=== PATIENT | female | born 1965 | race African-American/Black ===

== ENCOUNTER 2017-07-05 12:44 | Emergency (ER) | payer OTHER ==
[2017-07-05 13:09] VITALS: BP 130/49; PULSE 87; TEMP 97.4; BMI 47.2
== END 2017-07-05 18:25 | disposition left against medical advice (07) ==
LOC: JER 12:44
DX: Z53.21 Procedure and treatment not carried out due to patient leaving prior to being seen by health care provider (principal)
CPT/HCPCS: 99281-25

== ENCOUNTER 2017-08-03 17:27 | Inpatient (IN) | payer OTHER ==
--- NOTE | 2017-08-03 17:44 | PDOC ---
History of Present Illness - General History Source: Patient Exam Limitations: No Limitations - History of Present Illness Initial Comments: 08/03/17 18:25 The patient is a 52 year old female, with a significant past medical history of chronic back pain, ESRD, obesity, hypertension, DM, who presents to the emergency department with, constant chest pain beginning yesterday morning and periumbilical abdominal pain s/p surgery. The patient reports the chest pain is non radiating and described as a dull ache with a burning sensation. The patient reports the chest pain has been progressively worse since yesterday. She reports mild shortness of breath with exertion. The patient reports the periumbilical abdominal pain is at the incision site of a recent surgery performed at [facility] by Dr. José. The patient is unable to recall which specific surgery was performed. The patient also reports she recently missed her dialysis treatment on Monday secondary to the abdominal pain. She denies recent fevers, chills, headache or dizziness. She denies recent nausea, vomit, diarrhea or constipation. She denies recent dysuria, frequency, urgency or hematuria. Allergies: NKA Primary Care Physician: Dr. Lau <Clyde Light - Last Filed: 08/03/17 21:05> <Evelina Araiza - Last Filed: 08/03/17 21:10> - General Stated Complaint: ABD PAIN Time Seen by Provider: 08/03/17 17:44 Past History <Clyde Light - Last Filed: 08/03/17 21:05> - Past Medical History Anemia: No Asthma: Yes Cancer: No Cardiac Disorders: No CVA: No COPD: No CHF: No Dementia: No Diabetes: Yes (DM) Dialysis: Yes (M-W-F) GI Disorders: Yes (UMBALICAL HERNIA) Disorders: No HTN: Yes Hypercholesterolemia: No Liver Disease: No Psychiatric Problems: Yes (PSTD w/ panic disorder) Seizures: No Thyroid Disease: No - Surgical History Abdominal Surgery: Yes (UMB.HERNIA X 5 / mesh placement x2 /) Appendectomy: No Cardiac Surgery: No Cholecystectomy: No Lung Surgery: No Neurologic Surgery: No - Immunization History Immunization Up to Date: Yes - Suicide/Smoking/Psychosocial Hx Smoking Status: Yes Smoking History: Current every day smoker Have you smoked in the past 12 months: Yes Number of Cigarettes Smoked Daily: 20 'Breaking Loose' booklet given: 05/12/17 Hx Alcohol Use: No Drug/Substance Use Hx: No Substance Use Type: None <Evelina Araiza - Last Filed: 08/03/17 21:10> - Past Medical History Allergies/Adverse Reactions: Allergies Allergy/AdvReac Type Severity Reaction Status Date / Time No Known Allergies Allergy Verified 07/05/17 13:04 Home Medications: Ambulatory Orders Albuterol Sulfate Inhaler - [Ventolin Hfa Inhaler -] 1 - 2 inh PO Q4H 05/11/17 Clopidogrel Bisulfate [Plavix -] 75 mg PO DAILY 05/11/17 Furosemide [Lasix] 80 mg PO DAILY 05/11/17 Nystatin Oral Suspension - [Nystatin Oral Susp 801227 Units/5 ML -] 100,000 units PO DAILY 05/11/17 Omeprazole 40 mg PO DAILY 05/11/17 Pregabalin [Lyrica] 100 mg PO DAILY 05/11/17 Salmeterol/Fluticasone [Advair 250Mcg/50Mcg] 1 inh PO BID 05/11/17 Simvastatin 40 mg PO DAILY 05/11/17 Review of Systems - Review of Systems Comments:: 08/03/17 18:27 GENERAL/CONSTITUTIONAL: No fever or chills. No weakness. HEAD, EYES, EARS, NOSE AND THROAT: No change in vision. No ear pain or discharge. No sore throat. CARDIOVASCULAR: +Chest pain. +Mild shortness of breath with walking. RESPIRATORY: No cough, wheezing, or hemoptysis. GASTROINTESTINAL: +Abdominal pain at the periumbilical surgical site. No nausea , vomiting, diarrhea or constipation. GENITOURINARY: No dysuria, frequency, or change in urination. MUSCULOSKELETAL: No joint or muscle swelling or pain. +Back pain (pt. states is chronic). SKIN: No rash NEUROLOGIC: No headache, vertigo, loss of consciousness, or change in strength/ sensation. ENDOCRINE: No increased thirst. No abnormal weight change. HEMATOLOGIC/LYMPHATIC: No anemia, easy bleeding, or history of blood clots. ALLERGIC/IMMUNOLOGIC: No hives or skin allergy. <Clyde Light - Last Filed: 08/03/17 21:05> *Physical Exam - Vital Signs Last Vital Signs Temp Pulse Resp BP Pulse Ox 97.8 F 81 18 144/98 100 01/25/18 17:30 08/03/17 17:30 08/03/17 17:30 08/03/17 17:30 08/03/17 17:30 - Physical Exam Comments: 08/03/17 18:29 GENERAL: +Morbidly obese. Awake, alert, and fully oriented. HEAD: No signs of trauma EYES: PERRLA, EOMI, sclera anicteric, conjunctiva clear ENT: Auricles normal inspection, hearing grossly normal, nares patent, oropharynx clear without exudates. Moist mucosa NECK: Normal ROM, supple, no lymphadenopathy, JVD, or masses LUNGS: +Lung sounds diminished bilaterally. HEART: Regular rate and rhythm, normal S1 and S2, no murmurs, rubs or gallops ABDOMEN: +Periumbilical surgical incision with drainage. Soft, normoactive bowel sounds. EXTREMITIES: +Right upper extremity fistula. 2+ pedal edema in the legs bilaterally. No clubbing or cyanosis. NEUROLOGICAL: Cranial nerves II through XII grossly intact. Normal speech. SKIN: Warm, Dry, normal turgor, no rashes or lesions noted. <Clyde Light - Last Filed: 08/03/17 21:05> Heart Score/ECG Review - ECG Intrepretation Comment:: 08/03/17 19:43 sinus at 80, nl axis, nl interval, low voltage ekg, no acute st/t wave findings , t wave flattening diffusely <Evelina Araiza - Last Filed: 08/03/17 21:10> ED Treatment Course - RADIOLOGY Radiograph Interpretation: 08/03/17 20:42 EXAM#: TYPE/EXAM: RESULT: [id number] CT/ABDOMEN PELVIS CT W/O CONTR HISTORY PROVIDED: Abdominal pain TECHNIQUE: Sequential axial images were obtained from the domes of the diaphragm through the symphysis pubis. The study is limited without the use of any contrast material. The lung bases are clear. The kidneys are enlarged with innumerable small cysts bilaterally. This appearance is consistent with adult polycystic kidney disease. Clinical correlation is advised. There is no evidence of hydronephrosis or acute renal pathology. The liver is normal in size. It is hypodense in texture consistent with diffuse fatty infiltration. No mass lesions are identified within the liver. The spleen, pancreas and adrenal glands demonstrate no significant abnormalities. The gallbladder is clear. There is no evidence of intra-abdominal or retroperitoneal lymphadenopathy or fluid collections. There is no evidence of pneumoperitoneum, bowel obstruction or intra-abdominal abscess. There is no CT evidence of acute appendicitis or diverticulitis. Examination of the pelvis demonstrates no evidence of pelvic masses, fluid collections or lymphadenopathy. The patient is S/P mesh hernia repair of the lower anterior abdominal wall. There is no evidence of acute bony pathology. IMPRESSION: 1. Adult polycystic kidney disease. 2. Diffuse fatty infiltration of the liver. 3. No acute pathology within the abdomen or pelvis. Please see above discussion. Reported By: Markus Brian MD <Clyde Light - Last Filed: 08/03/17 21:05> Medical Decision Making - Medical Decision Making 08/03/17 19:[address] Harley at 7:15 pm. Page returned by Dr. Harley at 7:26 pm. Page sent to Dr. Hennessy at 8:12 pm. Page returned immediately by Dr. Miranda (adult basic education instructor). Page sent to Dr. Lau at 8:25 pm. Pending call back. Second page to Dr. Lau at 8:45 pm. Pending call back. Page sent to Dr. Lau (Cell) at 8:50 pm. Page returned immediately. <Clyde Light - Last Filed: 08/03/17 21:05> - Medical Decision Making 08/03/17 19:38 a/p: 52yo female with cp, abd pain, fluid overload, esrd and missed 1 week of hd -labs, cultures, abx -ekg -cxr -abd/pelvis ct -infected wound to anterior abd wall -will discuss with nephro -will need admission 08/03/17 19:39 after multiple attempts to obtain iv access unable to obtain discussed with DR. Harley who will draw labs on hd and set up for abx on hd will give vanc and gent on HD microblog sent to [facility] for admission 08/03/17 20:[address] doll who will be in to see the patient will call the ICU for HD setup call placed to Dr. Yoo 08/03/17 20:[address] Jacobo who accepts pt to the ICU 08/03/17 21:[address] Holcomb who accepts pt to service under Dr. Morton <Evelina Araiza - Last Filed: 08/03/17 21:10> *DC/Admit/Observation/Transfer - Attestations Scribe Attestion: 08/03/17 18:33 Documentation prepared by Clyde Light, acting as director of medical education for Evelina Araiza DO. <Clyde Light - Last Filed: 08/03/17 21:05> - Discharge Dispostion Admit: Yes - Attestations Physician Attestion: 08/03/17 19:43 I, Dr. Evelina Araiza DO, attest that this document has been prepared under my direction and personally reviewed by me in its entirety. I further attest, that it accurately reflects all work, treatment, procedures and medical decision -making performed by me. <Evelina Araiza - Last Filed: 08/03/17 21:10> Diagnosis at time of Disposition: Obesity, ESRD (end stage renal disease), Abdominal pain, HTN (hypertension), Volume overload, Chest pain - Discharge Dispostion Condition at time of disposition: Fair - Referrals Referrals: Travis Orta MD [Primary Care Provider] - - Patient Instructions - Post Discharge Activity
[2017-08-03 18:09] VITALS: BMI 476.3
[2017-08-03] MEDS ORDERED: GENTAMICIN INJECTION 100 MG in DEXTROSE 5%-WATER - 250 ML IVPB SCH (19:45)
[2017-08-03] MEDS ORDERED: GENTAMICIN INJECTION 100 MG in SODIUM CHLORIDE 97.5 ML IVPB ONE (21:05)
--- NOTE | 2017-08-03 21:23 | CONSULT ---
Consult Consult Specialty:: Nephrology Reason for Consultation:: ESRD on HD - History of Present Illness Chief Complaint: abdominal discomfort History of Present Illness: Pt is a 52 year old female with pmhx of ESRD, obesity, HTN, DM and chronic abdominal wall wound who presents to the ER complaining of periumbilical pain and increased discharge from her abdominal wound. She denies palpitations or shortness of breath. Her last HD session was on Monday. She complains of chills but denies fevers. She has appetite but says she has not been eating as much as she usually does. She also complains of chest discomfort that has been intermittent for the last 5 days. ER is usable to get IV access or draw labs. I was called for HD and asked to send bloodwork. - History Source History Provided By: Patient, Medical Record - Past Medical History Cardio/Vascular: Yes: HTN, Other (obesity) Pulmonary: Yes: Asthma, Sleep Apnea (on CPAP at home) Gastrointestinal: Yes: Constipation (chronic on opioids), Diverticulosis, GERD Renal/: Yes: Renal Failure (ESRD on HD for 4 years due to polycystic disease) , Hemodialysis Psych: Yes: Anxiety, Other (post traumatic stress disorder) Musculoskeletal: Yes: Chronic low back pain Endocrine: Yes: Diabetes Mellitus, Hyperparathyroidism - Past Surgical History Past Surgical History: Yes: AV Fistula/Graft (R arm), Hernia Repair (x3) - Alcohol/Substance Use Hx Alcohol Use: No - Smoking History Smoking history: Current every day smoker Have you smoked in the past 12 months: Yes Aproximately how many cigarettes per day: 20 - Social History Usual Living Arrangement: With Child ADL: Support Services (has an aid now has 2 kids) History of Recent Travel: No Home Medications - Allergies Allergies/Adverse Reactions: Allergies Allergy/AdvReac Type Severity Reaction Status Date / Time No Known Allergies Allergy Verified 07/05/17 13:04 - Home Medications Home Medications: Ambulatory Orders Albuterol Sulfate Inhaler - [Ventolin Hfa Inhaler -] 1 - 2 inh PO Q4H 05/11/17 Clopidogrel Bisulfate [Plavix -] 75 mg PO DAILY 05/11/17 Furosemide [Lasix] 80 mg PO DAILY 05/11/17 Nystatin Oral Suspension - [Nystatin Oral Susp 452323 Units/5 ML -] 100,000 units PO DAILY 05/11/17 Omeprazole 40 mg PO DAILY 05/11/17 Pregabalin [Lyrica] 100 mg PO DAILY 05/11/17 Salmeterol/Fluticasone [Advair 250Mcg/50Mcg] 1 inh PO BID 05/11/17 Simvastatin 40 mg PO DAILY 05/11/17 Family Disease History - Family Disease History Family Disease History: Other: Mother (polycystic disease, CVA, brain aneurysm) , Son, Daughter Review of Systems - Review of Systems Constitutional: reports: Chills, Malaise. denies: Fever Eyes: reports: No Symptoms HENT: reports: No Symptoms, Ocular Prosthesis Cardiovascular: reports: Chest Pain, Edema. denies: Palpitations Respiratory: reports: SOB on Exertion Gastrointestinal: reports: Abdominal Pain Genitourinary: reports: No Symptoms Musculoskeletal: reports: No Symptoms Integumentary: reports: No Symptoms Neurological: reports: No Symptoms Endocrine: reports: No Symptoms Hematology/Lymphatic: reports: No Symptoms Psychiatric: reports: No Symptoms Physical Exam Vital Signs: Vital Signs Temperature 97.8 F 08/03/17 17:30 Pulse Rate 81 08/03/17 17:30 Respiratory Rate 18 08/03/17 17:30 Blood Pressure 144/98 08/03/17 17:30 O2 Sat by Pulse Oximetry (%) 100 08/03/17 17:30 Constitutional: Yes: Calm Eyes: Yes: Conjunctiva Clear HENT: Yes: Atraumatic Neck: Yes: Supple Cardiovascular: Yes: S1, S2 Respiratory: Yes: CTA Bilaterally Gastrointestinal: Yes: Soft, Abdomen, Obese, Other (abdominal wall wound that is draining) Renal/: Yes: WNL Musculoskeletal: Yes: WNL Edema: Yes Edema: LLE: 1+, RLE: 1+ Neurological: Yes: Oriented Psychiatric: Yes: Oriented Imaging - Results Chest X-ray: Report Reviewed Cat Scan: Report Reviewed Problem List - Problems (1) Abdominal pain Code(s): R10.9 - UNSPECIFIED ABDOMINAL PAIN Qualifiers: (2) Chest pain Code(s): R07.9 - CHEST PAIN, UNSPECIFIED (3) ESRD (end stage renal disease) Code(s): N18.6 - END STAGE RENAL DISEASE (4) HTN (hypertension) Code(s): I10 - ESSENTIAL (PRIMARY) HYPERTENSION Qualifiers: (5) Obesity Code(s): E66.9 - OBESITY, UNSPECIFIED (6) ESRD (end stage renal disease) on dialysis Code(s): N18.6 - END STAGE RENAL DISEASE; Z99.2 - DEPENDENCE ON RENAL DIALYSIS Assessment/Plan Current Medications Generic Name Dose Route Start Last Admin Trade Name Freq PRN Reason Stop Dose Admin Clopidogrel Bisulfate 75 mg 08/04/17 10:00 Plavix - PO DAILY DAVID Gentamicin Sulfate 100 mg/ 252.5 mls @ 250 mls/hr 08/03/17 19:45 Dextrose IVPB ONCE DAVID Vancomycin HCl 1,000 mg/ 250 mls @ 250 mls/hr 08/03/17 19:41 Dextrose IVPB 08/03/17 20:40 ONCE ONE Protocol Gentamicin Sulfate 100 mg/ 100 mls @ 100 mls/hr 08/03/17 21:05 Sodium Chloride IVPB 08/03/17 22:04 ONCE ONE Vancomycin HCl 1,000 mg/ 250 mls @ 200 mls/hr 08/03/17 21:05 Dextrose IVPB 08/03/17 22:19 ONCE ONE Non-Formulary Medication 80 mg 08/04/17 10:00 Furosemide [Lasix] PO DAILY DAVID Non-Formulary Medication 40 mg 08/04/17 10:00 Omeprazole [Omeprazole] PO DAILY DAVID Non-Formulary Medication 1 inh 08/03/17 22:00 Salmeterol/Fluticasone [Advair 250mcg/50mcg -] PO BID DAVID Pregabalin 100 mg 08/04/17 10:00 Lyrica - PO DAILY DAVID Sevelamer Carbonate 800 mg 08/04/17 08:00 Renvela - PO TIDCM [facility] Impression 1. ESRD 2. abdominal pain 3. hx ischemic bowel 4. htn 5. dm 6. asthma 7. obesity 8. anxiety 9. sleep apnea 10. polycystic kidney disease Plan - will arrange for urgent HD today as pt was last dialyzed on Monday - will send bloodwork on HD - spoke to ER can give abx on HD as well - pt being admitted to the ICU, pending a bed - case discussed with ICU team - ecg 80 bpm - cardio eval - surgery eval - send cultures - will follow Dr Romano
[2017-08-03] MEDS: BUDESONIDE/FORMETEROL FUMARATE 80/4.5 mcg INHALER IH SCH (22:19)
--- NOTE | 2017-08-03 23:59 | CONSULT ---
Consult Consult Specialty:: PULM /CCM Referred by:: Dr. Tequila Velazco Reason for Consultation:: Metabolic Disarray - History of Present Illness Chief Complaint: Abd Pain History of Present Illness: Ms Marlena Rubio is a 52 y/o woman w/ ESRD on HD (Mon//Mon), obesity, HTN, DM and a chronic abd wall wound from a remote abd obstruction sx done @ [facility]. The pt presents to the ED in metabolic disarray in the setting of having missed her last 2 HD sessions. The pt explains that she missed her HD 2/2 abd discomfort. The pt endorses periumbilical pain and increased discharge from her abd wound X 6 Days. She denies any palpitations or SOB. She has an appetite (but states she has not been eating as much as she usually does). The pt does endorse intermittent chest discomfort X past 5 days w/ an increasing pace matching her growing anasarca. She c/o chills but denies any fevers. In the ED pt remark for metabolic disarray. CTAP neg for any acute process. Pt admitted to the ICU now for emergent HD. - History Source History Provided By: Patient, Medical Record - Past Medical History Cardio/Vascular: Yes: HTN, Other (obesity) Pulmonary: Yes: Asthma, Sleep Apnea (on CPAP at home) Gastrointestinal: Yes: Constipation (chronic on opioids), Diverticulosis, GERD Renal/: Yes: Renal Failure (ESRD on HD for 4 years due to polycystic disease) , Hemodialysis Psych: Yes: Anxiety, Other (post traumatic stress disorder) Musculoskeletal: Yes: Chronic low back pain Endocrine: Yes: Diabetes Mellitus, Hyperparathyroidism - Past Surgical History Past Surgical History: Yes: AV Fistula/Graft (R arm), Hernia Repair (x3) - Alcohol/Substance Use Hx Alcohol Use: No - Smoking History Smoking history: Current every day smoker Have you smoked in the past 12 months: Yes Aproximately how many cigarettes per day: 20 - Social History Usual Living Arrangement: With Child ADL: Support Services (has an aid now has 2 kids) History of Recent Travel: No Home Medications - Allergies Allergies/Adverse Reactions: Allergies Allergy/AdvReac Type Severity Reaction Status Date / Time No Known Allergies Allergy Verified 07/05/17 13:04 - Home Medications Home Medications: Ambulatory Orders Albuterol Sulfate Inhaler - [Ventolin Hfa Inhaler -] 1 - 2 inh PO Q4H 05/11/17 Clopidogrel Bisulfate [Plavix -] 75 mg PO DAILY 05/11/17 Furosemide [Lasix] 80 mg PO DAILY 05/11/17 Nystatin Oral Suspension - [Nystatin Oral Susp 155642 Units/5 ML -] 100,000 units PO DAILY 05/11/17 Omeprazole 40 mg PO DAILY 05/11/17 Pregabalin [Lyrica] 100 mg PO DAILY 05/11/17 Salmeterol/Fluticasone [Advair 250Mcg/50Mcg] 1 inh PO BID 05/11/17 Simvastatin 40 mg PO DAILY 05/11/17 Family Disease History - Family Disease History Family Disease History: Other: Mother (polycystic disease, CVA, brain aneurysm) , Son, Daughter Review of Systems Unable to obtain ROS, reason: UTO pt too lethargic @ th Physical Exam Vital Signs: Vital Signs Temperature 97.8 F 08/03/17 17:30 Pulse Rate 81 08/03/17 23:25 Respiratory Rate 14 08/03/17 23:25 Blood Pressure 112/71 08/03/17 23:25 O2 Sat by Pulse Oximetry (%) 97 08/03/17 23:25 Constitutional: Yes: Well Nourished, No Distress, Calm, Obese Eyes: Yes: WNL, Conjunctiva Clear, EOM Intact HENT: Yes: WNL, Atraumatic, Pharyngeal Erythema Neck: Yes: WNL, Supple, Trachea Midline Cardiovascular: Yes: WNL, Regular Rate and Rhythm Respiratory: Yes: WNL, Regular, CTA Bilaterally Gastrointestinal: Yes: WNL, Normal Bowel Sounds, Soft, Abdomen, Obese, Tenderness, Epigastrium ...Rectal Exam: Yes: Deferred Renal/: Yes: CVA Tenderness - Right Breast(s): Yes: WNL Musculoskeletal: Yes: WNL Extremities: Yes: WNL Edema: Yes Edema: LUE: 4+, RUE: 4+, LLE: 4+, RLE: 4+ Peripheral Pulses WNL: Yes Integumentary: Yes: WNL Neurological: Yes: WNL, Alert ...Motor Strength: WNL Psychiatric: Yes: WNL, Alert, Oriented Imaging - Results Chest X-ray: Report Reviewed (CXR 08/03: No acute disease.) Cat Scan: Report Reviewed (CTAP 08/03: 1. Adult polycystic kidney disease. 2. Diffuse fatty infiltration of the liver. 3. No acute pathology within the abdomen or pelvis.) EKG: Image Reviewed (EKG 08/03: RSR in the 80's w/o ect, nml axis, nml intervals , diffuse T-wave flattening.) Problem List - Problems (1) ESRD (end stage renal disease) Code(s): N18.6 - END STAGE RENAL DISEASE (2) Abdominal pain Code(s): R10.9 - UNSPECIFIED ABDOMINAL PAIN Qualifiers: (3) Volume overload Code(s): E87.70 - FLUID OVERLOAD, UNSPECIFIED (4) Obesity Code(s): E66.9 - OBESITY, UNSPECIFIED (5) HTN (hypertension) Code(s): I10 - ESSENTIAL (PRIMARY) HYPERTENSION Qualifiers: (6) Chronic pain disorder Code(s): G89.4 - CHRONIC PAIN SYNDROME (7) Diabetes Code(s): E11.9 - TYPE 2 DIABETES MELLITUS WITHOUT COMPLICATIONS Qualifiers: Diabetes mellitus type: type 2 Diabetes mellitus complication detail: with polyneuropathy 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 ESRD on HD Tue/Thur/Sat 2. infected wound to anterior abd wall 3. hx ischemic bowel 4. htn 5. dm 6. asthma 7. obesity 8. anxiety 9. sleep apnea 10. polycystic kidney disease PLAN: - Admit to ICU - Supp FiO2 prn - IS - Nebs - Chpora Clxr - Emergent HD - RENAL - Abx - surgery eval for abd wound - FSs - SCDs DGL, [facility]NP-[facility] ICU PULM/[facility] [id number]
[2017-08-04] MEDS ORDERED: GENTAMICIN 100 MG/100 ML BAG IVPB ONE (00:30)
[2017-08-04] MEDS ORDERED: VANCOMYCIN 1,000 MG in DEXTROSE 5%-WATER - 250 ML IVPB ONE (00:45)
[2017-08-04] MEDS: VANCOMYCIN 1,000 MG in DEXTROSE 5%-WATER - 250 ML IVPB ONE ×2 (01:52→07:26)
[2017-08-04 02:03] LABS: BASO % 0.3 % (0-2.0); EOS % 1.5 % (0-4.5); HEMATOCRIT 31.7 % (32.4-45.2); HEMOGLOBIN 10.1 GM/dL (10.7-15.3); LYMPH % 23.2 % (8-40); MCH 30.5 pg (25.7-33.7); MCHC 31.8 g/dl (32.0-36.0); MEAN CELL VOLUME 95.7 fl (80-96); MEAN PLT VOLUME 9.5 fl (7.5-11.1); MONO % 5.1 % (3.8-10.2); NEUT % 69.9 % (42.8-82.8); PLATELET COUNT 125 K/MM3 (134-434); RBC 3.31 M/mm3 (3.60-5.2); RDW 18.1 % (11.6-15.6); WHITE BLOOD COUNT 5.2 K/mm3 (4.0-10.0)
[2017-08-04 02:23] LABS: INR 1.02 (0.82-1.09); PROTHROMBIN TIME (PATIENT) 11.5 SEC (9.98-11.88)
[2017-08-04 02:26] LABS: ACTIVATED PTT 33.6 SECONDS (26.9-34.4)
[2017-08-04 02:58] LABS: ALBUMIN 1.2 g/dl (3.4-5.0); ANION GAP 18 (8-16); BILIRUBIN,TOTAL 0.3 mg/dL (0.2-1.0); BLOOD UREA NITROGEN 75 mg/dL (7-18); CALCIUM 7.3 mg/dL (8.5-10.1); CHLORIDE 98 mmol/L (98-107); CO2 19 mmol/L (21-32); GLUCOSE,RANDOM 54 mg/dL (74-106); LIPASE 66 U/L (73-393); MAGNESIUM 1.6 mg/dL (1.8-2.4); POTASSIUM 5.4 mmol/L (3.5-5.1); SGOT/AST 11 U/L (15-37); SGPT/ALT 10 U/L (12-78); SODIUM 135 mmol/L (136-145); TOT PROT 6.3 g/dl (6.4-8.2)
[2017-08-04 03:04] LABS: ALK PHOS 95 U/L (45-117)
[2017-08-04 03:09] LABS: CREATININE 12.4 mg/dL (0.55-1.02)
[2017-08-04 05:38] VITALS: BP 96/69; PULSE 81; TEMP 97.2
--- NOTE | 2017-08-04 08:38 | HP ---
Admitting History and Physical - Primary Care Physician PCP: Elvis Lau - Admission Chief Complaint: called ems because she missed her HD History of Present Illness: had more leg and back pain over the past couple days, so she missed her regular HD, called ems to come to hospital for emergent HD History Source: Patient Limitations to Obtaining History: Other (poor historian) - Past Medical History Cardiovascular: Yes: HTN, Other (obesity) Pulmonary: Yes: Asthma, Sleep Apnea (on CPAP at home) Gastrointestinal: Yes: Constipation (chronic on opioids), Diverticulosis, GERD Renal/: Yes: Renal Failure (ESRD on HD for 4 years due to polycystic disease) , Hemodialysis Psych: Yes: Anxiety, Other (post traumatic stress disorder) Musculoskeletal: Yes: Chronic low back pain Endocrine: Yes: Diabetes Mellitus, Hyperparathyroidism - Past Surgical History Past Surgical History: Yes: AV Fistula/Graft (R arm), Hernia Repair (x3) Additional Past Surgical History: small bowel resection? for small bowel obstruction -abdominal wound with secondary closure - Smoking History Smoking history: Current every day smoker Have you smoked in the past 12 months: Yes Aproximately how many cigarettes per day: 20 - Alcohol/Substance Use Hx Alcohol Use: No - Social History ADL: Support Services (has an aid now has 2 kids) History of Recent Travel: No Home Medications - Allergies Allergies/Adverse Reactions: Allergies Allergy/AdvReac Type Severity Reaction Status Date / Time No Known Allergies Allergy Verified 07/05/17 13:04 - Home Medications Home Medications: Ambulatory Orders Albuterol Sulfate Inhaler - [Ventolin Hfa Inhaler -] 1 - 2 inh PO Q4H 05/11/17 Clopidogrel Bisulfate [Plavix -] 75 mg PO DAILY 05/11/17 Furosemide [Lasix] 80 mg PO DAILY 05/11/17 Nystatin Oral Suspension - [Nystatin Oral Susp 639264 Units/5 ML -] 100,000 units PO DAILY 05/11/17 Omeprazole 40 mg PO DAILY 05/11/17 Pregabalin [Lyrica] 100 mg PO DAILY 05/11/17 Salmeterol/Fluticasone [Advair 250Mcg/50Mcg] 1 inh PO BID 05/11/17 Simvastatin 40 mg PO DAILY 05/11/17 Family Disease History - Family Disease History Family Disease History: Other: Mother (polycystic disease, CVA, brain aneurysm) , Son, Daughter Review of Systems - Review of Systems Constitutional: denies: Chills, Diaphoresis, Fever, Lethargy, Loss of Appetite Cardiovascular: reports: No Symptoms Respiratory: reports: No Symptoms Gastrointestinal: reports: Abdominal Pain (chronic) Musculoskeletal: reports: Back Pain (chronic), Joint Pain Integumentary: reports: Wound (abdominla wound) Psychiatric: reports: No Symptoms Physical Examination Vital Signs: Vital Signs Temperature 97.2 F L 08/04/17 05:27 Pulse Rate 81 08/04/17 05:27 Respiratory Rate 18 08/04/17 05:27 Blood Pressure 96/69 08/04/17 05:27 O2 Sat by Pulse Oximetry (%) 97 08/04/17 03:47 Constitutional: Yes: Well Nourished, Calm, Obese Eyes: Yes: Conjunctiva Clear HENT: Yes: Atraumatic, Normocephalic Neck: Yes: Trachea Midline Cardiovascular: Yes: Regular Rate and Rhythm Respiratory: Yes: CTA Bilaterally Gastrointestinal: Yes: Normal Bowel Sounds, Soft, Abdomen, Obese. No: Tenderness, Epigastrium, Tenderness, Rebound Musculoskeletal: Yes: Back Pain Edema: Yes Edema: LLE: 3+, RLE: 3+ Peripheral Pulses WNL: Yes Wound/Incision: Yes: Other (abdominal wound with secondary closure, clear discharge, no erythema, no pus noted) Neurological: Yes: WNL Labs: CBC, BMP 08/04/17 00:30 08/04/17 01:15 Imaging - Results Chest X-ray: Report Reviewed Cat Scan: Report Reviewed Problem List - Problems (1) ESRD (end stage renal disease) Code(s): N18.6 - END STAGE RENAL DISEASE (2) HTN (hypertension) Code(s): I10 - ESSENTIAL (PRIMARY) HYPERTENSION Qualifiers: Hypertension type: essential hypertension Qualified Code(s): I10 - Essential (primary) hypertension (3) Obesity Code(s): E66.9 - OBESITY, UNSPECIFIED Qualifiers: Obesity type: due to excess calories Obesity classification: adult class 3 (BMI >= 40) Serious obesity comorbidity presence: with serious comorbidity (4) Back pain Code(s): M54.9 - DORSALGIA, UNSPECIFIED Qualifiers: Back pain location: low back pain Chronicity: chronic Back pain laterality: bilateral Sciatica presence: without sciatica Qualified Code(s) : M54.5 - Low back pain; G89.29 - Other chronic pain; G89.29 - Other chronic pain (5) Chronic pain disorder Code(s): G89.4 - CHRONIC PAIN SYNDROME (6) Diabetes Code(s): E11.9 - TYPE 2 DIABETES MELLITUS WITHOUT COMPLICATIONS Qualifiers: Diabetes mellitus type: type 2 Diabetes mellitus complication detail: with polyneuropathy Diabetes mellitus nursing home insulin use: without terminal block assembler use (7) ESRD (end stage renal disease) on dialysis Code(s): N18.6 - END STAGE RENAL DISEASE; Z99.2 - DEPENDENCE ON RENAL DIALYSIS (8) GA on CPAP Code(s): G47.33 - OBSTRUCTIVE SLEEP APNEA (ADULT) (PEDIATRIC) Assessment/Plan HD as per renal no sign of cellulitis at this pount on abdominal wall CT unremarkable, no collection, no abscess pain at baseline-chronic dc planning
--- NOTE | 2017-08-04 09:46 | EKG ---
Test Reason : Blood Pressure : / mmHG Vent. Rate : 080 BPM Atrial Rate : 080 BPM P-R Int : 194 ms QRS Dur : 108 ms QT Int : 404 ms P-R-T Axes : 051 005 044 degrees QTc Int : 465 ms POOR DATA QUALITY, INTERPRETATION MAY BE ADVERSELY AFFECTED NORMAL SINUS RHYTHM POSSIBLE LEFT ATRIAL ENLARGEMENT LOW VOLTAGE QRS Confirmed by SONYA SNEED MD ([id number]) on 08/04/2017 9:46:11 AM Referred By: Confirmed By:SONYA SNEED MD
[2017-08-04] MEDS: SEVELAMER CARBONATE 800 MG TAB (FP) PO SCH ×2 (09:48→12:08)
[2017-08-04] MEDS ORDERED: PT OWN MED DRAWER 7, Y5N ONE ×2 (09:53→11:55)
[2017-08-04] MEDS ORDERED: CLOPIDOGREL BISULFATE 75 MG TABLET (FP) PO SCH (10:00)
[2017-08-04] MEDS ORDERED: ENOXAPARIN NA (PORCINE) 40 MG/0.4 ML DISP.SYRIN SQ SCH ×3 (10:00→13:24)
[2017-08-04] MEDS ORDERED: PREGABALIN 100 MG CAPSULE PO SCH (10:00)
[2017-08-04] MEDS ORDERED: PANTOPRAZOLE 40 MG TABLET (FP) PO SCH (10:00)
[2017-08-04] MEDS ORDERED: FLU VACCINE QUAD 60 MCG/0.5 ML (MDV 17-18) IM ONE (10:00)
[2017-08-04] MEDS ORDERED: FUROSEMIDE 40 MG TABLET (FP) PO SCH (10:00)
--- NOTE | 2017-08-04 11:08 | PN ---
Physical Exam: SUBJECTIVE: Patient seen and examined The patient is a 52 year old female with a PMH of ESRD on HD, obesity, HTN, DM, who is admitted to the ICU for urgent dialysis for metabolic derangement after missing her last dialysis. OBJECTIVE: Vital Signs Period Temp Pulse Resp BP Sys/Chan Pulse Ox Last 24 Hr 97.2 F-97.8 F 77-84 14-18 91-144/67-98 97-100 GENERAL: The patient is awake, alert, and fully oriented, in no acute distress. HEAD: Normal with no signs of trauma. EYES: sclera anicteric, conjunctiva clear. No ptosis. ENT: oropharynx clear without exudates, moist mucous membranes. NECK: Trachea midline, full range of motion, supple. LUNGS: Breath sounds equal, clear to auscultation bilaterally, no wheezes, no crackles, no accessory muscle use. HEART: Regular rate and rhythm, S1, S2 without murmur, rub or gallop. ABDOMEN: Soft, nontender, nondistended, normoactive bowel sounds, no guarding, no rebound, no hepatosplenomegaly, no masses. EXTREMITIES: 2+ pulses, warm, well-perfused,2 + pitting edema. NEUROLOGICAL: Normal speech, gait not observed. PSYCH: Normal mood, normal affect. SKIN: Warm, dry, normal turgor, no rashes or lesions noted Laboratory Results - last 24 hr 08/04/17 08/04/17 08/04/17 00:30 01:14 01:15 WBC 5.2 RBC 3.31 L Hgb 10.1 L Hct 31.7 L MCV 95.7 D MCH 30.5 MCHC 31.8 L RDW 18.1 H D Plt Count 125 L D MPV 9.5 D Neutrophils % 69.9 Lymphocytes % 23.2 D Monocytes % 5.1 Eosinophils % 1.5 Basophils % 0.3 PT with INR 11.50 INR 1.02 PTT (Actin FS) 33.6 Sodium 135 L Potassium 5.4 H Chloride 98 Carbon Dioxide 19 L Anion Gap 18 H BUN 75 H Creatinine 12.4 H* Creat Clearance w eGFR 3.20 Random Glucose 54 L Lactic Acid Calcium 7.3 L Magnesium 1.6 L Total Bilirubin 0.3 D AST 11 L ALT 10 L Alkaline Phosphatase 95 Creatine Kinase 26 Troponin I < 0.02 Total Protein 6.3 L Albumin 1.2 L Lipase 66 L Serum , Qual Blood Type Antibody Screen 08/04/17 08/04/17 08/04/17 01:15 01:17 01:19 WBC RBC Hgb Hct MCV MCH MCHC RDW Plt Count MPV Neutrophils % Lymphocytes % Monocytes % Eosinophils % Basophils % PT with INR INR PTT (Actin FS) Sodium Potassium Chloride Carbon Dioxide Anion Gap BUN Creatinine Creat Clearance w eGFR Random Glucose Lactic Acid 0.9 Calcium Magnesium Total Bilirubin AST ALT Alkaline Phosphatase Creatine Kinase Troponin I Total Protein Albumin Lipase Serum , Qual Negative Blood Type AB POSITIVE Antibody Screen Negative Active Medications Generic Name Dose Route Start Last Admin Trade Name Freq PRN Reason Stop Dose Admin Budesonide/Formoterol Fumarate 2 puff 08/03/17 22:00 08/03/17 22:19 Symbicort 80/4.5mcg - IH Not Given BID DAVID Clopidogrel Bisulfate 75 mg 08/04/17 10:00 08/04/17 09:48 Plavix - PO 75 mg DAILY DAVID Administration Enoxaparin Sodium 40 mg 08/04/17 10:00 Lovenox - SQ DAILY DAVID Furosemide 80 mg 08/04/17 10:00 08/04/17 09:48 Lasix - PO 80 mg DAILY DAVID Administration Pantoprazole Sodium 40 mg 08/04/17 10:00 08/04/17 09:48 Protonix - PO 40 mg DAILY DAVID Administration Pregabalin 100 mg 08/04/17 10:00 Lyrica - PO DAILY DAVID Sevelamer Carbonate 800 mg 08/04/17 08:00 08/04/17 09:48 Renvela - PO 800 mg TIDCM DAVID Administration ASSESSMENT/PLAN: The patient is a 52 year old female with a PMH of ESRD on HD, obesity, HTN, DM, who is admitted to the ICU for urgent dialysis for metabolic derangement after missing her last dialysis. NEURO Alert and oriented x3. No issues currently. -Will continue to monitor. CV #HTN Not currently active. -Continue home lasix. -Will continue to monitor. RESP No issues currently. -Will continue to monitor. GI No Issues currently. -Will continue to monitor. Renal #ESRD on HD Patient received dialysis overnight. Some electrolyte derangement noted on her chemistry, however nothing acutely concerning at this time. -Patient is scheduled to have dialysis tomorrow. -Patient is otherwise stable. -Will continue to monitor. MSK No issues currently FEN/GI -Replete electrolytes PRN, will monitor PPX -Plavix -Protonix DISPO: Stable for d/c home. Visit type - Emergency Visit Emergency Visit: No - New Patient This patient is new to me today: Yes Date on this admission: 08/04/17 - Critical Care Critical Care patient: No
[2017-08-04] MEDS ORDERED: PREGABALIN 50 MG CAPSULE PO SCH (12:04)
[2017-08-04] MEDS: BUDESONIDE/FORMETEROL FUMARATE 80/4.5 mcg INHALER IH SCH (12:08)
--- NOTE | 2017-08-04 12:33 | PN ---
Teaching Attending Note Name of Resident: Jean-Claude Sesay ATTENDING PHYSICIAN STATEMENT I saw and evaluated the patient. I reviewed the resident's note and discussed the case with the resident. I agree with the resident's findings and plan as documented. SUBJECTIVE: Patient seen in the ICU. Feels overall better. No CP or SOB. No acute events overnight. Intake & Output 08/01/17 08/02/17 08/03/17 08/04/17 23:59 23:59 23:59 23:59 Intake Total 0 0 Output Total 0 Balance 0 0 Weight 2689 lb 248 lb 0.321 oz Last Vital Signs Temp Pulse Resp BP Pulse Ox 97.2 F L 81 18 96/69 97 08/04/17 05:27 08/04/17 05:27 08/04/17 05:27 08/04/17 05:27 08/04/17 03:47 Active Medications Budesonide/Formoterol Fumarate (Symbicort 80/4.5mcg -) 2 puff IH BID [facility] Last Admin: 08/04/17 12:08 Dose: 2 puff Clopidogrel Bisulfate (Plavix -) 75 mg PO DAILY [facility] Last Admin: 08/04/17 09:48 Dose: 75 mg Enoxaparin Sodium (Lovenox -) 40 mg SQ DAILY [facility] Furosemide (Lasix -) 80 mg PO DAILY [facility] Last Admin: 08/04/17 09:48 Dose: 80 mg Pantoprazole Sodium (Protonix -) 40 mg PO DAILY [facility] Last Admin: 08/04/17 09:48 Dose: 40 mg Pregabalin (Lyrica -) 100 mg PO DAILY [facility] Last Admin: 08/04/17 12:25 Dose: 100 mg Sevelamer Carbonate (Renvela -) 800 mg PO TIDCM [facility] Last Admin: 08/04/17 12:08 Dose: 800 mg Constitutional: Yes: Well Nourished, No Distress, Calm, Obese Eyes: Yes: WNL, Conjunctiva Clear, EOM Intact HENT: Yes: WNL, Atraumatic, Pharyngeal Erythema Neck: Yes: WNL, Supple, Trachea Midline Cardiovascular: Yes: WNL, Regular Rate and Rhythm Respiratory: Yes: WNL, Regular, CTA Bilaterally Gastrointestinal: Yes: WNL, Normal Bowel Sounds, Soft, Abdomen, Obese, Tenderness, Epigastrium ...Rectal Exam: Yes: Deferred Renal/: Yes: CVA Tenderness - Right Breast(s): Yes: WNL Musculoskeletal: Yes: WNL Extremities: Yes: WNL Edema: Yes Edema: LUE: 4+, RUE: 4+, LLE: 4+, RLE: 4+ Peripheral Pulses WNL: Yes Integumentary: Yes: WNL Neurological: Yes: WNL, Alert ...Motor Strength: WNL Psychiatric: Yes: WNL, Alert, Oriented Laboratory Results - last 24 hr 08/04/17 08/04/17 08/04/17 00:30 01:14 01:15 WBC 5.2 RBC 3.31 L Hgb 10.1 L Hct 31.7 L MCV 95.7 D MCH 30.5 MCHC 31.8 L RDW 18.1 H D Plt Count 125 L D MPV 9.5 D Neutrophils % 69.9 Lymphocytes % 23.2 D Monocytes % 5.1 Eosinophils % 1.5 Basophils % 0.3 PT with INR 11.50 INR 1.02 PTT (Actin FS) 33.6 Sodium 135 L Potassium 5.4 H Chloride 98 Carbon Dioxide 19 L Anion Gap 18 H BUN 75 H Creatinine 12.4 H* Creat Clearance w eGFR 3.20 Random Glucose 54 L Lactic Acid Calcium 7.3 L Magnesium 1.6 L Total Bilirubin 0.3 D AST 11 L ALT 10 L Alkaline Phosphatase 95 Creatine Kinase 26 Troponin I < 0.02 Total Protein 6.3 L Albumin 1.2 L Lipase 66 L Serum , Qual Blood Type Antibody Screen 08/04/17 08/04/17 08/04/17 01:15 01:17 01:19 WBC RBC Hgb Hct MCV MCH MCHC RDW Plt Count MPV Neutrophils % Lymphocytes % Monocytes % Eosinophils % Basophils % PT with INR INR PTT (Actin FS) Sodium Potassium Chloride Carbon Dioxide Anion Gap BUN Creatinine Creat Clearance w eGFR Random Glucose Lactic Acid 0.9 Calcium Magnesium Total Bilirubin AST ALT Alkaline Phosphatase Creatine Kinase Troponin I Total Protein Albumin Lipase Serum , Qual Negative Blood Type AB POSITIVE Antibody Screen Negative Problem List - Problems (1) ESRD (end stage renal disease) Code(s): N18.6 - END STAGE RENAL DISEASE (2) Abdominal pain Code(s): R10.9 - UNSPECIFIED ABDOMINAL PAIN Qualifiers: (3) Volume overload Code(s): E87.70 - FLUID OVERLOAD, UNSPECIFIED (4) Obesity Code(s): E66.9 - OBESITY, UNSPECIFIED (5) HTN (hypertension) Code(s): I10 - ESSENTIAL (PRIMARY) HYPERTENSION Qualifiers: (6) Chronic pain disorder Code(s): G89.4 - CHRONIC PAIN SYNDROME (7) Diabetes Code(s): E11.9 - TYPE 2 DIABETES MELLITUS WITHOUT COMPLICATIONS Qualifiers: Diabetes mellitus type: type 2 Diabetes mellitus complication detail: with polyneuropathy Diabetes mellitus mcfp insulin use: without ocean transportation intermediary use Assessment/Plan ESRD on HD Tue/Thur/Sat Infected wound to anterior abd wall HTN DM Asthma Sleep apnea Polycystic kidney disease PLAN: HD per Renal Need to verify that her access is working properly O2 as needed OOB to chair PO as tolerated D/C planning Dr Yoo
[2017-08-04] MEDS ORDERED: ENOXAPARIN NA (PORCINE) 30 MG/0.3 ML DISP.SYRIN SQ ONE (15:30)
--- NOTE | 2017-08-04 15:58 | PN ---
Progress Note, Physician History of Present Illness: Pt seen and examined at bedside this morning. SHe denies chest pain or shortness of breath. She says that she is going home today. Lab was unable to draw her blood. She tolerated HD last night. She says that she is scheduled for HD tomorrow as outpt. - Current Medication List Current Medications: Active Medications Budesonide/Formoterol Fumarate (Symbicort 80/4.5mcg -) 2 puff IH BID [facility] Last Admin: 08/04/17 12:08 Dose: 2 puff Clopidogrel Bisulfate (Plavix -) 75 mg PO DAILY [facility] Last Admin: 08/04/17 09:48 Dose: 75 mg Furosemide (Lasix -) 80 mg PO DAILY [facility] Last Admin: 08/04/17 09:48 Dose: 80 mg Pantoprazole Sodium (Protonix -) 40 mg PO DAILY [facility] Last Admin: 08/04/17 09:48 Dose: 40 mg Pregabalin (Lyrica -) 100 mg PO DAILY [facility] Last Admin: 08/04/17 12:25 Dose: 100 mg Sevelamer Carbonate (Renvela -) 800 mg PO TIDCM [facility] Last Admin: 08/04/17 12:08 Dose: 800 mg - Objective Vital Signs: Vital Signs Temperature 97.2 F L 08/04/17 05:27 Pulse Rate 81 08/04/17 05:27 Respiratory Rate 18 08/04/17 09:00 Blood Pressure 96/69 08/04/17 05:27 O2 Sat by Pulse Oximetry (%) 97 08/04/17 09:00 Constitutional: Yes: Calm Eyes: Yes: Conjunctiva Clear HENT: Yes: Atraumatic Neck: Yes: Supple Cardiovascular: Yes: S1, S2 Respiratory: Yes: CTA Bilaterally Gastrointestinal: Yes: Soft, Abdomen, Obese Genitourinary: Yes: WNL Musculoskeletal: Yes: WNL Edema: LLE: Trace, RLE: Trace Neurological: Yes: Oriented Psychiatric: Yes: Oriented Labs: CBC, BMP 08/04/17 00:30 08/04/17 01:15 INR, PTT INR 1.02 (0.82-1.09) 08/04/17 01:14 Problem List - Problems (1) Abdominal pain Code(s): R10.9 - UNSPECIFIED ABDOMINAL PAIN Qualifiers: (2) Chest pain Code(s): R07.9 - CHEST PAIN, UNSPECIFIED (3) ESRD (end stage renal disease) Code(s): N18.6 - END STAGE RENAL DISEASE (4) HTN (hypertension) Code(s): I10 - ESSENTIAL (PRIMARY) HYPERTENSION Qualifiers: Hypertension type: essential hypertension Qualified Code(s): I10 - Essential (primary) hypertension (5) Obesity Code(s): E66.9 - OBESITY, UNSPECIFIED Qualifiers: Obesity type: due to excess calories Obesity classification: adult class 3 (BMI >= 40) Serious obesity comorbidity presence: with serious comorbidity (6) ESRD (end stage renal disease) on dialysis Code(s): N18.6 - END STAGE RENAL DISEASE; Z99.2 - DEPENDENCE ON RENAL DIALYSIS Assessment/Plan Current Medications Generic Name Dose Route Start Last Admin Trade Name Freq PRN Reason Stop Dose Admin Budesonide/Formoterol Fumarate 2 puff 08/03/17 22:00 08/04/17 12:08 Symbicort 80/4.5mcg - IH 2 puff BID DAVID Administration Clopidogrel Bisulfate 75 mg 08/04/17 10:00 08/04/17 09:48 Plavix - PO 75 mg DAILY DAVID Administration Furosemide 80 mg 08/04/17 10:00 08/04/17 09:48 Lasix - PO 80 mg DAILY DAIVD Administration Pantoprazole Sodium 40 mg 08/04/17 10:00 08/04/17 09:48 Protonix - PO 40 mg DAILY DAVID Administration Pregabalin 100 mg 08/04/17 12:04 08/04/17 12:25 Lyrica - PO 100 mg DAILY DAVID Administration Sevelamer Carbonate 800 mg 08/04/17 08:00 08/04/17 12:08 Renvela - PO 800 mg TIDCM DAVID Administration Impression 1. ESRD 2. abdominal pain 3. hx ischemic bowel 4. htn 5. dm 6. asthma 7. obesity 8. anxiety 9. sleep apnea 10. polycystic kidney disease Plan - follow cultures - check labs - will dialyze tomorrow if she is still admitted - monitor BP - surgery eval for abd wound - will follow Dr Romano
[2017-08-06 06:47] LABS: HBSAG SCREEN Negative (Negative); HEP A AB, IGM Negative (Negative); HEP B CORE AB, TOT Negative (Negative)
== END 2017-08-04 18:27 | disposition home or self-care (01) | DRG 682 ==
LOC: JER 17:27 → JERBED 21:04 → JICU 23:59
PROVIDERS: ADMIT Internal Medicine; ATTEND Internal Medicine
DX: I12.0 Hypertensive chronic kidney disease with stage 5 chronic kidney disease or end stage renal disease (principal); N18.6 End stage renal disease; Z68.41 Body mass index [BMI] 40.0-44.9, adult; Q61.2 Polycystic kidney, adult type; E66.01 Morbid (severe) obesity due to excess calories; E87.70 Fluid overload, unspecified; E11.22 Type 2 diabetes mellitus with diabetic chronic kidney disease; Z99.2 Dependence on renal dialysis; G89.29 Other chronic pain; M54.9 Dorsalgia, unspecified; J45.909 Unspecified asthma, uncomplicated; F17.210 Nicotine dependence, cigarettes, uncomplicated; E28.2 Polycystic ovarian syndrome; K76.0 Fatty (change of) liver, not elsewhere classified; G47.30 Sleep apnea, unspecified; Z99.89 Dependence on other enabling machines and devices; F43.10 Post-traumatic stress disorder, unspecified; E05.90 Thyrotoxicosis, unspecified without thyrotoxic crisis or storm; F41.9 Anxiety disorder, unspecified
CPT/HCPCS: 36415; 71045-TC; 74176-TC; 80053; 82550; 83605; 83690; 83735; 84484; 84703; 85025; 85610; 85730; 86704; 86706; 86708; 86803; 86850; 86900; 86901; 87040; 87340; 93005; 93010; 97116-GP; 97161-GP; 99285-25

== ENCOUNTER 2017-10-16 14:58 | Inpatient (IN) | payer OTHER ==
--- NOTE | 2017-10-16 16:00 | PDOC ---
History of Present Illness - General Stated Complaint: Altered Mental Status Time Seen by Provider: 10/16/17 15:59 - History of Present Illness Initial Comments: 10/16/17 16:20 Ms. Marlena Rubio is a 52 yo female w/ pmh of chronic back pain, ESRD, obesity, hypertension, DM who presents w/ assisted living home director and daughter as patient was noted to be altered from baseline today when aide stopped by to visit. They report she was mildly febrile on monday however had a full dialysis session on Monday. Ms. Marlena Rubio is minimally responsive at this time. Family reports she is usually quite responsive and able to answer appropriately and hold conversation. Of note Ms. Mendiola has recently been receiving TPA through her dialysis catheter for decreased appetite and decreasing protein. Allergies: NKDA Past History - Past Medical History Allergies/Adverse Reactions: Allergies Allergy/AdvReac Type Severity Reaction Status Date / Time No Known Allergies Allergy Verified 07/05/17 13:04 Home Medications: Ambulatory Orders Albuterol Sulfate Inhaler - [Ventolin HFA Inhaler -] 1 - 2 inh PO Q4H 05/11/17 Furosemide [Lasix] 80 mg PO DAILY 05/11/17 Pregabalin [Lyrica] 100 mg PO DAILY 05/11/17 Salmeterol/Fluticasone [Advair 250Mcg/50Mcg -] 1 inh PO BID 05/11/17 Simvastatin 40 mg PO DAILY 05/11/17 Sevelamer Carbonate [Renvela -] 800 mg PO TIDCM tab 08/04/17 Docusate Sodium [Colace] 100 mg PO 10/16/17 Enoxaparin [Lovenox -] 40 mg SQ DAILY 10/16/17 Fluticasone Propionate [Flovent Diskus] 250 mcg IH 10/16/17 Quetiapine Fumarate [Seroquel -] 200 mg PO HS 10/16/17 Anemia: No Asthma: Yes Cancer: No Cardiac Disorders: No CVA: No COPD: No CHF: No Dementia: No Diabetes: Yes (DM) Dialysis: Yes (T,TH,Sat) GI Disorders: Yes (UMBALICAL HERNIA) Disorders: No HTN: Yes Hypercholesterolemia: No Liver Disease: No Psychiatric Problems: Yes (PTSD) Seizures: No Thyroid Disease: No - Surgical History Abdominal Surgery: Yes (UMB.HERNIA X 5 / mesh placement x2 /) Appendectomy: No Cardiac Surgery: No Cholecystectomy: No GI Surgery: Yes Lung Surgery: No Neurologic Surgery: No - Immunization History Immunization Up to Date: Yes - Suicide/Smoking/Psychosocial Hx Smoking Status: Yes Smoking History: Current every day smoker Have you smoked in the past 12 months: Yes Number of Cigarettes Smoked Daily: 30 Information on smoking cessation initiated: No 'Breaking Loose' booklet given: 05/12/17 Hx Alcohol Use: No Drug/Substance Use Hx: No Substance Use Type: None Hx Substance Use Treatment: No Review of Systems - Review of Systems Comments:: 10/16/17 17:28 Unable to obtain further. *Physical Exam - Vital Signs Last Vital Signs Temp Pulse Resp BP Pulse Ox 100.6 F H 78 11 L 133/78 98 10/16/17 15:26 10/16/17 15:26 10/16/17 15:26 10/16/17 15:26 10/16/17 15:26 - Physical Exam Comments: 10/16/17 17:28 GENERAL: +Awake, minimally responsive, crying. Patient appears globally edematous. HEAD: No signs of trauma, normocephalic, atraumatic EYES: PERRLA, EOMI, sclera anicteric, conjunctiva clear ENT: Auricles normal inspection, hearing grossly normal, nares patent, oropharynx clear without exudates. Moist mucosa NECK: Normal ROM, supple, no lymphadenopathy, JVD, or masses LUNGS: No distress, speaks full sentences, clear to auscultation bilaterally HEART: Regular rate and rhythm, normal S1 and S2, no murmurs, rubs or gallops, peripheral pulses normal and equal bilaterally. ABDOMEN: Soft, nontender, normoactive bowel sounds. No guarding, no rebound. No masses EXTREMITIES: + significant edema on upper and lower extremities bilaterally. Normal inspection, Normal range of motion. No clubbing or cyanosis. NEUROLOGICAL: +Unable to assess. SKIN: Warm, Dry, normal turgor, no rashes or lesions noted. ED Treatment Course - LABORATORY CBC & Chemistry Diagram: 10/16/17 18:18 10/16/17 18:18 Medical Decision Making - Medical Decision Making 10/16/17 19:24 Ms. Marlena Rubio is a 52 yo female w/ pmh as described who presents w/ AMS. Patient noted to be febrile with decreased respirations at presentation and sepsis protocol started. Head CT ordered however negative for acute process. Given patient's presentation and significant comorbidities, admitting patient for further workup inpatient. Laboratory Results - last 24 hr 18 18 18 18:18 18:18 18:18 WBC 4.9 RBC 2.80 L Hgb 9.5 L Hct 28.4 L MCV 101.3 H MCH 33.9 H D MCHC 33.4 RDW 16.5 H Plt Count 151 D MPV 9.2 Neutrophils % 75.4 Lymphocytes % 15.2 D Monocytes % 8.5 Eosinophils % 0.5 Basophils % 0.4 PT with INR 14.90 H INR 1.32 H PTT (Actin FS) 30.3 VBG pH 7.28 L POC VBG pCO2 54.6 H POC VBG pO2 55.3 H Mixed VBG HCO3 25.3 H Sodium Potassium Chloride Carbon Dioxide Anion Gap BUN Creatinine Creat Clearance w eGFR Random Glucose Calcium Total Bilirubin AST ALT Alkaline Phosphatase Total Protein Albumin 10/16/17 18:18 WBC RBC Hgb Hct MCV MCH MCHC RDW Plt Count MPV Neutrophils % Lymphocytes % Monocytes % Eosinophils % Basophils % PT with INR INR PTT (Actin FS) VBG pH POC VBG pCO2 POC VBG pO2 Mixed VBG HCO3 Sodium 138 Potassium 3.5 Chloride 103 Carbon Dioxide 30 Anion Gap 5 L BUN 43 H Creatinine 7.3 H Creat Clearance w eGFR 5.90 Random Glucose 63 L Calcium 8.1 L Total Bilirubin 0.4 D AST 16 ALT 12 Alkaline Phosphatase 79 Total Protein 6.3 L Albumin 1.0 L *DC/Admit/Observation/Transfer Diagnosis at time of Disposition: Altered mental status Qualifiers: Altered mental status type: unspecified Qualified Code(s): R41.82 - Altered mental status, unspecified - Discharge Dispostion Admit: Yes - Referrals Referrals: Elvis Lau MD [Primary Care Provider] - - Patient Instructions - Post Discharge Activity
--- NOTE | 2017-10-16 16:43 | CONSULT ---
Consult Consult Specialty:: Nephrology Reason for Consultation:: ESRD - History of Present Illness Chief Complaint: altered mental status History of Present Illness: Pt is a 52 year old female with pmhx of ESRD, obesity, HTN and DM who presents to the ER with altered mental status. She is accompanied by her daughter. She is awake but not able to give much history. She denies chest pain or shortness of breath. I was called by the primary team to evaluate her as she is on HD. Her last HD session was on Monday. She may have had fevers a few days ago. She denies headache or change in vision. - History Source History Provided By: Patient, Family Member, Medical Record - Past Medical History Cardio/Vascular: Yes: HTN, Other (obesity) Pulmonary: Yes: Asthma, Sleep Apnea (on CPAP at home) Gastrointestinal: Yes: Constipation (chronic on opioids), Diverticulosis, GERD Renal/: Yes: Renal Failure (ESRD on HD for 4 years due to polycystic disease) , Hemodialysis Psych: Yes: Anxiety, Other (post traumatic stress disorder) Musculoskeletal: Yes: Chronic low back pain Endocrine: Yes: Diabetes Mellitus, Hyperparathyroidism - Past Surgical History Past Surgical History: Yes: AV Fistula/Graft (R arm), Hernia Repair (x3) - Alcohol/Substance Use Hx Alcohol Use: No - Smoking History Smoking history: Current every day smoker Have you smoked in the past 12 months: Yes Aproximately how many cigarettes per day: 30 - Social History Usual Living Arrangement: With Child ADL: Support Services (has an aid now has 2 kids) History of Recent Travel: No Home Medications - Allergies Allergies/Adverse Reactions: Allergies Allergy/AdvReac Type Severity Reaction Status Date / Time No Known Allergies Allergy Verified 07/05/17 13:04 - Home Medications Home Medications: Ambulatory Orders Albuterol Sulfate Inhaler - [Ventolin HFA Inhaler -] 1 - 2 inh PO Q4H 05/11/17 Furosemide [Lasix] 80 mg PO DAILY 05/11/17 Pregabalin [Lyrica] 100 mg PO DAILY 05/11/17 Salmeterol/Fluticasone [Advair 250Mcg/50Mcg -] 1 inh PO BID 05/11/17 Simvastatin 40 mg PO DAILY 05/11/17 Sevelamer Carbonate [Renvela -] 800 mg PO TIDCM tab 08/04/17 Docusate Sodium [Colace] 100 mg PO 10/16/17 Enoxaparin [Lovenox -] 40 mg SQ DAILY 10/16/17 Fluticasone Propionate [Flovent Diskus] 250 mcg IH 10/16/17 Quetiapine Fumarate [Seroquel -] 200 mg PO HS 10/16/17 Family Disease History - Family Disease History Family Disease History: Other: Mother (polycystic disease, CVA, brain aneurysm) , Son, Daughter Review of Systems - Review of Systems Constitutional: reports: Fever, Malaise Eyes: reports: No Symptoms HENT: reports: No Symptoms Neck: reports: No Symptoms Cardiovascular: reports: No Symptoms Respiratory: reports: No Symptoms. denies: Cough Gastrointestinal: reports: No Symptoms Genitourinary: reports: Incontinence Musculoskeletal: reports: Muscle Weakness Integumentary: reports: No Symptoms Neurological: reports: Change in LOC Endocrine: reports: No Symptoms Hematology/Lymphatic: reports: No Symptoms Psychiatric: reports: No Symptoms Physical Exam Vital Signs: Vital Signs Temperature 100.6 F H 10/16/17 15:26 Pulse Rate 78 10/16/17 15:26 Respiratory Rate 11 L 10/16/17 15:26 Blood Pressure 133/78 10/16/17 15:26 O2 Sat by Pulse Oximetry (%) 98 10/16/17 15:26 Constitutional: Yes: Calm Eyes: Yes: Conjunctiva Clear Cardiovascular: Yes: S1, S2 Respiratory: Yes: CTA Bilaterally Gastrointestinal: Yes: Soft, Abdomen, Obese Renal/: Yes: Incontinence Musculoskeletal: Yes: Muscle Weakness Edema: Yes Edema: LLE: 1+, RLE: 1+ Neurological: Yes: Confusion Problem List - Problems (1) Diabetes Code(s): E11.9 - TYPE 2 DIABETES MELLITUS WITHOUT COMPLICATIONS (2) ESRD (end stage renal disease) on dialysis Code(s): N18.6 - END STAGE RENAL DISEASE; Z99.2 - DEPENDENCE ON RENAL DIALYSIS (3) HTN (hypertension) Code(s): I10 - ESSENTIAL (PRIMARY) HYPERTENSION Qualifiers: Assessment/Plan Impression 1. ESRD 2. fever 3. change in mental status/confusion 4. htn 5. dm 6. asthma 7. obesity 8. anxiety 9. sleep apnea 10. hx of acute psychosis/delusions Plan - send bloodwork including cbc and bmp - send blood and urine cultures - check cxr - avoid sedatives - discussed with ER team - pt due for HD tomorrow Dr Romano
--- NOTE | 2017-10-16 16:48 | PDOC ---
Attending Attestation - ED Attending Attestation I have performed the following: I have examined & evaluated the patient, The case was reviewed & discussed with the resident, I agree w/resident's findings & plan, Exceptions are as noted - Medical Decision Making 10/16/17 16:46 52 yo female w/ pmh of chronic back pain, ESRD, obesity, hypertension, DM dialysis t/r/sat here for AMS since last 3 days. has had low grade temp 3 days ago. no n/v. dry cough. decreased po intake. more sleepy than normal. due for dialysis tomorrow. dialysis via left tunneled rac. differential: sepsis, electrolyte abnormality, infected catheter, ich, pt on lovenox. plan cbc lytes ekg ct head. cxr ua. will josh require admission for ams, and dialysis tomorrow. <Viktoriya Huber - Last Filed: 10/16/17 16:49> - HPI HPI: 10/16/17 18:27 Pt is a 52 yo F with a PMHx of chronic back pain, ESRD (on HD t/r/sat) , obesity , hypertension, DM, who presents to the ED with AMS. As per stitch rubber and daughter at bedside, patient has been increasingly lethargic and weak for the past 3 days. Benefits Processor reports patient is febrile and has dry cough. Patients last HD was on Monday ( 2 days ago). Upon evaluation, patient is tearful. PCP: Dr. Lau - Physicial Exam PE: 10/16/17 18:27 GENERAL: Awake, alert, and fully oriented, in no acute distress. +Tearful. HEAD: No signs of trauma EYES: PERRLA, EOMI, sclera anicteric, conjunctiva clear ENT: Auricles normal inspection, nares patent. +Dry mucous membranes and crusted lips. NECK: Normal ROM, supple, no lymphadenopathy, JVD, or masses LUNGS: Breath sounds equal, clear to auscultation bilaterally. No wheezes, and no crackles HEART: Regular rate and rhythm, normal S1 and S2, no murmurs, rubs or gallops ABDOMEN: Obese but soft. Nontender, normoactive bowel sounds. No guarding, no rebound. No masses EXTREMITIES: Normal range of motion. No clubbing or cyanosis. No cords, erythema , or tenderness. +Bilateral edema. NEUROLOGICAL: Normal speech. Awake and alert moving all extremities. SKIN: +L tunnelled catheter. CDI. No erythema. Warm, Dry, normal turgor, no rashes or lesions noted. - Medical Decision Making 10/16/17 18:31 Documentation prepared by Keila Bermoe, acting as medical administrative assistant for Viktoriya Huber MD, MD/DO. <Keila Bermeo - Last Filed: 10/16/17 18:32> Heart Score/ECG Review #1 General ECG Interpretation: Sinus Rhythm, Normal Rate (91), Normal Intervals, No acute ischemic changes Compared to previous ECG there are: Other (TWI v1 - v3.) <Viktoriya Huber - Last Filed: 10/16/17 16:49>
[2017-10-16] MEDS ORDERED: VANCOMYCIN 1,000 MG in DEXTROSE 5%-WATER - 250 ML IVPB ONE (18:18)
[2017-10-16] MEDS ORDERED: PIPERACIL/TAZOB 3.375 GM 3.375 GM/50 ML PREMIX IVPB ONE (18:19)
[2017-10-16] MEDS ORDERED: ACETAMINOPHEN 1000 MG/100 ML VIAL (NON FORMULARY) IVPB ONE (18:19)
[2017-10-16] MEDS ORDERED: PIPERACILLIN/TAZOB 3.375 GM 3.375 GM in DEXTROSE 5%-WATER - 50 ML IVPB ONE (18:30)
[2017-10-16 18:37] LABS: BASO % 0.4 % (0-2.0); EOS % 0.5 % (0-4.5); HEMATOCRIT 28.4 % (32.4-45.2); HEMOGLOBIN 9.5 GM/dL (10.7-15.3); LYMPH % 15.2 % (8-40); MCH 33.9 pg (25.7-33.7); MCHC 33.4 g/dl (32.0-36.0); MEAN CELL VOLUME 101.3 fl (80-96); MEAN PLT VOLUME 9.2 fl (7.5-11.1); MONO % 8.5 % (3.8-10.2); NEUT % 75.4 % (42.8-82.8); PLATELET COUNT 151 K/MM3 (134-434); RDW 16.5 % (11.6-15.6); WHITE BLOOD COUNT 4.9 K/mm3 (4.0-10.0)
[2017-10-16 18:39] LABS: VENOUS PC02 54.6 mmHg (38-52); VENOUS PH 7.28 (7.32-7.42); VENOUS PO2 55.3 mmHg (28-48)
[2017-10-16 18:55] LABS: INR 1.32 (0.82-1.09); PROTHROMBIN TIME (PATIENT) 14.9 SEC (9.98-11.88)
[2017-10-16 18:57] LABS: ACTIVATED PTT 30.3 SECONDS (26.9-34.4)
[2017-10-16] MEDS ORDERED: ACETAMINOPHEN INJECTION 100 ML IVPB ONE (19:15)
[2017-10-16] MEDS ORDERED: VANCOMYCIN 1 GRAM (PRE-DOCKED) 1,000 MG/250 ML BAG IVPB ONE (19:15)
[2017-10-16] MEDS ORDERED: PIPERACILLIN/TAZOB 3.375 GM 3.375 GM/50 ML BAG IVPB ONE (19:15)
[2017-10-16 19:17] LABS: ALK PHOS 79 U/L (45-117); ANION GAP 5 (8-16); BILIRUBIN,TOTAL 0.4 mg/dL (0.2-1.0); BLOOD UREA NITROGEN 43 mg/dL (7-18); CALCIUM 8.1 mg/dL (8.5-10.1); CHLORIDE 103 mmol/L (98-107); CO2 30 mmol/L (21-32); CREATININE 7.3 mg/dL (0.55-1.02); GLUCOSE,RANDOM 63 mg/dL (74-106); POTASSIUM 3.5 mmol/L (3.5-5.1); SGOT/AST 16 U/L (15-37); SGPT/ALT 12 U/L (12-78); SODIUM 138 mmol/L (136-145); TOT PROT 6.3 g/dl (6.4-8.2)
[2017-10-16] MEDS ORDERED: SODIUM CHLORIDE 1,000 ML IV STA (19:17)
--- NOTE | 2017-10-16 20:49 | HP ---
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 she is poorly verbal, does not follow commands History Source: Caregiver Limitations to Obtaining History: Clinical Condition - Past Medical History Cardiovascular: Yes: HTN, Other (obesity) Pulmonary: Yes: Asthma, Sleep Apnea (on CPAP at home) Gastrointestinal: Yes: Constipation (chronic on opioids), Diverticulosis, GERD Renal/: Yes: Renal Failure (ESRD on HD for 4 years due to polycystic disease) , Hemodialysis Psych: Yes: Anxiety, Other (post traumatic stress disorder) Musculoskeletal: Yes: Chronic low back pain (on lyrica and percocet at home) Endocrine: Yes: Diabetes Mellitus, Hyperparathyroidism - Past Surgical History Past Surgical History: Yes: AV Fistula/Graft (R arm), Hernia Repair (x3) Additional Past Surgical History: small bowel obstruction, s/p bowel resection and lysis of adhesions - Smoking History Smoking history: Current every day smoker Have you smoked in the past 12 months: Yes Aproximately how many cigarettes per day: 30 - Alcohol/Substance Use Hx Alcohol Use: No - Social History ADL: Support Services (has an aid now, has 2 kids 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) History of Recent Travel: No Home Medications - Allergies Allergies/Adverse Reactions: Allergies Allergy/AdvReac Type Severity Reaction Status Date / Time No Known Allergies Allergy Verified 07/05/17 13:04 - Home Medications Home Medications: Ambulatory Orders Albuterol Sulfate Inhaler - [Ventolin HFA Inhaler -] 1 - 2 inh PO Q4H 05/11/17 Furosemide [Lasix] 80 mg PO DAILY 05/11/17 Pregabalin [Lyrica] 100 mg PO DAILY 05/11/17 Salmeterol/Fluticasone [Advair 250Mcg/50Mcg -] 1 inh PO BID 05/11/17 Simvastatin 40 mg PO DAILY 05/11/17 Sevelamer Carbonate [Renvela -] 800 mg PO TIDCM tab 08/04/17 Docusate Sodium [Colace] 100 mg PO 10/16/17 Enoxaparin [Lovenox -] 40 mg SQ DAILY 10/16/17 Fluticasone Propionate [Flovent Diskus] 250 mcg IH 10/16/17 Quetiapine Fumarate [Seroquel -] 200 mg PO HS 10/16/17 Family Disease History - Family Disease History Family Disease History: Other: Mother (polycystic disease, CVA, brain aneurysm) , Son, Daughter Review of Systems Unable to obtain ROS, reason: does not respond Physical Examination Vital Signs: Vital Signs Temperature 100.6 F H 10/16/17 15:26 Pulse Rate 78 10/16/17 15:26 Respiratory Rate 11 L 10/16/17 15:26 Blood Pressure 133/78 10/16/17 15:26 O2 Sat by Pulse Oximetry (%) 98 10/16/17 15:26 Constitutional: Yes: Anxious, Moderate Distress, Obese Eyes: Yes: Conjunctiva Clear HENT: Yes: Normocephalic Neck: Yes: Trachea Midline Cardiovascular: Yes: Regular Rate and Rhythm Respiratory: Yes: CTA Bilaterally Gastrointestinal: Yes: Normal Bowel Sounds, Soft Edema: LLE: Trace, RLE: Trace Peripheral Pulses WNL: Yes Wound/Incision: Yes: Clean/Dry (well healing abd wall incision, with small almost healed wound) Neurological: Yes: Other (weeping, responds to daughter minimally, recognizes her and me, knows she is in hospital but does not follow commands and does not respond to questions if she was in pain etc., moves ext.equally, "wants to go home" moves all four ext.) Labs: CBC, BMP 10/16/17 18:18 10/16/17 18:18 Imaging - Results Chest X-ray: Report Reviewed Cat Scan: Report Reviewed Problem List - Problems (1) Altered mental status Code(s): R41.82 - ALTERED MENTAL STATUS, UNSPECIFIED Qualifiers: Altered mental status type: unspecified Qualified Code(s): R41.82 - Altered mental status, unspecified (2) Back pain Code(s): M54.9 - DORSALGIA, UNSPECIFIED Qualifiers: Back pain location: low back pain Chronicity: chronic Back pain laterality: bilateral Sciatica presence: without sciatica Qualified Code(s) : M54.5 - Low back pain; G89.29 - Other chronic pain; G89.29 - Other chronic pain (3) Chronic pain disorder Code(s): G89.4 - CHRONIC PAIN SYNDROME (4) ESRD (end stage renal disease) Code(s): N18.6 - END STAGE RENAL DISEASE (5) HTN (hypertension) Code(s): I10 - ESSENTIAL (PRIMARY) HYPERTENSION Qualifiers: (6) GA on CPAP Code(s): G47.33 - OBSTRUCTIVE SLEEP APNEA (ADULT) (PEDIATRIC) Assessment/Plan admit to obs will get neuro eval and possibly psychiatric evaluation if becomes more interactive no sign of sepsis BC were draw, received abx in er, will monitor for now hd tomorrow
[2017-10-16] MEDS ORDERED: ALBUTEROL SO4 18 GM HFA INHALER IH PRN (20:51)
[2017-10-16] MEDS: QUEtiapine FUMARATE 200 MG TABLET PO SCH (23:22)
[2017-10-16] MEDS: ATORVASTATIN CA 20 MG TABLET (FP) PO SCH (23:22)
[2017-10-17 06:46] VITALS: BMI 42.2
[2017-10-17] MEDS: SEVELAMER CARBONATE 800 MG TAB (FP) PO SCH ×4 (08:24→23:02)
[2017-10-17] MEDS: oxyCODONE HCL 5 MG TABLET PO PRN ×2 (09:22→19:53)
[2017-10-17] MEDS ORDERED: PATIENT'S OWN MEDICATION (NON-FORMULARY) (Furosemide [Lasix] 80 MG) PO SCH (10:00)
[2017-10-17] MEDS ORDERED: PATIENT'S OWN MEDICATION (NON-FORMULARY) (Simvastatin [Simvastatin] 40 MG) PO SCH (10:00)
--- NOTE | 2017-10-17 10:36 | EKG ---
Test Reason : Blood Pressure : / mmHG Vent. Rate : 091 BPM Atrial Rate : 091 BPM P-R Int : 154 ms QRS Dur : 102 ms QT Int : 410 ms P-R-T Axes : 049 018 065 degrees QTc Int : 504 ms NORMAL SINUS RHYTHM LOW VOLTAGE QRS CANNOT RULE OUT ANTERIOR INFARCT , AGE UNDETERMINED PROLONGED QT ABNORMAL ECG WHEN COMPARED WITH ECG OF 03-AUG-2017 18:25, NO SIGNIFICANT CHANGE WAS FOUND Confirmed by MD Gomez, Jean-Claude ([id number]) on 10/17/2017 10:36:32 AM Referred By: Confirmed By:Jean-Claude Dyer MD
[2017-10-17] MEDS ORDERED: PT OWN MED DRAWER 7, Y5N ONE ×2 (10:40→21:13)
[2017-10-17] MEDS: FUROSEMIDE 40 MG TABLET (FP) PO SCH (10:46)
[2017-10-17] MEDS: PREGABALIN 100 MG CAPSULE PO SCH (10:47)
[2017-10-17] MEDS: ENOXAPARIN NA (PORCINE) 40 MG/0.4 ML DISP.SYRIN SQ SCH (10:47)
[2017-10-17] MEDS ORDERED: VANCOMYCIN 1,500 MG in DEXTROSE 5%-WATER - 500 ML IVPB ONE (12:01)
[2017-10-17] MEDS ORDERED: GENTAMICIN SO4 *PEDIATRIC* 20 MG/2 ML VIAL IVPB ONE (12:03)
--- NOTE | 2017-10-17 12:24 | PN ---
Progress Note (short form) - Note Progress Note: 4 bottles of GPC in chains more alert conversing able to give history, but still vague CBC, BMP 10/16/17 18:18 10/16/17 18:18 Vital Signs Period Temp Pulse Resp BP Sys/Chan Pulse Ox Last 24 Hr 98.1 F-100.6 F 78-94 11-22 114-133/53-87 95-100 S1S2 RRR lungs cta abd chronic tenderness, ventral incision intact +BS tr edema awake, alert to place and person IMP sepsis-Gram pos bacteremia ESRD due to polycystic kidney ds. morbid obesity chronic pain syndrome PTSD ?recent new HD access-left message to vascular to call back Plan HD today vanco/gent CT abd pelvis possibly echo Problem List - Problems (1) Altered mental status Code(s): R41.82 - ALTERED MENTAL STATUS, UNSPECIFIED Qualifiers: Altered mental status type: unspecified Qualified Code(s): R41.82 - Altered mental status, unspecified (2) Back pain Code(s): M54.9 - DORSALGIA, UNSPECIFIED Qualifiers: Back pain location: low back pain Chronicity: chronic Back pain laterality: bilateral Sciatica presence: without sciatica Qualified Code(s) : M54.5 - Low back pain; G89.29 - Other chronic pain; G89.29 - Other chronic pain (3) Chronic pain disorder Code(s): G89.4 - CHRONIC PAIN SYNDROME (4) ESRD (end stage renal disease) Code(s): N18.6 - END STAGE RENAL DISEASE (5) HTN (hypertension) Code(s): I10 - ESSENTIAL (PRIMARY) HYPERTENSION Qualifiers: (6) GA on CPAP Code(s): G47.33 - OBSTRUCTIVE SLEEP APNEA (ADULT) (PEDIATRIC)
[2017-10-17] MEDS ORDERED: GENTAMICIN INJECTION 120 MG in SODIUM CHLORIDE 250 ML IVPB SCH (13:00)
--- NOTE | 2017-10-17 13:02 | CON.NEURO ---
Consult - Past Medical History Cardio/Vascular: Yes: HTN, Other (obesity) Pulmonary: Yes: Asthma, Sleep Apnea (on CPAP at home) Gastrointestinal: Yes: Constipation (chronic on opioids), Diverticulosis, GERD Renal/: Yes: Renal Failure (ESRD on HD for 4 years due to polycystic disease) , Hemodialysis Psych: Yes: Anxiety, Other (post traumatic stress disorder) Musculoskeletal: Yes: Chronic low back pain (on lyrica and percocet at home) Endocrine: Yes: Diabetes Mellitus, Hyperparathyroidism - Past Surgical History Past Surgical History: Yes: AV Fistula/Graft (R arm), Hernia Repair (x3) - Alcohol/Substance Use Hx Alcohol Use: No - Smoking History Smoking history: Current every day smoker Have you smoked in the past 12 months: Yes Aproximately how many cigarettes per day: 30 - Social History Usual Living Arrangement: With Child ADL: Support Services (has an aid now, has 2 kids 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) History of Recent Travel: No Home Medications - Allergies Allergies/Adverse Reactions: Allergies Allergy/AdvReac Type Severity Reaction Status Date / Time No Known Allergies Allergy Verified 07/05/17 13:04 - Home Medications Home Medications: Ambulatory Orders Albuterol Sulfate Inhaler - [Ventolin HFA Inhaler -] 1 - 2 inh PO Q4H 05/11/17 Furosemide [Lasix] 80 mg PO DAILY 05/11/17 Pregabalin [Lyrica] 100 mg PO DAILY 05/11/17 Salmeterol/Fluticasone [Advair 250Mcg/50Mcg -] 1 inh PO BID 05/11/17 Simvastatin 40 mg PO DAILY 05/11/17 Sevelamer Carbonate [Renvela -] 800 mg PO TIDCM tab 08/04/17 Docusate Sodium [Colace] 100 mg PO 10/16/17 Enoxaparin [Lovenox -] 40 mg SQ DAILY 10/16/17 Fluticasone Propionate [Flovent Diskus] 250 mcg IH 10/16/17 Quetiapine Fumarate [Seroquel -] 200 mg PO HS 10/16/17 Family Disease History - Family Disease History Family Disease History: Other: Mother (polycystic disease, CVA, brain aneurysm) , Son, Daughter Physical Exam-Neuro Vital Signs: Vital Signs Temperature 99.3 F 10/17/17 09:00 Pulse Rate 89 10/17/17 09:00 Respiratory Rate 22 10/17/17 09:00 Blood Pressure 119/56 10/17/17 09:00 O2 Sat by Pulse Oximetry (%) 95 10/17/17 01:45 Labs: CBC, BMP 10/16/17 18:18 10/16/17 18:18 INR, PTT INR 1.32 (0.82-1.09) H 10/16/17 18:18 Assessment/Plan cc episode of confusion HPI 52 year old female , history of multiple medical problem including Chronic back pain, on opioid , ESRD,HTN,DM . She came to hospital for worsening of mental status, poor oral intake and letharginess. There is no headache, no seizure like activity or any aphasia, weakness or numbness . Patient has been improving since she came to hospital. CT head is normal, there is no high gradefever. Patient has been found to be septicemic and is schedule to get abx after HD. PMH as above, umbilical hernia, She is getting dialysis , , and Sat NKDA Home Medication Albuterol Sulfate Inhaler - [Ventolin HFA Inhaler -] 1 - 2 inh PO Q4H 05/11/17 Furosemide [Lasix] 80 mg PO DAILY 05/11/17 Pregabalin [Lyrica] 100 mg PO DAILY 05/11/17 Salmeterol/Fluticasone [Advair 250Mcg/50Mcg -] 1 inh PO BID 05/11/17 Simvastatin 40 mg PO DAILY 05/11/17 Sevelamer Carbonate [Renvela -] 800 mg PO TIDCM tab 08/04/17 Docusate Sodium [Colace] 100 mg PO 10/16/17 Enoxaparin [Lovenox -] 40 mg SQ DAILY 10/16/17 Fluticasone Propionate [Flovent Diskus] 250 mcg IH 10/16/17 Quetiapine Fumarate [Seroquel -] 200 mg PO HS 10/16/17 Percocet ROS,FH,SH reviewed in chart Neurological Examination Alert and able to walk around with support, speech is normal, no evidence of dyarthria or aphasia She is able to follow command, no neck stiffness, afebrile eomi, pupils reactive, face symmetrical Moving all extremity, gets tired easy but no weakness identiifed sensation is normal grossly reflex are generalized diminished ct head unremarkable Assessment- Lethargy and confusion seems to be due to metabolic encephalopathy, no evidence of status epilepticus, meningits and unlikley to be stroke.Encephalopathy could be due to septicemia and Uremia. Plan- continue current level of care, and Abx treatment for septicemia - There is no need for mri of brain or eeg or spinal tap at this time Thanking you so much Jim Gusman MD
--- NOTE | 2017-10-17 14:01 | CON.ID ---
Consult Consult Specialty:: infectious disease Referred by:: dr rivas Reason for Consultation:: positive blood cultures - History of Present Illness Chief Complaint: fever, lethargy History of Present Illness: history fram patient and her weekday aide she was well until Monday- had been eating well, no complaints on monday she had fever of 101.1- the aide got her some tylenol from the drugstore apparently she went to HD on Monday brought to ED yesterday with fever, lethargy and confusion today is awake and alert denies chest pain, abdominal pain nausea or vomiting no diarrhea no cough blood cultures / are positive for gpc chains she recenty had PC changed one month ago she has been getting protein feeding twice a week for the last 2 to 3 weeks via her permacath received vanco/zosyn in ED - History Source History Provided By: Patient, Caregiver Limitations to Obtaining History: No Limitations - Past Medical History Cardio/Vascular: Yes: HTN, Other (obesity) Pulmonary: Yes: Asthma, Sleep Apnea (on CPAP at home) Gastrointestinal: Yes: Constipation (chronic on opioids), Diverticulosis, GERD Renal/: Yes: Renal Failure (ESRD on HD for 4 years due to polycystic disease) , Hemodialysis Psych: Yes: Anxiety, Other (post traumatic stress disorder) Musculoskeletal: Yes: Chronic low back pain (on lyrica and percocet at home) Endocrine: Yes: Diabetes Mellitus, Hyperparathyroidism - Past Surgical History Past Surgical History: Yes: AV Fistula/Graft (R arm), Hernia Repair (x3) - Alcohol/Substance Use Hx Alcohol Use: No - Smoking History Smoking history: Current every day smoker Have you smoked in the past 12 months: Yes Aproximately how many cigarettes per day: 30 - Social History Usual Living Arrangement: With Child ADL: Support Services (has an aid now, has 2 kids [employer]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) History of Recent Travel: No Home Medications - Allergies Allergies/Adverse Reactions: Allergies Allergy/AdvReac Type Severity Reaction Status Date / Time No Known Allergies Allergy Verified 07/05/17 13:04 - Home Medications Home Medications: Ambulatory Orders Albuterol Sulfate Inhaler - [Ventolin HFA Inhaler -] 1 - 2 inh PO Q4H 05/11/17 Furosemide [Lasix] 80 mg PO DAILY 05/11/17 Pregabalin [Lyrica] 100 mg PO DAILY 05/11/17 Salmeterol/Fluticasone [Advair 250Mcg/50Mcg -] 1 inh PO BID 05/11/17 Simvastatin 40 mg PO DAILY 05/11/17 Sevelamer Carbonate [Renvela -] 800 mg PO TIDCM tab 08/04/17 Docusate Sodium [Colace] 100 mg PO 10/16/17 Enoxaparin [Lovenox -] 40 mg SQ DAILY 10/16/17 Fluticasone Propionate [Flovent Diskus] 250 mcg IH 10/16/17 Quetiapine Fumarate [Seroquel -] 200 mg PO HS 10/16/17 Family Disease History - Family Disease History Family Disease History: Other: Mother (polycystic disease, CVA, brain aneurysm) , Son, Daughter Review of Systems - Review of Systems Constitutional: reports: Fever, Lethargy, Loss of Appetite Eyes: reports: No Symptoms HENT: reports: No Symptoms Neck: reports: No Symptoms Cardiovascular: reports: No Symptoms Respiratory: reports: No Symptoms Gastrointestinal: reports: No Symptoms Genitourinary: reports: No Symptoms Physical Exam Vital Signs: Vital Signs Temperature 99.3 F 10/17/17 09:00 Pulse Rate 89 10/17/17 09:00 Respiratory Rate 22 10/17/17 09:00 Blood Pressure 119/56 10/17/17 09:00 O2 Sat by Pulse Oximetry (%) 96 10/17/17 09:00 Constitutional: Yes: Well Nourished, No Distress, Calm Eyes: Yes: Conjunctiva Clear, EOM Intact HENT: Yes: Atraumatic, Normocephalic. No: Thrush Neck: Yes: Supple, Trachea Midline Cardiovascular: Yes: Regular Rate and Rhythm Respiratory: Yes: Regular, CTA Bilaterally Gastrointestinal: Yes: Normal Bowel Sounds, Soft, Other (well healed midline scar) Edema: Yes Edema: LLE: 1+, RLE: 1+ Integumentary: Yes: Other (multiple scars on arms from prior access sites, most recent no thrill or bruit permacath site no tenderness) Labs: CBC, BMP 10/16/17 18:18 10/16/17 18:18 Imaging - Results Chest X-ray: Report Reviewed, Image Reviewed Cat Scan: Report Reviewed Problem List - Problems (1) Bacteremia Code(s): R78.81 - BACTEREMIA (2) ESRD (end stage renal disease) on dialysis Code(s): N18.6 - END STAGE RENAL DISEASE; Z99.2 - DEPENDENCE ON RENAL DIALYSIS (3) Obesity Code(s): E66.9 - OBESITY, UNSPECIFIED Qualifiers: Obesity type: due to excess calories Obesity classification: adult class 3 (BMI >= 40) Serious obesity comorbidity presence: with serious comorbidity Assessment/Plan gram positive bacteremia- ?permacath related no peripheral iv access plan vanco/gent with HD today esr, crp echo ordered repeat blood cultures with HD today d/w renal -vascular to evaluate the PC- can it be removed?- not sure how much access she has left d/w PMD
--- NOTE | 2017-10-17 14:40 | PN ---
Progress Note, Physician History of Present Illness: Pt seen and examined at bedside. She is awake and alert today. She denies shortness of breath. - Current Medication List Current Medications: Active Medications Acetaminophen (Tylenol -) 650 mg PO Q4H PRN PRN Reason: PAIN LEVEL 4-6 WITH OXYCODONE Stop: 10/20/17 09:10 Albuterol Sulfate (Ventolin Hfa Inhaler -) 2 puff IH Q4H PRN PRN Reason: ASTHMA Atorvastatin Calcium (Lipitor -) 20 mg PO [facility] Last Admin: 10/16/17 23:22 Dose: 20 mg Enoxaparin Sodium (Lovenox -) 40 mg SQ DAILY [facility] Last Admin: 10/17/17 10:47 Dose: 40 mg Furosemide (Lasix -) 80 mg PO DAILY [facility] Last Admin: 10/17/17 10:46 Dose: 80 mg Gentamicin Sulfate 120 mg/ (Sodium Chloride) 253 mls @ 250 mls/hr IVPB ONCE [facility] Stop: 10/18/17 12:59 Sodium Chloride (Normal Saline -) 250 mls @ 3,000 mls/hr IV PRN PRN PRN Reason: Hypotension during Dialysis Stop: 10/18/17 14:36 Oxycodone HCl (Roxicodone -) 10 mg PO Q4H PRN PRN Reason: PAIN LEVEL 4-6 Last Admin: 10/17/17 09:22 Dose: 10 mg Pregabalin (Lyrica -) 100 mg PO DAILY [facility] Last Admin: 10/17/17 10:47 Dose: 100 mg Quetiapine Fumarate (Seroquel -) 200 mg PO [facility] Last Admin: 10/16/17 23:22 Dose: Not Given Sevelamer Carbonate (Renvela -) 800 mg PO TIDCM [facility] Last Admin: 10/17/17 12:29 Dose: 800 mg - Objective Vital Signs: Vital Signs Temperature 99.3 F 10/17/17 09:00 Pulse Rate 89 10/17/17 09:00 Respiratory Rate 22 10/17/17 09:00 Blood Pressure 119/56 10/17/17 09:00 O2 Sat by Pulse Oximetry (%) 96 10/17/17 09:00 Constitutional: Yes: Calm Eyes: Yes: Conjunctiva Clear HENT: Yes: Atraumatic Cardiovascular: Yes: S1, S2 Respiratory: Yes: CTA Bilaterally Gastrointestinal: Yes: Normal Bowel Sounds, Soft, Abdomen, Obese Genitourinary: Yes: WNL Musculoskeletal: Yes: WNL Edema: Yes Edema: LLE: Trace, RLE: Trace Neurological: Yes: Oriented Psychiatric: Yes: Oriented Labs: CBC, BMP 10/16/17 18:18 10/16/17 18:18 INR, PTT INR 1.32 (0.82-1.09) H 10/16/17 18:18 Problem List - Problems (1) Diabetes Code(s): E11.9 - TYPE 2 DIABETES MELLITUS WITHOUT COMPLICATIONS (2) ESRD (end stage renal disease) on dialysis Code(s): N18.6 - END STAGE RENAL DISEASE; Z99.2 - DEPENDENCE ON RENAL DIALYSIS (3) HTN (hypertension) Code(s): I10 - ESSENTIAL (PRIMARY) HYPERTENSION Qualifiers: Assessment/Plan Current Medications Generic Name Dose Route Start Last Admin Trade Name Freq PRN Reason Stop Dose Admin Acetaminophen 650 mg 10/17/17 09:11 Tylenol - PO 10/20/17 09:10 Q4H PRN PAIN LEVEL 4-6 WITH OXYCODONE Albuterol Sulfate 2 puff 10/16/17 20:51 Ventolin Hfa Inhaler - IH Q4H PRN ASTHMA Atorvastatin Calcium 20 mg 10/16/17 22:00 10/16/17 23:22 Lipitor - PO 20 mg HS DAVID Administration Enoxaparin Sodium 40 mg 10/17/17 10:00 10/17/17 10:47 Lovenox - SQ 40 mg DAILY [facility] Administration Furosemide 80 mg 10/17/17 10:00 10/17/17 10:46 Lasix - PO 80 mg DAILY [facility] Administration Gentamicin Sulfate 120 mg/ 253 mls @ 250 mls/hr 10/17/17 13:00 Sodium Chloride IVPB 10/18/17 12:59 ONCE DAVID Sodium Chloride 250 mls @ 3,000 mls/hr 10/17/17 14:36 Normal Saline - IV 10/18/17 14:36 PRN PRN Hypotension during Dialysis Oxycodone HCl 10 mg 10/17/17 09:11 10/17/17 09:22 Roxicodone - PO 10 mg Q4H PRN Administration PAIN LEVEL 4-6 Pregabalin 100 mg 10/17/17 10:00 10/17/17 10:47 Lyrica - PO 100 mg DAILY DAVID Administration Quetiapine Fumarate 200 mg 10/16/17 22:00 10/16/17 23:22 Seroquel - PO Not Given HS DAVID Sevelamer Carbonate 800 mg 10/17/17 08:00 10/17/17 12:29 Renvela - PO 800 mg TIDCM DAVID Administration Impression 1. ESRD 2. fever 3. change in mental status/confusion 4. htn 5. dm 6. asthma 7. obesity 8. anxiety 9. sleep apnea 10. hx of acute psychosis/delusions 11. bacteremia Plan - will arrange for HD today - repeat blood cultures on HD from catheter - vascular surgery eval - cont abx - discussed with ID - mental status is markedly improved Dr Romano
[2017-10-17] MEDS ORDERED: HEPARIN NA (PORCINE) 5,000 UNITS/ML 1ML VIAL IVPUSH ONE ×2 (14:47→16:45)
[2017-10-17] MEDS ORDERED: EPOETIN ALFA 3,000 UNIT/1 ML ML IVPUSH ONE (14:48)
[2017-10-17] MEDS ORDERED: SODIUM CHLORIDE 250 ML IV PRN (16:42)
[2017-10-17] MEDS: HEPARIN NA (PORCINE) 5,000 UNITS/ML 1ML VIAL IVPUSH SCH ×2 (16:45→17:45)
[2017-10-17 16:47] LABS: BASO % 0.2 % (0-2.0); EOS % 1.8 % (0-4.5); HEMATOCRIT 26.9 % (32.4-45.2); HEMOGLOBIN 8.9 GM/dL (10.7-15.3); MCH 33.2 pg (25.7-33.7); MEAN CELL VOLUME 100.5 fl (80-96); MEAN PLT VOLUME 9.1 fl (7.5-11.1); PLATELET COUNT 130 K/MM3 (134-434); RBC 2.68 M/mm3 (3.60-5.2); RDW 17.3 % (11.6-15.6); WHITE BLOOD COUNT 3.1 K/mm3 (4.0-10.0)
[2017-10-17] MEDS ORDERED: EPOETIN ALFA 3,000 UNIT, EPOETIN ALFA 2,000 UNIT IVPUSH ONE (17:00)
[2017-10-17 17:21] LABS: ALK PHOS 84 U/L (45-117); ANION GAP 7 (8-16); BILIRUBIN,TOTAL 0.2 mg/dL (0.2-1.0); BLOOD UREA NITROGEN 41 mg/dL (7-18); CALCIUM 7.9 mg/dL (8.5-10.1); CHLORIDE 103 mmol/L (98-107); CO2 30 mmol/L (21-32); CREATININE 6.9 mg/dL (0.55-1.02); GLUCOSE,RANDOM 87 mg/dL (74-106); POTASSIUM 3.1 mmol/L (3.5-5.1); SGOT/AST 16 U/L (15-37); SGPT/ALT 10 U/L (12-78); SODIUM 140 mmol/L (136-145); TOT PROT 5.9 g/dl (6.4-8.2)
[2017-10-17 17:35] LABS: ALBUMIN 0.9 g/dl (3.4-5.0)
--- NOTE | 2017-10-17 18:44 | CON.PSY ---
Psychiatry Consult Chief Complaint: I feel ok now but I need to a Psychiatrist on the outside. I have a therapist who comes to see me. Patient has been on Seroquel, Elavil and ativan for along time. - Previous Psychiatric Treatment Outpatient: Less than 6 mos ago Inpatient: None - Previous Substance Abuse Treatment Outpatient: None Inpatient: None - Reason for Previous Treatment Reason for Previous Treatment: Past Traumatic Stress - Current Medications Current Medications: Active Medications Acetaminophen (Tylenol -) 650 mg PO Q4H PRN PRN Reason: PAIN LEVEL 4-6 WITH OXYCODONE Stop: 10/20/17 09:10 Albuterol Sulfate (Ventolin Hfa Inhaler -) 2 puff IH Q4H PRN PRN Reason: ASTHMA Atorvastatin Calcium (Lipitor -) 20 mg PO HS [facility] Last Admin: 10/16/17 23:22 Dose: 20 mg Enoxaparin Sodium (Lovenox -) 40 mg SQ DAILY [facility] Last Admin: 10/17/17 10:47 Dose: 40 mg Furosemide (Lasix -) 80 mg PO DAILY [facility] Last Admin: 10/17/17 10:46 Dose: 80 mg Gentamicin Sulfate 120 mg/ (Sodium Chloride) 253 mls @ 250 mls/hr IVPB ONCE [facility] Stop: 10/18/17 12:59 Sodium Chloride (Normal Saline -) 250 mls @ 3,000 mls/hr IV PRN PRN PRN Reason: Hypotension during Dialysis Stop: 10/18/17 16:41 Oxycodone HCl (Roxicodone -) 10 mg PO Q4H PRN PRN Reason: PAIN LEVEL 4-6 Last Admin: 10/17/17 09:22 Dose: 10 mg Pregabalin (Lyrica -) 100 mg PO DAILY [facility] Last Admin: 10/17/17 10:47 Dose: 100 mg Quetiapine Fumarate (Seroquel -) 200 mg PO HS [facility] Last Admin: 10/16/17 23:22 Dose: Not Given Sevelamer Carbonate (Renvela -) 800 mg PO TIDCM [facility] Last Admin: 10/17/17 12:29 Dose: 800 mg - Allergies Allergies: Allergies Allergy/AdvReac Type Severity Reaction Status Date / Time No Known Allergies Allergy Verified 07/05/17 13:04 - Current Living Status Usual Living Arrangement: With Child - Current Mental Status Evaluation Appearance: Disheveled Attitude: Cooperative - Affect Affect: Constrictive Appropriateness: Appropriate to Content - Mood Mood: Euthymic - Speech/Language Expressive: Coherent - Psychomotor Activity Psychomotor Activity: Slowed - Thought Process Thought Process: Intact - Thought Content Hallucinations: Absent Delusions: Absent - Self Perception Self Perception: No Impairment - Cognition Attention: Alert Orientation: Time Memory, Immediate Recall: Intact Memory, Short Term: 2/3 Memory, Remote with Promptin/3 - Concentration Serial Sevens Intact: No Simple Calculations Intact: No - Abstraction Proverb Interpretation: Intact Judgement: Intact - Insight Insight: Intact - Impulse Control Impulse Control: Good Control - Suicidal Ideation Suicidal Ideation: No - Homicidal Ideation Homicidal Ideation: No Problem List - Problems (1) PTSD (post-traumatic stress disorder) Code(s): F43.10 - POST-TRAUMATIC STRESS DISORDER, UNSPECIFIED Assessment/Plan Continue with [facility] psych meds. Refer her to a mental health clinic upon discharge.
[2017-10-17] MEDS: ACETAMINOPHEN 325 MG TABLET (FP) PO PRN (19:52)
[2017-10-17] MEDS: ATORVASTATIN CA 20 MG TABLET (FP) PO SCH (22:57)
[2017-10-17] MEDS: QUEtiapine FUMARATE 200 MG TABLET PO SCH (22:58)
[2017-10-18] MEDS: oxyCODONE HCL 5 MG TABLET PO PRN ×3 (03:30→21:27)
[2017-10-18] MEDS: ACETAMINOPHEN 325 MG TABLET (FP) PO PRN ×3 (03:31→21:29)
--- NOTE | 2017-10-18 09:00 | PN ---
Progress Note (short form) - Note Progress Note: CBC, BMP 10/17/17 15:10 10/17/17 15:10 Vital Signs Period Temp Pulse Resp BP Sys/Chan Pulse Ox Last 24 Hr 97.8 F-99.3 F 52-98 18-22 100-148/49-74 96-96 S1S2 RRR lungs cta abd chronic tenderness, ventral incision intact +BS tr edema awake, alert, orientedx3 IMP sepsis-Gram pos bacteremia in chains ESRD due to polycystic kidney ds. morbid obesity chronic pain syndrome PTSD ?recent new HD access-left message to vascular to call back Plan HD Tue, [place], Sat vanco/gent given yesterday CT abd pelvis and echo done reading pending f/up culture sens no iv access failed av grafts on both arms ? need to change permacath in view of bacteremia Problem List - Problems (1) Altered mental status Code(s): R41.82 - ALTERED MENTAL STATUS, UNSPECIFIED Qualifiers: Altered mental status type: unspecified Qualified Code(s): R41.82 - Altered mental status, unspecified (2) Back pain Code(s): M54.9 - DORSALGIA, UNSPECIFIED Qualifiers: Back pain location: low back pain Chronicity: chronic Back pain laterality: bilateral Sciatica presence: without sciatica Qualified Code(s) : M54.5 - Low back pain; G89.29 - Other chronic pain; G89.29 - Other chronic pain (3) Chronic pain disorder Code(s): G89.4 - CHRONIC PAIN SYNDROME (4) ESRD (end stage renal disease) Code(s): N18.6 - END STAGE RENAL DISEASE (5) HTN (hypertension) Code(s): I10 - ESSENTIAL (PRIMARY) HYPERTENSION Qualifiers: (6) GA on CPAP Code(s): G47.33 - OBSTRUCTIVE SLEEP APNEA (ADULT) (PEDIATRIC)
--- NOTE | 2017-10-18 09:12 | PN ---
Progress Note (short form) - Note Progress Note: cc episode of confusion 52 year old female , history of multiple medical problem including Chronic back pain, on opioid , ESRD,HTN,DM . She came to hospital for worsening of mental status, poor oral intake and letharginess. This morning she is much better, and alert and oriented x 3 Neurological Exam Alert and oriented x 3 afebrile eomi, pupils reactive, face symmetrical Moving all extremity, gets tired easy but no weakness identiifed sensation is normal grossly reflex are generalized diminished ct head unremarkable Assessment- Most likley metabolic encephalopathy, she seems to be much improved this morning. No further recommendation from Neuro point of view Thanking you so much Jim Gusman MD
[2017-10-18] MEDS: ENOXAPARIN NA (PORCINE) 40 MG/0.4 ML DISP.SYRIN SQ SCH (09:33)
[2017-10-18] MEDS: FUROSEMIDE 40 MG TABLET (FP) PO SCH (09:33)
[2017-10-18] MEDS: PREGABALIN 100 MG CAPSULE PO SCH (09:33)
[2017-10-18] MEDS: SEVELAMER CARBONATE 800 MG TAB (FP) PO SCH ×3 (09:34→18:27)
--- NOTE | 2017-10-18 09:39 | PN ---
Progress Note (short form) - Note Progress Note: Vascular Surgery - Wilmer Crabtree, Patient well know to Vascular Surgery service. Recently had PC changed one month ago at [facility] by Dr. Cooley ( Vascular) Admitted to [facility] with AMS. Blood cultures x4 are + for GPC chains Her HD schedule is //Mon. --> last HD 10/17/17 She has very poor peripheral iv access Failed AV grafts in both arms Last Vital Signs Temp Pulse Resp BP Pulse Ox 97.9 F 89 18 124/60 96 10/18/17 09:27 10/18/17 09:27 10/18/17 09:27 10/18/17 09:27 10/17/17 21:00 TRENDS 10/16/17 10/16/17 10/17/17 10/17/17 18:18 18:18 15:10 15:10 WBC 4.9 3.1 L D BUN 43 H 41 Creatinine 7.3 H 6.9 Problem List - Problems (1) ESRD (end stage renal disease) on dialysis Assessment/Plan: After a lengthy conversation with Drs. Crabtree, Andrew and Rodger we will continue to observe patient at this time. Her AMS has resolved. No fever or leukocytosis. Last HD session was 10/17/17. She is scheduled for HD tomorrow. Plan until then is as follows: f/u sensitivity iv abx per ID Keep PC in at this time (as this is her ONLY iv access) and use for HD tomorrow. Cath will be removed after HD. She will need shiley cath insertion (under US guidance) as needed until she has negative blood cultures. Code(s): N18.6 - END STAGE RENAL DISEASE; Z99.2 - DEPENDENCE ON RENAL DIALYSIS (2) Bacteremia Code(s): R78.81 - BACTEREMIA
--- NOTE | 2017-10-18 13:16 | PN ---
Progress Note, Physician History of Present Illness: Pt seen and examined at bedside. She is awake and alert. She denies shortness of breath. She denies fevers or chills. - Current Medication List Current Medications: Active Medications Acetaminophen (Tylenol -) 650 mg PO Q4H PRN PRN Reason: PAIN LEVEL 4-6 WITH OXYCODONE Stop: 10/20/17 09:10 Last Admin: 10/18/17 09:46 Dose: 650 mg Albuterol Sulfate (Ventolin Hfa Inhaler -) 2 puff IH Q4H PRN PRN Reason: ASTHMA Atorvastatin Calcium (Lipitor -) 20 mg PO [facility] Last Admin: 10/17/17 22:57 Dose: 20 mg Enoxaparin Sodium (Lovenox -) 40 mg SQ DAILY [facility] Last Admin: 10/18/17 09:33 Dose: 40 mg Furosemide (Lasix -) 80 mg PO DAILY [facility] Last Admin: 10/18/17 09:33 Dose: 80 mg Sodium Chloride (Normal Saline -) 250 mls @ 3,000 mls/hr IV PRN PRN PRN Reason: Hypotension during Dialysis Stop: 10/18/17 16:41 Oxycodone HCl (Roxicodone -) 10 mg PO Q4H PRN PRN Reason: PAIN LEVEL 4-6 Last Admin: 10/18/17 09:47 Dose: 10 mg Pregabalin (Lyrica -) 100 mg PO DAILY [facility] Last Admin: 10/18/17 09:33 Dose: 100 mg Quetiapine Fumarate (Seroquel -) 200 mg PO [facility] Last Admin: 10/17/17 22:58 Dose: 200 mg Sevelamer Carbonate (Renvela -) 800 mg PO TIDCM [facility] Last Admin: 10/18/17 12:39 Dose: 800 mg - Objective Vital Signs: Vital Signs Temperature 97.9 F 10/18/17 09:27 Pulse Rate 89 10/18/17 09:27 Respiratory Rate 18 10/18/17 09:27 Blood Pressure 124/60 10/18/17 09:27 O2 Sat by Pulse Oximetry (%) 96 10/17/17 21:00 Constitutional: Yes: Calm Eyes: Yes: Conjunctiva Clear Cardiovascular: Yes: S1, S2 Respiratory: Yes: CTA Bilaterally Gastrointestinal: Yes: Soft, Abdomen, Obese Genitourinary: Yes: WNL Musculoskeletal: Yes: WNL Edema: Yes Edema: LLE: Trace, RLE: Trace Integumentary: Yes: Tattoos Neurological: Yes: Oriented Psychiatric: Yes: Oriented Labs: CBC, BMP 10/17/17 15:10 10/17/17 15:10 INR, PTT INR 1.32 (0.82-1.09) H 10/16/17 18:18 Problem List - Problems (1) Diabetes Code(s): E11.9 - TYPE 2 DIABETES MELLITUS WITHOUT COMPLICATIONS (2) ESRD (end stage renal disease) on dialysis Code(s): N18.6 - END STAGE RENAL DISEASE; Z99.2 - DEPENDENCE ON RENAL DIALYSIS (3) HTN (hypertension) Code(s): I10 - ESSENTIAL (PRIMARY) HYPERTENSION Qualifiers: Assessment/Plan Current Medications Generic Name Dose Route Start Last Admin Trade Name Freq PRN Reason Stop Dose Admin Acetaminophen 650 mg 10/17/17 09:11 10/18/17 09:46 Tylenol - PO 10/20/17 09:10 650 mg Q4H PRN Administration PAIN LEVEL 4-6 WITH OXYCODONE Albuterol Sulfate 2 puff 10/16/17 20:51 Ventolin Hfa Inhaler - IH Q4H PRN ASTHMA Atorvastatin Calcium 20 mg 10/16/17 22:00 10/17/17 22:57 Lipitor - PO 20 mg HS DAVID Administration Enoxaparin Sodium 40 mg 10/17/17 10:00 10/18/17 09:33 Lovenox - SQ 40 mg DAILY [facility] Administration Furosemide 80 mg 10/17/17 10:00 10/18/17 09:33 Lasix - PO 80 mg DAILY [facility] Administration Sodium Chloride 250 mls @ 3,000 mls/hr 10/17/17 16:42 Normal Saline - IV 10/18/17 16:41 PRN PRN Hypotension during Dialysis Oxycodone HCl 10 mg 10/17/17 09:11 10/18/17 09:47 Roxicodone - PO 10 mg Q4H PRN Administration PAIN LEVEL 4-6 Pregabalin 100 mg 10/17/17 10:00 10/18/17 09:33 Lyrica - PO 100 mg DAILY DAVID Administration Quetiapine Fumarate 200 mg 10/16/17 22:00 10/17/17 22:58 Seroquel - PO 200 mg HS DAVID Administration Sevelamer Carbonate 800 mg 10/17/17 08:00 10/18/17 12:39 Renvela - PO 800 mg TIDCM DAVID Administration Impression 1. ESRD 2. fever 3. change in mental status/confusion 4. htn 5. dm 6. asthma 7. obesity 8. anxiety 9. sleep apnea 10. hx of acute psychosis/delusions 11. bacteremia Plan - prelim for cultures drawn yesterday is positive but not in computer yet - permacath to be removed - check echo - cont abx - check labs in am - cont lasix Dr Romano
[2017-10-18] MEDS ORDERED: PT OWN MED DRAWER 7, Y5N ONE (18:39)
--- NOTE | 2017-10-18 18:45 | PN ---
Progress Note (short form) - Note Progress Note: permacath just removed awake and alert Vital Signs Period Temp Pulse Resp BP Sys/Chan Pulse Ox Last 24 Hr 97.8 F-97.9 F 89-101 18-18 100-136/49-87 94-96 cor-rrr lungs clear abd soft, nt ext no edema CBC, BMP 10/17/17 15:10 10/17/17 15:10 Microbiology 10/17/17 15:40 Blood - Pre-Dialysis Blood Culture - Preliminary Pending Organism 10/16/17 18:18 Blood - Peripheral Venous Blood Culture - Preliminary Group D Strep Or Entero Coccus Presumptive Mrsa (Pbp2a Pos) 10/17/17 15:10 Blood - Pre-Dialysis Blood Culture - Preliminary Pending Organism a/p bacteremia= group d strep and mrsa- permacath removed repeat blood cultures in am repeat vanc and gent levels in am received vanco/gent yesterday f/u echo esrd/hd recent bacteremia at [facility]- awaiting details Problem List - Problems (1) Bacteremia Code(s): R78.81 - BACTEREMIA (2) ESRD (end stage renal disease) on dialysis Code(s): N18.6 - END STAGE RENAL DISEASE; Z99.2 - DEPENDENCE ON RENAL DIALYSIS (3) Obesity Code(s): E66.9 - OBESITY, UNSPECIFIED Qualifiers: Obesity type: due to excess calories Obesity classification: adult class 3 (BMI >= 40) Serious obesity comorbidity presence: with serious comorbidity
--- NOTE | 2017-10-18 18:48 | PN ---
Progress Note (short form) - Note Progress Note: VAscular surgery Pt seen and examined. Permacath removed. Will place shiley when needed for HD Wilmer Crabtree DO
[2017-10-18] MEDS: QUEtiapine FUMARATE 200 MG TABLET PO SCH (21:13)
[2017-10-18] MEDS: ATORVASTATIN CA 20 MG TABLET (FP) PO SCH (21:13)
[2017-10-18 21:49] LABS: URINE APPEARANCE CLOUDY; URINE BILIRUBIN NEGATIVE (<2.0 mg/dL); URINE COLOR YELLOW; URINE GLUCOSE (UA) NEGATIVE (NEGATIVE); URINE KETONE NEGATIVE (NEGATIVE); URINE LEUK ESTERASE NEGATIVE (NEGATIVE); URINE NITRITE NEGATIVE (NEGATIVE); URINE UROBILINOGEN NEGATIVE mg/dL (0.2-1.0)
[2017-10-18 22:12] LABS: URINE PROTEIN 1+ (NEGATIVE)
[2017-10-18 22:15] LABS: EPI CELLS MANY /HPF (FEW); URINE BACTERIA RARE /hpf (NONE SEEN); YEAST MANY
--- NOTE | 2017-10-19 07:33 | PN ---
Progress Note (short form) - Note Progress Note: Vital Signs Period Temp Pulse Resp BP Sys/Chan Pulse Ox Last 24 Hr 97.6 F-98.2 F 76-101 18-20 113-135/60-87 94-94 Permacath was pulled yesterday Microbiology 10/17/17 15:40 Blood Culture - Preliminary Blood - Pre-Dialysis Pending Organism 10/16/17 18:18 Blood Culture - Preliminary Blood - Peripheral Venous Group D Strep Or Entero Coccus Presumptive Mrsa (Pbp2a Pos) 10/17/17 15:10 Blood Culture - Preliminary Blood - Pre-Dialysis Pending Organism S1S2 RRR lungs cta abd chronic tenderness, ventral incision intact +BS tr edema awake, alert, orientedx3 IMP sepsis-MRSA ESRD due to polycystic kidney ds. morbid obesity chronic pain syndrome PTSD Plan vanco/gent level today, redose as needed CT abd pelvis and echo reviewed, no source for bacteremia femoral access for HD until blood cultures clear for HD consults greatly appreciated Problem List - Problems (1) Altered mental status Code(s): R41.82 - ALTERED MENTAL STATUS, UNSPECIFIED Qualifiers: Altered mental status type: unspecified Qualified Code(s): R41.82 - Altered mental status, unspecified (2) Back pain Code(s): M54.9 - DORSALGIA, UNSPECIFIED Qualifiers: Back pain location: low back pain Chronicity: chronic Back pain laterality: bilateral Sciatica presence: without sciatica Qualified Code(s) : M54.5 - Low back pain; G89.29 - Other chronic pain; G89.29 - Other chronic pain (3) Chronic pain disorder Code(s): G89.4 - CHRONIC PAIN SYNDROME (4) ESRD (end stage renal disease) Code(s): N18.6 - END STAGE RENAL DISEASE (5) HTN (hypertension) Code(s): I10 - ESSENTIAL (PRIMARY) HYPERTENSION Qualifiers: (6) GA on CPAP Code(s): G47.33 - OBSTRUCTIVE SLEEP APNEA (ADULT) (PEDIATRIC)
[2017-10-19] MEDS: SEVELAMER CARBONATE 800 MG TAB (FP) PO SCH ×3 (08:42→17:27)
[2017-10-19] MEDS: PREGABALIN 100 MG CAPSULE PO SCH (10:28)
[2017-10-19] MEDS: FUROSEMIDE 40 MG TABLET (FP) PO SCH (11:34)
[2017-10-19] MEDS: ENOXAPARIN NA (PORCINE) 40 MG/0.4 ML DISP.SYRIN SQ SCH (11:35)
[2017-10-19] MEDS: ACETAMINOPHEN 325 MG TABLET (FP) PO PRN ×2 (13:42→21:31)
[2017-10-19] MEDS: oxyCODONE HCL 5 MG TABLET PO PRN ×2 (13:43→21:30)
--- NOTE | 2017-10-19 15:31 | PN ---
Progress Note, Physician History of Present Illness: Pt seen and examined at bedside. She is awake and alert. Her permacath was removed. - Current Medication List Current Medications: Active Medications Acetaminophen (Tylenol -) 650 mg PO Q4H PRN PRN Reason: PAIN LEVEL 4-6 WITH OXYCODONE Stop: 10/20/17 09:10 Last Admin: 10/19/17 13:42 Dose: 650 mg Albuterol Sulfate (Ventolin Hfa Inhaler -) 2 puff IH Q4H PRN PRN Reason: ASTHMA Atorvastatin Calcium (Lipitor -) 20 mg PO HS [facility] Last Admin: 10/18/17 21:13 Dose: 20 mg Enoxaparin Sodium (Lovenox -) 40 mg SQ DAILY [facility] Last Admin: 10/19/17 11:35 Dose: 40 mg Furosemide (Lasix -) 80 mg PO DAILY [facility] Last Admin: 10/19/17 11:34 Dose: 80 mg Oxycodone HCl (Roxicodone -) 10 mg PO Q4H PRN PRN Reason: PAIN LEVEL 4-6 Last Admin: 10/19/17 13:43 Dose: 10 mg Pregabalin (Lyrica -) 100 mg PO DAILY [facility] Last Admin: 10/19/17 10:28 Dose: 100 mg Quetiapine Fumarate (Seroquel -) 200 mg PO HS [facility] Last Admin: 10/18/17 21:13 Dose: 200 mg Sevelamer Carbonate (Renvela -) 800 mg PO TIDCM [facility] Last Admin: 10/19/17 12:37 Dose: 800 mg - Objective Vital Signs: Vital Signs Temperature 82 F L 10/19/17 10:19 Pulse Rate 88 10/19/17 11:35 Respiratory Rate 20 10/19/17 11:35 Blood Pressure 137/71 10/19/17 11:35 O2 Sat by Pulse Oximetry (%) 94 L 10/18/17 21:00 Constitutional: Yes: Calm Eyes: Yes: Conjunctiva Clear HENT: Yes: Atraumatic Cardiovascular: Yes: S1, S2 Respiratory: Yes: CTA Bilaterally Gastrointestinal: Yes: Soft, Abdomen, Obese Musculoskeletal: Yes: WNL Edema: No Integumentary: Yes: Tattoos Neurological: Yes: Oriented Psychiatric: Yes: Oriented Labs: CBC, BMP 10/17/17 15:10 04/10/18 15:10 INR, PTT INR 1.32 (0.82-1.09) H 10/16/17 18:18 Problem List - Problems (1) Diabetes Code(s): E11.9 - TYPE 2 DIABETES MELLITUS WITHOUT COMPLICATIONS (2) ESRD (end stage renal disease) on dialysis Code(s): N18.6 - END STAGE RENAL DISEASE; Z99.2 - DEPENDENCE ON RENAL DIALYSIS (3) HTN (hypertension) Code(s): I10 - ESSENTIAL (PRIMARY) HYPERTENSION Qualifiers: Assessment/Plan Current Medications Generic Name Dose Route Start Last Admin Trade Name Freq PRN Reason Stop Dose Admin Acetaminophen 650 mg 10/17/17 09:11 10/19/17 13:42 Tylenol - PO 10/20/17 09:10 650 mg Q4H PRN Administration PAIN LEVEL 4-6 WITH OXYCODONE Albuterol Sulfate 2 puff 10/16/17 20:51 Ventolin Hfa Inhaler - IH Q4H PRN ASTHMA Atorvastatin Calcium 20 mg 10/16/17 22:00 10/18/17 21:13 Lipitor - PO 20 mg HS DAVID Administration Enoxaparin Sodium 40 mg 10/17/17 10:00 10/19/17 11:35 Lovenox - SQ 40 mg DAILY [facility]ID Administration Furosemide 80 mg 10/17/17 10:00 10/19/17 11:34 Lasix - PO 80 mg DAILY DAVID Administration Linezolid 600 mg 10/19/17 22:00 Zyvox (Restricted To Id) - PO BID DAVID Oxycodone HCl 10 mg 10/17/17 09:11 10/19/17 13:43 Roxicodone - PO 10 mg Q4H PRN Administration PAIN LEVEL 4-6 Pregabalin 100 mg 10/17/17 10:00 10/19/17 10:28 Lyrica - PO 100 mg DAILY [facility]ID Administration Quetiapine Fumarate 200 mg 10/16/17 22:00 10/18/17 21:13 Seroquel - PO 200 mg HS DAVID Administration Sevelamer Carbonate 800 mg 10/17/17 08:00 10/19/17 12:37 Renvela - PO 800 mg TIDCM DAVID Administration Impression 1. ESRD 2. fever 3. change in mental status/confusion 4. htn 5. dm 6. asthma 7. obesity 8. anxiety 9. sleep apnea 10. hx of acute psychosis/delusions 11. bacteremia Plan - follow blood cultures - check bmp - cont abx - may need temporary access, will follow labs tomorrow - cont elbert Romano
--- NOTE | 2017-10-19 15:32 | PN ---
Progress Note, Physician Chief Complaint: ID Polymicrobial bacteremia MRSA and VREF Catheter removed - Current Medication List Current Medications: Active Medications Acetaminophen (Tylenol -) 650 mg PO Q4H PRN PRN Reason: PAIN LEVEL 4-6 WITH OXYCODONE Stop: 10/20/17 09:10 Last Admin: 10/19/17 13:42 Dose: 650 mg Albuterol Sulfate (Ventolin Hfa Inhaler -) 2 puff IH Q4H PRN PRN Reason: ASTHMA Atorvastatin Calcium (Lipitor -) 20 mg PO [facility] Last Admin: 10/18/17 21:13 Dose: 20 mg Enoxaparin Sodium (Lovenox -) 40 mg SQ DAILY [facility] Last Admin: 10/19/17 11:35 Dose: 40 mg Furosemide (Lasix -) 80 mg PO DAILY [facility] Last Admin: 10/19/17 11:34 Dose: 80 mg Oxycodone HCl (Roxicodone -) 10 mg PO Q4H PRN PRN Reason: PAIN LEVEL 4-6 Last Admin: 10/19/17 13:43 Dose: 10 mg Pregabalin (Lyrica -) 100 mg PO DAILY [facility] Last Admin: 10/19/17 10:28 Dose: 100 mg Quetiapine Fumarate (Seroquel -) 200 mg PO HS [facility] Last Admin: 10/18/17 21:13 Dose: 200 mg Sevelamer Carbonate (Renvela -) 800 mg PO TIDCM [facility] Last Admin: 10/19/17 12:37 Dose: 800 mg - Objective Vital Signs: Vital Signs Temperature 82 F L 10/19/17 10:19 Pulse Rate 88 10/19/17 11:35 Respiratory Rate 20 10/19/17 11:35 Blood Pressure 137/71 10/19/17 11:35 O2 Sat by Pulse Oximetry (%) 94 L 10/18/17 21:00 Constitutional: Yes: Obese Neck: Yes: WNL, Supple Cardiovascular: Yes: Regular Rate and Rhythm, S1, S2 Respiratory: Yes: WNL, Regular, CTA Bilaterally Gastrointestinal: Yes: WNL, Normal Bowel Sounds, Soft, Tenderness. No: Tenderness, Epigastrium Labs: CBC, BMP 10/17/17 15:10 10/17/17 15:10 INR, PTT INR 1.32 (0.82-1.09) H 10/16/17 18:18 Assessment/Plan Microbiology 04/09/18 18:18 Blood - Peripheral Venous Blood Culture - Final Vr Ec Faecalis Mr S Aureus 10/16/17 18:18 Blood - Peripheral Venous Blood Culture - Final Vr Ec Faecalis Mr S Aureus 10/17/17 15:40 Blood - Pre-Dialysis Blood Culture - Preliminary Staphylococcus Latex Coag Pos 10/17/17 15:10 Blood - Pre-Dialysis Blood Culture - Preliminary Staphylococcus Latex Coag Pos Laboratory Tests 10/17/17 10/17/17 15:10 15:10 WBC 3.1 L D Hgb 8.9 L Plt Count 130 L BUN 41 H Creatinine 6.9 H Assessment Catheter related polymicrobial bacteremia VREF and MRSA Catheter out yesterday Sensitivity reviewed ( AMP sensitive but that not going to work well here) Better Daptomycin 8mg/kg Right now has no venous access. Plan Repeat the blood cultures LInezolid 600mg bid for now penmding access Daptomycin 850mg dialysis Isolate Ivelisse VALE
[2017-10-19] MEDS: QUEtiapine FUMARATE 200 MG TABLET PO SCH (21:29)
[2017-10-19] MEDS: ATORVASTATIN CA 20 MG TABLET (FP) PO SCH (21:30)
[2017-10-19] MEDS: LINEZOLID 600 MG TABLET (RESTRICTED TO ID) PO SCH (21:30)
[2017-10-20 00:18] LABS: HBSAG SCREEN Negative (Negative); HEP A AB, IGM Negative (Negative); HEP B CORE AB, TOT Negative (Negative)
[2017-10-20 07:40] LABS: BASO % 0.2 % (0-2.0); EOS % 1.5 % (0-4.5); HEMATOCRIT 25.8 % (32.4-45.2); HEMOGLOBIN 8.3 GM/dL (10.7-15.3); LYMPH % 18.9 % (8-40); MCH 32.2 pg (25.7-33.7); MCHC 32.2 g/dl (32.0-36.0); MEAN PLT VOLUME 9.4 fl (7.5-11.1); MONO % 7.1 % (3.8-10.2); NEUT % 72.3 % (42.8-82.8); PLATELET COUNT 148 K/MM3 (134-434); RBC 2.58 M/mm3 (3.60-5.2); RDW 17.3 % (11.6-15.6); WHITE BLOOD COUNT 4.3 K/mm3 (4.0-10.0)
[2017-10-20 07:52] LABS: ANION GAP 8 (8-16); BLOOD UREA NITROGEN 36 mg/dL (7-18); CALCIUM 7.7 mg/dL (8.5-10.1); CHLORIDE 103 mmol/L (98-107); CO2 28 mmol/L (21-32); GLUCOSE,RANDOM 76 mg/dL (74-106); POTASSIUM 3.4 mmol/L (3.5-5.1); SODIUM 139 mmol/L (136-145)
[2017-10-20 08:04] LABS: ALK PHOS 70 U/L (45-117); BILIRUBIN,TOTAL 0.2 mg/dL (0.2-1.0); SGOT/AST 14 U/L (15-37); SGPT/ALT 7 U/L (12-78); TOT PROT 5.8 g/dl (6.4-8.2)
[2017-10-20 08:26] LABS: CREATININE 7.9 mg/dL (0.55-1.02)
--- NOTE | 2017-10-20 08:54 | PN ---
Progress Note (short form) - Note Progress Note: CBC, BMP 10/20/17 06:49 10/20/17 06:49 Microbiology 10/16/17 18:18 Blood Culture - Final Blood - Peripheral Venous Vr Ec Faecalis S Aureus 10/16/17 18:18 Blood Culture - Final Blood - Peripheral Venous Vr Ec Faecalis Mr S Aureus 10/17/17 15:40 Blood Culture - Preliminary Blood - Pre-Dialysis Staphylococcus Latex Coag Pos 10/17/17 15:10 Blood Culture - Preliminary Blood - Pre-Dialysis Staphylococcus Latex Coag Pos Vital Signs Period Temp Pulse Resp BP Sys/Chan Pulse Ox Last 24 Hr 82 F-98.1 F 78-88 18-20 106-137/60-71 98-98 S1S2 RRR lungs cta abd chronic tenderness, ventral incision intact, dry scab +BS tr edema awake, alert, orientedx3 IMP sepsis-MRSA/VRE ESRD due to polycystic kidney ds. morbid obesity chronic pain syndrome PTSD Plan ABx as per ID femoral access for HD until blood cultures clear for HD consults greatly appreciated Problem List - Problems (1) Altered mental status Code(s): R41.82 - ALTERED MENTAL STATUS, UNSPECIFIED Qualifiers: Altered mental status type: unspecified Qualified Code(s): R41.82 - Altered mental status, unspecified (2) Back pain Code(s): M54.9 - DORSALGIA, UNSPECIFIED Qualifiers: Back pain location: low back pain Chronicity: chronic Back pain laterality: bilateral Sciatica presence: without sciatica Qualified Code(s) : M54.5 - Low back pain; G89.29 - Other chronic pain; G89.29 - Other chronic pain (3) Chronic pain disorder Code(s): G89.4 - CHRONIC PAIN SYNDROME (4) ESRD (end stage renal disease) Code(s): N18.6 - END STAGE RENAL DISEASE (5) HTN (hypertension) Code(s): I10 - ESSENTIAL (PRIMARY) HYPERTENSION Qualifiers: (6) GA on CPAP Code(s): G47.33 - OBSTRUCTIVE SLEEP APNEA (ADULT) (PEDIATRIC)
[2017-10-20] MEDS ORDERED: PT OWN MED DRAWER 7, Y5N ONE ×2 (09:16→09:27)
[2017-10-20] MEDS: LINEZOLID 600 MG TABLET (RESTRICTED TO ID) PO SCH (09:22)
[2017-10-20] MEDS: SEVELAMER CARBONATE 800 MG TAB (FP) PO SCH ×4 (09:22→21:42)
[2017-10-20] MEDS: PREGABALIN 100 MG CAPSULE PO SCH (09:22)
[2017-10-20] MEDS: FUROSEMIDE 40 MG TABLET (FP) PO SCH (14:11)
[2017-10-20] MEDS: ENOXAPARIN NA (PORCINE) 40 MG/0.4 ML DISP.SYRIN SQ SCH (14:11)
--- NOTE | 2017-10-20 14:41 | PN ---
Progress Note (short form) - Note Progress Note: ID Order for Linezolid Was to have gotten Daptomycin today but no dialysis done Poor venous access but nurse got peripheral IV started at least for now Selected Entries 10/20/17 09:00 Temperature 97.9 F Pulse Rate 87 Respiratory 18 Rate Blood Pressure 120/69 Microbiology 10/19/17 10:15 Blood - Peripheral Venous Blood Culture - Preliminary NO GROWTH OBTAINED AFTER 24 HOURS, INCUBATION TO CONTINUE FOR 4 DAYS. 10/19/17 08:45 Blood - Peripheral Venous Blood Culture - Preliminary NO GROWTH OBTAINED AFTER 24 HOURS, INCUBATION TO CONTINUE FOR 4 DAYS. Laboratory Tests 10/17/17 10/20/17 15:10 06:49 WBC 4.3 D Hgb 8.3 L Hct 25.8 L Plt Count 148 C-Reactive Protein 24.7 H Assessment Polymicrobial bacteremia VREF MRSA Repea bloods negative Elevated CRP ? Plan Give Daptomycin now through peripheral IV and with dialysis Ivelisse VALE
--- NOTE | 2017-10-20 15:22 | PN ---
Progress Note, Physician History of Present Illness: Pt seen and examined at bedside. She is awake and alert. She denies shortness of breath. - Current Medication List Current Medications: Active Medications Albuterol Sulfate (Ventolin Hfa Inhaler -) 2 puff IH Q4H PRN PRN Reason: ASTHMA Atorvastatin Calcium (Lipitor -) 20 mg PO HS [facility] Last Admin: 10/19/17 21:30 Dose: 20 mg Enoxaparin Sodium (Lovenox -) 40 mg SQ DAILY [facility] Last Admin: 10/20/17 14:11 Dose: 40 mg Furosemide (Lasix -) 80 mg PO DAILY [facility] Last Admin: 10/20/17 14:11 Dose: 80 mg Daptomycin 850 mg/ Sodium (Chloride) 100 mls @ 200 mls/hr IVPB DAILY@1400 DAVID PRN Reason: Protocol Oxycodone HCl (Roxicodone -) 10 mg PO Q4H PRN PRN Reason: PAIN LEVEL 4-6 Last Admin: 10/19/17 21:30 Dose: 10 mg Pregabalin (Lyrica -) 100 mg PO DAILY [facility] Last Admin: 10/20/17 09:22 Dose: 100 mg Quetiapine Fumarate (Seroquel -) 200 mg PO HS [facility] Last Admin: 10/19/17 21:29 Dose: 200 mg Sevelamer Carbonate (Renvela -) 800 mg PO TIDCM [facility] Last Admin: 10/20/17 12:44 Dose: 800 mg - Objective Vital Signs: Vital Signs Temperature 97.9 F 10/20/17 09:00 Pulse Rate 87 10/20/17 09:00 Respiratory Rate 18 10/20/17 09:00 Blood Pressure 120/69 10/20/17 09:00 O2 Sat by Pulse Oximetry (%) 97 10/20/17 09:00 Constitutional: Yes: Calm Eyes: Yes: Conjunctiva Clear HENT: Yes: Atraumatic Neck: Yes: Supple Cardiovascular: Yes: S1, S2 Respiratory: Yes: CTA Bilaterally Gastrointestinal: Yes: Soft Genitourinary: Yes: WNL Musculoskeletal: Yes: WNL Edema: No Integumentary: Yes: Tattoos Neurological: Yes: Oriented Labs: CBC, BMP 10/20/17 06:49 10/20/17 06:49 INR, PTT INR 1.32 (0.82-1.09) H 10/16/17 18:18 Problem List - Problems (1) Diabetes Code(s): E11.9 - TYPE 2 DIABETES MELLITUS WITHOUT COMPLICATIONS (2) ESRD (end stage renal disease) on dialysis Code(s): N18.6 - END STAGE RENAL DISEASE; Z99.2 - DEPENDENCE ON RENAL DIALYSIS (3) HTN (hypertension) Code(s): I10 - ESSENTIAL (PRIMARY) HYPERTENSION Qualifiers: Assessment/Plan Current Medications Generic Name Dose Route Start Last Admin Trade Name Freq PRN Reason Stop Dose Admin Albuterol Sulfate 2 puff 10/16/17 20:51 Ventolin Hfa Inhaler - IH Q4H PRN ASTHMA Atorvastatin Calcium 20 mg 10/16/17 22:00 10/19/17 21:30 Lipitor - PO 20 mg HS [facility]ID Administration Enoxaparin Sodium 40 mg 10/17/17 10:00 10/20/17 14:11 Lovenox - SQ 40 mg DAILY [facility] Administration Furosemide 80 mg 10/17/17 10:00 10/20/17 14:11 Lasix - PO 80 mg DAILY [facility] Administration Daptomycin 850 mg/ Sodium 100 mls @ 200 mls/hr 10/20/17 14:00 Chloride IVPB DAILY@1400 DAVID Protocol Oxycodone HCl 10 mg 10/17/17 09:11 10/19/17 21:30 Roxicodone - PO 10 mg Q4H PRN Administration PAIN LEVEL 4-6 Pregabalin 100 mg 10/17/17 10:00 10/20/17 09:22 Lyrica - PO 100 mg DAILY [facility] Administration Quetiapine Fumarate 200 mg 10/16/17 22:00 10/19/17 21:29 Seroquel - PO 200 mg HS [facility] Administration Sevelamer Carbonate 800 mg 10/17/17 08:00 10/20/17 12:44 Renvela - PO 800 mg TIDCM [facility] Administration Impression 1. ESRD 2. fever 3. change in mental status/confusion 4. htn 5. dm 6. asthma 7. obesity 8. anxiety 9. sleep apnea 10. hx of acute psychosis/delusions 11. bacteremia Plan - check labs in am - may need HD pending bloodwork - permacath has been removed - follow cultures - discussed with vascular and will be on standby for temp access - discussed with medical team - renal diet - cont lasix Dr Romano
[2017-10-20] MEDS: SODIUM CHLORIDE IVPB SCH (16:08)
[2017-10-20] MEDS: DAPTOMYCIN IVPB SCH (16:08)
[2017-10-20] MEDS: oxyCODONE HCL 5 MG TABLET PO PRN ×2 (17:01→21:43)
[2017-10-20] MEDS: ATORVASTATIN CA 20 MG TABLET (FP) PO SCH (21:43)
[2017-10-20] MEDS: QUEtiapine FUMARATE 200 MG TABLET PO SCH (21:43)
[2017-10-21 08:36] LABS: ANION GAP 10 (8-16); BILIRUBIN,TOTAL 0.3 mg/dL (0.2-1.0); BLOOD UREA NITROGEN 42 mg/dL (7-18); CALCIUM 7.9 mg/dL (8.5-10.1); CHLORIDE 102 mmol/L (98-107); CO2 26 mmol/L (21-32); GLUCOSE,RANDOM 78 mg/dL (74-106); POTASSIUM 3.4 mmol/L (3.5-5.1); SGOT/AST 11 U/L (15-37); SGPT/ALT 7 U/L (12-78); SODIUM 138 mmol/L (136-145)
[2017-10-21] MEDS: SEVELAMER CARBONATE 800 MG TAB (FP) PO SCH ×3 (08:37→18:10)
[2017-10-21 08:41] LABS: ALK PHOS 62 U/L (45-117); TOT PROT 5.6 g/dl (6.4-8.2)
[2017-10-21 08:47] LABS: CREATININE 9.5 mg/dL (0.55-1.02)
--- NOTE | 2017-10-21 09:19 | PN ---
Progress Note (short form) - Note Progress Note: CBC, BMP 10/20/17 06:49 10/21/17 07:00 Vital Signs Period Temp Pulse Resp BP Sys/Chan Pulse Ox Last 24 Hr 96.9 F-98.0 F 83-86 16-20 106-135/52-75 S1S2 RRR lungs cta abd chronic tenderness, ventral incision intact, dry scab +BS tr edema awake, alert, orientedx3 denies dyspnea IMP sepsis-MRSA/VRE ESRD due to polycystic kidney ds. morbid obesity chronic pain syndrome PTSD Plan received iv daptomycin yesterday again no iv access next dose would be after HD HD as per renal-for now asymtomatic, k low femoral access for HD until blood cultures clear for HD consults greatly appreciated Problem List - Problems (1) Altered mental status Code(s): R41.82 - ALTERED MENTAL STATUS, UNSPECIFIED Qualifiers: Altered mental status type: unspecified Qualified Code(s): R41.82 - Altered mental status, unspecified (2) Back pain Code(s): M54.9 - DORSALGIA, UNSPECIFIED Qualifiers: Back pain location: low back pain Chronicity: chronic Back pain laterality: bilateral Sciatica presence: without sciatica Qualified Code(s) : M54.5 - Low back pain; G89.29 - Other chronic pain; G89.29 - Other chronic pain (3) Chronic pain disorder Code(s): G89.4 - CHRONIC PAIN SYNDROME (4) ESRD (end stage renal disease) Code(s): N18.6 - END STAGE RENAL DISEASE (5) HTN (hypertension) Code(s): I10 - ESSENTIAL (PRIMARY) HYPERTENSION Qualifiers: (6) GA on CPAP Code(s): G47.33 - OBSTRUCTIVE SLEEP APNEA (ADULT) (PEDIATRIC)
[2017-10-21] MEDS ORDERED: PANTOPRAZOLE 40 MG TABLET (FP) PO SCH (10:00)
[2017-10-21] MEDS ORDERED: PT OWN MED DRAWER 7, Y5N ONE (10:43)
[2017-10-21] MEDS: FUROSEMIDE 40 MG TABLET (FP) PO SCH (10:48)
[2017-10-21] MEDS: PREGABALIN 100 MG CAPSULE PO SCH (10:48)
[2017-10-21] MEDS: ENOXAPARIN NA (PORCINE) 40 MG/0.4 ML DISP.SYRIN SQ SCH (10:48)
[2017-10-21] MEDS: oxyCODONE HCL 5 MG TABLET PO PRN ×2 (15:25→21:49)
[2017-10-21] MEDS: DAPTOMYCIN IVPB SCH (17:11)
[2017-10-21] MEDS: SODIUM CHLORIDE IVPB SCH (17:11)
[2017-10-21] MEDS: ATORVASTATIN CA 20 MG TABLET (FP) PO SCH (21:43)
[2017-10-21] MEDS: QUEtiapine FUMARATE 200 MG TABLET PO SCH (21:43)
--- NOTE | 2017-10-21 23:26 | PN ---
Progress Note (short form) - Note Progress Note: 1. ESRD 2. fever 3. change in mental status/confusion 4. htn 5. dm 6. asthma 7. obesity 8. anxiety 9. sleep apnea 10. hx of acute psychosis/delusions 11. bacteremia Current Medications Albuterol Sulfate (Ventolin Hfa Inhaler -) 2 puff IH Q4H PRN PRN Reason: ASTHMA Atorvastatin Calcium (Lipitor -) 20 mg PO HS [facility] Last Admin: 10/21/17 21:43 Dose: 20 mg Enoxaparin Sodium (Lovenox -) 40 mg SQ DAILY [facility] Last Admin: 10/21/17 10:48 Dose: 40 mg Furosemide (Lasix -) 80 mg PO DAILY [facility] Last Admin: 10/21/17 10:48 Dose: 80 mg Daptomycin 850 mg/ Sodium (Chloride) 100 mls @ 200 mls/hr IVPB DAILY@1400 DAVID PRN Reason: Protocol Last Admin: 10/21/17 17:11 Dose: Not Given Oxycodone HCl (Roxicodone -) 10 mg PO Q4H PRN PRN Reason: PAIN LEVEL 4-6 Last Admin: 10/21/17 21:49 Dose: 10 mg Pantoprazole Sodium (Protonix -) 40 mg PO DAILY [facility] Last Admin: 10/21/17 10:48 Dose: 40 mg Pregabalin (Lyrica -) 100 mg PO DAILY [facility] Last Admin: 10/21/17 10:48 Dose: 100 mg Quetiapine Fumarate (Seroquel -) 200 mg PO HS [facility] Last Admin: 10/21/17 21:43 Dose: 200 mg Sevelamer Carbonate (Renvela -) 800 mg PO TIDCM [facility] Last Admin: 10/21/17 18:10 Dose: 800 mg Last Vital Signs Temp Pulse Resp BP Pulse Ox 98.0 F 86 20 156/64 99 10/21/17 18:47 10/21/17 18:47 10/21/17 18:47 10/21/17 18:47 10/21/17 09:00 CBC, BMP 10/20/17 06:49 10/21/17 07:00 Plan - check labs in am - may need HD pending bloodwork - permacath has been removed - follow cultures - discussed with vascular and will be on standby for temp access - discussed with medical team - renal diet - cont lasix
[2017-10-22] MEDS: SEVELAMER CARBONATE 800 MG TAB (FP) PO SCH ×3 (08:30→17:47)
[2017-10-22 09:07] LABS: ALBUMIN 1.1 g/dl (3.4-5.0); ANION GAP 9 (8-16); BILIRUBIN,TOTAL 0.2 mg/dL (0.2-1.0); BLOOD UREA NITROGEN 50 mg/dL (7-18); CALCIUM 7.8 mg/dL (8.5-10.1); CHLORIDE 103 mmol/L (98-107); CO2 26 mmol/L (21-32); GLUCOSE,RANDOM 78 mg/dL (74-106); POTASSIUM 3.5 mmol/L (3.5-5.1); SGOT/AST 12 U/L (15-37); SGPT/ALT 8 U/L (12-78); SODIUM 138 mmol/L (136-145); TOT PROT 5.8 g/dl (6.4-8.2)
[2017-10-22 09:14] LABS: ALK PHOS 70 U/L (45-117)
[2017-10-22 09:21] LABS: CREATININE 10.7 mg/dL (0.55-1.02)
--- NOTE | 2017-10-22 09:29 | PN ---
Progress Note (short form) - Note Progress Note: CBC, BMP 10/20/17 06:49 10/22/17 07:59 Vital Signs Period Temp Pulse Resp BP Sys/Chan Pulse Ox Last 24 Hr 97.4 F-98.0 F 84-88 19-20 118-156/64-85 99 S1S2 RRR lungs cta abd chronic tenderness, c/o heartburn +BS ++ pedal edema awake, alert, orientedx3 denies dyspnea IMP sepsis-MRSA/VRE ESRD due to polycystic kidney ds. morbid obesity chronic pain syndrome PTSD GERD Plan due for iv daptomycin today HD as per renal-for now asymtomatic, k low, but getting more edematous femoral access for HD until blood cultures clear for HD consults greatly appreciated Problem List - Problems (1) Altered mental status Code(s): R41.82 - ALTERED MENTAL STATUS, UNSPECIFIED Qualifiers: Altered mental status type: unspecified Qualified Code(s): R41.82 - Altered mental status, unspecified (2) Back pain Code(s): M54.9 - DORSALGIA, UNSPECIFIED Qualifiers: Back pain location: low back pain Chronicity: chronic Back pain laterality: bilateral Sciatica presence: without sciatica Qualified Code(s) : M54.5 - Low back pain; G89.29 - Other chronic pain; G89.29 - Other chronic pain (3) Chronic pain disorder Code(s): G89.4 - CHRONIC PAIN SYNDROME (4) ESRD (end stage renal disease) Code(s): N18.6 - END STAGE RENAL DISEASE (5) HTN (hypertension) Code(s): I10 - ESSENTIAL (PRIMARY) HYPERTENSION Qualifiers: (6) GA on CPAP Code(s): G47.33 - OBSTRUCTIVE SLEEP APNEA (ADULT) (PEDIATRIC)
[2017-10-22] MEDS ORDERED: ZOLPIDEM TARTRATE 5 MG TABLET PO PRN (09:30)
[2017-10-22] MEDS: FUROSEMIDE 40 MG TABLET (FP) PO SCH (10:00)
[2017-10-22] MEDS: PREGABALIN 100 MG CAPSULE PO SCH (10:00)
[2017-10-22] MEDS: PANTOPRAZOLE 40 MG TABLET (FP) PO SCH ×2 (10:04→21:29)
--- NOTE | 2017-10-22 11:51 | PN ---
Progress Note (short form) - Note Progress Note: Vascular Surgery Blood cx are negative 72 hours. If cleared by ID , can place PC for HD tamie. This way we do not have to place a shiley. Will make pt NPO past midnight Wilmer mendoza DO
[2017-10-22] MEDS: ENOXAPARIN NA (PORCINE) 40 MG/0.4 ML DISP.SYRIN SQ SCH (12:28)
[2017-10-22] MEDS: oxyCODONE HCL 5 MG TABLET PO PRN ×2 (12:30→17:48)
--- NOTE | 2017-10-22 12:34 | PN ---
Progress Note (short form) - Note Progress Note: awake and alert no fevers afebrile Vital Signs Period Temp Pulse Resp BP Sys/Chan Pulse Ox Last 24 Hr 97.4 F-98.0 F 85-88 20-20 118-156/64-85 99 cor-rrr lungs clear abd soft,nt ext +edema CBC, BMP 10/20/17 06:49 10/22/17 07:59 Microbiology 10/19/17 10:15 Blood - Peripheral Venous Blood Culture - Preliminary NO GROWTH OBTAINED AFTER 72 HOURS, INCUBATION TO CONTINUE FOR 2 DAYS. 10/19/17 08:45 Blood - Peripheral Venous Blood Culture - Preliminary NO GROWTH OBTAINED AFTER 72 HOURS, INCUBATION TO CONTINUE FOR 2 DAYS. 10/17/17 15:40 Blood - Pre-Dialysis Blood Culture - Final S Aureus 10/17/17 15:10 Blood - Pre-Dialysis Blood Culture - Final S Aureus 10/16/17 18:18 Blood - Peripheral Venous Blood Culture - Final Vr Ec Faecalis S Aureus 10/16/17 18:18 Blood - Peripheral Venous Blood Culture - Final Vr Ec Faecalis S Aureus a/p bacteremia-polymicrobial bacteremia- MRSA/VRE daptomycin today okay for permacath today then daptomycin after each HD esrd/hd Problem List - Problems (1) Bacteremia Code(s): R78.81 - BACTEREMIA (2) ESRD (end stage renal disease) on dialysis Code(s): N18.6 - END STAGE RENAL DISEASE; Z99.2 - DEPENDENCE ON RENAL DIALYSIS (3) Obesity Code(s): E66.9 - OBESITY, UNSPECIFIED Qualifiers: Obesity type: due to excess calories Obesity classification: adult class 3 (BMI >= 40) Serious obesity comorbidity presence: with serious comorbidity
[2017-10-22] MEDS: SODIUM CHLORIDE IVPB SCH (15:03)
[2017-10-22] MEDS: DAPTOMYCIN IVPB SCH (15:03)
--- NOTE | 2017-10-22 17:17 | PN ---
Progress Note (short form) - Note Progress Note: 1. ESRD 2. fever 3. change in mental status/confusion 4. htn 5. dm 6. asthma 7. obesity 8. anxiety 9. sleep apnea 10. hx of acute psychosis/delusions 11. bacteremia Current Medications Albuterol Sulfate (Ventolin Hfa Inhaler -) 2 puff IH Q4H PRN PRN Reason: ASTHMA Atorvastatin Calcium (Lipitor -) 20 mg PO HS [facility] Last Admin: 10/21/17 21:43 Dose: 20 mg Enoxaparin Sodium (Lovenox -) 40 mg SQ DAILY [facility] Last Admin: 10/22/17 12:28 Dose: 40 mg Furosemide (Lasix -) 80 mg PO DAILY [facility] Last Admin: 10/22/17 10:00 Dose: 80 mg Daptomycin 850 mg/ Sodium (Chloride) 100 mls @ 200 mls/hr IVPB DAILY@1400 DAVID PRN Reason: Protocol Last Admin: 10/22/17 15:03 Dose: 200 mls/hr Oxycodone HCl (Roxicodone -) 10 mg PO Q4H PRN PRN Reason: PAIN LEVEL 4-6 Last Admin: 10/22/17 12:30 Dose: 10 mg Pantoprazole Sodium (Protonix -) 20 mg PO BID [facility] Last Admin: 10/22/17 10:04 Dose: 20 mg Pregabalin (Lyrica -) 100 mg PO DAILY [facility] Last Admin: 10/22/17 10:00 Dose: 100 mg Quetiapine Fumarate (Seroquel -) 200 mg PO HS [facility] Last Admin: 10/21/17 21:43 Dose: 200 mg Sevelamer Carbonate (Renvela -) 800 mg PO TIDCM [facility] Last Admin: 10/22/17 12:29 Dose: 800 mg Zolpidem Tartrate (Ambien -) 5 mg PO HS PRN PRN Reason: INSOMNIA Last Vital Signs Temp Pulse Resp BP Pulse Ox 97.9 F 86 18 121/71 97 10/22/17 14:42 10/22/17 14:42 10/22/17 14:42 10/22/17 14:42 10/22/17 09:00 lungs clear heart reg abd soft nontender CBC, BMP 10/20/17 06:49 10/21/17 07:00 IMP- s/p bacteremia blood c/s neg esrd/pkd morbid obesity for permacath placement ID recomends daptomycin q HD
[2017-10-22] MEDS: QUEtiapine FUMARATE 200 MG TABLET PO SCH (21:29)
[2017-10-22] MEDS: ATORVASTATIN CA 20 MG TABLET (FP) PO SCH (21:29)
[2017-10-23 07:56] LABS: BASO % 0.4 % (0-2.0); EOS % 1.3 % (0-4.5); HEMATOCRIT 26.8 % (32.4-45.2); HEMOGLOBIN 8.9 GM/dL (10.7-15.3); LYMPH % 26.4 % (8-40); MCH 32.8 pg (25.7-33.7); MCHC 33.1 g/dl (32.0-36.0); MEAN CELL VOLUME 98.8 fl (80-96); MEAN PLT VOLUME 8.9 fl (7.5-11.1); MONO % 5.7 % (3.8-10.2); NEUT % 66.2 % (42.8-82.8); PLATELET COUNT 168 K/MM3 (134-434); RBC 2.71 M/mm3 (3.60-5.2); RDW 16.4 % (11.6-15.6)
[2017-10-23 08:30] LABS: ALBUMIN 1.2 g/dl (3.4-5.0); ALK PHOS 77 U/L (45-117); ANION GAP 9 (8-16); BILIRUBIN,TOTAL 0.2 mg/dL (0.2-1.0); BLOOD UREA NITROGEN 54 mg/dL (7-18); CHLORIDE 103 mmol/L (98-107); CO2 24 mmol/L (21-32); GLUCOSE,RANDOM 82 mg/dL (74-106); POTASSIUM 3.9 mmol/L (3.5-5.1); SGOT/AST 17 U/L (15-37); SGPT/ALT 11 U/L (12-78); SODIUM 136 mmol/L (136-145); TOT PROT 6.4 g/dl (6.4-8.2)
--- NOTE | 2017-10-23 08:43 | PN ---
Progress Note (short form) - Note Progress Note: CBC, BMP 10/23/17 07:24 Vital Signs Period Temp Pulse Resp BP Sys/Chan Pulse Ox Last 24 Hr 97.9 F-98.2 F 78-86 18-20 118-145/61-84 97-97 S1S2 RRR lungs cta abd chronic tenderness, c/o heartburn +BS ++ pedal edema awake, alert, orientedx3 denies dyspnea IMP sepsis-MRSA/VRE ESRD due to polycystic kidney ds. morbid obesity chronic pain syndrome PTSD GERD Plan last two bcx are negative cleared for perma cath placement today continue iv daptomycin HD after permacath placement consults appreciated Problem List - Problems (1) Altered mental status Code(s): R41.82 - ALTERED MENTAL STATUS, UNSPECIFIED Qualifiers: Altered mental status type: unspecified Qualified Code(s): R41.82 - Altered mental status, unspecified (2) Back pain Code(s): M54.9 - DORSALGIA, UNSPECIFIED Qualifiers: Back pain location: low back pain Chronicity: chronic Back pain laterality: bilateral Sciatica presence: without sciatica Qualified Code(s) : M54.5 - Low back pain; G89.29 - Other chronic pain; G89.29 - Other chronic pain (3) Chronic pain disorder Code(s): G89.4 - CHRONIC PAIN SYNDROME (4) ESRD (end stage renal disease) Code(s): N18.6 - END STAGE RENAL DISEASE (5) HTN (hypertension) Code(s): I10 - ESSENTIAL (PRIMARY) HYPERTENSION Qualifiers: (6) GA on CPAP Code(s): G47.33 - OBSTRUCTIVE SLEEP APNEA (ADULT) (PEDIATRIC)
--- NOTE | 2017-10-23 09:00 | PN ---
Progress Note, Physician Chief Complaint: ID Getting Daptomycin through peripheral IV Afebrile - Current Medication List Current Medications: Active Medications Albuterol Sulfate (Ventolin Hfa Inhaler -) 2 puff IH Q4H PRN PRN Reason: ASTHMA Atorvastatin Calcium (Lipitor -) 20 mg PO HS [facility] Last Admin: 10/22/17 21:29 Dose: 20 mg Enoxaparin Sodium (Lovenox -) 40 mg SQ DAILY [facility] Last Admin: 10/22/17 12:28 Dose: 40 mg Furosemide (Lasix -) 80 mg PO DAILY [facility] Last Admin: 10/22/17 10:00 Dose: 80 mg Daptomycin 850 mg/ Sodium (Chloride) 100 mls @ 200 mls/hr IVPB DAILY@1400 DAVID PRN Reason: Protocol Last Admin: 10/22/17 15:03 Dose: 200 mls/hr Oxycodone HCl (Roxicodone -) 10 mg PO Q4H PRN PRN Reason: PAIN LEVEL 4-6 Last Admin: 10/22/17 17:48 Dose: 10 mg Pantoprazole Sodium (Protonix -) 20 mg PO BID [facility] Last Admin: 10/22/17 21:29 Dose: 20 mg Pregabalin (Lyrica -) 100 mg PO DAILY [facility] Last Admin: 10/22/17 10:00 Dose: 100 mg Quetiapine Fumarate (Seroquel -) 200 mg PO HS [facility] Last Admin: 10/22/17 21:29 Dose: 200 mg Sevelamer Carbonate (Renvela -) 800 mg PO TIDCM [facility] Last Admin: 10/22/17 17:47 Dose: 800 mg Zolpidem Tartrate (Ambien -) 5 mg PO HS PRN PRN Reason: INSOMNIA - Objective Vital Signs: Vital Signs Temperature 98.1 F 10/23/17 06:00 Pulse Rate 78 10/23/17 06:00 Respiratory Rate 20 10/23/17 06:00 Blood Pressure 118/61 10/23/17 06:00 O2 Sat by Pulse Oximetry (%) 97 10/22/17 21:00 Neck: Yes: WNL, Supple Cardiovascular: Yes: S1, S2 Respiratory: Yes: WNL, Regular, CTA Bilaterally Gastrointestinal: Yes: WNL, Normal Bowel Sounds, Soft. No: Tenderness Labs: CBC, BMP 10/23/17 07:24 INR, PTT INR 1.32 (0.82-1.09) H 10/16/17 18:18 Assessment/Plan Microbiology 10/17/17 15:40 Blood - Pre-Dialysis Blood Culture - Final Mr S Aureus 10/17/17 15:10 Blood - Pre-Dialysis Blood Culture - Final Mr S Aureus 10/16/17 18:18 Blood - Peripheral Venous Blood Culture - Final Vr Ec Faecalis Mr S Aureus 10/16/17 18:18 Blood - Peripheral Venous Blood Culture - Final Vr Ec Faecalis Mr S Aureus Laboratory Tests 10/17/17 10/23/17 15:10 07:24 WBC 4.0 Hgb 8.9 L Hct 26.8 L RDW 16.4 H C-Reactive Protein 24.7 H Assessment Polymicrobial bacteremia transient catheter related Plan Treat 3 weeks from last negative blood culture and repeat the CRP Ivelisse VALE
[2017-10-23 09:22] LABS: CREATININE 11.5 mg/dL (0.55-1.02)
[2017-10-23] MEDS ORDERED: LIDOCAINE HCL 1%, 10 MG/ML (20ML VIAL) ONE (10:07)
[2017-10-23] MEDS ORDERED: HEPARIN NA (PORCINE) 5,000 UNITS/ML 1ML VIAL ONE (10:07)
[2017-10-23] MEDS: FUROSEMIDE 40 MG TABLET (FP) PO SCH (13:11)
[2017-10-23] MEDS: SEVELAMER CARBONATE 800 MG TAB (FP) PO SCH ×2 (13:11→18:12)
[2017-10-23] MEDS: ENOXAPARIN NA (PORCINE) 40 MG/0.4 ML DISP.SYRIN SQ SCH (13:12)
[2017-10-23] MEDS: PANTOPRAZOLE 40 MG TABLET (FP) PO SCH (13:12)
[2017-10-23] MEDS: PREGABALIN 100 MG CAPSULE PO SCH (13:12)
[2017-10-23] MEDS ORDERED: ACETAMINOPHEN 325 MG TABLET (FP) ONE (14:19)
[2017-10-23] MEDS: oxyCODONE HCL 5 MG TABLET PO PRN (14:22)
[2017-10-23] MEDS ORDERED: SODIUM CHLORIDE 250 ML IV PRN ×2 (16:21→21:08)
[2017-10-23] MEDS ORDERED: EPOETIN ALFA 2,000 UNIT/1 ML VIAL IVPUSH ONE ×2 (16:21→21:15)
--- NOTE | 2017-10-23 16:21 | PN ---
Progress Note, Physician History of Present Illness: Pt seen and examined at bedside. She is going for a permacath today. She denies shortness of breath. - Current Medication List Current Medications: Active Medications Albuterol Sulfate (Ventolin Hfa Inhaler -) 2 puff IH Q4H PRN PRN Reason: ASTHMA Atorvastatin Calcium (Lipitor -) 20 mg PO HS [facility] Last Admin: 10/22/17 21:29 Dose: 20 mg Enoxaparin Sodium (Lovenox -) 40 mg SQ DAILY [facility] Last Admin: 10/23/17 13:12 Dose: Not Given Furosemide (Lasix -) 80 mg PO DAILY [facility] Last Admin: 10/23/17 13:11 Dose: Not Given Daptomycin 850 mg/ Sodium (Chloride) 100 mls @ 200 mls/hr IVPB DAILY@1400 [facility]ID PRN Reason: Protocol Last Admin: 10/22/17 15:03 Dose: 200 mls/hr Oxycodone HCl (Roxicodone -) 10 mg PO Q4H PRN PRN Reason: PAIN LEVEL 4-6 Last Admin: 10/23/17 14:22 Dose: 10 mg Pantoprazole Sodium (Protonix -) 20 mg PO BID [facility] Last Admin: 10/23/17 13:12 Dose: Not Given Pregabalin (Lyrica -) 100 mg PO DAILY [facility] Last Admin: 10/23/17 13:12 Dose: Not Given Quetiapine Fumarate (Seroquel -) 200 mg PO HS [facility] Last Admin: 10/22/17 21:29 Dose: 200 mg Sevelamer Carbonate (Renvela -) 800 mg PO TIDCM [facility] Last Admin: 10/23/17 13:11 Dose: Not Given Zolpidem Tartrate (Ambien -) 5 mg PO HS PRN PRN Reason: INSOMNIA - Objective Vital Signs: Vital Signs Temperature 97.9 F 10/23/17 15:14 Pulse Rate 82 10/23/17 15:14 Respiratory Rate 20 10/23/17 15:14 Blood Pressure 123/71 10/23/17 15:14 O2 Sat by Pulse Oximetry (%) 97 10/22/17 21:00 Constitutional: Yes: Calm Eyes: Yes: Conjunctiva Clear HENT: Yes: Atraumatic Neck: Yes: Supple Cardiovascular: Yes: S1, S2 Respiratory: Yes: CTA Bilaterally Gastrointestinal: Yes: Soft, Abdomen, Obese Genitourinary: Yes: WNL Musculoskeletal: Yes: WNL Edema: LLE: Trace, RLE: Trace Integumentary: Yes: Tattoos Neurological: Yes: Oriented Psychiatric: Yes: Oriented Labs: CBC, BMP 10/23/17 07:24 10/23/17 07:24 INR, PTT INR 1.32 (0.82-1.09) H 10/16/17 18:18 Problem List - Problems (1) Diabetes Code(s): E11.9 - TYPE 2 DIABETES MELLITUS WITHOUT COMPLICATIONS (2) ESRD (end stage renal disease) on dialysis Code(s): N18.6 - END STAGE RENAL DISEASE; Z99.2 - DEPENDENCE ON RENAL DIALYSIS (3) HTN (hypertension) Code(s): I10 - ESSENTIAL (PRIMARY) HYPERTENSION Qualifiers: Assessment/Plan Current Medications Generic Name Dose Route Start Last Admin Trade Name Freq PRN Reason Stop Dose Admin Albuterol Sulfate 2 puff 10/16/17 20:51 Ventolin Hfa Inhaler - IH Q4H PRN ASTHMA Atorvastatin Calcium 20 mg 10/16/17 22:00 10/22/17 21:29 Lipitor - PO 20 mg HS [facility] Administration Enoxaparin Sodium 40 mg 10/17/17 10:00 10/23/17 13:12 Lovenox - SQ Not Given DAILY [facility] Furosemide 80 mg 10/17/17 10:00 10/23/17 13:11 Lasix - PO Not Given DAILY [facility] Daptomycin 850 mg/ Sodium 100 mls @ 200 mls/hr 10/20/17 14:00 10/22/17 15:03 Chloride IVPB 200 mls/hr DAILY@1400 DAVID Administration Protocol Oxycodone HCl 10 mg 10/17/17 09:11 10/23/17 14:22 Roxicodone - PO 10 mg Q4H PRN Administration PAIN LEVEL 4-6 Pantoprazole Sodium 20 mg 10/22/17 10:00 10/23/17 13:12 Protonix - PO Not Given BID [facility]ID Pregabalin 100 mg 10/17/17 10:00 10/23/17 13:12 Lyrica - PO Not Given DAILY [facility] Quetiapine Fumarate 200 mg 10/16/17 22:00 10/22/17 21:29 Seroquel - PO 200 mg HS [facility] Administration Sevelamer Carbonate 800 mg 10/17/17 08:00 10/23/17 13:11 Renvela - PO Not Given TIDCM [facility] Zolpidem Tartrate 5 mg 10/22/17 09:30 Ambien - PO HS PRN INSOMNIA Impression 1. ESRD 2. fever 3. change in mental status/confusion 4. htn 5. dm 6. asthma 7. obesity 8. anxiety 9. sleep apnea 10. hx of acute psychosis/delusions 11. bacteremia Plan - pt going for permacath today - will arrange for HD today - reviewed laba - discussed with vascular - renal diet - cont lasix Dr Romano
[2017-10-23] MEDS ORDERED: MIDAZOLAM HCL 2 MG/2 ML SINGLE DOSE VIAL ONE ×2 (18:33)
[2017-10-23] MEDS ORDERED: PROPOFOL 20 ML ONE (18:33)
[2017-10-23] MEDS ORDERED: LIDOCAINE HCL 1%, 10 MG/ML (20ML VIAL) INF ONE (18:44)
--- NOTE | 2017-10-23 19:04 | OP ---
Operative Note - Note: Operative Date: 10/23/17 Pre-Operative Diagnosis: ESRD Operation: Insertion of permacath Post-Operative Diagnosis: Same as Pre-op Surgeon: Wilmer Crabtree Anesthesia: Fractional Estimated Blood Loss (mls): 20 Operative Report Dictated: Yes
[2017-10-23] MEDS ORDERED: ONDANSETRON 4 MG/2 ML VIAL IVPUSH PRN (19:13)
[2017-10-23] MEDS ORDERED: ALBUTEROL SO4 18 GM HFA INHALER IH PRN (19:23)
[2017-10-23] MEDS ORDERED: PIPERACIL/TAZOB 3.375 GM 3.375 GM/50 ML PREMIX IVPB ONE (19:23)
[2017-10-24] MEDS: ATORVASTATIN CA 20 MG TABLET (FP) PO SCH ×2 (00:33→21:16)
[2017-10-24] MEDS: PANTOPRAZOLE 40 MG TABLET (FP) PO SCH ×3 (00:34→21:16)
[2017-10-24] MEDS: QUEtiapine FUMARATE 200 MG TABLET PO SCH ×2 (00:34→21:16)
[2017-10-24] MEDS: oxyCODONE HCL 5 MG TABLET PO PRN ×3 (00:35→21:15)
[2017-10-24] MEDS: SEVELAMER CARBONATE 800 MG TAB (FP) PO SCH ×3 (08:53→17:37)
[2017-10-24] MEDS: SODIUM CHLORIDE IVPB SCH ×2 (09:24→14:06)
[2017-10-24] MEDS: DAPTOMYCIN IVPB SCH ×2 (09:24→14:06)
[2017-10-24] MEDS: PREGABALIN 100 MG CAPSULE PO SCH (10:19)
[2017-10-24] MEDS: ENOXAPARIN NA (PORCINE) 40 MG/0.4 ML DISP.SYRIN SQ SCH (10:20)
[2017-10-24] MEDS: FUROSEMIDE 40 MG TABLET (FP) PO SCH (10:20)
--- NOTE | 2017-10-24 15:43 | PN ---
Progress Note, Physician History of Present Illness: Pt seen and examined at bedside. She is awake and alert. She is asking for potatoes. - Current Medication List Current Medications: Active Medications Albuterol Sulfate (Ventolin Hfa Inhaler -) 2 puff IH Q4H PRN PRN Reason: ASTHMA Atorvastatin Calcium (Lipitor -) 20 mg PO HS [facility] Last Admin: 10/24/17 00:33 Dose: 20 mg Enoxaparin Sodium (Lovenox -) 40 mg SQ DAILY [facility] Last Admin: 10/24/17 10:20 Dose: 40 mg Furosemide (Lasix -) 80 mg PO DAILY [facility] Last Admin: 10/24/17 10:20 Dose: 80 mg Sodium Chloride (Normal Saline -) 250 mls @ 3,000 mls/hr IV PRN PRN PRN Reason: Hypotension during Dialysis Stop: 10/24/17 21:07 Daptomycin 850 mg/ Sodium (Chloride) 100 mls @ 200 mls/hr IVPB DAILY@1400 DAVID PRN Reason: Protocol Last Admin: 10/24/17 14:06 Dose: 200 mls/hr Ondansetron HCl (Zofran Injection) 4 mg IVPUSH Q6H PRN PRN Reason: NAUSEA AND/OR VOMITING Oxycodone HCl (Roxicodone -) 10 mg PO Q4H PRN PRN Reason: PAIN LEVEL 4-6 Last Admin: 10/24/17 14:09 Dose: 10 mg Pantoprazole Sodium (Protonix -) 20 mg PO BID [facility] Last Admin: 10/24/17 10:20 Dose: 20 mg Pregabalin (Lyrica -) 100 mg PO DAILY [facility] Last Admin: 10/24/17 10:19 Dose: 100 mg Quetiapine Fumarate (Seroquel -) 200 mg PO HS [facility] Last Admin: 10/24/17 00:34 Dose: 200 mg Sevelamer Carbonate (Renvela -) 800 mg PO TIDCM [facility] Last Admin: 10/24/17 12:22 Dose: 800 mg Zolpidem Tartrate (Ambien -) 5 mg PO HS PRN PRN Reason: INSOMNIA - Objective Vital Signs: Vital Signs Temperature 98.2 F 10/24/17 15:35 Pulse Rate 89 10/24/17 15:35 Respiratory Rate 24 10/24/17 15:35 Blood Pressure 112/60 10/24/17 15:35 O2 Sat by Pulse Oximetry (%) 100 10/24/17 09:00 Constitutional: Yes: Calm Eyes: Yes: Conjunctiva Clear HENT: Yes: Atraumatic Cardiovascular: Yes: S1, S2 Respiratory: Yes: CTA Bilaterally Gastrointestinal: Yes: Soft, Abdomen, Obese Genitourinary: Yes: WNL Musculoskeletal: Yes: WNL Edema: No Integumentary: Yes: Tattoos Neurological: Yes: Oriented Labs: CBC, BMP 10/23/17 07:24 10/23/17 07:24 INR, PTT INR 1.32 (0.82-1.09) H 10/16/17 18:18 Problem List - Problems (1) Diabetes Code(s): E11.9 - TYPE 2 DIABETES MELLITUS WITHOUT COMPLICATIONS (2) ESRD (end stage renal disease) on dialysis Code(s): N18.6 - END STAGE RENAL DISEASE; Z99.2 - DEPENDENCE ON RENAL DIALYSIS (3) HTN (hypertension) Code(s): I10 - ESSENTIAL (PRIMARY) HYPERTENSION Qualifiers: Assessment/Plan Current Medications Generic Name Dose Route Start Last Admin Trade Name Freq PRN Reason Stop Dose Admin Albuterol Sulfate 2 puff 10/23/17 19:23 Ventolin Hfa Inhaler - IH Q4H PRN ASTHMA Atorvastatin Calcium 20 mg 10/23/17 22:00 10/24/17 00:33 Lipitor - PO 20 mg HS [facility] Administration Enoxaparin Sodium 40 mg 10/24/17 10:00 10/24/17 10:20 Lovenox - SQ 40 mg DAILY [facility] Administration Furosemide 80 mg 10/24/17 10:00 10/24/17 10:20 Lasix - PO 80 mg DAILY [facility] Administration Sodium Chloride 250 mls @ 3,000 mls/hr 10/23/17 21:08 Normal Saline - IV 10/24/17 21:07 PRN PRN Hypotension during Dialysis Daptomycin 850 mg/ Sodium 100 mls @ 200 mls/hr 10/24/17 14:00 10/24/17 14:06 Chloride IVPB 200 mls/hr DAILY@1400 DAVID Administration Protocol Ondansetron HCl 4 mg 10/23/17 19:13 Zofran Injection IVPUSH Q6H PRN NAUSEA AND/OR VOMITING Oxycodone HCl 10 mg 10/23/17 19:23 10/24/17 14:09 Roxicodone - PO 10 mg Q4H PRN Administration PAIN LEVEL 4-6 Pantoprazole Sodium 20 mg 10/23/17 22:00 10/24/17 10:20 Protonix - PO 20 mg BID [facility] Administration Pregabalin 100 mg 10/24/17 10:00 10/24/17 10:19 Lyrica - PO 100 mg DAILY [facility] Administration Quetiapine Fumarate 200 mg 10/23/17 22:00 10/24/17 00:34 Seroquel - PO 200 mg HS [facility] Administration Sevelamer Carbonate 800 mg 10/24/17 08:00 10/24/17 12:22 Renvela - PO 800 mg TIDCM [facility] Administration Zolpidem Tartrate 5 mg 10/23/17 22:00 Ambien - PO HS PRN INSOMNIA Impression 1. ESRD 2. fever 3. change in mental status/confusion 4. htn 5. dm 6. asthma 7. obesity 8. anxiety 9. sleep apnea 10. hx of acute psychosis/delusions 11. bacteremia Plan - pt tolerated HD yesterday - will write for HD tomorrow - pt can go back to her outpt HD schedule on Monday - renal diet - cont lasix - will follow - discussed plan with pt - cultures from 10/19 are negative, final report Dr Romano
--- NOTE | 2017-10-24 18:36 | PN ---
Progress Note (short form) - Note Progress Note: CBC, BMP 10/23/17 07:24 18 07:24 Vital Signs Period Temp Pulse Resp BP Sys/Chan Pulse Ox Last 24 Hr 98.0 F-98.8 F 75-96 14-24 84-149/53-93 98-100 S1S2 RRR lungs cta abd chronic tenderness, c/o heartburn +BS + pedal edema awake, alert, orientedx3 denies dyspnea IMP sepsis-MRSA/VRE ESRD due to polycystic kidney ds. morbid obesity chronic pain syndrome PTSD GERD Plan last two bcx are negative s/p permacath yesterday HD tomorrow dc planning with iv daptomycin after each HD tomorrow Problem List - Problems (1) Altered mental status Code(s): R41.82 - ALTERED MENTAL STATUS, UNSPECIFIED Qualifiers: Altered mental status type: unspecified Qualified Code(s): R41.82 - Altered mental status, unspecified (2) Back pain Code(s): M54.9 - DORSALGIA, UNSPECIFIED Qualifiers: Back pain location: low back pain Chronicity: chronic Back pain laterality: bilateral Sciatica presence: without sciatica Qualified Code(s) : M54.5 - Low back pain; G89.29 - Other chronic pain; G89.29 - Other chronic pain (3) Chronic pain disorder Code(s): G89.4 - CHRONIC PAIN SYNDROME (4) ESRD (end stage renal disease) Code(s): N18.6 - END STAGE RENAL DISEASE (5) HTN (hypertension) Code(s): I10 - ESSENTIAL (PRIMARY) HYPERTENSION Qualifiers: (6) GA on CPAP Code(s): G47.33 - OBSTRUCTIVE SLEEP APNEA (ADULT) (PEDIATRIC)
[2017-10-24] MEDS: ZOLPIDEM TARTRATE 5 MG TABLET PO PRN (21:16)
[2017-10-25] MEDS: SEVELAMER CARBONATE 800 MG TAB (FP) PO SCH ×3 (08:28→17:57)
--- NOTE | 2017-10-25 09:16 | PN ---
Progress Note (short form) - Note Progress Note: Vital Signs Period Temp Pulse Resp BP Sys/Chan Pulse Ox Last 24 Hr 98.0 F-98.2 F 78-90 20-24 112-155/59-100 98 S1S2 RRR lungs cta abd chronic tenderness, c/o heartburn +BS + pedal edema awake, alert, orientedx3 denies dyspnea IMP sepsis-MRSA/VRE ESRD due to polycystic kidney ds. morbid obesity chronic pain syndrome PTSD GERD Plan last two bcx are negative s/p permacath HD today spoke to HD center at [address] they are unable to take pt back on iv dapto will arrange STR for two weeks to finish abx course Problem List - Problems (1) Altered mental status Code(s): R41.82 - ALTERED MENTAL STATUS, UNSPECIFIED Qualifiers: Altered mental status type: unspecified Qualified Code(s): R41.82 - Altered mental status, unspecified (2) Back pain Code(s): M54.9 - DORSALGIA, UNSPECIFIED Qualifiers: Back pain location: low back pain Chronicity: chronic Back pain laterality: bilateral Sciatica presence: without sciatica Qualified Code(s) : M54.5 - Low back pain; G89.29 - Other chronic pain; G89.29 - Other chronic pain (3) Chronic pain disorder Code(s): G89.4 - CHRONIC PAIN SYNDROME (4) ESRD (end stage renal disease) Code(s): N18.6 - END STAGE RENAL DISEASE (5) HTN (hypertension) Code(s): I10 - ESSENTIAL (PRIMARY) HYPERTENSION Qualifiers: (6) GA on CPAP Code(s): G47.33 - OBSTRUCTIVE SLEEP APNEA (ADULT) (PEDIATRIC)
[2017-10-25] MEDS: FUROSEMIDE 40 MG TABLET (FP) PO SCH (11:44)
[2017-10-25] MEDS: PREGABALIN 100 MG CAPSULE PO SCH (11:44)
[2017-10-25] MEDS: PANTOPRAZOLE 40 MG TABLET (FP) PO SCH ×2 (11:45→22:10)
[2017-10-25] MEDS: ENOXAPARIN NA (PORCINE) 40 MG/0.4 ML DISP.SYRIN SQ SCH (12:24)
--- NOTE | 2017-10-25 13:37 | PN ---
Progress Note, Physician History of Present Illness: Pt seen and examined at bedside. She is scheduled for HD today. - Current Medication List Current Medications: Active Medications Albuterol Sulfate (Ventolin Hfa Inhaler -) 2 puff IH Q4H PRN PRN Reason: ASTHMA Atorvastatin Calcium (Lipitor -) 20 mg PO HS [facility] Last Admin: 10/24/17 21:16 Dose: 20 mg Enoxaparin Sodium (Lovenox -) 40 mg SQ DAILY [facility] Last Admin: 10/25/17 12:24 Dose: 40 mg Epoetin Jcarlos (Epogen -) 4,000 unit IVPUSH ONCE ONE Stop: 10/25/17 15:44 Furosemide (Lasix -) 80 mg PO DAILY [facility] Last Admin: 10/25/17 11:44 Dose: Not Given Heparin Sodium (Porcine) (Heparin -) 500 unit IVPUSH ONCE ONE Stop: 10/25/17 15:44 Daptomycin 850 mg/ Sodium (Chloride) 100 mls @ 200 mls/hr IVPB DAILY@1400 DAVID PRN Reason: Protocol Last Admin: 10/24/17 14:06 Dose: 200 mls/hr Sodium Chloride (Normal Saline -) 250 mls @ 3,000 mls/hr IV PRN PRN PRN Reason: Hypotension during Dialysis Stop: 10/25/17 15:43 Ondansetron HCl (Zofran Injection) 4 mg IVPUSH Q6H PRN PRN Reason: NAUSEA AND/OR VOMITING Oxycodone HCl (Roxicodone -) 10 mg PO Q4H PRN PRN Reason: PAIN LEVEL 4-6 Last Admin: 10/24/17 21:15 Dose: 10 mg Pantoprazole Sodium (Protonix -) 20 mg PO BID [facility] Last Admin: 10/25/17 11:45 Dose: Not Given Pregabalin (Lyrica -) 100 mg PO DAILY [facility] Last Admin: 10/25/17 11:44 Dose: Not Given Quetiapine Fumarate (Seroquel -) 200 mg PO HS [facility] Last Admin: 10/24/17 21:16 Dose: 200 mg Sevelamer Carbonate (Renvela -) 800 mg PO TIDCM [facility] Last Admin: 10/25/17 12:24 Dose: 800 mg Zolpidem Tartrate (Ambien -) 5 mg PO HS PRN PRN Reason: INSOMNIA Last Admin: 10/24/17 21:16 Dose: 5 mg - Objective Vital Signs: Vital Signs Temperature 97.9 F 10/25/17 11:45 Pulse Rate 98 H 10/25/17 11:45 Respiratory Rate 20 10/25/17 11:45 Blood Pressure 138/87 10/25/17 11:45 O2 Sat by Pulse Oximetry (%) 98 10/24/17 21:00 Constitutional: Yes: Calm Eyes: Yes: Conjunctiva Clear HENT: Yes: Atraumatic Neck: Yes: Supple Cardiovascular: Yes: S1, S2 Respiratory: Yes: CTA Bilaterally Gastrointestinal: Yes: Soft Genitourinary: Yes: WNL Musculoskeletal: Yes: WNL Edema: Yes Edema: LLE: Trace, RLE: Trace Integumentary: Yes: Tattoos Neurological: Yes: Oriented Psychiatric: Yes: Oriented Labs: CBC, BMP 10/23/17 07:24 10/23/17 07:24 INR, PTT INR 1.32 (0.82-1.09) H 10/16/17 18:18 Problem List - Problems (1) Diabetes Code(s): E11.9 - TYPE 2 DIABETES MELLITUS WITHOUT COMPLICATIONS (2) ESRD (end stage renal disease) on dialysis Code(s): N18.6 - END STAGE RENAL DISEASE; Z99.2 - DEPENDENCE ON RENAL DIALYSIS (3) HTN (hypertension) Code(s): I10 - ESSENTIAL (PRIMARY) HYPERTENSION Qualifiers: Assessment/Plan Current Medications Generic Name Dose Route Start Last Admin Trade Name Freq PRN Reason Stop Dose Admin Albuterol Sulfate 2 puff 10/23/17 19:23 Ventolin Hfa Inhaler - IH Q4H PRN ASTHMA Atorvastatin Calcium 20 mg 10/23/17 22:00 10/24/17 21:16 Lipitor - PO 20 mg HS DAVID Administration Enoxaparin Sodium 40 mg 10/24/17 10:00 10/25/17 12:24 Lovenox - SQ 40 mg DAILY [facility]ID Administration Epoetin Jcarlos 4,000 unit 10/25/17 15:43 Epogen - IVPUSH 10/25/17 15:44 ONCE ONE Furosemide 80 mg 10/24/17 10:00 10/25/17 11:44 Lasix - PO Not Given DAILY DAVID Heparin Sodium (Porcine) 500 unit 10/25/17 15:43 Heparin - IVPUSH 10/25/17 15:44 ONCE ONE Daptomycin 850 mg/ Sodium 100 mls @ 200 mls/hr 10/24/17 14:00 10/24/17 14:06 Chloride IVPB 200 mls/hr DAILY@1400 DAVID Administration Protocol Sodium Chloride 250 mls @ 3,000 mls/hr 10/24/17 15:43 Normal Saline - IV 10/25/17 15:43 PRN PRN Hypotension during Dialysis Ondansetron HCl 4 mg 10/23/17 19:13 Zofran Injection IVPUSH Q6H PRN NAUSEA AND/OR VOMITING Oxycodone HCl 10 mg 10/23/17 19:23 10/24/17 21:15 Roxicodone - PO 10 mg Q4H PRN Administration PAIN LEVEL 4-6 Pantoprazole Sodium 20 mg 10/23/17 22:00 10/25/17 11:45 Protonix - PO Not Given BID DAVID Pregabalin 100 mg 10/24/17 10:00 10/25/17 11:44 Lyrica - PO Not Given DAILY [facility] Quetiapine Fumarate 200 mg 10/23/17 22:00 10/24/17 21:16 Seroquel - PO 200 mg HS [facility]ID Administration Sevelamer Carbonate 800 mg 10/24/17 08:00 10/25/17 12:24 Renvela - PO 800 mg TIDCM [facility]ID Administration Zolpidem Tartrate 5 mg 10/23/17 22:00 10/24/17 21:16 Ambien - PO 5 mg HS PRN Administration INSOMNIA Impression 1. ESRD 2. fever 3. change in mental status/confusion 4. htn 5. dm 6. asthma 7. obesity 8. anxiety 9. sleep apnea 10. hx of acute psychosis/delusions 11. bacteremia Plan - HD today - abx per ID - pt can go back to her outpt HD schedule on Monday - renal diet - cont lasix - will follow - discussed plan with pt Dr Romano
[2017-10-25] MEDS: SODIUM CHLORIDE IVPB SCH ×2 (14:00→22:09)
[2017-10-25] MEDS: DAPTOMYCIN IVPB SCH ×2 (14:00→22:09)
[2017-10-25] MEDS ORDERED: SODIUM CHLORIDE 250 ML IV PRN (17:48)
[2017-10-25] MEDS ORDERED: HEPARIN NA (PORCINE) 5,000 UNITS/ML 1ML VIAL IVPUSH ONE (18:00)
[2017-10-25] MEDS ORDERED: EPOETIN ALFA 2,000 UNIT/1 ML VIAL IVPUSH ONE (18:00)
[2017-10-25] MEDS: oxyCODONE HCL 5 MG TABLET PO PRN (18:01)
[2017-10-25 19:45] LABS: HEMATOCRIT 24.5 % (32.4-45.2); HEMOGLOBIN 8.2 GM/dL (10.7-15.3); MCH 32.8 pg (25.7-33.7); MCHC 33.4 g/dl (32.0-36.0); MEAN CELL VOLUME 98.1 fl (80-96); MEAN PLT VOLUME 8.9 fl (7.5-11.1); PLATELET COUNT 138 K/MM3 (134-434); RDW 16.3 % (11.6-15.6); WHITE BLOOD COUNT 3.5 K/mm3 (4.0-10.0)
[2017-10-25 20:20] LABS: ANION GAP 4 (8-16); BLOOD UREA NITROGEN 35 mg/dL (7-18); CALCIUM 7.8 mg/dL (8.5-10.1); CHLORIDE 105 mmol/L (98-107); CO2 31 mmol/L (21-32); GLUCOSE,RANDOM 82 mg/dL (74-106); POTASSIUM 4.3 mmol/L (3.5-5.1); SODIUM 140 mmol/L (136-145)
[2017-10-25 20:25] LABS: CREATININE 7.2 mg/dL (0.55-1.02)
[2017-10-25] MEDS: QUEtiapine FUMARATE 200 MG TABLET PO SCH (22:11)
[2017-10-25] MEDS: ATORVASTATIN CA 20 MG TABLET (FP) PO SCH (22:11)
[2017-10-25] MEDS: ZOLPIDEM TARTRATE 5 MG TABLET PO PRN (22:11)
--- NOTE | 2017-10-26 10:13 | OP ---
DATE OF OPERATION: 10/23/2017 PREOPERATIVE DIAGNOSIS: End-stage renal disease. POSTOPERATIVE DIAGNOSIS: End-stage renal disease. PROCEDURE: Insertion of PermCath. SURGEON: Wilmer Jackson DO ANESTHESIA: Fractional. BLOOD LOSS: 10 mL INDICATION FOR PROCEDURE: The patient is a 48-year-old female who comes in with an infected PermCath that was removed a couple of days ago and she was then left catheter free and her blood cultures are now negative and needs a new PermCath insertion. Patient was consented for the procedure, understanding all risks, benefits, and alternatives, was then taken to the operating room. DESCRIPTION OF PROCEDURE: Once in the operating room, she was laid on the operating table in supine manner, and the area of the left neck and chest were prepped and draped in a sterile surgical manner. Then, under ultrasound guidance, we were able to visualize the left internal jugular vein, and 10 mL of lidocaine 1% was injected there. We then went ahead and took our Micropuncture needle and under ultrasound guidance, punctured the left internal jugular vein. Micropuncture wire was inserted, and micropuncture sheath was inserted. A 0.035 floppy guidewire was inserted under fluoroscopy. We then went ahead and injected 10 mL of lidocaine 1% above and below the clavicle. We then made a 1-cm incision at the puncture site. We made a 1-cm incision below the clavicle. We then tunneled the PermCath up to the puncture site. We then went ahead and placed our break-away sheath over the guidewire into the vein under fluoroscopy, and the cannula and guidewire were removed. Catheter was then placed inside the sheath. Sheath was broken away as the catheter was placed inside the vein. The neck of the catheter was nice and smooth. Tip of the catheter was located outside the right atrium. We then deya back on each port of the catheter, and there was good flow. Heparinized saline was injected, and 2000 units of IV heparin were injected into each port. Next, 4-0 Biosyn was used, and two simple stitches were placed at the puncture site, 3-0 nylon used, and the catheter was attached to the skin. Biopatch, 4 x 4, and Tegaderm were placed. Patient tolerated the procedure with no complications. Patient transferred to PACU in stable condition, where chest x-ray will be ordered. WILMER JACKSON DO MANAGER SECONDARY/[id number]
[2017-10-26] MEDS ORDERED: SODIUM CHLORIDE 250 ML IV PRN (13:01)
--- NOTE | 2017-10-26 13:01 | PN ---
Progress Note, Physician History of Present Illness: Pt seen and examined at bedside. She is awake and appears comfortable. - Current Medication List Current Medications: Active Medications Albuterol Sulfate (Ventolin Hfa Inhaler -) 2 puff IH Q4H PRN PRN Reason: ASTHMA Atorvastatin Calcium (Lipitor -) 20 mg PO HS [facility] Last Admin: 10/25/17 22:11 Dose: 20 mg Enoxaparin Sodium (Lovenox -) 40 mg SQ DAILY [facility] Last Admin: 10/25/17 12:24 Dose: 40 mg Furosemide (Lasix -) 80 mg PO DAILY [facility] Last Admin: 10/25/17 11:44 Dose: Not Given Daptomycin 850 mg/ Sodium (Chloride) 100 mls @ 200 mls/hr IVPB DAILY@1400 DAVID PRN Reason: Protocol Last Admin: 10/25/17 22:09 Dose: 200 mls/hr Ondansetron HCl (Zofran Injection) 4 mg IVPUSH Q6H PRN PRN Reason: NAUSEA AND/OR VOMITING Oxycodone HCl (Roxicodone -) 10 mg PO Q4H PRN PRN Reason: PAIN LEVEL 4-6 Last Admin: 10/25/17 18:01 Dose: 10 mg Pantoprazole Sodium (Protonix -) 20 mg PO BID [facility] Last Admin: 10/25/17 22:10 Dose: 20 mg Pregabalin (Lyrica -) 100 mg PO DAILY [facility] Last Admin: 10/25/17 11:44 Dose: Not Given Quetiapine Fumarate (Seroquel -) 200 mg PO HS [facility] Last Admin: 10/25/17 22:11 Dose: 200 mg Sevelamer Carbonate (Renvela -) 800 mg PO TIDCM [facility] Last Admin: 10/25/17 17:57 Dose: Not Given Zolpidem Tartrate (Ambien -) 5 mg PO HS PRN PRN Reason: INSOMNIA Last Admin: 10/25/17 22:11 Dose: 5 mg - Objective Vital Signs: Vital Signs Temperature 98.6 F 10/26/17 10:00 Pulse Rate 88 10/26/17 10:00 Respiratory Rate 18 10/26/17 10:00 Blood Pressure 118/72 10/26/17 10:00 O2 Sat by Pulse Oximetry (%) 96 10/25/17 21:00 Constitutional: Yes: Calm Eyes: Yes: Conjunctiva Clear HENT: Yes: Atraumatic Cardiovascular: Yes: S1, S2 Respiratory: Yes: CTA Bilaterally Gastrointestinal: Yes: Soft, Abdomen, Obese Genitourinary: Yes: WNL Musculoskeletal: Yes: WNL Edema: No Integumentary: Yes: Tattoos Neurological: Yes: Oriented Psychiatric: Yes: Oriented Labs: CBC, BMP 10/25/17 17:30 10/25/17 17:30 INR, PTT INR 1.32 (0.82-1.09) H 10/16/17 18:18 Problem List - Problems (1) Diabetes Code(s): E11.9 - TYPE 2 DIABETES MELLITUS WITHOUT COMPLICATIONS (2) ESRD (end stage renal disease) on dialysis Code(s): N18.6 - END STAGE RENAL DISEASE; Z99.2 - DEPENDENCE ON RENAL DIALYSIS (3) HTN (hypertension) Code(s): I10 - ESSENTIAL (PRIMARY) HYPERTENSION Qualifiers: Assessment/Plan Current Medications Generic Name Dose Route Start Last Admin Trade Name Freq PRN Reason Stop Dose Admin Albuterol Sulfate 2 puff 10/23/17 19:23 Ventolin Hfa Inhaler - IH Q4H PRN ASTHMA Atorvastatin Calcium 20 mg 10/23/17 22:00 10/25/17 22:11 Lipitor - PO 20 mg HS [facility] Administration Enoxaparin Sodium 40 mg 10/24/17 10:00 10/25/17 12:24 Lovenox - SQ 40 mg DAILY [facility] Administration Furosemide 80 mg 10/24/17 10:00 10/25/17 11:44 Lasix - PO Not Given DAILY [facility] Daptomycin 850 mg/ Sodium 100 mls @ 200 mls/hr 10/24/17 14:00 10/25/17 22:09 Chloride IVPB 200 mls/hr DAILY@1400 DAVID Administration Protocol Ondansetron HCl 4 mg 10/23/17 19:13 Zofran Injection IVPUSH Q6H PRN NAUSEA AND/OR VOMITING Oxycodone HCl 10 mg 10/23/17 19:23 10/25/17 18:01 Roxicodone - PO 10 mg Q4H PRN Administration PAIN LEVEL 4-6 Pantoprazole Sodium 20 mg 10/23/17 22:00 10/25/17 22:10 Protonix - PO 20 mg BID [facility]ID Administration Pregabalin 100 mg 10/24/17 10:00 10/25/17 11:44 Lyrica - PO Not Given DAILY [facility] Quetiapine Fumarate 200 mg 10/23/17 22:00 10/25/17 22:11 Seroquel - PO 200 mg HS [facility] Administration Sevelamer Carbonate 800 mg 10/24/17 08:00 10/25/17 17:57 Renvela - PO Not Given TIDCM [facility] Zolpidem Tartrate 5 mg 10/23/17 22:00 10/25/17 22:11 Ambien - PO 5 mg HS PRN Administration INSOMNIA Impression 1. ESRD 2. fever 3. change in mental status/confusion 4. htn 5. dm 6. asthma 7. obesity 8. anxiety 9. sleep apnea 10. hx of acute psychosis/delusions 11. bacteremia Plan - will arrange for HD in am - pt is pending placement, was not accepted in her center secondary to abx - renal diet - cont lasix - will follow - discussed plan with pt - discussed with medical team Dr Romano
--- NOTE | 2017-10-26 13:28 | PN ---
Progress Note (short form) - Note Progress Note: Vital Signs Period Temp Pulse Resp BP Sys/Chan Pulse Ox Last 24 Hr 97.8 F-99.1 F 78-95 18-22 100-165/60-88 96 S1S2 RRR lungs cta abd chronic tenderness, c/o heartburn +BS + pedal edema sleepy today IMP sepsis-MRSA/VRE ESRD due to polycystic kidney ds. morbid obesity chronic pain syndrome PTSD GERD Plan HD tomorrow daptomycin after each HD for 2 more weeks dc to snf tomorrow after HD Problem List - Problems (1) Altered mental status Code(s): R41.82 - ALTERED MENTAL STATUS, UNSPECIFIED Qualifiers: Altered mental status type: unspecified Qualified Code(s): R41.82 - Altered mental status, unspecified (2) Back pain Code(s): M54.9 - DORSALGIA, UNSPECIFIED Qualifiers: Back pain location: low back pain Chronicity: chronic Back pain laterality: bilateral Sciatica presence: without sciatica Qualified Code(s) : M54.5 - Low back pain; G89.29 - Other chronic pain; G89.29 - Other chronic pain (3) Chronic pain disorder Code(s): G89.4 - CHRONIC PAIN SYNDROME (4) ESRD (end stage renal disease) Code(s): N18.6 - END STAGE RENAL DISEASE (5) HTN (hypertension) Code(s): I10 - ESSENTIAL (PRIMARY) HYPERTENSION Qualifiers: (6) GA on CPAP Code(s): G47.33 - OBSTRUCTIVE SLEEP APNEA (ADULT) (PEDIATRIC)
[2017-10-26] MEDS: SODIUM CHLORIDE IVPB SCH (15:03)
[2017-10-26] MEDS: DAPTOMYCIN IVPB SCH (15:03)
[2017-10-26] MEDS: SEVELAMER CARBONATE 800 MG TAB (FP) PO SCH ×2 (15:03→16:56)
[2017-10-26] MEDS: PREGABALIN 100 MG CAPSULE PO SCH (16:55)
[2017-10-26] MEDS: PANTOPRAZOLE 40 MG TABLET (FP) PO SCH ×3 (16:55→21:55)
[2017-10-26] MEDS: FUROSEMIDE 40 MG TABLET (FP) PO SCH (16:56)
[2017-10-26] MEDS: ENOXAPARIN NA (PORCINE) 40 MG/0.4 ML DISP.SYRIN SQ SCH (16:56)
[2017-10-26] MEDS ORDERED: PT OWN MED DRAWER 7, Y5N ONE (21:54)
[2017-10-26] MEDS: ATORVASTATIN CA 20 MG TABLET (FP) PO SCH (21:55)
[2017-10-26] MEDS: QUEtiapine FUMARATE 200 MG TABLET PO SCH (21:56)
[2017-10-26] MEDS: ZOLPIDEM TARTRATE 5 MG TABLET PO PRN (21:56)
[2017-10-27] MEDS: SEVELAMER CARBONATE 800 MG TAB (FP) PO SCH ×3 (08:50→19:00)
--- NOTE | 2017-10-27 09:13 | DS ---
Physical Examination Vital Signs: Vital Signs Temperature 98.1 F 10/27/17 08:50 Pulse Rate 82 10/27/17 08:50 Respiratory Rate 20 10/27/17 08:50 Blood Pressure 150/85 10/27/17 08:50 O2 Sat by Pulse Oximetry (%) 97 10/26/17 21:00 Constitutional: Yes: Calm, Obese Eyes: Yes: EOM Intact HENT: Yes: Normocephalic Neck: Yes: Trachea Midline Cardiovascular: Yes: Regular Rate and Rhythm Respiratory: Yes: CTA Bilaterally Gastrointestinal: Yes: Normal Bowel Sounds, Soft Edema: LLE: Trace, RLE: Trace Peripheral Pulses WNL: Yes Wound/Incision: Yes: Clean/Dry Neurological: Yes: WNL Labs: CBC, BMP 10/25/17 17:30 10/25/17 17:30 Discharge Summary Reason For Visit: Altered Mental Status Current Active Problems Altered mental status (Acute) Bacteremia (Acute) PTSD (post-traumatic stress disorder) (Acute) Hospital Course: admitted for altered mentation-diagnosed with catheter related MRSA and VRE bacteremia permacath was pulled out and eventually was replaced repeat bcx negative since 10.19.17 plan to complete iv daptomycin after each HD until 11.09.17 echo showed no endocarditis, source is likely infected catheter pt is going to str to complete course Condition: Guarded - Instructions Diet, Activity, Other Instructions: iv daptomycin until 11.09.17 after each hemodialysis Referrals: Elvis Lau MD [Primary Care Provider] - Disposition: [facility] - Home Medications Comprehensive Discharge Medication List: Ambulatory Orders Albuterol Sulfate Inhaler - [Ventolin HFA Inhaler -] 1 - 2 inh PO Q4H 05/11/17 Furosemide [Lasix] 80 mg PO DAILY 05/11/17 Pregabalin [Lyrica] 100 mg PO DAILY 05/11/17 Salmeterol/Fluticasone [Advair 250Mcg/50Mcg -] 1 inh PO BID 05/11/17 Simvastatin 40 mg PO DAILY 05/11/17 Sevelamer Carbonate [Renvela -] 800 mg PO TIDCM tab 08/04/17 Docusate Sodium [Colace] 100 mg PO DAILY 10/16/17 Enoxaparin [Lovenox -] 40 mg SQ DAILY 10/16/17 Quetiapine Fumarate [Seroquel -] 200 mg PO HS 10/16/17 Daptomycin [Cubicin (Restricted To Id) -] 850 mg IVPB DAILY@1400 vial Pantoprazole Sodium [Protonix -] 20 mg PO BID tablet.ec 10/27/17 Zolpidem Tartrate [Ambien] 5 mg PO HS PRN tablet MDD 1 10/27/17 oxyCODONE HCL [Roxicodone -] 10 mg PO Q4H PRN tablet MDD 6 10/27/17
[2017-10-27] MEDS ORDERED: HEPARIN NA (PORCINE) 5,000 UNITS/ML 1ML VIAL IVPUSH ONE (09:30)
[2017-10-27] MEDS ORDERED: EPOETIN ALFA 2,000 UNIT, EPOETIN ALFA 3,000 UNIT IVPUSH ONE (10:00)
[2017-10-27] MEDS: HEPARIN NA (PORCINE) 5,000 UNITS/ML 1ML VIAL IVPUSH SCH ×3 (10:00→12:00)
[2017-10-27] MEDS: PANTOPRAZOLE 40 MG TABLET (FP) PO SCH ×2 (10:45→22:10)
[2017-10-27] MEDS: FUROSEMIDE 40 MG TABLET (FP) PO SCH (10:45)
[2017-10-27] MEDS: ENOXAPARIN NA (PORCINE) 40 MG/0.4 ML DISP.SYRIN SQ SCH ×2 (10:45→22:10)
[2017-10-27] MEDS: PREGABALIN 100 MG CAPSULE PO SCH (10:45)
[2017-10-27 10:49] LABS: HEMOGLOBIN 9.5 GM/dL (10.7-15.3); MCH 32.3 pg (25.7-33.7); MCHC 32.9 g/dl (32.0-36.0); MEAN CELL VOLUME 98.2 fl (80-96); PLATELET COUNT 159 K/MM3 (134-434); RBC 2.96 M/mm3 (3.60-5.2); RDW 16.3 % (11.6-15.6); WHITE BLOOD COUNT 4.8 K/mm3 (4.0-10.0)
[2017-10-27 10:56] LABS: ANION GAP 9 (8-16); BLOOD UREA NITROGEN 27 mg/dL (7-18); CALCIUM 8.5 mg/dL (8.5-10.1); CHLORIDE 105 mmol/L (98-107); CO2 29 mmol/L (21-32); GLUCOSE,RANDOM 77 mg/dL (74-106); POTASSIUM 4.7 mmol/L (3.5-5.1); SODIUM 143 mmol/L (136-145)
[2017-10-27 10:59] LABS: CREATININE 6.2 mg/dL (0.55-1.02)
[2017-10-27] MEDS ORDERED: EPOETIN ALFA 2,000 UNIT/1 ML VIAL IVPUSH ONE (13:01)
[2017-10-27] MEDS: DAPTOMYCIN IVPB SCH (16:01)
[2017-10-27] MEDS: SODIUM CHLORIDE IVPB SCH (16:01)
--- NOTE | 2017-10-27 16:24 | PN ---
Progress Note, Physician History of Present Illness: Pt seen and examined at bedside. She tolerated HD today. - Current Medication List Current Medications: Active Medications Albuterol Sulfate (Ventolin Hfa Inhaler -) 2 puff IH Q4H PRN PRN Reason: ASTHMA Atorvastatin Calcium (Lipitor -) 20 mg PO HS [facility] Last Admin: 10/26/17 21:55 Dose: 20 mg Enoxaparin Sodium (Lovenox -) 40 mg SQ DAILY [facility] Last Admin: 10/27/17 10:45 Dose: Not Given Furosemide (Lasix -) 80 mg PO DAILY [facility] Last Admin: 10/27/17 10:45 Dose: Not Given Daptomycin 850 mg/ Sodium (Chloride) 100 mls @ 200 mls/hr IVPB DAILY@1400 DAVID PRN Reason: Protocol Last Admin: 10/27/17 16:01 Dose: 200 mls/hr Ondansetron HCl (Zofran Injection) 4 mg IVPUSH Q6H PRN PRN Reason: NAUSEA AND/OR VOMITING Pantoprazole Sodium (Protonix -) 20 mg PO BID [facility] Last Admin: 10/27/17 10:45 Dose: Not Given Pregabalin (Lyrica -) 100 mg PO DAILY [facility] Last Admin: 10/27/17 10:45 Dose: Not Given Quetiapine Fumarate (Seroquel -) 200 mg PO HS [facility] Last Admin: 10/26/17 21:56 Dose: 200 mg Sevelamer Carbonate (Renvela -) 800 mg PO TIDCM [facility] Last Admin: 10/27/17 13:54 Dose: Not Given - Objective Vital Signs: Vital Signs Temperature 97.3 F L 10/27/17 14:59 Pulse Rate 84 10/27/17 14:59 Respiratory Rate 22 10/27/17 14:59 Blood Pressure 134/78 10/27/17 14:59 O2 Sat by Pulse Oximetry (%) 97 10/26/17 21:00 Constitutional: Yes: Calm Eyes: Yes: Conjunctiva Clear HENT: Yes: Atraumatic Cardiovascular: Yes: S1, S2 Respiratory: Yes: CTA Bilaterally Gastrointestinal: Yes: Soft Genitourinary: Yes: WNL Musculoskeletal: Yes: WNL Edema: No Integumentary: Yes: Tattoos Labs: CBC, BMP 10/27/17 09:30 10/27/17 09:30 INR, PTT INR 1.32 (0.82-1.09) H 10/16/17 18:18 Problem List - Problems (1) Diabetes Code(s): E11.9 - TYPE 2 DIABETES MELLITUS WITHOUT COMPLICATIONS (2) ESRD (end stage renal disease) on dialysis Code(s): N18.6 - END STAGE RENAL DISEASE; Z99.2 - DEPENDENCE ON RENAL DIALYSIS (3) HTN (hypertension) Code(s): I10 - ESSENTIAL (PRIMARY) HYPERTENSION Qualifiers: Assessment/Plan Current Medications Generic Name Dose Route Start Last Admin Trade Name Freq PRN Reason Stop Dose Admin Albuterol Sulfate 2 puff 10/23/17 19:23 Ventolin Hfa Inhaler - IH Q4H PRN ASTHMA Atorvastatin Calcium 20 mg 10/23/17 22:00 10/26/17 21:55 Lipitor - PO 20 mg HS DAVID Administration Enoxaparin Sodium 40 mg 10/24/17 10:00 10/27/17 10:45 Lovenox - SQ Not Given DAILY DAVID Furosemide 80 mg 10/24/17 10:00 10/27/17 10:45 Lasix - PO Not Given DAILY DAVID Daptomycin 850 mg/ Sodium 100 mls @ 200 mls/hr 10/24/17 14:00 10/27/17 16:01 Chloride IVPB 200 mls/hr DAILY@1400 DAVID Administration Protocol Ondansetron HCl 4 mg 10/23/17 19:13 Zofran Injection IVPUSH Q6H PRN NAUSEA AND/OR VOMITING Pantoprazole Sodium 20 mg 10/23/17 22:00 10/27/17 10:45 Protonix - PO Not Given BID DAVID Pregabalin 100 mg 10/24/17 10:00 10/27/17 10:45 Lyrica - PO Not Given DAILY DAVID Quetiapine Fumarate 200 mg 10/23/17 22:00 10/26/17 21:56 Seroquel - PO 200 mg HS DAVID Administration Sevelamer Carbonate 800 mg 10/24/17 08:00 10/27/17 13:54 Renvela - PO Not Given TIDCM DAVID Impression 1. ESRD 2. fever 3. change in mental status/confusion 4. htn 5. dm 6. asthma 7. obesity 8. anxiety 9. sleep apnea 10. hx of acute psychosis/delusions 11. bacteremia Plan - pt tolerated HD today - pending placement for HD - cont abx per ID - renal diet - cont lasix - will follow Dr Romano
[2017-10-27] MEDS ORDERED: PT OWN MED DRAWER 7, Y5N ONE (20:40)
[2017-10-27] MEDS: ATORVASTATIN CA 20 MG TABLET (FP) PO SCH (22:10)
[2017-10-27] MEDS: QUEtiapine FUMARATE 200 MG TABLET PO SCH (22:10)
[2017-10-28 09:46] VITALS: BP 145/88; PULSE 84; TEMP 97.7
[2017-10-28] MEDS: FUROSEMIDE 40 MG TABLET (FP) PO SCH (09:47)
[2017-10-28] MEDS: PANTOPRAZOLE 40 MG TABLET (FP) PO SCH (09:47)
[2017-10-28] MEDS: SEVELAMER CARBONATE 800 MG TAB (FP) PO SCH ×2 (09:47→12:31)
[2017-10-28] MEDS: ENOXAPARIN NA (PORCINE) 40 MG/0.4 ML DISP.SYRIN SQ SCH (09:47)
[2017-10-28] MEDS: PREGABALIN 100 MG CAPSULE PO SCH (09:57)
--- NOTE | 2017-10-28 10:27 | PN ---
Progress Note (short form) - Note Progress Note: she had one time vomitid last night now she is better no vomiting and she is eating food vs stable heent nad abd soft and non tender ap she is ready to dc [facility] all the paper work is done
--- NOTE | 2017-10-28 12:54 | PN ---
Progress Note, Physician History of Present Illness: Pt seen and examined at bedside. She is awake and alert. She denies shortness of breath, fever, or chills. - Current Medication List Current Medications: Active Medications Albuterol Sulfate (Ventolin Hfa Inhaler -) 2 puff IH Q4H PRN PRN Reason: ASTHMA Atorvastatin Calcium (Lipitor -) 20 mg PO [facility] Last Admin: 10/27/17 22:10 Dose: 20 mg Enoxaparin Sodium (Lovenox -) 40 mg SQ DAILY [facility] Last Admin: 10/28/17 09:47 Dose: 40 mg Furosemide (Lasix -) 80 mg PO DAILY [facility] Last Admin: 10/28/17 09:47 Dose: 80 mg Daptomycin 850 mg/ Sodium (Chloride) 100 mls @ 200 mls/hr IVPB DAILY@1400 DAVID PRN Reason: Protocol Last Admin: 10/27/17 16:01 Dose: 200 mls/hr Ondansetron HCl (Zofran Injection) 4 mg IVPUSH Q6H PRN PRN Reason: NAUSEA AND/OR VOMITING Pantoprazole Sodium (Protonix -) 20 mg PO BID [facility] Last Admin: 10/28/17 09:47 Dose: 20 mg Pregabalin (Lyrica -) 100 mg PO DAILY [facility] Last Admin: 10/28/17 09:57 Dose: 100 mg Quetiapine Fumarate (Seroquel -) 200 mg PO [facility] Last Admin: 10/27/17 22:10 Dose: 200 mg Sevelamer Carbonate (Renvela -) 800 mg PO TIDCM [facility] Last Admin: 10/28/17 12:31 Dose: Not Given - Objective Vital Signs: Vital Signs Temperature 97.7 F 10/28/17 09:41 Pulse Rate 84 10/28/17 09:41 Respiratory Rate 20 10/28/17 09:41 Blood Pressure 145/88 10/28/17 09:41 O2 Sat by Pulse Oximetry (%) 97 10/27/17 21:00 Constitutional: Yes: Calm Eyes: Yes: Conjunctiva Clear HENT: Yes: Atraumatic Cardiovascular: Yes: S1, S2 Respiratory: Yes: CTA Bilaterally Gastrointestinal: Yes: Normal Bowel Sounds, Soft Genitourinary: Yes: WNL Extremities: Yes: WNL Edema: No Neurological: Yes: Oriented Psychiatric: Yes: Oriented Labs: CBC, BMP 10/27/17 09:30 10/27/17 09:30 INR, PTT INR 1.32 (0.82-1.09) H 10/16/17 18:18 Problem List - Problems (1) Diabetes Code(s): E11.9 - TYPE 2 DIABETES MELLITUS WITHOUT COMPLICATIONS (2) ESRD (end stage renal disease) on dialysis Code(s): N18.6 - END STAGE RENAL DISEASE; Z99.2 - DEPENDENCE ON RENAL DIALYSIS (3) HTN (hypertension) Code(s): I10 - ESSENTIAL (PRIMARY) HYPERTENSION Qualifiers: Assessment/Plan Current Medications Generic Name Dose Route Start Last Admin Trade Name Freq PRN Reason Stop Dose Admin Albuterol Sulfate 2 puff 10/23/17 19:23 Ventolin Hfa Inhaler - IH Q4H PRN ASTHMA Atorvastatin Calcium 20 mg 10/23/17 22:00 10/27/17 22:10 Lipitor - PO 20 mg HS DAVID Administration Enoxaparin Sodium 40 mg 10/24/17 10:00 10/28/17 09:47 Lovenox - SQ 40 mg DAILY DAVID Administration Furosemide 80 mg 10/24/17 10:00 10/28/17 09:47 Lasix - PO 80 mg DAILY DAVID Administration Daptomycin 850 mg/ Sodium 100 mls @ 200 mls/hr 10/24/17 14:00 10/27/17 16:01 Chloride IVPB 200 mls/hr DAILY@1400 DAVID Administration Protocol Ondansetron HCl 4 mg 10/23/17 19:13 Zofran Injection IVPUSH Q6H PRN NAUSEA AND/OR VOMITING Pantoprazole Sodium 20 mg 10/23/17 22:00 10/28/17 09:47 Protonix - PO 20 mg BID DAVID Administration Pregabalin 100 mg 10/24/17 10:00 10/28/17 09:57 Lyrica - PO 100 mg DAILY DAVID Administration Quetiapine Fumarate 200 mg 10/23/17 22:00 10/27/17 22:10 Seroquel - PO 200 mg HS DAVID Administration Sevelamer Carbonate 800 mg 10/24/17 08:00 10/28/17 12:31 Renvela - PO Not Given TIDCM DAVID Impression 1. ESRD 2. fever 3. change in mental status/confusion 4. htn 5. dm 6. asthma 7. obesity 8. anxiety 9. sleep apnea 10. hx of acute psychosis/delusions 11. bacteremia Plan - pt has HD set up as outpt - she was dialyzed yesterday - renal diet - will need vascular follow up after discharge - abx per ID Dr Romano
== END 2017-10-28 13:15 | DRG 919 ==
LOC: JER 14:58 → JERBED 19:35 → J5S 10-17 01:57
PROVIDERS: ADMIT Internal Medicine; ATTEND Internal Medicine
PROC: B514ZZA Fluoroscopy of Left Jugular Veins, Guidance (ICD-10-PCS; 2017-10-23)
PROC: 05HN33Z Insertion of Infusion Device into Left Internal Jugular Vein, Percutaneous Approach (ICD-10-PCS; principal; 2017-10-23 11:00)
PROC: 5A1D90Z Performance of Urinary Filtration, Continuous, Greater than 18 hours Per Day (ICD-10-PCS; 2017-10-27)
DX: T85.79XA Infection and inflammatory reaction due to other internal prosthetic devices, implants and grafts, initial encounter (principal); N18.6 End stage renal disease; G93.41 Metabolic encephalopathy; A41.9 Sepsis, unspecified organism; Z68.41 Body mass index [BMI] 40.0-44.9, adult; Q61.3 Polycystic kidney, unspecified; I12.0 Hypertensive chronic kidney disease with stage 5 chronic kidney disease or end stage renal disease; F43.10 Post-traumatic stress disorder, unspecified; R41.82 Altered mental status, unspecified; Z99.2 Dependence on renal dialysis; E66.01 Morbid (severe) obesity due to excess calories; G47.33 Obstructive sleep apnea (adult) (pediatric); K21.9 Gastro-esophageal reflux disease without esophagitis; M54.5 Low back pain; G89.29 Other chronic pain; F41.9 Anxiety disorder, unspecified; J45.909 Unspecified asthma, uncomplicated; F17.210 Nicotine dependence, cigarettes, uncomplicated; Y83.9 Surgical procedure, unspecified as the cause of abnormal reaction of the patient, or of later complication, without mention of misadventure at the time of the procedure
CPT/HCPCS: 36415; 70450-TC; 71045-TC-FY; 74176-TC; 76000-TC-FY; 80048; 80053; 81003; 81015; 82803; 82962; 83605; 85025; 85027; 85610; 85730; 86140; 86704; 86706; 86708; 86850; 86900; 86901; 87040; 87186; 87340; 93005; 93010; 93306-TC; 94760; 97116-GP; 99283-25; G0480; J0131; J0878; J0885; J1644

== ENCOUNTER 2017-10-31 16:49 | Emergency (ER) | payer OTHER ==
--- NOTE | 2017-10-31 17:06 | PDOC ---
History of Present Illness - History of Present Illness Initial Comments: 10/31/17 17:50 The patient is a 52 yo female with PMHx of chronic back pain, ESRD, obesity, hypertension, DM dialysis t/r/sat, who was BIBA from [facility] for chronic wound. Patient was discharged from [facility] 2 weeks ago s/p PermCath replacement. She is here today for a chronic abdominal wound. She states that she began physical therapy recently, which may have cause her wound to reopen. She states however, that she has been having problems with her would healing. She was dialyzed yesterday. <Nelly Bazan - Last Filed: 10/31/17 19:01> <Abbie Lyles - Last Filed: 10/31/17 19:14> - General Chief Complaint: Wound Stated Complaint: ABSCESS Past History <Nelly Bazan - Last Filed: 10/31/17 19:01> - Past Medical History Anemia: No Asthma: Yes Cancer: No Cardiac Disorders: No CVA: No COPD: No CHF: No Dementia: No Diabetes: Yes (DM) Dialysis: Yes (T,TH,Sat) GI Disorders: Yes (UMBALICAL HERNIA) Disorders: No HTN: Yes Hypercholesterolemia: No Liver Disease: No Psychiatric Problems: Yes (PTSD) Seizures: No Thyroid Disease: No - Surgical History Abdominal Surgery: Yes (UMB.HERNIA X 5 / mesh placement x2 /) Appendectomy: No Cardiac Surgery: No Cholecystectomy: No GI Surgery: Yes Lung Surgery: No Neurologic Surgery: No - Immunization History Immunization Up to Date: Yes - Suicide/Smoking/Psychosocial Hx Smoking Status: Yes Smoking History: Current every day smoker Have you smoked in the past 12 months: Yes Number of Cigarettes Smoked Daily: 30 'Breaking Loose' booklet given: 10/17/17 Hx Alcohol Use: No Drug/Substance Use Hx: No Substance Use Type: None Hx Substance Use Treatment: No <Abbie Lyles - Last Filed: 10/31/17 19:14> - Past Medical History Allergies/Adverse Reactions: Allergies Allergy/AdvReac Type Severity Reaction Status Date / Time No Known Allergies Allergy Verified 07/05/17 13:04 Home Medications: Ambulatory Orders Albuterol Sulfate Inhaler - [Ventolin HFA Inhaler -] 1 - 2 inh PO Q4H 05/11/17 Furosemide [Lasix] 80 mg PO DAILY 11/02/17 Pregabalin [Lyrica] 100 mg PO DAILY 05/11/17 Salmeterol/Fluticasone [Advair 250Mcg/50Mcg -] 1 inh PO BID 05/11/17 Simvastatin 40 mg PO DAILY 05/11/17 Sevelamer Carbonate [Renvela -] 800 mg PO TIDCM tab 08/04/17 Docusate Sodium [Colace] 100 mg PO DAILY 10/16/17 Enoxaparin [Lovenox -] 40 mg SQ DAILY 10/16/17 Quetiapine Fumarate [Seroquel -] 200 mg PO HS 10/16/17 Daptomycin [Cubicin (Restricted To Id) -] 850 mg IVPB DAILY@1400 vial Pantoprazole Sodium [Protonix -] 20 mg PO BID tablet.ec 10/27/17 Zolpidem Tartrate [Ambien] 5 mg PO HS PRN tablet MDD 1 10/27/17 oxyCODONE HCL [Roxicodone -] 10 mg PO Q4H PRN tablet MDD 6 10/27/17 Review of Systems - Review of Systems Comments:: 10/31/17 17:50 CONSTITUTIONAL: Absent: fever, no chills, no fatigue EYES: Absent: visual changes ENT: Absent: ear pain, no sore throat CARDIOVASCULAR: Absent: chest pain, no palpitations RESPIRATORY: Absent: cough, no SOB GI: Absent: abdominal pain, no nausea, no vomiting, no constipation, no diarrhea GENITOURINARY: Absent: dysuria, no frequency, no hematuria MUSCULOSKELETAL: Absent: back pain, no arthralgia, no myalgia SKIN: Present: serosanguineous abdominal wound. Absent: rash NEURO: Absent: headache <Nelly Bazan - Last Filed: 10/31/17 19:01> *Physical Exam - Vital Signs Last Vital Signs Temp Pulse Resp BP Pulse Ox 97.5 F L 79 18 134/81 100 10/31/17 17:05 10/31/17 17:05 10/31/17 17:05 10/31/17 17:05 10/31/17 17:05 - Physical Exam Comments: 10/31/17 17:51 GENERAL: Well-appearing, well-nourished. No apparent distress. HEENT: Normocephalic, atraumatic. PERRL, EOM intact. CARDIOVASCULAR: Normal S1, S2. Regular rate and rhythm. PULMONARY: Clear to auscultation bilaterally. ABDOMEN: Obese, Soft, non-distended, non-tender, has old wound with 4mm area of dehiscence, no active bleeding. EXTREMITIES: Normal ROM in all four extremities. No gross deformities. SKIN: Serosanguineous 4 mm opening of abdominal wound. No clots. NEUROLOGICAL: <Nelly Bazan - Last Filed: 10/31/17 19:01> ED Treatment Course - LABORATORY CBC & Chemistry Diagram: 10/31/17 18:09 - Consult/PCP Case discussed with personal care physician: Elvis Lau (Spoke with Dr. Lau , patient will be d/c. Apply bacitracin 2x/day ) <Nelly Bazan - Last Filed: 10/31/17 19:01> - LABORATORY CBC & Chemistry Diagram: 10/31/17 18:09 <Abbie Lyles - Last Filed: 10/31/17 19:14> Medical Decision Making - Medical Decision Making 10/31/17 18:46 52-year-old female brought in by ambulance at [facility] where she is admitted for rehabilitation. She has a history of an abdominal wound and has a 4 mm dehiscence and she had bleeding from this wound while doing physical therapy today -pt has stable vital signs -we checked her hbg/hct and they are unchanged from her previous levels --she does have history of anemia with her Hgb <Abbie Lyles - Last Filed: 10/31/17 19:14> *DC/Admit/Observation/Transfer - Attestations Scribe Attestion: 10/31/17 17:53 Documentation prepared by Nelly Bazan, acting as medical diagnostic radiographer for Abbie Lyles MD. <Nelly Bazan - Last Filed: 10/31/17 19:01> <Abbie Lyles - Last Filed: 10/31/17 19:14> Diagnosis at time of Disposition: Wound dehiscence - Discharge Dispostion Disposition: HOME Condition at time of disposition: Stable - Referrals Referrals: Elvis Lau MD [Primary Care Provider] - - Patient Instructions Printed Discharge Instructions: DI for Wound Dehiscence Additional Instructions: PLEASE APPLY BACITRACIN TWICE DAILY TO THE WOUND
[2017-10-31 17:09] VITALS: BP 134/81; PULSE 79; TEMP 97.5; BMI 50.5
[2017-10-31 18:20] LABS: BASO % 0.6 % (0-2.0); EOS % 1.6 % (0-4.5); HEMATOCRIT 28.8 % (32.4-45.2); HEMOGLOBIN 9.7 GM/dL (10.7-15.3); LYMPH % 28.6 % (8-40); MCH 32.5 pg (25.7-33.7); MCHC 33.6 g/dl (32.0-36.0); MEAN CELL VOLUME 96.7 fl (80-96); MEAN PLT VOLUME 8.8 fl (7.5-11.1); MONO % 6.4 % (3.8-10.2); NEUT % 62.8 % (42.8-82.8); PLATELET COUNT 134 K/MM3 (134-434); RBC 2.98 M/mm3 (3.60-5.2); RDW 15.7 % (11.6-15.6); WHITE BLOOD COUNT 3.7 K/mm3 (4.0-10.0)
--- NOTE | 2017-11-03 10:00 | EKG ---
Test Reason : Blood Pressure : / mmHG Vent. Rate : 073 BPM Atrial Rate : 073 BPM P-R Int : 168 ms QRS Dur : 086 ms QT Int : 410 ms P-R-T Axes : 053 001 042 degrees QTc Int : 451 ms POOR DATA QUALITY, INTERPRETATION MAY BE ADVERSELY AFFECTED NORMAL SINUS RHYTHM NONSPECIFIC T WAVE ABNORMALITY WHEN COMPARED WITH ECG OF 16-OCT-2017 16:19, QT HAS SHORTENED Confirmed by NEDRA VALE, SONYA ([id number]) on 11/03/2017 9:59:58 AM Referred By: Confirmed By:SONYA SNEED MD
== END 2017-10-31 19:56 | disposition home or self-care (01) ==
LOC: JER 16:49
DX: T81.30XA Disruption of wound, unspecified, initial encounter (principal); J45.909 Unspecified asthma, uncomplicated; F43.10 Post-traumatic stress disorder, unspecified; I12.0 Hypertensive chronic kidney disease with stage 5 chronic kidney disease or end stage renal disease; E11.22 Type 2 diabetes mellitus with diabetic chronic kidney disease; N18.6 End stage renal disease; N17.8 Other acute kidney failure; F17.210 Nicotine dependence, cigarettes, uncomplicated; Z99.2 Dependence on renal dialysis
CPT/HCPCS: 36415; 85025; 93005; 93010; 99282-25

== ENCOUNTER 2017-11-07 16:56 | Inpatient (IN) | payer OTHER ==
--- NOTE | 2017-11-07 17:23 | PDOC ---
History of Present Illness - General Chief Complaint: Dialysis Shunt Problem Stated Complaint: CATH. FAILURE History Source: Patient Exam Limitations: No Limitations - History of Present Illness Initial Comments: 11/07/17 17:20 52yo F with history of ESRD (/ dialysis) who presents from [facility] for "problems with permacath." Pt reports that her dialysis could not be initiated today due to a suspected obstructed permacath. Her permacath was replaced on 10/26/[address] Crabtree without any complications. Pt states she has been undergoing dialysis without problem until today. She has had prior permacaths with replacements in the past. Pt also notes she normally goes to [facility], however was at [facility] after her most recent hospitalization. Denies any complaints at this time. PCP: Dr. Velazco Marine Geologist: Dr. Romano Past History - Past Medical History Allergies/Adverse Reactions: Allergies Allergy/AdvReac Type Severity Reaction Status Date / Time No Known Allergies Allergy Verified 11/16/17 17:50 Home Medications: Ambulatory Orders Albuterol Sulfate Inhaler - [Ventolin HFA Inhaler -] 1 - 2 inh PO Q4H 05/11/17 Furosemide [Lasix] 80 mg PO DAILY 05/11/17 Pregabalin [Lyrica] 100 mg PO DAILY 05/11/17 Salmeterol/Fluticasone [Advair 250Mcg/50Mcg -] 1 inh PO BID 05/11/17 Simvastatin 40 mg PO DAILY 05/11/17 Sevelamer Carbonate [Renvela -] 800 mg PO TIDCM tab 08/04/17 Docusate Sodium [Colace] 100 mg PO DAILY 10/16/17 Quetiapine Fumarate [Seroquel -] 200 mg PO HS 10/16/17 Daptomycin [Cubicin (Restricted To Id) -] 850 mg IVPB DAILY@1400 vial Pantoprazole Sodium [Protonix -] 20 mg PO BID tablet.ec 10/27/17 oxyCODONE HCL [Roxicodone -] 10 mg PO Q4H PRN tablet MDD 6 10/27/17 Aspirin Coated [Ecotrin -] 81 mg PO DAILY #30 tablet.ec 11/10/17 Daptomycin [Cubicin (Restricted To Id) -] 850 mg IVPB Q2D@1600 vial 11/10/17 Mupirocin Cream [Bactroban 2% Cream -] 1 applic TP BID 15 Days #1 tube 11/10/17 Anemia: No Asthma: Yes Cancer: No Cardiac Disorders: No CVA: No COPD: No CHF: No Dementia: No Diabetes: Yes (DM) Dialysis: Yes (T,TH,Sat) GI Disorders: Yes (UMBALICAL HERNIA) Disorders: No HTN: Yes Hypercholesterolemia: No Liver Disease: No Psychiatric Problems: Yes (PTSD) Seizures: No Thyroid Disease: No - Surgical History Abdominal Surgery: Yes (UMB.HERNIA X 5 / mesh placement x2 /) Appendectomy: No Cardiac Surgery: No Cholecystectomy: No GI Surgery: Yes Lung Surgery: No Neurologic Surgery: No - Immunization History Immunization Up to Date: Yes - Suicide/Smoking/Psychosocial Hx Smoking Status: Yes Smoking History: Current every day smoker Have you smoked in the past 12 months: Yes Number of Cigarettes Smoked Daily: 30 Information on smoking cessation initiated: No 'Breaking Loose' booklet given: 10/17/17 Hx Alcohol Use: No Drug/Substance Use Hx: No Substance Use Type: None Hx Substance Use Treatment: No *Physical Exam - Vital Signs Last Vital Signs Temp Pulse Resp BP Pulse Ox 98.0 F 93 H 16 122/65 95 11/07/17 17:00 11/07/17 17:00 11/07/17 17:00 11/07/17 17:00 11/07/17 17:00 - Physical Exam Comments: 11/07/17 17:40 GEN: NAD, awake, alert and oriented x3 HEENT: EOMI, KERWIN, sclera anicteric, moist mucosa Neck: No JVD CHEST: L permacath taped cleanly, tenderness while tracking permacath with soft palpation noted LUNGS: CTA bilaterally CARDIAC: RRR no murmurs appreciated ABD: Soft, NT/ND, normoactive BS, no guarding EXT: 1+ DP pulses, multiple scars noted on arms from prior catheter placements ED Treatment Course - LABORATORY CBC & Chemistry Diagram: 11/08/17 07:40 11/08/17 07:40 Medical Decision Making - Medical Decision Making 11/07/17 17:36 EKG CMP - r/o any potassium abnormalities Unable to get in contact with personnel at [facility] to discuss events of problem Contacted Dr. Crabtree and will try to contact dialysis to use Cathflow through catheter --Unable to contact Dialysis; pt reports [facility] using Cathflow without any efficacy earlier today 11/07/17 19:22 Pt refusing labs for now; understands risks of not drawing labs at this time --Will attempt with patient's permission at later time 11/07/17 20:29 CBC and CMP obtained and pending! 11/07/17 21:00 CBC reveals anemia however with trending values seems to be anemia of chronic disease 11/07/17 21:38 CMP with potassium WNL, BUN 35, Cr 8.8 --M/S obs for permacath eval and possible dialysis tomorrow (no indication for emergent dialysis) *DC/Admit/Observation/Transfer Diagnosis at time of Disposition: ESRD (end stage renal disease) on dialysis, Dialysis catheter clot or failure - Discharge Dispostion Disposition: HOME Condition at time of disposition: Guarded Decision to Admit order: Yes - Prescriptions - Referrals - Patient Instructions - Post Discharge Activity
[2017-11-07 20:28] LABS: BASO % 0.8 % (0-2.0); EOS % 3.6 % (0-4.5); HEMATOCRIT 26.5 % (32.4-45.2); HEMOGLOBIN 8.9 GM/dL (10.7-15.3); LYMPH % 28.6 % (8-40); MCH 31.8 pg (25.7-33.7); MCHC 33.5 g/dl (32.0-36.0); MEAN CELL VOLUME 94.7 fl (80-96); MEAN PLT VOLUME 9.1 fl (7.5-11.1); MONO % 9.2 % (3.8-10.2); NEUT % 57.8 % (42.8-82.8); PLATELET COUNT 131 K/MM3 (134-434); RDW 15.1 % (11.6-15.6); WHITE BLOOD COUNT 2.8 K/mm3 (4.0-10.0)
[2017-11-07 21:26] LABS: ALBUMIN 1.6 g/dl (3.4-5.0); ANION GAP 8 (8-16); BLOOD UREA NITROGEN 35 mg/dL (7-18); CALCIUM 8.1 mg/dL (8.5-10.1); CHLORIDE 103 mmol/L (98-107); CO2 23 mmol/L (21-32); GLUCOSE,RANDOM 77 mg/dL (74-106); SGPT/ALT 18 U/L (12-78); SODIUM 134 mmol/L (136-145)
[2017-11-07 21:33] LABS: ALK PHOS 71 U/L (45-117); BILIRUBIN,TOTAL 0.3 mg/dL (0.2-1.0); TOT PROT 6.5 g/dl (6.4-8.2)
[2017-11-07 21:35] LABS: POTASSIUM 4.5 mmol/L (3.5-5.1); SGOT/AST 47 U/L (15-37)
[2017-11-07 21:36] LABS: CREATININE 8.8 mg/dL (0.55-1.02)
--- NOTE | 2017-11-07 21:40 | PDOC ---
Attending Attestation - HPI HPI: 11/07/17 21:52 The patient is a year old female with a significant past medical history of Dialysis (Monday, ,Monday),diabetes, asthma, umbilical hernia, HTN, PTSD who was brought in from [facility] who presents to the emergency department for evaluation of permacath clog. The patient reports she was unable to receive dialysis treatment today due to supposed obstruction in permcath. Patient has history of permacaths with replacements in the past. Of note, Dr. Crabtree replaced her permacath on 10/26/2017. Allergies: NKDA Past surgical history: Umbilical hernia X 5/mesh placement x2 , GI Surgery. Social history: Current everyday smoker. No reported alcohol or drug use. PCP: Dr. Velazco Lumber Straightened: Dr. Romano - Medical Decision Making Consulted Dr. Lau at 21:45. <Marcus Lyman - Last Filed: 11/07/17 21:52> - Resident Resident Name: Juan Antonio Morris - ED Attending Attestation I have performed the following: I have examined & evaluated the patient, The case was reviewed & discussed with the resident, I agree w/resident's findings & plan, Exceptions are as noted - Physicial Exam PE: 11/08/17 00:51 obese 52 yo female in lang acute distress head ncat neck old scars lungs no ales cvs [id number] abd obese,old midline abd wound ext niminla edema neuro axox3 left ant chest permacath - Medical Decision Making 11/07/17 21:[address] Lau about this patient. Her dialysis permacath could not be accessed today-it was clotted. Dr Lau [facility] The plan is for the dialysis team to try to open the permacath in the morning so she could be sent back to the [place] and get her dialysis. <Abbie Lyles - Last Filed: 11/08/17 00:52> Heart Score/ECG Review - ECG Impressions Comment:: 11/07/17 21:[address] Lyles at 18:20. Normal sinus rhythm Nonspecific T wave abnormality Prolonged QT Abnormal ECG Vent. rate 81 bpm OK interval 190 ms QRS duration 94 ms QT/QTc 404/469 ms P-R-T axes 59 10 52 <Marcus Lyman - Last Filed: 11/07/17 21:52> Attestations - Attestations Documentation prepared by Marcus Lyman, acting as medical officer psychiatry for Abbie Lyles MD. <Marcus Lyman - Last Filed: 11/07/17 21:52>
--- NOTE | 2017-11-07 22:46 | PDOC ---
*Physical Exam - Vital Signs Last Vital Signs Temp Pulse Resp BP Pulse Ox 98.0 F 87 16 132/67 99 11/07/17 17:00 11/07/17 21:13 11/07/17 21:13 11/07/17 21:13 11/07/17 21:13 ED Treatment Course - LABORATORY CBC & Chemistry Diagram: 11/07/17 20:18 11/07/17 20:18 - ADDITIONAL ORDERS Additional order review: Laboratory Results 11/07/17 20:18 Sodium 134 L Potassium 4.5 Chloride 103 Carbon Dioxide 23 Anion Gap 8 BUN 35 H Creatinine 8.8 H* Creat Clearance w eGFR 4.75 Random Glucose 77 Calcium 8.1 L Total Bilirubin 0.3 D AST 47 H ALT 18 Alkaline Phosphatase 71 Total Protein 6.5 Albumin 1.6 L 11/07/17 20:18 RBC 2.80 L MCV 94.7 MCHC 33.5 RDW 15.1 MPV 9.1 Neutrophils % 57.8 Lymphocytes % 28.6 Monocytes % 9.2 Eosinophils % 3.6 D Basophils % 0.8 *DC/Admit/Observation/Transfer Diagnosis at time of Disposition: ESRD (end stage renal disease) on dialysis, Dialysis catheter clot or failure - Discharge Dispostion Admit: Yes - Referrals Referrals: Elvis Lau MD [Primary Care Provider] - - Patient Instructions - Post Discharge Activity
--- NOTE | 2017-11-07 23:01 | HP ---
CHIEF COMPLAINT: PermaCath not working PCP: Dr. Nancie Leslie HISTORY OF PRESENT ILLNESS: 52 y/o woman PMH ESRD, Abdominal Wound (MRSA/VREF). Who presents to the ED for non-working permacath. Patient was at the dialysis center today, and could not be dialyzed. Patient reports feeling tired. Patient denies fever, chills, cough , SOB, CP, N/V/D ER course was notable for: (1) CKD- BUN 35, Cr 8.8 (2) Hgb 8.5, HCT 26.5 (3) Recent Travel: None PAST MEDICAL HISTORY: See HPI PAST SURGICAL HISTORY: See HPI Social History: Smoking: Cigarettes daily Alcohol: Denies Drugs: Denies Lives alone Family History: Allergies No Known Allergies Allergy (Verified 07/05/17 13:04) HOME MEDICATIONS: Home Medications Medication Instructions Recorded Albuterol Sulfate Inhaler - 1 - 2 inh PO Q4H 05/11/17 [Ventolin HFA Inhaler -] Furosemide [Lasix] 80 mg PO DAILY 05/11/17 Pregabalin [Lyrica] 100 mg PO DAILY 05/11/17 Salmeterol/Fluticasone [Advair 1 inh PO BID 05/11/17 250Mcg/50Mcg -] Simvastatin 40 mg PO DAILY 05/11/17 Sevelamer Carbonate [Renvela -] 800 mg PO TIDCM tab 08/04/17 Docusate Sodium [Colace] 100 mg PO DAILY 10/16/17 Enoxaparin [Lovenox -] 40 mg SQ DAILY 10/16/17 Quetiapine Fumarate [Seroquel -] 200 mg PO HS 10/16/17 Daptomycin [Cubicin (Restricted 850 mg IVPB DAILY@1400 vial 10/27/17 To Id) -] Pantoprazole Sodium [Protonix -] 20 mg PO BID tablet.ec 10/27/17 Zolpidem Tartrate [Ambien] 5 mg PO HS PRN tablet MDD 1 10/27/17 oxyCODONE HCL [Roxicodone -] 10 mg PO Q4H PRN tablet MDD 6 10/27/17 REVIEW OF SYSTEMS CONSTITUTIONAL: Absent: fever, chills, diaphoresis, generalized weakness, malaise, loss of appetite, weight change HEENT: Absent: rhinorrhea, nasal congestion, throat pain, throat swelling, difficulty swallowing, mouth swelling, ear pain, eye pain, visual changes CARDIOVASCULAR: Absent: chest pain, syncope, palpitations, irregular heart rate, lightheadedness , peripheral edema RESPIRATORY: Absent: cough, shortness of breath, dyspnea with exertion, orthopnea, wheezing, stridor, hemoptysis GASTROINTESTINAL: abdominal pain, constipation Absent: abdominal distension, nausea, vomiting, diarrhea, melena, hematochezia GENITOURINARY: Absent: dysuria, frequency, urgency, hesitancy, hematuria, flank pain, genital pain MUSCULOSKELETAL: Absent: myalgia, arthralgia, joint swelling, back pain, neck pain SKIN: Absent: rash, itching, pallor HEMATOLOGIC/IMMUNOLOGIC: Absent: easy bleeding, easy bruising, lymphadenopathy, frequent infections ENDOCRINE: Absent: unexplained weight gain, unexplained weight loss, heat intolerance, cold intolerance NEUROLOGIC: Absent: headache, focal weakness or paresthesias, dizziness, unsteady gait, seizure, mental status changes, bladder or bowel incontinence PSYCHIATRIC: Absent: anxiety, depression, suicidal or homicidal ideation, hallucinations. PHYSICAL EXAMINATION Vital Signs - 24 hr 11/07/17 11/07/17 17:00 21:13 Temperature 98.0 F Pulse Rate 93 H Pulse Rate [ 87 Right] Respiratory 16 16 Rate Blood Pressure 122/65 Blood Pressure 132/67 [Left] O2 Sat by Pulse 95 99 Oximetry (%) GENERAL: Severe Obesity, awake, alert, and fully oriented, in no acute distress. HEAD: Normal with no signs of trauma. EYES: Pupils equal, round and reactive to light, extraocular movements intact, sclera anicteric, conjunctiva clear. No lid lag. EARS, NOSE, THROAT: Ears normal, nares patent, oropharynx clear without exudates. Moist mucous membranes. NECK: Normal range of motion, supple without lymphadenopathy, JVD, or masses. LUNGS: Breath sounds equal, clear to auscultation bilaterally. No wheezes, and no crackles. No accessory muscle use. HEART: Regular rate and rhythm, normal S1 and S2 without murmur, rub or gallop. Permacath LCW ABDOMEN: Soft, not distended, normoactive bowel sounds, no guarding, no rebound , no masses. No hepatomegaly or splenomegaly.Generalized tenderness DSD to mid abdomen/umbilical MUSCULOSKELETAL: Normal range of motion at all joints. No bony deformities or tenderness. No CVA tenderness. UPPER EXTREMITIES: 2+ pulses, warm, well-perfused. No cyanosis. No clubbing. No peripheral edema. LOWER EXTREMITIES: 2+ pulses, warm, well-perfused. No calf tenderness. No peripheral edema. NEUROLOGICAL: Cranial nerves II-XII intact. Normal speech. Gait not observed. PSYCHIATRIC: Cooperative. Good eye contact. Appropriate mood and affect. SKIN: Warm, dry, normal turgor, no rashes noted, normal capillary refill. DSD to abdominal wound not draining Laboratory Results - last 24 hr 11/07/17 11/07/17 20:18 20:18 WBC 2.8 L RBC 2.80 L Hgb 8.9 L Hct 26.5 L MCV 94.7 MCH 31.8 MCHC 33.5 RDW 15.1 Plt Count 131 L MPV 9.1 Neutrophils % 57.8 Lymphocytes % 28.6 Monocytes % 9.2 Eosinophils % 3.6 D Basophils % 0.8 Sodium 134 L Potassium 4.5 Chloride 103 Carbon Dioxide 23 Anion Gap 8 BUN 35 H Creatinine 8.8 H* Creat Clearance w eGFR 4.75 Random Glucose 77 Calcium 8.1 L Total Bilirubin 0.3 D AST 47 H ALT 18 Alkaline Phosphatase 71 Total Protein 6.5 Albumin 1.6 L ASSESSMENT/PLAN: 52 y/o woman Placed in Observation for Non-working Permacath. Problem List - Problem (1) Dialysis catheter clot or failure Assessment/Plan: - Appreciate Vascular Consult Code(s): LFK0430 - (2) ESRD (end stage renal disease) on dialysis Assessment/Plan: -- ESRD( , , Mon) - Appreciate Nephrology Consult Code(s): N18.6 - END STAGE RENAL DISEASE; Z99.2 - DEPENDENCE ON RENAL DIALYSIS (3) Wound dehiscence Assessment/Plan: - Continue wound care BID Code(s): T81.30XA - DISRUPTION OF WOUND, UNSPECIFIED, INITIAL ENCOUNTER (4) DVT prophylaxis Assessment/Plan: - Code(s): CBZ5065 - Visit type - Emergency Visit Emergency Visit: Yes ED Registration Date: 11/07/17 Care time: The patient presented to the Emergency Department on the above date and was hospitalized for further evaluation of their emergent condition. - New Patient This patient is new to me today: Yes Date on this admission: 05/02/18 - Critical Care Critical Care patient: No Hospitalist Screening - Colonoscopy Questionnaire Colonoscopy Questionnaire: Colonoscopy Questionnaire - Patient: 50 - 75 years old and never had a screening colonoscopy: Unknown History of colon or rectal polyps, or CA: Unknown History of IBD, Crohn's disease or UC: Unknown History of abdominal radiation therapy as a child: Unknown - Relative: 1 with colon or rectal CA, or polyps at age 60 or younger: Unknown Colon or rectal CA diagnosed at age 45 or younger: Unknown Multiple relatives with colon or rectal CA: Unknown - Outcome: Screening Result: Negative Screen
[2017-11-08] MEDS ORDERED: oxyCODONE HCL 5 MG TABLET PO ONE (00:48)
[2017-11-08 05:35] VITALS: BMI 38.7
[2017-11-08 08:04] LABS: BASO % 0.5 % (0-2.0); EOS % 3.7 % (0-4.5); HEMOGLOBIN 8.6 GM/dL (10.7-15.3); LYMPH % 30.4 % (8-40); MCH 31.4 pg (25.7-33.7); MCHC 33.2 g/dl (32.0-36.0); MEAN CELL VOLUME 94.6 fl (80-96); MEAN PLT VOLUME 9.1 fl (7.5-11.1); MONO % 9.1 % (3.8-10.2); NEUT % 56.3 % (42.8-82.8); PLATELET COUNT 130 K/MM3 (134-434); RBC 2.74 M/mm3 (3.60-5.2); RDW 14.8 % (11.6-15.6); WHITE BLOOD COUNT 2.8 K/mm3 (4.0-10.0)
[2017-11-08 08:47] LABS: ANION GAP 9 (8-16); BLOOD UREA NITROGEN 38 mg/dL (7-18); CALCIUM 8.2 mg/dL (8.5-10.1); CHLORIDE 103 mmol/L (98-107); CO2 25 mmol/L (21-32); GLUCOSE,RANDOM 66 mg/dL (74-106); MAGNESIUM 1.7 mg/dL (1.8-2.4); PHOSPHOROUS 5.3 mg/dL (2.5-4.9); POTASSIUM 4.3 mmol/L (3.5-5.1); SODIUM 137 mmol/L (136-145)
--- NOTE | 2017-11-08 09:32 | PN ---
Progress Note (short form) - Note Progress Note: Readmitted for non-working permacath-recenlty placed on~ 4..18. as per pt at HD they filled it up with medicine but it failed to work afterwards , so she wqas sent to er for eval. would be finishing her daptomycin for VRE and MRSA bacteremia this week. otherwise offers no complaints. CBC, BMP 11/08/17 07:40 11/08/17 07:40 Vital Signs Period Temp Pulse Resp BP Sys/Chan Pulse Ox Last 24 Hr 97.6 F-98.0 F 78-93 16-20 122-143/65-85 95-99 S1S2 RRR lungs cta abd surgical incision has new, shallow skin opening legs tr edema awake alert IMP non-functionnig HD catheter ESRD due to polycystic kidneys morbid obesity post traumatic stress disorder sukhdev history of failed AV grafts, catheter occlusion and catheter bacteremia Plan vascular follow up for eval HD once access is obtained will also request heme eval for hypercoagulable work up should do labs during HD-pt is very poor access also had long discussion with patient regarding poor prognosis
[2017-11-08 10:13] LABS: CREATININE 9.4 mg/dL (0.55-1.02)
--- NOTE | 2017-11-08 10:26 | EKG ---
Test Reason : Blood Pressure : / mmHG Vent. Rate : 081 BPM Atrial Rate : 081 BPM P-R Int : 190 ms QRS Dur : 094 ms QT Int : 404 ms P-R-T Axes : 059 010 052 degrees QTc Int : 469 ms NORMAL SINUS RHYTHM NONSPECIFIC T WAVE ABNORMALITY PROLONGED QT ABNORMAL ECG WHEN COMPARED WITH ECG OF 31-OCT-2017 17:58, NO SIGNIFICANT CHANGE WAS FOUND Confirmed by ЕКАТЕРИНА VALE, YAW ([id number]) on 11/08/2017 10:26:17 AM Referred By: Confirmed By:YAW WILLAMS MD
[2017-11-08] MEDS: ALBUTEROL SO4 18 GM HFA INHALER IH SCH ×4 (10:30→22:17)
--- NOTE | 2017-11-08 10:37 | SPA.PREOP ---
- PRE-OP NOTE Dx: ESRD on HD Planned Procedure: permacath exchange Surgeon: Wilmer Crabtree Consent: to be obtained by the surgeon after all risks, benefits and alternatives have been discussed with patient and/or HCP. Opportunity for questions. Last Vital Signs Temp Pulse Resp BP Pulse Ox 97.6 F 78 18 143/84 97 11/08/17 05:25 11/08/17 05:25 11/08/17 08:00 11/08/17 05:25 11/08/17 08:00 Lab Results WBC 2.8 K/mm3 (4.0-10.0) L 11/08/17 07:40 RBC 2.74 M/mm3 (3.60-5.2) L 11/08/17 07:40 Hgb 8.6 GM/dL (10.7-15.3) L 11/08/17 07:40 Hct 26.0 % (32.4-45.2) L 11/08/17 07:40 MCV 94.6 fl (80-96) 11/08/17 07:40 MCHC 33.2 g/dl (32.0-36.0) 11/08/17 07:40 RDW 14.8 % (11.6-15.6) 11/08/17 07:40 Plt Count 130 K/MM3 (134-434) L 11/08/17 07:40 Sodium 137 mmol/L (136-145) 11/08/17 07:40 Potassium 4.3 mmol/L (3.5-5.1) 11/08/17 07:40 Chloride 103 mmol/L (98-107) 11/08/17 07:40 Carbon Dioxide 25 mmol/L (21-32) 11/08/17 07:40 Anion Gap 9 (8-16) 11/08/17 07:40 BUN 38 mg/dL (7-18) H 11/08/17 07:40 Creatinine 9.4 mg/dL (0.55-1.02) H* 11/08/17 07:40 Random Glucose 66 mg/dL (74-106) L 11/08/17 07:40 Calcium 8.2 mg/dL (8.5-10.1) L 11/08/17 07:40 Problem List - Problems (1) ESRD (end stage renal disease) on dialysis Assessment/Plan: 1. Make NPO after midnight except po meds 2. GI/DVT PPX 3. Medical optimization / clearance Code(s): N18.6 - END STAGE RENAL DISEASE; Z99.2 - DEPENDENCE ON RENAL DIALYSIS Visit type - Case Type Case Type: ED Admission - Emergency Emergency Visit: Yes ED Registration Date: 11/07/17 Care time: The patient presented to the Emergency Department on the above date and was hospitalized for further evaluation of their emergent condition. - New patient This patient is new to me today: Yes Date on this admission: 11/08/17
[2017-11-08] MEDS: FUROSEMIDE 40 MG TABLET (FP) PO SCH (11:56)
[2017-11-08] MEDS: ENOXAPARIN NA (PORCINE) 40 MG/0.4 ML DISP.SYRIN SQ SCH (11:57)
[2017-11-08] MEDS: DOCUSATE SODIUM 100 MG CAPSULE (FP) PO SCH (11:57)
[2017-11-08] MEDS: PANTOPRAZOLE 20 MG TABLET (FP) PO SCH ×2 (11:57→22:17)
[2017-11-08] MEDS: oxyCODONE HCL 5 MG TABLET PO PRN (12:32)
--- NOTE | 2017-11-08 12:53 | CONSULT ---
Consult Consult Specialty:: Nephrology Reason for Consultation:: ESRD - History of Present Illness Chief Complaint: sent in for non functioning catheter History of Present Illness: Pt is a 52 year old female with pmhx of ESRD who was sent in for obstructed permacath. She is awake and alert. She denies shortness of breath. She last had a full treatment on Monday. She has been getting HD in [facility] dialysis as she is on antibiotics in the rehab facility. - History Source History Provided By: Patient, Medical Record - Past Medical History Cardio/Vascular: Yes: HTN, Other (obesity) Pulmonary: Yes: Asthma, Sleep Apnea (on CPAP at home) Gastrointestinal: Yes: Constipation (chronic on opioids), Diverticulosis, GERD Renal/: Yes: Renal Failure (ESRD on HD for 4 years due to polycystic disease) , Hemodialysis Psych: Yes: Anxiety, Other (post traumatic stress disorder) Musculoskeletal: Yes: Chronic low back pain (on lyrica and percocet at home) Endocrine: Yes: Diabetes Mellitus, Hyperparathyroidism - Past Surgical History Past Surgical History: Yes: AV Fistula/Graft (R arm), Hernia Repair (x3) - Alcohol/Substance Use Hx Alcohol Use: No - Smoking History Smoking history: Current every day smoker Have you smoked in the past 12 months: Yes Aproximately how many cigarettes per day: 4 - Social History Usual Living Arrangement: With Child ADL: Support Services (has an aid now, has 2 kids 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) History of Recent Travel: No Home Medications - Allergies Allergies/Adverse Reactions: Allergies Allergy/AdvReac Type Severity Reaction Status Date / Time No Known Allergies Allergy Verified 07/05/17 13:04 - Home Medications Home Medications: Ambulatory Orders Albuterol Sulfate Inhaler - [Ventolin HFA Inhaler -] 1 - 2 inh PO Q4H 05/11/17 Furosemide [Lasix] 80 mg PO DAILY 05/11/17 Pregabalin [Lyrica] 100 mg PO DAILY 05/11/17 Salmeterol/Fluticasone [Advair 250Mcg/50Mcg -] 1 inh PO BID 05/11/17 Simvastatin 40 mg PO DAILY 05/11/17 Sevelamer Carbonate [Renvela -] 800 mg PO TIDCM tab 08/04/17 Docusate Sodium [Colace] 100 mg PO DAILY 10/16/17 Enoxaparin [Lovenox -] 40 mg SQ DAILY 10/16/17 Quetiapine Fumarate [Seroquel -] 200 mg PO HS 10/16/17 Daptomycin [Cubicin (Restricted To Id) -] 850 mg IVPB DAILY@1400 vial Pantoprazole Sodium [Protonix -] 20 mg PO BID tablet.ec 10/27/17 Zolpidem Tartrate [Ambien] 5 mg PO HS PRN tablet MDD 1 10/27/17 oxyCODONE HCL [Roxicodone -] 10 mg PO Q4H PRN tablet MDD 6 10/27/17 Family Disease History - Family Disease History Family Disease History: Other: Mother (polycystic disease, CVA, brain aneurysm) , Son, Daughter Review of Systems - Review of Systems Constitutional: reports: No Symptoms Eyes: reports: No Symptoms HENT: reports: No Symptoms Neck: reports: No Symptoms Cardiovascular: reports: No Symptoms Respiratory: reports: No Symptoms Gastrointestinal: reports: No Symptoms Genitourinary: reports: No Symptoms Musculoskeletal: reports: No Symptoms Integumentary: reports: No Symptoms Neurological: reports: No Symptoms Endocrine: reports: No Symptoms Hematology/Lymphatic: reports: No Symptoms Psychiatric: reports: No Symptoms Physical Exam Vital Signs: Vital Signs Temperature 98 F 11/08/17 10:00 Pulse Rate 84 11/08/17 10:00 Respiratory Rate 20 11/08/17 10:00 Blood Pressure 133/85 11/08/17 10:00 O2 Sat by Pulse Oximetry (%) 97 11/08/17 08:00 Constitutional: Yes: Calm Eyes: Yes: Conjunctiva Clear HENT: Yes: Atraumatic Cardiovascular: Yes: S1, S2 Respiratory: Yes: CTA Bilaterally Gastrointestinal: Yes: Soft, Abdomen, Obese Renal/: Yes: WNL Musculoskeletal: Yes: WNL Edema: No Integumentary: Yes: Tattoos Neurological: Yes: Oriented Psychiatric: Yes: Oriented Labs: CBC, BMP 11/08/17 07:40 11/08/17 07:40 Laboratory Tests 11/07/17 11/07/17 11/08/17 20:18 20:18 07:40 WBC 2.8 L Hgb 8.9 L 8.6 L Sodium 134 L Potassium Chloride Carbon Dioxide Anion Gap BUN 35 H Creatinine 8.8 H* 11/08/17 07:40 WBC Hgb Sodium 137 Potassium 4.3 Chloride 103 Carbon Dioxide 25 Anion Gap 9 BUN 38 H Creatinine 9.4 H* Problem List - Problems (1) Dialysis catheter clot or failure Code(s): [id number] - (2) ESRD (end stage renal disease) on dialysis Code(s): N18.6 - END STAGE RENAL DISEASE; Z99.2 - DEPENDENCE ON RENAL DIALYSIS Assessment/Plan Current Medications Generic Name Dose Route Start Last Admin Trade Name Freq PRN Reason Stop Dose Admin Albuterol Sulfate 2 puff 11/08/17 10:30 Ventolin Hfa Inhaler - IH Q4HWA [facility] Daptomycin 850 mg 11/08/17 14:00 Cubicin (Restricted To Id) - IVPB DAILY@1400 [facility] Protocol Docusate Sodium 100 mg 11/08/17 10:00 11/08/17 11:57 Colace - PO 100 mg DAILY DAVID Administration Enoxaparin Sodium 40 mg 11/08/17 10:00 11/08/17 11:57 Lovenox - SQ 40 mg DAILY [facility] Administration Furosemide 80 mg 11/08/17 10:30 11/08/17 11:56 Lasix - PO 80 mg DAILY DAVID Administration Oxycodone HCl 10 mg 11/08/17 09:30 11/08/17 12:32 Roxicodone - PO 10 mg Q4H PRN Administration PAIN LEVEL 4-6 Pantoprazole Sodium 20 mg 11/08/17 10:00 11/08/17 11:57 Protonix - PO 20 mg BID DAVID Administration Quetiapine Fumarate 200 mg 11/08/17 22:00 Seroquel - PO HS [facility] Impression 1. ESRD 2. permacath malfunction 3. sleep apnea 4. htn 5. dm 6. asthma 7. obesity 8. anxiety 9. hx of acute psychosis/delusions Plan - vascular input appreciated - pt will have permacath changed - HD tomorrow after permacath - renal diet - will follow - abx per ID
[2017-11-08] MEDS ORDERED: DAPTOmycin 500 MG VIAL (RESTRICTED TO ID) IVPB SCH (14:00)
[2017-11-08] MEDS ORDERED: QUEtiapine FUMARATE 100 MG TABLET (FP) PO SCH (22:00)
[2017-11-08] MEDS: NYSTATIN 100,000 UNIT/GM TOPICAL CREAM 15 GM TUBE TP SCH (22:17)
--- NOTE | 2017-11-08 23:21 | CONSULT ---
Consult Consult Specialty:: Hematology - History of Present Illness History of Present Illness: 52 y/o woman PMH ESRD, Abdominal Wound (MRSA/VREF). Who presents to the ED for non-working permacath. Patient was at the dialysis center today, and could not be dialyzed. Patient reports feeling tired. Patient denies fever, chills, cough , SOB, CP, N/V/D. h/o recurrent AVG occulusion and now a new permacath occlusion. Hematology called for hypercoagulable w/u pt seen and examined. denies any family hx of blood clots no hx of miscarriages - History Source History Provided By: Patient, Medical Record - Past Medical History Cardio/Vascular: Yes: HTN, Other (obesity) Pulmonary: Yes: Asthma, Sleep Apnea (on CPAP at home) Gastrointestinal: Yes: Constipation (chronic on opioids), Diverticulosis, GERD Renal/: Yes: Renal Failure (ESRD on HD for 4 years due to polycystic disease) , Hemodialysis Psych: Yes: Anxiety, Other (post traumatic stress disorder) Musculoskeletal: Yes: Chronic low back pain (on lyrica and percocet at home) Endocrine: Yes: Diabetes Mellitus, Hyperparathyroidism - Past Surgical History Past Surgical History: Yes: AV Fistula/Graft (R arm), Hernia Repair (x3) - Alcohol/Substance Use Hx Alcohol Use: No - Smoking History Smoking history: Current every day smoker Have you smoked in the past 12 months: Yes Aproximately how many cigarettes per day: 4 - Social History Usual Living Arrangement: With Child ADL: Support Services (has an aid now, has 2 kids 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) History of Recent Travel: No Home Medications - Allergies Allergies/Adverse Reactions: Allergies Allergy/AdvReac Type Severity Reaction Status Date / Time No Known Allergies Allergy Verified 07/05/17 13:04 - Home Medications Home Medications: Ambulatory Orders Albuterol Sulfate Inhaler - [Ventolin HFA Inhaler -] 1 - 2 inh PO Q4H 05/11/17 Furosemide [Lasix] 80 mg PO DAILY 05/11/17 Pregabalin [Lyrica] 100 mg PO DAILY 05/11/17 Salmeterol/Fluticasone [Advair 250Mcg/50Mcg -] 1 inh PO BID 05/11/17 Simvastatin 40 mg PO DAILY 11/02/17 Sevelamer Carbonate [Renvela -] 800 mg PO TIDCM tab 08/04/17 Docusate Sodium [Colace] 100 mg PO DAILY 10/16/17 Enoxaparin [Lovenox -] 40 mg SQ DAILY 10/16/17 Quetiapine Fumarate [Seroquel -] 200 mg PO HS 10/16/17 Daptomycin [Cubicin (Restricted To Id) -] 850 mg IVPB DAILY@1400 vial Pantoprazole Sodium [Protonix -] 20 mg PO BID tablet.ec 10/27/17 Zolpidem Tartrate [Ambien] 5 mg PO HS PRN tablet MDD 1 10/27/17 oxyCODONE HCL [Roxicodone -] 10 mg PO Q4H PRN tablet MDD 6 10/27/17 Family Disease History - Family Disease History Family Disease History: Other: Mother (polycystic disease, CVA, brain aneurysm) , Son, Daughter Physical Exam Vital Signs: Vital Signs Temperature 98 F 11/08/17 10:00 Pulse Rate 84 11/08/17 10:00 Respiratory Rate 20 11/08/17 15:00 Blood Pressure 133/85 11/08/17 10:00 O2 Sat by Pulse Oximetry (%) 97 11/08/17 15:00 Constitutional: Yes: Well Nourished, No Distress, Calm Eyes: Yes: Conjunctiva Clear HENT: Yes: Atraumatic, Normocephalic Neck: Yes: Supple, Trachea Midline Cardiovascular: Yes: Regular Rate and Rhythm Respiratory: Yes: Regular, CTA Bilaterally Gastrointestinal: Yes: Normal Bowel Sounds, Soft, Abdomen, Obese Edema: Yes Edema: LLE: 1+, RLE: 1+ Labs: CBC, BMP 11/08/17 07:40 11/08/17 07:40 Assessment/Plan recurrent AVG occlusion/recent permacath occlusion in a young AA female with vascular risk factors and obesity, recurrent abdominal wound will send hypercoag w/u ( FVL. PTII gene, ATIII, MTHFR, THELMA, PNH, APLS), prudent to r/o mainly APLS in this pt. c/w lovenox prophylactic doses consider adding aspirin 81mg--if no contra-indications. d/w pt in detail
[2017-11-09] MEDS: oxyCODONE HCL 5 MG TABLET PO PRN ×3 (00:53→19:57)
[2017-11-09] MEDS: ALBUTEROL SO4 18 GM HFA INHALER IH SCH ×5 (06:34→21:07)
[2017-11-09] MEDS ORDERED: LIDOCAINE HCL 1%, 10 MG/ML (20ML VIAL) ONE (08:15)
--- NOTE | 2017-11-09 08:45 | PN ---
Progress Note (short form) - Note Progress Note: Readmitted for non-working permacath-recenlty placed on~ 18. Vital Signs Period Temp Pulse Resp BP Sys/Chan Pulse Ox Last 24 Hr 98 F-98.4 F 84-86 18-20 120-133/62-85 93-97 S1S2 RRR lungs cta abd surgical incision has new, shallow skin opening legs tr edema awake alert IMP non-functionnig HD catheter ESRD due to polycystic kidneys morbid obesity post traumatic stress disorder long history of failed AV grafts, catheter occlusion and catheter bacteremia Plan fro OR for catheter replacement today HD once access is obtained daptomycin with HD heme eval for hypercoagulable work up appreciated dc planning
[2017-11-09] MEDS ORDERED: PROPOFOL 20 ML ONE (09:22)
[2017-11-09] MEDS ORDERED: MIDAZOLAM HCL 2 MG/2 ML SINGLE DOSE VIAL ONE (09:22)
[2017-11-09] MEDS ORDERED: LIDOCAINE HCL/PF 2% SDV 5ML VIAL ONE (09:22)
[2017-11-09] MEDS ORDERED: LIDOCAINE HCL 1%, 10 MG/ML (20ML VIAL) INF ONE (09:28)
[2017-11-09] MEDS ORDERED: ONDANSETRON 4 MG/2 ML VIAL IVPUSH PRN (09:49)
[2017-11-09] MEDS ORDERED: SODIUM CHLORIDE 250 ML IV PRN (09:55)
[2017-11-09] MEDS ORDERED: MUPIROCIN CA 2% TOPICAL CREAM 15 GM TUBE TP SCH (10:00)
[2017-11-09] MEDS ORDERED: SODIUM CHLORIDE 1,000 ML IV SCH (10:00)
--- NOTE | 2017-11-09 10:27 | OP ---
DATE OF OPERATION: 11/09/2017 PREOPERATIVE DIAGNOSIS: Malfunctioning left subclavian Perma-Cath. POSTOPERATIVE DIAGNOSIS: Malfunctioning left subclavian Perma-Cath. PROCEDURE: PermCath exchange. SURGEON: Wilmer Jackson DO ANESTHESIA: Fractional. BLOOD LOSS: 5 mL. INDICATIONS: The patient is a 52-year-old female who has a malfunctioning Perma-Cath. The patient cannot be dialyzed through her Perma-Cath and needs Perma-Cath exchange. The patient was consented for the procedure understanding all risks, benefits, and alternatives and then taken to the operating room. DESCRIPTION OF PROCEDURE: Once in the operating room, she was laid on the operating room table in supine manner. The area of the right neck was prepped and draped in sterile surgical manner. We then went in and injected 10 mL of lidocaine 1% around the PermCath exit site. We then went ahead and put mosquito clamp in and dissected out our catheter, and it was freed up from the skin. We then went ahead and placed a 0.035 floppy guidewire under fluoroscopy into the catheter, and the catheter was removed. We then exchanged gloves for sterility and placed new gloves on. We then placed a new 23 Perma-Cath over the guidewire into the vein under fluoroscopy. The guidewire was removed. There was good draw back in the catheter from both ports. Heparinized saline was injected. Then 2000 units of IV heparin was injected into each port. Then 4-0 Biosyn was then used, and 2 simple sutures were placed at the exit site. A 3-0 nylon was used, and the catheter was attached to the skin. Biopatch was placed. Then 4 x 4's and Tegaderms were placed. The patient tolerated the procedure with no complications. The patient was transferred to the PACU in stable condition where a chest x-ray will be ordered. WILMER JACKSON DO OFFICE PROFESSIONAL/[id number]
[2017-11-09] MEDS: PANTOPRAZOLE 20 MG TABLET (FP) PO SCH ×2 (12:03→21:03)
[2017-11-09] MEDS: NYSTATIN 100,000 UNIT/GM TOPICAL CREAM 15 GM TUBE TP SCH ×2 (12:03→21:05)
[2017-11-09] MEDS: ENOXAPARIN NA (PORCINE) 40 MG/0.4 ML DISP.SYRIN SQ SCH (12:03)
[2017-11-09] MEDS: FUROSEMIDE 40 MG TABLET (FP) PO SCH (12:04)
[2017-11-09] MEDS: DOCUSATE SODIUM 100 MG CAPSULE (FP) PO SCH (12:04)
[2017-11-09] MEDS ORDERED: DAPTOmycin 500 MG VIAL (RESTRICTED TO ID) IVPB SCH (14:00)
[2017-11-09] MEDS ORDERED: EPOETIN ALFA 3,000 UNIT/1 ML ML IVPUSH ONE (15:15)
--- NOTE | 2017-11-09 15:25 | PN ---
Progress Note, Physician History of Present Illness: Pt seen and examined at bedside. She had her permacath changed today. - Current Medication List Current Medications: Active Medications Albuterol Sulfate (Ventolin Hfa Inhaler -) 2 puff [facility]H Q4HWA [facility] Docusate Sodium (Colace -) 100 mg PO DAILY [facility] Enoxaparin Sodium (Lovenox -) 40 mg SQ DAILY [facility] Fentanyl (Sublimaze Injection -) 25 mcg IVPUSH [id number] PRN PRN Reason: PAIN-PACU ORDER X 4 DOSES ONLY Furosemide (Lasix -) 80 mg PO DAILY DAVID Sodium Chloride (Normal Saline -) 1,000 mls @ 42 mls/hr IV ASDIR DAVID Last Admin: 11/09/17 12:36 Dose: Not Given Sodium Chloride (Normal Saline -) 250 mls @ 3,000 mls/hr IV PRN PRN PRN Reason: Hypotension during Dialysis Stop: 11/10/17 09:55 Daptomycin 850 mg/ Sodium (Chloride) 100 mls @ 100 mls/hr IVPB Q2D@1600 DAVID PRN Reason: Protocol Mupirocin (Bactroban 2% Cream -) 1 applic TP BID DAVID Nystatin (Mycostatin Cream -) 1 applic TP BID DAVID Ondansetron HCl (Zofran Injection) 4 mg IVPUSH Q6H PRN PRN Reason: NAUSEA AND/OR VOMITING Oxycodone HCl (Roxicodone -) 10 mg PO Q4H PRN PRN Reason: PAIN LEVEL 4-6 Last Admin: 11/09/17 12:39 Dose: 10 mg Pantoprazole Sodium (Protonix -) 20 mg PO BID [facility] Quetiapine Fumarate (Seroquel -) 200 mg PO HS DAVID Sevelamer Carbonate (Renvela -) 800 mg PO TIDCM [facility] - Objective Vital Signs: Vital Signs Temperature 97.9 F 11/09/17 13:45 Pulse Rate 87 11/09/17 13:45 Respiratory Rate 15 11/09/17 14:38 Blood Pressure 137/87 11/09/17 13:45 O2 Sat by Pulse Oximetry (%) 95 11/09/17 14:38 Constitutional: Yes: Calm Eyes: Yes: Conjunctiva Clear HENT: Yes: Atraumatic Neck: Yes: Supple Cardiovascular: Yes: S1, S2 Respiratory: Yes: CTA Bilaterally Gastrointestinal: Yes: Soft Genitourinary: Yes: WNL Musculoskeletal: Yes: WNL Edema: No Integumentary: Yes: Tattoos Neurological: Yes: Oriented Labs: CBC, BMP 11/08/17 07:40 11/08/17 07:40 Problem List - Problems (1) Dialysis catheter clot or failure Code(s): SBH1032 - (2) ESRD (end stage renal disease) on dialysis Code(s): N18.6 - END STAGE RENAL DISEASE; Z99.2 - DEPENDENCE ON RENAL DIALYSIS Assessment/Plan Current Medications Generic Name Dose Route Start Last Admin Trade Name Freq PRN Reason Stop Dose Admin Albuterol Sulfate 2 puff 11/09/17 14:00 Ventolin Hfa Inhaler - IH Q4HWA [facility] Docusate Sodium 100 mg 11/10/17 10:00 Colace - PO DAILY [facility] Enoxaparin Sodium 40 mg 11/10/17 10:00 Lovenox - SQ DAILY [facility] Fentanyl 25 mcg 11/09/17 09:49 Sublimaze Injection - IVPUSH [id number] PRN PAIN-PACU ORDER X 4 DOSES ONLY Furosemide 80 mg 11/10/17 10:00 Lasix - PO DAILY [facility] Sodium Chloride 1,000 mls @ 42 mls/hr 11/09/17 10:00 11/09/17 12:36 Normal Saline - IV Not Given ASDIR [facility] Sodium Chloride 250 mls @ 3,000 mls/hr 11/09/17 09:55 Normal Saline - IV 11/10/17 09:55 PRN PRN Hypotension during Dialysis Daptomycin 850 mg/ Sodium 100 mls @ 100 mls/hr 11/09/17 16:00 Chloride IVPB Q2D@1600 [facility] Protocol Mupirocin 1 applic 11/09/17 22:00 Bactroban 2% Cream - TP BID [facility] Nystatin 1 applic 11/09/17 22:00 Mycostatin Cream - TP BID [facility] Ondansetron HCl 4 mg 11/09/17 09:49 Zofran Injection IVPUSH Q6H PRN NAUSEA AND/OR VOMITING Oxycodone HCl 10 mg 11/09/17 10:02 11/09/17 12:39 Roxicodone - PO 10 mg Q4H PRN Administration PAIN LEVEL 4-6 Pantoprazole Sodium 20 mg 11/09/17 22:00 Protonix - PO BID DAVID Quetiapine Fumarate 200 mg 11/09/17 22:00 Seroquel - PO HS DAVID Sevelamer Carbonate 800 mg 11/09/17 17:30 Renvela - PO TIDCM DAVID Impression 1. ESRD 2. permacath malfunction 3. sleep apnea 4. htn 5. dm 6. asthma 7. obesity 8. anxiety 9. hx of acute psychosis/delusions Plan - will arrange for HD today - heme onc input appreciated, follow workup - renal diet - will follow - abx per ID
--- NOTE | 2017-11-09 15:48 | PN ---
Progress Note (short form) - Note Progress Note: ID Consult dictated MRSA Bacteremia ESRD Completing 4w course daptomycin
[2017-11-09] MEDS ORDERED: SODIUM CHLORIDE IVPB SCH (16:00)
[2017-11-09] MEDS ORDERED: DAPTOMYCIN IVPB SCH (16:00)
--- NOTE | 2017-11-09 16:58 | PATH ---
Surgical Pathology Report Patient Name: RENEE ADAN [facility]. Rec. #: [id number] /Age/Gender: 1965 (Age: 52) / F Account: [id number] Location: 4 PEDS/ADOL Taken: 11/09/2017 Received: 11/09/2017 Reported: 11/09/2017 Physicians: Walter Peralta M.D. Specimen(s) Received REMOVED PERMACATH Clinical History ESRD-permacath is clotted Final Diagnosis PERMACATH, REMOVAL: PERMACATH. MACROSCOPIC DIAGNOSIS. Electronically Signed Alma La M.D. Gross Description Received fresh labeled "removed permacath," is a 40 cm in length double lumen catheter. No soft tissue is present. No sections are submitted, gross only. DL/11/09/2017 saudi/11/09/2017
[2017-11-09] MEDS: SEVELAMER CARBONATE 800 MG TAB (FP) PO SCH (17:38)
[2017-11-09] MEDS: MUPIROCIN CA 2% TOPICAL CREAM 15 GM TUBE TP SCH (21:06)
[2017-11-09] MEDS ORDERED: QUEtiapine FUMARATE 100 MG TABLET (FP) PO SCH (22:00)
[2017-11-10] MEDS: ALBUTEROL SO4 18 GM HFA INHALER IH SCH ×2 (06:57→09:13)
[2017-11-10] MEDS ORDERED: PT OWN MED DRAWER 7, Y5N ONE (08:29)
[2017-11-10 08:56] VITALS: BP 135/69; PULSE 93; TEMP 98.4
--- NOTE | 2017-11-10 09:00 | DS ---
Physical Examination Vital Signs: Vital Signs Temperature 98.4 F 11/10/17 08:52 Pulse Rate 93 H 11/10/17 08:52 Respiratory Rate 16 11/10/17 08:52 Blood Pressure 135/69 11/10/17 08:52 O2 Sat by Pulse Oximetry (%) 95 11/10/17 06:00 Constitutional: Yes: Calm, Obese HENT: Yes: Normocephalic Neck: Yes: Trachea Midline Cardiovascular: Yes: Regular Rate and Rhythm Respiratory: Yes: CTA Bilaterally Gastrointestinal: Yes: Normal Bowel Sounds, Soft Musculoskeletal: Yes: WNL Extremities: Yes: WNL Edema: LLE: Trace, RLE: Trace Peripheral Pulses WNL: Yes Labs: CBC, BMP 11/08/17 07:40 11/08/17 07:40 Discharge Summary Reason For Visit: END - STAGE RENAL DISEASE DIALYSIS CATHERTER CLOT Current Active Problems DVT prophylaxis (Acute) Dialysis catheter clot or failure (Acute) ESRD (end stage renal disease) on dialysis (Acute) Hospital Course: 52 yo lady with h/o ESRD due to polycystic kidney ds., morbid obesity, borderline DM, admitted for non functioning permacath. Catheter has been replaced in OR without issues, has been dialysed afterwards. She is medically stable to dc home. Of note she is completing her iv damtopmycin after each HD until 5..18 for MRSA and VRE bacteremia. Can finish as outpt. - Instructions Referrals: Elvis Lau MD [Primary Care Provider] - - Home Medications Comprehensive Discharge Medication List: Ambulatory Orders Albuterol Sulfate Inhaler - [Ventolin HFA Inhaler -] 1 - 2 inh PO Q4H 05/11/17 Furosemide [Lasix] 80 mg PO DAILY 05/11/17 Pregabalin [Lyrica] 100 mg PO DAILY 05/11/17 Salmeterol/Fluticasone [Advair 250Mcg/50Mcg -] 1 inh PO BID 05/11/17 Simvastatin 40 mg PO DAILY 05/11/17 Sevelamer Carbonate [Renvela -] 800 mg PO TIDCM tab 08/04/17 Docusate Sodium [Colace] 100 mg PO DAILY 10/16/17 Enoxaparin [Lovenox -] 40 mg SQ DAILY 10/16/17 Quetiapine Fumarate [Seroquel -] 200 mg PO HS 10/16/17 Daptomycin [Cubicin (Restricted To Id) -] 850 mg IVPB DAILY@1400 vial Pantoprazole Sodium [Protonix -] 20 mg PO BID tablet.ec 10/27/17 Zolpidem Tartrate [Ambien] 5 mg PO HS PRN tablet MDD 1 10/27/17 oxyCODONE HCL [Roxicodone -] 10 mg PO Q4H PRN tablet MDD 6 10/27/17
[2017-11-10] MEDS: oxyCODONE HCL 5 MG TABLET PO PRN (09:11)
[2017-11-10] MEDS: SEVELAMER CARBONATE 800 MG TAB (FP) PO SCH (09:11)
[2017-11-10] MEDS: PANTOPRAZOLE 20 MG TABLET (FP) PO SCH (09:12)
[2017-11-10] MEDS: MUPIROCIN CA 2% TOPICAL CREAM 15 GM TUBE TP SCH (09:51)
[2017-11-10] MEDS: NYSTATIN 100,000 UNIT/GM TOPICAL CREAM 15 GM TUBE TP SCH (09:52)
[2017-11-10] MEDS ORDERED: FUROSEMIDE 40 MG TABLET (FP) PO SCH (10:00)
[2017-11-10] MEDS ORDERED: ENOXAPARIN NA (PORCINE) 40 MG/0.4 ML DISP.SYRIN SQ SCH (10:00)
[2017-11-10] MEDS ORDERED: DOCUSATE SODIUM 100 MG CAPSULE (FP) PO SCH (10:00)
--- NOTE | 2017-11-10 15:16 | CONS ---
DATE OF CONSULTATION: DATE OF DICTATION: 11/10/2017 HISTORY OF PRESENT ILLNESS: The patient is a 52-year-old female with history of end-stage renal disease on hemodialysis, recently admitted to [facility] with MRSA bacteremia, now seen in followup. She was sent in to the hospital because of an occluded PermCath. The patient had a recent history of MRSA bacteremia secondary to catheter source. Catheter was removed. She was discharged to complete a 4-week course of IV antibiotic therapy with daptomycin dosed after hemodialysis. Her last set of positive blood cultures were October 17, 2017. The occluded catheter was removed, and a new catheter was placed for hemodialysis. She has no complaints of pain. She denies any fever or chills. She has been tolerating the daptomycin without adverse reaction. PAST MEDICAL HISTORY: Positive for end-stage renal disease on hemodialysis, hypertension, obstructive sleep apnea, asthma, anxiety, chronic low back pain, diabetes mellitus, hyperparathyroidism. PAST SURGICAL HISTORY: Status post AV fistula right arm and hernia repairs. ALLERGIES: No known allergies. LABORATORY DATA: White count 2.8, hematocrit 26.0, platelet count 130. BUN 38, creatinine 9.4. PHYSICAL EXAMINATION: General: She is awake and alert. Not acutely toxic appearing. Obese. Vital signs: Afebrile. Temperature 97.9, blood pressure 137/87, pulse 87 regular, respirations 20 per minute. HEENT: Sclerae anicteric. Cardiovascular: Heart sounds S1, S2. Respiratory: Lungs clear. Abdomen: Obese, soft, nontender. Extremities: Positive for edema. Dialysis catheter present left chest. IMPRESSION: 1. Methicillin resistant Staphylococcus aureus bacteremia on therapy. 2. End-stage renal disease. 3. Status post removal of occluded dialysis catheter. Complete 4 week course of daptomycin. Her last positive blood culture was from October 17. She is currently day 23. She needs approximately another 1 week of daptomycin to complete her course of therapy. SONYA JOHNS M.D. [id number]
[2017-11-14 03:38] LABS: ANTITHROMBIN ANTIGEN 87 % (72-124)
--- NOTE | 2017-11-14 18:42 | PATH ---
Surgical Pathology Report Patient Name: RENEE ADAN Med. Rec. #: [id number] /Age/Gender: 1965 (Age: 52) / F Account: [id number] Location: [facility] PEDS/ADOL Taken: 11/09/2017 Received: 11/10/2017 Reported: 11/14/2017 Physicians: Dania Krishna M.D. Specimen(s) Received PERIPHERAL BLOOD Clinical History Recurrent arterial clot Final Diagnosis PAROXYSMAL NOCTURNAL HEMOGLOBINURIA ASSAY BY FLOW performed and interpreted at [facility] laboratory, [facility] ([id number]) shows the following: INTERPRETATION: No phenotypic evidence of Paroxysmal Nocturnal Hemoglobulinuria (PNH). See [facility] report for additional details ([id number]) Electronically Signed Alma La M.D.
[2017-11-21 00:07] LABS: APTT 27.5 sec (.); B2-GLYCOPROTEIN IGA <10 SAU (.); B2-GLYCOPROTEIN IGG <10 SGU (.); B2-GLYCOPROTEIN IGM <10 SMU (.); CARDIOLIPIN AB IGA <10 APL (.); DRVVT RATIO 1.1 ratio (.); DRVVT SCREEN SECONDS 50.2 sec (.); HEXAGONAL PHOSPHOLIPID NEUTRAL 8 sec (.)
== END 2017-11-10 11:09 | disposition home or self-care (01) | DRG 314 ==
LOC: JER 16:56 → JERBED 22:46 → J4S 11-08 06:11 → OBSVTOIN 11-09 14:38
PROVIDERS: ADMIT Internal Medicine; ATTEND Internal Medicine
PROC: 05H633Z Insertion of Infusion Device into Left Subclavian Vein, Percutaneous Approach (ICD-10-PCS; 2017-11-09)
PROC: B517YZA Fluoroscopy of Left Subclavian Vein using Other Contrast, Guidance (ICD-10-PCS; 2017-11-09)
PROC: 5A1D70Z Performance of Urinary Filtration, Intermittent, Less than 6 Hours Per Day (ICD-10-PCS; 2017-11-09)
PROC: 05PY33Z Removal of Infusion Device from Upper Vein, Percutaneous Approach (ICD-10-PCS; principal; 2017-11-09 15:30)
DX: T82.41XA Breakdown (mechanical) of vascular dialysis catheter, initial encounter (principal); N18.6 End stage renal disease; I12.0 Hypertensive chronic kidney disease with stage 5 chronic kidney disease or end stage renal disease; Y84.8 Other medical procedures as the cause of abnormal reaction of the patient, or of later complication, without mention of misadventure at the time of the procedure; E11.22 Type 2 diabetes mellitus with diabetic chronic kidney disease; N28.1 Cyst of kidney, acquired; G47.30 Sleep apnea, unspecified; E66.8 Other obesity; Z68.38 Body mass index [BMI] 38.0-38.9, adult; F41.8 Other specified anxiety disorders; F43.10 Post-traumatic stress disorder, unspecified; J45.909 Unspecified asthma, uncomplicated; K21.9 Gastro-esophageal reflux disease without esophagitis; K57.90 Diverticulosis of intestine, part unspecified, without perforation or abscess without bleeding; M54.5 Low back pain; E21.3 Hyperparathyroidism, unspecified; K59.09 Other constipation; F17.210 Nicotine dependence, cigarettes, uncomplicated; D63.1 Anemia in chronic kidney disease; Z99.2 Dependence on renal dialysis
CPT/HCPCS: 36415; 71045-TC-FY; 76000-TC-FY; 80048; 80053; 81240; 81241; 81291; 82962; 83735; 84100; 85025; 85300; 85301; 85597; 85730; 86146; 86147; 88300-TC; 93005; 93010; 94760; 99282-25; G0378; J0878; J0885; J1644

== ENCOUNTER 2017-11-16 17:47 | Inpatient (IN) | payer OTHER ==
--- NOTE | 2017-11-16 17:54 | PDOC ---
Rapid Medical Evaluation Time Seen by Provider: 11/16/17 17:51 Medical Evaluation: Allergies Allergy/AdvReac Type Severity Reaction Status Date / Time No Known Allergies Allergy Verified 11/16/17 17:50 11/16/17 17:51 Pt c/o: clotted lt hemocath, no hd since monday, no complaints Pt on exam: vss Pt ordered for: cbc, comp, ekg Pt to proceed to the ED Discharge Disposition - Diagnosis Clotted vascular catheter, ESRD (end stage renal disease) - Referrals - Patient Instructions - Post Discharge Activity
[2017-11-16 17:59] VITALS: BMI 39.1
--- NOTE | 2017-11-16 18:05 | PDOC ---
History of Present Illness - General Chief Complaint: Weakness Stated Complaint: PCP SENT/DIALYSIS Time Seen by Provider: 11/16/17 17:51 - History of Present Illness Initial Comments: 11/16/17 18:00 Ms. Marlena Rubio is a 52 yo female w/ pmh of obesity, HTN, chronic back pain, chronic abdominal wound, ESRD 2/2 polycystic kidney disease with T/R/S dialysis who presents from dialysis as they were not successful in using her catheter today. She reports she had a new catheter placed recently after she was admitted 11/07 for non-functioning permacath with discharge 11/10. She was last dialyzed Monday but skipped her Monday session as she had a fall that morning and didn't feel up to going in. She also reports current abdominal pain after a surgery for bowel problems. The patient denies chest pain, shortness of breath, headache and dizziness. Denies fever, chills, nausea, vomit, diarrhea and constipation. Denies dysuria, frequency, urgency and hematuria. Allergies: NKDA Past History - Past Medical History Allergies/Adverse Reactions: Allergies Allergy/AdvReac Type Severity Reaction Status Date / Time No Known Allergies Allergy Verified 11/16/17 17:50 Home Medications: Ambulatory Orders Albuterol Sulfate Inhaler - [Ventolin HFA Inhaler -] 1 - 2 inh PO Q4H 05/11/17 Furosemide [Lasix] 80 mg PO DAILY 05/11/17 Pregabalin [Lyrica] 100 mg PO DAILY 05/11/17 Salmeterol/Fluticasone [Advair 250Mcg/50Mcg -] 1 inh PO BID 05/11/17 Simvastatin 40 mg PO DAILY 05/11/17 Sevelamer Carbonate [Renvela -] 800 mg PO TIDCM tab 08/04/17 Docusate Sodium [Colace] 100 mg PO DAILY 10/16/17 Quetiapine Fumarate [Seroquel -] 200 mg PO HS 10/16/17 Daptomycin [Cubicin (Restricted To Id) -] 850 mg IVPB DAILY@1400 vial Pantoprazole Sodium [Protonix -] 20 mg PO BID tablet.ec 10/27/17 oxyCODONE HCL [Roxicodone -] 10 mg PO Q4H PRN tablet MDD 6 10/27/17 Aspirin Coated [Ecotrin -] 81 mg PO DAILY #30 tablet.ec 11/10/17 Daptomycin [Cubicin (Restricted To Id) -] 850 mg IVPB Q2D@1600 vial 11/10/17 Mupirocin Cream [Bactroban 2% Cream -] 1 applic TP BID 15 Days #1 tube 11/10/17 Anemia: No Asthma: Yes Cancer: No Cardiac Disorders: No CVA: No COPD: No CHF: No Dementia: No Diabetes: Yes (DM) Dialysis: Yes (SAT,TUES, THURS) GI Disorders: Yes (UMBALICAL HERNIA) Disorders: No HTN: Yes Hypercholesterolemia: No Liver Disease: No Psychiatric Problems: Yes (PTSD) Seizures: No Thyroid Disease: No - Surgical History Abdominal Surgery: Yes (UMB.HERNIA X 5 / mesh placement x2 /) Appendectomy: No Cardiac Surgery: No Cholecystectomy: No GI Surgery: Yes Lung Surgery: No Neurologic Surgery: No - Immunization History Immunization Up to Date: Yes - Suicide/Smoking/Psychosocial Hx Smoking Status: Yes Smoking History: Current every day smoker Have you smoked in the past 12 months: Yes Number of Cigarettes Smoked Daily: 10 Information on smoking cessation initiated: No 'Breaking Loose' booklet given: 10/17/17 Hx Alcohol Use: No Drug/Substance Use Hx: No Substance Use Type: None Hx Substance Use Treatment: No Review of Systems - Review of Systems Comments:: 11/16/17 18:01 GENERAL/CONSTITUTIONAL: No fever or chills. No weakness. HEAD, EYES, EARS, NOSE AND THROAT: No change in vision. No ear pain or discharge. No sore throat. CARDIOVASCULAR: No chest pain or shortness of breath RESPIRATORY: No cough, wheezing, or hemoptysis. GASTROINTESTINAL: +Pain at site of wound (chronic). No nausea, vomiting, diarrhea or constipation. GENITOURINARY: No dysuria, frequency, or change in urination. MUSCULOSKELETAL: No joint or muscle swelling or pain. No neck or back pain. SKIN: No rash NEUROLOGIC: No headache, vertigo, loss of consciousness, or change in strength/ sensation. ENDOCRINE: No increased thirst. No abnormal weight change HEMATOLOGIC/LYMPHATIC: No anemia, easy bleeding, or history of blood clots. ALLERGIC/IMMUNOLOGIC: No hives or skin allergy. *Physical Exam - Vital Signs Last Vital Signs Temp Pulse Resp BP Pulse Ox 97.8 F 98 H 22 135/89 99 11/16/17 17:50 11/16/17 17:50 11/16/17 17:50 11/16/17 17:50 11/16/17 17:50 - Physical Exam Comments: 11/16/17 18:01 GENERAL: Awake, alert, and fully oriented, in no acute distress HEAD: No signs of trauma, normocephalic, atraumatic EYES: PERRLA, EOMI, sclera anicteric, conjunctiva clear ENT: Auricles normal inspection, hearing grossly normal, nares patent, oropharynx clear without exudates. Moist mucosa NECK: Normal ROM, supple, no lymphadenopathy, JVD, or masses LUNGS: No distress, speaks full sentences, clear to auscultation bilaterally HEART: Regular rate and rhythm, normal S1 and S2, no murmurs, rubs or gallops, peripheral pulses normal and equal bilaterally. ABDOMEN: +Patient tender at site of abdominal wound however appears well healing. Otherwise soft, normoactive bowel sounds. No guarding, no rebound. No masses EXTREMITIES: Normal inspection, Normal range of motion, no edema. No clubbing or cyanosis. NEUROLOGICAL: Cranial nerves II through XII grossly intact. Normal speech, normal gait, no focal sensorimotor deficits SKIN: Warm, Dry, normal turgor, no rashes or lesions noted. Medical Decision Making - Medical Decision Making 11/16/17 18:52 Ms. Marlena Rubio is a 52 yo female w/ pmh as described who presents for evaluation after dialysis was unsuccessful today. Patient signed out to Dr. Gallegos for further evaluation. *DC/Admit/Observation/Transfer Diagnosis at time of Disposition: ESRD (end stage renal disease) Clotted vascular catheter Qualifiers: Encounter type: initial encounter Qualified Code(s): T82.898A - Other specified complication of vascular prosthetic devices, implants and grafts, initial encounter - Referrals - Patient Instructions - Post Discharge Activity
--- NOTE | 2017-11-16 19:00 | PDOC ---
*Physical Exam - Vital Signs Last Vital Signs Temp Pulse Resp BP Pulse Ox 97.8 F 98 H 22 135/89 99 11/16/17 17:50 11/16/17 17:50 11/16/17 17:50 11/16/17 17:50 11/16/17 17:50 ED Treatment Course - LABORATORY CBC & Chemistry Diagram: 11/18/17 09:00 11/18/17 09:00 Medical Decision Making - Medical Decision Making Pt endorsed to me by Dr Marc. Will likely admit for dialysis. 11/16/17 18:59 Multiple attempts to contact PMD. Call placed to [facility], will admit to hospitalist group overnight and transfer care in AM. 11/17/17 00:02 *DC/Admit/Observation/Transfer Diagnosis at time of Disposition: ESRD (end stage renal disease) Clotted vascular catheter Qualifiers: Encounter type: initial encounter Qualified Code(s): T82.898A - Other specified complication of vascular prosthetic devices, implants and grafts, initial encounter - Discharge Dispostion Condition at time of disposition: Fair Decision to Admit order: Yes - Referrals - Patient Instructions - Post Discharge Activity
[2017-11-16 21:16] LABS: BASO % 0.5 % (0-2.0); EOS % 2.4 % (0-4.5); HEMATOCRIT 26.4 % (32.4-45.2); HEMOGLOBIN 8.9 GM/dL (10.7-15.3); MCH 31.7 pg (25.7-33.7); MCHC 33.6 g/dl (32.0-36.0); MEAN CELL VOLUME 94.5 fl (80-96); MEAN PLT VOLUME 8.5 fl (7.5-11.1); MONO % 8.1 % (3.8-10.2); PLATELET COUNT 139 K/MM3 (134-434); RBC 2.79 M/mm3 (3.60-5.2); RDW 16.2 % (11.6-15.6)
[2017-11-16 21:43] LABS: ALBUMIN 1.6 g/dl (3.4-5.0); ANION GAP 10 (8-16); BILIRUBIN,TOTAL 0.2 mg/dL (0.2-1.0); BLOOD UREA NITROGEN 53 mg/dL (7-18); CHLORIDE 102 mmol/L (98-107); CO2 24 mmol/L (21-32); GLUCOSE,RANDOM 80 mg/dL (74-106); POTASSIUM 4.3 mmol/L (3.5-5.1); SGOT/AST 55 U/L (15-37); SGPT/ALT 35 U/L (12-78); SODIUM 136 mmol/L (136-145); TOT PROT 6.3 g/dl (6.4-8.2)
[2017-11-16 21:48] LABS: ALK PHOS 78 U/L (45-117)
[2017-11-16 21:57] LABS: CREATININE 10.5 mg/dL (0.55-1.02)
[2017-11-16 22:00] LABS: INR 1.08 (0.82-1.09); PROTHROMBIN TIME (PATIENT) 12.2 SEC (9.7-13.0)
--- NOTE | 2017-11-16 22:12 | PDOC ---
Attending Attestation - [facility] HPI: 11/16/17 22:17 The patient is a 52 year old female with a significant past medical history of Dialysis (Monday, ,Monday), HTN, diabetes, asthma, umbilical hernia, and PTSD coming from [facility] who presents to the emergency department for evaluation of left upper chest catheter site today. She reports was sent to the ED for evaluation of catheter site since she was unable to be dialyzed today. She reports her last dialysis session was on Monday and skipped her Monday session. She reports falling and landing on the right side of her stomach on Monday morning which is the reason why she did not attend dialysis that day. She reports associated abdominal pain s/p fall. She denies head trauma or loss of consciousness. She was admitted 11/07 for nonfunctional permacatch on left arm and was discharged on 11/10. The patient denies chest pain, shortness of breath, headache, and dizziness. Denies fevers, chills, nausea, vomiting, diarrhea, and constipation. Denies dysuria, frequency, urgency, and hematuria. Allergies: NKDA Past surgical history: Umbilical hernia X 5/mesh placement x2 , GI Surgery. Social history: Current everyday smoker. No reported alcohol or drug use. PCP: Dr. Velazco Helmet Coverer: Dr. Romano - Physicial Exam PE: Constitutional: Awake, alert, oriented. No acute distress. Head: Normocephalic. Atraumatic Eyes: PERRL. EOMI. Conjunctivae are not pale. ENT: Mucous membranes are moist and intact. Posterior pharynx without exudates or erythema. Uvula midline. Neck: Supple. Full ROM. No lymphadenopathy. Cardiovascular: Regular rate. Regular rhythm. S1, S2 regular. Distal pulses are 2+ and symmetric. Pulmonary/Chest: (+)Permcath on left upper chest. (+)Lung sounds diminished at bases. No wheezing, rales or rhonchi. Abdominal: (+)Tender over incision site, no drainage, no redness. Soft and non- distended. No rebound, guarding or rigidity. No organomegaly. No palpable masses. Good bowel sounds. Back: No CVA tenderness. Musculoskeletal: No edema. No cyanosis. No clubbing. Full range of motion in all extremities. Nocalf tenderness. Radial/pedal pulses are intact and 2+ bilaterally Extremities: (+)Old dialysis access sites (fistula and graft) on right and left arm. Skin: Skin is warm and dry. No petechiae. No purpura. Neurological: Alert and oriented to person, place, and time. Cranial nerves II -XII are grossly intact. Normal speech. Strength is grossly symmetric. No sensory deficits. Psychiatric: Good eye contact. Normal interaction, affect and behavior. - Medical Decision Making Case discussed with Dr. Romano at 21:46. <Marcus Lyman - Last Filed: 11/16/17 22:17> - Resident Resident Name: Michael Marc - ED Attending Attestation I have performed the following: I have examined & evaluated the patient, The case was reviewed & discussed with the resident, I agree w/resident's findings & plan, Exceptions are as noted - Medical Decision Making 11/16/17 22:12 I, Dr. Evelina Araiza, DO, attest that this document has been prepared under my direction and personally reviewed by me in its entirety. I further attest, that it accurately reflects all work, treatment, procedures and medical decision -making performed by me. 11/16/17 22:[address] romano, consult placed to dr. romano and dr. mendoza 11/16/17 22:20 52yo esrd on hd with Dr. Romano with clogged HD catheter to L chest -failed b/l UE grafts and fistulas current access to L chest wall - unable to undergo HD today -will check labs, discuss with nephro, discuss with PMD pt will need admission for HD catheter eval and then HD 11/16/17 23:38 multiple calls placed to PMD will place on symphony overnight and hand off in the am case discussed iwth Dr. Melendrez who accepts pt to service <Evelina Araiza - Last Filed: 11/16/17 23:38> Heart Score/ECG Review - ECG Intrepretation Comment:: 11/16/17 22:59 sinus at 81, nl axis, nl interval, no acute st/t wave findings <Evelina Araiza - Last Filed: 11/16/17 23:38> Attestations - Attestations Documentation prepared by Marcus Lyman, acting as medical receptionist assistant for Evelina Araiza DO. <Marcus Lyman - Last Filed: 11/16/17 22:17>
[2017-11-17] MEDS ORDERED: oxyCODONE HCL 5 MG TABLET PO PRN ×4 (08:43→17:59)
[2017-11-17] MEDS ORDERED: ALBUTEROL SO4 18 GM HFA INHALER IH PRN ×2 (08:43→17:59)
--- NOTE | 2017-11-17 08:49 | HP ---
Admitting History and Physical - Primary Care Physician PCP: Elvis Lau - Admission Chief Complaint: non-working HD catheter History of Present Illness: hospitalization in early October for MRSA VRE bacteremia, presumably due to infected permacath. catheter was removed, new one placed several days later on 10.23.17. pt returned on 11.08.17 for non-working cath again, 11.09.17 perma-cath was changed over guide wire. as per pt unit had difficulty dialysing her on 11.11.17 but were able to complete. she did not attend her next scheduled hd due to a fall. yesterday they were unable to access cath. of note hypercoagulable w/up pending, so far MTHFR, leiden and AT III munations are negative. History Source: Patient Limitations to Obtaining History: No Limitations - Past Medical History Cardiovascular: Yes: HTN, Other (obesity) Pulmonary: Yes: Asthma, Sleep Apnea (on CPAP at home) Gastrointestinal: Yes: Constipation (chronic on opioids), Diverticulosis, GERD Renal/: Yes: Renal Failure (ESRD on HD for 4 years due to polycystic disease) , Hemodialysis Psych: Yes: Anxiety, Other (post traumatic stress disorder) Musculoskeletal: Yes: Chronic low back pain (on lyrica and percocet at home) Endocrine: Yes: Diabetes Mellitus, Hyperparathyroidism - Past Surgical History Past Surgical History: Yes: AV Fistula/Graft (R arm), Hernia Repair (x3) - Smoking History Smoking history: Current every day smoker Have you smoked in the past 12 months: Yes Aproximately how many cigarettes per day: 10 - Alcohol/Substance Use Hx Alcohol Use: No - Social History ADL: Support Services (has an aid now, 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) History of Recent Travel: No Home Medications - Allergies Allergies/Adverse Reactions: Allergies Allergy/AdvReac Type Severity Reaction Status Date / Time No Known Allergies Allergy Verified 11/16/17 17:50 - Home Medications Home Medications: Ambulatory Orders Albuterol Sulfate Inhaler - [Ventolin HFA Inhaler -] 1 - 2 inh PO Q4H 05/11/17 Furosemide [Lasix] 80 mg PO DAILY 05/11/17 Pregabalin [Lyrica] 100 mg PO DAILY 05/11/17 Salmeterol/Fluticasone [Advair 250Mcg/50Mcg -] 1 inh PO BID 05/11/17 Simvastatin 40 mg PO DAILY 05/11/17 Sevelamer Carbonate [Renvela -] 800 mg PO TIDCM tab 08/04/17 Docusate Sodium [Colace] 100 mg PO DAILY 10/16/17 Quetiapine Fumarate [Seroquel -] 200 mg PO HS 10/16/17 Daptomycin [Cubicin (Restricted To Id) -] 850 mg IVPB DAILY@1400 vial Pantoprazole Sodium [Protonix -] 20 mg PO BID tablet.ec 10/27/17 oxyCODONE HCL [Roxicodone -] 10 mg PO Q4H PRN tablet MDD 6 10/27/17 Aspirin Coated [Ecotrin -] 81 mg PO DAILY #30 tablet.ec 11/10/17 Daptomycin [Cubicin (Restricted To Id) -] 850 mg IVPB Q2D@1600 vial 11/10/17 Mupirocin Cream [Bactroban 2% Cream -] 1 applic TP BID 15 Days #1 tube 11/10/17 Family Disease History - Family Disease History Family Disease History: Other: Mother (polycystic disease, CVA, brain aneurysm) , Son, Daughter Review of Systems - Review of Systems Constitutional: reports: No Symptoms Eyes: reports: No Symptoms HENT: reports: No Symptoms Neck: reports: No Symptoms Cardiovascular: reports: No Symptoms Respiratory: reports: No Symptoms Gastrointestinal: reports: No Symptoms Genitourinary: reports: No Symptoms Musculoskeletal: reports: Back Pain Integumentary: reports: No Symptoms Neurological: reports: No Symptoms Physical Examination Vital Signs: Vital Signs Temperature 98 F 11/17/17 00:57 Pulse Rate 76 11/17/17 00:57 Respiratory Rate 19 11/17/17 00:57 Blood Pressure 146/78 11/17/17 00:57 O2 Sat by Pulse Oximetry (%) 99 11/16/17 17:50 Constitutional: Yes: Calm, Obese Eyes: Yes: Conjunctiva Clear, EOM Intact HENT: Yes: Atraumatic, Normocephalic Neck: Yes: Supple, Trachea Midline Cardiovascular: Yes: Regular Rate and Rhythm Respiratory: Yes: CTA Bilaterally Gastrointestinal: Yes: Normal Bowel Sounds, Soft Musculoskeletal: Yes: WNL Extremities: Yes: WNL Edema: Yes Edema: LLE: Trace, RLE: Trace Wound/Incision: Yes: Draining (serous discharge from hernia scar persists) Neurological: Yes: WNL Psychiatric: Yes: WNL Labs: CBC, BMP 11/16/17 21:05 11/16/17 21:05 Imaging - Results Chest X-ray: Report Reviewed (no acute ds.) EKG: Pending Problem List - Problems (1) Clotted vascular catheter Code(s): T82.898A - OTH COMPLICATION OF VASCULAR PROSTH DEV/GRFT, INIT Qualifiers: Encounter type: initial encounter Qualified Code(s): T82.898A - Other specified complication of vascular prosthetic devices, implants and grafts, initial encounter (2) ESRD (end stage renal disease) Code(s): N18.6 - END STAGE RENAL DISEASE (3) GA on CPAP Code(s): G47.33 - OBSTRUCTIVE SLEEP APNEA (ADULT) (PEDIATRIC) (4) Obesity Code(s): E66.9 - OBESITY, UNSPECIFIED Qualifiers: Obesity type: due to excess calories Obesity classification: adult class 3 (BMI >= 40) Serious obesity comorbidity presence: with serious comorbidity (5) PTSD (post-traumatic stress disorder) Code(s): F43.10 - POST-TRAUMATIC STRESS DISORDER, UNSPECIFIED Assessment/Plan NPO for OR for catheter HD and daptomycin afterwards resume home medications
--- NOTE | 2017-11-17 09:35 | EKG ---
Test Reason : Blood Pressure : / mmHG Vent. Rate : 081 BPM Atrial Rate : 081 BPM P-R Int : 188 ms QRS Dur : 100 ms QT Int : 386 ms P-R-T Axes : 048 002 063 degrees QTc Int : 448 ms NORMAL SINUS RHYTHM WHEN COMPARED WITH ECG OF 07-NOV-2017 18:00, T WAVE INVERSION NO LONGER EVIDENT IN ANTERIOR LEADS Confirmed by SONYA SNEED MD ([id number]) on 11/17/2017 9:34:46 AM Referred By: Confirmed By:SONYA SNEED MD
[2017-11-17] MEDS ORDERED: FUROSEMIDE 40 MG TABLET (FP) PO SCH (10:00)
[2017-11-17] MEDS ORDERED: PANTOPRAZOLE 20 MG TABLET (FP) PO SCH ×2 (10:00→22:00)
[2017-11-17] MEDS ORDERED: BUDESONIDE/FORMETEROL FUMARATE 80/4.5 mcg INHALER IH SCH ×2 (10:00→22:00)
[2017-11-17] MEDS ORDERED: PREGABALIN 100 MG CAPSULE PO SCH (10:00)
[2017-11-17] MEDS ORDERED: MUPIROCIN CA 2% TOPICAL CREAM 15 GM TUBE TP SCH ×2 (10:00→22:00)
[2017-11-17] MEDS ORDERED: SEVELAMER CARBONATE 800 MG TAB (FP) PO SCH (12:00)
[2017-11-17] MEDS ORDERED: DOCUSATE SODIUM 100 MG CAPSULE (FP) PO SCH (14:00)
[2017-11-17] MEDS ORDERED: ONDANSETRON 4 MG/2 ML VIAL IVPUSH PRN ×2 (15:57→19:41)
[2017-11-17] MEDS ORDERED: SODIUM CHLORIDE 1,000 ML IV SCH ×2 (16:00→20:00)
[2017-11-17] MEDS ORDERED: DAPTOmycin 500 MG VIAL (RESTRICTED TO ID) IVPB SCH (16:00)
[2017-11-17] MEDS ORDERED: LIDOCAINE HCL 1%, 10 MG/ML (20ML VIAL) ONE (16:03)
[2017-11-17] MEDS ORDERED: MIDAZOLAM HCL 2 MG/2 ML SINGLE DOSE VIAL ONE (16:12)
[2017-11-17] MEDS ORDERED: PROPOFOL 20 ML ONE ×4 (16:13→16:14)
[2017-11-17] MEDS ORDERED: ceFAZolin SODIUM 1 GM VIAL IVPB ONE (16:35)
[2017-11-17] MEDS ORDERED: SODIUM CHLORIDE 0.9% P/F 10 ML VIAL IJ ONE (16:44)
[2017-11-17] MEDS ORDERED: ceFAZolin SODIUM 1 GM VIAL ONE (16:44)
[2017-11-17] MEDS ORDERED: LIDOCAINE HCL 1%, 10 MG/ML (50 mL VIAL) IJ ONE (16:45)
--- NOTE | 2017-11-17 17:08 | CONSULT ---
Consult Consult Specialty:: Nephrology Reason for Consultation:: ESRD - History of Present Illness Chief Complaint: HD catheter is not working History of Present Illness: Pt is a 52 year old female with PMHx of ESRD on HD TTS schedule who presented to the ER last night as HD catheter was not working. She was last dialyzed on Monday. She says she missed HD on Monday and when she went on the catheter was not working. She denies shortness of breath. She lives at home and has been going to HD in [facility]. She denies fevers or chills. - History Source History Provided By: Patient - Past Medical History Cardio/Vascular: Yes: HTN, Other (obesity) Pulmonary: Yes: Asthma, Sleep Apnea (on CPAP at home) Gastrointestinal: Yes: Constipation (chronic on opioids), Diverticulosis, GERD Renal/: Yes: Renal Failure (ESRD on HD for 4 years due to polycystic disease) , Hemodialysis Psych: Yes: Anxiety, Other (post traumatic stress disorder) Musculoskeletal: Yes: Chronic low back pain (on lyrica and percocet at home) Endocrine: Yes: Diabetes Mellitus, Hyperparathyroidism - Past Surgical History Past Surgical History: Yes: AV Fistula/Graft (R arm), Hernia Repair (x3) - Alcohol/Substance Use Hx Alcohol Use: No - Smoking History Smoking history: Current every day smoker Have you smoked in the past 12 months: Yes Aproximately how many cigarettes per day: 10 - Social History Usual Living Arrangement: With Child ADL: Support Services (has an aid now, has 2 kids [employer]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) History of Recent Travel: No Home Medications - Allergies Allergies/Adverse Reactions: Allergies Allergy/AdvReac Type Severity Reaction Status Date / Time No Known Allergies Allergy Verified 11/16/17 17:50 - Home Medications Home Medications: Ambulatory Orders Albuterol Sulfate Inhaler - [Ventolin HFA Inhaler -] 1 - 2 inh PO Q4H 05/11/17 Furosemide [Lasix] 80 mg PO DAILY 05/11/17 Pregabalin [Lyrica] 100 mg PO DAILY 05/11/17 Salmeterol/Fluticasone [Advair 250Mcg/50Mcg -] 1 inh PO BID 05/11/17 Simvastatin 40 mg PO DAILY 05/11/17 Sevelamer Carbonate [Renvela -] 800 mg PO TIDCM tab 08/04/17 Docusate Sodium [Colace] 100 mg PO DAILY 10/16/17 Quetiapine Fumarate [Seroquel -] 200 mg PO HS 10/16/17 Daptomycin [Cubicin (Restricted To Id) -] 850 mg IVPB DAILY@1400 vial Pantoprazole Sodium [Protonix -] 20 mg PO BID tablet.ec 10/27/17 oxyCODONE HCL [Roxicodone -] 10 mg PO Q4H PRN tablet MDD 6 10/27/17 Aspirin Coated [Ecotrin -] 81 mg PO DAILY #30 tablet.ec 11/10/17 Daptomycin [Cubicin (Restricted To Id) -] 850 mg IVPB Q2D@1600 vial 11/10/17 Mupirocin Cream [Bactroban 2% Cream -] 1 applic TP BID 15 Days #1 tube 11/10/17 Family Disease History - Family Disease History Family Disease History: Other: Mother (polycystic disease, CVA, brain aneurysm) , Son, Daughter Review of Systems - Review of Systems Constitutional: reports: No Symptoms Eyes: reports: No Symptoms HENT: reports: No Symptoms Neck: reports: No Symptoms Cardiovascular: reports: No Symptoms Respiratory: reports: No Symptoms Gastrointestinal: reports: No Symptoms Genitourinary: reports: No Symptoms Musculoskeletal: reports: No Symptoms Integumentary: reports: No Symptoms Neurological: reports: No Symptoms Endocrine: reports: No Symptoms Hematology/Lymphatic: reports: No Symptoms Psychiatric: reports: No Symptoms Physical Exam Vital Signs: Vital Signs Temperature 98.1 F 11/17/17 15:05 Pulse Rate 80 11/17/17 15:05 Respiratory Rate 20 11/17/17 15:05 Blood Pressure 140/76 11/17/17 15:05 O2 Sat by Pulse Oximetry (%) 100 11/17/17 15:05 Constitutional: Yes: Calm Eyes: Yes: Conjunctiva Clear HENT: Yes: Atraumatic Neck: Yes: Supple Cardiovascular: Yes: S1, S2 Respiratory: Yes: CTA Bilaterally Gastrointestinal: Yes: Soft, Abdomen, Obese Renal/: Yes: WNL Musculoskeletal: Yes: WNL Edema: Yes Edema: LLE: Trace, RLE: Trace Integumentary: Yes: Tattoos Neurological: Yes: Oriented Psychiatric: Yes: Oriented Labs: CBC, BMP 11/16/17 21:05 11/16/17 21:05 Imaging - Results Chest X-ray: Report Reviewed Problem List - Problems (1) Clotted vascular catheter Code(s): T82.898A - OTH COMPLICATION OF VASCULAR PROSTH DEV/GRFT, INIT Qualifiers: Encounter type: initial encounter Qualified Code(s): T82.898A - Other specified complication of vascular prosthetic devices, implants and grafts, initial encounter (2) ESRD (end stage renal disease) Code(s): N18.6 - END STAGE RENAL DISEASE Assessment/Plan Current Medications Generic Name Dose Route Start Last Admin Trade Name Freq PRN Reason Stop Dose Admin Albuterol Sulfate 2 puff 11/17/17 08:43 Ventolin Hfa Inhaler - IH Q4H PRN ASTHMA Atorvastatin Calcium 20 mg 11/17/17 22:00 Lipitor - PO [facility] Budesonide/Formoterol Fumarate 2 puff 11/17/17 10:00 11/17/17 11:19 Symbicort 80/4.5mcg - IH Not Given BID [facility] Daptomycin 850 mg 11/17/17 16:00 Cubicin (Restricted To Id) - IVPB Q2D@1600 [facility] Protocol Docusate Sodium 100 mg 11/17/17 14:00 11/17/17 15:24 Colace - PO Not Given TID [facility] Enoxaparin Sodium 30 mg 11/18/17 10:00 Lovenox - SQ DAILY [facility] Fentanyl 25 mcg 11/17/17 15:57 Sublimaze Injection - IVPUSH [id number] PRN PAIN-PACU ORDER X 4 DOSES ONLY Furosemide 80 mg 11/17/17 10:00 11/17/17 11:18 Lasix - PO Not Given DAILY [facility] Sodium Chloride 1,000 mls @ 75 mls/hr 11/17/17 16:00 Normal Saline - IV ASDIR [facility] Mupirocin 1 applic 11/17/17 10:00 11/17/17 11:18 Bactroban 2% Cream - TP Not Given BID [facility] Ondansetron HCl 4 mg 11/17/17 15:57 Zofran Injection IVPUSH Q6H PRN NAUSEA AND/OR VOMITING Oxycodone HCl 10 mg 11/17/17 08:43 Roxicodone - PO Q4H PRN PAIN LEVEL 6-10 Oxycodone HCl 5 mg 11/17/17 15:57 Roxicodone - PO 11/18/17 15:56 Q4H PRN PAIN LEVEL 1-5 Pantoprazole Sodium 20 mg 11/17/17 10:00 11/17/17 11:18 Protonix - PO Not Given BID DAVID Pregabalin 100 mg 11/17/17 10:00 11/17/17 11:18 Lyrica - PO Not Given DAILY DAVID Quetiapine Fumarate 200 mg 11/17/17 22:00 Seroquel - PO HS DAVID Sevelamer Carbonate 800 mg 11/17/17 12:00 11/17/17 12:24 Renvela - PO Not Given TIDCM DAVID Impression 1. ESRD 2. permacath malfunction 3. sleep apnea 4. htn 5. dm 6. asthma 7. obesity 8. anxiety 9. hx of acute psychosis/delusions Plan - permacath change today - HD today after permacath - HD again tomorrow to get pt back on schedule - repeat labs in am - will follow Dr Romano
[2017-11-17] MEDS ORDERED: SODIUM CHLORIDE 250 ML IV PRN ×2 (17:09→17:59)
[2017-11-17] MEDS ORDERED: EPOETIN ALFA 2,000 UNIT/1 ML VIAL IVPUSH ONE (17:09)
--- NOTE | 2017-11-17 17:27 | OP ---
Operative Note - Note: Operative Date: 11/17/17 Pre-Operative Diagnosis: malfunctioning permacath Operation: permacath exchange Post-Operative Diagnosis: Same as Pre-op Surgeon: Wilmer Crabtree Anesthesia: Fractional Estimated Blood Loss (mls): 10 Operative Report Dictated: Yes
[2017-11-17] MEDS ORDERED: EPOETIN ALFA 3,000 UNIT, EPOETIN ALFA 2,000 UNIT IVPUSH ONE (17:45)
[2017-11-17] MEDS ORDERED: QUEtiapine FUMARATE 200 MG TABLET PO SCH (22:00)
[2017-11-17] MEDS ORDERED: ATORVASTATIN CA 20 MG TABLET (FP) PO SCH ×2 (22:00)
[2017-11-17] MEDS: DOCUSATE SODIUM 100 MG CAPSULE (FP) PO SCH (22:43)
[2017-11-17] MEDS: QUEtiapine FUMARATE 200 MG TABLET PO SCH ×2 (22:51→23:15)
[2017-11-18] MEDS: DOCUSATE SODIUM 100 MG CAPSULE (FP) PO SCH (06:39)
[2017-11-18] MEDS ORDERED: EPOETIN ALFA 2,000 UNIT/1 ML VIAL IVPUSH ONE (07:31)
[2017-11-18] MEDS ORDERED: SODIUM CHLORIDE 250 ML IV PRN (07:31)
[2017-11-18] MEDS ORDERED: SEVELAMER CARBONATE 800 MG TAB (FP) PO SCH (08:00)
[2017-11-18] MEDS ORDERED: EPOETIN ALFA 2,000 UNIT, EPOETIN ALFA 3,000 UNIT IVPUSH ONE (09:00)
[2017-11-18 09:33] LABS: HEMATOCRIT 27.5 % (32.4-45.2); HEMOGLOBIN 9.1 GM/dL (10.7-15.3); MCH 31.4 pg (25.7-33.7); MEAN CELL VOLUME 95.1 fl (80-96); MEAN PLT VOLUME 8.8 fl (7.5-11.1); PLATELET COUNT 93 K/MM3 (134-434); RBC 2.89 M/mm3 (3.60-5.2); WHITE BLOOD COUNT 2.9 K/mm3 (4.0-10.0)
[2017-11-18 09:38] VITALS: TEMP 98.4
[2017-11-18] MEDS ORDERED: FUROSEMIDE 40 MG TABLET (FP) PO SCH (10:00)
[2017-11-18] MEDS ORDERED: ENOXAPARIN NA (PORCINE) 30 MG/0.3 ML DISP.SYRIN SQ SCH ×2 (10:00)
[2017-11-18] MEDS ORDERED: PREGABALIN 100 MG CAPSULE PO SCH (10:00)
[2017-11-18 10:01] LABS: ALBUMIN 1.5 g/dl (3.4-5.0); ANION GAP 8 (8-16); BLOOD UREA NITROGEN 38 mg/dL (7-18); CALCIUM 7.8 mg/dL (8.5-10.1); CHLORIDE 104 mmol/L (98-107); CO2 28 mmol/L (21-32); GLUCOSE,RANDOM 103 mg/dL (74-106); SGOT/AST 28 U/L (15-37); SGPT/ALT 29 U/L (12-78); SODIUM 140 mmol/L (136-145)
[2017-11-18 10:08] LABS: ALK PHOS 83 U/L (45-117); BILIRUBIN,TOTAL 0.3 mg/dL (0.2-1.0)
[2017-11-18 10:13] LABS: CREATININE 8.4 mg/dL (0.55-1.02)
--- NOTE | 2017-11-18 12:23 | PN ---
Progress Note, Physician History of Present Illness: Pt seen and examined at bedside. She is awake and alert. She is currently getting HD. - Current Medication List Current Medications: Active Medications Albuterol Sulfate (Ventolin Hfa Inhaler -) 2 puff IH Q4H PRN PRN Reason: ASTHMA Atorvastatin Calcium (Lipitor -) 20 mg PO HS [facility] Budesonide/Formoterol Fumarate (Symbicort 80/4.5mcg -) 2 puff IH BID [facility] Last Admin: 11/17/17 22:51 Dose: 2 puff Daptomycin (Cubicin (Restricted To Id) -) 850 mg IVPB Q2D@1600 DAVID PRN Reason: Protocol Docusate Sodium (Colace -) 100 mg PO TID [facility] Last Admin: 11/18/17 06:39 Dose: Not Given Enoxaparin Sodium (Lovenox -) 30 mg SQ DAILY [facility] Fentanyl (Sublimaze Injection -) 25 mcg IVPUSH [id number] PRN PRN Reason: PAIN-PACU ORDER X 4 DOSES ONLY Furosemide (Lasix -) 80 mg PO DAILY [facility] Sodium Chloride (Normal Saline -) 1,000 mls @ 75 mls/hr IV ASDIR [facility] Last Admin: 11/17/17 22:15 Dose: Not Given Sodium Chloride (Normal Saline -) 250 mls @ 3,000 mls/hr IV PRN PRN PRN Reason: Hypotension during Dialysis Stop: 11/19/17 07:31 Mupirocin (Bactroban 2% Cream -) 1 applic TP BID [facility] Last Admin: 11/17/17 22:24 Dose: Not Given Ondansetron HCl (Zofran Injection) 4 mg IVPUSH Q6H PRN PRN Reason: NAUSEA AND/OR VOMITING Oxycodone HCl (Roxicodone -) 10 mg PO Q4H PRN PRN Reason: PAIN LEVEL 6-10 Oxycodone HCl (Roxicodone -) 5 mg PO Q4H PRN PRN Reason: PAIN LEVEL 1-5 Stop: 11/18/17 15:56 Last Admin: 11/18/17 07:34 Dose: 5 mg Pantoprazole Sodium (Protonix -) 20 mg PO BID [facility] Last Admin: 11/17/17 22:43 Dose: 20 mg Pregabalin (Lyrica -) 100 mg PO DAILY [facility] Quetiapine Fumarate (Seroquel -) 200 mg PO HS [facility] Last Admin: 11/17/17 23:15 Dose: Not Given Sevelamer Carbonate (Renvela -) 800 mg PO TIDCM [facility] - Objective Vital Signs: Vital Signs Temperature 98.4 F 11/18/17 08:50 Pulse Rate 88 11/18/17 11:55 Respiratory Rate 18 11/18/17 11:55 Blood Pressure 140/73 11/18/17 11:55 O2 Sat by Pulse Oximetry (%) 98 11/17/17 21:48 Constitutional: Yes: Calm Eyes: Yes: Conjunctiva Clear HENT: Yes: Atraumatic Cardiovascular: Yes: S1, S2 Respiratory: Yes: CTA Bilaterally Gastrointestinal: Yes: Soft, Abdomen, Obese Genitourinary: Yes: WNL Musculoskeletal: Yes: WNL Edema: No Integumentary: Yes: Tattoos Neurological: Yes: Oriented Psychiatric: Yes: Oriented Labs: CBC, BMP 11/18/17 09:00 11/18/17 09:00 INR, PTT INR 1.08 (0.82-1.09) 11/16/17 21:50 Problem List - Problems (1) Clotted vascular catheter Code(s): T82.898A - OTH COMPLICATION OF VASCULAR PROSTH DEV/GRFT, INIT Qualifiers: Encounter type: initial encounter Qualified Code(s): T82.898A - Other specified complication of vascular prosthetic devices, implants and grafts, initial encounter (2) ESRD (end stage renal disease) Code(s): N18.6 - END STAGE RENAL DISEASE Assessment/Plan Current Medications Generic Name Dose Route Start Last Admin Trade Name Freq PRN Reason Stop Dose Admin Albuterol Sulfate 2 puff 11/17/17 17:59 Ventolin Hfa Inhaler - IH Q4H PRN ASTHMA Atorvastatin Calcium 20 mg 11/17/17 22:00 Lipitor - PO [facility] Budesonide/Formoterol Fumarate 2 puff 11/17/17 22:00 11/17/17 22:51 Symbicort 80/4.5mcg - IH 2 puff BID [facility] Administration Daptomycin 850 mg 11/19/17 16:00 Cubicin (Restricted To Id) - IVPB Q2D@1600 [facility] Protocol Docusate Sodium 100 mg 11/17/17 22:00 05/12/18 06:39 Colace - PO Not Given TID DAVID Enoxaparin Sodium 30 mg 11/18/17 10:00 Lovenox - SQ DAILY [facility] Fentanyl 25 mcg 11/17/17 19:40 Sublimaze Injection - IVPUSH [id number] PRN PAIN-PACU ORDER X 4 DOSES ONLY Furosemide 80 mg 11/18/17 10:00 Lasix - PO DAILY [facility] Sodium Chloride 1,000 mls @ 75 mls/hr 11/17/17 20:00 11/17/17 22:15 Normal Saline - IV Not Given ASDIR DAVID Sodium Chloride 250 mls @ 3,000 mls/hr 11/18/17 07:31 Normal Saline - IV 11/19/17 07:31 PRN PRN Hypotension during Dialysis Mupirocin 1 applic 11/17/17 22:00 11/17/17 22:24 Bactroban 2% Cream - TP Not Given BID DAVID Ondansetron HCl 4 mg 11/17/17 19:41 Zofran Injection IVPUSH Q6H PRN NAUSEA AND/OR VOMITING Oxycodone HCl 10 mg 11/17/17 17:59 Roxicodone - PO Q4H PRN PAIN LEVEL 6-10 Oxycodone HCl 5 mg 11/17/17 17:59 11/18/17 07:34 Roxicodone - PO 11/18/17 15:56 5 mg Q4H PRN Administration PAIN LEVEL 1-5 Pantoprazole Sodium 20 mg 11/17/17 22:00 11/17/17 22:43 Protonix - PO 20 mg BID DAVID Administration Pregabalin 100 mg 11/18/17 10:00 Lyrica - PO DAILY [facility] Quetiapine Fumarate 200 mg 11/17/17 22:00 11/17/17 23:15 Seroquel - PO Not Given HS [facility] Sevelamer Carbonate 800 mg 11/18/17 08:00 Renvela - PO TIDCM DAVID Impression 1. ESRD 2. permacath malfunction 3. sleep apnea 4. htn 5. dm 6. asthma 7. obesity 8. anxiety 9. hx of acute psychosis/delusions Plan - pt getting HD today to get her back on schedule - hematology follow up - pt has HD set up as outpt - permacath changed yesterday - will follow Dr Romano
[2017-11-18 12:55] VITALS: BP 137/81; PULSE 85
[2017-11-19] MEDS ORDERED: DAPTOmycin 500 MG VIAL (RESTRICTED TO ID) IVPB SCH (16:00)
[2017-11-21 00:07] LABS: HBSAG SCREEN Negative (Negative); HEP A AB, IGM Negative (Negative); HEP B CORE AB, TOT Negative (Negative)
--- NOTE | 2017-11-21 18:01 | OP ---
DATE OF OPERATION: 11/17/2017 PREOPERATIVE DIAGNOSIS: Malfunctioning PermCath. POSTOPERATIVE DIAGNOSIS: Malfunctioning PermCath. OPERATION: PermCath exchange. SURGEON: Wilmer Jackson D.O. ANESTHESIA: Fractional. BLOOD LOSS: 10 mL. INDICATION: The patient is a 52-year-old female that came in with a malfunctioning left IJ PermCath, decided that she would need a PermCath exchange. The patient was consented for the procedure understanding all risks, benefits, and alternatives and then taken to the operating room. DESCRIPTION OF PROCEDURE: Once in the operating room, patient was laid on the operating table in a supine manner, and the area of the left neck and chest prepped and draped in a sterile surgical manner. We then went ahead and injected 10 mL of lidocaine 1% at the exit site of the PermCath, and we then dissected off the PermCath cuff from skin. The PermCath was freed. We then placed our 0.035 floppy guidewire through the PermCath under fluoroscopy. We then took out our PermCath. We then exchanged our gloves for sterile gloves. We then used a new 22 PermCath and placed it over the guidewire into the vein under fluoroscopy. The tip of the catheter was outside the right atrium. Neck of the catheter . We then deya back on each port of the catheter. There was good flow. Heparinized saline was injected and 2000 units of IV heparin were injected into each port. 4-0 Biosyn was used and 2 simple stitches were placed at the exit site. 3-0 nylon was used and the catheter was attached to the skin. Biopatch, 4x4s, Tegaderm was then placed. The patient tolerated the procedure without complications. Patient was transferred to PACU in stable condition where chest x-ray will be obtained. WILMER JACKSON DO [id number]
--- NOTE | 2017-11-22 06:00 | DS ---
Physical Examination Vital Signs: Vital Signs Temperature 98.4 F 11/18/17 08:50 Pulse Rate 85 11/18/17 12:15 Respiratory Rate 18 11/18/17 12:15 Blood Pressure 137/81 11/18/17 12:15 O2 Sat by Pulse Oximetry (%) 98 11/17/17 21:48 Labs: CBC, BMP 11/18/17 09:00 11/18/17 09:00 Discharge Summary Reason For Visit: CLOTTED VASCULAR CATHETER Hospital Course: admitted for malfunctioning perma cath, caheter was changed on 11.17.17. Tolerated procedure well, stable to dc home with outpt f/up after HD. Condition: Fair - Instructions Diet, Activity, Other Instructions: HD Tue,Barbie,Sat Referrals: Elvis Lau MD [Staff Physician] - Tequila Velazco MD [Primary Care Provider] - Disposition: HOME - Home Medications Comprehensive Discharge Medication List: Ambulatory Orders Albuterol Sulfate Inhaler - [Ventolin HFA Inhaler -] 1 - 2 inh PO Q4H 05/11/17 Furosemide [Lasix] 80 mg PO DAILY 05/11/17 Pregabalin [Lyrica] 100 mg PO DAILY 05/11/17 Salmeterol/Fluticasone [Advair 250Mcg/50Mcg -] 1 inh PO BID 05/11/17 Simvastatin 40 mg PO DAILY 05/11/17 Sevelamer Carbonate [Renvela -] 800 mg PO TIDCM tab 08/04/17 Docusate Sodium [Colace] 100 mg PO DAILY 10/16/17 Quetiapine Fumarate [Seroquel -] 200 mg PO HS 10/16/17 Daptomycin [Cubicin (Restricted To Id) -] 850 mg IVPB DAILY@1400 vial Pantoprazole Sodium [Protonix -] 20 mg PO BID tablet.ec 10/27/17 oxyCODONE HCL [Roxicodone -] 10 mg PO Q4H PRN tablet MDD 6 10/27/17 Aspirin Coated [Ecotrin -] 81 mg PO DAILY #30 tablet.ec 11/10/17 Daptomycin [Cubicin (Restricted To Id) -] 850 mg IVPB Q2D@1600 vial 11/10/17 Mupirocin Cream [Bactroban 2% Cream -] 1 applic TP BID 15 Days #1 tube 11/10/17
--- NOTE | 2017-11-22 09:08 | PATH ---
Surgical Pathology Report Patient Name: RENEE ADAN Med. Rec. #: [id number] /Age/Gender: 1965 (Age: 52) / F Account: [id number] Location: 4 W TELEMETRY U Taken: 11/17/2017 Received: 11/20/2017 Reported: 11/22/2017 Physicians: Wilmer Crabtree Specimen(s) Received OLD PERMA CATHETER Clinical History Clotted vascular catheter Final Diagnosis OLD PERMACATH, REMOVAL: CATHETER. MACROSCOPIC DIAGNOSIS. Electronically Signed Alma La M.D. Gross Description Received fresh labeled "old permacath," is a 40 cm in length double lumen catheter. No soft tissue is present. No sections are submitted, gross only. /11/21/201711/21/2017
== END 2017-11-18 14:04 | disposition home or self-care (01) | DRG 314 ==
LOC: JER 17:47 → JERBED 23:38 → UNDOADMIN 23:56 → J4W 11-17 21:19
PROVIDERS: ADMIT Internal Medicine; ATTEND Internal Medicine
PROC: 05H633Z Insertion of Infusion Device into Left Subclavian Vein, Percutaneous Approach (ICD-10-PCS; 2017-11-17)
PROC: B517YZA Fluoroscopy of Left Subclavian Vein using Other Contrast, Guidance (ICD-10-PCS; 2017-11-17)
PROC: 05PY33Z Removal of Infusion Device from Upper Vein, Percutaneous Approach (ICD-10-PCS; 2017-11-17)
PROC: 5A1D70Z Performance of Urinary Filtration, Intermittent, Less than 6 Hours Per Day (ICD-10-PCS; principal; 2017-11-17 15:30)
PROC: 5A1D70Z Performance of Urinary Filtration, Intermittent, Less than 6 Hours Per Day (ICD-10-PCS; 2017-11-18)
DX: T82.898A Other specified complication of vascular prosthetic devices, implants and grafts, initial encounter (principal); N18.6 End stage renal disease; I12.0 Hypertensive chronic kidney disease with stage 5 chronic kidney disease or end stage renal disease; Y83.9 Surgical procedure, unspecified as the cause of abnormal reaction of the patient, or of later complication, without mention of misadventure at the time of the procedure; E11.22 Type 2 diabetes mellitus with diabetic chronic kidney disease; J45.909 Unspecified asthma, uncomplicated; F41.9 Anxiety disorder, unspecified; F22 Delusional disorders; E21.3 Hyperparathyroidism, unspecified; G47.33 Obstructive sleep apnea (adult) (pediatric); M54.5 Low back pain; E66.9 Obesity, unspecified; Z68.39 Body mass index [BMI] 39.0-39.9, adult; N28.1 Cyst of kidney, acquired; F43.10 Post-traumatic stress disorder, unspecified; K42.9 Umbilical hernia without obstruction or gangrene; F17.210 Nicotine dependence, cigarettes, uncomplicated; K57.90 Diverticulosis of intestine, part unspecified, without perforation or abscess without bleeding; K21.9 Gastro-esophageal reflux disease without esophagitis; K59.03 Drug induced constipation; T40.2X5A Adverse effect of other opioids, initial encounter; Y92.098 Other place in other non-institutional residence as the place of occurrence of the external cause; Z99.2 Dependence on renal dialysis
CPT/HCPCS: 36415; 71045-TC-FY; 76000-TC-FY; 80053; 82550; 82553; 84484; 85025; 85027; 85610; 86704; 86706; 86708; 86850; 86900; 86901; 87340; 88300-TC; 93005; 93010; 94760; 99285-25; J0885; J1644

== ENCOUNTER 2018-02-11 18:12 | Emergency (ER) | payer OTHER ==
[2018-02-11 18:45] VITALS: BMI 40.1
--- NOTE | 2018-02-11 19:26 | PDOC ---
Attending Attestation - HPI HPI: 02/11/18 20:42 The patient is a 53-year-old female with past medical history of obesity, HTN, chronic back pain, chronic abdominal wound, ESRD (2/2 polycystic kidney disease with T/R/S dialysis), h/o DVT on Lovenox and DM presents to the emergency department with a clogged dialysis catheter located to the L. chest wall. The patient reports an additional concern of R. leg pain that is accompanied with R. thigh swelling and pain. Surgical history: AV Fistula/Graft (R arm), Hernia Repair (x3), permacath exchange (11/17/2017), Insertion of permacath (10/23/2017) Social history: Records indicate, patient is a current everyday smoker. No reported use of alcohol or recreational drugs. Vascular Surgery: Dr. Crabtree PCP: Dr. Velazco Office Machine Punch Operator: Dr. Romano - Physicial Exam PE: 02/11/18 22:27 GENERAL: AFebril. Awake, alert, and fully oriented, in no acute distress HEAD: No signs of trauma EYES: PERRLA, EOMI, sclera anicteric, conjunctiva clear ENT: Auricles normal inspection, hearing grossly normal, nares patent, oropharynx clear without exudates. Moist mucosa NECK: Normal ROM, supple, no lymphadenopathy, JVD, or masses LUNGS: Breath sounds equal, clear to auscultation bilaterally. No wheezes, and no crackles HEART: Regular rate and rhythm, normal S1 and S2, no murmurs, rubs or gallops ABDOMEN: (+) Large mid abdominal scar from an open Laparotomy that failed to heal, now healed. Soft, nontender, normoactive bowel sounds. No guarding, no rebound. No masses EXTREMITIES: L. chest wall cath. (+) No rashes noted on the legs B/l. Multiple old AV sites to the upper extremity. Full ROM of all extremity. Normal range of motion, no edema. No clubbing or cyanosis. No cords, erythema, or tenderness NEUROLOGICAL: Cranial nerves II through XII grossly intact. Normal speech, normal gait SKIN: Warm, Dry, normal turgor, no rashes or lesions noted. - Medical Decision Making 02/11/18 20:43 Documentation prepared by Margaret Love, acting as medical technologist chief for Veronica Tran MD. 02/11/18 23:01 EXAM: Duplex venous right lower extremity REASON FOR EXAM: Right leg swelling FINDINGS: No evidence of deep venous thrombosis in the visualized segments of the right lower extremity deep venous system. THIS DOCUMENT HAS BEEN ELECTRONICALLY SIGNED Roni Klein MD 02/11/2018 22:35 EST <Margaret Love - Last Filed: 02/12/18 04:56> - Resident Resident Name: Anahi Oropeza - ED Attending Attestation I have performed the following: I have examined & evaluated the patient, The case was reviewed & discussed with the resident, I agree w/resident's findings & plan - Medical Decision Making 02/11/18 23:53 Pt has no DVT; she was given 2mg Cathflo by myself; within 30 min, 6ml blood was removed and the line was flushing without difficulty. Pt will be discharged home. <Veronica Tran - Last Filed: 02/12/18 06:49>
--- NOTE | 2018-02-11 19:44 | PDOC ---
History of Present Illness <Veronica Tran - Last Filed: 02/11/18 23:02> - History of Present Illness Initial Comments: Denita Rubio is a 53yo woman with a PMH of ESRD on HD, DM, HTN, h/o DVT on lovenox, GA, chronic pain who presents today complaining of RLE swelling and pain as well as pleuritic chest pain in her left mid back. She also notes that her dialysis catheter is clogged and she was unable to get dialysis yesterday. Ms Rubio states that she normally has BLE swelling, but she started having a dull, aching pain in her right thigh and groin over the past few days. This pain is constant and relatively mild but has never occurred before. She also noticed increased RLE swelling compared to normal. She additionally has a 7/10 sharp pain in her mid left back that occurs when she attempts to take a deep breath. The pain never resolves completely and is a 4/10 at best. She denies any any shortness of breath, dyspnea, orthopnea, chest pain, fever, or chills. She denies any pulmonary or cardiac history. Ms Rubio also says that she is very interested in getting her dialysis catheter unclogged. She states that she had problems with the catheter previously, and Dr Crabtree was able to inject something to unclog it. She would like the same thing done today as she was told that she would have to have the catheter replaced the next time there were problems. <Anahi Oropeza - Last Filed: 02/12/18 00:13> - General Chief Complaint: Edema Stated Complaint: BACK PAIN Time Seen by Provider: 02/11/18 18:54 Past History <Veronica Tran - Last Filed: 02/11/18 23:02> - Past Medical History Anemia: No Asthma: Yes Cancer: No Cardiac Disorders: No CVA: No COPD: No CHF: No Dementia: No Diabetes: Yes (DM) Dialysis: Yes (SAT,TUES, THURS) GI Disorders: Yes (UMBALICAL HERNIA) Disorders: No HTN: Yes Hypercholesterolemia: No Liver Disease: No Psychiatric Problems: Yes (PTSD) Seizures: No Thyroid Disease: No - Surgical History Abdominal Surgery: Yes (UMB.HERNIA X 5 / mesh placement x2 /) Appendectomy: No Cardiac Surgery: No Cholecystectomy: No GI Surgery: Yes Lung Surgery: No Neurologic Surgery: No - Immunization History Immunization Up to Date: Yes - Suicide/Smoking/Psychosocial Hx Smoking Status: Yes Smoking History: Current every day smoker Have you smoked in the past 12 months: Yes Number of Cigarettes Smoked Daily: 12 Information on smoking cessation initiated: No 'Breaking Loose' booklet given: 11/17/17 Hx Alcohol Use: No Drug/Substance Use Hx: No Substance Use Type: None Hx Substance Use Treatment: No <Anahi Oropeza - Last Filed: 02/12/18 00:13> - Past Medical History Allergies/Adverse Reactions: Allergies Allergy/AdvReac Type Severity Reaction Status Date / Time No Known Allergies Allergy Verified 11/16/17 17:50 Home Medications: Ambulatory Orders Furosemide [Lasix] 80 mg PO DAILY 05/11/17 Pregabalin [Lyrica] 100 mg PO DAILY 05/11/17 Simvastatin 40 mg PO DAILY 05/11/17 Docusate Sodium [Colace] 100 mg PO DAILY 10/16/17 Quetiapine Fumarate [Seroquel -] 200 mg PO HS 10/16/17 oxyCODONE HCL [Roxicodone -] 10 mg PO Q4H PRN tablet MDD 6 10/27/17 Aspirin Coated [Ecotrin -] 81 mg PO DAILY #30 tablet.ec 11/10/17 Amitriptyline HCl [Elavil -] 100 mg PO DAILY 02/11/18 Calcium Acetate 2 cap PO TID 02/11/18 Cetirizine HCl 10 mg PO DAILY 02/11/18 Diphenhydramine HCl 25 mg PO DAILY 02/11/18 Enoxaparin Sodium 40 mg SQ DAILY 02/11/18 Escitalopram Oxalate [Lexapro -] 20 mg PO DAILY 02/11/18 Esomeprazole Magnesium 40 mg PO BID 02/11/18 HYDROmorphone [Dilaudid -] 2 mg PO Q6H 02/11/18 LORazepam [Ativan] 1 mg PO DAILY 02/11/18 Review of Systems - Review of Systems Comments:: General: No fevers, no chills, no weight or appetite change, no malaise HEENT: No changes in vision, no changes in hearing, no congestion, no sore throat CV: No chest pain, no palpitations, no LE edema Pulm: No SOB, no cough, no wheezing. +pleuritic back pain GI: No nausea or vomiting, no change in bowel habits, no melena : No frequency, no urgency, no dysuria, +ESRD on HD Musc: No recent injury. +chronic LE edema. See HPI Skin: No rash, no lesions, no erythema Endo: No excessive thirst, no heat/cold intolerance Heme: No unusual bruising or bleeding, no swollen glands. Anticoagulated w/ lovenox Neuro: No syncope, no numbness/tingling, no focal weakness Vasc: No claudication. h/o multiple failed AVF Psych: No recent change in mood, no SI or HI <Anahi Oropeza - Last Filed: 02/12/18 00:13> *Physical Exam - Vital Signs Last Vital Signs Temp Pulse Resp BP Pulse Ox 98.4 F 90 16 169/99 96 02/11/18 18:38 02/11/18 18:38 02/11/18 18:38 02/11/18 18:38 02/11/18 18:38 <Veronica Tran - Last Filed: 02/11/18 23:02> - Vital Signs Last Vital Signs Temp Pulse Resp BP Pulse Ox 98.4 F 90 16 169/99 96 02/11/18 18:38 02/11/18 18:38 02/11/18 18:38 02/11/18 18:38 02/11/18 18:38 - Physical Exam Comments: General: Comfortable, no acute distress HEENT: PERRL, EOMI, MMM, voice normal, normal neck ROM, no LAD Cards: RRR, no murmur appreciated Pulm: Slight dyspnea. Lungs clear to auscultation bilaterally Abd: Soft, nontender, nondistended Back: TTP on left back : No CVA tenderness Rectal: Normal tone, no blood noted, no perianal lesions Ext: Atraumatic. No LE edema. ROM intact. Strength 5/5 and equal bilaterally Vasc: Extremities WWP. Palpable radial and pedal pulses bilaterally Neuro: A&Ox3, CN grossly intact, normal speech, motor/sensory grossly intact and symmetric Psych: Mood appropriate to situation <Anahi Oropeza - Last Filed: 02/12/18 00:13> ED Treatment Course - RADIOLOGY Radiology Studies Ordered: Category Date Time Status DUPLEX VASCUL US-1 LEG [US] Stat Ultrasound 02/11/18 20:34 Taken - Medications Given in the ED: ED Medications Discontinued Medications Generic Name Dose Route Start Last Admin Trade Name Amanda PRN Reason Stop Dose Admin Alteplase, Recombinant 2 mg 02/11/18 20:32 02/11/18 20:51 Cathflo Activase - IVPUSH 02/11/18 20:33 2 mg ONCE ONE Administration Oxycodone/Acetaminophen 2 combo 02/11/18 20:47 02/11/18 20:56 Percocet 5/325 - PO 02/11/18 20:48 2 combo ONCE ONE Administration <Veronica Tran - Last Filed: 02/11/18 23:02> Medical Decision Making - Medical Decision Making 02/11/18 20:49 Denita Rubio is a 53yo woman with a PMH of ESRD on HD, HTN, DM, h/o DVT on lovenox who presents with worsening RLE edema and thigh pain, pleuritic left back pain, and a clogged dialysis catheter. - Anticoagulated but h/o DVT, RLE swelling, and pleuritic chest pain. Duplex US ordered to evaluate for DVT. CXR ordered - Alteplase ordered for clogged dialysis catheter. Injected, currently dwelling. - Vascular surgery contacted regarding catheter. - Oxycodone/acetaminohpen for pleuritic pain Update: - Dialysis catheter was cleared and could flush/draw after allowing tPA to dwell for 30 minutes - Some improvement in pain with oxycodone/acetaminophen - Duplex US negative for DVT - Will discharge home. Should follow up with Dr Crabtree due to repeated episodes of dialysis catheter clotting Seen with Dr Tran. <Anahi Oropeza - Last Filed: 02/12/18 00:13> *DC/Admit/Observation/Transfer <Veronica Tran - Last Filed: 02/11/18 23:02> <Anahi Oropeza - Last Filed: 02/12/18 00:13> Diagnosis at time of Disposition: Dialysis catheter clot or failure - Discharge Dispostion Disposition: HOME Condition at time of disposition: Improved - Patient Instructions Printed Discharge Instructions: Weight Loss Aids (Alternative Therapy), Weight Loss: What Are Your Options?, Combination of Diet and Exercise May be Most Effective Weight Loss Tool for, Water Before Meals May Promote Weight Loss
[2018-02-11] MEDS ORDERED: ALTEPLASE 2 MG VIAL IVPUSH ONE (20:32)
[2018-02-11] MEDS ORDERED: ALTEPLASE 2 MG VIAL ONE (20:35)
[2018-02-12 02:54] VITALS: BP 128/75; PULSE 76; TEMP 97.9
== END 2018-02-12 01:32 | disposition home or self-care (01) ==
LOC: JER 18:12
PROC: 3E033GC Introduction of Other Therapeutic Substance into Peripheral Vein, Percutaneous Approach (ICD-10-PCS; principal; 2018-02-11)
DX: T82.9XXA Unspecified complication of cardiac and vascular prosthetic device, implant and graft, initial encounter (principal); R05 Cough; E11.22 Type 2 diabetes mellitus with diabetic chronic kidney disease; I12.0 Hypertensive chronic kidney disease with stage 5 chronic kidney disease or end stage renal disease; N18.6 End stage renal disease; Z99.2 Dependence on renal dialysis; J45.909 Unspecified asthma, uncomplicated
CPT/HCPCS: 93971-TC; 99284-25; J2997

== ENCOUNTER 2018-03-20 15:25 | Observation (INO) | payer OTHER ==
--- NOTE | 2018-03-20 15:51 | PDOC ---
Rapid Medical Evaluation Time Seen by Provider: 03/20/18 15:46 Medical Evaluation: Allergies Allergy/AdvReac Type Severity Reaction Status Date / Time No Known Allergies Allergy Verified 03/20/18 15:47 03/20/18 15:47 Pt presents to the ED for a blocked L permacath. Pt states they were unable to access the catheter for dialysis today. Last dialyzed on Monday. Exam: NAD. In wheel chair. L supraclavicular permacath Orders: Labs, EKG, IV Pt to proceed to ED for further eval Dialysis Monday, , Monday Vascular: Dr. Crabtree. Discharge Disposition - Diagnosis ESRD (end stage renal disease) on dialysis, Clotted vascular catheter - Referrals - Patient Instructions - Post Discharge Activity
[2018-03-20 15:52] VITALS: BMI 39.4
--- NOTE | 2018-03-20 16:09 | PDOC ---
History of Present Illness - General Chief Complaint: Dialysis Shunt Problem Stated Complaint: CATHETER MALFUNCTION (DIALYSIS PT) Time Seen by Provider: 03/20/18 15:46 - History of Present Illness Initial Comments: 03/20/18 17:22 The patient is a 53 year old female with a history of HTN, DM, ESRD on dialysis (T, Th, S) who presents for evaluation of a clogged permicatheter. The patient notes that her last dialysis was 3 days ago and when presenting for dialysis today, they were unable to us her permicath as it had clotted off. The patient notes that she has a long history of clotted permicath with multiple replacements the most recent of which was 1 month ago when the permicath was declogged with tPA. The patient states that her vascular surgeon is Dr. Crabtree and she is currently being evaluated for other dialysis options given her recurrent permicather clogs despite on enoxaparin. The patient otherwise denies fevers, chills, SOB, chest pain, nausea, vomiting, abdominal pain, or changes with urination or bowel movements. Past History - Past Medical History Allergies/Adverse Reactions: Allergies Allergy/AdvReac Type Severity Reaction Status Date / Time No Known Allergies Allergy Verified 03/20/18 15:47 Home Medications: Ambulatory Orders Furosemide [Lasix] 80 mg PO DAILY 05/11/17 Pregabalin [Lyrica] 100 mg PO DAILY 05/11/17 Simvastatin 40 mg PO DAILY 05/11/17 Docusate Sodium [Colace] 100 mg PO DAILY 10/16/17 Quetiapine Fumarate [Seroquel -] 200 mg PO HS 10/16/17 oxyCODONE HCL [Roxicodone -] 10 mg PO Q4H PRN tablet MDD 6 10/27/17 Aspirin Coated [Ecotrin -] 81 mg PO DAILY #30 tablet.ec 11/10/17 Amitriptyline HCl [Elavil -] 100 mg PO DAILY 02/11/18 Calcium Acetate 2 cap PO TID 02/11/18 Cetirizine HCl 10 mg PO DAILY 02/11/18 Diphenhydramine HCl 25 mg PO DAILY 02/11/18 Enoxaparin Sodium 40 mg SQ DAILY 02/11/18 Escitalopram Oxalate [Lexapro -] 20 mg PO DAILY 02/11/18 Esomeprazole Magnesium 40 mg PO BID 02/11/18 HYDROmorphone [Dilaudid -] 2 mg PO Q6H 02/11/18 LORazepam [Ativan] 1 mg PO DAILY 02/11/18 Anemia: No Asthma: Yes Cancer: No Cardiac Disorders: No CVA: No COPD: No CHF: No Dementia: No Diabetes: Yes (DM) Dialysis: Yes (-) GI Disorders: Yes (UMBALICAL HERNIA) Disorders: No HTN: Yes Hypercholesterolemia: No Liver Disease: No Psychiatric Problems: Yes (PTSD) Seizures: No Thyroid Disease: No - Surgical History Abdominal Surgery: Yes (UMB.HERNIA X 5 / mesh placement x2 /) Appendectomy: No Cardiac Surgery: No Cholecystectomy: No GI Surgery: Yes Lung Surgery: No Neurologic Surgery: No - Immunization History Immunization Up to Date: Yes - Suicide/Smoking/Psychosocial Hx Smoking Status: Yes Smoking History: Current some day smoker Have you smoked in the past 12 months: Yes Number of Cigarettes Smoked Daily: 6 Information on smoking cessation initiated: No 'Breaking Loose' booklet given: 11/17/17 Hx Alcohol Use: No Drug/Substance Use Hx: No Substance Use Type: None Hx Substance Use Treatment: No Review of Systems - Review of Systems Comments:: 03/20/18 17:26 Constitutional: No fevers, chills, fatigue, malaise HEENT: No Rhinorrhea, nasal congestion, visual changes Cardiovascular: No chest pain, syncope, palpitations, lightheadedness Respiratory: No Cough, SOB, Hemoptysis, Gastrointestinal: No Abdominal pain, Nausea, Vomiting, Constipation, Diarrhea, Melena Genitourinary: No Dysuria, Frequency, Urgency, Hesitancy, Hematuria, Flank pain Musculoskeletal: No Myalgia, arthralgia Skin: No rashes, itching, bruising, pallor Neurologic: No Headache, Dizziness, Numbness, Weakness, or Tingling Psychiatric: No Hallucinations. No SI or HI *Physical Exam - Vital Signs Last Vital Signs Temp Pulse Resp BP Pulse Ox 97.5 F L 94 H 19 141/103 95 03/20/18 15:47 03/20/18 15:47 03/20/18 15:47 03/20/18 15:47 03/20/18 15:47 - Physical Exam Comments: 03/20/18 17:26 General Appearance: Nourished. No Apparent Distress HEENT: No Pharyngeal Erythema, Tonsillar Exudate, Tonsillar Erythema Neck: No Cervical Lymphadenopathy Respiratory/Chest: Lungs Clear, Normal Breath Sounds. Left Permicath in place. No Crackles, Rales, Rhonchi, Wheezing Cardiovascular: Regular Rhythm, Regular Rate. No Murmur, Gallops, Rubs Gastrointestinal/Abdominal: Normal Bowel Sounds, Soft. No Guarding, Rebound, Tenderness Musculoskeletal: No CVA Tenderness Extremity: Normal Capillary Refill Integumentary: Normal Color, Dry, Warm Neurologic: Fully Oriented, Alert, Normal Mood/Affect, Normal Response, Heart Score/ECG Review #1 ECG reviewed & interpreted by me at: 17:30 General ECG Interpretation: Sinus Rhythm, Normal Rate, Normal Intervals, No acute ischemic changes ED Treatment Course - LABORATORY CBC & Chemistry Diagram: 03/20/18 16:34 03/20/18 16:34 Medical Decision Making - Medical Decision Making 03/20/18 17:29 The patient is a 53 year old female with a history of HTN, DM, ESRD on dialysis (T, Th, S) who presents for evaluation of a clogged permicatheter. Given the patient's history and physical exam, we will obtain a cbc, cmp, coags, ekg, type and screen to evaluate further. We will consult with Dr. Crabtree regarding the plan for the patients clotted permicath. We will continue to monitor and reassess while here in the ED. 03/20/18 18:42 cbc is unremarkable. CMP demonstrates a potassium of 5.2 and creatinine of 11. Given the patient's recent clotted pericath one month ago and missed dialysis , we believe the patient requires observation admission for further monitor and and vascular consultation. We discussed the case with the admitting team who accepted the patient for admission. *DC/Admit/Observation/Transfer Diagnosis at time of Disposition: ESRD (end stage renal disease) on dialysis Clotted vascular catheter Qualifiers: Encounter type: initial encounter Qualified Code(s): T82.898A - Other specified complication of vascular prosthetic devices, implants and grafts, initial encounter - Discharge Dispostion Condition at time of disposition: Stable Decision to Admit order: Yes - Referrals Referrals: Elvis Lau MD [Primary Care Provider] - - Patient Instructions - Post Discharge Activity
--- NOTE | 2018-03-20 16:44 | PDOC ---
Attending Attestation - Resident Resident Name: Alfonso Sesayel - ED Attending Attestation I have performed the following: I have examined & evaluated the patient, The case was reviewed & discussed with the resident, I agree w/resident's findings & plan, Exceptions are as noted - HPI HPI: 03/20/18 16:41 53 F with ESRD on HD //, DM, HTN, h/o DVT on lovenox, GA, chronic pain, presenting to ED with clogged HD catheter. Pt states that she went to HD today but they were unable to initiate it due to malfunction with her HD catheter. Pt has had this issue in the past. Pt denies any complaints currently, denies CP/ SOB. Pt's last HD was last Monday. - Physicial Exam PE: 03/20/18 16:43 "GENERAL: Awake, alert, and fully oriented, in no acute distress. HEAD: No signs of trauma EYES: PERRLA, EOMI, sclera anicteric, conjunctiva clear ENT: Auricles normal inspection, hearing grossly normal, nares patent, oropharynx clear without exudates. Moist mucosa NECK: Nontender, no stepoffs, Normal ROM, supple, no lymphadenopathy, JVD, or masses LUNGS: Breath sounds equal, clear to auscultation bilaterally. No wheezes, and no crackles HEART: Regular rate and rhythm, normal S1 and S2, no murmurs, rubs or gallops ABDOMEN: Soft, nontender, normoactive bowel sounds. No guarding, no rebound. No masses EXTREMITIES: Normal range of motion, no edema. No clubbing or cyanosis. No cords, erythema, or tenderness NEUROLOGICAL: Cranial nerves II through XII intact. 5/5 strength and sensation in all extremities, Normal speech, normal gait, normal cerebellar function SKIN: Warm, Dry, normal turgor, no rashes or lesions noted." - Medical Decision Making 03/20/18 16:43 53 F with HD catheter malfunction. No complaints at this time. - Labs - Consult Dr. Crabtree - Renal c/s for HD 03/20/18 17:48 Labs notable for K 5.2, EKG with no changes No indication for emergent HD. Will admit for vascular evaluation
[2018-03-20 16:46] LABS: BASO % 0.4 % (0-2.0); EOS % 1.8 % (0-4.5); HEMATOCRIT 32.9 % (32.4-45.2); HEMOGLOBIN 10.4 GM/dL (10.7-15.3); LYMPH % 29.6 % (8-40); MCH 29.6 pg (25.7-33.7); MCHC 31.7 g/dl (32.0-36.0); MEAN CELL VOLUME 93.4 fl (80-96); MEAN PLT VOLUME 9.2 fl (7.5-11.1); NEUT % 63.2 % (42.8-82.8); PLATELET COUNT 125 K/MM3 (134-434); RBC 3.52 M/mm3 (3.60-5.2); WHITE BLOOD COUNT 4.5 K/mm3 (4.0-10.0)
[2018-03-20 17:06] LABS: MAGNESIUM 1.7 mg/dL (1.8-2.4); PHOSPHOROUS 6.1 mg/dL (2.5-4.9)
[2018-03-20 17:08] LABS: INR 1.06 (0.83-1.09)
[2018-03-20 17:09] LABS: ALBUMIN 2.5 g/dl (3.4-5.0); ANION GAP 15 MMOL/L (8-16); BILIRUBIN,TOTAL 0.4 mg/dL (0.2-1.0); BLOOD UREA NITROGEN 79 mg/dL (7-18); CALCIUM 8.5 mg/dL (8.5-10.1); CHLORIDE 104 mmol/L (98-107); CO2 21 mmol/L (21-32); GLUCOSE,RANDOM 77 mg/dL (74-106); POTASSIUM 5.2 mmol/L (3.5-5.1); SGOT/AST 10 U/L (15-37); SGPT/ALT 9 U/L (12-78); SODIUM 140 mmol/L (136-145); TOT PROT 7.2 g/dl (6.4-8.2)
[2018-03-20 17:10] LABS: ALK PHOS 90 U/L (45-117)
[2018-03-20 17:12] LABS: CREATININE 11.1 mg/dL (0.55-1.02)
[2018-03-20] MEDS ORDERED: oxyCODONE HCL 5 MG TABLET PO PRN (19:43)
[2018-03-20] MEDS ORDERED: LORazepam 1 MG TABLET PO PRN (19:43)
[2018-03-20] MEDS ORDERED: PANTOPRAZOLE 40 MG TABLET (FP) ONE (21:48)
[2018-03-20] MEDS ORDERED: QUEtiapine FUMARATE 100 MG TABLET (FP) ONE (21:48)
[2018-03-20] MEDS ORDERED: ATORVASTATIN CA 10 MG TABLET (FP) ONE (21:48)
[2018-03-20] MEDS ORDERED: DOCUSATE SODIUM 100 MG CAPSULE (FP) PO ONE (21:49)
[2018-03-20] MEDS: DOCUSATE SODIUM 100 MG CAPSULE (FP) PO SCH (21:56)
[2018-03-20] MEDS: PANTOPRAZOLE 40 MG TABLET (FP) PO SCH (21:56)
[2018-03-20] MEDS ORDERED: QUEtiapine FUMARATE 200 MG TABLET PO SCH (22:00)
[2018-03-20] MEDS ORDERED: ATORVASTATIN CA 20 MG TABLET (FP) PO SCH (22:00)
[2018-03-21] MEDS ORDERED: DOCUSATE SODIUM 100 MG CAPSULE (FP) PO ONE (06:15)
[2018-03-21] MEDS: DOCUSATE SODIUM 100 MG CAPSULE (FP) PO SCH ×2 (06:22→14:26)
[2018-03-21] MEDS: SEVELAMER CARBONATE 800 MG TAB (FP) PO SCH ×2 (08:00→12:09)
--- NOTE | 2018-03-21 08:45 | HP ---
Admitting History and Physical - Primary Care Physician PCP: Elvis Lau - Admission Chief Complaint: dialysis access not working History Source: Patient Limitations to Obtaining History: No Limitations - Past Medical History Cardiovascular: Yes: HTN, Other (obesity) Pulmonary: Yes: Asthma, Sleep Apnea (on CPAP at home) Gastrointestinal: Yes: Constipation (chronic on opioids), Diverticulosis, GERD Renal/: Yes: Renal Failure (ESRD on HD for 4 years due to polycystic disease) , Hemodialysis Psych: Yes: Anxiety, Other (post traumatic stress disorder) Musculoskeletal: Yes: Chronic low back pain (on lyrica and percocet at home) Endocrine: Yes: Diabetes Mellitus, Hyperparathyroidism - Past Surgical History Past Surgical History: Yes: AV Fistula/Graft (R arm), Hernia Repair (x3) Additional Past Surgical History: abdominal surgery for small bowel obstruction with prolonged wound healing - Smoking History Smoking history: Current some day smoker Have you smoked in the past 12 months: Yes Aproximately how many cigarettes per day: 6 - Alcohol/Substance Use Hx Alcohol Use: No - Social History ADL: Support Services (has an aid now, has 2 kids [employer] 5 hrs/ 7 days a week) History of Recent Travel: No Home Medications - Allergies Allergies/Adverse Reactions: Allergies Allergy/AdvReac Type Severity Reaction Status Date / Time No Known Allergies Allergy Verified 03/20/18 15:47 - Home Medications Home Medications: Ambulatory Orders Furosemide [Lasix] 80 mg PO DAILY 05/11/17 Pregabalin [Lyrica] 100 mg PO DAILY 05/11/17 Simvastatin 40 mg PO DAILY 05/11/17 Docusate Sodium [Colace] 100 mg PO DAILY 10/16/17 Quetiapine Fumarate [Seroquel -] 200 mg PO HS 10/16/17 oxyCODONE HCL [Roxicodone -] 10 mg PO Q4H PRN tablet MDD 6 10/27/17 Aspirin Coated [Ecotrin -] 81 mg PO DAILY #30 tablet.ec 11/10/17 Amitriptyline HCl [Elavil -] 100 mg PO DAILY 02/11/18 Calcium Acetate 2 cap PO TID 02/11/18 Cetirizine HCl 10 mg PO DAILY 02/11/18 Diphenhydramine HCl 25 mg PO DAILY 02/11/18 Enoxaparin Sodium 40 mg SQ DAILY 02/11/18 Escitalopram Oxalate [Lexapro -] 20 mg PO DAILY 02/11/18 Esomeprazole Magnesium 40 mg PO BID 02/11/18 HYDROmorphone [Dilaudid -] 2 mg PO Q6H 02/11/18 LORazepam [Ativan] 1 mg PO DAILY 02/11/18 Family Disease History - Family Disease History Family Disease History: Other: Mother (polycystic disease, CVA, brain aneurysm) , Son, Daughter Review of Systems - Review of Systems Constitutional: reports: No Symptoms Eyes: reports: No Symptoms HENT: reports: No Symptoms Neck: reports: No Symptoms Cardiovascular: reports: No Symptoms Respiratory: reports: No Symptoms Gastrointestinal: reports: No Symptoms Genitourinary: reports: No Symptoms Musculoskeletal: reports: Back Pain, Other (chronic leg pains) Physical Examination Vital Signs: Vital Signs Temperature 98 F 03/21/18 07:30 Pulse Rate 75 03/21/18 07:30 Respiratory Rate 18 03/21/18 07:30 Blood Pressure 109/67 03/21/18 07:30 O2 Sat by Pulse Oximetry (%) 97 03/21/18 07:30 Constitutional: Yes: Well Nourished, No Distress, Calm, Obese Eyes: Yes: WNL HENT: Yes: WNL Neck: Yes: WNL Cardiovascular: Yes: WNL, Regular Rate and Rhythm Respiratory: Yes: WNL, CTA Bilaterally Gastrointestinal: Yes: WNL, Normal Bowel Sounds, Soft Musculoskeletal: Yes: Back Pain Edema: Yes Edema: LLE: 2+ (pedal), RLE: 2+ (pedal) Peripheral Pulses WNL: Yes Integumentary: Yes: WNL Neurological: Yes: WNL Labs: CBC, BMP 03/20/18 16:34 03/20/18 16:34 Problem List - Problems (1) Clotted vascular catheter Code(s): T82.898A - OTH COMPLICATION OF VASCULAR PROSTH DEV/GRFT, INIT Qualifiers: Encounter type: initial encounter Qualified Code(s): T82.898A - Other specified complication of vascular prosthetic devices, implants and grafts, initial encounter (2) ESRD (end stage renal disease) on dialysis Code(s): N18.6 - END STAGE RENAL DISEASE; Z99.2 - DEPENDENCE ON RENAL DIALYSIS (3) Chronic pain disorder Code(s): G89.4 - CHRONIC PAIN SYNDROME (4) HTN (hypertension) Code(s): I10 - ESSENTIAL (PRIMARY) HYPERTENSION Qualifiers: Hypertension type: essential hypertension (5) GA on CPAP Code(s): G47.33 - OBSTRUCTIVE SLEEP APNEA (ADULT) (PEDIATRIC) (6) Obesity Code(s): E66.9 - OBESITY, UNSPECIFIED Qualifiers: Obesity type: due to excess calories Obesity classification: adult class 3 (BMI >= 40) Serious obesity comorbidity presence: with serious comorbidity (7) PTSD (post-traumatic stress disorder) Code(s): F43.10 - POST-TRAUMATIC STRESS DISORDER, UNSPECIFIED Assessment/Plan vascular evaluation for catheter access HD afterwards may benefit form [facility] lovenox as dvt prophylaxis peritoneal dialysis has been discussed with pt, though with h/o sbo and multiple hernia repairs is high risk for complications
[2018-03-21] MEDS ORDERED: ENOXAPARIN NA (PORCINE) 40 MG/0.4 ML DISP.SYRIN SQ SCH (10:00)
[2018-03-21] MEDS ORDERED: PREGABALIN 100 MG CAPSULE PO SCH (10:00)
[2018-03-21] MEDS ORDERED: FUROSEMIDE 40 MG TABLET (FP) PO SCH (10:00)
--- NOTE | 2018-03-21 11:50 | EKG ---
Test Reason : Blood Pressure : / mmHG Vent. Rate : 081 BPM Atrial Rate : 081 BPM P-R Int : 198 ms QRS Dur : 104 ms QT Int : 392 ms P-R-T Axes : 048 -04 036 degrees QTc Int : 455 ms NORMAL SINUS RHYTHM POSSIBLE LEFT ATRIAL ENLARGEMENT LOW VOLTAGE QRS BORDERLINE ECG WHEN COMPARED WITH ECG OF 16-NOV-2017 22:37, NO SIGNIFICANT CHANGE WAS FOUND Confirmed by ЕКАТЕРИНА VALE, YAW ([id number]) on 03/21/2018 11:50:19 AM Referred By: Confirmed By:YAW WILLAMS MD
[2018-03-21] MEDS ORDERED: FUROSEMIDE 40 MG TABLET (FP) ONE (12:01)
[2018-03-21] MEDS ORDERED: PANTOPRAZOLE 40 MG TABLET (FP) ONE (12:02)
[2018-03-21] MEDS ORDERED: PREGABALIN 100 MG CAPSULE ONE (12:02)
[2018-03-21] MEDS: PANTOPRAZOLE 40 MG TABLET (FP) PO SCH (12:04)
[2018-03-21 12:38] LABS: ANION GAP 13 MMOL/L (8-16); BLOOD UREA NITROGEN 91 mg/dL (7-18); CALCIUM 8.5 mg/dL (8.5-10.1); CHLORIDE 104 mmol/L (98-107); CO2 21 mmol/L (21-32); GLUCOSE,RANDOM 68 mg/dL (74-106); POTASSIUM 5.7 mmol/L (3.5-5.1); SODIUM 138 mmol/L (136-145)
[2018-03-21 12:41] LABS: CREATININE 11.9 mg/dL (0.55-1.02)
--- NOTE | 2018-03-21 13:16 | CONSULT ---
Consult Consult Specialty:: Nephrology Reason for Consultation:: ESRD - History of Present Illness Chief Complaint: HD catheter clotted History of Present Illness: Pt is a 53 year old female with pmhx of HTN, DM, and ESRD on TTS schedule who presents to the ER with a clotted permacath. She last went to HD on Monday and had a full treatment. She went yesterday and they were unable to dialyze her. She denies shortness of breath or palpitations. She has had multiple access failures in the past. She denies chest pain or palpitations. - History Source History Provided By: Patient - Past Medical History Cardio/Vascular: Yes: HTN, Other (obesity) Pulmonary: Yes: Asthma, Sleep Apnea (on CPAP at home) Gastrointestinal: Yes: Constipation (chronic on opioids), Diverticulosis, GERD Renal/: Yes: Renal Failure (ESRD on HD for 4 years due to polycystic disease) , Hemodialysis Psych: Yes: Anxiety, Other (post traumatic stress disorder) Musculoskeletal: Yes: Chronic low back pain (on lyrica and percocet at home) Endocrine: Yes: Diabetes Mellitus, Hyperparathyroidism - Past Surgical History Past Surgical History: Yes: AV Fistula/Graft (R arm), Hernia Repair (x3) - Alcohol/Substance Use Hx Alcohol Use: No - Smoking History Smoking history: Current some day smoker Have you smoked in the past 12 months: Yes Aproximately how many cigarettes per day: 6 - Social History Usual Living Arrangement: With Child ADL: Support Services (has an aid now, has 2 kids 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) History of Recent Travel: No Home Medications - Allergies Allergies/Adverse Reactions: Allergies Allergy/AdvReac Type Severity Reaction Status Date / Time No Known Allergies Allergy Verified 03/20/18 15:47 - Home Medications Home Medications: Ambulatory Orders RX: Furosemide [Lasix] 80 mg PO DAILY 05/11/17 RX: Pregabalin [Lyrica] 100 mg PO DAILY 05/11/17 RX: Simvastatin 40 mg PO DAILY 05/11/17 RX: Docusate Sodium [Colace] 100 mg PO DAILY 10/16/17 RX: Quetiapine Fumarate [Seroquel -] 200 mg PO HS 10/16/17 RX: oxyCODONE HCL [Roxicodone -] 10 mg PO Q4H PRN tablet MDD 6 10/27/17 RX: Aspirin Coated [Ecotrin -] 81 mg PO DAILY #30 tablet.ec 11/10/17 Amitriptyline HCl [Elavil -] 100 mg PO DAILY 02/11/18 Escitalopram Oxalate [Lexapro -] 20 mg PO DAILY 02/11/18 HYDROmorphone [Dilaudid -] 2 mg PO Q6H 02/11/18 LORazepam [Ativan] 1 mg PO DAILY 02/11/18 RX: Calcium Acetate 2 cap PO TID 02/11/18 RX: Cetirizine HCl 10 mg PO DAILY 02/11/18 RX: Diphenhydramine HCl 25 mg PO DAILY 02/11/18 RX: Enoxaparin Sodium 40 mg SQ DAILY 02/11/18 RX: Esomeprazole Magnesium 40 mg PO BID 02/11/18 Family Disease History - Family Disease History Family Disease History: Other: Mother (polycystic disease, CVA, brain aneurysm) , Son, Daughter Review of Systems - Review of Systems Constitutional: reports: No Symptoms Eyes: reports: No Symptoms HENT: reports: No Symptoms Neck: reports: No Symptoms Cardiovascular: reports: No Symptoms Respiratory: reports: No Symptoms Gastrointestinal: reports: No Symptoms Genitourinary: reports: No Symptoms Musculoskeletal: reports: No Symptoms Neurological: reports: No Symptoms Endocrine: reports: No Symptoms Hematology/Lymphatic: reports: No Symptoms Psychiatric: reports: No Symptoms Physical Exam Vital Signs: Vital Signs Temperature 97.7 F 03/21/18 12:41 Pulse Rate 76 03/21/18 12:41 Respiratory Rate 18 03/21/18 12:41 Blood Pressure 123/74 03/21/18 12:41 O2 Sat by Pulse Oximetry (%) 95 03/21/18 12:41 Constitutional: Yes: Calm Eyes: Yes: WNL Neck: Yes: Supple Cardiovascular: Yes: S1, S2 Respiratory: Yes: WNL Gastrointestinal: Yes: Soft, Abdomen, Obese Renal/: Yes: WNL Musculoskeletal: Yes: WNL Edema: No Neurological: Yes: Oriented Psychiatric: Yes: Oriented Labs: CBC, BMP 03/20/18 16:34 03/21/18 11:45 Laboratory Tests 03/20/18 03/20/18 03/21/18 16:34 16:34 11:45 WBC 4.5 Hgb 10.4 L Plt Count 125 L D Sodium 138 Potassium 5.2 H 5.7 H Chloride 104 Carbon Dioxide 21 BUN 79 H 91 H Creatinine 11.1 H* 11.9 H* Imaging - Results Chest X-ray: Report Reviewed Problem List - Problems (1) Clotted vascular catheter Code(s): T82.898A - OTH COMPLICATION OF VASCULAR PROSTH DEV/GRFT, INIT Qualifiers: Encounter type: initial encounter Qualified Code(s): T82.898A - Other specified complication of vascular prosthetic devices, implants and grafts, initial encounter (2) ESRD (end stage renal disease) on dialysis Code(s): N18.6 - END STAGE RENAL DISEASE; Z99.2 - DEPENDENCE ON RENAL DIALYSIS (3) Hyperkalemia Code(s): E87.5 - HYPERKALEMIA Assessment/Plan Current Medications Generic Name Dose Route Start Last Admin Trade Name Freq PRN Reason Stop Dose Admin Albuterol Sulfate 1 amp 03/21/18 12:48 Ventolin 0.083% Nebulizer Soln - NEB 03/21/18 12:49 ONCE ONE Atorvastatin Calcium 20 mg 03/20/18 22:00 03/20/18 21:56 Lipitor - PO 20 mg HS DAVID Administration Calcium Gluconate 1,000 mg 03/21/18 12:48 Calcium Gluconate 10% - IVPB 03/21/18 12:49 ONCE ONE Dextrose 25 gm 03/21/18 12:48 D50w (Vial) - IVPUSH 03/21/18 12:49 NOW ONE Docusate Sodium 100 mg 03/20/18 22:00 03/21/18 06:22 Colace - PO 100 mg TID DAVID Administration Enoxaparin Sodium 30 mg 03/22/18 10:00 Lovenox - SQ DAILY DAVID Furosemide 80 mg 03/21/18 10:00 03/21/18 12:04 Lasix - PO 80 mg DAILY DAVID Administration Insulin Human Regular 8 units 03/21/18 12:48 Novolin R Vial *For Ivpush Or Iv Drip Only* IVPUSH 03/21/18 12:49 ONCE ONE Lorazepam 1 mg 03/20/18 19:43 Ativan - PO BID PRN ANXIETY Oxycodone HCl 10 mg 03/20/18 19:43 Roxicodone - PO Q6H PRN PAIN LEVEL 4-6 Pantoprazole Sodium 40 mg 03/20/18 22:00 09/12/18 12:04 Protonix - PO 40 mg BID DAVID Administration Pregabalin 100 mg 03/21/18 10:00 03/21/18 12:04 Lyrica - PO 100 mg DAILY DAVID Administration Quetiapine Fumarate 200 mg 03/20/18 22:00 03/20/18 21:56 Seroquel - PO 200 mg HS DAVID Administration Sevelamer Carbonate 800 mg 03/21/18 08:00 03/21/18 12:09 Renvela - PO Not Given TIDCM DAVID Sodium Bicarbonate 50 meq 03/21/18 12:48 Sodium Bicarbonate 8.4% - IVPUSH 03/21/18 12:49 ONCE ONE Sodium Polystyrene Sulfonate 30 gm 03/21/18 12:48 Kayexalate - PO 03/21/18 12:49 ONCE ONE Impression 1. ESRD 2. permacath malfunction 3. sleep apnea 4. htn 5. dm 6. asthma 7. obesity 8. anxiety 9. hx of acute psychosis/delusions 10. hyperkalemia Plan - will treat potassium medically until HD access is obtained - keep pt NPO - called Dr Crabtree and he will place access today - will arrange for HD today as soon as access is in - will follow
[2018-03-21] MEDS ORDERED: SODIUM CHLORIDE 250 ML IV PRN ×2 (13:17→17:55)
[2018-03-21] MEDS ORDERED: CALCIUM GLUCONATE 10% - 1,000 MG/10 ML VIAL ONE (13:26)
[2018-03-21] MEDS ORDERED: DEXTROSE 50%-WATER 25 GM/50 ML DISP.SYRIN ONE (13:26)
[2018-03-21] MEDS ORDERED: SODIUM POLYSTYRENE SULFONATE 15 GM/60 ML BOTTLE ONE (13:27)
[2018-03-21] MEDS ORDERED: INSULIN REGULAR HUMAN 100 UNITS/ML *VIAL ONE (13:27)
[2018-03-21] MEDS ORDERED: ALBUTEROL SO4 0.083% IH SOL 2.5 MG/3 ML VIAL.NEB. NEB ONE ×2 (13:30→15:14)
[2018-03-21] MEDS ORDERED: INSULIN REGULAR HUMAN 100 UNITS/ML *VIAL IVPUSH ONE (13:30)
[2018-03-21] MEDS ORDERED: SODIUM POLYSTYRENE SULFONATE 15 GM/60 ML BOTTLE PO ONE (13:30)
[2018-03-21] MEDS ORDERED: CALCIUM GLUCONATE 10% - 1,000 MG/10 ML VIAL IVPB ONE (13:30)
[2018-03-21] MEDS ORDERED: SODIUM BICARBONATE 8.4% 50 MEQ/50 ML DISP.SYRIN IVPUSH ONE (13:30)
[2018-03-21] MEDS ORDERED: DEXTROSE 50%-WATER - 25 GM/50 ML VIAL IVPUSH ONE (13:30)
[2018-03-21] MEDS ORDERED: SODIUM BICARBONATE 8.4% 50 MEQ/50 ML VIAL ONE (15:14)
[2018-03-21] MEDS ORDERED: oxyCODONE HCL 5 MG TABLET ONE (15:22)
[2018-03-21] MEDS ORDERED: ONDANSETRON 4 MG/2 ML VIAL IVPUSH PRN ×2 (16:16→17:55)
[2018-03-21] MEDS ORDERED: MIDAZOLAM HCL 2 MG/2 ML SINGLE DOSE VIAL ONE (16:25)
[2018-03-21] MEDS ORDERED: PROPOFOL 20 ML ONE (16:25)
[2018-03-21] MEDS ORDERED: ceFAZolin SODIUM 1 GM VIAL IVPB ONE (16:52)
--- NOTE | 2018-03-21 17:16 | OP ---
Operative Note - Note: Operative Date: 03/21/18 Pre-Operative Diagnosis: malfunctioning permacath Operation: permacath exchange Post-Operative Diagnosis: Same as Pre-op Surgeon: Wilmer Crabtree Anesthesia: Fractional Estimated Blood Loss (mls): 10 Operative Report Dictated: Yes
[2018-03-21] MEDS ORDERED: oxyCODONE HCL 5 MG TABLET PO PRN (17:55)
[2018-03-21] MEDS ORDERED: LORazepam 1 MG TABLET PO PRN (17:55)
[2018-03-21] MEDS ORDERED: ATORVASTATIN CA 20 MG TABLET (FP) PO SCH (22:00)
[2018-03-21] MEDS ORDERED: QUEtiapine FUMARATE 200 MG TABLET PO SCH (22:00)
[2018-03-22] MEDS: PANTOPRAZOLE 40 MG TABLET (FP) PO SCH ×2 (00:42→09:23)
[2018-03-22] MEDS: DOCUSATE SODIUM 100 MG CAPSULE (FP) PO SCH ×2 (00:43→06:37)
[2018-03-22] MEDS ORDERED: SEVELAMER CARBONATE 800 MG TAB (FP) PO SCH (08:00)
--- NOTE | 2018-03-22 08:28 | OP ---
DATE OF OPERATION: 03/21/2018 PREOPERATIVE DIAGNOSIS: Malfunctioning Perma-cath. POSTOPERATIVE DIAGNOSIS: Malfunctioning Perma-cath. PROCEDURE: Perma-cath exchange. SURGEON: Wilmer Jackson DO ANESTHESIA: Fractional. BLOOD LOSS: 10 mL. The patient is a 53-year-old female that comes in with a left IJ Perma-cath that is malfunctioning and not working. It was decided that she would need to have it exchanged. The patient was consented for the procedure understanding all risks, benefits and alternatives. Was then taken to the operating room. Once in the operating room positioned on the operating table in the supine manner and the area of the left chest was prepped and draped in a sterile surgical manner. We then went ahead and dissected out the cuff using a mosquito clamp and the catheter was freed up. Patient was given 10 mL of lidocaine 1% in the area. We then placed up a 0.035 floppy guidewire under fluoroscopy. Catheter was removed. We then changed our gloves for sterility purposes. A new 22 Perma-cath was placed over the guidewire and into the vein and into the chest under fluoroscopy. Guidewire was removed. We then deya back on each port of the catheter and there was good flow. Heparinized saline was injected and 2000 units of IV heparin was injected in each port. Biosyn 4-0 was used and 2 simple stitches were placed around the exit site. A Biopatch was placed. We then used 3-0 nylon and the catheter was attached to the skin; 4 x 4 Tegaderms were placed. The patient tolerated the procedure with no complication. The patient was transferred to the PACU in stable condition. WILMER JACKSON DO LIVESTOCK SHOWMAN/[id number]
--- NOTE | 2018-03-22 08:58 | DS ---
Physical Examination Vital Signs: Vital Signs Temperature 97.6 F 03/22/18 05:30 Pulse Rate 54 L 03/22/18 05:30 Respiratory Rate 18 03/21/18 22:51 Blood Pressure 149/73 03/22/18 05:30 O2 Sat by Pulse Oximetry (%) 97 03/21/18 22:51 Constitutional: Yes: Calm Eyes: Yes: EOM Intact HENT: Yes: Normocephalic Neck: Yes: Trachea Midline Cardiovascular: Yes: Regular Rate and Rhythm Respiratory: Yes: CTA Bilaterally Gastrointestinal: Yes: Normal Bowel Sounds, Soft Edema: No Peripheral Pulses WNL: Yes Labs: CBC, BMP 03/20/18 16:34 03/21/18 11:45 Discharge Summary Reason For Visit: CLOTTED VASCULAR CATHETER; END STAGE RENAL DISEASE Current Active Problems Clotted vascular catheter (Acute) ESRD (end stage renal disease) on dialysis (Acute) Hospital Course: admitted for malfunctioning permacath. Catheter was changed over guide wire, received hemodialysis afterwards without issues. currently without complaints, stable to la home, f/up at regular HD days. resume lovenox 30 md sc daily. otherwise continue usual home medications. Condition: Stable - Instructions Diet, Activity, Other Instructions: resume HD as scheduled Referrals: Elvis Lau MD [Primary Care Provider] - Disposition: HOME - Home Medications Comprehensive Discharge Medication List: Ambulatory Orders Furosemide [Lasix] 80 mg PO DAILY 05/11/17 Pregabalin [Lyrica] 100 mg PO DAILY 05/11/17 Simvastatin 40 mg PO DAILY 05/11/17 Docusate Sodium [Colace] 100 mg PO DAILY 10/16/17 Quetiapine Fumarate [Seroquel -] 200 mg PO HS 10/16/17 oxyCODONE HCL [Roxicodone -] 10 mg PO Q4H PRN tablet MDD 6 10/27/17 Aspirin Coated [Ecotrin -] 81 mg PO DAILY #30 tablet.ec 11/10/17 Amitriptyline HCl [Elavil -] 100 mg PO DAILY 02/11/18 Calcium Acetate 2 cap PO TID 02/11/18 Cetirizine HCl 10 mg PO DAILY 02/11/18 Diphenhydramine HCl 25 mg PO DAILY 02/11/18 Enoxaparin Sodium 40 mg SQ DAILY 02/11/18 Escitalopram Oxalate [Lexapro -] 20 mg PO DAILY 02/11/18 Esomeprazole Magnesium 40 mg PO BID 02/11/18 LORazepam [Ativan] 1 mg PO DAILY 02/11/18 Enoxaparin [Lovenox -] 30 mg SQ DAILY #30 disp.syrin 03/22/18 Sevelamer Carbonate [Renvela -] 800 mg PO TIDCM tab 03/22/18
[2018-03-22] MEDS ORDERED: FUROSEMIDE 40 MG TABLET (FP) PO SCH (10:00)
[2018-03-22] MEDS ORDERED: ENOXAPARIN NA (PORCINE) 30 MG/0.3 ML DISP.SYRIN SQ SCH ×2 (10:00)
[2018-03-22] MEDS ORDERED: PREGABALIN 100 MG CAPSULE PO SCH (10:00)
[2018-03-22 10:05] VITALS: BP 144/72; PULSE 66; TEMP 97.9
--- NOTE | 2018-03-23 09:46 | PATH ---
Surgical Pathology Report Patient Name: RENEE ADAN Med. Rec. #: [id number] /Age/Gender: 1965 (Age: 53) / F Account: [id number] Location: [address] [place] [address] Taken: 03/21/2018 Received: 03/22/2018 Reported: 03/23/2018 Physicians: PHYSICIAN EMERGENCY DEPT Specimen(s) Received REMOVED PERMA CATHETER Clinical History Permacath exchange Final Diagnosis PERMACATH, REMOVAL: CATHETER (PERMACATH). MACROSCOPIC DIAGNOSIS. Electronically Signed Alma La M.D. Gross Description Received fresh labeled "removed permacath," is a 36 cm in length of double lumen catheter. No soft tissue is present. No sections are submitted, gross only. /03/22/201803/22/2018
[2018-03-24 00:12] LABS: HBSAG SCREEN Negative (Negative); HEP A AB, IGM Negative (Negative); HEP B CORE AB, TOT Negative (Negative)
== END 2018-03-22 09:48 | disposition home or self-care (01) ==
LOC: JER 15:25 → JERBED 18:20 → J6S 03-21 22:06
PROVIDERS: ADMIT Internal Medicine; ATTEND Internal Medicine
PROC: 0J2TXYZ Change Other Device in Trunk Subcutaneous Tissue and Fascia, External Approach (ICD-10-PCS; principal; 2018-03-20)
PROC: 3E03329 Introduction of Other Anti-infective into Peripheral Vein, Percutaneous Approach (ICD-10-PCS; 2018-03-20)
PROC: 3E033VG Introduction of Insulin into Peripheral Vein, Percutaneous Approach (ICD-10-PCS; 2018-03-20)
PROC: 3E033GC Introduction of Other Therapeutic Substance into Peripheral Vein, Percutaneous Approach (ICD-10-PCS; 2018-03-20)
PROC: 3E0337Z Introduction of Electrolytic and Water Balance Substance into Peripheral Vein, Percutaneous Approach (ICD-10-PCS; 2018-03-20)
PROC: 3E0F7GC Introduction of Other Therapeutic Substance into Respiratory Tract, Via Natural or Artificial Opening (ICD-10-PCS; 2018-03-20)
DX: T82.49XA Other complication of vascular dialysis catheter, initial encounter (principal); Y82.8 Other medical devices associated with adverse incidents; Y92.9 Unspecified place or not applicable; E11.22 Type 2 diabetes mellitus with diabetic chronic kidney disease; I12.0 Hypertensive chronic kidney disease with stage 5 chronic kidney disease or end stage renal disease; N18.6 End stage renal disease; Z99.2 Dependence on renal dialysis; J45.909 Unspecified asthma, uncomplicated; F43.10 Post-traumatic stress disorder, unspecified; F17.210 Nicotine dependence, cigarettes, uncomplicated; F41.9 Anxiety disorder, unspecified; G47.33 Obstructive sleep apnea (adult) (pediatric); Z99.89 Dependence on other enabling machines and devices; K21.9 Gastro-esophageal reflux disease without esophagitis; G89.4 Chronic pain syndrome; E87.5 Hyperkalemia; E66.9 Obesity, unspecified; Z68.29 Body mass index [BMI] 29.0-29.9, adult; Z79.82 Long term (current) use of aspirin
CPT/HCPCS: 36415; 71045-TC-FY; 76000-TC-FY; 77001-TC-FY; 80048; 80053; 83735; 84100; 85025; 85610; 86704; 86706; 86708; 86803; 86850; 86900; 86901; 87340; 88300-TC; 93005; 93010; 94640; 94760; 96372; 96374; 96375; 99284-25; G0378; J1644

== ENCOUNTER 2018-06-25 12:36 | Inpatient (IN) | payer OTHER ==
[2018-06-25] MEDS ORDERED: ALBUTEROL SO4 2.5/IPRATROPIUM 0.5 INH SOL 3 ML VIAL.NEB. NEB ONE (13:40)
[2018-06-25] MEDS ORDERED: morphine CARPU-JECT 4 MG/1 ML DISP.SYRIN IVPUSH ONE (13:48)
--- NOTE | 2018-06-25 15:04 | CONSULT ---
Consult Consult Specialty:: Nephrology Reason for Consultation:: ESRD - History of Present Illness Chief Complaint: abdominal pain History of Present Illness: Pt is a 53 year old female with pmhx of ESRD, DM, HTN, psychosis, and anemia who presents to the ER with abdominal pain. Pain is in the middle of her abdomen above the umbilicus. She was last dialyzed on . She says that she did not go to HD on Monday secondary to the abdominal pain. Pt has poor vasculature. I was called as she is a dialysis patient and she needed blood to be drawn from the permacath. She denies fevers. She complains of vomiting. She denies chest pain or palpitations. - History Source History Provided By: Patient - Past Medical History Cardio/Vascular: Yes: HTN, Other (obesity) Pulmonary: Yes: Asthma, Sleep Apnea (on CPAP at home) Gastrointestinal: Yes: Constipation (chronic on opioids), Diverticulosis, GERD Renal/: Yes: Renal Failure (ESRD on HD for 4 years due to polycystic disease) , Hemodialysis Psych: Yes: Anxiety, Other (post traumatic stress disorder) Musculoskeletal: Yes: Chronic low back pain (on lyrica and percocet at home) Endocrine: Yes: Diabetes Mellitus, Hyperparathyroidism - Past Surgical History Past Surgical History: Yes: AV Fistula/Graft (R arm), Hernia Repair (x3) - Alcohol/Substance Use Hx Alcohol Use: No - Smoking History Smoking history: Current every day smoker Have you smoked in the past 12 months: Yes Aproximately how many cigarettes per day: 20 - Social History Usual Living Arrangement: With Child ADL: Support Services (has an aid now, 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) History of Recent Travel: No Home Medications - Allergies Allergies/Adverse Reactions: Allergies Allergy/AdvReac Type Severity Reaction Status Date / Time No Known Allergies Allergy Verified 06/25/18 12:50 - Home Medications Home Medications: Ambulatory Orders Furosemide [Lasix] 80 mg PO DAILY 05/11/17 Pregabalin [Lyrica] 100 mg PO DAILY 05/11/17 Simvastatin 40 mg PO DAILY 05/11/17 Docusate Sodium [Colace] 100 mg PO DAILY 10/16/17 Quetiapine Fumarate [Seroquel -] 200 mg PO HS 10/16/17 oxyCODONE HCL [Roxicodone -] 10 mg PO Q4H PRN tablet MDD 6 10/27/17 Aspirin Coated [Ecotrin -] 81 mg PO DAILY #30 tablet.ec 11/10/17 Amitriptyline HCl [Elavil -] 100 mg PO DAILY 02/11/18 Calcium Acetate 2 cap PO TID 02/11/18 Cetirizine HCl 10 mg PO DAILY 02/11/18 Diphenhydramine HCl 25 mg PO DAILY 02/11/18 Enoxaparin Sodium 40 mg SQ DAILY 02/11/18 Escitalopram Oxalate [Lexapro -] 20 mg PO DAILY 02/11/18 Esomeprazole Magnesium 40 mg PO BID 02/11/18 LORazepam [Ativan] 1 mg PO DAILY 02/11/18 Enoxaparin [Lovenox -] 30 mg SQ DAILY #30 disp.syrin 03/22/18 Sevelamer Carbonate [Renvela -] 800 mg PO TIDCM tab 03/22/18 Family Disease History - Family Disease History Family Disease History: Other: Mother (polycystic disease, CVA, brain aneurysm) , Son, Daughter Review of Systems - Review of Systems Constitutional: reports: Malaise. denies: Chills, Fever Eyes: reports: No Symptoms HENT: reports: No Symptoms Neck: reports: No Symptoms Cardiovascular: reports: No Symptoms Gastrointestinal: reports: Abdominal Pain, Nausea, Vomiting Musculoskeletal: reports: No Symptoms Integumentary: reports: No Symptoms Neurological: reports: No Symptoms Endocrine: reports: No Symptoms Hematology/Lymphatic: reports: No Symptoms Psychiatric: reports: No Symptoms Physical Exam Vital Signs: Vital Signs Temperature 99.5 F 06/25/18 12:49 Pulse Rate 102 H 06/25/18 12:49 Respiratory Rate 16 06/25/18 12:49 Blood Pressure 131/61 06/25/18 12:49 O2 Sat by Pulse Oximetry (%) 99 06/25/18 12:49 Constitutional: Yes: Calm Eyes: Yes: Conjunctiva Clear HENT: Yes: Atraumatic Cardiovascular: Yes: S1, S2 Respiratory: Yes: CTA Bilaterally Gastrointestinal: Yes: Hernia, Tenderness Renal/: Yes: WNL Musculoskeletal: Yes: WNL Edema: LLE: Trace, RLE: Trace Integumentary: Yes: Tattoos Neurological: Yes: Oriented Psychiatric: Yes: Oriented Problem List - Problems (1) Abdominal pain Code(s): R10.9 - UNSPECIFIED ABDOMINAL PAIN Qualifiers: (2) ESRD (end stage renal disease) Code(s): N18.6 - END STAGE RENAL DISEASE Assessment/Plan Impression 1. ESRD 2. abdominal pain 3. sleep apnea 4. htn 5. dm 6. asthma 7. obesity 8. anxiety 9. hx of acute psychosis/delusions 10. hx hyperkalemia Plan - called HD nurse to access permacath and send bloodwork - pt going for ct abdomen - surgery evaluation - ER will call me with results - pt will likely need hd as she missed her last dialysis - send cultures - monitor lytes - will follow Dr Romano
[2018-06-25 15:21] LABS: BASO % 0.2 % (0-2.0); EOS % 0.1 % (0-4.5); HEMATOCRIT 33.9 % (32.4-45.2); HEMOGLOBIN 10.7 GM/dL (10.7-15.3); LYMPH % 14.6 % (8-40); MCH 28.2 pg (25.7-33.7); MCHC 31.5 g/dl (32.0-36.0); MEAN CELL VOLUME 89.6 fl (80-96); MEAN PLT VOLUME 9.3 fl (7.5-11.1); NEUT % 78.1 % (42.8-82.8); PLATELET COUNT 114 K/MM3 (134-434); RBC 3.78 M/mm3 (3.60-5.2); RDW 16.4 % (11.6-15.6); WHITE BLOOD COUNT 5.1 K/mm3 (4.0-10.0)
[2018-06-25 15:25] LABS: INR 1.15 (0.83-1.09); PROTHROMBIN TIME (PATIENT) 13.6 SEC (9.7-13.0)
[2018-06-25 15:28] LABS: ACTIVATED PTT 27.7 SECONDS (25.2-36.5)
[2018-06-25 15:36] LABS: ALBUMIN 2.5 g/dl (3.4-5.0); ALK PHOS 87 U/L (45-117); ANION GAP 11 MMOL/L (8-16); BILIRUBIN,TOTAL 0.4 mg/dL (0.2-1); BLOOD UREA NITROGEN 83 mg/dL (7-18); CALCIUM 8.2 mg/dL (8.5-10.1); CHLORIDE 100 mmol/L (98-107); CO2 21 mmol/L (21-32); GLUCOSE,RANDOM 84 mg/dL (74-106); LIPASE 48 U/L (73-393); PHOSPHOROUS 5.6 mg/dL (2.5-4.9); SGOT/AST 8 U/L (15-37); SGPT/ALT 9 U/L (13-61); SODIUM 132 mmol/L (136-145); TOT PROT 7.6 g/dl (6.4-8.2)
--- NOTE | 2018-06-25 15:39 | EKG ---
Test Reason : Blood Pressure : / mmHG Vent. Rate : 103 BPM Atrial Rate : 103 BPM P-R Int : 170 ms QRS Dur : 106 ms QT Int : 362 ms P-R-T Axes : 059 -01 056 degrees QTc Int : 474 ms SINUS TACHYCARDIA POSSIBLE ANTERIOR INFARCT , AGE UNDETERMINED ABNORMAL ECG WHEN COMPARED WITH ECG OF 20-MAR-2018 16:50, NO SIGNIFICANT CHANGE WAS FOUND Confirmed by ALEXI MCDUFFIE MD ([id number]) on 06/25/2018 3:38:48 PM Referred By: Confirmed By:ALEXI MCDUFFIE MD
[2018-06-25 15:56] LABS: CREATININE 12.9 mg/dL (0.55-1.3)
[2018-06-25] MEDS ORDERED: CALCIUM GLUCONATE 10% - 1,000 MG/10 ML VIAL IVPUSH ONE (18:41)
--- NOTE | 2018-06-25 18:41 | PDOC ---
History of Present Illness - General Chief Complaint: Pain, Acute Stated Complaint: Pain Time Seen by Provider: 06/25/18 12:55 History Source: Patient, Old Records Exam Limitations: No Limitations - History of Present Illness Initial Comments: HPI: 53 y/o female presenting to [facility] ER complaining of generalized abdominal pain over the past week, acutely worsening on Monday. Pt states the pain starts in the middle part of her abdomen along her post surgical scar and radiates throughout the abdomen. Pain is made worse even by the clothes touching her skin. Last BM on Monday, but has been passing flatus. Has not made urine since Monday; pt is CDK on HD. Last HD on , skipped Monday appointment. 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 She was initially treated at this facility then transferred to [facility] for further evaluation. Pt reports she received a partial colectomy. Pt additional complaining of sore throat and cough since last week. Endorses SOB and states this is different than her usual Asthma symptoms. Endorses fever (Tmax 102.4 orally) and chills. PCP: Dr. Elvis Lau Medical Hx: - Polycystic Kidney Disease - CKD, on HD (T,R,Sat) - Diabetes - Asthma - GA on CPAP - Hypertension - Osteoarthritis - GERD - Chronic Back Pain - Panic Disorder Surgical Hx: - S/p partial colectomy for pneumatosis intestinal at [facility] Past History - Past Medical History Allergies/Adverse Reactions: Allergies Allergy/AdvReac Type Severity Reaction Status Date / Time No Known Allergies Allergy Verified 06/25/18 12:50 Home Medications: Ambulatory Orders Furosemide [Lasix] 80 mg PO DAILY 05/11/17 Pregabalin [Lyrica] 100 mg PO DAILY 05/11/17 Simvastatin 40 mg PO DAILY 05/11/17 Docusate Sodium [Colace] 100 mg PO DAILY 10/16/17 Quetiapine Fumarate [Seroquel -] 200 mg PO HS 10/16/17 oxyCODONE HCL [Roxicodone -] 10 mg PO Q4H PRN tablet MDD 6 10/27/17 Aspirin Coated [Ecotrin -] 81 mg PO DAILY #30 tablet.ec 11/10/17 Amitriptyline HCl [Elavil -] 100 mg PO DAILY 02/11/18 Calcium Acetate 2 cap PO TID 02/11/18 Cetirizine HCl 10 mg PO DAILY 02/11/18 Diphenhydramine HCl 25 mg PO DAILY 02/11/18 Enoxaparin Sodium 40 mg SQ DAILY 02/11/18 Escitalopram Oxalate [Lexapro -] 20 mg PO DAILY 02/11/18 Esomeprazole Magnesium 40 mg PO BID 02/11/18 LORazepam [Ativan] 1 mg PO DAILY 02/11/18 Enoxaparin [Lovenox -] 30 mg SQ DAILY #30 disp.syrin 03/22/18 Sevelamer Carbonate [Renvela -] 800 mg PO TIDCM tab 03/22/18 Anemia: No Asthma: Yes Cancer: No Cardiac Disorders: No CVA: No COPD: No CHF: No Dementia: No Diabetes: Yes (DM) Dialysis: Yes () GI Disorders: Yes (UMBALICAL HERNIA) Disorders: No HTN: Yes Hypercholesterolemia: No Liver Disease: No Psychiatric Problems: Yes (PTSD) Seizures: No Thyroid Disease: No - Surgical History Abdominal Surgery: Yes (UMB.HERNIA X 5 / mesh placement x2 /) Appendectomy: No Cardiac Surgery: No Cholecystectomy: No GI Surgery: Yes Lung Surgery: No Neurologic Surgery: No - Immunization History Immunization Up to Date: Yes - Suicide/Smoking/Psychosocial Hx Smoking Status: Yes Smoking History: Current every day smoker Have you smoked in the past 12 months: Yes Number of Cigarettes Smoked Daily: 20 Information on smoking cessation initiated: No 'Breaking Loose' booklet given: 03/21/18 Hx Alcohol Use: No Drug/Substance Use Hx: No Substance Use Type: None Hx Substance Use Treatment: No Review of Systems - Review of Systems Able to Perform ROS?: Yes Comments:: In addition to that documented in the HPI above, the additional ROS was obtained : Constitutional: Endorses fevers and chills Eyes: Denies vision changes ENMT: Endorse sore throat and cough CV: Denies chest pain Resp: Endorses SOB GI: Denies vomiting or diarrhea : Denies painful urination but has not urinated in several days MSK: Denies recent trauma Skin: Endorses new rashes on abdomen Neuro: Denies new numbness or tingling or weakness Endocrine: Denies polyuria Heme: Denies bleeding disorders *Physical Exam - Vital Signs Last Vital Signs Temp Pulse Resp BP Pulse Ox 99.5 F 102 H 16 131/61 99 06/25/18 12:49 06/25/18 12:49 06/25/18 12:49 06/25/18 12:49 06/25/18 12:49 - Physical Exam Comments: Constitutional: Obese female in no acute distress but obvious discomfort. Found semi-fowlers in hospital hallway bed. Alert and oriented x4. Answered all questions appropriately and completely. Speech was non-labored, non-pressured. HEENT: Normocephalic. No obvious external signs of trauma. Sclera white. Hearing grossly normal. No nasal discharge. Neck is supple, trachea is midline. Cardiovascular: Regular rate and regular rhythm. No murmur, rubs, clicks, or gallops. Peripheral pulses: Radial pulses full. Respiratory: Breathing unlabored. Equal chest rise and fall. Trace end expiratory wheezing without stridor or focal consolidation. Gastrointestinal: abdomen is diffusely tender with rebound and guarding in all four quadrants. Large old appearing midline surgical scar with possible underlying hernia and overlying erythema. No cellulitic lesions. Neuro: Alert and oriented. Moving all four extremities spontaneously. Skin: Warm and dry. Psych: Affect: tearful. Mood: normal. Moderate Sedation - Procedure Monitoring Vital Signs: Procedure Monitoring Vital Signs Temperature 99.5 F 06/25/18 12:49 Pulse Rate 102 H 06/25/18 12:49 Respiratory Rate 16 06/25/18 12:49 Blood Pressure 131/61 06/25/18 12:49 O2 Sat by Pulse Oximetry (%) 99 06/25/18 12:49 ED Treatment Course - LABORATORY CBC & Chemistry Diagram: 06/25/18 15:00 06/25/18 20:19 - ADDITIONAL ORDERS Additional order review: Laboratory Results 06/25/18 06/25/18 06/25/18 15:00 15:00 15:00 PT with INR 13.60 H INR 1.15 H PTT (Actin FS) 27.7 Sodium 132 L Potassium 6.0 H Chloride 100 Carbon Dioxide 21 Anion Gap 11 BUN 83 H Creatinine 12.9 H* Creat Clearance w eGFR 3.04 Random Glucose 84 Lactic Acid 0.7 Calcium 8.2 L Phosphorus 5.6 H Magnesium 2.0 Total Bilirubin 0.4 AST 8 L ALT 9 L Alkaline Phosphatase 87 Total Protein 7.6 Albumin 2.5 L Lipase 48 L Blood Type Antibody Screen 06/25/18 15:00 PT with INR INR PTT (Actin FS) Sodium Potassium Chloride Carbon Dioxide Anion Gap BUN Creatinine Creat Clearance w eGFR Random Glucose Lactic Acid Calcium Phosphorus Magnesium Total Bilirubin AST ALT Alkaline Phosphatase Total Protein Albumin Lipase Blood Type AB POSITIVE Antibody Screen Negative 06/25/18 15:00 RBC 3.78 MCV 89.6 MCHC 31.5 L RDW 16.4 H MPV 9.3 Neutrophils % 78.1 D Lymphocytes % 14.6 D Monocytes % 7.0 Eosinophils % 0.1 D Basophils % 0.2 - RADIOLOGY Radiology Studies Ordered: Category Date Time Status ABDOMEN & PELVIS CT W/O CONTR [CT] Stat CT Scan 06/25/18 13:37 Taken ABDOMEN FLAT & UPRIGHT [RAD] Stat Radiology 06/25/18 13:39 Ordered CHEST PA & LAT [RAD] Stat Radiology 06/25/18 13:39 Ordered - Medications Given in the ED: ED Medications Discontinued Medications Generic Name Dose Route Start Last Admin Trade Name Claudeq PRN Reason Stop Dose Admin Albuterol/Ipratropium 1 amp 06/25/18 13:40 06/25/18 14:34 Duoneb - NEB 06/25/18 13:41 1 amp ONCE ONE Administration Morphine Sulfate 4 mg 06/25/18 13:48 06/25/18 14:34 Morphine Injection - IVPUSH 06/25/18 13:49 Not Given ONCE ONE Medical Decision Making - Medical Decision Making *Reviewed vital signs, nursing notes, and prior visit documentation (if available). 53 y/o female presenting with two complaints that are possibly unrelated. Abdominal pain is diffuse and concerning for possible partial obstruction versus incarcerated post surgical versus ventral hernia given pain and overlying erythema. Will obtain CT with PO contrast to further evaluate. Given delay of CT, will evaluate initially with plain film to evaluate for free air or obstruction pattern. Cough with sore throat and fever. D/D includes viral URI , Strep pharyngitis, pneumonia, bronchitis. Will obtain CXR. EKG: Sinus tachycardia with a ventricular rate of 103 bpm. Normal axis. Normal intervals. No ST segment elevation or depression. No hyperacute or peaked T waves. Pt is historically difficult to obtain blood work. Dialysis nurse came to the ED and obtained labs from pts Shiley catheter. CT of Abdomen and pelvis revealed U/S guided IV access obtained. Repeat BMP and second T/S screen sent. 20:25 Telephone page through office answering service sent for physician covering for Dr. Lau. 20:[address] Lopez. Verbally appraised of the pts HPI, ED course, and current plan of management. Agrees to admit pt to ICU. Requests surgery consultation with Paul Bach. Page sent to ICU admission pager and to [facility]. 20:40 Telephone consultation with resident Dr. Yeh. Verbally appraised of the pts HPI, ED course, and current plan of management. Informed no ICU beds available. Will speak to his attending and call back. ED Attending consulted with Dr. Clark of surgery. Will come and evaluate the pt after she is finished in the OR. 21:[address] Yeh reports a ICU bed should be made available within the next [address] Candelaria made aware. Will call the dialysis nurse when pt is transferred to the ICU. 06/26/18 00:27 Pt's ICU bed is now being held for a possible in-house pt. Per nursing home social worker, bed status will be unknown for approx. 1 hour. 06/26/18 00:39 Pt has once again been accepted to the ICU. Awaiting nursing report. 06/26/18 00:42 Pt's CXR was not performed secondary to staffing constraints. At this time, no certified medical technician is available in the department and the pt requires emergent dialysis. *DC/Admit/Observation/Transfer Diagnosis at time of Disposition: Hyperkalemia, Hernia of abdominal wall Abdominal pain Qualifiers: Abdominal location: generalized Qualified Code(s): R10.84 - Generalized abdominal pain - Discharge Dispostion Condition at time of disposition: Stable Decision to Admit order: Yes - Referrals - Patient Instructions - Post Discharge Activity
[2018-06-25] MEDS ORDERED: DEXTROSE 50%-WATER - 25 GM/50 ML VIAL IVPUSH ONE (18:42)
[2018-06-25] MEDS ORDERED: INSULIN REGULAR HUMAN 100 UNITS/ML *VIAL SQ ONE (18:43)
[2018-06-25] MEDS ORDERED: SODIUM BICARBONATE 8.4% 50 MEQ/50 ML DISP.SYRIN IVPUSH ONE (18:44)
--- NOTE | 2018-06-25 18:47 | PDOC ---
Attending Attestation - Resident Resident Name: Mando Diaz - ED Attending Attestation I have performed the following: I have examined & evaluated the patient, The case was reviewed & discussed with the resident, I agree w/resident's findings & plan, Exceptions are as noted - Medical Decision Making 06/25/18 18:45 A portion of this note was documented by scribe services under my direction. I have reviewed the details of the note, within reason, and agree with the documentation with the following case summary and management plan written by me. Patient treated in the ED. Nursing notes are reviewed and incorporated into the medical decision-making. Vital signs reviewed. Peripheral IV access obtained by the nurse, laboratory studies are drawn and sent, reviewed and interpreted by myself. Vital Signs Temp Pulse Resp BP Pulse Ox 99.5 F 102 H 16 131/61 99 06/25/18 12:49 06/25/18 12:49 06/25/18 12:49 06/25/18 12:49 06/25/18 12:49 53-year-old female with past medical history of asthma, diabetes, end-stage renal disease on dialysis Monday, , Monday, umbilical hernia status post multiple surgeries, PTSD, hypertension presents with 2 complaint. Patient reports approximately 1 month of sore throat has progressively worsened. The patient states that her throat is irritated but denies any chest pain, short of breath, fevers or chills. Last week, the patient was attempting to walk and noted a "pop" feeling in her abdomen. She felt that her umbilical hernia extended out in her abdomen was distended. Since then, the patient has had decreased appetite, multiple episodes of nausea and small episodes of vomiting. Denies bowel movements in the last several days but passing flatus. Because of the pain, the patient last had dialysis 4 days ago. I suspect with the patient's abdominal pain that we need to rule out bowel obstruction. Differential also includes gastritis, colitis, other acute abdominal pathology. However, the patient's umbilical hernia is significant. I had consulted patient's food supervisor, Dr. Romano. Given that she missed dialysis, the patient be set up for dialysis today. Patient noted to have hyperkalemia 6.0 but no EKG changes. We'll medically treat but avoid Kayexalate. We'll however, obtain labs and CAT scan abdomen pelvis. Patient sore throat may be viral syndrome but it does appear long for one month. Differential some includes gastritis and acid reflux. Strep throat swab is negative. The patient should be admitted to the hospital for further evaluation given inability to tolerate by mouth. <Jose M Willson - Last Filed: 06/25/18 18:45> - HPI HPI: 06/25/18 18:47 The patient is a 53 year old female with a past medical history of pneumatosis s /p partial colectomy, failed to resolve, in [facility] for one month (last year) , polycystic kidney disease on dialysis(T,R,Sat), DM, HTN, h/o DVT, multiple umbilical hernia surgeries, and chronic pain who presents to the emergency department for evaluation of a 1 week history of sore throat and abdominal pain. Patient reports associated productive cough for 1 week which still persists. She reports she missed her dialysis on her last dialysis was on where she had a fever with tmax of 102.4. Patient reports severe abdominal pain with burning for 5 days localized to her umbilicus, after hearing a pop when she was moved up her stairs since her elevator was broken. She states it is reminiscent of her previous umbilical hernia pain. Patient states she has been unable to produce urine or stool since Monday, which she notes usually occurs when she has an infection of some sort. The patient denies chest pain, shortness of breath, headache, dizziness, nausea , vomiting, diarrhea, constipation, and any urinary symptoms. Allergies: NKDA - Physicial Exam PE: GENERAL:(+)Obese HEAD: No signs of trauma EYES: PERRLA, EOMI, sclera anicteric, conjunctiva clear ENT: Auricles normal inspection, hearing grossly normal, nares patent, oropharynx clear without exudates. Moist mucosa NECK: Normal ROM, supple, no lymphadenopathy, JVD, or masses LUNGS: Breath sounds equal, clear to auscultation bilaterally. No wheezes, and no crackles HEART: Regular rate and rhythm, normal S1 and S2, no murmurs, rubs or gallops ABDOMEN: (+)Diffuse abdominal tenderness. (+)Abdomen distended. (+)Large umbilical hernia. EXTREMITIES: Normal range of motion, no edema. No clubbing or cyanosis. No cords, erythema, or tenderness NEUROLOGICAL: Cranial nerves II through XII grossly intact. Normal speech, normal gait SKIN: Warm, Dry, normal turgor, no rashes or lesions noted <Marucs Lyman - Last Filed: 06/25/18 18:48> Heart Score/ECG Review #1 06/25/18 18:46 NSR 103, no std/federico, TWI avF, normal axis, normal intervals, QTC 474 msec <Jose M Willson - Last Filed: 06/25/18 18:45> Attestations - Attestations Documentation prepared by Marcus Lyman, acting as outside medical sales representative for Jose M Willson MD. <Marcus Lyman - Last Filed: 06/25/18 18:48>
[2018-06-25] MEDS ORDERED: DEXTROSE 50%-WATER 25 GM/50 ML DISP.SYRIN ONE (19:59)
[2018-06-25] MEDS ORDERED: SODIUM BICARBONATE 8.4% - 50 ML ONE (19:59)
[2018-06-25] MEDS ORDERED: INSULIN REGULAR HUMAN 100 UNITS/ML *VIAL ONE (20:00)
[2018-06-25] MEDS ORDERED: CALCIUM GLUCONATE 10% - 1,000 MG/10 ML VIAL ONE (20:02)
[2018-06-25 21:01] LABS: ANION GAP 13 MMOL/L (8-16); BLOOD UREA NITROGEN 86 mg/dL (7-18); CALCIUM 8.1 mg/dL (8.5-10.1); CHLORIDE 100 mmol/L (98-107); CO2 20 mmol/L (21-32); GLUCOSE,RANDOM 79 mg/dL (74-106); SODIUM 133 mmol/L (136-145)
[2018-06-25 21:06] LABS: CREATININE 13.2 mg/dL (0.55-1.3); POTASSIUM 6.2 mmol/L (3.5-5.1)
[2018-06-25] MEDS ORDERED: ALBUTEROL SO4 0.042% IH SOL 1.25 MG/3 ML VIAL.NEB NEB ONE (21:51)
--- NOTE | 2018-06-25 23:22 | CONSULT ---
Consult Consult Specialty:: General Surgery Referred by:: Dr. Diaz Reason for Consultation:: incarcerated ventral hernias with partial SBO, multiple comorbidities and previous hernia repairs with mesh - History of Present Illness Chief Complaint: abdominal pain, constipation, decreased urination, fever/chills , hernia back out, sore throat History of Present Illness: 53yo morbidly obese F diabetic smoker with ESRD from [facility] on HD via L chest Shiley, h/o multiply recurrent ventral hernias s/p repairs x4 including 2 laparoscopic with mesh, followed by laparotomy with partial bowel resection ( colon?) for pneumatosis/obstruction 05/26 at [facility] (transferred there from here), who has had chronic cough and sore throat for about a month, presented with central/periumbilical/epigastric abdominal pain and recurrent herniation noticed last week around Monday, with the pain getting bad on , associated with fever after dialysis, pink on the overlying skin noticed Monday by her home visitor, constipation and anuria since (usually makes urine ~4xdaily), fever and chills at home, decreased appetite, no N/V but phlegm with coughing and pain with swallowing, pain with breathing/SOB, and abdominal pain so bad Monday that she skipped HD. In the ER, she has wbc 5, lactate normal <1, Hb 10, K 6 -> 6.2, Cr 12 -> 13, and CT showing recurrent umbilical and supraumbilical hernias with SB content, mildly dilated proximal SB but not markedly decompressed distal bowel. Enteral contrast is not in herniated loops, making full evaluation difficult. She required Shiley access for bloodwork, and has historically very difficult venous access, so has not received much IVF nor any antibiotics. Had one peripheral IV, which is now dislodged. Hemodialysis is planned for tonight, when she gets a bed in ICU. Surgery is asked to evaluate for incarcerated ventral hernias with associated SBO. She is seen and examined in ER holding. She complains that "everyone is just coming in and hurting me more, and no one can make me feel better." She describes the chronology above, and indicates the pain mainly in her central abdomen, where it is pink overlying the recurrent hernia and quite tender. She is easily tearful, and has a raspy, productive cough. She is more comfortable lying flat than sitting up because of her abdomen, which is also obese and distended. 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 NEUROLOGIST: Yes: Peripheral Neuropathy Cardio/Vascular: Yes: HTN, Other (poor venous access) Pulmonary: Yes: Asthma, Sleep Apnea (on CPAP at home - does not use because of insomnia "I don't sleep enough hours") Gastrointestinal: Yes: Constipation (chronic on opioids), Diverticulosis, GERD, Other (morbid obesity) Renal/: Yes: Renal Failure (ESRD on HD for 4 years due to polycystic disease) , Hemodialysis ...: No Psych: Yes: Anxiety, Other (post traumatic stress disorder) Musculoskeletal: Yes: Chronic low back pain (on lyrica and percocet at home) ENT: Yes: Other (cataracts) Endocrine: Yes: Diabetes Mellitus, Hyperparathyroidism - Past Surgical History Past Surgical History: Yes: AV Fistula/Graft (R arm - multiple surgeries), Colectomy (partial? at [facility] 05/26 for pneumatosis coli), , Hernia Repair (x4, 2 with mesh laparoscopically; all prior to midline incision 05/26 at [facility]) Additional Surgical History: multiple lines/access for HD; multiple declotting procedures; currently with L chest permacath - Alcohol/Substance Use Hx Alcohol Use: No History of Substance Use: reports: None - Smoking History Smoking history: Current every day smoker Have you smoked in the past 12 months: Yes Aproximately how many cigarettes per day: 20 - Social History Usual Living Arrangement: With Child ADL: Support Services (has an aid now, 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 2 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) History of Recent Travel: No Home Medications - Allergies Allergies/Adverse Reactions: Allergies Allergy/AdvReac Type Severity Reaction Status Date / Time No Known Allergies Allergy Verified 06/25/18 12:50 - Home Medications Home Medications: Ambulatory Orders Furosemide [Lasix] 80 mg PO DAILY 05/11/17 Pregabalin [Lyrica] 100 mg PO DAILY 05/11/17 Simvastatin 40 mg PO DAILY 05/11/17 Docusate Sodium [Colace] 100 mg PO DAILY 10/16/17 Quetiapine Fumarate [Seroquel -] 200 mg PO HS 10/16/17 oxyCODONE HCL [Roxicodone -] 10 mg PO Q4H PRN tablet MDD 6 10/27/17 Aspirin Coated [Ecotrin -] 81 mg PO DAILY #30 tablet.ec 11/10/17 Amitriptyline HCl [Elavil -] 100 mg PO DAILY 02/11/18 Calcium Acetate 2 cap PO TID 02/11/18 Cetirizine HCl 10 mg PO DAILY 02/11/18 Diphenhydramine HCl 25 mg PO DAILY 02/11/18 Enoxaparin Sodium 40 mg SQ DAILY 02/11/18 Escitalopram Oxalate [Lexapro -] 20 mg PO DAILY 02/11/18 Esomeprazole Magnesium 40 mg PO BID 02/11/18 LORazepam [Ativan] 1 mg PO DAILY 02/11/18 Enoxaparin [Lovenox -] 30 mg SQ DAILY #30 disp.syrin 03/22/18 Sevelamer Carbonate [Renvela -] 800 mg PO TIDCM tab 03/22/18 Family Disease History - Family Disease History Family Disease History: Other: Mother (polycystic disease, CVA, brain aneurysm) , Son, Daughter Review of Systems - Review of Systems Constitutional: reports: Chills, Fever Eyes: reports: Blurred Vision, Floaters, Other (uses glasses instead of contacts ). denies: Double Vision HENT: reports: Difficult Swallowing (secondary to pain), Throat Pain Neck: denies: Pain on Movement, Stiffness Cardiovascular: denies: Chest Pain, Palpitations Respiratory: reports: Cough, SOB Gastrointestinal: reports: Abdominal Pain (periumbilical, got bad on ), Constipation (last BM ). denies: Nausea, Vomiting Genitourinary: reports: Other (usually goes ~4x/day, no real urine output since ). denies: Burning, Dysuria Musculoskeletal: reports: Back Pain, Joint Pain, Muscle Pain Integumentary: reports: Change in Color (pink on abdomen since Monday (per aide) ), Lump (hernia back in midline centrally and superiorly) Neurological: reports: Dizziness, Headache, Unsteady Gait Psychiatric: reports: Altered Sleep Pattern (insomnia) Physical Exam Vital Signs: Vital Signs Temperature 99.5 F 06/25/18 12:49 Pulse Rate 102 H 06/25/18 12:49 Respiratory Rate 16 06/25/18 12:49 Blood Pressure 131/61 06/25/18 12:49 O2 Sat by Pulse Oximetry (%) 99 06/25/18 12:49 Constitutional: Yes: No Distress (but uncomfortable), Anxious, Obese Eyes: Yes: Conjunctiva Clear, EOM Intact HENT: Yes: Atraumatic, Normocephalic Neck: Yes: Supple, Trachea Midline Cardiovascular: Yes: Tachycardia. No: Pulse Irregular Respiratory: Yes: Regular, Cough (rasping at times), Wheezes (end-expiratory bilaterally). No: Accessory Muscle Use Gastrointestinal: Yes: Normal Bowel Sounds, Soft, Abdomen, Obese, Distention, Hernia (epigastric on valsalva, mostly reduces spontaneously, cannot palpate all the way to/through defect), Tenderness (periumbilical/centrally at multiple midline scars mainly, less elsewhere, though also some to sides of upper abdomen ), Tenderness, Epigastrium (over palpable herniation on valsalva, but not as much as below). No: Tenderness, Rebound ...Rectal Exam: Yes: Deferred Renal/: Yes: Anuria (currently), Oliguria (more usual per pt). No: Liao Present Musculoskeletal: No: Joint Stiffness, Joint Swelling Extremities: Yes: Other (multiple scars on arms). No: Cool, Cyanosis Peripheral Pulses WNL: Yes Integumentary: Yes: Erythema (over central abdomen/scars overlying CT finding of recurrent herniation with SB content), Tattoos, Other (scars at right neck; L chest with Shiley in place; multiple abdominal scars including midline, laparoscopic, Pfannenstiel). No: Jaundice, Rash Neurological: Yes: Alert, Oriented Psychiatric: Yes: Alert, Other (tearful, concerned, frustrated) Labs: CBC, BMP 06/25/18 15:00 06/25/18 20:19 CMP Sodium 133 mmol/L (136-145) L 06/25/18 20:19 Potassium 6.2 mmol/L (3.5-5.1) H* 06/25/18 20:19 Chloride 100 mmol/L (98-107) 06/25/18 20:19 Carbon Dioxide 20 mmol/L (21-32) L 06/25/18 20:19 Anion Gap 13 MMOL/L (8-16) 06/25/18 20:19 BUN 86 mg/dL (7-18) H 06/25/18 20:19 Creatinine 13.2 mg/dL (0.55-1.3) H* 06/25/18 20:19 Creat Clearance w eGFR 2.96 (>60) 06/25/18 20:19 POC Glucometer 109.00145 UNITS (80-120) 06/25/18 20:18 Random Glucose 79 mg/dL (74-106) 06/25/18 20:19 Lactic Acid 0.7 mmol/L (0.4-2.0) 06/25/18 15:00 Calcium 8.1 mg/dL (8.5-10.1) L 06/25/18 20:19 Phosphorus 5.6 mg/dL (2.5-4.9) H 06/25/18 15:00 Magnesium 2.0 mg/dL (1.8-2.4) 06/25/18 15:00 Total Bilirubin 0.4 mg/dL (0.2-1) 06/25/18 15:00 AST 8 U/L (15-37) L 06/25/18 15:00 ALT 9 U/L (13-61) L 06/25/18 15:00 Alkaline Phosphatase 87 U/L (45-117) 06/25/18 15:00 Total Protein 7.6 g/dl (6.4-8.2) 06/25/18 15:00 Albumin 2.5 g/dl (3.4-5.0) L 06/25/18 15:00 Lipase 48 U/L (73-393) L 06/25/18 15:00 INR, PTT INR 1.15 (0.83-1.09) H 06/25/18 15:00 Imaging - Results Cat Scan: Report Reviewed, Image Reviewed (images personally reviewed - multiple pieces of mesh underlying central abdominal wall with small bowel protruding through and between into hernia defects in umbilical and epigastric areas, some dilation of sb proximal, not significantly decompressed distally, no free air or fluid, po contrast not in central bowel loops) EKG: Report Reviewed, Image Reviewed (no peaked T waves) Problem List - Problems (1) Recurrent incisional hernia with obstruction Assessment/Plan: small bowel in recurrent ventral hernias in context of two existing mesh repairs and more recent midline laparotomy not overtly septic or significantly ill, but with overlying skin changes of erythema, warmth, tenderness implying inflammatory reaction and possibly ischemic tissue very high risk factors for surgical morbidity include morbid obesity, diabetes, ESRD/HD, 1ppd smoking, vasculopathy, multiple previous (failed) repairs it is highly likely mesh could need to be explanted in process of hernia reduction/repair with very possible necessary bowel resection, whether needed primarily or from enterotomy risk during procedure --- options for abdominal wall reconstruction then carry high risk for hernia recurrence, wound infection , and would most likely require expertise and resources available only at tertiary center recommend pt be transferred to tertiary center ([facility]?) to undertake this (5th+ ) recurrent hernia repair +/- bowel resection ER/primary team planning HD prior to transfer pt also dehydrated by history and labs, and is likely third-spacing at least somewhat - recommend IV fluid resuscitation prior to OR when reliable access can be established IV antibiotics with broad-spectrum coverage NPO, hold baby asa discussed with Drs. Diaz and Angeles of ER, Dr. Velazco of primary team Code(s): K43.0 - INCISIONAL HERNIA WITH OBSTRUCTION, WITHOUT GANGRENE (2) Fever presenting with conditions classified elsewhere Code(s): R50.81 - FEVER PRESENTING WITH CONDITIONS CLASSIFIED ELSEWHERE (3) Hyperkalemia Code(s): E87.5 - HYPERKALEMIA (4) ESRD (end stage renal disease) on dialysis Code(s): N18.6 - END STAGE RENAL DISEASE; Z99.2 - DEPENDENCE ON RENAL DIALYSIS (5) Morbid obesity with BMI of 40.0-44.9, adult Code(s): E66.01 - MORBID (SEVERE) OBESITY DUE TO EXCESS CALORIES; Z68.41 - BODY MASS INDEX (BMI) 40.0-44.9, ADULT (6) Diabetes mellitus with diabetic neuropathy, with long-term current use of insulin Code(s): E11.40 - TYPE 2 DIABETES MELLITUS WITH DIABETIC NEUROPATHY, UNSP; 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
[2018-06-26] MEDS ORDERED: SODIUM CHLORIDE 250 ML IV PRN (00:14)
--- NOTE | 2018-06-26 00:14 | PN ---
Progress Note (short form) - Note Progress Note: Renal Follow Up Laboratory Tests 06/25/18 06/25/18 15:00 20:19 Sodium 132 L 133 L Potassium 6.0 H 6.2 H* BUN 86 H Creatinine 13.2 H* Pt remains in the ER and we are waiting for a monitored bed to start HD. She had not received the medical treatment for her hyperkalemia before the second bloodwork was drawn as she did not have access. Spoke to ER and spoke to medical team. We are on standby to dialyze the patient. Surgical evaluation is underway for ct scan findings. Dr Romano Problem List - Problems (1) Abdominal pain Code(s): R10.9 - UNSPECIFIED ABDOMINAL PAIN Qualifiers: Qualified Code(s): R10.84 - Generalized abdominal pain (2) ESRD (end stage renal disease) Code(s): N18.6 - END STAGE RENAL DISEASE
--- NOTE | 2018-06-26 00:25 | CONSULT ---
Consult Consult Specialty:: Pulm/CCM Referred by:: Dr. Diaz Reason for Consultation:: Hyperkalemia - Urgent dialysis - History of Present Illness History of Present Illness: 53 yo AA F h/o umbilical hernias s/p multiple repairs, ESRD on HD (,Barbie,Mon), DM, HTN, psychosis, and anemia c/o abd pain x 4 days. The pain is located in the central abd, radiates around her surgical scar, 8/10, worse with movement, a /w vomiting and constipation. Patient said she missed her dialysis on Sat. because she felt tired and pain in her belly. She has a permcath. Denies fever, chills, chest pain, shortness of breath. 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: Peripheral Neuropathy Cardio/Vascular: Yes: HTN Pulmonary: Yes: Asthma, Sleep Apnea (on CPAP at home - does not use because of insomnia "I don't sleep enough hours") Gastrointestinal: Yes: Constipation (chronic on opioids), Diverticulosis, GERD, Other (morbid obesity) Renal/: Yes: Renal Failure (ESRD on HD for 4 years due to polycystic disease) , Hemodialysis ...: No Psych: Yes: Anxiety, Other (post traumatic stress disorder) Musculoskeletal: Yes: Chronic low back pain (on lyrica and percocet at home) ENT: Yes: Other (cataracts) Endocrine: Yes: Diabetes Mellitus, Hyperparathyroidism - Past Surgical History Past Surgical History: Yes: AV Fistula/Graft (R arm - multiple surgeries), Colectomy (partial? at [facility] 05/26 for pneumatosis coli), , Hernia Repair (x4, 2 with mesh laparoscopically; all prior to midline incision 05/26 at [facility]) Additional Surgical History: multiple lines/access for HD; multiple declotting procedures; currently with [facility] - Alcohol/Substance Use Hx Alcohol Use: No History of Substance Use: reports: None - Smoking History Smoking history: Current every day smoker Have you smoked in the past 12 months: Yes Aproximately how many cigarettes per day: 20 - Social History Usual Living Arrangement: With Child ADL: Support Services (has an aid now, has 2 kids 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) History of Recent Travel: No Home Medications - Allergies Allergies/Adverse Reactions: Allergies Allergy/AdvReac Type Severity Reaction Status Date / Time No Known Allergies Allergy Verified 06/25/18 12:50 - Home Medications Home Medications: Ambulatory Orders Furosemide [Lasix] 80 mg PO DAILY 05/11/17 Pregabalin [Lyrica] 100 mg PO DAILY 05/11/17 Simvastatin 40 mg PO DAILY 05/11/17 Docusate Sodium [Colace] 100 mg PO DAILY 10/16/17 Quetiapine Fumarate [Seroquel -] 200 mg PO HS 10/16/17 oxyCODONE HCL [Roxicodone -] 10 mg PO Q4H PRN tablet MDD 6 10/27/17 Aspirin Coated [Ecotrin -] 81 mg PO DAILY #30 tablet.ec 11/10/17 Amitriptyline HCl [Elavil -] 100 mg PO DAILY 02/11/18 Calcium Acetate 2 cap PO TID 02/11/18 Cetirizine HCl 10 mg PO DAILY 02/11/18 Diphenhydramine HCl 25 mg PO DAILY 02/11/18 Enoxaparin Sodium 40 mg SQ DAILY 02/11/18 Escitalopram Oxalate [Lexapro -] 20 mg PO DAILY 02/11/18 Esomeprazole Magnesium 40 mg PO BID 02/11/18 LORazepam [Ativan] 1 mg PO DAILY 02/11/18 Enoxaparin [Lovenox -] 30 mg SQ DAILY #30 disp.syrin 03/22/18 Sevelamer Carbonate [Renvela -] 800 mg PO TIDCM tab 03/22/18 Family Disease History - Family Disease History Family Disease History: Other: Mother (polycystic disease, CVA, brain aneurysm) , Son, Daughter Review of Systems - Review of Systems Constitutional: reports: Malaise, Weakness Cardiovascular: reports: No Symptoms Respiratory: reports: Cough Gastrointestinal: reports: Abdominal Pain, Bloating, Constipation, Nausea, Vomiting Neurological: reports: No Symptoms Physical Exam Vital Signs: Vital Signs Temperature 99.5 F 06/25/18 12:49 Pulse Rate 102 H 06/25/18 12:49 Respiratory Rate 16 06/25/18 12:49 Blood Pressure 131/61 06/25/18 12:49 O2 Sat by Pulse Oximetry (%) 99 06/25/18 12:49 Constitutional: Yes: Anxious, Mild Distress Cardiovascular: Yes: Regular Rate and Rhythm Respiratory: Yes: CTA Bilaterally Gastrointestinal: Yes: Normal Bowel Sounds, Abdomen, Obese, Distention, Tenderness, Other (erythematous vertical scar with tenderness upon light palpations) Edema: Yes Neurological: Yes: Alert, Oriented Labs: CBC, BMP 06/25/18 15:00 06/25/18 20:19 Imaging - Results Cat Scan: Report Reviewed Assessment/Plan 53 yo AA F h/o umbilical hernias s/p multiple repairs, ESRD on HD (Tu,Barbie,Sat), DM, HTN, psychosis, and anemia evaluated for higher level of care. A: ESRD on HD Hyperkalemia w/o EKG change Incisional hernia with obstruction GA Anemia morbid obesity P: Urgent dialysis currently awaiting transfer from ED to ICU Evaluated by general surgery, [facility] HD Juan Yeh MD PGY3 Visit type - Emergency Visit Emergency Visit: Yes ED Registration Date: 06/25/18 Care time: The patient presented to the Emergency Department on the above date and was hospitalized for further evaluation of their emergent condition. - New Patient This patient is new to me today: Yes Date on this admission: 06/26/18 - Critical Care Critical Care patient: Yes Total Critical Care Time (in minutes): 35 Critical Care Statement: The care of this patient involved high complexity decision making to prevent further life threatening deterioration of the patient 's condition and/or to evaluate & treat vital organ system(s) failure or risk of failure.
[2018-06-26] MEDS ORDERED: morphine CARPU-JECT 2 MG/1 ML DISP.SYRIN IM ONE (00:34)
[2018-06-26] MEDS ORDERED: morphine SULFATE 4 MG/ML VIAL ONE (00:54)
[2018-06-26] MEDS ORDERED: morphine SULFATE 4 MG/ML VIAL IM PRN (01:52)
--- NOTE | 2018-06-26 01:57 | HP ---
Admitting History and Physical - Primary Care Physician PCP: Elvis Lau - Admission Chief Complaint: abd.pain History of Present Illness: progressively worsening abd. pain since Monday(06.22.18). supraumbilical area has been very tender to touch since, has not gone to her usually scheduled HD due to pain. came to er yesterday afternoon with concern of severe pain. last bowel movment was on monday, passes gases has not urinated since Monday (usually still produces urine daily) History Source: Patient Limitations to Obtaining History: No Limitations - Past Medical History BDC MANAGER: Yes: Peripheral Neuropathy Cardiovascular: Yes: HTN Pulmonary: Yes: Asthma, Sleep Apnea (on CPAP at home - does not use because of insomnia "I don't sleep enough hours") Gastrointestinal: Yes: Constipation (chronic on opioids), Diverticulosis, GERD, Other (morbid obesity) Renal/: Yes: Renal Failure (ESRD on HD for 4 years due to polycystic disease) , Hemodialysis ...: No Infectious Disease: 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) History of Recent Travel: No Home Medications - Allergies Allergies/Adverse Reactions: Allergies Allergy/AdvReac Type Severity Reaction Status Date / Time No Known Allergies Allergy Verified 06/25/18 12:50 - Home Medications Home Medications: Ambulatory Orders Furosemide [Lasix] 80 mg PO DAILY 05/11/17 Pregabalin [Lyrica] 100 mg PO DAILY 05/11/17 Simvastatin 40 mg PO DAILY 05/11/17 Docusate Sodium [Colace] 100 mg PO DAILY 10/16/17 Quetiapine Fumarate [Seroquel -] 200 mg PO HS 10/16/17 oxyCODONE HCL [Roxicodone -] 10 mg PO Q4H PRN tablet MDD 6 10/27/17 Aspirin Coated [Ecotrin -] 81 mg PO DAILY #30 tablet.ec 11/10/17 Amitriptyline HCl [Elavil -] 100 mg PO DAILY 02/11/18 Calcium Acetate 2 cap PO TID 02/11/18 Cetirizine HCl 10 mg PO DAILY 02/11/18 Diphenhydramine HCl 25 mg PO DAILY 02/11/18 Enoxaparin Sodium 40 mg SQ DAILY 02/11/18 Escitalopram Oxalate [Lexapro -] 20 mg PO DAILY 02/11/18 Esomeprazole Magnesium 40 mg PO BID 02/11/18 LORazepam [Ativan] 1 mg PO DAILY 02/11/18 Enoxaparin [Lovenox -] 30 mg SQ DAILY #30 disp.syrin 03/22/18 Sevelamer Carbonate [Renvela -] 800 mg PO TIDCM tab 03/22/18 Family Disease History - Family Disease History Family Disease History: Other: Mother (polycystic disease, CVA, brain aneurysm) , Son, Daughter Review of Systems - Review of Systems Constitutional: reports: Fever, Lethargy, Loss of Appetite, Weakness Eyes: reports: No Symptoms HENT: reports: No Symptoms Neck: reports: No Symptoms Cardiovascular: reports: No Symptoms Respiratory: reports: No Symptoms Gastrointestinal: reports: Abdominal Pain, Bloating, Constipation. denies: Indigestion, Nausea Musculoskeletal: reports: Back Pain (chronic), Joint Pain (chronic) Integumentary: reports: No Symptoms Psychiatric: reports: Anxiety, Depression Physical Examination Vital Signs: Vital Signs Temperature 98.9 F 06/26/18 00:50 Pulse Rate 88 06/26/18 00:50 Respiratory Rate 18 06/26/18 00:50 Blood Pressure 136/77 06/26/18 00:50 O2 Sat by Pulse Oximetry (%) 95 06/26/18 00:50 Constitutional: Yes: Well Nourished, Mild Distress, Obese Eyes: Yes: WNL HENT: Yes: WNL Neck: Yes: WNL Cardiovascular: Yes: WNL, Regular Rate and Rhythm Respiratory: Yes: Regular, CTA Bilaterally Gastrointestinal: Yes: Normal Bowel Sounds, Abdomen, Obese, Hernia, Other ( supraumbilical hernia scar tender, firm, erythematous with non reducible hernia) Musculoskeletal: Yes: WNL Extremities: Yes: WNL Edema: No Peripheral Pulses WNL: Yes Integumentary: Yes: Other (perma cath over left chest wall) Neurological: Yes: WNL Psychiatric: Yes: WNL Labs: CBC, BMP 06/25/18 15:00 06/25/18 20:19 Laboratory Results - last 24 hr 06/25/18 06/25/18 06/25/18 13:47 15:00 15:00 WBC 5.1 RBC 3.78 Hgb 10.7 Hct 33.9 MCV 89.6 MCH 28.2 MCHC 31.5 L RDW 16.4 H Plt Count 114 L MPV 9.3 Absolute Neuts (auto) 4.0 Neutrophils % 78.1 D Lymphocytes % 14.6 D Monocytes % 7.0 Eosinophils % 0.1 D Basophils % 0.2 Nucleated RBC % 0 PT with INR INR PTT (Actin FS) Sodium Potassium Chloride Carbon Dioxide Anion Gap BUN Creatinine Creat Clearance w eGFR POC Glucometer Random Glucose Lactic Acid Calcium Phosphorus Magnesium Total Bilirubin AST ALT Alkaline Phosphatase Total Protein Albumin Lipase Group A Strep Rapid Negative Blood Type AB POSITIVE Antibody Screen Negative 06/25/18 06/25/18 06/25/18 15:00 15:00 15:00 WBC RBC Hgb Hct MCV MCH MCHC RDW Plt Count MPV Absolute Neuts (auto) Neutrophils % Lymphocytes % Monocytes % Eosinophils % Basophils % Nucleated RBC % PT with INR 13.60 H INR 1.15 H PTT (Actin FS) 27.7 Sodium 132 L Potassium 6.0 H Chloride 100 Carbon Dioxide 21 Anion Gap 11 BUN 83 H Creatinine 12.9 H* Creat Clearance w eGFR 3.04 POC Glucometer Random Glucose 84 Lactic Acid 0.7 Calcium 8.2 L Phosphorus 5.6 H Magnesium 2.0 Total Bilirubin 0.4 AST 8 L ALT 9 L Alkaline Phosphatase 87 Total Protein 7.6 Albumin 2.5 L Lipase 48 L Group A Strep Rapid Blood Type Antibody Screen 12/17/18 12/17/18 12/17/18 20:18 20:19 20:19 WBC RBC Hgb Hct MCV MCH MCHC RDW Plt Count MPV Absolute Neuts (auto) Neutrophils % Lymphocytes % Monocytes % Eosinophils % Basophils % Nucleated RBC % PT with INR INR PTT (Actin FS) Sodium 133 L Potassium 6.2 H* Chloride 100 Carbon Dioxide 20 L Anion Gap 13 BUN 86 H Creatinine 13.2 H* Creat Clearance w eGFR 2.96 POC Glucometer [phone] Random Glucose 79 Lactic Acid Calcium 8.1 L Phosphorus Magnesium Total Bilirubin AST ALT Alkaline Phosphatase Total Protein Albumin Lipase Group A Strep Rapid Blood Type AB POSITIVE Antibody Screen Negative Imaging - Results Cat Scan: Report Reviewed (ant.ventral hernia repair with mesh, umbilical and supraumbilical hernia with herniating bowel loops into and over the existing mesh polycystic kidney ds.) Problem List - Problems (1) Abdominal pain Code(s): R10.9 - UNSPECIFIED ABDOMINAL PAIN Qualifiers: Abdominal location: periumbilical Qualified Code(s): R10.33 - Periumbilical pain (2) Diabetes mellitus with diabetic neuropathy, with long-term current use of insulin Code(s): E11.40 - TYPE 2 DIABETES MELLITUS WITH DIABETIC NEUROPATHY, UNSP; Z79.4 - PROJECT DEVELOPMENT COORDINATOR (CURRENT) USE OF INSULIN Qualifiers: Diabetes mellitus type: type 2 Qualified Code(s): E11.40 - Type 2 diabetes mellitus with diabetic neuropathy, unspecified; Z79.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 of 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 (3) Hernia of abdominal wall Code(s): K43.9 - VENTRAL HERNIA WITHOUT OBSTRUCTION OR GANGRENE (4) Hyperkalemia Code(s): E87.5 - HYPERKALEMIA (5) Morbid obesity with BMI of 40.0-44.9, adult Code(s): E66.01 - MORBID (SEVERE) OBESITY DUE TO EXCESS CALORIES; Z68.41 - BODY MASS INDEX (BMI) 40.0-44.9, ADULT (6) ESRD (end stage renal disease) on dialysis Code(s): N18.6 - END STAGE RENAL DISEASE; Z99.2 - DEPENDENCE ON RENAL DIALYSIS (7) GA on CPAP Code(s): G47.33 - OBSTRUCTIVE SLEEP APNEA (ADULT) (PEDIATRIC) (8) PTSD (post-traumatic stress disorder) Code(s): F43.10 - POST-TRAUMATIC STRESS DISORDER, UNSPECIFIED Assessment/Plan admitted to ICU for emergent HD to decrease potassium levels iv abx broad spectrum surgical consult greatly appreciated placed call to [facility] for request of transfer to tertiary care facility for further surgical management in high risk patient for surgical complication that can not be adequately managed in our facility pain control DVT prophylaxis
[2018-06-26] MEDS ORDERED: INSULIN SLIDING SCALE (NOVOLOG) 1 VIAL SQ PRN (02:08)
[2018-06-26 02:23] VITALS: BMI 38.5
[2018-06-26] MEDS ORDERED: DEXTROSE 5%-WATER - 50 ML IVPB ONE (03:06)
[2018-06-26] MEDS ORDERED: PIPERACILLIN/TAZOBACTAM 2.25 GM VIAL IVPB ONE (03:06)
[2018-06-26] MEDS: PIPERACILLIN/TAZOB 2.25 GM 2.25 GM in DEXTROSE 5%-WATER - 50 ML IVPB SCH ×2 (03:11→04:52)
[2018-06-26 05:13] LABS: ANION GAP 8 MMOL/L (8-16); BLOOD UREA NITROGEN 44 mg/dL (7-18); CALCIUM 7.7 mg/dL (8.5-10.1); CHLORIDE 100 mmol/L (98-107); CO2 28 mmol/L (21-32); CREATININE 7.2 mg/dL (0.55-1.3); GLUCOSE,RANDOM 100 mg/dL (74-106); POTASSIUM 3.9 mmol/L (3.5-5.1); SODIUM 137 mmol/L (136-145)
[2018-06-26 05:53] VITALS: BP 133/64; PULSE 102; TEMP 98.8
--- NOTE | 2018-06-26 08:35 | DS ---
Physical Examination Vital Signs: Vital Signs Temperature 98.8 F 06/26/18 05:30 Pulse Rate 102 H 06/26/18 05:30 Respiratory Rate 18 06/26/18 05:30 Blood Pressure 133/64 06/26/18 05:30 O2 Sat by Pulse Oximetry (%) 100 06/26/18 01:52 Labs: CBC, BMP 06/25/18 15:00 06/26/18 04:30 Discharge Summary Reason For Visit: ABDOMNINAL/ESRD/HYPERKALEMIA Hospital Course: came to ER with incarcerated hernia over abd.mesh also hyperkalemic due to skipped HD days was transferred to ICU for emergent hemodialysis in setting of hyperkalemia d/w at [facility]-pt high surgical risk for complications made arrangements for patient to be transferred to [facility] under the care of spent over 90 minutes with patient care in ICU setting Condition: Stable - Instructions Referrals: Elvis Lau MD [Primary Care Provider] - Disposition: TRANSFER ACUTE CARE/OTHER HOSP - Home Medications Comprehensive Discharge Medication List: Ambulatory Orders Furosemide [Lasix] 80 mg PO DAILY 05/11/17 Pregabalin [Lyrica] 100 mg PO DAILY 05/11/17 Simvastatin 40 mg PO DAILY 05/11/17 Docusate Sodium [Colace] 100 mg PO DAILY 10/16/17 Quetiapine Fumarate [Seroquel -] 200 mg PO HS 10/16/17 oxyCODONE HCL [Roxicodone -] 10 mg PO Q4H PRN tablet MDD 6 10/27/17 Aspirin Coated [Ecotrin -] 81 mg PO DAILY #30 tablet.ec 11/10/17 Amitriptyline HCl [Elavil -] 100 mg PO DAILY 02/11/18 Calcium Acetate 2 cap PO TID 02/11/18 Cetirizine HCl 10 mg PO DAILY 02/11/18 Diphenhydramine HCl 25 mg PO DAILY 02/11/18 Enoxaparin Sodium 40 mg SQ DAILY 02/11/18 Escitalopram Oxalate [Lexapro -] 20 mg PO DAILY 02/11/18 Esomeprazole Magnesium 40 mg PO BID 02/11/18 LORazepam [Ativan] 1 mg PO DAILY 02/11/18 Enoxaparin [Lovenox -] 30 mg SQ DAILY #30 disp.syrin 03/22/18 Sevelamer Carbonate [Renvela -] 800 mg PO TIDCM tab 03/22/18
--- NOTE | 2018-06-26 12:27 | PN ---
Progress Note (short form) - Note Progress Note: Renal Pt dialyzed early this morning. HD was terminated about 15 minutes early as lines were clotting. Post HD labs were sent and potassium is improved. She was dialyzed at bedside in the ICU. Laboratory Tests 06/25/18 06/26/18 20:19 04:30 Sodium 133 L Potassium 6.2 H* 3.9 BUN 44 H Creatinine 7.2 H cardio s1s2 pulm clear gi abdominal pain ext neg edema neuro awake Impression 1. ESRD 2. abdominal pain 3. sleep apnea 4. htn 5. dm 6. asthma 7. obesity 8. anxiety 9. hx of acute psychosis/delusions 10. hyperkalemia Plan - potassium is improved - pt is being transferred to tertiary care center for surgery - pt tolerated HD today - post hd potassium is 3.9 - discussed with ICU team at length through the night Dr Romano Problem List - Problems (1) Abdominal pain Code(s): R10.9 - UNSPECIFIED ABDOMINAL PAIN Qualifiers: Abdominal location: periumbilical Qualified Code(s): R10.33 - Periumbilical pain (2) ESRD (end stage renal disease) Code(s): N18.6 - END STAGE RENAL DISEASE
[2018-06-26] MEDS ORDERED: PIPERACILLIN/TAZOB 2.25 GM 2.25 GM in DEXTROSE 5%-WATER - 50 ML IVPB SCH (18:00)
[2018-06-27 22:08] LABS: HBSAG SCREEN Negative (Negative); HEP A AB, IGM Negative (Negative); HEP B CORE AB, TOT Negative (Negative)
== END 2018-06-26 06:05 | disposition short-term general hospital (02) | DRG 393 ==
LOC: JER 12:36 → JERBED 22:09 → JICU 06-26 01:42
PROVIDERS: ADMIT Internal Medicine; ATTEND Internal Medicine
PROC: 5A1D70Z Performance of Urinary Filtration, Intermittent, Less than 6 Hours Per Day (ICD-10-PCS; principal; 2018-06-26)
DX: K43.0 Incisional hernia with obstruction, without gangrene (principal); N18.6 End stage renal disease; I12.0 Hypertensive chronic kidney disease with stage 5 chronic kidney disease or end stage renal disease; Z68.41 Body mass index [BMI] 40.0-44.9, adult; R50.9 Fever, unspecified; E87.5 Hyperkalemia; E11.40 Type 2 diabetes mellitus with diabetic neuropathy, unspecified; E11.22 Type 2 diabetes mellitus with diabetic chronic kidney disease; G47.30 Sleep apnea, unspecified; K21.9 Gastro-esophageal reflux disease without esophagitis; K57.90 Diverticulosis of intestine, part unspecified, without perforation or abscess without bleeding; E66.01 Morbid (severe) obesity due to excess calories; F43.10 Post-traumatic stress disorder, unspecified; E21.3 Hyperparathyroidism, unspecified; M54.5 Low back pain; K59.03 Drug induced constipation; T40.2X5A Adverse effect of other opioids, initial encounter; F17.210 Nicotine dependence, cigarettes, uncomplicated; G47.33 Obstructive sleep apnea (adult) (pediatric); Z99.2 Dependence on renal dialysis; Z79.4 Long term (current) use of insulin; Z86.718 Personal history of other venous thrombosis and embolism
CPT/HCPCS: 36415; 74176-TC; 80048; 80053; 82962; 83605; 83690; 83735; 84100; 85025; 85610; 85730; 86704; 86706; 86708; 86803; 86850; 86900; 86901; 87040; 87070; 87186; 87340; 87880; 93005; 93010; 99282-25

== ENCOUNTER 2018-07-21 18:08 | Inpatient (IN) | payer OTHER ==
[2018-07-21] MEDS ORDERED: PIPERACILLIN/TAZOB 2.25 GM 2.25 GM in DEXTROSE 5%-WATER - 50 ML IVPB ONE (19:02)
[2018-07-21] MEDS ORDERED: VANCOMYCIN 1 GM in D5W (PRE-DOCKED) 1,000 MG/250 ML IVPB ONE (19:02)
--- NOTE | 2018-07-21 19:06 | PDOC ---
Attending Attestation - HPI HPI: 07/21/18 20:37 The patient is a 53 year old female with past medical history of diabetes, ESRD (on dialysis MWF), multiple AV fistula failures, s/p ex-lap done at [facility] ( late Jun 2018, discharged this Monday07/17/18) complaining of generalized weakness since her discharge. She reports being lethargic, decreased appetite and her family members report her being altered at home. Patient hasnt had dialysis since Monday due to her lethargy. Patient is febrile in the ED to 100.7. Denies any nausea, vomiting, diarrhea, cough, SOB, chest pain or urinary complaints. Also adds she was seen at [facility] yesterday for similar complaints but left AMA. - Physicial Exam PE: 07/21/18 20:37 GENERAL: Sleepy yet arousable, fully oriented, diffusely weak with intermittent twitches LUNGS: Distant lung sounds. HEART: Regular rate and rhythm ABDOMEN: Soft, protuberant nontender, normoactive bowel sounds. No guarding, no rebound. No masses. Healing midline abdominal scar without signs of infection EXTREMITIES: Normal range of motion, no edema. No clubbing or cyanosis. No cords, erythema, or tenderness NEUROLOGICAL: Cranial nerves II through XII grossly intact. Normal speech SKIN: Warm, Dry, normal turgor, no rashes or lesions noted. - Medical Decision Making 07/21/18 20:40 Documentation prepared by Patricia Guan, acting as medical pathologist for Myrtle He MD. <Patricia Guan - Last Filed: 07/21/18 20:37> - Resident Resident Name: Rafal Rae - ED Attending Attestation I have performed the following: I have examined & evaluated the patient, The case was reviewed & discussed with the resident, I agree w/resident's findings & plan, Exceptions are as noted - Medical Decision Making 07/21/18 20:00 EKG - NSR rate of 88 bpm, axis nml, intervals nml (though non specific intraventricular conduction delay noted), no st elevations or depressions, t waves upright 07/21/18 21:13 Laboratory Tests 06/25/18 06/26/18 07/21/18 15:00 04:30 19:45 WBC 5.1 6.7 Hgb 10.7 7.7 L Hct 33.9 23.2 L D Plt Count 114 L 184 D INR VBG pH POC VBG pCO2 Sodium 137 Potassium 3.9 Chloride 100 Carbon Dioxide 28 BUN 44 H Creatinine 7.2 H Random Glucose 100 Troponin I 07/21/18 07/21/18 07/21/18 19:45 19:45 19:45 WBC Hgb Hct Plt Count INR 1.16 H VBG pH 7.29 L POC VBG pCO2 49.5 Sodium 132 L Potassium Chloride 97 L Carbon Dioxide 23 BUN 50 H Creatinine 12.0 H* Random Glucose 91 Troponin I 07/21/18 19:45 WBC Hgb Hct Plt Count INR VBG pH POC VBG pCO2 Sodium Potassium Chloride Carbon Dioxide BUN Creatinine Random Glucose Troponin I 0.03 NO URINE at this time CXR - No consolidation, no effusion, Hgb lower than prior Consider transfusion with dialysis 07/21/18 21:16 Pt being sent for CT of the abdomen and pelvis as well as CT head Will plan to transfer Pt refusing to go to [facility] 07/21/18 21:17 CT demonstrates no intra abdominal pathology CT head no acute pathology Pt mental status improved Will plan to admit to hospitalist service Clinical impression: fever, initial presentation Weakness, initial presentation <Myrtle He - Last Filed: 07/25/18 08:20>
[2018-07-21] MEDS ORDERED: ACETAMINOPHEN 500 MG TABLET (FP) PO ONE (19:47)
[2018-07-21] MEDS ORDERED: ACETAMINOPHEN 1000 MG/100 ML VIAL (NON FORMULARY) IVPB ONE (19:53)
[2018-07-21] MEDS ORDERED: VANCOMYCIN 1 GRAM (PRE-DOCKED) 1,000 MG/250 ML BAG IVPB ONE (19:54)
[2018-07-21] MEDS ORDERED: PIPERACILLIN/TAZOB 2.25 GM 2.25 GM/50 ML BAG IVPB ONE (19:54)
[2018-07-21] MEDS ORDERED: ACETAMINOPHEN INJECTION 100 ML IVPB ONE (19:54)
[2018-07-21 20:04] LABS: BASO % 0.3 % (0-2.0); EOS % 0.6 % (0-4.5); HEMATOCRIT 23.2 % (32.4-45.2); HEMOGLOBIN 7.7 GM/dL (10.7-15.3); LYMPH % 12.3 % (8-40); MCH 30.1 pg (25.7-33.7); MCHC 33.2 g/dl (32.0-36.0); MEAN CELL VOLUME 90.5 fl (80-96); MEAN PLT VOLUME 9.4 fl (7.5-11.1); MONO % 5.2 % (3.8-10.2); NEUT % 81.6 % (42.8-82.8); PLATELET COUNT 184 K/MM3 (134-434); RBC 2.56 M/mm3 (3.60-5.2); RDW 17.6 % (11.6-15.6); WHITE BLOOD COUNT 6.7 K/mm3 (4.0-10.0)
--- NOTE | 2018-07-21 20:06 | PDOC ---
History of Present Illness - General Chief Complaint: SIRS, Suspected/Possible Stated Complaint: AMS Time Seen by Provider: 07/21/18 18:53 History Source: Patient Exam Limitations: No Limitations - History of Present Illness Initial Comments: 07/21/18 20:01 Patient is a 53F with extensive medical history, including DM, ESRD (on unknown dialysis plan), recent ex-lap at [facility] (), multiple AV fistula failures here today complaining of altered mental status. Paramedics report that she was found down and altered with pinpoint pupils. 2mg of narcan was given with rapid improvement. Patient reports taking her normal amount of percocet, but was seen at [facility] and left against medical advice yesterday for a similar presentation. She was discharged Monday from [facility]. Denies fevers , chills, nausea, vomiting. Endorses pain "everywhere" but worse in abdomen. Patient is poor and inconsistent historian. Makes urine still despite being on dialysis. Reports skin breakdown in right bicep [facility] Surgical scar is set to heal by secondary intention. Past History - Past Medical History Allergies/Adverse Reactions: Allergies Allergy/AdvReac Type Severity Reaction Status Date / Time No Known Allergies Allergy Verified 06/25/18 12:50 Home Medications: Ambulatory Orders Furosemide [Lasix] 80 mg PO DAILY 05/11/17 Pregabalin [Lyrica] 100 mg PO DAILY 05/11/17 Simvastatin 40 mg PO DAILY 05/11/17 Docusate Sodium [Colace] 100 mg PO DAILY 10/16/17 Quetiapine Fumarate [Seroquel -] 200 mg PO HS 10/16/17 oxyCODONE HCL [Roxicodone -] 10 mg PO Q4H PRN tablet MDD 6 10/27/17 Aspirin Coated [Ecotrin -] 81 mg PO DAILY #30 tablet.ec 11/10/17 Amitriptyline HCl [Elavil -] 100 mg PO DAILY 02/11/18 Calcium Acetate 2 cap PO TID 02/11/18 Cetirizine HCl 10 mg PO DAILY 02/11/18 Diphenhydramine HCl 25 mg PO DAILY 02/11/18 Enoxaparin Sodium 40 mg SQ DAILY 02/11/18 Escitalopram Oxalate [Lexapro -] 20 mg PO DAILY 02/11/18 Esomeprazole Magnesium 40 mg PO BID 02/11/18 LORazepam [Ativan] 1 mg PO DAILY 02/11/18 Enoxaparin [Lovenox -] 30 mg SQ DAILY #30 disp.syrin 03/22/18 Sevelamer Carbonate [Renvela -] 800 mg PO TIDCM tab 03/22/18 Anemia: No Asthma: Yes Cancer: No Cardiac Disorders: No CVA: No COPD: No CHF: No Dementia: No Diabetes: Yes (DM) Dialysis: Yes (TUES,THUR,SAT) GI Disorders: Yes (UMBALICAL HERNIA) Disorders: No HTN: Yes Hypercholesterolemia: No Liver Disease: No Psychiatric Problems: Yes (PTSD) Seizures: No Thyroid Disease: No - Surgical History Abdominal Surgery: Yes (UMB.HERNIA X 5 / mesh placement x2 /) Appendectomy: No Cardiac Surgery: No Cholecystectomy: No GI Surgery: Yes Lung Surgery: No Neurologic Surgery: No - Immunization History Immunization Up to Date: Yes - Suicide/Smoking/Psychosocial Hx Smoking Status: Yes Smoking History: Never smoked Have you smoked in the past 12 months: Yes Number of Cigarettes Smoked Daily: 20 'Breaking Loose' booklet given: 06/26/18 Hx Alcohol Use: No Drug/Substance Use Hx: No Substance Use Type: None Hx Substance Use Treatment: No Review of Systems - Review of Systems Comments:: 07/21/18 20:03 GENERAL/CONSTITUTIONAL: No fever or chills. +weakness. HEAD, EYES, EARS, NOSE AND THROAT: No change in vision. No sore throat. CARDIOVASCULAR: No chest pain or shortness of breath RESPIRATORY: No cough, wheezing, or hemoptysis. GASTROINTESTINAL: No nausea, vomiting, diarrhea or constipation. GENITOURINARY: No dysuria, frequency, or change in urination. MUSCULOSKELETAL: +bodyaches. No neck or back pain. SKIN: No rash NEUROLOGIC: No headache, vertigo, loss of consciousness, or change in strength/ sensation. ENDOCRINE: No increased thirst. No abnormal weight change ALLERGIC/IMMUNOLOGIC: No hives or skin allergy. *Physical Exam - Vital Signs Last Vital Signs Temp Pulse Resp BP Pulse Ox 100.7 F H 96 H 16 123/62 96 07/21/18 18:45 07/21/18 18:55 07/21/18 18:45 07/21/18 18:45 07/21/18 18:55 - Physical Exam Comments: 07/21/18 20:04 GENERAL: Awake, alert, and fully oriented, in no acute distress HEAD: No signs of trauma, normocephalic, atraumatic EYES: PERRLA, EOMI, sclera anicteric, conjunctiva clear ENT: Auricles normal inspection, hearing grossly normal, nares patent, oropharynx clear without exudates. Moist mucosa NECK: Normal ROM, supple, no lymphadenopathy, JVD, or masses, shiley in place LUNGS: No distress, speaks full sentences, clear to auscultation bilaterally HEART: Regular rate and rhythm, normal S1 and S2, no murmurs, rubs or gallops, peripheral pulses normal and equal bilaterally. ABDOMEN: Diffusely tender, large surgical scar held with sutures, serosanguinous drainage. EXTREMITIES: 4x3cm defect in medial R arm with exposure of subcutaneous tissue, Normal range of motion, +edema. No clubbing or cyanosis. NEUROLOGICAL: Cranial nerves II through XII grossly intact. Normal speech, no focal sensorimotor deficits SKIN: Warm, Dry, normal turgor, no rashes or lesions noted. Moderate Sedation - Procedure Monitoring Vital Signs: Procedure Monitoring Vital Signs Temperature 100.7 F H 07/21/18 18:45 Pulse Rate 96 H 07/21/18 18:55 Respiratory Rate 16 07/21/18 18:45 Blood Pressure 123/62 07/21/18 18:45 O2 Sat by Pulse Oximetry (%) 96 07/21/18 18:55 ED Treatment Course - LABORATORY CBC & Chemistry Diagram: 07/21/18 19:45 07/21/18 19:45 - RADIOLOGY Radiology Studies Ordered: Category Date Time Status ABDOMEN & PELVIS CT W/O CONTR [CT] Stat CT Scan 07/21/18 19:[address] WITHOUT CONTRAST [CT] Stat CT Scan 07/21/18 19:48 Ordered CHEST X-RAY PORTABLE* [RAD] Stat Radiology 07/21/18 19:02 Ordered Medical Decision Making - Medical Decision Making 07/21/18 20:06 Patient is 53F with extensive medical history here today with fever, ams. No meningeal signs, suspect overdose of home pain medication for ams. Fever has broad ddx, including surgical complication, uti, pneumonia, influenza, open wound, bacteremia 2/2 shiley. Septic workup initiated. Treated empirically with vanc, zosyn (+MRSA history). Tylenol for fever. [facility] 07/21/18 21:34 EKG shows NSR with RBBB pattern. Normal axis. Normal intervals. No st elevations /depressions. No peaked t waves. 07/21/18 23:31 CT head normal. K 5.3, hemolyzed slightly. Labs otherwise reassuring, show evidence of dialysis patient. CT a/p pending. [facility] She states that she does not feel safe or well taken care [facility]. Daughter, proxy, agrees. Can be reacehd at [phone] 07/22/18 00:01 CT a/p shows no acute process. No surgical emergency. Pain in belly has improved. Mental status is normal after narcan. Will admit for fever of unknown origin. DDx includes: viral, line infection, wound infection (belly and arm) 07/22/18 01:[address] Cali, pending admission call. *DC/Admit/Observation/Transfer Diagnosis at time of Disposition: Fever - Discharge Dispostion Condition at time of disposition: Stable Decision to Admit order: Yes - Referrals Referrals: Elvis Lau MD [Primary Care Provider] - - Patient Instructions - Post Discharge Activity
[2018-07-21 20:13] LABS: VENOUS PC02 49.5 mmHg (38-52); VENOUS PH 7.29 (7.32-7.42); VENOUS PO2 74.8 mmHg (28-48)
[2018-07-21 20:15] LABS: INR 1.16 (0.83-1.09); PROTHROMBIN TIME (PATIENT) 13.7 SEC (9.7-13.0)
[2018-07-21 20:18] LABS: ACTIVATED PTT 31.6 SECONDS (25.2-36.5)
[2018-07-21 20:32] LABS: ALBUMIN 2.2 g/dl (3.4-5.0); ALK PHOS 73 U/L (45-117); ANION GAP 12 MMOL/L (8-16); BILIRUBIN,TOTAL 0.3 mg/dL (0.2-1); BLOOD UREA NITROGEN 50 mg/dL (7-18); CALCIUM 8.5 mg/dL (8.5-10.1); CHLORIDE 97 mmol/L (98-107); CO2 23 mmol/L (21-32); GLUCOSE,RANDOM 91 mg/dL (74-106); POTASSIUM 5.3 mmol/L (3.5-5.1); SGOT/AST 55 U/L (15-37); SGPT/ALT 23 U/L (13-61); SODIUM 132 mmol/L (136-145); TOT PROT 8.3 g/dl (6.4-8.2)
--- NOTE | 2018-07-22 02:50 | PDOC ---
*Physical Exam - Vital Signs Last Vital Signs Temp Pulse Resp BP Pulse Ox 100.7 F H 91 H 18 124/70 96 07/21/18 18:45 07/21/18 20:45 07/21/18 20:45 07/21/18 20:45 07/21/18 20:45 ED Treatment Course - LABORATORY CBC & Chemistry Diagram: 07/21/18 19:45 07/21/18 19:45 - ADDITIONAL ORDERS Additional order review: Laboratory Results 07/21/18 07/21/18 07/21/18 19:45 19:45 19:45 PT with INR INR PTT (Actin FS) VBG pH POC VBG pCO2 POC VBG pO2 Mixed VBG HCO3 Sodium 132 L Potassium 5.3 H Chloride 97 L Carbon Dioxide 23 Anion Gap 12 BUN 50 H Creatinine 12.0 H* Creat Clearance w eGFR 3.31 Random Glucose 91 Lactic Acid 0.6 Calcium 8.5 Total Bilirubin 0.3 AST 55 H ALT 23 Alkaline Phosphatase 73 Troponin I 0.03 Total Protein 8.3 H Albumin 2.2 L 07/21/18 07/21/18 19:45 19:45 PT with INR 13.70 H INR 1.16 H PTT (Actin FS) 31.6 VBG pH 7.29 L POC VBG pCO2 49.5 POC VBG pO2 74.8 H D Mixed VBG HCO3 23.3 Sodium Potassium Chloride Carbon Dioxide Anion Gap BUN Creatinine Creat Clearance w eGFR Random Glucose Lactic Acid Calcium Total Bilirubin AST ALT Alkaline Phosphatase Troponin I Total Protein Albumin 07/21/18 19:45 RBC 2.56 L MCV 90.5 MCHC 33.2 RDW 17.6 H MPV 9.4 Neutrophils % 81.6 Lymphocytes % 12.3 Monocytes % 5.2 Eosinophils % 0.6 D Basophils % 0.3 - Medications Given in the ED: ED Medications Discontinued Medications Generic Name Dose Route Start Last Admin Trade Name Freq PRN Reason Stop Dose Admin Acetaminophen 975 mg 07/21/18 19:47 07/21/18 20:01 Tylenol - PO 07/21/18 19:48 Not Given ONCE ONE Acetaminophen 1,000 mg 07/21/18 19:53 07/21/18 20:01 Ofirmev Injection - IVPB 07/21/18 19:54 1,000 mg ONCE ONE Administration Piperacillin Sod/Tazobactam 50 mls @ 100 mls/hr 07/21/18 19:02 07/21/18 20:00 Sod 2.25 gm/ Dextrose IVPB 07/21/18 19:31 100 mls/hr ONCE ONE Administration Protocol Vancomycin HCl 1,000 mg 07/21/18 19:02 07/21/18 20:30 Vancomycin (Pre-Docked) IVPB 07/21/18 19:03 1,000 mg ONCE ONE Administration Protocol Medical Decision Making - Medical Decision Making Patient signed out by Dr. Rae 53yo F with multiple co-morbidities presenting with AMS and Fever of unknown origin Discussed case with Dr. Moreno who accepted patient for admission. 07/22/18 02:49 *DC/Admit/Observation/Transfer Diagnosis at time of Disposition: Fever - Discharge Dispostion Condition at time of disposition: Stable - Referrals - Patient Instructions - Post Discharge Activity
[2018-07-22] MEDS ORDERED: oxyCODONE HCL 5 MG TABLET PO PRN (07:54)
--- NOTE | 2018-07-22 08:00 | PROC ---
Procedure Note Procedure: pateint seen examined and ordered put in and h/p dictated total time spent is one hour
--- NOTE | 2018-07-22 08:40 | EKG ---
Test Reason : Blood Pressure : / mmHG Vent. Rate : 088 BPM Atrial Rate : 088 BPM P-R Int : 184 ms QRS Dur : 120 ms QT Int : 400 ms P-R-T Axes : 058 006 048 degrees QTc Int : 484 ms NORMAL SINUS RHYTHM POSSIBLE LEFT ATRIAL ENLARGEMENT NON-SPECIFIC INTRA-VENTRICULAR CONDUCTION DELAY BORDERLINE ECG WHEN COMPARED WITH ECG OF 25-JUN-2018 14:45, BORDERLINE CRITERIA FOR ANTERIOR INFARCT ARE NO LONGER PRESENT T WAVE INVERSION NOW EVIDENT IN ANTERIOR LEADS Confirmed by ЕКАТЕРИНА VALE, YAW ([id number]) on 07/22/2018 8:40:38 AM Referred By: Confirmed By:YAW WILLAMS MD
[2018-07-22] MEDS ORDERED: PREGABALIN 100 MG CAPSULE PO SCH (10:00)
--- NOTE | 2018-07-22 10:12 | CON.NEP ---
Consult Consult Specialty:: Nephrology Reason for Consultation:: esrd - History of Present Illness Chief Complaint: lethargy History of Present Illness: Patient is a 53F with extensive medical history, including DM, ESRD (dialyzed usually at [facility]), recent ex-lap at [facility] (), multiple AV fistula failures here today complaining of altered mental status. Paramedics report that she was found down and altered with pinpoint pupils. 2mg of narcan was given with rapid improvement. Patient reports taking her normal amount of percocet, but was seen at [facility] and left against medical advice yesterday for a similar presentation. She was discharged Monday from [facility]. She is not a good historian. Remains lethargic though she answers questions. 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) History of Recent Travel: No Home Medications - Allergies Allergies/Adverse Reactions: Allergies Allergy/AdvReac Type Severity Reaction Status Date / Time No Known Allergies Allergy Verified 06/25/18 12:50 - Home Medications Home Medications: Ambulatory Orders Furosemide [Lasix] 80 mg PO DAILY 05/11/17 Pregabalin [Lyrica] 100 mg PO DAILY 05/11/17 Simvastatin 40 mg PO DAILY 05/11/17 Docusate Sodium [Colace] 100 mg PO DAILY 10/16/17 Quetiapine Fumarate [Seroquel -] 200 mg PO HS 10/16/17 oxyCODONE HCL [Roxicodone -] 10 mg PO Q4H PRN tablet MDD 6 10/27/17 Aspirin Coated [Ecotrin -] 81 mg PO DAILY #30 tablet.ec 11/10/17 Amitriptyline HCl [Elavil -] 100 mg PO DAILY 02/11/18 Calcium Acetate 2 cap PO TID 02/11/18 Cetirizine HCl 10 mg PO DAILY 02/11/18 Diphenhydramine HCl 25 mg PO DAILY 02/11/18 Enoxaparin Sodium 40 mg SQ DAILY 02/11/18 Escitalopram Oxalate [Lexapro -] 20 mg PO DAILY 02/11/18 Esomeprazole Magnesium 40 mg PO BID 02/11/18 LORazepam [Ativan] 1 mg PO DAILY 02/11/18 Enoxaparin [Lovenox -] 30 mg SQ DAILY #30 disp.syrin 03/22/18 Sevelamer Carbonate [Renvela -] 800 mg PO TIDCM tab 03/22/18 Family Disease History - Family Disease History Family Disease History: Other: Mother (polycystic disease, CVA, brain aneurysm) , Son, Daughter Review of Systems Unable to obtain ROS, reason: lethargy Nephrology Consult - Height Height: 5 ft 10.5 in - Weight Weight: 240 lb - BMI Body Mass Index (BMI): 33.9 - Lab Results CBC,BMP: CBC, BMP 07/21/18 19:45 07/21/18 19:45 Anion Gap: Anion Gap Anion Gap 12 MMOL/L (8-16) 07/21/18 19:45 - Imaging Chest X-ray: Report Reviewed - Physical Examination Vital Signs: Vital Signs Temperature 97.3 F L 07/22/18 07:47 Pulse Rate 77 07/22/18 07:47 Respiratory Rate 22 H 07/22/18 07:47 Blood Pressure 119/71 07/22/18 07:47 O2 Sat by Pulse Oximetry (%) 96 07/22/18 07:47 Constitutional: Yes: Well Nourished, No Distress Eyes: Yes: Conjunctiva Clear, EOM Intact HENT: Yes: Atraumatic, Normocephalic Neck: Yes: Supple, Trachea Midline Cardiovascular: Yes: Regular Rate and Rhythm, Murmur Respiratory: Yes: CTA Bilaterally Gastrointestinal: Yes: Soft, Other (has a dressing, decreased breath sounds) Renal/: Yes: WNL Access for Hemodialysis: Permacath Musculoskeletal: Yes: WNL Extremities: Yes: WNL Edema: No Neurological: Yes: Dysarthria, Lethargy Assessment/Plan IMPRESSION ESRD pt with lethargy which is likely due to narcotic analgesia especially since she responded to narcan at the field, but has also missed HD a few times PLAN will make arrangements for HD follow up CT scan surgical evaluation will need records from [facility] no heparin will give epogen MV
[2018-07-22] MEDS ORDERED: INSULIN SLIDING SCALE (NOVOLOG) 1 VIAL SQ SCH (11:00)
[2018-07-22] MEDS: DOCUSATE SODIUM 100 MG CAPSULE (FP) PO SCH (11:52)
[2018-07-22] MEDS: ASPIRIN COATED 81 MG TABLET.EC PO SCH (11:53)
[2018-07-22] MEDS: ENOXAPARIN NA (PORCINE) 30 MG/0.3 ML DISP.SYRIN SQ SCH (11:53)
[2018-07-22] MEDS: AMITRIPTYLINE HCL 25 MG TABLET (FP) PO SCH (11:53)
[2018-07-22] MEDS: PANTOPRAZOLE 40 MG TABLET (FP) PO SCH ×2 (11:53→21:34)
[2018-07-22] MEDS: INSULIN SLIDING SCALE (NOVOLOG) 1 VIAL SQ SCH ×3 (11:53→21:18)
[2018-07-22] MEDS: SEVELAMER CARBONATE 800 MG TAB (FP) PO SCH ×3 (11:54→17:06)
[2018-07-22] MEDS: CALCIUM ACETATE 667 MG CAPSULE (FP) PO SCH ×2 (12:19→17:07)
[2018-07-22] MEDS ORDERED: SODIUM CHLORIDE 250 ML IV PRN (13:27)
[2018-07-22] MEDS ORDERED: EPOETIN ALFA 10,000 UNIT/1 ML VIAL SQ ONE (13:30)
--- NOTE | 2018-07-22 13:33 | HP ---
DATE OF ADMISSION: 07/22/2018 CHIEF COMPLAINT: Feeling weak. HISTORY OF PRESENT ILLNESS: This is a 53-year-old female with past medical history of diabetes, hypertension, chronic pain, has been on dialysis for a few years now, had multiple admissions to the hospital with respiratory failure. She was actually was in [facility] yesterday with probably overdose of narcotics and she was given Narcan over there and then she was supposed to be admitted there but she signed out against medical advice. She came to the ER today with weakness and she had not taken her dialysis for the last 3 sessions. It was supposed to be Monday, Monday, Monday; she has not done it. She is complaining of weakness but denies any fever, chills, nausea, vomiting, and is complaining of pain everywhere. PAST MEDICAL HISTORY: Hypertension, diabetes, renal failure. She had a hernia repair and also she had multiple AV fistulas and grafts done. REVIEW OF SYSTEMS: Anemia: Positive. Asthma: Yes. Cancer: No. Cardiac disease: No. CVA: No. COPD: No. CHF: No. Dementia: None. Diabetes: Yes. She is on dialysis. Denies any other complaints. History of hyperglycemia also, and a history of psychiatric disorder. She still smokes, and lives with her family. No alcohol use. EXAMINATION: General: A middle-aged woman lying in bed. She looks comfortable but tired. Vital Signs: Blood pressure is 150/95, heart rate is 98. HEENT: Pallor positive. Neck: Supple. Negative JVD. Thyroid not enlarged. Lungs: Bilaterally clear. Heart: S1, S2 positive. Abdomen: Soft, nontender. No organomegaly. Bowel sounds are normal. ASSESSMENT AND PLAN: Weakness, possibly due to anemia or missing her dialysis. Her hemoglobin is 7.7 at this time. The white count is normal. Platelet count is normal also. I have already called Nephrology for possible dialysis today. Her potassium is high and sodium is low. Once she has dialysis done, we will repeat the labs tomorrow. In the ER she had workup done, CAT scan of the head and also CAT scan of the abdomen; results are still pending. Other labs are showing that she has a normal white count. Hemoglobin 7.7. PT/INR is normal. Blood gas is okay, pH 7.29, which is due to she missed dialysis, mild acidosis. Her creatinine is very high because she missed her dialysis. Influenza test is negative. At this time, we will admit to the hospital and start hemodialysis on her, and we will follow. TAMARA RAMIREZ M.D. [id number]
[2018-07-22] MEDS ORDERED: ATORVASTATIN CA 10 MG TABLET (FP) ONE (21:21)
[2018-07-22] MEDS ORDERED: QUEtiapine FUMARATE 100 MG TABLET (FP) ONE (21:22)
[2018-07-22] MEDS: QUEtiapine FUMARATE 200 MG TABLET PO SCH (21:34)
[2018-07-22] MEDS: ATORVASTATIN CA 20 MG TABLET (FP) PO SCH (21:34)
[2018-07-23] MEDS: INSULIN SLIDING SCALE (NOVOLOG) 1 VIAL SQ SCH ×4 (06:18→22:15)
--- NOTE | 2018-07-23 08:49 | PN ---
Progress Note (short form) - Note Progress Note: CBC, BMP 07/21/18 19:45 07/21/18 19:45 Vital Signs Period Temp Pulse Resp BP Sys/Chan Pulse Ox Last 24 Hr 97.4 F-98.1 F 74-91 18-18 103-173/56-90 96 events reviewed s1s2 rrr lungs cta abd retention sutures with small area of opening, otherwise without sign of infection right arm open wound with packing-opt had iv access for TPN and [facility] abd soft +BS no edema arousable but very difficult to elicit history from pt, still groggy occasional jerks present moves all 4 extremities equally, no focal deficit ESRD recent open surgery removal of infected abdominal mesh recent bacteremia MRSA+ 4 weeks ago morbid obesity no with metabolic encephalopathy due to missed hd, and percocet overuse spoke to RATOPRINTER working with at [facility]-her next appointment is ion [phone] She should be on augmentin 875 qhs po and daptom,ycine 1000 mg iv with HD every other day will oredr for abx and obtain CPK to r/o muscle injury with high dapto dose
[2018-07-23] MEDS: SEVELAMER CARBONATE 800 MG TAB (FP) PO SCH ×4 (09:22→18:52)
[2018-07-23] MEDS: CALCIUM ACETATE 667 MG CAPSULE (FP) PO SCH ×4 (09:22→18:52)
[2018-07-23] MEDS: ENOXAPARIN NA (PORCINE) 30 MG/0.3 ML DISP.SYRIN SQ SCH (09:23)
[2018-07-23] MEDS: DOCUSATE SODIUM 100 MG CAPSULE (FP) PO SCH (09:23)
[2018-07-23] MEDS: PANTOPRAZOLE 40 MG TABLET (FP) PO SCH ×2 (09:23→22:10)
[2018-07-23] MEDS: ASPIRIN COATED 81 MG TABLET.EC PO SCH (09:23)
[2018-07-23] MEDS: AMITRIPTYLINE HCL 25 MG TABLET (FP) PO SCH (09:23)
[2018-07-23] MEDS ORDERED: INSULIN (NOVOLOG) ASPART 100 UNITS/ML 10ML VIAL ONE (12:40)
--- NOTE | 2018-07-23 17:39 | PN ---
Progress Note, Physician History of Present Illness: Pt seen and examined at bedside. SHe is awake and alert. She denies shortness of breath. - Current Medication List Current Medications: Active Medications Acetaminophen (Tylenol -) 650 mg PO Q4H PRN PRN Reason: PAIN Amitriptyline HCl (Elavil -) 100 mg PO DAILY [facility] Last Admin: 07/23/18 09:23 Dose: 100 mg Amoxicillin/Clavulanate Potassium (Augmentin - 875mg Tablet) 1 tab PO [facility] Aspirin (Ecotrin -) 81 mg PO DAILY [facility] Last Admin: 07/23/18 09:23 Dose: 81 mg Atorvastatin Calcium (Lipitor -) 20 mg PO HS [facility] Last Admin: 07/22/18 21:34 Dose: 20 mg Calcium Acetate (Phoslo -) 1,334 mg PO TIDCM [facility] Last Admin: 07/23/18 14:26 Dose: Not Given Docusate Sodium (Colace -) 100 mg PO DAILY [facility] Last Admin: 07/23/18 09:23 Dose: 100 mg Enoxaparin Sodium (Lovenox -) 30 mg SQ DAILY [facility] Last Admin: 07/23/18 09:23 Dose: 30 mg Daptomycin 1,000 mg/ Sodium (Chloride) 50 mls @ 100 mls/hr IVPB Q48H [facility]; Protocol Insulin Aspart (Novolog Vial Sliding Scale -) 1 vial SQ ACHS [facility]; Protocol Last Admin: 07/23/18 16:56 Dose: Not Given Oxycodone HCl (Roxicodone -) 5 mg PO Q4H PRN PRN Reason: PAIN LEVEL 7 - 10 Pantoprazole Sodium (Protonix -) 40 mg PO BID [facility] Last Admin: 07/23/18 09:23 Dose: 40 mg Quetiapine Fumarate (Seroquel -) 200 mg PO HS [facility] Last Admin: 07/22/18 21:34 Dose: 200 mg Sevelamer Carbonate (Renvela -) 800 mg PO TIDCM [facility] Last Admin: 07/23/18 14:26 Dose: Not Given - Objective Vital Signs: Vital Signs Temperature 98.1 F 07/23/18 09:28 Pulse Rate 91 H 07/23/18 09:28 Respiratory Rate 18 07/23/18 09:28 Blood Pressure 128/77 07/23/18 09:28 O2 Sat by Pulse Oximetry (%) 96 07/22/18 20:07 Constitutional: Yes: Calm Eyes: Yes: Conjunctiva Clear HENT: Yes: Atraumatic Neck: Yes: Supple Cardiovascular: Yes: S1, S2 Respiratory: Yes: On Nasal O2 Gastrointestinal: Yes: Abdomen, Obese, Other (sutures in place) Genitourinary: Yes: Incontinence Musculoskeletal: Yes: Muscle Weakness Edema: No Neurological: Yes: Oriented Psychiatric: Yes: Oriented Labs: CBC, BMP 07/21/18 19:45 07/21/18 19:45 INR, PTT INR 1.16 (0.83-1.09) H 07/21/18 19:45 Assessment/Plan Current Medications Generic Name Dose Route Start Last Admin Trade Name Freq PRN Reason Stop Dose Admin Acetaminophen 650 mg 07/22/18 07:47 Tylenol - PO Q4H PRN PAIN Amitriptyline HCl 100 mg 07/22/18 10:00 07/23/18 09:23 Elavil - PO 100 mg DAILY DAVID Administration Amoxicillin/Clavulanate Potassium 1 tab 07/23/18 22:00 Augmentin - 875mg Tablet PO HS DAVID Aspirin 81 mg 07/22/18 10:00 07/23/18 09:23 Ecotrin - PO 81 mg DAILY DAVID Administration Atorvastatin Calcium 20 mg 07/22/18 22:00 07/22/18 21:34 Lipitor - PO 20 mg HS DAVID Administration Calcium Acetate 1,334 mg 07/22/18 12:00 07/23/18 14:26 Phoslo - PO Not Given TIDCM [facility] Docusate Sodium 100 mg 07/22/18 10:00 07/23/18 09:23 Colace - PO 100 mg DAILY DAVID Administration Enoxaparin Sodium 30 mg 07/22/18 10:00 07/23/18 09:23 Lovenox - SQ 30 mg DAILY DAVID Administration Daptomycin 1,000 mg/ Sodium 50 mls @ 100 mls/hr 07/23/18 11:30 Chloride IVPB Q48H [facility] Protocol Insulin Aspart 1 vial 07/22/18 11:00 07/23/18 16:56 Novolog Vial Sliding Scale - SQ Not Given ACHS [facility] Protocol Oxycodone HCl 5 mg 07/23/18 09:05 Roxicodone - PO Q4H PRN PAIN LEVEL 7 - 10 Pantoprazole Sodium 40 mg 07/22/18 10:00 07/23/18 09:23 Protonix - PO 40 mg BID DAVID Administration Quetiapine Fumarate 200 mg 07/22/18 22:00 07/22/18 21:34 Seroquel - PO 200 mg HS DAVID Administration Sevelamer Carbonate 800 mg 07/22/18 08:00 07/23/18 14:26 Renvela - PO Not Given TIDCM DAVID Impression 1. ESRD 2. abdominal pain 3. sleep apnea 4. htn 5. dm 6. asthma 7. obesity 8. anxiety 9. hx of acute psychosis/delusions 10. hx hyperkalemia Plan - HD in am - pt dialyzed yesterday - pt does not have IV access - surgery eval - discussed with pmd - will follow
--- NOTE | 2018-07-23 18:22 | CONSULT ---
Consult Consult Specialty:: General Surgery Referred by:: Dr. Glasgow Reason for Consultation:: s/p abdominal surgery w/retention sutures - ?wound care - History of Present Illness Chief Complaint: my bottom/butt hurts History of Present Illness: 53yo morbidly obese F diabetic smoker with ESRD from PCKD on HD via L chest [facility], h/o multiply recurrent ventral hernias s/p repairs x4 including 2 laparoscopic with mesh, followed by laparotomy with partial bowel resection ( colon?) for pneumatosis/obstruction 05/26 at [facility] (transferred there from here), who was seen 06/25/18 with central/periumbilical/epigastric abdominal pain and recurrent herniation of small bowel through her mesh with overlying skin changes. She was dialyzed here, then sent to [facility], where she apparently had laparotomy with removal of all mesh, unknown if bowel was resected, and abdominal wall was primarily closed with retention sutures, which are still in place. She was discharged from there 07/17/18 to home (reportedly refused rehab placement), and has since missed all HD appointments. She was at [facility] before here, reportedly for similar symptoms, but left AMA. She was brought in by her daughter for altered mental status, lethargy, generalized weakness, decreased appetite, to ER 3 nights ago. She had a T 100.7, normal wbc , high BUN/Cr and K 5.3 slt hemolyzed consistent with needing dialysis, which she has had once since. She is admitted to medicine, who would like surgery to evaluate for any need for wound care, given her recent incision. She is seen and examined in ER holding, as she does not yet have a bed upstairs , and she is sleeping but arousable. She offers little history, but does deny abdominal pain. She c/o pain in her bottom. She felt that when she goes to [facility] , "every time I go there, I'm worse when I get out." She gives no specific reason for having missed dialysis when she was at home, nor for not eating much. She does say she is hungry and thirsty. She is also tearful at times, and at one point stated, "I just want to ." She dozes off intermittently during the first half of the exam. She is able to roll up onto her side for exam of her bottom. She also states, "I'm in so much pain." She wants to see her daughter, who is not present at this time. - History Source History Provided By: Patient, Medical Record, Caregiver (Dr. 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 at [facility] 05/26 for pneumatosis coli), , Hernia Repair (x4, 2 with mesh laparoscopically; all prior to laparotomy at [facility] for pneumatosis with bowel resection; recent mesh removal, bowel resection and primary fascial closure at [facility] 06/26 with retention sutures) Additional Surgical History: mult lines/access for HD; multiple declotting procedures; currently with L chest permacath - Alcohol/Substance Use Hx Alcohol Use: No History of Substance Use: reports: None, Prescription (Percocet ?how much how often) - Smoking History Smoking history: Current every day smoker Have you smoked in the past 12 months: Yes Aproximately how many cigarettes per day: 20 - Social History Usual Living Arrangement: With Child ADL: Support Services (has an aid now, has 2 kids 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) History of Recent Travel: No Home Medications - Allergies Allergies/Adverse Reactions: Allergies Allergy/AdvReac Type Severity Reaction Status Date / Time No Known Allergies Allergy Verified 06/25/18 12:50 - Home Medications Home Medications: Ambulatory Orders Furosemide [Lasix] 80 mg PO DAILY 05/11/17 Pregabalin [Lyrica] 100 mg PO DAILY 05/11/17 Simvastatin 40 mg PO DAILY 05/11/17 Docusate Sodium [Colace] 100 mg PO DAILY 10/16/17 Quetiapine Fumarate [Seroquel -] 200 mg PO HS 10/16/17 oxyCODONE HCL [Roxicodone -] 10 mg PO Q4H PRN tablet MDD 6 10/27/17 Aspirin Coated [Ecotrin -] 81 mg PO DAILY #30 tablet.ec 11/10/17 Amitriptyline HCl [Elavil -] 100 mg PO DAILY 02/11/18 Calcium Acetate 2 cap PO TID 02/11/18 Cetirizine HCl 10 mg PO DAILY 02/11/18 Diphenhydramine HCl 25 mg PO DAILY 02/11/18 Enoxaparin Sodium 40 mg SQ DAILY 02/11/18 Escitalopram Oxalate [Lexapro -] 20 mg PO DAILY 02/11/18 Esomeprazole Magnesium 40 mg PO BID 02/11/18 LORazepam [Ativan] 1 mg PO DAILY 02/11/18 Enoxaparin [Lovenox -] 30 mg SQ DAILY #30 disp.syrin 03/22/18 Sevelamer Carbonate [Renvela -] 800 mg PO TIDCM tab 03/22/18 Family Disease History - Family Disease History Family Disease History: Other: Mother (polycystic disease, CVA, brain aneurysm) , Son, Daughter Review of Systems Unable to obtain ROS, reason: pt poorly responsive - Review of Systems Gastrointestinal: denies: Abdominal Pain Genitourinary: reports: Other (does make some urine despite HD) Musculoskeletal: reports: Back Pain, Other (buttock pain) Psychiatric: reports: Anxiety, Depression, Suicidal ("I just want to ") Physical Exam Vital Signs: Vital Signs Temperature 98.1 F 07/23/18 09:28 Pulse Rate 91 H 07/23/18 09:28 Respiratory Rate 18 07/23/18 09:28 Blood Pressure 128/77 07/23/18 09:28 O2 Sat by Pulse Oximetry (%) 96 07/22/18 20:07 Constitutional: Yes: No Distress, Calm, Obese, Other (sleeping, dozing once woken, tearful at times) Eyes: Yes: Conjunctiva Clear, EOM Intact HENT: Yes: Atraumatic, Normocephalic Neck: Yes: Supple, Trachea Midline Cardiovascular: Yes: Regular Rate and Rhythm, Murmur Respiratory: Yes: Regular, CTA Bilaterally, On Nasal O2 Gastrointestinal: Yes: Normal Bowel Sounds, Soft, Abdomen, Obese, Other ( midline incision, healing with retention sutures in place; in midportion, between sutures, there is small skin gap with clean yellow base (~0.5cm); there is some dried blood/crusting on sutures and one area at right side of an upper suture where rubber bolster eroded skin slightly - crusts removed as able, area recovered with gauze, folded ABD and tape). No: Hernia (no palpable hernia - LLQ palpated where small SB loop appears to be herniated, but cannot clearly palpate lump, nor is pt tender there), Palpable Mass, Tenderness (except incisionally when sutures manipulated) ...Rectal Exam: Yes: Deferred, Other (dried, sloughing skin in perirectal area, few small spots of skin breakdown, clean, red/pink, no bleeding, tender bilaterally) Renal/: No: Liao Present, Incontinence Musculoskeletal: Yes: Back Pain. No: Joint Swelling Extremities: No: Cool, Cyanosis Edema: No Peripheral Pulses WNL: Yes Integumentary: Yes: Incision (midline w/retention sutures). No: Jaundice, Rash Wound/Incision: Yes: Sutures Intact, Dressing Dry and Intact, Dressing Removed ( and replaced), Other (crusting at sutures, removed as able with gauze, very small open area centrally, gauze tucked into and left on top of). No: Sutures Removed, Reddened Neurological: Yes: Alert (wakes up but drowsy while talking, does not/cannot? answer all questions, no focal deficits), Oriented, Lethargy Psychiatric: Yes: Suicidal Ideation ("I just want to " - stated at one point , tearful). No: Agitated Labs: CBC, BMP 07/21/18 19:45 07/21/18 19:45 NO NEW LABS until hemodialysis - extremely poor venous access CMP Sodium 132 mmol/L (136-145) L 07/21/18 19:45 Potassium 5.3 mmol/L (3.5-5.1) H 07/21/18 19:45 Chloride 97 mmol/L (98-107) L 07/21/18 19:45 Carbon Dioxide 23 mmol/L (21-32) 07/21/18 19:45 Anion Gap 12 MMOL/L (8-16) 07/21/18 19:45 BUN 50 mg/dL (7-18) H 07/21/18 19:45 Creatinine 12.0 mg/dL (0.55-1.3) H* 07/21/18 19:45 Creat Clearance w eGFR 3.31 (>60) 07/21/18 19:45 POC Glucometer 117.61901 UNITS (80-120) 07/23/18 06:12 Random Glucose 91 mg/dL (74-106) 07/21/18 19:45 Lactic Acid 0.6 mmol/L (0.4-2.0) 07/21/18 19:45 Calcium 8.5 mg/dL (8.5-10.1) 07/21/18 19:45 Total Bilirubin 0.3 mg/dL (0.2-1) 07/21/18 19:45 AST 55 U/L (15-37) H 07/21/18 19:45 ALT 23 U/L (13-61) 07/21/18 19:45 Alkaline Phosphatase 73 U/L (45-117) 07/21/18 19:45 Troponin I 0.03 ng/ml (0.00-0.05) 07/21/18 19:45 Total Protein 8.3 g/dl (6.4-8.2) H 07/21/18 19:45 Albumin 2.2 g/dl (3.4-5.0) L 07/21/18 19:45 INR, PTT INR 1.16 (0.83-1.09) H 07/21/18 19:45 Imaging - Results Cat Scan: Report Reviewed, Image Reviewed (images reviewed - abdominal wall s/p mesh removal, well-approximated with sutures in place, no obstruction evident, small knuckle of SB herniated in LLQ ?near surgical margin? - bowel anastomotic lines visible) Problem List - Problems (1) Presence of surgical incision Assessment/Plan: s/p laparotomy with mesh removal and ?bowel resection at [facility] few weeks ago incision with retention sutures, overall healing well very small spot with skin gap/superficial dehiscence would keep area covered daily, but no specific wound care likely needed pt does not complain of pain or tenderness in abdomen will try to touch base with surgeon tomorrow per primary team, she has f/u visit scheduled for 08/01 unclear if pt will follow up as intended on her own would discuss with family impressed upon patient need to follow up with her surgeons as requested also encouraged her to accept rehab placement if necessary, as she does not seem appropriate for home discharge at this time pain meds should be given with consideration of her tolerance and dependence levels and chronic use for other pain needs Code(s): Z78.9 - OTHER SPECIFIED HEALTH STATUS (2) Incisional hernia, without obstruction or gangrene Assessment/Plan: SB loop appears herniated in LLQ no apparent tenderness or obvious proximal bowel dilation to suggest obstruction if I can reach [facility] surgeon, will discuss with him Code(s): K43.2 - INCISIONAL HERNIA WITHOUT OBSTRUCTION OR GANGRENE (3) ESRD (end stage renal disease) on dialysis Code(s): N18.6 - END STAGE RENAL DISEASE; Z99.2 - DEPENDENCE ON RENAL DIALYSIS (4) Diabetes mellitus with diabetic neuropathy, with long-term current use of insulin Assessment/Plan: recommend diabetic, sodium restricted diet Code(s): E11.40 - TYPE 2 DIABETES MELLITUS WITH DIABETIC NEUROPATHY, UNSP; Z79.4 - SAFETY SITTER (CURRENT) USE OF INSULIN Qualifiers: Diabetes mellitus type: type 2 Qualified Code(s): E11.40 - Type 2 diabetes mellitus with diabetic neuropathy, unspecified; Z79.4 - penitentiary (current) use of insulin (5) Chronic pain disorder Code(s): G89.4 - CHRONIC PAIN SYNDROME (6) HTN (hypertension) Code(s): I10 - ESSENTIAL (PRIMARY) HYPERTENSION Qualifiers: Hypertension type: essential hypertension Qualified Code(s): I10 - Essential (primary) hypertension (7) Obesity (BMI 30.0-34.9) Code(s): E66.9 - OBESITY, UNSPECIFIED Assessment/Plan also with mild skin breakdown in perirectal area with sloughing skin need good hygiene and local wound care (?duoderm) for open areas along with PRESSURE RELIEF - encourage pt to lie side to side to side and not on back/midline
[2018-07-23] MEDS: ATORVASTATIN CA 20 MG TABLET (FP) PO SCH (22:10)
[2018-07-23] MEDS: AMOX TR/POT CLAV 875MG/125MG TABLETS (FP) PO SCH (22:10)
[2018-07-23] MEDS: QUEtiapine FUMARATE 200 MG TABLET PO SCH (22:10)
[2018-07-24 02:13] LABS: HBsAG SCREEN Negative (Negative)
[2018-07-24] MEDS ORDERED: QUEtiapine FUMARATE 100 MG TABLET (FP) ONE (03:18)
[2018-07-24] MEDS ORDERED: AMOX TR/POT CLAV 875MG/125MG TABLETS (FP) ONE (03:18)
[2018-07-24] MEDS ORDERED: ATORVASTATIN CA 10 MG TABLET (FP) ONE (03:18)
[2018-07-24] MEDS ORDERED: PANTOPRAZOLE 40 MG TABLET (FP) ONE (03:18)
--- NOTE | 2018-07-24 08:34 | PN ---
Progress Note (short form) - Note Progress Note: Vital Signs Period Temp Pulse Resp BP Sys/Chan Pulse Ox Last 24 Hr 98.0 F-98.5 F 79-91 16-21 103-128/48-77 97-98 events reviewed s1s2 rrr lungs cta abd retention sutures with small area of opening, otherwise without sign of infection right arm open wound with packing- had iv access for TPN at [facility] abd soft +BS no edema awake alert, mentation is at baseline occasional jerks present moves all 4 extremities equally, no focal deficit ESRD recent open surgery removal of infected abdominal mesh recent bacteremia MRSA+ 4 weeks ago morbid obesity resolving metabolic encephalopathy due to missed hd, and percocet overuse labs with HD today wound care abx as oremonyed d/w pt she will needs STR now, unable to go home at present PT requested consults greatly appreciated
[2018-07-24] MEDS: INSULIN SLIDING SCALE (NOVOLOG) 1 VIAL SQ SCH ×4 (09:12→21:57)
[2018-07-24] MEDS: SEVELAMER CARBONATE 800 MG TAB (FP) PO SCH ×3 (09:12→18:36)
[2018-07-24] MEDS: CALCIUM ACETATE 667 MG CAPSULE (FP) PO SCH ×3 (09:12→18:34)
[2018-07-24] MEDS ORDERED: SODIUM CHLORIDE 250 ML IV PRN (09:27)
[2018-07-24] MEDS ORDERED: HEPARIN NA (PORCINE) 5,000 UNITS/ML 1ML VIAL IVPUSH ONE (09:30)
[2018-07-24 09:54] LABS: BASO % 0.3 % (0-2.0); EOS % 4.7 % (0-4.5); HEMATOCRIT 21.7 % (32.4-45.2); LYMPH % 21.1 % (8-40); MCH 29.8 pg (25.7-33.7); MCHC 32.2 g/dl (32.0-36.0); MEAN CELL VOLUME 92.6 fl (80-96); MEAN PLT VOLUME 9.1 fl (7.5-11.1); MONO % 8.2 % (3.8-10.2); NEUT % 65.7 % (42.8-82.8); PLATELET COUNT 143 K/MM3 (134-434); RBC 2.35 M/mm3 (3.60-5.2); RDW 17.9 % (11.6-15.6); WHITE BLOOD COUNT 3.5 K/mm3 (4.0-10.0)
[2018-07-24] MEDS ORDERED: EPOETIN ALFA 10,000 UNIT/1 ML VIAL IVPUSH ONE (10:00)
[2018-07-24 10:28] LABS: ALBUMIN 2.1 g/dl (3.4-5.0); ALK PHOS 65 U/L (45-117); ANION GAP 10 MMOL/L (8-16); BILIRUBIN,TOTAL 0.3 mg/dL (0.2-1); BLOOD UREA NITROGEN 37 mg/dL (7-18); CALCIUM 8.4 mg/dL (8.5-10.1); CHLORIDE 100 mmol/L (98-107); CO2 28 mmol/L (21-32); GLUCOSE,RANDOM 64 mg/dL (74-106); PHOSPHOROUS 5.2 mg/dL (2.5-4.9); POTASSIUM 4.3 mmol/L (3.5-5.1); SGOT/AST 22 U/L (15-37); SGPT/ALT 20 U/L (13-61); SODIUM 138 mmol/L (136-145); TOT PROT 7.7 g/dl (6.4-8.2)
[2018-07-24 10:45] LABS: CREATININE 10.2 mg/dL (0.55-1.3)
[2018-07-24] MEDS: DAPTOMYCIN 1,000 MG in SODIUM CHLORIDE 50 ML IVPB SCH (13:02)
[2018-07-24] MEDS: ASPIRIN COATED 81 MG TABLET.EC PO SCH (13:31)
[2018-07-24] MEDS: PANTOPRAZOLE 40 MG TABLET (FP) PO SCH ×2 (13:33→21:52)
[2018-07-24] MEDS: ENOXAPARIN NA (PORCINE) 30 MG/0.3 ML DISP.SYRIN SQ SCH (13:33)
[2018-07-24] MEDS: DOCUSATE SODIUM 100 MG CAPSULE (FP) PO SCH (13:33)
[2018-07-24] MEDS: AMITRIPTYLINE HCL 25 MG TABLET (FP) PO SCH (13:41)
--- NOTE | 2018-07-24 13:47 | PN ---
Progress Note, Physician History of Present Illness: Pt seen and examined at bedside. She is awake and alert. She is tolerating HD. She is more awake and alert. - Current Medication List Current Medications: Active Medications Acetaminophen (Tylenol -) 650 mg PO Q4H PRN PRN Reason: PAIN Amitriptyline HCl (Elavil -) 100 mg PO DAILY [facility] Last Admin: 07/23/18 09:23 Dose: 100 mg Amoxicillin/Clavulanate Potassium (Augmentin - 875mg Tablet) 1 tab PO HS [facility] Last Admin: 07/23/18 22:10 Dose: 1 tab Aspirin (Ecotrin -) 81 mg PO DAILY [facility] Last Admin: 07/23/18 09:23 Dose: 81 mg Atorvastatin Calcium (Lipitor -) 20 mg PO HS [facility] Last Admin: 07/23/18 22:10 Dose: 20 mg Calcium Acetate (Phoslo -) 1,334 mg PO TIDCM [facility] Last Admin: 07/24/18 09:12 Dose: Not Given Docusate Sodium (Colace -) 100 mg PO DAILY [facility] Last Admin: 07/23/18 09:23 Dose: 100 mg Enoxaparin Sodium (Lovenox -) 30 mg SQ DAILY [facility] Last Admin: 07/23/18 09:23 Dose: 30 mg Daptomycin 1,000 mg/ Sodium (Chloride) 50 mls @ 100 mls/hr IVPB Q2D [facility]; Protocol Last Admin: 07/24/18 13:02 Dose: 100 mls/hr Insulin Aspart (Novolog Vial Sliding Scale -) 1 vial SQ ACHS [facility]; Protocol Last Admin: 07/24/18 13:10 Dose: 2 units Oxycodone HCl (Roxicodone -) 5 mg PO Q4H PRN PRN Reason: PAIN LEVEL 7 - 10 Pantoprazole Sodium (Protonix -) 40 mg PO BID [facility] Last Admin: 07/23/18 22:10 Dose: 40 mg Quetiapine Fumarate (Seroquel -) 200 mg PO HS [facility] Last Admin: 07/23/18 22:10 Dose: 200 mg Sevelamer Carbonate (Renvela -) 800 mg PO TIDCM [facility] Last Admin: 07/24/18 09:12 Dose: Not Given - Objective Vital Signs: Vital Signs Temperature 98.5 F 07/24/18 08:55 Pulse Rate 85 07/24/18 12:35 Respiratory Rate 18 07/24/18 12:35 Blood Pressure 123/60 07/24/18 12:35 O2 Sat by Pulse Oximetry (%) 97 07/24/18 09:00 Constitutional: Yes: Calm Eyes: Yes: Conjunctiva Clear HENT: Yes: Atraumatic Neck: Yes: Supple Cardiovascular: Yes: S1, S2 Respiratory: Yes: CTA Bilaterally Gastrointestinal: Yes: Soft Genitourinary: Yes: WNL Musculoskeletal: Yes: WNL Edema: No Neurological: Yes: Oriented Psychiatric: Yes: Oriented Labs: CBC, BMP 07/24/18 09:00 INR, PTT INR 1.16 (0.83-1.09) H 07/21/18 19:45 Problem List - Problems (1) ESRD (end stage renal disease) Code(s): N18.6 - END STAGE RENAL DISEASE Assessment/Plan Current Medications Generic Name Dose Route Start Last Admin Trade Name Freq PRN Reason Stop Dose Admin Acetaminophen 650 mg 07/22/18 07:47 Tylenol - PO Q4H PRN PAIN Amitriptyline HCl 100 mg 07/22/18 10:00 07/24/18 13:41 Elavil - PO 100 mg DAILY [facility] Administration Amoxicillin/Clavulanate Potassium 1 tab 07/23/18 22:00 07/23/18 22:10 Augmentin - 875mg Tablet PO 1 tab HS [facility] Administration Aspirin 81 mg 07/22/18 10:00 07/24/18 13:31 Ecotrin - PO 81 mg DAILY [facility] Administration Atorvastatin Calcium 20 mg 07/22/18 22:00 07/23/18 22:10 Lipitor - PO 20 mg HS [facility] Administration Calcium Acetate 1,334 mg 07/22/18 12:00 07/24/18 13:32 Phoslo - PO 1,334 mg TIDCM [facility] Administration Docusate Sodium 100 mg 07/22/18 10:00 07/24/18 13:33 Colace - PO 100 mg DAILY [facility] Administration Enoxaparin Sodium 30 mg 07/22/18 10:00 07/24/18 13:33 Lovenox - SQ 30 mg DAILY [facility] Administration Daptomycin 1,000 mg/ Sodium 50 mls @ 100 mls/hr 07/24/18 10:00 07/24/18 13:02 Chloride IVPB 100 mls/hr Q2D [facility] Administration Protocol Insulin Aspart 1 vial 07/22/18 11:00 07/24/18 13:10 Novolog Vial Sliding Scale - SQ 2 units ACHS [facility] Administration Protocol Oxycodone HCl 5 mg 07/23/18 09:05 Roxicodone - PO Q4H PRN PAIN LEVEL 7 - 10 Pantoprazole Sodium 40 mg 07/22/18 10:00 07/24/18 13:33 Protonix - PO 40 mg BID [facility] Administration Quetiapine Fumarate 200 mg 07/22/18 22:00 07/23/18 22:10 Seroquel - PO 200 mg HS [facility] Administration Sevelamer Carbonate 800 mg 07/22/18 08:00 07/24/18 13:33 Renvela - PO 800 mg TIDCM [facility] Administration Impression 1. ESRD 2. abdominal pain 3. sleep apnea 4. htn 5. dm 6. asthma 7. obesity 8. anxiety 9. hx of acute psychosis/delusions 10. hx hyperkalemia Plan - HD today - transfuse unit of blood - epogen for anemia - surgery follow up - mental status improved - abx per ID - will follow
[2018-07-24 14:31] LABS: CREATININE 3.6 mg/dL (0.55-1.3)
--- NOTE | 2018-07-24 18:40 | PN ---
Progress Note, Physician History of Present Illness: 53yo morbidly obese F diabetic smoker with ESRD from PCKD on HD via L chest [facility], h/o multiply recurrent ventral hernias s/p repairs x4 including 2 laparoscopic with mesh, followed by laparotomy with partial bowel resection ( colon?) for pneumatosis/obstruction 05/26 at [facility] (transferred there from here), who was seen 06/25/18 with central/periumbilical/epigastric abdominal pain and recurrent herniation of small bowel through her mesh with overlying skin changes. She was dialyzed here, then sent to [facility], where she apparently had laparotomy with removal of all mesh, unknown if bowel was resected, and abdominal wall was primarily closed with retention sutures, which are still in place. She was discharged from there 07/17/18 to home (reportedly refused rehab placement), and has since missed all HD appointments. She was brought in by her daughter for altered mental status, lethargy, generalized weakness, decreased appetite, to ER 3 nights ago. She was at [facility] before here, reportedly for similar symptoms, but left AMA after receiving Narcan and waking up more. In our ER, she had a T 100.7, normal wbc, high BUN/ Cr and K 5.3 slt hemolyzed consistent with needing dialysis, which she has had since. She is admitted to medicine, who asked surgery to evaluate for any need for wound care, given her recent incision. She is seen and examined in bed on the floor, with her aunt present. She states she was living alone, not with her daughter, but that her home aides still came in to help (they are not live-in). She is tearful, and has not eaten dinner, but is encouraged to do so. Her abdominal dressing has been changed at least once since [facility] night. - Current Medication List Current Medications: Active Medications Acetaminophen (Tylenol -) 650 mg PO Q4H PRN PRN Reason: PAIN Amitriptyline HCl (Elavil -) 100 mg PO DAILY [facility] Last Admin: 07/24/18 13:41 Dose: 100 mg Amoxicillin/Clavulanate Potassium (Augmentin - 875mg Tablet) 1 tab PO HS [facility] Last Admin: 07/23/18 22:10 Dose: 1 tab Aspirin (Ecotrin -) 81 mg PO DAILY [facility] Last Admin: 07/24/18 13:31 Dose: 81 mg Atorvastatin Calcium (Lipitor -) 20 mg PO HS [facility] Last Admin: 07/23/18 22:10 Dose: 20 mg Calcium Acetate (Phoslo -) 1,334 mg PO TIDCM [facility] Last Admin: 07/24/18 13:32 Dose: 1,334 mg Docusate Sodium (Colace -) 100 mg PO DAILY [facility] Last Admin: 07/24/18 13:33 Dose: 100 mg Enoxaparin Sodium (Lovenox -) 30 mg SQ DAILY [facility] Last Admin: 07/24/18 13:33 Dose: 30 mg Daptomycin 1,000 mg/ Sodium (Chloride) 50 mls @ 100 mls/hr IVPB Q2D [facility]; Protocol Last Admin: 07/24/18 13:02 Dose: 100 mls/hr Insulin Aspart (Novolog Vial Sliding Scale -) 1 vial SQ ACHS [facility]; Protocol Last Admin: 07/24/18 18:32 Dose: Not Given Oxycodone HCl (Roxicodone -) 5 mg PO Q4H PRN PRN Reason: PAIN LEVEL 7 - 10 Pantoprazole Sodium (Protonix -) 40 mg PO BID [facility] Last Admin: 07/24/18 13:33 Dose: 40 mg Quetiapine Fumarate (Seroquel -) 200 mg PO [facility] Last Admin: 07/23/18 22:10 Dose: 200 mg Sevelamer Carbonate (Renvela -) 800 mg PO TIDCM [facility] Last Admin: 07/24/18 13:33 Dose: 800 mg - Objective Vital Signs: Vital Signs Temperature 98.1 F 07/24/18 15:04 Pulse Rate 86 07/24/18 15:04 Respiratory Rate 18 07/24/18 15:04 Blood Pressure 112/58 L 07/24/18 15:04 O2 Sat by Pulse Oximetry (%) 97 07/24/18 09:00 Constitutional: Yes: No Distress, Anxious, Obese Eyes: Yes: Conjunctiva Clear, EOM Intact HENT: Yes: Atraumatic, Normocephalic Gastrointestinal: Yes: Soft, Abdomen, Obese, Tenderness (incisional and mild to both sides) Extremities: Yes: Other (R upper arm with small open wound, dressed). No: Cool , Cyanosis Integumentary: Yes: Incision (midline with retention sutures), Pressure Ulcer (( present on admission) few spots at right side of rubber bolsters on retention sutures with skin erosion, local exudate). No: Jaundice, Rash Wound/Incision: Yes: Clean/Dry (minor crusting in a few spots of sutures, bolsters all intact), Well Approximated, Sutures Intact, Dressing Dry and Intact , Dressing Removed (and replaced - gauze tucked into central small skin gap, also into areas around right side of bolster erosions, gauze to cover sutures, folded ABD and tape to secure). No: Reddened Neurological: Yes: Alert, Oriented, Tremors (occasional twitching) Labs: CBC, BMP 07/24/18 09:00 07/24/18 12:30 Problem List - Problems (1) Presence of surgical incision Assessment/Plan: s/p laparotomy with mesh removal and ?bowel resection at [facility] few weeks ago incision with retention sutures, overall healing well very small spot with skin gap/superficial dehiscence would keep area covered daily, but no specific wound care likely needed also keep some gauze tucked into areas at right sided bolster erosions to manage exudate and keep wounds clean pt encouraged to eat - she has wounds to heal had HD today and blood transfusion with HD no records from [facility] in chart will try to touch base with surgeon per primary team, she has f/u visit scheduled for 08/01 unclear if pt will follow up as intended on her own would discuss with family impressed upon patient need to follow up with her surgeons as requested also encouraged her to accept rehab placement if necessary, as she does not seem appropriate for home discharge at this time pain meds should be given with consideration of her tolerance and dependence levels, and chronic use for other pain needs, to avoid withdrawal symptoms Code(s): Z78.9 - OTHER SPECIFIED HEALTH STATUS (2) Incisional hernia, without obstruction or gangrene Assessment/Plan: SB loop appears herniated in LLQ on CT no apparent tenderness or obvious proximal bowel dilation to suggest obstruction if I can reach [facility] surgeon, will discuss with him Code(s): K43.2 - INCISIONAL HERNIA WITHOUT OBSTRUCTION OR GANGRENE (3) ESRD (end stage renal disease) on dialysis Code(s): N18.6 - END STAGE RENAL DISEASE; Z99.2 - DEPENDENCE ON RENAL DIALYSIS (4) Diabetes mellitus with diabetic neuropathy, with long-term current use of insulin Assessment/Plan: recommend diabetic, sodium restricted diet Code(s): E11.40 - TYPE 2 DIABETES MELLITUS WITH DIABETIC NEUROPATHY, UNSP; Z79.4 - PENITENTIARY (CURRENT) USE OF INSULIN Qualifiers: Diabetes mellitus type: type 2 Qualified Code(s): E11.40 - Type 2 diabetes mellitus with diabetic neuropathy, unspecified; Z79.4 - computer terminal operator (current) use of insulin (5) Chronic pain disorder Code(s): G89.4 - CHRONIC PAIN SYNDROME (6) HTN (hypertension) Code(s): I10 - ESSENTIAL (PRIMARY) HYPERTENSION Qualifiers: Hypertension type: essential hypertension Qualified Code(s): I10 - Essential (primary) hypertension (7) Obesity (BMI 30.0-34.9) Code(s): E66.9 - OBESITY, UNSPECIFIED
[2018-07-24] MEDS ORDERED: INSULIN (NOVOLOG) ASPART 100 UNITS/ML 10ML VIAL ONE (21:50)
[2018-07-24] MEDS: AMOX TR/POT CLAV 875MG/125MG TABLETS (FP) PO SCH (21:52)
[2018-07-24] MEDS: ACETAMINOPHEN 325 MG TABLET (FP) PO PRN (21:52)
[2018-07-24] MEDS: ATORVASTATIN CA 20 MG TABLET (FP) PO SCH (21:52)
[2018-07-24] MEDS: QUEtiapine FUMARATE 200 MG TABLET PO SCH (22:58)
[2018-07-25] MEDS ORDERED: INSULIN (NOVOLOG) ASPART 100 UNITS/ML 10ML VIAL ONE (06:54)
[2018-07-25] MEDS: INSULIN SLIDING SCALE (NOVOLOG) 1 VIAL SQ SCH ×4 (06:59→23:36)
[2018-07-25] MEDS: CALCIUM ACETATE 667 MG CAPSULE (FP) PO SCH ×3 (10:08→17:01)
[2018-07-25] MEDS: DOCUSATE SODIUM 100 MG CAPSULE (FP) PO SCH (10:09)
[2018-07-25] MEDS: ACETAMINOPHEN 325 MG TABLET (FP) PO PRN ×2 (10:09→17:01)
[2018-07-25] MEDS: AMITRIPTYLINE HCL 25 MG TABLET (FP) PO SCH (10:09)
[2018-07-25] MEDS: PANTOPRAZOLE 40 MG TABLET (FP) PO SCH ×2 (10:09→22:43)
[2018-07-25] MEDS: SEVELAMER CARBONATE 800 MG TAB (FP) PO SCH ×3 (10:09→17:01)
[2018-07-25] MEDS: ENOXAPARIN NA (PORCINE) 30 MG/0.3 ML DISP.SYRIN SQ SCH (10:11)
[2018-07-25] MEDS: ASPIRIN COATED 81 MG TABLET.EC PO SCH (10:11)
[2018-07-25] MEDS ORDERED: SODIUM CHLORIDE 250 ML IV PRN (12:19)
--- NOTE | 2018-07-25 12:19 | PN ---
Progress Note, Physician History of Present Illness: Pt seen and examined at bedside. She is awake and alert. - Current Medication List Current Medications: Active Medications Acetaminophen (Tylenol -) 650 mg PO Q4H PRN PRN Reason: PAIN Last Admin: 07/25/18 10:09 Dose: 650 mg Amitriptyline HCl (Elavil -) 100 mg PO DAILY [facility] Last Admin: 07/25/18 10:09 Dose: 100 mg Amoxicillin/Clavulanate Potassium (Augmentin - 875mg Tablet) 1 tab PO HS [facility] Last Admin: 07/24/18 21:52 Dose: 1 tab Aspirin (Ecotrin -) 81 mg PO DAILY [facility] Last Admin: 07/25/18 10:11 Dose: 81 mg Atorvastatin Calcium (Lipitor -) 20 mg PO HS [facility] Last Admin: 07/24/18 21:52 Dose: 20 mg Calcium Acetate (Phoslo -) 1,334 mg PO TIDCM [facility] Last Admin: 07/25/18 11:52 Dose: 1,334 mg Docusate Sodium (Colace -) 100 mg PO DAILY [facility] Last Admin: 07/25/18 10:09 Dose: 100 mg Enoxaparin Sodium (Lovenox -) 30 mg SQ DAILY [facility] Last Admin: 07/25/18 10:11 Dose: 30 mg Daptomycin 1,000 mg/ Sodium (Chloride) 50 mls @ 100 mls/hr IVPB Q2D [facility]; Protocol Last Admin: 07/24/18 13:02 Dose: 100 mls/hr Insulin Aspart (Novolog Vial Sliding Scale -) 1 vial SQ ACHS [facility]; Protocol Last Admin: 07/25/18 11:52 Dose: Not Given Oxycodone HCl (Roxicodone -) 5 mg PO Q4H PRN PRN Reason: PAIN LEVEL 7 - 10 Pantoprazole Sodium (Protonix -) 40 mg PO BID [facility] Last Admin: 07/25/18 10:09 Dose: 40 mg Quetiapine Fumarate (Seroquel -) 200 mg PO HS [facility] Last Admin: 07/24/18 22:58 Dose: Not Given Sevelamer Carbonate (Renvela -) 800 mg PO TIDCM [facility] Last Admin: 07/25/18 11:52 Dose: 800 mg - Objective Vital Signs: Vital Signs Temperature 98.5 F 07/25/18 10:38 Pulse Rate 100 H 07/25/18 10:38 Respiratory Rate 20 07/25/18 10:38 Blood Pressure 144/88 07/25/18 10:38 O2 Sat by Pulse Oximetry (%) 96 07/24/18 21:00 Constitutional: Yes: Calm Eyes: Yes: Conjunctiva Clear HENT: Yes: Atraumatic Neck: Yes: Supple Cardiovascular: Yes: S1, S2 Respiratory: Yes: CTA Bilaterally Gastrointestinal: Yes: Soft, Other (dressing in place) Musculoskeletal: Yes: Muscle Weakness Edema: No Wound/Incision: Yes: Dressing Dry and Intact Neurological: Yes: Oriented Psychiatric: Yes: Oriented Labs: CBC, BMP 07/24/18 09:00 07/24/18 12:30 INR, PTT INR 1.16 (0.83-1.09) H 07/21/18 19:45 Problem List - Problems (1) ESRD (end stage renal disease) Code(s): N18.6 - END STAGE RENAL DISEASE Assessment/Plan Current Medications Generic Name Dose Route Start Last Admin Trade Name Freq PRN Reason Stop Dose Admin Acetaminophen 650 mg 07/22/18 07:47 07/25/18 10:09 Tylenol - PO 650 mg Q4H PRN Administration PAIN Amitriptyline HCl 100 mg 07/22/18 10:00 07/25/18 10:09 Elavil - PO 100 mg DAILY [facility] Administration Amoxicillin/Clavulanate Potassium 1 tab 07/23/18 22:00 07/24/18 21:52 Augmentin - 875mg Tablet PO 1 tab HS [facility] Administration Aspirin 81 mg 07/22/18 10:00 07/25/18 10:11 Ecotrin - PO 81 mg DAILY [facility] Administration Atorvastatin Calcium 20 mg 07/22/18 22:00 07/24/18 21:52 Lipitor - PO 20 mg HS [facility] Administration Calcium Acetate 1,334 mg 07/22/18 12:00 07/25/18 11:52 Phoslo - PO 1,334 mg TIDCM [facility] Administration Docusate Sodium 100 mg 07/22/18 10:00 07/25/18 10:09 Colace - PO 100 mg DAILY [facility] Administration Enoxaparin Sodium 30 mg 07/22/18 10:00 07/25/18 10:11 Lovenox - SQ 30 mg DAILY [facility] Administration Daptomycin 1,000 mg/ Sodium 50 mls @ 100 mls/hr 07/24/18 10:00 07/24/18 13:02 Chloride IVPB 100 mls/hr Q2D [facility] Administration Protocol Insulin Aspart 1 vial 07/22/18 11:00 07/25/18 11:52 Novolog Vial Sliding Scale - SQ Not Given ACHS [facility] Protocol Oxycodone HCl 5 mg 07/23/18 09:05 Roxicodone - PO Q4H PRN PAIN LEVEL 7 - 10 Pantoprazole Sodium 40 mg 07/22/18 10:00 07/25/18 10:09 Protonix - PO 40 mg BID [facility] Administration Quetiapine Fumarate 200 mg 07/22/18 22:00 07/24/18 22:58 Seroquel - PO Not Given HS [facility] Sevelamer Carbonate 800 mg 07/22/18 08:00 07/25/18 11:52 Renvela - PO 800 mg TIDCM [facility] Administration Impression 1. ESRD 2. abdominal pain 3. sleep apnea 4. htn 5. dm 6. asthma 7. obesity 8. anxiety 9. hx of acute psychosis/delusions 10. hx hyperkalemia Plan - HD in am - check hg - cont wound care - epogen for anemia - surgery input appreciated - mental status improved - abx per ID - will follow
--- NOTE | 2018-07-25 12:39 | PN ---
Progress Note (short form) - Note Progress Note: received 1 unit PRBC with HD yesterday Vital Signs Period Temp Pulse Resp BP Sys/Chan Pulse Ox Last 24 Hr 98.1 F-98.5 F 77-100 18-20 99-144/58-88 96-96 CBC, BMP 07/24/18 09:00 07/24/18 12:30 s1s2 rrr lungs cta abd retention sutures with small area of opening, otherwise without sign of infection right arm open wound with packing- had iv access for TPN at [facility] abd soft +BS no edema awake alert, mentation is at baseline moves all 4 extremities equally, no focal deficit denies complaints skin breakdown over gluteal folds ESRD recent open surgery removal of infected abdominal mesh recent bacteremia MRSA+ 4 weeks ago morbid obesity resolving metabolic encephalopathy due to missed hd, and percocet overuse wound care baciatracin to gluteal area abx as oredered HD tomorrow she will needs STR now, unable to go home at present PT dc planning after HD tomorrow if cbc is stable
[2018-07-25] MEDS: ATORVASTATIN CA 20 MG TABLET (FP) PO SCH (22:43)
[2018-07-25] MEDS: AMOX TR/POT CLAV 875MG/125MG TABLETS (FP) PO SCH (22:43)
[2018-07-25] MEDS: COLLAGENASE CLOSTRIDIUM HIST. 30 GRAMS TUBE TP SCH (22:44)
[2018-07-25] MEDS: BACITRACIN 15 GM TUBE TOPICAL OINTMENT TP SCH (22:45)
[2018-07-25] MEDS: QUEtiapine FUMARATE 200 MG TABLET PO SCH (22:46)
[2018-07-26] MEDS: INSULIN SLIDING SCALE (NOVOLOG) 1 VIAL SQ SCH ×5 (06:12→22:00)
[2018-07-26] MEDS: oxyCODONE HCL 5 MG TABLET PO PRN ×4 (06:33→21:32)
--- NOTE | 2018-07-26 08:39 | PN ---
Progress Note (short form) - Note Progress Note: Vital Signs Period Temp Pulse Resp BP Sys/Chan Pulse Ox Last 24 Hr 97.9 F-98.5 F 85-100 18-20 139-149/88-95 s1s2 rrr lungs cta abd retention sutures with small area of opening, otherwise without sign of infection right arm open wound with packing-some slough present abd soft +BS no edema awake alert, mentation is at baseline moves all 4 extremities equally, no focal deficit denies complaints skin breakdown over gluteal folds ESRD recent open surgery removal of infected abdominal mesh recent bacteremia MRSA+ 4 weeks ago morbid obesity resolving metabolic encephalopathy due to missed hd, and percocet overuse wound care baciatracin to gluteal area abx as oredered HD today PT dc planning after HD if cbc is stable
[2018-07-26] MEDS: CALCIUM ACETATE 667 MG CAPSULE (FP) PO SCH ×3 (10:06→18:28)
[2018-07-26] MEDS: SEVELAMER CARBONATE 800 MG TAB (FP) PO SCH ×3 (10:06→18:28)
[2018-07-26] MEDS ORDERED: EPOETIN ALFA 10,000 UNIT/1 ML VIAL IVPUSH ONE (11:15)
[2018-07-26] MEDS ORDERED: HEPARIN NA (PORCINE) 5,000 UNITS/ML 1ML VIAL IVPUSH ONE (11:15)
[2018-07-26 11:33] LABS: HEMATOCRIT 30.3 % (32.4-45.2); MCH 30.4 pg (25.7-33.7); MEAN PLT VOLUME 9.1 fl (7.5-11.1); PLATELET COUNT 145 K/MM3 (134-434); RDW 17.6 % (11.6-15.6); WHITE BLOOD COUNT 4.9 K/mm3 (4.0-10.0)
[2018-07-26 12:01] LABS: ANION GAP 8 MMOL/L (8-16); BLOOD UREA NITROGEN 33 mg/dL (7-18); CALCIUM 9.1 mg/dL (8.5-10.1); CHLORIDE 101 mmol/L (98-107); CO2 30 mmol/L (21-32); GLUCOSE,RANDOM 97 mg/dL (74-106); POTASSIUM 3.8 mmol/L (3.5-5.1); SODIUM 139 mmol/L (136-145)
[2018-07-26 12:11] LABS: CREATININE 8.2 mg/dL (0.55-1.3)
[2018-07-26] MEDS: DAPTOMYCIN 1,000 MG in SODIUM CHLORIDE 50 ML IVPB SCH (14:36)
[2018-07-26] MEDS ORDERED: PT OWN MED DRAWER 7, Y5N ONE (14:52)
[2018-07-26] MEDS: ACETAMINOPHEN 325 MG TABLET (FP) PO PRN ×2 (15:09→21:32)
[2018-07-26] MEDS: AMITRIPTYLINE HCL 25 MG TABLET (FP) PO SCH (15:09)
[2018-07-26] MEDS: ENOXAPARIN NA (PORCINE) 30 MG/0.3 ML DISP.SYRIN SQ SCH (15:10)
[2018-07-26] MEDS: ASPIRIN COATED 81 MG TABLET.EC PO SCH (15:10)
[2018-07-26] MEDS: LIDOCAINE 5% TOPICAL PATCH TP SCH (15:10)
[2018-07-26] MEDS: PANTOPRAZOLE 40 MG TABLET (FP) PO SCH ×2 (15:12→21:34)
[2018-07-26] MEDS: DOCUSATE SODIUM 100 MG CAPSULE (FP) PO SCH (15:14)
[2018-07-26 16:45] LABS: CREATININE 2.5 mg/dL (0.55-1.3)
--- NOTE | 2018-07-26 16:47 | PN ---
Progress Note, Physician History of Present Illness: Pt seen and examined at bedside. She is tolerating HD. She denies shortness of breath. - Current Medication List Current Medications: Active Medications Acetaminophen (Tylenol -) 650 mg PO Q4H PRN PRN Reason: PAIN Last Admin: 07/26/18 15:09 Dose: 650 mg Amitriptyline HCl (Elavil -) 100 mg PO DAILY [facility] Last Admin: 07/26/18 15:09 Dose: 100 mg Amoxicillin/Clavulanate Potassium (Augmentin - 875mg Tablet) 1 tab PO HS [facility] Last Admin: 07/25/18 22:43 Dose: 1 tab Aspirin (Ecotrin -) 81 mg PO DAILY [facility] Last Admin: 07/26/18 15:10 Dose: 81 mg Atorvastatin Calcium (Lipitor -) 20 mg PO HS [facility] Last Admin: 07/25/18 22:43 Dose: 20 mg Bacitracin (Bacitracin -) 1 applic TP BID [facility] Last Admin: 07/25/18 22:45 Dose: 1 applic Calcium Acetate (Phoslo -) 1,334 mg PO TIDCM [facility] Last Admin: 07/26/18 14:25 Dose: Not Given Collagenase (Santyl -) 1 applic TP DAILY [facility] Last Admin: 07/25/18 22:44 Dose: 1 applic Docusate Sodium (Colace -) 100 mg PO DAILY [facility] Last Admin: 07/26/18 15:14 Dose: 100 mg Enoxaparin Sodium (Lovenox -) 30 mg SQ DAILY [facility] Last Admin: 07/26/18 15:10 Dose: 30 mg Daptomycin 1,000 mg/ Sodium (Chloride) 50 mls @ 100 mls/hr IVPB Q2D [facility]; Protocol Last Admin: 07/26/18 14:36 Dose: 100 mls/hr Insulin Aspart (Novolog Vial Sliding Scale -) 1 vial SQ ACHS [facility]; Protocol Last Admin: 07/26/18 14:25 Dose: Not Given Lidocaine (Lidoderm Patch -) 1 patch TP DAILY [facility] Last Admin: 07/26/18 15:10 Dose: 1 patch Miscellaneous (Lidoderm Patch Removal) 1 each MC DAILY@2200 [facility] Oxycodone HCl (Roxicodone -) 5 mg PO Q4H PRN PRN Reason: PAIN LEVEL 7 - 10 Last Admin: 07/26/18 16:24 Dose: 5 mg Pantoprazole Sodium (Protonix -) 40 mg PO BID [facility] Last Admin: 07/26/18 15:12 Dose: Not Given Quetiapine Fumarate (Seroquel -) 200 mg PO HS [facility] Last Admin: 07/25/18 22:46 Dose: 200 mg Sevelamer Carbonate (Renvela -) 800 mg PO TIDCM [facility] Last Admin: 07/26/18 14:26 Dose: Not Given - Objective Vital Signs: Vital Signs Temperature 98.0 F 07/26/18 15:04 Pulse Rate 98 H 07/26/18 15:04 Respiratory Rate 18 07/26/18 15:04 Blood Pressure 137/84 07/26/18 15:04 O2 Sat by Pulse Oximetry (%) 98 07/26/18 09:00 Constitutional: Yes: Calm Eyes: Yes: Conjunctiva Clear HENT: Yes: Atraumatic Neck: Yes: Supple Cardiovascular: Yes: S1, S2 Respiratory: Yes: CTA Bilaterally Gastrointestinal: Yes: Other (dressing in place) Genitourinary: Yes: WNL Musculoskeletal: Yes: WNL Edema: No Neurological: Yes: Oriented Psychiatric: Yes: Oriented Labs: CBC, BMP 07/26/18 10:55 07/26/18 14:25 INR, PTT INR 1.16 (0.83-1.09) H 07/21/18 19:45 Problem List - Problems (1) ESRD (end stage renal disease) Code(s): N18.6 - END STAGE RENAL DISEASE Assessment/Plan Current Medications Generic Name Dose Route Start Last Admin Trade Name Freq PRN Reason Stop Dose Admin Acetaminophen 650 mg 07/22/18 07:47 07/26/18 15:09 Tylenol - PO 650 mg Q4H PRN Administration PAIN Amitriptyline HCl 100 mg 07/22/18 10:00 07/26/18 15:09 Elavil - PO 100 mg DAILY [facility] Administration Amoxicillin/Clavulanate Potassium 1 tab 07/23/18 22:00 07/25/18 22:43 Augmentin - 875mg Tablet PO 1 tab HS [facility] Administration Aspirin 81 mg 07/22/18 10:00 07/26/18 15:10 Ecotrin - PO 81 mg DAILY [facility] Administration Atorvastatin Calcium 20 mg 07/22/18 22:00 07/25/18 22:43 Lipitor - PO 20 mg HS [facility] Administration Bacitracin 1 applic 07/25/18 22:00 07/25/18 22:45 Bacitracin - TP 1 applic BID [facility] Administration Calcium Acetate 1,334 mg 07/22/18 12:00 07/26/18 14:25 Phoslo - PO Not Given TIDCM [facility] Collagenase 1 applic 07/25/18 19:15 07/25/18 22:44 Santyl - TP 1 applic DAILY [facility] Administration Docusate Sodium 100 mg 07/22/18 10:00 07/26/18 15:14 Colace - PO 100 mg DAILY [facility] Administration Enoxaparin Sodium 30 mg 07/22/18 10:00 07/26/18 15:10 Lovenox - SQ 30 mg DAILY [facility] Administration Daptomycin 1,000 mg/ Sodium 50 mls @ 100 mls/hr 07/24/18 10:00 07/26/18 14:36 Chloride IVPB 100 mls/hr Q2D [facility] Administration Protocol Insulin Aspart 1 vial 07/22/18 11:00 07/26/18 14:25 Novolog Vial Sliding Scale - SQ Not Given ACHS [facility] Protocol Lidocaine 1 patch 07/26/18 10:00 07/26/18 15:10 Lidoderm Patch - TP 1 patch DAILY [facility] Administration Miscellaneous 1 each 07/26/18 22:00 Lidoderm Patch Removal MC DAILY@2200 [facility] Oxycodone HCl 5 mg 07/23/18 09:05 07/26/18 16:24 Roxicodone - PO 5 mg Q4H PRN Administration PAIN LEVEL 7 - 10 Pantoprazole Sodium 40 mg 07/22/18 10:00 07/26/18 15:12 Protonix - PO Not Given BID [facility] Quetiapine Fumarate 200 mg 07/22/18 22:00 07/25/18 22:46 Seroquel - PO 200 mg HS [facility] Administration Sevelamer Carbonate 800 mg 07/22/18 08:00 07/26/18 14:26 Renvela - PO Not Given TIDCM [facility] Impression 1. ESRD 2. abdominal pain 3. sleep apnea 4. htn 5. dm 6. asthma 7. obesity 8. anxiety 9. hx of acute psychosis/delusions 10. hx hyperkalemia Plan - HD today - cont wound care - surgery follow up - has HD set up at [facility] - abx per ID - mental status improved - abx per ID - will follow
[2018-07-26] MEDS: BACITRACIN 15 GM TUBE TOPICAL OINTMENT TP SCH ×2 (18:44→21:32)
[2018-07-26] MEDS: COLLAGENASE CLOSTRIDIUM HIST. 30 GRAMS TUBE TP SCH (18:44)
--- NOTE | 2018-07-26 19:59 | PN ---
Progress Note, Physician History of Present Illness: 53yo morbidly obese F diabetic smoker with ESRD from [facility] on HD via L chest [facility], h/o multiply recurrent ventral hernias s/p repairs x4 including 2 laparoscopic with mesh, followed by laparotomy with partial bowel resection ( colon?) for pneumatosis/obstruction 05/26 at [facility] (transferred there from here), who was seen 06/25/18 with central/periumbilical/epigastric abdominal pain and recurrent herniation of small bowel through her mesh with overlying skin changes. She was dialyzed here, then sent to [facility], where she apparently had laparotomy with removal of all mesh, unknown if bowel was resected, and abdominal wall was primarily closed with retention sutures, which are still in place. She was discharged from there 07/17/18 to home (reportedly refused rehab placement), and had since missed HD appointments. She was brought in by her daughter for altered mental status, lethargy, generalized weakness, decreased appetite, to ER 3 nights ago. She was at [facility] before here, reportedly for similar symptoms, but left AMA after receiving Narcan and waking up more. In our ER, she had a T 100.7, normal wbc, high BUN/Cr and K 5.3 slt hemolyzed consistent with needing dialysis, which she has had since. She is admitted to medicine, who asked surgery to evaluate for any need for wound care , given her recent incision. She is seen and examined in bed. Her abdominal dressing was changed today, so is not opened right now. She c/o pain in the incision and particularly at a spot in the upper portion under the dressing at the right edge of a bolster. She requests something to sleep. She is tolerating diet. - Current Medication List Current Medications: Active Medications Acetaminophen (Tylenol -) 650 mg PO Q4H PRN PRN Reason: PAIN Last Admin: 07/26/18 15:09 Dose: 650 mg Amitriptyline HCl (Elavil -) 100 mg PO DAILY [facility] Last Admin: 07/26/18 15:09 Dose: 100 mg Amoxicillin/Clavulanate Potassium (Augmentin - 875mg Tablet) 1 tab PO HS [facility] Last Admin: 07/25/18 22:43 Dose: 1 tab Aspirin (Ecotrin -) 81 mg PO DAILY [facility] Last Admin: 07/26/18 15:10 Dose: 81 mg Atorvastatin Calcium (Lipitor -) 20 mg PO HS [facility] Last Admin: 07/25/18 22:43 Dose: 20 mg Bacitracin (Bacitracin -) 1 applic TP BID [facility] Last Admin: 07/26/18 18:44 Dose: 1 applic Calcium Acetate (Phoslo -) 1,334 mg PO TIDCM [facility] Last Admin: 07/26/18 18:28 Dose: 1,334 mg Collagenase (Santyl -) 1 applic TP DAILY [facility] Last Admin: 07/26/18 18:44 Dose: 1 applic Docusate Sodium (Colace -) 100 mg PO DAILY [facility] Last Admin: 07/26/18 15:14 Dose: 100 mg Enoxaparin Sodium (Lovenox -) 30 mg SQ DAILY [facility] Last Admin: 07/26/18 15:10 Dose: 30 mg Daptomycin 1,000 mg/ Sodium (Chloride) 50 mls @ 100 mls/hr IVPB Q2D [facility]; Protocol Last Admin: 07/26/18 14:36 Dose: 100 mls/hr Insulin Aspart (Novolog Vial Sliding Scale -) 1 vial SQ ACHS [facility]; Protocol Last Admin: 07/26/18 18:44 Dose: Not Given Lidocaine (Lidoderm Patch -) 1 patch TP DAILY [facility] Last Admin: 07/26/18 15:10 Dose: 1 patch Miscellaneous (Lidoderm Patch Removal) 1 each MC DAILY@2200 [facility] Oxycodone HCl (Roxicodone -) 5 mg PO Q4H PRN PRN Reason: PAIN LEVEL 7 - 10 Last Admin: 07/26/18 16:24 Dose: 5 mg Pantoprazole Sodium (Protonix -) 40 mg PO BID [facility] Last Admin: 07/26/18 15:12 Dose: Not Given Quetiapine Fumarate (Seroquel -) 200 mg PO HS [facility] Last Admin: 07/25/18 22:46 Dose: 200 mg Sevelamer Carbonate (Renvela -) 800 mg PO TIDCM [facility] Last Admin: 07/26/18 18:28 Dose: 800 mg - Objective Vital Signs: Vital Signs Temperature 97.8 F 07/26/18 17:52 Pulse Rate 88 07/26/18 17:52 Respiratory Rate 18 07/26/18 17:52 Blood Pressure 138/80 07/26/18 17:52 O2 Sat by Pulse Oximetry (%) 98 07/26/18 09:00 Constitutional: Yes: No Distress, Calm, Obese Eyes: Yes: Conjunctiva Clear, EOM Intact HENT: Yes: Atraumatic, Normocephalic Gastrointestinal: Yes: Soft, Abdomen, Obese, Tenderness (incisional but not to sides) Extremities: Yes: Other (upper right medial arm with dressing - changed for new gauze, tucked into small open area, which is clean but with pale soft fibrinous base, covered with gauze and tape). No: Cool, Cyanosis Integumentary: Yes: Incision (midline, dressed). No: Jaundice, Rash Wound/Incision: Yes: Well Approximated (midline, last seen), Dressing Dry and Intact (midline over retention sutures), Unapproximated (right medial upper arm , ~1cm wound, see above). No: Dressing Removed Neurological: Yes: Alert, Oriented Labs: CBC, BMP 07/26/18 10:55 07/26/18 14:25 Problem List - Problems (1) Presence of surgical incision Assessment/Plan: s/p laparotomy with mesh removal and ?bowel resection at [facility] few weeks ago incision with retention sutures, overall healing well very small spot with skin gap/superficial dehiscence would keep area covered daily, but no specific wound care likely needed also keep some gauze tucked into central gap and areas at right sided bolster erosions to manage exudate and keep wounds clean spoke to Dr. Viveros from [facility], surgeon she had been on antibiotics because of some drainage, but should have completed by now per him, if she has been afebrile without elevated wbc or significant wound drainage (it is scant/minimal), she likely does not need antibiotics anymore she should f/u in his clinic Wed 08/01 ([phone]) even if she needs to go from rehab the patient is aware and agrees to go to her followup appointment also encouraged her to accept rehab placement, as she is not likely safe for home discharge yet Code(s): Z78.9 - OTHER SPECIFIED HEALTH STATUS (2) Incisional hernia, without obstruction or gangrene Assessment/Plan: SB loop appears herniated in LLQ on CT no apparent tenderness or obvious proximal bowel dilation to suggest obstruction Dr. Viveros is aware would send her out with CD of her CT scan, so she can take it to her f/u appt with him Code(s): K43.2 - INCISIONAL HERNIA WITHOUT OBSTRUCTION OR GANGRENE (3) ESRD (end stage renal disease) on dialysis Code(s): N18.6 - END STAGE RENAL DISEASE; Z99.2 - DEPENDENCE ON RENAL DIALYSIS (4) Diabetes mellitus with diabetic neuropathy, with long-term current use of insulin Code(s): E11.40 - TYPE 2 DIABETES MELLITUS WITH DIABETIC NEUROPATHY, UNSP; Z79.4 - STONE SETTER APPRENTICE (CURRENT) USE OF INSULIN Qualifiers: Diabetes mellitus type: type 2 Qualified Code(s): E11.40 - Type 2 diabetes mellitus with diabetic neuropathy, unspecified; Z79.4 - terminologist (current) use of insulin (5) Chronic pain disorder Code(s): G89.4 - CHRONIC PAIN SYNDROME (6) HTN (hypertension) Code(s): I10 - ESSENTIAL (PRIMARY) HYPERTENSION Qualifiers: Hypertension type: essential hypertension Qualified Code(s): I10 - Essential (primary) hypertension (7) Obesity (BMI 30.0-34.9) Code(s): E66.9 - OBESITY, UNSPECIFIED
[2018-07-26] MEDS: ATORVASTATIN CA 20 MG TABLET (FP) PO SCH (21:31)
[2018-07-26] MEDS: AMOX TR/POT CLAV 875MG/125MG TABLETS (FP) PO SCH (21:31)
[2018-07-26] MEDS: QUEtiapine FUMARATE 200 MG TABLET PO SCH (21:31)
[2018-07-26] MEDS: LIDOCAINE PATCH REMOVAL MC SCH (22:13)
[2018-07-27] MEDS: MELATONIN 5 MG TABLETS PO PRN ×2 (01:46→21:17)
[2018-07-27] MEDS: oxyCODONE HCL 5 MG TABLET PO PRN ×5 (01:46→21:20)
[2018-07-27] MEDS: ACETAMINOPHEN 325 MG TABLET (FP) PO PRN ×4 (01:46→14:53)
[2018-07-27] MEDS: INSULIN SLIDING SCALE (NOVOLOG) 1 VIAL SQ SCH ×4 (07:25→21:18)
[2018-07-27] MEDS ORDERED: PT OWN MED DRAWER 7, Y5N ONE (09:46)
[2018-07-27] MEDS: SEVELAMER CARBONATE 800 MG TAB (FP) PO SCH ×3 (10:16→17:59)
[2018-07-27] MEDS: CALCIUM ACETATE 667 MG CAPSULE (FP) PO SCH ×3 (10:16→17:31)
[2018-07-27] MEDS: PANTOPRAZOLE 40 MG TABLET (FP) PO SCH ×2 (10:19→21:17)
[2018-07-27] MEDS: AMITRIPTYLINE HCL 25 MG TABLET (FP) PO SCH (10:19)
[2018-07-27] MEDS: LIDOCAINE 5% TOPICAL PATCH TP SCH (10:19)
[2018-07-27] MEDS: COLLAGENASE CLOSTRIDIUM HIST. 30 GRAMS TUBE TP SCH (10:19)
[2018-07-27] MEDS: ENOXAPARIN NA (PORCINE) 30 MG/0.3 ML DISP.SYRIN SQ SCH (10:19)
[2018-07-27] MEDS: DOCUSATE SODIUM 100 MG CAPSULE (FP) PO SCH (10:19)
[2018-07-27] MEDS: BACITRACIN 15 GM TUBE TOPICAL OINTMENT TP SCH ×2 (10:20→21:19)
[2018-07-27] MEDS: ASPIRIN COATED 81 MG TABLET.EC PO SCH (11:45)
[2018-07-27] MEDS ORDERED: SODIUM CHLORIDE 250 ML IV PRN (12:12)
--- NOTE | 2018-07-27 13:13 | PN ---
Progress Note, Physician History of Present Illness: 53yo morbidly obese F diabetic smoker with ESRD from [facility] on HD via L [facility], h/o multiply recurrent ventral hernias s/p repairs x4 including 2 laparoscopic with mesh, followed by laparotomy with partial bowel resection ( colon?) for pneumatosis/obstruction 05/[address] [facility] (transferred there from here), who was seen 06/25/18 with central/periumbilical/epigastric abdominal pain and recurrent herniation of small bowel through her mesh with overlying skin changes. She was dialyzed here, then sent to [facility], where she apparently had laparotomy with removal of all mesh, unknown if bowel was resected, and abdominal wall was primarily closed with retention sutures, which are still in place. She was discharged from there 07/17/18 to home (reportedly refused rehab placement), and had since missed HD appointments. She was brought in by her daughter for altered mental status, lethargy, generalized weakness, decreased appetite, to ER 3 nights ago. She was at [facility] before here, reportedly for similar symptoms, but left AMA after receiving Narcan and waking up more. In our ER, she had a T 100.7, normal wbc, high BUN/Cr and K 5.3 slt hemolyzed consistent with needing dialysis, which she has had since. She is admitted to medicine, who asked surgery to evaluate for any need for wound care , given her recent incision. She is seen and examined in bed. She has not yet had lunch and is resting comfortably. She states she hasn't had any sleep but would like to, but can't quite say why. "Maybe it's the pain, maybe it's being homesick, I don't know." She knows she has a f/u appt with Dr. Viveros at [facility] on the , thinks it is at 11 or 1. - Current Medication List Current Medications: Active Medications Acetaminophen (Tylenol -) 650 mg PO Q4H PRN PRN Reason: PAIN Last Admin: 07/27/18 10:26 Dose: 650 mg Amitriptyline HCl (Elavil -) 100 mg PO DAILY [facility] Last Admin: 07/27/18 10:19 Dose: 100 mg Amoxicillin/Clavulanate Potassium (Augmentin - 875mg Tablet) 1 tab PO HS [facility] Last Admin: 07/26/18 21:31 Dose: 1 tab Aspirin (Ecotrin -) 81 mg PO DAILY [facility] Last Admin: 07/27/18 11:45 Dose: 81 mg Atorvastatin Calcium (Lipitor -) 20 mg PO HS [facility] Last Admin: 07/26/18 21:31 Dose: 20 mg Bacitracin (Bacitracin -) 1 applic TP BID [facility] Last Admin: 07/27/18 10:20 Dose: 1 applic Calcium Acetate (Phoslo -) 1,334 mg PO TIDCM [facility] Last Admin: 07/27/18 11:45 Dose: 1,334 mg Collagenase (Santyl -) 1 applic TP DAILY [facility] Last Admin: 07/27/18 10:19 Dose: 1 applic Docusate Sodium (Colace -) 100 mg PO DAILY [facility] Last Admin: 07/27/18 10:19 Dose: 100 mg Enoxaparin Sodium (Lovenox -) 30 mg SQ DAILY [facility] Last Admin: 07/27/18 10:19 Dose: 30 mg Daptomycin 1,000 mg/ Sodium (Chloride) 50 mls @ 100 mls/hr IVPB Q2D [facility]; Protocol Last Admin: 07/26/18 14:36 Dose: 100 mls/hr Insulin Aspart (Novolog Vial Sliding Scale -) 1 vial SQ ACHS [facility]; Protocol Last Admin: 07/27/18 11:45 Dose: Not Given Lidocaine (Lidoderm Patch -) 1 patch TP DAILY [facility] Last Admin: 07/27/18 10:19 Dose: 1 patch Melatonin (Melatonin) 5 mg PO HS PRN PRN Reason: INSOMNIA Last Admin: 07/27/18 01:46 Dose: 5 mg Miscellaneous (Lidoderm Patch Removal) 1 each MC DAILY@2200 [facility] Last Admin: 07/26/18 22:13 Dose: 1 each Oxycodone HCl (Roxicodone -) 5 mg PO Q4H PRN PRN Reason: PAIN LEVEL 7 - 10 Last Admin: 07/27/18 10:25 Dose: 5 mg Pantoprazole Sodium (Protonix -) 40 mg PO BID [facility] Last Admin: 07/27/18 10:19 Dose: 40 mg Quetiapine Fumarate (Seroquel -) 200 mg PO HS [facility] Last Admin: 07/26/18 21:31 Dose: 200 mg Sevelamer Carbonate (Renvela -) 800 mg PO TIDCM [facility] Last Admin: 07/27/18 11:45 Dose: Not Given Zolpidem Tartrate (Ambien -) 5 mg PO HS PRN PRN Reason: INSOMNIA - Objective Vital Signs: Vital Signs Temperature 98.1 F 07/27/18 10:00 Pulse Rate 80 07/27/18 10:00 Respiratory Rate 18 07/27/18 10:00 Blood Pressure 155/90 07/27/18 10:00 O2 Sat by Pulse Oximetry (%) 99 07/27/18 09:00 Constitutional: Yes: No Distress, Calm, Obese Eyes: Yes: Conjunctiva Clear, EOM Intact HENT: Yes: Atraumatic, Normocephalic Gastrointestinal: Yes: Soft, Abdomen, Obese, Tenderness (incisional) Extremities: Yes: Other (right upper medial arm with small, clean wound with fibrinous tissue in base - dressing changed, small bit of necrotic slough removed from base; santyl used with 2x2 gauze tucked into entire wound, covered with gauze and tape). No: Cool, Cyanosis Integumentary: Yes: Incision (midline w/retention sutures). No: Jaundice, Rash Wound/Incision: Yes: Well Approximated (midline except very small spot centrally ), Sutures Intact (retentions with bolsters), Dressing Dry and Intact, Dressing Removed (and changed for gauze tucked into central gap and around edge of right upper bolster erosion, all sutures covered with gauze and then folded ABD and tape), Unapproximated (right upper medial arm wound, ~1cm, see above) Neurological: Yes: Alert, Oriented Labs: no new labs Problem List - Problems (1) Presence of surgical incision Assessment/Plan: s/p laparotomy with mesh removal and ?bowel resection at [facility] few weeks ago incision with retention sutures, overall healing well very small spot with skin gap/superficial dehiscence in center keep some gauze tucked into central gap and areas at right sided bolster erosions to manage exudate and keep wounds clean keep area covered daily, but no specific wound care otherwise needed also changed right arm wound dressing - continue Santyl to wound base with 2x2 gauze unfolded and tucked entirely within wound daily, cover with small dry gauze and tape spoke to Dr. Viveros from [facility], surgeon she had been on antibiotics because of some drainage, but should have completed by now per him, if she has been afebrile without elevated wbc or significant drainage ( scant/minimal), she likely does not need antibiotics anymore she should f/u in his clinic Wed 08/01 ([phone]) even if she needs to go from rehab the patient is aware and agrees to go to her followup appointment also encouraged her to accept rehab placement, as she is not likely safe for home discharge yet discussed with Dr. Velazco Code(s): Z78.9 - OTHER SPECIFIED HEALTH STATUS (2) Incisional hernia, without obstruction or gangrene Assessment/Plan: SB loop appears herniated in LLQ on CT no apparent tenderness or obvious proximal bowel dilation to suggest obstruction Dr. Viveros is aware would send her out with CD of her CT scan, so she can take it to her f/u appt with him Code(s): K43.2 - INCISIONAL HERNIA WITHOUT OBSTRUCTION OR GANGRENE (3) ESRD (end stage renal disease) on dialysis Code(s): N18.6 - END STAGE RENAL DISEASE; Z99.2 - DEPENDENCE ON RENAL DIALYSIS (4) Diabetes mellitus with diabetic neuropathy, with long-term current use of insulin Code(s): E11.40 - TYPE 2 DIABETES MELLITUS WITH DIABETIC NEUROPATHY, UNSP; Z79.4 - BEET FLUMER (CURRENT) USE OF INSULIN Qualifiers: Diabetes mellitus type: type 2 Qualified Code(s): E11.40 - Type 2 diabetes mellitus with diabetic neuropathy, unspecified; Z79.4 - nursing home (current) use of insulin (5) Chronic pain disorder Code(s): G89.4 - CHRONIC PAIN SYNDROME (6) HTN (hypertension) Code(s): I10 - ESSENTIAL (PRIMARY) HYPERTENSION Qualifiers: Hypertension type: essential hypertension Qualified Code(s): I10 - Essential (primary) hypertension (7) Obesity (BMI 30.0-34.9) Code(s): E66.9 - OBESITY, UNSPECIFIED
--- NOTE | 2018-07-27 14:26 | PN ---
Progress Note, Physician History of Present Illness: Pt seen and examined at bedside. She is awake and appears comfortable. She denies shortness of breath. - Current Medication List Current Medications: Active Medications Acetaminophen (Tylenol -) 650 mg PO Q4H PRN PRN Reason: PAIN Last Admin: 07/27/18 10:26 Dose: 650 mg Amitriptyline HCl (Elavil -) 100 mg PO DAILY [facility] Last Admin: 07/27/18 10:19 Dose: 100 mg Amoxicillin/Clavulanate Potassium (Augmentin - 875mg Tablet) 1 tab PO HS [facility] Last Admin: 07/26/18 21:31 Dose: 1 tab Aspirin (Ecotrin -) 81 mg PO DAILY [facility] Last Admin: 07/27/18 11:45 Dose: 81 mg Atorvastatin Calcium (Lipitor -) 20 mg PO HS [facility] Last Admin: 07/26/18 21:31 Dose: 20 mg Bacitracin (Bacitracin -) 1 applic TP BID [facility] Last Admin: 07/27/18 10:20 Dose: 1 applic Calcium Acetate (Phoslo -) 1,334 mg PO TIDCM [facility] Last Admin: 07/27/18 11:45 Dose: 1,334 mg Collagenase (Santyl -) 1 applic TP DAILY [facility] Last Admin: 07/27/18 10:19 Dose: 1 applic Docusate Sodium (Colace -) 100 mg PO DAILY [facility] Last Admin: 07/27/18 10:19 Dose: 100 mg Enoxaparin Sodium (Lovenox -) 30 mg SQ DAILY [facility] Last Admin: 07/27/18 10:19 Dose: 30 mg Daptomycin 1,000 mg/ Sodium (Chloride) 50 mls @ 100 mls/hr IVPB Q2D [facility]; Protocol Last Admin: 07/26/18 14:36 Dose: 100 mls/hr Insulin Aspart (Novolog Vial Sliding Scale -) 1 vial SQ ACHS [facility]; Protocol Last Admin: 07/27/18 11:45 Dose: Not Given Lidocaine (Lidoderm Patch -) 1 patch TP DAILY [facility] Last Admin: 07/27/18 10:19 Dose: 1 patch Melatonin (Melatonin) 5 mg PO HS PRN PRN Reason: INSOMNIA Last Admin: 07/27/18 01:46 Dose: 5 mg Miscellaneous (Lidoderm Patch Removal) 1 each MC DAILY@2200 [facility] Last Admin: 07/26/18 22:13 Dose: 1 each Oxycodone HCl (Roxicodone -) 5 mg PO Q4H PRN PRN Reason: PAIN LEVEL 7 - 10 Last Admin: 07/27/18 10:25 Dose: 5 mg Pantoprazole Sodium (Protonix -) 40 mg PO BID [facility] Last Admin: 07/27/18 10:19 Dose: 40 mg Quetiapine Fumarate (Seroquel -) 200 mg PO HS [facility] Last Admin: 07/26/18 21:31 Dose: 200 mg Sevelamer Carbonate (Renvela -) 800 mg PO TIDCM [facility] Last Admin: 07/27/18 11:45 Dose: Not Given Zolpidem Tartrate (Ambien -) 5 mg PO HS PRN PRN Reason: INSOMNIA - Objective Vital Signs: Vital Signs Temperature 98.1 F 07/27/18 10:00 Pulse Rate 80 07/27/18 10:00 Respiratory Rate 18 07/27/18 10:00 Blood Pressure 155/90 07/27/18 10:00 O2 Sat by Pulse Oximetry (%) 99 07/27/18 09:00 Constitutional: Yes: Calm Eyes: Yes: Conjunctiva Clear HENT: Yes: Atraumatic Cardiovascular: Yes: S1, S2 Respiratory: Yes: CTA Bilaterally Gastrointestinal: Yes: Soft, Other (dressing in place) Genitourinary: Yes: Incontinence Musculoskeletal: Yes: Muscle Weakness Edema: No Neurological: Yes: Oriented Psychiatric: Yes: Oriented Labs: CBC, BMP 07/26/18 10:55 07/26/18 14:25 INR, PTT INR 1.16 (0.83-1.09) H 07/21/18 19:45 Problem List - Problems (1) ESRD (end stage renal disease) Code(s): N18.6 - END STAGE RENAL DISEASE Assessment/Plan Current Medications Generic Name Dose Route Start Last Admin Trade Name Freq PRN Reason Stop Dose Admin Acetaminophen 650 mg 07/22/18 07:47 07/27/18 10:26 Tylenol - PO 650 mg Q4H PRN Administration PAIN Amitriptyline HCl 100 mg 07/22/18 10:00 07/27/18 10:19 Elavil - PO 100 mg DAILY [facility] Administration Amoxicillin/Clavulanate Potassium 1 tab 07/23/18 22:00 07/26/18 21:31 Augmentin - 875mg Tablet PO 1 tab HS [facility] Administration Aspirin 81 mg 07/22/18 10:00 07/27/18 11:45 Ecotrin - PO 81 mg DAILY [facility] Administration Atorvastatin Calcium 20 mg 07/22/18 22:00 07/26/18 21:31 Lipitor - PO 20 mg HS [facility] Administration Bacitracin 1 applic 07/25/18 22:00 07/27/18 10:20 Bacitracin - TP 1 applic BID [facility] Administration Calcium Acetate 1,334 mg 07/22/18 12:00 07/27/18 11:45 Phoslo - PO 1,334 mg TIDCM [facility] Administration Collagenase 1 applic 07/25/18 19:15 07/27/18 10:19 Santyl - TP 1 applic DAILY [facility] Administration Docusate Sodium 100 mg 07/22/18 10:00 07/27/18 10:19 Colace - PO 100 mg DAILY [facility] Administration Enoxaparin Sodium 30 mg 07/22/18 10:00 07/27/18 10:19 Lovenox - SQ 30 mg DAILY [facility] Administration Daptomycin 1,000 mg/ Sodium 50 mls @ 100 mls/hr 07/24/18 10:00 07/26/18 14:36 Chloride IVPB 100 mls/hr Q2D [facility] Administration Protocol Insulin Aspart 1 vial 07/22/18 11:00 07/27/18 11:45 Novolog Vial Sliding Scale - SQ Not Given ACHS [facility] Protocol Lidocaine 1 patch 07/26/18 10:00 07/27/18 10:19 Lidoderm Patch - TP 1 patch DAILY [facility] Administration Melatonin 5 mg 07/27/18 01:41 07/27/18 01:46 Melatonin PO 5 mg HS PRN Administration INSOMNIA Miscellaneous 1 each 07/26/18 22:00 07/26/18 22:13 Lidoderm Patch Removal MC 1 each DAILY@2200 [facility] Administration Oxycodone HCl 5 mg 07/23/18 09:05 07/27/18 10:25 Roxicodone - PO 5 mg Q4H PRN Administration PAIN LEVEL 7 - 10 Pantoprazole Sodium 40 mg 07/22/18 10:00 07/27/18 10:19 Protonix - PO 40 mg BID [facility] Administration Quetiapine Fumarate 200 mg 07/22/18 22:00 07/26/18 21:31 Seroquel - PO 200 mg HS [facility] Administration Sevelamer Carbonate 800 mg 07/22/18 08:00 07/27/18 11:45 Renvela - PO Not Given TIDCM [facility] Zolpidem Tartrate 5 mg 07/27/18 22:00 Ambien - PO HS PRN INSOMNIA Impression 1. ESRD 2. abdominal pain 3. sleep apnea 4. htn 5. dm 6. asthma 7. obesity 8. anxiety 9. hx of acute psychosis/delusions 10. hx hyperkalemia Plan - HD tomorrow - cont wound care - abx per ID - has HD set up at [facility] - mental status is back to baseline - will follow
--- NOTE | 2018-07-27 15:09 | PN ---
Progress Note (short form) - Note Progress Note: CBC, BMP 07/26/18 10:55 07/26/18 14:25 Vital Signs Period Temp Pulse Resp BP Sys/Chan Pulse Ox Last 24 Hr 97.8 F-98.1 F 80-98 18-18 130-155/80-100 99-99 s1s2 rrr lungs cta abd retention sutures with small area of opening, otherwise without sign of infection right arm open wound with packing-some slough present abd soft +BS no edema awake alert, mentation is at baseline moves all 4 extremities equally, no focal deficit denies complaints skin breakdown over gluteal folds ESRD recent open surgery removal of infected abdominal mesh recent bacteremia MRSA+ ~4 weeks ago morbid obesity resolving metabolic encephalopathy due to missed hd, and percocet overuse wound care bacitracin to gluteal area abx as oredered HD tu,brandi,sat PT patient is medically stable to discharge to [facility], however she is on daptomycin due to MRSA bacteremia on 06.26.19, and infected abdominal mesh and indwelling HD access catheter. Obtained records and reviewed records form [facility], recomendation was that she should be treated for 6 weeks, at least until 08.07.18 by my calculations. We have been unable to find STR facilities who are willing to accommodate daptomycin use due to its course. Will obtain ID input to see if we could switch her to iv Vanco instead.
[2018-07-27] MEDS: AMOX TR/POT CLAV 875MG/125MG TABLETS (FP) PO SCH (21:17)
[2018-07-27] MEDS: ATORVASTATIN CA 20 MG TABLET (FP) PO SCH (21:18)
[2018-07-27] MEDS: LIDOCAINE PATCH REMOVAL MC SCH (21:19)
[2018-07-27] MEDS: QUEtiapine FUMARATE 200 MG TABLET PO SCH (21:19)
[2018-07-28] MEDS: INSULIN SLIDING SCALE (NOVOLOG) 1 VIAL SQ SCH ×4 (06:09→22:43)
--- NOTE | 2018-07-28 08:13 | PN ---
Progress Note (short form) - Note Progress Note: CBC, BMP 07/26/18 10:55 07/26/18 14:25 Vital Signs Period Temp Pulse Resp BP Sys/Chan Pulse Ox Last 24 Hr 97.4 F-98.1 F 76-87 18-20 140-155/90-93 97-99 s1s2 rrr lungs cta abd retention sutures with small area of opening, otherwise without sign of infection right arm open wound with packing-minimal slough present abd soft +BS no edema awake alert, mentation is at baseline moves all 4 extremities equally, no focal deficit denies complaints skin breakdown over gluteal folds ESRD recent open surgery removal of infected abdominal mesh recent bacteremia MRSA+ ~4 weeks ago morbid obesity resolving metabolic encephalopathy due to missed hd, and percocet overuse wound care bacitracin to gluteal area abx as oredered HD tu,brandi,sat PT patient is medically stable to discharge to [facility], however she is on daptomycin due to MRSA bacteremia on 06.26.19, and infected abdominal mesh and indwelling HD access catheter. Obtained records and reviewed records form [facility], recomendation was that she should be treated for 6 weeks, at least until 08.07.18 by my calculations. We have been unable to find STR facilities who are willing to accommodate daptomycin use due to its course. Will obtain ID input to see if we could switch her to iv Vanco instead.
[2018-07-28] MEDS: ACETAMINOPHEN 325 MG TABLET (FP) PO PRN ×3 (08:42→22:44)
[2018-07-28] MEDS: oxyCODONE HCL 5 MG TABLET PO PRN ×3 (08:42→22:44)
[2018-07-28] MEDS: CALCIUM ACETATE 667 MG CAPSULE (FP) PO SCH ×3 (08:43→16:31)
[2018-07-28] MEDS: SEVELAMER CARBONATE 800 MG TAB (FP) PO SCH ×3 (08:43→18:52)
[2018-07-28] MEDS: PANTOPRAZOLE 40 MG TABLET (FP) PO SCH ×2 (11:27→22:44)
[2018-07-28] MEDS: ASPIRIN COATED 81 MG TABLET.EC PO SCH (11:27)
[2018-07-28] MEDS: ENOXAPARIN NA (PORCINE) 30 MG/0.3 ML DISP.SYRIN SQ SCH (11:27)
[2018-07-28] MEDS: DOCUSATE SODIUM 100 MG CAPSULE (FP) PO SCH (11:27)
[2018-07-28] MEDS: AMITRIPTYLINE HCL 25 MG TABLET (FP) PO SCH (11:27)
[2018-07-28] MEDS: LIDOCAINE 5% TOPICAL PATCH TP SCH (11:28)
[2018-07-28] MEDS: BACITRACIN 15 GM TUBE TOPICAL OINTMENT TP SCH ×2 (11:51→22:44)
[2018-07-28] MEDS ORDERED: HEPARIN NA (PORCINE) 5,000 UNITS/ML 1ML VIAL IVPUSH ONE (12:15)
[2018-07-28] MEDS ORDERED: EPOETIN ALFA 10,000 UNIT/1 ML VIAL IVPUSH ONE ×2 (12:15→14:26)
[2018-07-28 12:41] LABS: HEMATOCRIT 29.4 % (32.4-45.2); HEMOGLOBIN 9.4 GM/dL (10.7-15.3); MCH 29.9 pg (25.7-33.7); MCHC 32.1 g/dl (32.0-36.0); MEAN CELL VOLUME 93.3 fl (80-96); MEAN PLT VOLUME 9.2 fl (7.5-11.1); PLATELET COUNT 112 K/MM3 (134-434); RBC 3.15 M/mm3 (3.60-5.2); RDW 17.9 % (11.6-15.6); WHITE BLOOD COUNT 4.9 K/mm3 (4.0-10.0)
[2018-07-28 12:51] LABS: ANION GAP 8 MMOL/L (8-16); BLOOD UREA NITROGEN 34 mg/dL (7-18); CALCIUM 8.7 mg/dL (8.5-10.1); CHLORIDE 98 mmol/L (98-107); CO2 29 mmol/L (21-32); CREATININE 7.2 mg/dL (0.55-1.3); GLUCOSE,RANDOM 84 mg/dL (74-106); PHOSPHOROUS 3.2 mg/dL (2.5-4.9); POTASSIUM 4.2 mmol/L (3.5-5.1); SODIUM 135 mmol/L (136-145)
--- NOTE | 2018-07-28 14:13 | PN ---
Progress Note, Physician History of Present Illness: Pt seen and examined at bedside. She is awake and alert. She is tolerating HD. - Current Medication List Current Medications: Active Medications Acetaminophen (Tylenol -) 650 mg PO Q4H PRN PRN Reason: PAIN Last Admin: 07/28/18 08:42 Dose: 650 mg Amitriptyline HCl (Elavil -) 100 mg PO DAILY [facility] Last Admin: 07/28/18 11:27 Dose: 100 mg Amoxicillin/Clavulanate Potassium (Augmentin - 875mg Tablet) 1 tab PO HS [facility] Last Admin: 07/27/18 21:17 Dose: 1 tab Aspirin (Ecotrin -) 81 mg PO DAILY [facility] Last Admin: 07/28/18 11:27 Dose: 81 mg Atorvastatin Calcium (Lipitor -) 20 mg PO HS [facility] Last Admin: 07/27/18 21:18 Dose: 20 mg Bacitracin (Bacitracin -) 1 applic TP BID [facility] Last Admin: 07/27/18 21:19 Dose: 1 applic Calcium Acetate (Phoslo -) 1,334 mg PO TIDCM [facility] Last Admin: 07/28/18 08:43 Dose: 1,334 mg Collagenase (Santyl -) 1 applic TP DAILY [facility] Last Admin: 07/27/18 10:19 Dose: 1 applic Docusate Sodium (Colace -) 100 mg PO DAILY [facility] Last Admin: 07/28/18 11:27 Dose: 100 mg Enoxaparin Sodium (Lovenox -) 30 mg SQ DAILY [facility] Last Admin: 07/28/18 11:27 Dose: 30 mg Daptomycin 1,000 mg/ Sodium (Chloride) 50 mls @ 100 mls/hr IVPB Q2D [facility]; Protocol Last Admin: 07/26/18 14:36 Dose: 100 mls/hr Insulin Aspart (Novolog Vial Sliding Scale -) 1 vial SQ ACHS [facility]; Protocol Last Admin: 07/28/18 06:09 Dose: Not Given Lidocaine (Lidoderm Patch -) 1 patch TP DAILY [facility] Last Admin: 07/28/18 11:28 Dose: 1 patch Melatonin (Melatonin) 5 mg PO HS PRN PRN Reason: INSOMNIA Last Admin: 07/27/18 21:17 Dose: 5 mg Miscellaneous (Lidoderm Patch Removal) 1 each MC DAILY@2200 [facility] Last Admin: 07/27/18 21:19 Dose: 1 each Oxycodone HCl (Roxicodone -) 5 mg PO Q4H PRN PRN Reason: PAIN LEVEL 7 - 10 Last Admin: 07/28/18 08:42 Dose: 5 mg Pantoprazole Sodium (Protonix -) 40 mg PO BID [facility] Last Admin: 07/28/18 11:27 Dose: 40 mg Polyethylene Glycol (Miralax (For Daily Use) -) 17 gm PO DAILY [facility] Quetiapine Fumarate (Seroquel -) 200 mg PO HS [facility] Last Admin: 07/27/18 21:19 Dose: 200 mg Sevelamer Carbonate (Renvela -) 800 mg PO TIDCM [facility] Last Admin: 07/28/18 08:43 Dose: Not Given Zolpidem Tartrate (Ambien -) 5 mg PO HS PRN PRN Reason: INSOMNIA - Objective Vital Signs: Vital Signs Temperature 98.8 F 07/28/18 11:55 Pulse Rate 84 07/28/18 14:00 Respiratory Rate 18 07/28/18 14:00 Blood Pressure 141/87 07/28/18 14:00 O2 Sat by Pulse Oximetry (%) 97 07/28/18 09:00 Constitutional: Yes: Calm Eyes: Yes: Conjunctiva Clear HENT: Yes: Atraumatic Cardiovascular: Yes: S1, S2 Respiratory: Yes: CTA Bilaterally Gastrointestinal: Yes: Soft, Other (dressing in place) Genitourinary: Yes: Incontinence Musculoskeletal: Yes: WNL Integumentary: Yes: Tattoos Neurological: Yes: Oriented Psychiatric: Yes: Oriented Labs: CBC, BMP 07/28/18 12:00 07/28/18 12:11 INR, PTT INR 1.16 (0.83-1.09) H 07/21/18 19:45 Problem List - Problems (1) ESRD (end stage renal disease) Code(s): N18.6 - END STAGE RENAL DISEASE Assessment/Plan Current Medications Generic Name Dose Route Start Last Admin Trade Name Freq PRN Reason Stop Dose Admin Acetaminophen 650 mg 07/22/18 07:47 07/28/18 08:42 Tylenol - PO 650 mg Q4H PRN Administration PAIN Amitriptyline HCl 100 mg 07/22/18 10:00 07/28/18 11:27 Elavil - PO 100 mg DAILY [facility] Administration Amoxicillin/Clavulanate Potassium 1 tab 07/23/18 22:00 07/27/18 21:17 Augmentin - 875mg Tablet PO 1 tab HS [facility] Administration Aspirin 81 mg 07/22/18 10:00 07/28/18 11:27 Ecotrin - PO 81 mg DAILY [facility] Administration Atorvastatin Calcium 20 mg 07/22/18 22:00 07/27/18 21:18 Lipitor - PO 20 mg HS [facility] Administration Bacitracin 1 applic 07/25/18 22:00 07/27/18 21:19 Bacitracin - TP 1 applic BID [facility] Administration Calcium Acetate 1,334 mg 07/22/18 12:00 07/28/18 08:43 Phoslo - PO 1,334 mg TIDCM [facility] Administration Collagenase 1 applic 07/25/18 19:15 07/27/18 10:19 Santyl - TP 1 applic DAILY [facility] Administration Docusate Sodium 100 mg 07/22/18 10:00 07/28/18 11:27 Colace - PO 100 mg DAILY [facility] Administration Enoxaparin Sodium 30 mg 07/22/18 10:00 07/28/18 11:27 Lovenox - SQ 30 mg DAILY [facility] Administration Daptomycin 1,000 mg/ Sodium 50 mls @ 100 mls/hr 07/24/18 10:00 07/26/18 14:36 Chloride IVPB 100 mls/hr Q2D [facility] Administration Protocol Insulin Aspart 1 vial 07/22/18 11:00 07/28/18 06:09 Novolog Vial Sliding Scale - SQ Not Given ACHS [facility] Protocol Lidocaine 1 patch 07/26/18 10:00 07/28/18 11:28 Lidoderm Patch - TP 1 patch DAILY [facility] Administration Melatonin 5 mg 07/27/18 01:41 07/27/18 21:17 Melatonin PO 5 mg HS PRN Administration INSOMNIA Miscellaneous 1 each 07/26/18 22:00 07/27/18 21:19 Lidoderm Patch Removal MC 1 each DAILY@2200 [facility] Administration Oxycodone HCl 5 mg 07/23/18 09:05 07/28/18 08:42 Roxicodone - PO 5 mg Q4H PRN Administration PAIN LEVEL 7 - 10 Pantoprazole Sodium 40 mg 07/22/18 10:00 07/28/18 11:27 Protonix - PO 40 mg BID [facility] Administration Polyethylene Glycol 17 gm 07/28/18 10:00 Miralax (For Daily Use) - PO DAILY [facility] Quetiapine Fumarate 200 mg 07/22/18 22:00 07/27/18 21:19 Seroquel - PO 200 mg HS [facility] Administration Sevelamer Carbonate 800 mg 07/22/18 08:00 07/28/18 08:43 Renvela - PO Not Given TIDCM [facility] Zolpidem Tartrate 5 mg 07/27/18 22:00 Ambien - PO HS PRN INSOMNIA Impression 1. ESRD 2. abdominal pain 3. sleep apnea 4. htn 5. dm 6. asthma 7. obesity 8. anxiety 9. hx of acute psychosis/delusions 10. hx hyperkalemia Plan - HD today - abx per ID - renal diet - epogen for anemia - hg stable, cont to monitor - has HD set up at [facility] - mental status is back to baseline - will follow
[2018-07-28] MEDS: DAPTOMYCIN 1,000 MG in SODIUM CHLORIDE 50 ML IVPB SCH (15:08)
[2018-07-28] MEDS: POLYETHYLENE GLYCOL 3350 119 GM BTL PO SCH (20:12)
[2018-07-28] MEDS: COLLAGENASE CLOSTRIDIUM HIST. 30 GRAMS TUBE TP SCH (20:12)
[2018-07-28] MEDS ORDERED: INSULIN (NOVOLOG) ASPART 100 UNITS/ML 10ML VIAL ONE (21:36)
[2018-07-28] MEDS: ZOLPIDEM TARTRATE 5 MG TABLET PO PRN (22:43)
[2018-07-28] MEDS: AMOX TR/POT CLAV 875MG/125MG TABLETS (FP) PO SCH (22:44)
[2018-07-28] MEDS: ATORVASTATIN CA 20 MG TABLET (FP) PO SCH (22:44)
[2018-07-28] MEDS: QUEtiapine FUMARATE 200 MG TABLET PO SCH (22:44)
[2018-07-28] MEDS: LIDOCAINE PATCH REMOVAL MC SCH (23:27)
[2018-07-29] MEDS: MELATONIN 5 MG TABLETS PO PRN ×2 (00:50→22:04)
[2018-07-29] MEDS: INSULIN SLIDING SCALE (NOVOLOG) 1 VIAL SQ SCH ×4 (06:37→22:00)
[2018-07-29] MEDS: oxyCODONE HCL 5 MG TABLET PO PRN ×5 (07:47→22:04)
[2018-07-29] MEDS: ACETAMINOPHEN 325 MG TABLET (FP) PO PRN ×3 (07:48→22:04)
--- NOTE | 2018-07-29 09:32 | PN ---
Physical Exam: SUBJECTIVE: Patient seen and examined she has no c/o she had hd yesterday OBJECTIVE: Vital Signs Period Temp Pulse Resp BP Sys/Chan Pulse Ox Last 24 Hr 97.7 F-98.8 F 68-90 18-20 119-148/72-95 97 GENERAL: The patient is awake, alert, and fully oriented, in no acute distress. HEAD: Normal with no signs of trauma. EYES: PERRL, extraocular movements intact, sclera anicteric, conjunctiva clear. No ptosis. ENT: Ears normal, nares patent, oropharynx clear without exudates, moist mucous membranes. NECK: Trachea midline, full range of motion, supple. LUNGS: Breath sounds equal, clear to auscultation bilaterally, no wheezes, no crackles, no accessory muscle use. HEART: Regular rate and rhythm, S1, S2 without murmur, rub or gallop. ABDOMEN: Soft, nontender, dressing in place rebound, no hepatosplenomegaly, no masses. EXTREMITIES: 2+ pulses, warm, well-perfused, no edema. NEUROLOGICAL: Cranial nerves II through XII grossly intact. Normal speech, gait not observed. PSYCH: Normal mood, normal affect. SKIN: Warm, dry, normal turgor, no rashes or lesions noted Laboratory Results - last 24 hr 07/28/18 07/28/18 07/28/18 12:00 12:11 16:34 WBC 4.9 RBC 3.15 L Hgb 9.4 L Hct 29.4 L MCV 93.3 MCH 29.9 MCHC 32.1 RDW 17.9 H Plt Count 112 L D MPV 9.2 Sodium 135 L Potassium 4.2 Chloride 98 Carbon Dioxide 29 Anion Gap 8 BUN 34 H Creatinine 7.2 H Creat Clearance w eGFR 5.97 POC Glucometer 74 Random Glucose 84 Calcium 8.7 Phosphorus 3.2 07/28/18 22:39 WBC RBC Hgb Hct MCV MCH MCHC RDW Plt Count MPV Sodium Potassium Chloride Carbon Dioxide Anion Gap BUN Creatinine Creat Clearance w eGFR POC Glucometer 78 Random Glucose Calcium Phosphorus Active Medications Generic Name Dose Route Start Last Admin Trade Name Freq PRN Reason Stop Dose Admin Acetaminophen 650 mg 07/22/18 07:47 07/29/18 07:48 Tylenol - PO 650 mg Q4H PRN Administration PAIN Amitriptyline HCl 100 mg 07/22/18 10:00 07/28/18 11:27 Elavil - PO 100 mg DAILY [facility]ID Administration Amoxicillin/Clavulanate Potassium 1 tab 07/23/18 22:00 07/28/18 22:44 Augmentin - 875mg Tablet PO 1 tab HS DAVID Administration Aspirin 81 mg 07/22/18 10:00 07/28/18 11:27 Ecotrin - PO 81 mg DAILY [facility] Administration Atorvastatin Calcium 20 mg 07/22/18 22:00 07/28/18 22:44 Lipitor - PO 20 mg HS DAVID Administration Bacitracin 1 applic 07/25/18 22:00 07/28/18 22:44 Bacitracin - TP 1 applic BID [facility]ID Administration Calcium Acetate 1,334 mg 07/22/18 12:00 07/28/18 16:31 Phoslo - PO 1,334 mg TIDCM DAVID Administration Collagenase 1 applic 07/25/18 19:15 07/28/18 20:12 Santyl - TP Not Given DAILY DAVID Docusate Sodium 100 mg 07/22/18 10:00 07/28/18 11:27 Colace - PO 100 mg DAILY [facility] Administration Enoxaparin Sodium 30 mg 07/22/18 10:00 07/28/18 11:27 Lovenox - SQ 30 mg DAILY [facility] Administration Daptomycin 1,000 mg/ Sodium 50 mls @ 100 mls/hr 07/24/18 10:00 07/28/18 15:08 Chloride IVPB 100 mls/hr Q2D DAVID Administration Protocol Insulin Aspart 1 vial 07/22/18 11:00 07/29/18 06:37 Novolog Vial Sliding Scale - SQ Not Given ACHS [facility] Protocol Lidocaine 1 patch 07/26/18 10:00 07/28/18 11:28 Lidoderm Patch - TP 1 patch DAILY [facility] Administration Melatonin 5 mg 07/27/18 01:41 07/29/18 00:50 Melatonin PO 5 mg HS PRN Administration INSOMNIA Miscellaneous 1 each 07/26/18 22:00 07/28/18 23:27 Lidoderm Patch Removal MC 1 each DAILY@2200 [facility]ID Administration Oxycodone HCl 5 mg 07/23/18 09:05 07/29/18 07:47 Roxicodone - PO 5 mg Q4H PRN Administration PAIN LEVEL 7 - 10 Pantoprazole Sodium 40 mg 07/22/18 10:00 07/28/18 22:44 Protonix - PO 40 mg BID DAVID Administration Polyethylene Glycol 17 gm 07/28/18 10:00 07/28/18 20:12 Miralax (For Daily Use) - PO Not Given DAILY DAVID Quetiapine Fumarate 200 mg 07/22/18 22:00 07/28/18 22:44 Seroquel - PO 200 mg HS [facility]ID Administration Sevelamer Carbonate 800 mg 07/22/18 08:00 07/28/18 18:52 Renvela - PO Not Given TIDCM DAVID Zolpidem Tartrate 5 mg 07/27/18 22:00 07/28/18 22:43 Ambien - PO 5 mg HS PRN Administration INSOMNIA ASSESSMENT/PLAN: ESRD recent open surgery removal of infected abdominal mesh recent bacteremia MRSA+ ~4 weeks ago morbid obesity resolving metabolic encephalopathy due to missed hd, and percocet overuse wound care bacitracin to gluteal area abx as oredered HD tu,brandi,sat PT patient is medically stable to discharge to [facility], however she is on daptomycin due to MRSA bacteremia on 06.26.19, and infected abdominal mesh and indwelling HD access catheter.
[2018-07-29] MEDS: SEVELAMER CARBONATE 800 MG TAB (FP) PO SCH ×3 (11:04→17:11)
[2018-07-29] MEDS: CALCIUM ACETATE 667 MG CAPSULE (FP) PO SCH ×3 (11:04→17:20)
[2018-07-29] MEDS: LIDOCAINE 5% TOPICAL PATCH TP SCH (11:15)
[2018-07-29] MEDS: AMITRIPTYLINE HCL 25 MG TABLET (FP) PO SCH (11:16)
[2018-07-29] MEDS: COLLAGENASE CLOSTRIDIUM HIST. 30 GRAMS TUBE TP SCH (11:17)
[2018-07-29] MEDS: DOCUSATE SODIUM 100 MG CAPSULE (FP) PO SCH (11:17)
[2018-07-29] MEDS: PANTOPRAZOLE 40 MG TABLET (FP) PO SCH ×2 (11:17→22:04)
[2018-07-29] MEDS: BACITRACIN 15 GM TUBE TOPICAL OINTMENT TP SCH ×2 (11:17→22:05)
[2018-07-29] MEDS: ENOXAPARIN NA (PORCINE) 30 MG/0.3 ML DISP.SYRIN SQ SCH (11:17)
[2018-07-29] MEDS: ASPIRIN COATED 81 MG TABLET.EC PO SCH (11:17)
--- NOTE | 2018-07-29 17:12 | PN ---
Progress Note, Physician History of Present Illness: Pt seen and examined at bedside. She is awake and alert. She has no complaints today. - Current Medication List Current Medications: Active Medications Acetaminophen (Tylenol -) 650 mg PO Q4H PRN PRN Reason: PAIN 1-3 Last Admin: 07/29/18 12:08 Dose: 650 mg Amitriptyline HCl (Elavil -) 100 mg PO DAILY [facility] Last Admin: 07/29/18 11:16 Dose: 100 mg Amoxicillin/Clavulanate Potassium (Augmentin - 875mg Tablet) 1 tab PO HS [facility] Last Admin: 07/28/18 22:44 Dose: 1 tab Aspirin (Ecotrin -) 81 mg PO DAILY [facility] Last Admin: 07/29/18 11:17 Dose: 81 mg Atorvastatin Calcium (Lipitor -) 20 mg PO HS [facility] Last Admin: 07/28/18 22:44 Dose: 20 mg Bacitracin (Bacitracin -) 1 applic TP BID [facility] Last Admin: 07/29/18 11:17 Dose: 1 applic Calcium Acetate (Phoslo -) 1,334 mg PO TIDCM [facility] Last Admin: 07/29/18 12:09 Dose: 1,334 mg Collagenase (Santyl -) 1 applic TP DAILY [facility] Docusate Sodium (Colace -) 100 mg PO DAILY [facility] Last Admin: 07/29/18 11:17 Dose: 100 mg Enoxaparin Sodium (Lovenox -) 30 mg SQ DAILY [facility] Last Admin: 07/29/18 11:17 Dose: 30 mg Daptomycin 1,000 mg/ Sodium (Chloride) 50 mls @ 100 mls/hr IVPB Q2D [facility]; Protocol Last Admin: 07/28/18 15:08 Dose: 100 mls/hr Insulin Aspart (Novolog Vial Sliding Scale -) 1 vial SQ ACHS [facility]; Protocol Last Admin: 07/29/18 11:22 Dose: Not Given Lidocaine (Lidoderm Patch -) 1 patch TP DAILY [facility] Last Admin: 07/29/18 11:15 Dose: 1 patch Melatonin (Melatonin) 5 mg PO HS PRN PRN Reason: INSOMNIA Last Admin: 07/29/18 00:50 Dose: 5 mg Miscellaneous (Lidoderm Patch Removal) 1 each MC DAILY@2200 [facility] Last Admin: 07/28/18 23:27 Dose: 1 each Oxycodone HCl (Roxicodone -) 10 mg PO Q4H PRN PRN Reason: PAIN LEVEL 7 - 10 Last Admin: 07/29/18 13:27 Dose: 10 mg Pantoprazole Sodium (Protonix -) 40 mg PO BID [facility] Last Admin: 07/29/18 11:17 Dose: 40 mg Polyethylene Glycol (Miralax (For Daily Use) -) 17 gm PO DAILY [facility] Last Admin: 07/28/18 20:12 Dose: Not Given Quetiapine Fumarate (Seroquel -) 200 mg PO HS [facility] Last Admin: 07/28/18 22:44 Dose: 200 mg Sevelamer Carbonate (Renvela -) 800 mg PO TIDCM [facility] Last Admin: 07/29/18 12:19 Dose: Not Given Zolpidem Tartrate (Ambien -) 5 mg PO HS PRN PRN Reason: INSOMNIA Last Admin: 07/28/18 22:43 Dose: 5 mg - Objective Vital Signs: Vital Signs Temperature 98.6 F 07/29/18 15:10 Pulse Rate 83 07/29/18 15:10 Respiratory Rate 20 07/29/18 15:10 Blood Pressure 143/81 07/29/18 15:10 O2 Sat by Pulse Oximetry (%) 97 07/28/18 21:00 Constitutional: Yes: Calm Eyes: Yes: Conjunctiva Clear HENT: Yes: Atraumatic Cardiovascular: Yes: S1, S2 Respiratory: Yes: CTA Bilaterally Gastrointestinal: Yes: Soft, Other (dressing in place) Genitourinary: Yes: Incontinence Edema: No Integumentary: Yes: Tattoos Neurological: Yes: Oriented Psychiatric: Yes: Oriented Labs: CBC, BMP 07/28/18 12:00 07/28/18 12:11 INR, PTT INR 1.16 (0.83-1.09) H 07/21/18 19:45 Problem List - Problems (1) ESRD (end stage renal disease) Code(s): N18.6 - END STAGE RENAL DISEASE Assessment/Plan Current Medications Generic Name Dose Route Start Last Admin Trade Name Freq PRN Reason Stop Dose Admin Acetaminophen 650 mg 07/22/18 07:47 07/29/18 12:08 Tylenol - PO 650 mg Q4H PRN Administration PAIN 1-3 Amitriptyline HCl 100 mg 07/22/18 10:00 07/29/18 11:16 Elavil - PO 100 mg DAILY [facility]ID Administration Amoxicillin/Clavulanate Potassium 1 tab 07/23/18 22:00 07/28/18 22:44 Augmentin - 875mg Tablet PO 1 tab HS [facility] Administration Aspirin 81 mg 07/22/18 10:00 07/29/18 11:17 Ecotrin - PO 81 mg DAILY [facility] Administration Atorvastatin Calcium 20 mg 07/22/18 22:00 07/28/18 22:44 Lipitor - PO 20 mg HS [facility] Administration Bacitracin 1 applic 07/25/18 22:00 07/29/18 11:17 Bacitracin - TP 1 applic BID [facility] Administration Calcium Acetate 1,334 mg 07/22/18 12:00 07/29/18 12:09 Phoslo - PO 1,334 mg TIDCM [facility]ID Administration Collagenase 1 applic 07/29/18 16:10 Santyl - TP DAILY [facility] Docusate Sodium 100 mg 07/22/18 10:00 07/29/18 11:17 Colace - PO 100 mg DAILY [facility] Administration Enoxaparin Sodium 30 mg 07/22/18 10:00 07/29/18 11:17 Lovenox - SQ 30 mg DAILY [facility] Administration Daptomycin 1,000 mg/ Sodium 50 mls @ 100 mls/hr 07/24/18 10:00 07/28/18 15:08 Chloride IVPB 100 mls/hr Q2D [facility]ID Administration Protocol Insulin Aspart 1 vial 07/22/18 11:00 07/29/18 11:22 Novolog Vial Sliding Scale - SQ Not Given ACHS [facility] Protocol Lidocaine 1 patch 07/26/18 10:00 07/29/18 11:15 Lidoderm Patch - TP 1 patch DAILY [facility] Administration Melatonin 5 mg 07/27/18 01:41 07/29/18 00:50 Melatonin PO 5 mg HS PRN Administration INSOMNIA Miscellaneous 1 each 07/26/18 22:00 07/28/18 23:27 Lidoderm Patch Removal MC 1 each DAILY@2200 [facility] Administration Oxycodone HCl 10 mg 07/29/18 12:49 07/29/18 13:27 Roxicodone - PO 10 mg Q4H PRN Administration PAIN LEVEL 7 - 10 Pantoprazole Sodium 40 mg 07/22/18 10:00 07/29/18 11:17 Protonix - PO 40 mg BID DAVID Administration Polyethylene Glycol 17 gm 07/28/18 10:00 07/28/18 20:12 Miralax (For Daily Use) - PO Not Given DAILY [facility]ID Quetiapine Fumarate 200 mg 07/22/18 22:00 07/28/18 22:44 Seroquel - PO 200 mg HS [facility]ID Administration Sevelamer Carbonate 800 mg 07/22/18 08:00 07/29/18 12:19 Renvela - PO Not Given TIDCM [facility] Zolpidem Tartrate 5 mg 07/27/18 22:00 07/28/18 22:43 Ambien - PO 5 mg HS PRN Administration INSOMNIA Impression 1. ESRD 2. abdominal pain 3. sleep apnea 4. htn 5. dm 6. asthma 7. obesity 8. anxiety 9. hx of acute psychosis/delusions 10. hx hyperkalemia Plan - next HD on Monday - hd is set up as outpt - abx per ID - renal diet - will follow
[2018-07-29] MEDS: POLYETHYLENE GLYCOL 3350 119 GM BTL PO SCH (17:20)
[2018-07-29] MEDS: QUEtiapine FUMARATE 200 MG TABLET PO SCH (22:04)
[2018-07-29] MEDS: ATORVASTATIN CA 20 MG TABLET (FP) PO SCH (22:04)
[2018-07-29] MEDS: ZOLPIDEM TARTRATE 5 MG TABLET PO PRN (22:04)
[2018-07-29] MEDS: AMOX TR/POT CLAV 875MG/125MG TABLETS (FP) PO SCH (22:04)
[2018-07-29] MEDS: LIDOCAINE PATCH REMOVAL MC SCH (22:05)
[2018-07-30] MEDS: INSULIN SLIDING SCALE (NOVOLOG) 1 VIAL SQ SCH ×4 (06:24→22:52)
[2018-07-30] MEDS: ACETAMINOPHEN 325 MG TABLET (FP) PO PRN ×3 (06:29→18:54)
[2018-07-30] MEDS: oxyCODONE HCL 5 MG TABLET PO PRN ×4 (06:29→22:46)
[2018-07-30] MEDS: SEVELAMER CARBONATE 800 MG TAB (FP) PO SCH ×3 (07:43→16:32)
[2018-07-30] MEDS: CALCIUM ACETATE 667 MG CAPSULE (FP) PO SCH ×3 (07:43→17:19)
--- NOTE | 2018-07-30 08:59 | PN ---
Progress Note (short form) - Note Progress Note: no change, has been stable Vital Signs Period Temp Pulse Resp BP Sys/Chan Pulse Ox Last 24 Hr 98.1 F-98.6 F 79-83 20-20 139-143/80-84 97 s1s2 rrr lungs cta abd retention sutures with small area of opening, otherwise without sign of infection right arm open wound with packing-minimal slough present abd soft +BS no edema awake alert, mentation is at baseline moves all 4 extremities equally, no focal deficit denies complaints skin breakdown over gluteal folds ESRD recent open surgery removal of infected abdominal mesh recent bacteremia MRSA+ 1 month ago morbid obesity resolved metabolic encephalopathy due to missed hd, and percocet overuse wound care bacitracin to gluteal area abx as oredered HD tu,brandi,sat PT patient is medically stable to discharge to [facility], however she is on daptomycin due to MRSA bacteremia on 06.26.19, and infected abdominal mesh and indwelling HD access catheter. Obtained records and reviewed records form [facility], recomendation was that she should be treated for 6 weeks, at least until 08.07.18 by my calculations. We have been unable to find STR facilities who are willing to accommodate daptomycin use due to its course. Will obtain ID input to see if we could switch her to iv Vanco instead.
[2018-07-30] MEDS: AMITRIPTYLINE HCL 25 MG TABLET (FP) PO SCH (09:56)
[2018-07-30] MEDS: ENOXAPARIN NA (PORCINE) 30 MG/0.3 ML DISP.SYRIN SQ SCH (09:56)
[2018-07-30] MEDS: LIDOCAINE 5% TOPICAL PATCH TP SCH (09:56)
[2018-07-30] MEDS: PANTOPRAZOLE 40 MG TABLET (FP) PO SCH ×2 (09:56→22:48)
[2018-07-30] MEDS: POLYETHYLENE GLYCOL 3350 119 GM BTL PO SCH (09:56)
[2018-07-30] MEDS: ASPIRIN COATED 81 MG TABLET.EC PO SCH (09:56)
[2018-07-30] MEDS: DOCUSATE SODIUM 100 MG CAPSULE (FP) PO SCH (09:56)
[2018-07-30] MEDS: BACITRACIN 15 GM TUBE TOPICAL OINTMENT TP SCH ×2 (09:57→22:48)
[2018-07-30] MEDS: COLLAGENASE CLOSTRIDIUM HIST. 30 GRAMS TUBE TP SCH (09:57)
[2018-07-30] MEDS ORDERED: SODIUM CHLORIDE 250 ML IV PRN (11:13)
--- NOTE | 2018-07-30 16:19 | PN ---
Progress Note, Physician History of Present Illness: Pt seen and examined at bedside. She is awake and alert. She is eager to go home. She denies fevers or chills. - Current Medication List Current Medications: Active Medications Acetaminophen (Tylenol -) 650 mg PO Q4H PRN PRN Reason: PAIN 1-3 Last Admin: 07/30/18 10:32 Dose: 650 mg Amitriptyline HCl (Elavil -) 100 mg PO DAILY [facility] Last Admin: 07/30/18 09:56 Dose: 100 mg Amoxicillin/Clavulanate Potassium (Augmentin - 875mg Tablet) 1 tab PO HS [facility] Last Admin: 07/29/18 22:04 Dose: 1 tab Aspirin (Ecotrin -) 81 mg PO DAILY [facility] Last Admin: 07/30/18 09:56 Dose: 81 mg Atorvastatin Calcium (Lipitor -) 20 mg PO HS [facility] Last Admin: 07/29/18 22:04 Dose: 20 mg Bacitracin (Bacitracin -) 1 applic TP BID [facility] Last Admin: 07/30/18 09:57 Dose: 1 applic Calcium Acetate (Phoslo -) 1,334 mg PO TIDCM [facility] Last Admin: 07/30/18 11:18 Dose: 1,334 mg Collagenase (Santyl -) 1 applic TP DAILY [facility] Last Admin: 07/30/18 09:57 Dose: 1 applic Docusate Sodium (Colace -) 100 mg PO DAILY [facility] Last Admin: 07/30/18 09:56 Dose: 100 mg Enoxaparin Sodium (Lovenox -) 30 mg SQ DAILY [facility] Last Admin: 07/30/18 09:56 Dose: 30 mg Daptomycin 1,000 mg/ Sodium (Chloride) 50 mls @ 100 mls/hr IVPB TuTa [facility]; Protocol Insulin Aspart (Novolog Vial Sliding Scale -) 1 vial SQ ACHS [facility]; Protocol Last Admin: 07/30/18 11:18 Dose: Not Given Lidocaine (Lidoderm Patch -) 1 patch TP DAILY [facility] Last Admin: 07/30/18 09:56 Dose: 1 patch Melatonin (Melatonin) 5 mg PO HS PRN PRN Reason: INSOMNIA Last Admin: 07/29/18 22:04 Dose: 5 mg Miscellaneous (Lidoderm Patch Removal) 1 each MC DAILY@2200 [facility] Last Admin: 07/29/18 22:05 Dose: 1 each Oxycodone HCl (Roxicodone -) 10 mg PO Q4H PRN PRN Reason: PAIN LEVEL 7 - 10 Last Admin: 07/30/18 10:33 Dose: 10 mg Pantoprazole Sodium (Protonix -) 40 mg PO BID [facility] Last Admin: 07/30/18 09:56 Dose: 40 mg Polyethylene Glycol (Miralax (For Daily Use) -) 17 gm PO DAILY [facility] Last Admin: 07/30/18 09:56 Dose: 17 gm Quetiapine Fumarate (Seroquel -) 200 mg PO HS [facility] Last Admin: 07/29/18 22:04 Dose: 200 mg Sevelamer Carbonate (Renvela -) 800 mg PO TIDCM [facility] Last Admin: 07/30/18 11:18 Dose: Not Given Zolpidem Tartrate (Ambien -) 5 mg PO HS PRN PRN Reason: INSOMNIA Last Admin: 07/29/18 22:04 Dose: 5 mg - Objective Vital Signs: Vital Signs Temperature 98 F 07/30/18 13:53 Pulse Rate 84 07/30/18 13:53 Respiratory Rate 20 07/30/18 13:53 Blood Pressure 150/86 07/30/18 13:53 O2 Sat by Pulse Oximetry (%) 98 07/30/18 09:00 Constitutional: Yes: Calm Eyes: Yes: Conjunctiva Clear HENT: Yes: Atraumatic Neck: Yes: Supple Cardiovascular: Yes: S1, S2 Respiratory: Yes: CTA Bilaterally Gastrointestinal: Yes: Soft, Other (dressing in place) Genitourinary: Yes: WNL Musculoskeletal: Yes: Muscle Weakness Edema: No Neurological: Yes: Oriented Psychiatric: Yes: Oriented Labs: CBC, BMP 07/28/18 12:00 07/28/18 12:11 INR, PTT INR 1.16 (0.83-1.09) H 07/21/18 19:45 Problem List - Problems (1) ESRD (end stage renal disease) Code(s): N18.6 - END STAGE RENAL DISEASE Assessment/Plan Current Medications Generic Name Dose Route Start Last Admin Trade Name Freq PRN Reason Stop Dose Admin Acetaminophen 650 mg 07/22/18 07:47 07/30/18 10:32 Tylenol - PO 650 mg Q4H PRN Administration PAIN 1-3 Amitriptyline HCl 100 mg 07/22/18 10:00 07/30/18 09:56 Elavil - PO 100 mg DAILY [facility] Administration Amoxicillin/Clavulanate Potassium 1 tab 07/23/18 22:00 07/29/18 22:04 Augmentin - 875mg Tablet PO 1 tab HS [facility] Administration Aspirin 81 mg 07/22/18 10:00 07/30/18 09:56 Ecotrin - PO 81 mg DAILY [facility] Administration Atorvastatin Calcium 20 mg 07/22/18 22:00 07/29/18 22:04 Lipitor - PO 20 mg HS [facility] Administration Bacitracin 1 applic 07/25/18 22:00 07/30/18 09:57 Bacitracin - TP 1 applic BID [facility] Administration Calcium Acetate 1,334 mg 07/22/18 12:00 07/30/18 11:18 Phoslo - PO 1,334 mg TIDCM [facility] Administration Collagenase 1 applic 07/29/18 16:10 07/30/18 09:57 Santyl - TP 1 applic DAILY [facility] Administration Docusate Sodium 100 mg 07/22/18 10:00 07/30/18 09:56 Colace - PO 100 mg DAILY [facility] Administration Enoxaparin Sodium 30 mg 07/22/18 10:00 07/30/18 09:56 Lovenox - SQ 30 mg DAILY [facility] Administration Daptomycin 1,000 mg/ Sodium 50 mls @ 100 mls/hr 07/31/18 10:00 Chloride IVPB TuThSa [facility] Protocol Insulin Aspart 1 vial 07/22/18 11:00 07/30/18 11:18 Novolog Vial Sliding Scale - SQ Not Given ACHS [facility] Protocol Lidocaine 1 patch 07/26/18 10:00 07/30/18 09:56 Lidoderm Patch - TP 1 patch DAILY [facility] Administration Melatonin 5 mg 07/27/18 01:41 07/29/18 22:04 Melatonin PO 5 mg HS PRN Administration INSOMNIA Miscellaneous 1 each 07/26/18 22:00 07/29/18 22:05 Lidoderm Patch Removal MC 1 each DAILY@2200 [facility] Administration Oxycodone HCl 10 mg 07/29/18 12:49 07/30/18 10:33 Roxicodone - PO 10 mg Q4H PRN Administration PAIN LEVEL 7 - 10 Pantoprazole Sodium 40 mg 07/22/18 10:00 07/30/18 09:56 Protonix - PO 40 mg BID DAIVD Administration Polyethylene Glycol 17 gm 07/28/18 10:00 07/30/18 09:56 Miralax (For Daily Use) - PO 17 gm DAILY [facility] Administration Quetiapine Fumarate 200 mg 07/22/18 22:00 07/29/18 22:04 Seroquel - PO 200 mg HS [facility] Administration Sevelamer Carbonate 800 mg 07/22/18 08:00 07/30/18 11:18 Renvela - PO Not Given TIDCM [facility] Zolpidem Tartrate 5 mg 07/27/18 22:00 07/29/18 22:04 Ambien - PO 5 mg HS PRN Administration INSOMNIA Impression 1. ESRD 2. abdominal pain 3. sleep apnea 4. htn 5. dm 6. asthma 7. obesity 8. anxiety 9. hx of acute psychosis/delusions 10. hx hyperkalemia Plan - HD tomorrow - abx per ID - hd is set up as outpt - renal diet - will follow
[2018-07-30] MEDS: MELATONIN 5 MG TABLETS PO PRN (22:45)
[2018-07-30] MEDS: ATORVASTATIN CA 20 MG TABLET (FP) PO SCH (22:45)
[2018-07-30] MEDS: AMOX TR/POT CLAV 875MG/125MG TABLETS (FP) PO SCH (22:45)
[2018-07-30] MEDS: ZOLPIDEM TARTRATE 5 MG TABLET PO PRN (22:46)
[2018-07-30] MEDS: QUEtiapine FUMARATE 200 MG TABLET PO SCH (22:47)
[2018-07-30] MEDS: LIDOCAINE PATCH REMOVAL MC SCH (22:48)
[2018-07-31] MEDS: ACETAMINOPHEN 325 MG TABLET (FP) PO PRN ×3 (06:00→15:22)
[2018-07-31] MEDS: oxyCODONE HCL 5 MG TABLET PO PRN ×4 (06:01→22:55)
[2018-07-31] MEDS: INSULIN SLIDING SCALE (NOVOLOG) 1 VIAL SQ SCH ×4 (06:04→22:53)
--- NOTE | 2018-07-31 09:15 | PN ---
Progress Note (short form) - Note Progress Note: no change, has been stable Vital Signs Period Temp Pulse Resp BP Sys/Chan Pulse Ox Last 24 Hr 97.7 F-98 F 76-85 18-20 144-155/79-90 100 s1s2 rrr lungs cta abd retention sutures with small area of opening, otherwise without sign of infection right arm open wound with packing-minimal slough present abd soft +BS no edema awake alert, mentation is at baseline moves all 4 extremities equally, no focal deficit denies complaints skin breakdown over gluteal folds ESRD recent open surgery removal of infected abdominal mesh recent bacteremia MRSA+ 1 month ago morbid obesity resolved metabolic encephalopathy due to missed hd, and percocet overuse wound care bacitracin to gluteal area abx as oredered HD tu,brandi,sat PT patient is medically stable to discharge to [facility], however she is on daptomycin due to MRSA bacteremia on 06.26.19, and infected abdominal mesh and indwelling HD access catheter. Obtained records and reviewed records form [facility], recomendation was that she should be treated for 6 weeks, at least until 08.07.18 by my calculations. We have been unable to find STR facilities who are willing to accommodate daptomycin use due to its course. Will obtain ID input to see if we could switch her to iv Vanco instead.
[2018-07-31] MEDS: SEVELAMER CARBONATE 800 MG TAB (FP) PO SCH ×3 (09:53→18:18)
[2018-07-31] MEDS: CALCIUM ACETATE 667 MG CAPSULE (FP) PO SCH ×3 (09:53→18:18)
[2018-07-31] MEDS ORDERED: EPOETIN ALFA 2,000 UNIT/1 ML VIAL IVPUSH ONE (11:15)
[2018-07-31 11:21] LABS: ANION GAP 8 MMOL/L (8-16); BLOOD UREA NITROGEN 50 mg/dL (7-18); CALCIUM 8.8 mg/dL (8.5-10.1); CHLORIDE 98 mmol/L (98-107); CO2 28 mmol/L (21-32); GLUCOSE,RANDOM 75 mg/dL (74-106); POTASSIUM 4.8 mmol/L (3.5-5.1); SODIUM 133 mmol/L (136-145)
[2018-07-31 11:23] LABS: CREATININE 8.9 mg/dL (0.55-1.3)
[2018-07-31] MEDS ORDERED: EPOETIN ALFA 10,000 UNIT/1 ML VIAL IVPUSH ONE (11:30)
[2018-07-31 11:37] LABS: HEMATOCRIT 28.9 % (32.4-45.2); HEMOGLOBIN 9.2 GM/dL (10.7-15.3); MCH 29.6 pg (25.7-33.7); MCHC 31.8 g/dl (32.0-36.0); MEAN PLT VOLUME 9.3 fl (7.5-11.1); PLATELET COUNT 119 K/MM3 (134-434); RDW 17.1 % (11.6-15.6); WHITE BLOOD COUNT 4.3 K/mm3 (4.0-10.0)
[2018-07-31] MEDS: DAPTOMYCIN 1,000 MG in SODIUM CHLORIDE 50 ML IVPB SCH (14:38)
[2018-07-31] MEDS: ENOXAPARIN NA (PORCINE) 30 MG/0.3 ML DISP.SYRIN SQ SCH (14:52)
[2018-07-31] MEDS: LIDOCAINE 5% TOPICAL PATCH TP SCH (14:52)
[2018-07-31] MEDS: PANTOPRAZOLE 40 MG TABLET (FP) PO SCH ×2 (14:52→22:54)
[2018-07-31] MEDS: DOCUSATE SODIUM 100 MG CAPSULE (FP) PO SCH (14:53)
[2018-07-31] MEDS: AMITRIPTYLINE HCL 25 MG TABLET (FP) PO SCH (14:53)
[2018-07-31] MEDS: BACITRACIN 15 GM TUBE TOPICAL OINTMENT TP SCH ×2 (14:53→22:52)
[2018-07-31] MEDS: ASPIRIN COATED 81 MG TABLET.EC PO SCH (14:54)
[2018-07-31] MEDS: POLYETHYLENE GLYCOL 3350 119 GM BTL PO SCH (14:54)
[2018-07-31] MEDS: COLLAGENASE CLOSTRIDIUM HIST. 30 GRAMS TUBE TP SCH (14:54)
--- NOTE | 2018-07-31 15:36 | PN ---
Progress Note, Physician History of Present Illness: Pt seen and examined at bedside. She is awake and alert. She denies shortness of breath. She tolerated HD. - Current Medication List Current Medications: Active Medications Acetaminophen (Tylenol -) 650 mg PO Q4H PRN PRN Reason: PAIN 1-3 Last Admin: 07/31/18 15:22 Dose: 650 mg Alprazolam (Xanax -) 0.25 mg PO BID PRN PRN Reason: ANXIETY Amitriptyline HCl (Elavil -) 100 mg PO DAILY [facility] Last Admin: 07/31/18 14:53 Dose: 100 mg Amoxicillin/Clavulanate Potassium (Augmentin - 875mg Tablet) 1 tab PO HS [facility] Last Admin: 07/30/18 22:45 Dose: 1 tab Aspirin (Ecotrin -) 81 mg PO DAILY [facility] Last Admin: 07/31/18 14:54 Dose: 81 mg Atorvastatin Calcium (Lipitor -) 20 mg PO HS [facility] Last Admin: 07/30/18 22:45 Dose: 20 mg Bacitracin (Bacitracin -) 1 applic TP BID [facility] Last Admin: 07/31/18 14:53 Dose: 1 applic Calcium Acetate (Phoslo -) 1,334 mg PO TIDCM [facility] Last Admin: 07/31/18 14:52 Dose: 1,334 mg Collagenase (Santyl -) 1 applic TP DAILY [facility] Last Admin: 07/31/18 14:54 Dose: 1 applic Docusate Sodium (Colace -) 100 mg PO DAILY [facility] Last Admin: 07/31/18 14:53 Dose: 100 mg Enoxaparin Sodium (Lovenox -) 30 mg SQ DAILY [facility] Last Admin: 07/31/18 14:52 Dose: 30 mg Daptomycin 1,000 mg/ Sodium (Chloride) 50 mls @ 100 mls/hr IVPB TuThSa [facility]; Protocol Last Admin: 07/31/18 14:38 Dose: 100 mls/hr Insulin Aspart (Novolog Vial Sliding Scale -) 1 vial SQ ACHS [facility]; Protocol Last Admin: 07/31/18 15:01 Dose: Not Given Lidocaine (Lidoderm Patch -) 1 patch TP DAILY [facility] Last Admin: 07/31/18 14:52 Dose: 1 patch Melatonin (Melatonin) 5 mg PO HS PRN PRN Reason: INSOMNIA Last Admin: 01/21/19 22:45 Dose: 5 mg Miscellaneous (Lidoderm Patch Removal) 1 each MC DAILY@2200 [facility] Last Admin: 07/30/18 22:48 Dose: 1 each Oxycodone HCl (Roxicodone -) 10 mg PO Q4H PRN PRN Reason: PAIN LEVEL 7 - 10 Last Admin: 07/31/18 15:21 Dose: 10 mg Pantoprazole Sodium (Protonix -) 40 mg PO BID [facility] Last Admin: 07/31/18 14:52 Dose: 40 mg Polyethylene Glycol (Miralax (For Daily Use) -) 17 gm PO DAILY [facility] Last Admin: 07/31/18 14:54 Dose: 17 gm Quetiapine Fumarate (Seroquel -) 200 mg PO HS [facility] Last Admin: 07/30/18 22:47 Dose: 200 mg Sevelamer Carbonate (Renvela -) 800 mg PO TIDCM [facility] Last Admin: 07/31/18 14:53 Dose: 800 mg Zolpidem Tartrate (Ambien -) 5 mg PO HS PRN PRN Reason: INSOMNIA Last Admin: 07/30/18 22:46 Dose: 5 mg - Objective Vital Signs: Vital Signs Temperature 97.8 F 07/31/18 10:10 Pulse Rate 85 07/31/18 14:06 Respiratory Rate 18 07/31/18 14:06 Blood Pressure 117/73 07/31/18 14:06 O2 Sat by Pulse Oximetry (%) 100 07/30/18 21:00 Constitutional: Yes: Calm Eyes: Yes: Conjunctiva Clear HENT: Yes: Atraumatic Neck: Yes: Supple Cardiovascular: Yes: S1, S2 Respiratory: Yes: CTA Bilaterally Gastrointestinal: Yes: Soft, Other (dressing in place) Genitourinary: Yes: WNL Musculoskeletal: Yes: WNL Edema: No Neurological: Yes: Oriented Psychiatric: Yes: Oriented Labs: CBC, BMP 07/31/18 10:15 07/31/18 10:15 INR, PTT INR 1.16 (0.83-1.09) H 07/21/18 19:45 Problem List - Problems (1) ESRD (end stage renal disease) Code(s): N18.6 - END STAGE RENAL DISEASE Assessment/Plan Current Medications Generic Name Dose Route Start Last Admin Trade Name Freq PRN Reason Stop Dose Admin Acetaminophen 650 mg 07/22/18 07:47 07/31/18 15:22 Tylenol - PO 650 mg Q4H PRN Administration PAIN 1-3 Alprazolam 0.25 mg 07/31/18 09:14 Xanax - PO BID PRN ANXIETY Amitriptyline HCl 100 mg 07/22/18 10:00 07/31/18 14:53 Elavil - PO 100 mg DAILY [facility] Administration Amoxicillin/Clavulanate Potassium 1 tab 07/23/18 22:00 07/30/18 22:45 Augmentin - 875mg Tablet PO 1 tab HS [facility] Administration Aspirin 81 mg 07/22/18 10:00 07/31/18 14:54 Ecotrin - PO 81 mg DAILY [facility] Administration Atorvastatin Calcium 20 mg 07/22/18 22:00 07/30/18 22:45 Lipitor - PO 20 mg HS [facility] Administration Bacitracin 1 applic 07/25/18 22:00 07/31/18 14:53 Bacitracin - TP 1 applic BID [facility] Administration Calcium Acetate 1,334 mg 07/22/18 12:00 07/31/18 14:52 Phoslo - PO 1,334 mg TIDCM [facility] Administration Collagenase 1 applic 07/29/18 16:10 07/31/18 14:54 Santyl - TP 1 applic DAILY [facility] Administration Docusate Sodium 100 mg 07/22/18 10:00 07/31/18 14:53 Colace - PO 100 mg DAILY [facility] Administration Enoxaparin Sodium 30 mg 07/22/18 10:00 07/31/18 14:52 Lovenox - SQ 30 mg DAILY [facility] Administration Daptomycin 1,000 mg/ Sodium 50 mls @ 100 mls/hr 07/31/18 10:00 07/31/18 14:38 Chloride IVPB 100 mls/hr TuTa [facility] Administration Protocol Insulin Aspart 1 vial 07/22/18 11:00 07/31/18 15:01 Novolog Vial Sliding Scale - SQ Not Given ACHS [facility] Protocol Lidocaine 1 patch 07/26/18 10:00 07/31/18 14:52 Lidoderm Patch - TP 1 patch DAILY [facility] Administration Melatonin 5 mg 07/27/18 01:41 07/30/18 22:45 Melatonin PO 5 mg HS PRN Administration INSOMNIA Miscellaneous 1 each 07/26/18 22:00 07/30/18 22:48 Lidoderm Patch Removal MC 1 each DAILY@2200 [facility] Administration Oxycodone HCl 10 mg 07/29/18 12:49 07/31/18 15:21 Roxicodone - PO 10 mg Q4H PRN Administration PAIN LEVEL 7 - 10 Pantoprazole Sodium 40 mg 07/22/18 10:00 07/31/18 14:52 Protonix - PO 40 mg BID [facility] Administration Polyethylene Glycol 17 gm 07/28/18 10:00 07/31/18 14:54 Miralax (For Daily Use) - PO 17 gm DAILY [facility] Administration Quetiapine Fumarate 200 mg 07/22/18 22:00 07/30/18 22:47 Seroquel - PO 200 mg HS [facility] Administration Sevelamer Carbonate 800 mg 07/22/18 08:00 07/31/18 14:53 Renvela - PO 800 mg TIDCM [facility] Administration Zolpidem Tartrate 5 mg 07/27/18 22:00 07/30/18 22:46 Ambien - PO 5 mg HS PRN Administration INSOMNIA Impression 1. ESRD 2. abdominal pain 3. sleep apnea 4. htn 5. dm 6. asthma 7. obesity 8. anxiety 9. hx of acute psychosis/delusions 10. hx hyperkalemia Plan - HD today - cont abx - d/c planning - ID follow up - hd is set up as outpt - renal diet - will follow
[2018-07-31] MEDS: ALPRAZolam 0.25 MG TABLET PO PRN (18:24)
--- NOTE | 2018-07-31 19:49 | PN ---
Progress Note (short form) - Note Progress Note: ID CONSULT DICTATED CHART AND RECORDS FROM [facility] REVIEWED CONTINUE DAPTOMYCIN COMPLETE 6W COURSE (08/07/18 STOP DATE)
[2018-07-31] MEDS: AMOX TR/POT CLAV 875MG/125MG TABLETS (FP) PO SCH (22:51)
[2018-07-31] MEDS: LIDOCAINE PATCH REMOVAL MC SCH (22:52)
[2018-07-31] MEDS: ATORVASTATIN CA 20 MG TABLET (FP) PO SCH (22:53)
[2018-07-31] MEDS: QUEtiapine FUMARATE 200 MG TABLET PO SCH (22:54)
[2018-07-31] MEDS: MELATONIN 5 MG TABLETS PO PRN (22:55)
[2018-07-31] MEDS: ZOLPIDEM TARTRATE 5 MG TABLET PO PRN (23:35)
[2018-08-01] MEDS: ALPRAZolam 0.25 MG TABLET PO PRN ×2 (01:24→22:43)
[2018-08-01] MEDS: INSULIN SLIDING SCALE (NOVOLOG) 1 VIAL SQ SCH ×4 (06:29→22:41)
--- NOTE | 2018-08-01 08:34 | CONS ---
DATE OF CONSULTATION: 07/31/2018 INFECTIOUS DISEASE CONSULTATION HISTORY OF PRESENT ILLNESS: The patient is a 53-year-old female with history of end-stage renal disease, on hemodialysis; history of recurrent MRSA bacteremia/sepsis, now evaluated for antibiotic therapy. The patient has a history of catheter-related MRSA sepsis in the past. She was seen by our service in October 2017. She presented to the emergency room on June 25, 2018, with complaints of abdominal pain. She was found to have a recurrent incisional hernia with cellulitis. The patient was transferred to [facility]. Blood cultures obtained during that emergency room visit were positive for MRSA. At [facility], she underwent hernia repair, with removal of mesh. Hospital notes from [facility] were reviewed. According to the note, she had infected mesh as well as infected fluid collections adjacent to the mesh. She was discharged from [facility] on to complete a 6-week course of IV daptomycin for MRSA bacteremia, infected abdominal mesh and infectious endocarditis/endovascular infection. At the present time she is awake and alert. She has no complaints. She presented to [facility] on July 22, 2018, with some altered mental status and low-grade fever, as well as anorexia and generalized weakness. She was felt to have a toxic metabolic encephalopathy secondary to missing dialysis sessions and possible opiate-induced sedation. The patient has been afebrile, with a normal white blood cell count. Blood cultures from July 21 are negative. PAST MEDICAL HISTORY: Positive for end-stage renal disease, on hemodialysis; morbid obesity; history of MRSA bacteremia secondary to infected catheter; hypertension; obstructive sleep apnea; asthma; anxiety; chronic low back pain; diabetes mellitus. PAST SURGICAL HISTORY: Status post right upper extremity AV fistula, multiple ventral hernia repairs. ALLERGIES: No known allergies. LABORATORY DATA: White count 4.3, hematocrit 28.9, platelet count 119. Creatinine 8.9. CPK 164. REVIEW OF SYSTEMS: Neurologic: No loss of consciousness, seizure activity or focal weakness. Cardiac: Negative for chest pain or palpitations. Respiratory: Negative for cough or sputum production. Gastrointestinal: Negative for vomiting or diarrhea. Genitourinary: End-stage renal disease, on hemodialysis. PHYSICAL EXAMINATION: General: She is chronically ill appearing. Vital Signs: Temperature 97.8, blood pressure 117/73, pulse 85 and regular, respirations 20 per minute. HEENT: Sclerae anicteric. Cardiac: Heart sounds S1, S2. No murmur. Lungs: Diminished breath sounds bilaterally. Abdomen: There is a midline abdominal wound with retention sutures in place. There is no evidence of wound infection. No erythema or drainage. Extremities: Positive for edema. Right upper extremity: There is an incisional wound present at the place of the right AV fistula, with packing in place. No purulent drainage is noted. IMPRESSION: 1. 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 2. Status post removal of infected intra-abdominal mesh. 3. Repair of recurrent ventral hernia. 4. End-stage renal disease, on hemodialysis. PLAN: [facility] chart and records from [facility] reviewed in detail. Advised completion of 6-week course of daptomycin for complicated MRSA bacteremia and presumed endovascular infection. Obtain sedimentation rate, C-reactive protein and CPK. Surgical followup. Thank you for the kind referral. SONYA JOHNS M.D. [id number]
--- NOTE | 2018-08-01 09:07 | PN ---
Progress Note (short form) - Note Progress Note: no change, has been stable CBC, BMP 07/31/18 10:15 07/31/18 10:15 Vital Signs Period Temp Pulse Resp BP Sys/Chan Pulse Ox Last 24 Hr 97.5 F-98 F 76-90 18-18 100-176/65-86 100-100 s1s2 rrr lungs cta abd retention sutures with small area of opening, otherwise without sign of infection right arm open wound with packing-minimal slough present abd soft +BS no edema awake alert, mentation is at baseline moves all 4 extremities equally, no focal deficit denies complaints skin breakdown over gluteal folds ESRD recent open surgery removal of infected abdominal mesh recent bacteremia MRSA+ 1 month ago morbid obesity resolved metabolic encephalopathy due to missed hd, and percocet overuse wound care bacitracin to gluteal area abx as oredered HD tu,brandi,sat PT Consults greatly appreciated iv Daptomycin to complete on 08.07.18Monday called [facility] surgical clinic [phone] rescheduled appointment for 08.08.18Monday at 1pm
[2018-08-01] MEDS: BACITRACIN 15 GM TUBE TOPICAL OINTMENT TP SCH ×2 (10:59→22:41)
[2018-08-01] MEDS: CALCIUM ACETATE 667 MG CAPSULE (FP) PO SCH ×3 (10:59→18:47)
[2018-08-01] MEDS: SEVELAMER CARBONATE 800 MG TAB (FP) PO SCH ×3 (10:59→18:49)
[2018-08-01] MEDS: ENOXAPARIN NA (PORCINE) 30 MG/0.3 ML DISP.SYRIN SQ SCH (10:59)
[2018-08-01] MEDS: LIDOCAINE 5% TOPICAL PATCH TP SCH (11:00)
[2018-08-01] MEDS: AMITRIPTYLINE HCL 25 MG TABLET (FP) PO SCH (11:00)
[2018-08-01] MEDS: DOCUSATE SODIUM 100 MG CAPSULE (FP) PO SCH (11:00)
[2018-08-01] MEDS: ASPIRIN COATED 81 MG TABLET.EC PO SCH (11:00)
[2018-08-01] MEDS: PANTOPRAZOLE 40 MG TABLET (FP) PO SCH ×2 (11:00→22:41)
[2018-08-01] MEDS: POLYETHYLENE GLYCOL 3350 119 GM BTL PO SCH (11:01)
[2018-08-01] MEDS: COLLAGENASE CLOSTRIDIUM HIST. 30 GRAMS TUBE TP SCH (11:01)
--- NOTE | 2018-08-01 11:30 | PN ---
Progress Note, Physician History of Present Illness: Pt seen and examined at bedside. She is awake and alert. She denies fevers or chills. - Current Medication List Current Medications: Active Medications Acetaminophen (Tylenol -) 650 mg PO Q4H PRN PRN Reason: PAIN 1-3 Last Admin: 07/31/18 15:22 Dose: 650 mg Alprazolam (Xanax -) 0.25 mg PO BID PRN PRN Reason: ANXIETY Last Admin: 08/01/18 01:24 Dose: 0.25 mg Amitriptyline HCl (Elavil -) 100 mg PO DAILY [facility] Last Admin: 08/01/18 11:00 Dose: 100 mg Amoxicillin/Clavulanate Potassium (Augmentin - 875mg Tablet) 1 tab PO HS [facility] Last Admin: 07/31/18 22:51 Dose: 1 tab Aspirin (Ecotrin -) 81 mg PO DAILY [facility] Last Admin: 08/01/18 11:00 Dose: 81 mg Atorvastatin Calcium (Lipitor -) 20 mg PO HS [facility] Last Admin: 07/31/18 22:53 Dose: 20 mg Bacitracin (Bacitracin -) 1 applic TP BID [facility] Last Admin: 08/01/18 10:59 Dose: 1 applic Calcium Acetate (Phoslo -) 1,334 mg PO TIDCM [facility] Last Admin: 08/01/18 10:59 Dose: Not Given Collagenase (Santyl -) 1 applic TP DAILY [facility] Last Admin: 08/01/18 11:01 Dose: 1 applic Docusate Sodium (Colace -) 100 mg PO DAILY [facility] Last Admin: 08/01/18 11:00 Dose: 100 mg Enoxaparin Sodium (Lovenox -) 30 mg SQ DAILY [facility] Last Admin: 08/01/18 10:59 Dose: 30 mg Daptomycin 1,000 mg/ Sodium (Chloride) 50 mls @ 100 mls/hr IVPB TuThSa [facility]; Protocol Last Admin: 07/31/18 14:38 Dose: 100 mls/hr Insulin Aspart (Novolog Vial Sliding Scale -) 1 vial SQ ACHS [facility]; Protocol Last Admin: 08/01/18 11:11 Dose: Not Given Lidocaine (Lidoderm Patch -) 1 patch TP DAILY [facility] Last Admin: 08/01/18 11:00 Dose: 1 patch Melatonin (Melatonin) 5 mg PO HS PRN PRN Reason: INSOMNIA Last Admin: 07/31/18 22:55 Dose: 5 mg Miscellaneous (Lidoderm Patch Removal) 1 each MC DAILY@2200 [facility] Last Admin: 07/31/18 22:52 Dose: 1 each Oxycodone HCl (Roxicodone -) 10 mg PO Q4H PRN PRN Reason: PAIN LEVEL 7 - 10 Last Admin: 07/31/18 22:55 Dose: 10 mg Pantoprazole Sodium (Protonix -) 40 mg PO BID [facility] Last Admin: 08/01/18 11:00 Dose: 40 mg Polyethylene Glycol (Miralax (For Daily Use) -) 17 gm PO DAILY [facility] Last Admin: 08/01/18 11:01 Dose: 17 gm Quetiapine Fumarate (Seroquel -) 200 mg PO HS [facility] Last Admin: 07/31/18 22:54 Dose: 200 mg Sevelamer Carbonate (Renvela -) 800 mg PO TIDCM [facility] Last Admin: 08/01/18 10:59 Dose: Not Given Zolpidem Tartrate (Ambien -) 5 mg PO HS PRN PRN Reason: INSOMNIA Last Admin: 07/31/18 23:35 Dose: 5 mg - Objective Vital Signs: Vital Signs Temperature 97.8 F 08/01/18 06:00 Pulse Rate 76 08/01/18 06:00 Respiratory Rate 18 08/01/18 06:00 Blood Pressure 176/82 H 08/01/18 06:00 O2 Sat by Pulse Oximetry (%) 100 07/31/18 21:00 Constitutional: Yes: Calm Eyes: Yes: Conjunctiva Clear HENT: Yes: Atraumatic Neck: Yes: Supple Cardiovascular: Yes: S1, S2 Respiratory: Yes: CTA Bilaterally Gastrointestinal: Yes: Soft, Other (dressing in place) Musculoskeletal: Yes: WNL Edema: No Neurological: Yes: Oriented Psychiatric: Yes: Oriented Labs: CBC, BMP 07/31/18 10:15 07/31/18 10:15 INR, PTT INR 1.16 (0.83-1.09) H 07/21/18 19:45 Problem List - Problems (1) ESRD (end stage renal disease) Code(s): N18.6 - END STAGE RENAL DISEASE Assessment/Plan Current Medications Generic Name Dose Route Start Last Admin Trade Name Freq PRN Reason Stop Dose Admin Acetaminophen 650 mg 07/22/18 07:47 07/31/18 15:22 Tylenol - PO 650 mg Q4H PRN Administration PAIN 1-3 Alprazolam 0.25 mg 07/31/18 09:14 08/01/18 01:24 Xanax - PO 0.25 mg BID PRN Administration ANXIETY Amitriptyline HCl 100 mg 07/22/18 10:00 08/01/18 11:00 Elavil - PO 100 mg DAILY [facility] Administration Amoxicillin/Clavulanate Potassium 1 tab 07/23/18 22:00 07/31/18 22:51 Augmentin - 875mg Tablet PO 1 tab HS [facility] Administration Aspirin 81 mg 07/22/18 10:00 08/01/18 11:00 Ecotrin - PO 81 mg DAILY [facility] Administration Atorvastatin Calcium 20 mg 07/22/18 22:00 07/31/18 22:53 Lipitor - PO 20 mg HS [facility] Administration Bacitracin 1 applic 07/25/18 22:00 08/01/18 10:59 Bacitracin - TP 1 applic BID [facility] Administration Calcium Acetate 1,334 mg 07/22/18 12:00 08/01/18 10:59 Phoslo - PO Not Given TIDCM [facility] Collagenase 1 applic 07/29/18 16:10 08/01/18 11:01 Santyl - TP 1 applic DAILY [facility] Administration Docusate Sodium 100 mg 07/22/18 10:00 08/01/18 11:00 Colace - PO 100 mg DAILY [facility] Administration Enoxaparin Sodium 30 mg 07/22/18 10:00 08/01/18 10:59 Lovenox - SQ 30 mg DAILY [facility] Administration Daptomycin 1,000 mg/ Sodium 50 mls @ 100 mls/hr 07/31/18 10:00 07/31/18 14:38 Chloride IVPB 100 mls/hr TuThSa [facility] Administration Protocol Insulin Aspart 1 vial 07/22/18 11:00 08/01/18 11:11 Novolog Vial Sliding Scale - SQ Not Given ACHS [facility] Protocol Lidocaine 1 patch 07/26/18 10:00 08/01/18 11:00 Lidoderm Patch - TP 1 patch DAILY [facility] Administration Melatonin 5 mg 07/27/18 01:41 07/31/18 22:55 Melatonin PO 5 mg HS PRN Administration INSOMNIA Miscellaneous 1 each 07/26/18 22:00 07/31/18 22:52 Lidoderm Patch Removal MC 1 each DAILY@2200 [facility] Administration Oxycodone HCl 10 mg 07/29/18 12:49 07/31/18 22:55 Roxicodone - PO 10 mg Q4H PRN Administration PAIN LEVEL 7 - 10 Pantoprazole Sodium 40 mg 07/22/18 10:00 08/01/18 11:00 Protonix - PO 40 mg BID [facility] Administration Polyethylene Glycol 17 gm 07/28/18 10:00 08/01/18 11:01 Miralax (For Daily Use) - PO 17 gm DAILY [facility] Administration Quetiapine Fumarate 200 mg 07/22/18 22:00 07/31/18 22:54 Seroquel - PO 200 mg HS [facility] Administration Sevelamer Carbonate 800 mg 07/22/18 08:00 08/01/18 10:59 Renvela - PO Not Given TIDCM [facility] Zolpidem Tartrate 5 mg 07/27/18 22:00 07/31/18 23:35 Ambien - PO 5 mg HS PRN Administration INSOMNIA Impression 1. ESRD 2. abdominal pain 3. sleep apnea 4. htn 5. dm 6. asthma 7. obesity 8. anxiety 9. hx of acute psychosis/delusions 10. hx hyperkalemia Plan - pt for HD tomorrow - cont abx - d/c planning - ID follow up - hd is set up as outpt - renal diet - discussed with attending - will follow
[2018-08-01] MEDS: oxyCODONE HCL 5 MG TABLET PO PRN ×2 (12:14→22:43)
[2018-08-01] MEDS: ACETAMINOPHEN 325 MG TABLET (FP) PO PRN (12:15)
[2018-08-01] MEDS: QUEtiapine FUMARATE 200 MG TABLET PO SCH (22:40)
[2018-08-01] MEDS: LIDOCAINE PATCH REMOVAL MC SCH (22:41)
[2018-08-01] MEDS: AMOX TR/POT CLAV 875MG/125MG TABLETS (FP) PO SCH (22:41)
[2018-08-01] MEDS: ATORVASTATIN CA 20 MG TABLET (FP) PO SCH (22:41)
[2018-08-01] MEDS: MELATONIN 5 MG TABLETS PO PRN (22:43)
[2018-08-02] MEDS: INSULIN SLIDING SCALE (NOVOLOG) 1 VIAL SQ SCH ×3 (07:33→16:33)
[2018-08-02] MEDS: CALCIUM ACETATE 667 MG CAPSULE (FP) PO SCH ×3 (07:34→16:33)
[2018-08-02] MEDS: SEVELAMER CARBONATE 800 MG TAB (FP) PO SCH ×3 (07:34→16:33)
--- NOTE | 2018-08-02 08:42 | PN ---
Progress Note (short form) - Note Progress Note: no change, has been stable seen en-route to HD CBC, BMP 07/31/18 10:15 07/31/18 10:15 Vital Signs Period Temp Pulse Resp BP Sys/Chan Pulse Ox Last 24 Hr 97.4 F-98.1 F 73-90 18-20 119-148/60-95 97 s1s2 rrr lungs cta abd retention sutures with small area of opening, otherwise without sign of infection right arm open wound with packing-minimal slough present abd soft +BS no edema awake alert, mentation is at baseline moves all 4 extremities equally, no focal deficit denies complaints ESRD recent open surgery removal of infected abdominal mesh recent bacteremia MRSA+ 1 month ago morbid obesity resolved metabolic encephalopathy due to missed hd, and percocet overuse wound care abx as oredered HD tu,brandi,sat PT Consults greatly appreciated iv Daptomycin to complete on 08.07.18Monday called [facility] surgical clinic [phone] rescheduled appointment for 08.08.18Monday at 1pm
[2018-08-02 09:17] LABS: HEMATOCRIT 29.1 % (32.4-45.2); HEMOGLOBIN 9.2 GM/dL (10.7-15.3); MCH 29.5 pg (25.7-33.7); MCHC 31.8 g/dl (32.0-36.0); MEAN CELL VOLUME 92.8 fl (80-96); MEAN PLT VOLUME 8.9 fl (7.5-11.1); PLATELET COUNT 133 K/MM3 (134-434); RBC 3.13 M/mm3 (3.60-5.2); RDW 17.1 % (11.6-15.6); WHITE BLOOD COUNT 4.1 K/mm3 (4.0-10.0)
[2018-08-02] MEDS ORDERED: SODIUM CHLORIDE 250 ML IV PRN (09:28)
[2018-08-02] MEDS ORDERED: HEPARIN NA (PORCINE) 5,000 UNITS/ML 1ML VIAL IVPUSH SCH (09:30)
[2018-08-02 09:42] LABS: ANION GAP 8 MMOL/L (8-16); BLOOD UREA NITROGEN 43 mg/dL (7-18); CALCIUM 8.4 mg/dL (8.5-10.1); CHLORIDE 96 mmol/L (98-107); CO2 28 mmol/L (21-32); GLUCOSE,RANDOM 82 mg/dL (74-106); POTASSIUM 4.6 mmol/L (3.5-5.1); SODIUM 133 mmol/L (136-145)
[2018-08-02 10:21] LABS: CREATININE 7.7 mg/dL (0.55-1.3)
[2018-08-02] MEDS ORDERED: EPOETIN ALFA 10,000 UNIT/1 ML VIAL IVPUSH ONE (10:30)
[2018-08-02] MEDS: DAPTOMYCIN 1,000 MG in SODIUM CHLORIDE 50 ML IVPB SCH (12:17)
[2018-08-02] MEDS: ASPIRIN COATED 81 MG TABLET.EC PO SCH (12:30)
[2018-08-02] MEDS: DOCUSATE SODIUM 100 MG CAPSULE (FP) PO SCH (12:30)
[2018-08-02] MEDS: ENOXAPARIN NA (PORCINE) 30 MG/0.3 ML DISP.SYRIN SQ SCH (12:30)
[2018-08-02] MEDS: AMITRIPTYLINE HCL 25 MG TABLET (FP) PO SCH (12:30)
[2018-08-02] MEDS: POLYETHYLENE GLYCOL 3350 119 GM BTL PO SCH (12:31)
[2018-08-02] MEDS: LIDOCAINE 5% TOPICAL PATCH TP SCH (12:31)
[2018-08-02] MEDS: PANTOPRAZOLE 40 MG TABLET (FP) PO SCH ×2 (12:31→21:56)
[2018-08-02] MEDS: COLLAGENASE CLOSTRIDIUM HIST. 30 GRAMS TUBE TP SCH (12:31)
[2018-08-02] MEDS: BACITRACIN 15 GM TUBE TOPICAL OINTMENT TP SCH (12:31)
[2018-08-02] MEDS: oxyCODONE HCL 5 MG TABLET PO PRN ×2 (13:29→21:55)
[2018-08-02] MEDS: ACETAMINOPHEN 325 MG TABLET (FP) PO PRN (13:29)
--- NOTE | 2018-08-02 14:40 | PN ---
Progress Note, Physician History of Present Illness: Pt seen and examined at bedside. She is awake and alert. She tolerated HD. - Current Medication List Current Medications: Active Medications Acetaminophen (Tylenol -) 650 mg PO Q4H PRN PRN Reason: PAIN 1-3 Last Admin: 08/02/18 13:29 Dose: 650 mg Alprazolam (Xanax -) 0.25 mg PO BID PRN PRN Reason: ANXIETY Last Admin: 08/01/18 22:43 Dose: 0.25 mg Amitriptyline HCl (Elavil -) 100 mg PO DAILY [facility] Last Admin: 08/02/18 12:30 Dose: 100 mg Amoxicillin/Clavulanate Potassium (Augmentin - 875mg Tablet) 1 tab PO HS [facility] Last Admin: 08/01/18 22:41 Dose: 1 tab Aspirin (Ecotrin -) 81 mg PO DAILY [facility] Last Admin: 08/02/18 12:30 Dose: 81 mg Atorvastatin Calcium (Lipitor -) 20 mg PO HS [facility] Last Admin: 08/01/18 22:41 Dose: 20 mg Bacitracin (Bacitracin -) 1 applic TP BID [facility] Last Admin: 08/02/18 12:31 Dose: 1 applic Calcium Acetate (Phoslo -) 1,334 mg PO TIDCM [facility] Last Admin: 08/02/18 12:30 Dose: 1,334 mg Collagenase (Santyl -) 1 applic TP DAILY [facility] Last Admin: 08/02/18 12:31 Dose: 1 applic Docusate Sodium (Colace -) 100 mg PO DAILY [facility] Last Admin: 08/02/18 12:30 Dose: 100 mg Enoxaparin Sodium (Lovenox -) 30 mg SQ DAILY [facility] Last Admin: 08/02/18 12:30 Dose: 30 mg Daptomycin 1,000 mg/ Sodium (Chloride) 50 mls @ 100 mls/hr IVPB TuThSa [facility]; Protocol Last Admin: 08/02/18 12:17 Dose: 100 mls/hr Insulin Aspart (Novolog Vial Sliding Scale -) 1 vial SQ ACHS [facility]; Protocol Last Admin: 08/02/18 12:58 Dose: Not Given Lidocaine (Lidoderm Patch -) 1 patch TP DAILY [facility] Last Admin: 08/02/18 12:31 Dose: 1 patch Melatonin (Melatonin) 5 mg PO HS PRN PRN Reason: INSOMNIA Last Admin: 08/01/18 22:43 Dose: 5 mg Miscellaneous (Lidoderm Patch Removal) 1 each MC DAILY@2200 [facility] Last Admin: 08/01/18 22:41 Dose: 1 each Oxycodone HCl (Roxicodone -) 10 mg PO Q4H PRN PRN Reason: PAIN LEVEL 7 - 10 Last Admin: 08/02/18 13:29 Dose: 10 mg Pantoprazole Sodium (Protonix -) 40 mg PO BID [facility] Last Admin: 08/02/18 12:31 Dose: 40 mg Polyethylene Glycol (Miralax (For Daily Use) -) 17 gm PO DAILY [facility] Last Admin: 08/02/18 12:31 Dose: 17 gm Quetiapine Fumarate (Seroquel -) 200 mg PO HS [facility] Last Admin: 08/01/18 22:40 Dose: 200 mg Sevelamer Carbonate (Renvela -) 800 mg PO TIDCM [facility] Last Admin: 08/02/18 12:58 Dose: Not Given - Objective Vital Signs: Vital Signs Temperature 97.8 F 08/02/18 14:33 Pulse Rate 74 08/02/18 14:33 Respiratory Rate 20 08/02/18 14:33 Blood Pressure 115/72 08/02/18 14:33 O2 Sat by Pulse Oximetry (%) 96 08/02/18 09:00 Constitutional: Yes: Calm Eyes: Yes: Conjunctiva Clear HENT: Yes: Atraumatic Neck: Yes: Supple Cardiovascular: Yes: S1, S2 Respiratory: Yes: CTA Bilaterally Gastrointestinal: Yes: Soft, Abdomen, Obese, Other (dressing in place) Genitourinary: Yes: WNL Musculoskeletal: Yes: WNL Edema: No Neurological: Yes: Oriented Psychiatric: Yes: Oriented Labs: CBC, BMP 08/02/18 08:40 08/02/18 08:40 INR, PTT INR 1.16 (0.83-1.09) H 07/21/18 19:45 Problem List - Problems (1) ESRD (end stage renal disease) Code(s): N18.6 - END STAGE RENAL DISEASE Assessment/Plan Current Medications Generic Name Dose Route Start Last Admin Trade Name Freq PRN Reason Stop Dose Admin Acetaminophen 650 mg 07/22/18 07:47 08/02/18 13:29 Tylenol - PO 650 mg Q4H PRN Administration PAIN 1-3 Alprazolam 0.25 mg 07/31/18 09:14 08/01/18 22:43 Xanax - PO 0.25 mg BID PRN Administration ANXIETY Amitriptyline HCl 100 mg 07/22/18 10:00 08/02/18 12:30 Elavil - PO 100 mg DAILY [facility] Administration Amoxicillin/Clavulanate Potassium 1 tab 07/23/18 22:00 08/01/18 22:41 Augmentin - 875mg Tablet PO 1 tab HS [facility] Administration Aspirin 81 mg 07/22/18 10:00 08/02/18 12:30 Ecotrin - PO 81 mg DAILY [facility] Administration Atorvastatin Calcium 20 mg 07/22/18 22:00 08/01/18 22:41 Lipitor - PO 20 mg HS [facility] Administration Bacitracin 1 applic 07/25/18 22:00 08/02/18 12:31 Bacitracin - TP 1 applic BID [facility] Administration Calcium Acetate 1,334 mg 07/22/18 12:00 08/02/18 12:30 Phoslo - PO 1,334 mg TIDCM [facility] Administration Collagenase 1 applic 07/29/18 16:10 08/02/18 12:31 Santyl - TP 1 applic DAILY [facility] Administration Docusate Sodium 100 mg 07/22/18 10:00 08/02/18 12:30 Colace - PO 100 mg DAILY [facility] Administration Enoxaparin Sodium 30 mg 07/22/18 10:00 08/02/18 12:30 Lovenox - SQ 30 mg DAILY [facility] Administration Daptomycin 1,000 mg/ Sodium 50 mls @ 100 mls/hr 07/31/18 10:00 08/02/18 12:17 Chloride IVPB 100 mls/hr TuThSa [facility] Administration Protocol Insulin Aspart 1 vial 07/22/18 11:00 08/02/18 12:58 Novolog Vial Sliding Scale - SQ Not Given ACHS [facility] Protocol Lidocaine 1 patch 07/26/18 10:00 08/02/18 12:31 Lidoderm Patch - TP 1 patch DAILY [facility] Administration Melatonin 5 mg 07/27/18 01:41 08/01/18 22:43 Melatonin PO 5 mg HS PRN Administration INSOMNIA Miscellaneous 1 each 07/26/18 22:00 08/01/18 22:41 Lidoderm Patch Removal MC 1 each DAILY@2200 [facility] Administration Oxycodone HCl 10 mg 07/29/18 12:49 08/02/18 13:29 Roxicodone - PO 10 mg Q4H PRN Administration PAIN LEVEL 7 - 10 Pantoprazole Sodium 40 mg 07/22/18 10:00 08/02/18 12:31 Protonix - PO 40 mg BID [facility] Administration Polyethylene Glycol 17 gm 07/28/18 10:00 08/02/18 12:31 Miralax (For Daily Use) - PO 17 gm DAILY [facility] Administration Quetiapine Fumarate 200 mg 07/22/18 22:00 08/01/18 22:40 Seroquel - PO 200 mg HS [facility] Administration Sevelamer Carbonate 800 mg 07/22/18 08:00 08/02/18 12:58 Renvela - PO Not Given TIDCM [facility] Impression 1. ESRD 2. abdominal pain 3. sleep apnea 4. htn 5. dm 6. asthma 7. obesity 8. anxiety 9. hx of acute psychosis/delusions 10. hx hyperkalemia Plan - HD today - abx per ID - pt has surgery follow up next week on Monday - hd is set up as outpt - renal diet - discussed with attending - will follow
[2018-08-02] MEDS: ATORVASTATIN CA 20 MG TABLET (FP) PO SCH (21:56)
[2018-08-02] MEDS: AMOX TR/POT CLAV 875MG/125MG TABLETS (FP) PO SCH (21:56)
[2018-08-02] MEDS: ALPRAZolam 0.25 MG TABLET PO PRN (21:56)
[2018-08-02] MEDS: MELATONIN 5 MG TABLETS PO PRN (21:57)
[2018-08-02] MEDS: QUEtiapine FUMARATE 200 MG TABLET PO SCH (22:01)
[2018-08-03] MEDS: BACITRACIN 15 GM TUBE TOPICAL OINTMENT TP SCH ×3 (00:13→22:42)
[2018-08-03] MEDS: LIDOCAINE PATCH REMOVAL MC SCH ×2 (00:13→22:26)
[2018-08-03] MEDS: INSULIN SLIDING SCALE (NOVOLOG) 1 VIAL SQ SCH ×5 (00:14→22:26)
[2018-08-03] MEDS: oxyCODONE HCL 5 MG TABLET PO PRN ×3 (06:22→22:31)
[2018-08-03] MEDS: ACETAMINOPHEN 325 MG TABLET (FP) PO PRN ×3 (06:41→22:31)
[2018-08-03] MEDS: SEVELAMER CARBONATE 800 MG TAB (FP) PO SCH ×3 (07:52→16:41)
[2018-08-03] MEDS: CALCIUM ACETATE 667 MG CAPSULE (FP) PO SCH ×3 (08:20→16:42)
--- NOTE | 2018-08-03 08:56 | PN ---
Progress Note (short form) - Note Progress Note: no change, has been stable CBC, BMP CBC, BMP 08/02/18 08:40 08/02/18 08:40 Vital Signs Period Temp Pulse Resp BP Sys/Chan Pulse Ox Last 24 Hr 97.8 F-98.1 F 67-88 18-20 110-150/65-79 96-100 s1s2 rrr lungs cta abd retention sutures with small area of opening,bloody crust, otherwise without sign of infection right arm open wound with packing-dry, slowly healing abd soft +BS no edema awake alert, mentation is at baseline, no focal deficit c/o vaginal itch ESRD recent open surgery removal of infected abdominal mesh recent bacteremia MRSA+ 1 month ago morbid obesity resolved metabolic encephalopathy due to missed hd, and percocet overuse wound care abx as oredered HD ,mon,sat PT add Consults greatly appreciated iv Daptomycin to complete on 08.07.18Monday called [facility] surgical clinic [phone] rescheduled appointment for 08.08.18Monday at 1pm id home with vns on monday
[2018-08-03] MEDS: LIDOCAINE 5% TOPICAL PATCH TP SCH (10:07)
[2018-08-03] MEDS: PANTOPRAZOLE 40 MG TABLET (FP) PO SCH ×2 (10:07→22:26)
[2018-08-03] MEDS: AMITRIPTYLINE HCL 25 MG TABLET (FP) PO SCH (10:09)
[2018-08-03] MEDS: DOCUSATE SODIUM 100 MG CAPSULE (FP) PO SCH (10:10)
[2018-08-03] MEDS: ASPIRIN COATED 81 MG TABLET.EC PO SCH (10:10)
[2018-08-03] MEDS: COLLAGENASE CLOSTRIDIUM HIST. 30 GRAMS TUBE TP SCH (10:10)
[2018-08-03] MEDS: POLYETHYLENE GLYCOL 3350 119 GM BTL PO SCH (10:10)
[2018-08-03] MEDS: ENOXAPARIN NA (PORCINE) 30 MG/0.3 ML DISP.SYRIN SQ SCH (10:10)
--- NOTE | 2018-08-03 11:59 | PN ---
Progress Note, Physician History of Present Illness: Pt seen and examined at bedside. She is awake and alert. She denies shortness of breath. - Current Medication List Current Medications: Active Medications Acetaminophen (Tylenol -) 650 mg PO Q4H PRN PRN Reason: PAIN 1-3 Last Admin: 08/03/18 06:41 Dose: 650 mg Alprazolam (Xanax -) 0.25 mg PO BID PRN PRN Reason: ANXIETY Last Admin: 08/02/18 21:56 Dose: 0.25 mg Amitriptyline HCl (Elavil -) 100 mg PO DAILY [facility] Last Admin: 08/03/18 10:09 Dose: 100 mg Amoxicillin/Clavulanate Potassium (Augmentin - 875mg Tablet) 1 tab PO HS [facility] Last Admin: 08/02/18 21:56 Dose: 1 tab Aspirin (Ecotrin -) 81 mg PO DAILY [facility] Last Admin: 08/03/18 10:10 Dose: 81 mg Atorvastatin Calcium (Lipitor -) 20 mg PO HS [facility] Last Admin: 08/02/18 21:56 Dose: 20 mg Bacitracin (Bacitracin -) 1 applic TP BID [facility] Last Admin: 08/03/18 10:10 Dose: 1 applic Calcium Acetate (Phoslo -) 1,334 mg PO TIDCM [facility] Last Admin: 08/03/18 11:25 Dose: 1,334 mg Collagenase (Santyl -) 1 applic TP DAILY [facility] Last Admin: 08/03/18 10:10 Dose: 1 applic Docusate Sodium (Colace -) 100 mg PO DAILY [facility] Last Admin: 08/03/18 10:10 Dose: 100 mg Enoxaparin Sodium (Lovenox -) 30 mg SQ DAILY [facility] Last Admin: 08/03/18 10:10 Dose: 30 mg Daptomycin 1,000 mg/ Sodium (Chloride) 50 mls @ 100 mls/hr IVPB TuThSa [facility]; Protocol Last Admin: 08/02/18 12:17 Dose: 100 mls/hr Insulin Aspart (Novolog Vial Sliding Scale -) 1 vial SQ ACHS [facility]; Protocol Last Admin: 08/03/18 11:32 Dose: Not Given Lidocaine (Lidoderm Patch -) 1 patch TP DAILY [facility] Last Admin: 08/03/18 10:07 Dose: 1 patch Melatonin (Melatonin) 5 mg PO HS PRN PRN Reason: INSOMNIA Last Admin: 08/02/18 21:57 Dose: 5 mg Miconazole Nitrate (Miconazole 3) 200 mg PV [facility] Stop: 08/05/18 22:01 Miscellaneous (Lidoderm Patch Removal) 1 each MC DAILY@2200 [facility] Last Admin: 08/03/18 00:13 Dose: 1 each Oxycodone HCl (Roxicodone -) 10 mg PO Q4H PRN PRN Reason: PAIN LEVEL 7 - 10 Last Admin: 08/03/18 06:22 Dose: 10 mg Pantoprazole Sodium (Protonix -) 40 mg PO BID [facility] Last Admin: 08/03/18 10:07 Dose: 40 mg Polyethylene Glycol (Miralax (For Daily Use) -) 17 gm PO DAILY [facility] Last Admin: 08/03/18 10:10 Dose: 17 gm Quetiapine Fumarate (Seroquel -) 200 mg PO [facility] Last Admin: 08/02/18 22:01 Dose: 200 mg Sevelamer Carbonate (Renvela -) 800 mg PO TIDCM [facility] Last Admin: 08/03/18 11:25 Dose: Not Given - Objective Vital Signs: Vital Signs Temperature 98.1 F 08/03/18 01:41 Pulse Rate 80 08/03/18 01:41 Respiratory Rate 20 08/03/18 01:41 Blood Pressure 126/70 08/03/18 01:41 O2 Sat by Pulse Oximetry (%) 100 08/03/18 09:00 Constitutional: Yes: Calm Eyes: Yes: Conjunctiva Clear HENT: Yes: Atraumatic Neck: Yes: Supple Cardiovascular: Yes: S1, S2 Respiratory: Yes: CTA Bilaterally Gastrointestinal: Yes: Soft, Other (dressing in place) Genitourinary: Yes: WNL Musculoskeletal: Yes: WNL Edema: No Neurological: Yes: Oriented Psychiatric: Yes: Oriented Labs: CBC, BMP 08/02/18 08:40 08/02/18 08:40 INR, PTT INR 1.16 (0.83-1.09) H 07/21/18 19:45 Problem List - Problems (1) ESRD (end stage renal disease) Code(s): N18.6 - END STAGE RENAL DISEASE Assessment/Plan Current Medications Generic Name Dose Route Start Last Admin Trade Name Freq PRN Reason Stop Dose Admin Acetaminophen 650 mg 07/22/18 07:47 08/03/18 06:41 Tylenol - PO 650 mg Q4H PRN Administration PAIN 1-3 Alprazolam 0.25 mg 07/31/18 09:14 08/02/18 21:56 Xanax - PO 0.25 mg BID PRN Administration ANXIETY Amitriptyline HCl 100 mg 07/22/18 10:00 08/03/18 10:09 Elavil - PO 100 mg DAILY [facility] Administration Amoxicillin/Clavulanate Potassium 1 tab 07/23/18 22:00 08/02/18 21:56 Augmentin - 875mg Tablet PO 1 tab HS [facility] Administration Aspirin 81 mg 07/22/18 10:00 08/03/18 10:10 Ecotrin - PO 81 mg DAILY [facility] Administration Atorvastatin Calcium 20 mg 07/22/18 22:00 08/02/18 21:56 Lipitor - PO 20 mg HS [facility] Administration Bacitracin 1 applic 07/25/18 22:00 08/03/18 10:10 Bacitracin - TP 1 applic BID [facility] Administration Calcium Acetate 1,334 mg 07/22/18 12:00 08/03/18 11:25 Phoslo - PO 1,334 mg TIDCM [facility] Administration Collagenase 1 applic 07/29/18 16:10 08/03/18 10:10 Santyl - TP 1 applic DAILY [facility] Administration Docusate Sodium 100 mg 07/22/18 10:00 08/03/18 10:10 Colace - PO 100 mg DAILY [facility] Administration Enoxaparin Sodium 30 mg 07/22/18 10:00 08/03/18 10:10 Lovenox - SQ 30 mg DAILY [facility] Administration Daptomycin 1,000 mg/ Sodium 50 mls @ 100 mls/hr 07/31/18 10:00 08/02/18 12:17 Chloride IVPB 100 mls/hr TuThSa [facility] Administration Protocol Insulin Aspart 1 vial 07/22/18 11:00 08/03/18 11:32 Novolog Vial Sliding Scale - SQ Not Given ACHS [facility] Protocol Lidocaine 1 patch 07/26/18 10:00 08/03/18 10:07 Lidoderm Patch - TP 1 patch DAILY [facility] Administration Melatonin 5 mg 07/27/18 01:41 08/02/18 21:57 Melatonin PO 5 mg HS PRN Administration INSOMNIA Miconazole Nitrate 200 mg 08/03/18 22:00 Miconazole 3 PV 08/05/18 22:01 HS [facility] Miscellaneous 1 each 07/26/18 22:00 08/03/18 00:13 Lidoderm Patch Removal MC 1 each DAILY@2200 [facility] Administration Oxycodone HCl 10 mg 07/29/18 12:49 08/03/18 06:22 Roxicodone - PO 10 mg Q4H PRN Administration PAIN LEVEL 7 - 10 Pantoprazole Sodium 40 mg 07/22/18 10:00 08/03/18 10:07 Protonix - PO 40 mg BID [facility] Administration Polyethylene Glycol 17 gm 07/28/18 10:00 08/03/18 10:10 Miralax (For Daily Use) - PO 17 gm DAILY [facility] Administration Quetiapine Fumarate 200 mg 07/22/18 22:00 08/02/18 22:01 Seroquel - PO 200 mg HS [facility] Administration Sevelamer Carbonate 800 mg 07/22/18 08:00 08/03/18 11:25 Renvela - PO Not Given TIDCM [facility] Impression 1. ESRD 2. abdominal pain 3. sleep apnea 4. htn 5. dm 6. asthma 7. obesity 8. anxiety 9. hx of acute psychosis/delusions 10. hx hyperkalemia Plan - HD tomorrow - orders written - pt has surgery follow up next week on Monday - hd is set up as outpt at [facility] - renal diet - will follow
[2018-08-03 15:14] VITALS: BMI 30.7
[2018-08-03] MEDS ORDERED: MICONAZOLE NITRATE 100 MG SUPP SUPP.VAG PV SCH (22:00)
[2018-08-03] MEDS ORDERED: MICONAZOLE NITRATE 200 MG VAGINAL SUPPOSITORY PV SCH (22:00)
[2018-08-03] MEDS: AMOX TR/POT CLAV 875MG/125MG TABLETS (FP) PO SCH (22:26)
[2018-08-03] MEDS: QUEtiapine FUMARATE 200 MG TABLET PO SCH (22:26)
[2018-08-03] MEDS: ATORVASTATIN CA 20 MG TABLET (FP) PO SCH (22:26)
[2018-08-03] MEDS: MICONAZOLE NITRATE 200 MG VAGINAL SUPPOSITORY PV SCH (22:26)
[2018-08-03] MEDS: ALPRAZolam 0.25 MG TABLET PO PRN (22:31)
[2018-08-03] MEDS: MELATONIN 5 MG TABLETS PO PRN (22:31)
[2018-08-04] MEDS: INSULIN SLIDING SCALE (NOVOLOG) 1 VIAL SQ SCH ×4 (06:29→22:23)
--- NOTE | 2018-08-04 08:06 | PN ---
Progress Note (short form) - Note Progress Note: no change, has been stable s1s2 rrr lungs cta abd retention sutures with small area of opening,bloody crust, otherwise without sign of infection right arm open wound with packing-dry, slowly healing abd soft +BS no edema awake alert, mentation is at baseline, no focal deficit c/o vaginal itch removed small suture from old picc line at upper chest wall ESRD recent open surgery removal of infected abdominal mesh recent bacteremia MRSA+ 1 month ago morbid obesity resolved metabolic encephalopathy due to missed hd, and percocet overuse wound care abx as oredered HD ,mon,sat PT add Consults greatly appreciated iv Daptomycin to complete on 08.07.18Monday called [facility] surgical clinic [phone] rescheduled appointment for 08.08.18Monday at 1pm dc home with vns on monday
[2018-08-04] MEDS ORDERED: SODIUM CHLORIDE 250 ML IV PRN (08:32)
[2018-08-04] MEDS ORDERED: HEPARIN NA (PORCINE) 5,000 UNITS/ML 1ML VIAL IVPUSH ONE (09:00)
[2018-08-04 09:40] LABS: HEMOGLOBIN 9.9 GM/dL (10.7-15.3); MCH 30.3 pg (25.7-33.7); MEAN CELL VOLUME 91.8 fl (80-96); PLATELET COUNT 162 K/MM3 (134-434); RBC 3.27 M/mm3 (3.60-5.2); RDW 16.8 % (11.6-15.6); WHITE BLOOD COUNT 4.3 K/mm3 (4.0-10.0)
[2018-08-04] MEDS ORDERED: EPOETIN ALFA 10,000 UNIT/1 ML VIAL IVPUSH ONE (10:00)
[2018-08-04 10:11] LABS: ANION GAP 8 MMOL/L (8-16); BLOOD UREA NITROGEN 42 mg/dL (7-18); CALCIUM 8.7 mg/dL (8.5-10.1); CHLORIDE 97 mmol/L (98-107); CO2 28 mmol/L (21-32); CREATININE 7.1 mg/dL (0.55-1.3); GLUCOSE,RANDOM 72 mg/dL (74-106); POTASSIUM 5.4 mmol/L (3.5-5.1); SODIUM 133 mmol/L (136-145)
[2018-08-04] MEDS: CALCIUM ACETATE 667 MG CAPSULE (FP) PO SCH ×3 (10:20→17:32)
[2018-08-04] MEDS: SEVELAMER CARBONATE 800 MG TAB (FP) PO SCH ×4 (10:20→17:33)
[2018-08-04] MEDS: DAPTOMYCIN 1,000 MG in SODIUM CHLORIDE 50 ML IVPB SCH (12:09)
[2018-08-04] MEDS: LIDOCAINE 5% TOPICAL PATCH TP SCH (13:19)
[2018-08-04] MEDS: oxyCODONE HCL 5 MG TABLET PO PRN ×3 (13:19→22:15)
[2018-08-04] MEDS: POLYETHYLENE GLYCOL 3350 119 GM BTL PO SCH (13:20)
[2018-08-04] MEDS: DOCUSATE SODIUM 100 MG CAPSULE (FP) PO SCH (13:20)
[2018-08-04] MEDS: PANTOPRAZOLE 40 MG TABLET (FP) PO SCH ×2 (13:20→22:14)
[2018-08-04] MEDS: ASPIRIN COATED 81 MG TABLET.EC PO SCH (13:20)
[2018-08-04] MEDS: AMITRIPTYLINE HCL 25 MG TABLET (FP) PO SCH (13:20)
[2018-08-04] MEDS: ENOXAPARIN NA (PORCINE) 30 MG/0.3 ML DISP.SYRIN SQ SCH (13:21)
[2018-08-04] MEDS: BACITRACIN 15 GM TUBE TOPICAL OINTMENT TP SCH ×2 (13:21→22:17)
[2018-08-04] MEDS: COLLAGENASE CLOSTRIDIUM HIST. 30 GRAMS TUBE TP SCH (13:22)
--- NOTE | 2018-08-04 14:01 | PN ---
Progress Note (short form) - Note Progress Note: RENAL Pt is awake and alert comfortable just had hd Last Vital Signs Temp Pulse Resp BP Pulse Ox 98.7 F 81 18 110/60 98 08/04/18 09:00 08/04/18 12:40 08/04/18 12:40 08/04/18 12:40 08/03/18 21:00 lungs clear cvs s1s2 rr abd soft dressing is clean and intact ext no edema neuro a+ox3 CBC, BMP 08/04/18 09:05 08/04/18 09:05 Current Medications Generic Name Dose Route Start Last Admin Trade Name Freq PRN Reason Stop Dose Admin Acetaminophen 650 mg 07/22/18 07:47 08/03/18 22:31 Tylenol - PO 650 mg Q4H PRN Administration PAIN 1-3 Alprazolam 0.25 mg 07/31/18 09:14 08/03/18 22:31 Xanax - PO 0.25 mg BID PRN Administration ANXIETY Amitriptyline HCl 100 mg 07/22/18 10:00 08/04/18 13:20 Elavil - PO 100 mg DAILY [facility] Administration Amoxicillin/Clavulanate Potassium 1 tab 07/23/18 22:00 08/03/18 22:26 Augmentin - 875mg Tablet PO 1 tab HS [facility] Administration Aspirin 81 mg 07/22/18 10:00 08/04/18 13:20 Ecotrin - PO 81 mg DAILY [facility] Administration Atorvastatin Calcium 20 mg 07/22/18 22:00 08/03/18 22:26 Lipitor - PO 20 mg HS [facility] Administration Bacitracin 1 applic 07/25/18 22:00 08/04/18 13:21 Bacitracin - TP 1 applic BID [facility] Administration Calcium Acetate 1,334 mg 07/22/18 12:00 08/04/18 13:20 Phoslo - PO 1,334 mg TIDCM [facility] Administration Collagenase 1 applic 07/29/18 16:10 08/04/18 13:22 Santyl - TP 1 applic DAILY [facility] Administration Docusate Sodium 100 mg 07/22/18 10:00 08/04/18 13:20 Colace - PO 100 mg DAILY [facility] Administration Enoxaparin Sodium 30 mg 07/22/18 10:00 08/04/18 13:21 Lovenox - SQ 30 mg DAILY [facility] Administration Daptomycin 1,000 mg/ Sodium 50 mls @ 100 mls/hr 07/31/18 10:00 08/04/18 12:09 Chloride IVPB 100 mls/hr TuThSa [facility] Administration Protocol Sodium Chloride 250 mls @ 3,000 mls/hr 08/04/18 08:32 Normal Saline - IV 08/05/18 08:31 PRN PRN Hypotension during Dialysis Insulin Aspart 1 vial 07/22/18 11:00 08/04/18 13:33 Novolog Vial Sliding Scale - SQ Not Given ACHS [facility] Protocol Lidocaine 1 patch 07/26/18 10:00 08/04/18 13:19 Lidoderm Patch - TP 1 patch DAILY [facility] Administration Melatonin 5 mg 07/27/18 01:41 08/03/18 22:31 Melatonin PO 5 mg HS PRN Administration INSOMNIA Miconazole Nitrate 200 mg 08/03/18 22:00 08/03/18 22:26 Miconazole 3 PV 08/05/18 22:01 200 mg HS [facility] Administration Miscellaneous 1 each 07/26/18 22:00 08/03/18 22:26 Lidoderm Patch Removal MC 1 each DAILY@2200 [facility] Administration Oxycodone HCl 10 mg 07/29/18 12:49 08/04/18 13:19 Roxicodone - PO 10 mg Q4H PRN Administration PAIN LEVEL 7 - 10 Pantoprazole Sodium 40 mg 07/22/18 10:00 08/04/18 13:20 Protonix - PO 40 mg BID [facility] Administration Polyethylene Glycol 17 gm 07/28/18 10:00 08/04/18 13:20 Miralax (For Daily Use) - PO 17 gm DAILY [facility] Administration Quetiapine Fumarate 200 mg 07/22/18 22:00 08/03/18 22:26 Seroquel - PO 200 mg HS [facility] Administration Sevelamer Carbonate 800 mg 07/22/18 08:00 08/04/18 13:32 Renvela - PO Not Given TIDCM [facility] Impression 1. ESRD 2. abdominal pain- s/p exploration at [facility] 3. sleep apnea 4. htn 5. dm 6. asthma 7. obesity 8. anxiety 9. hx of acute psychosis/delusions 10. hx hyperkalemia Plan was HD today continue antibiotics per ID recommendations can hold renvela and monitor phos MV
[2018-08-04] MEDS: ACETAMINOPHEN 325 MG TABLET (FP) PO PRN ×2 (17:32→22:14)
[2018-08-04] MEDS ORDERED: INSULIN (NOVOLOG) ASPART 100 UNITS/ML 10ML VIAL ONE (19:37)
[2018-08-04] MEDS ORDERED: PT OWN MED DRAWER 7, Y5N ONE (19:37)
[2018-08-04] MEDS: ATORVASTATIN CA 20 MG TABLET (FP) PO SCH (22:14)
[2018-08-04] MEDS: ALPRAZolam 0.25 MG TABLET PO PRN (22:15)
[2018-08-04] MEDS: MICONAZOLE NITRATE 200 MG VAGINAL SUPPOSITORY PV SCH (22:16)
[2018-08-04] MEDS: QUEtiapine FUMARATE 200 MG TABLET PO SCH (22:16)
[2018-08-04] MEDS: AMOX TR/POT CLAV 875MG/125MG TABLETS (FP) PO SCH (22:17)
[2018-08-04] MEDS: LIDOCAINE PATCH REMOVAL MC SCH (22:17)
[2018-08-05] MEDS: INSULIN SLIDING SCALE (NOVOLOG) 1 VIAL SQ SCH ×4 (06:19→22:12)
[2018-08-05] MEDS: ASPIRIN COATED 81 MG TABLET.EC PO SCH (10:16)
[2018-08-05] MEDS: AMITRIPTYLINE HCL 25 MG TABLET (FP) PO SCH (10:16)
[2018-08-05] MEDS: DOCUSATE SODIUM 100 MG CAPSULE (FP) PO SCH (10:16)
[2018-08-05] MEDS: LIDOCAINE 5% TOPICAL PATCH TP SCH (10:16)
[2018-08-05] MEDS: PANTOPRAZOLE 40 MG TABLET (FP) PO SCH ×2 (10:16→21:53)
[2018-08-05] MEDS: COLLAGENASE CLOSTRIDIUM HIST. 30 GRAMS TUBE TP SCH (10:17)
[2018-08-05] MEDS: BACITRACIN 15 GM TUBE TOPICAL OINTMENT TP SCH ×2 (10:17→22:20)
[2018-08-05] MEDS: ENOXAPARIN NA (PORCINE) 30 MG/0.3 ML DISP.SYRIN SQ SCH (10:17)
[2018-08-05] MEDS: SEVELAMER CARBONATE 800 MG TAB (FP) PO SCH ×3 (10:17→17:57)
[2018-08-05] MEDS: POLYETHYLENE GLYCOL 3350 119 GM BTL PO SCH (10:19)
[2018-08-05] MEDS: CALCIUM ACETATE 667 MG CAPSULE (FP) PO SCH ×3 (10:19→17:58)
[2018-08-05] MEDS ORDERED: PT OWN MED DRAWER 7, Y5N ONE (11:05)
[2018-08-05] MEDS: ACETAMINOPHEN 325 MG TABLET (FP) PO PRN ×3 (12:53→21:53)
[2018-08-05] MEDS: oxyCODONE HCL 5 MG TABLET PO PRN ×3 (12:53→21:48)
--- NOTE | 2018-08-05 19:30 | PN ---
Progress Note (short form) - Note Progress Note: Progress Note (short form) no change, has been stable Vital Signs Period Temp Pulse Resp BP Sys/Chan Pulse Ox Last 24 Hr 97.6 F-98.3 F 73-88 18-20 118-145/69-90 97-97 s1s2 rrr lungs cta abd retention sutures with small area of opening,bloody crust, otherwise without sign of infection right arm open wound with packing-dry, slowly healing abd soft +BS no edema awake alert, mentation is at baseline, no focal deficit c/o vaginal itch removed small suture from old picc line at upper chest wall Laboratory Results - last 24 hr 08/04/18 08/05/18 08/05/18 22:22 05:53 11:47 POC Glucometer 89 105 105 08/05/18 16:51 POC Glucometer 77 ESRD recent open surgery removal of infected abdominal mesh recent bacteremia MRSA+ 1 month ago morbid obesity resolved metabolic encephalopathy due to missed hd, and percocet overuse wound care abx as oredered HD ,brandi,sat PT add Consults greatly appreciated iv Daptomycin to complete on 08.07.18Monday called [facility] surgical clinic [phone] rescheduled appointment for 08.08.18Monday at 1pm dc home with vns on monday
[2018-08-05] MEDS: ATORVASTATIN CA 20 MG TABLET (FP) PO SCH (21:53)
[2018-08-05] MEDS: MELATONIN 5 MG TABLETS PO PRN (21:53)
[2018-08-05] MEDS: ALPRAZolam 0.25 MG TABLET PO PRN (21:53)
[2018-08-05] MEDS: QUEtiapine FUMARATE 200 MG TABLET PO SCH (21:54)
[2018-08-05] MEDS: LIDOCAINE PATCH REMOVAL MC SCH (22:20)
[2018-08-05] MEDS: MICONAZOLE NITRATE 200 MG VAGINAL SUPPOSITORY PV SCH (22:20)
[2018-08-06] MEDS: INSULIN SLIDING SCALE (NOVOLOG) 1 VIAL SQ SCH ×4 (06:07→21:17)
[2018-08-06] MEDS: SEVELAMER CARBONATE 800 MG TAB (FP) PO SCH ×3 (07:59→17:43)
--- NOTE | 2018-08-06 08:33 | PN ---
Progress Note (short form) - Note Progress Note: no change, has been stable Vital Signs Period Temp Pulse Resp BP Sys/Chan Pulse Ox Last 24 Hr 97.6 F-98.3 F 73-88 18-20 133-145/70-90 97-100 s1s2 rrr lungs cta abd retention sutures with small area of opening,healing right arm open wound with packing-dry, healing, closing well abd soft +BS no edema awake alert, mentation is at baseline, no focal deficit ESRD open surgery removal of infected abdominal mesh approx 6 weeks ago recent bacteremia MRSA+ 1 month ago morbid obesity resolved metabolic encephalopathy due to missed hd, and percocet overuse wound care abx as oredered HD ,brandi,sat PT Consults greatly appreciated iv Daptomycin to complete on 08.07.18Monday called [facility] surgical clinic [phone] rescheduled appointment for 08.08.18Monday at 1pm mi home with vns on tomorrow
[2018-08-06] MEDS: CALCIUM ACETATE 667 MG CAPSULE (FP) PO SCH ×3 (09:14→17:42)
[2018-08-06] MEDS: oxyCODONE HCL 5 MG TABLET PO PRN ×4 (09:49→22:07)
[2018-08-06] MEDS: ENOXAPARIN NA (PORCINE) 30 MG/0.3 ML DISP.SYRIN SQ SCH (09:49)
[2018-08-06] MEDS: AMITRIPTYLINE HCL 25 MG TABLET (FP) PO SCH (09:50)
[2018-08-06] MEDS: BACITRACIN 15 GM TUBE TOPICAL OINTMENT TP SCH ×2 (09:50→21:17)
[2018-08-06] MEDS: PANTOPRAZOLE 40 MG TABLET (FP) PO SCH ×2 (09:50→21:17)
[2018-08-06] MEDS: ACETAMINOPHEN 325 MG TABLET (FP) PO PRN ×4 (09:50→22:09)
[2018-08-06] MEDS: DOCUSATE SODIUM 100 MG CAPSULE (FP) PO SCH (09:50)
[2018-08-06] MEDS: LIDOCAINE 5% TOPICAL PATCH TP SCH (09:51)
[2018-08-06] MEDS: ASPIRIN COATED 81 MG TABLET.EC PO SCH (09:51)
[2018-08-06] MEDS: COLLAGENASE CLOSTRIDIUM HIST. 30 GRAMS TUBE TP SCH (09:51)
[2018-08-06] MEDS: POLYETHYLENE GLYCOL 3350 119 GM BTL PO SCH (09:52)
[2018-08-06] MEDS ORDERED: PT OWN MED DRAWER 7, Y5N ONE (17:04)
[2018-08-06] MEDS ORDERED: SODIUM CHLORIDE 250 ML IV PRN (17:12)
--- NOTE | 2018-08-06 17:12 | PN ---
Progress Note, Physician History of Present Illness: Pt seen and examined at bedside. She is awake and alert. She is eager to go home tomorrow. - Current Medication List Current Medications: Active Medications Acetaminophen (Tylenol -) 650 mg PO Q4H PRN PRN Reason: PAIN 1-3 Last Admin: 08/06/18 13:36 Dose: 650 mg Alprazolam (Xanax -) 0.25 mg PO BID PRN PRN Reason: ANXIETY Last Admin: 08/05/18 21:53 Dose: 0.25 mg Amitriptyline HCl (Elavil -) 100 mg PO DAILY [facility] Last Admin: 08/06/18 09:50 Dose: 100 mg Amoxicillin/Clavulanate Potassium (Augmentin - 500mg Tablet) 1 tab PO DAILY@ 1730 [facility] Aspirin (Ecotrin -) 81 mg PO DAILY [facility] Last Admin: 08/06/18 09:51 Dose: 81 mg Atorvastatin Calcium (Lipitor -) 20 mg PO HS [facility] Last Admin: 08/05/18 21:53 Dose: 20 mg Bacitracin (Bacitracin -) 1 applic TP BID [facility] Last Admin: 08/06/18 09:50 Dose: 1 applic Calcium Acetate (Phoslo -) 1,334 mg PO TIDCM [facility] Last Admin: 08/06/18 13:32 Dose: 1,334 mg Collagenase (Santyl -) 1 applic TP DAILY [facility] Last Admin: 08/06/18 09:51 Dose: 1 applic Docusate Sodium (Colace -) 100 mg PO DAILY [facility] Last Admin: 08/06/18 09:50 Dose: 100 mg Enoxaparin Sodium (Lovenox -) 30 mg SQ DAILY [facility] Last Admin: 08/06/18 09:49 Dose: 30 mg Daptomycin 1,000 mg/ Sodium (Chloride) 50 mls @ 100 mls/hr IVPB TuThSa [facility]; Protocol Last Admin: 08/04/18 12:09 Dose: 100 mls/hr Insulin Aspart (Novolog Vial Sliding Scale -) 1 vial SQ ACHS [facility]; Protocol Last Admin: 08/06/18 13:29 Dose: Not Given Lidocaine (Lidoderm Patch -) 1 patch TP DAILY [facility] Last Admin: 08/06/18 09:51 Dose: Not Given Melatonin (Melatonin) 5 mg PO HS PRN PRN Reason: INSOMNIA Last Admin: 08/05/18 21:53 Dose: 5 mg Miscellaneous (Lidoderm Patch Removal) 1 each MC DAILY@2200 [facility] Last Admin: 08/05/18 22:20 Dose: 1 each Oxycodone HCl (Roxicodone -) 10 mg PO Q4H PRN PRN Reason: PAIN LEVEL 7 - 10 Last Admin: 08/06/18 13:36 Dose: 10 mg Pantoprazole Sodium (Protonix -) 40 mg PO BID [facility] Last Admin: 08/06/18 09:50 Dose: 40 mg Polyethylene Glycol (Miralax (For Daily Use) -) 17 gm PO DAILY [facility] Last Admin: 08/06/18 09:52 Dose: 17 gm Quetiapine Fumarate (Seroquel -) 200 mg PO HS [facility] Last Admin: 08/05/18 21:54 Dose: 200 mg Sevelamer Carbonate (Renvela -) 800 mg PO TIDCM [facility] Last Admin: 08/06/18 13:29 Dose: Not Given - Objective Vital Signs: Vital Signs Temperature 97.5 F L 08/06/18 15:17 Pulse Rate 88 08/06/18 15:17 Respiratory Rate 20 08/06/18 15:17 Blood Pressure 135/95 08/06/18 15:17 O2 Sat by Pulse Oximetry (%) 100 08/06/18 09:00 Constitutional: Yes: Calm Eyes: Yes: Conjunctiva Clear HENT: Yes: Atraumatic Cardiovascular: Yes: S1, S2 Respiratory: Yes: CTA Bilaterally Gastrointestinal: Yes: Normal Bowel Sounds, Soft, Other (dressing in place) Genitourinary: Yes: WNL Musculoskeletal: Yes: WNL Edema: No Integumentary: Yes: Tattoos Neurological: Yes: Oriented Psychiatric: Yes: Oriented Labs: CBC, BMP 08/04/18 09:05 08/04/18 09:05 INR, PTT INR 1.16 (0.83-1.09) H 07/21/18 19:45 Problem List - Problems (1) ESRD (end stage renal disease) Code(s): N18.6 - END STAGE RENAL DISEASE Assessment/Plan Current Medications Generic Name Dose Route Start Last Admin Trade Name Freq PRN Reason Stop Dose Admin Acetaminophen 650 mg 07/22/18 07:47 08/06/18 13:36 Tylenol - PO 650 mg Q4H PRN Administration PAIN 1-3 Alprazolam 0.25 mg 07/31/18 09:14 08/05/18 21:53 Xanax - PO 0.25 mg BID PRN Administration ANXIETY Amitriptyline HCl 100 mg 07/22/18 10:00 08/06/18 09:50 Elavil - PO 100 mg DAILY [facility] Administration Amoxicillin/Clavulanate Potassium 1 tab 08/06/18 17:30 Augmentin - 500mg Tablet PO DAILY@1730 [facility] Aspirin 81 mg 07/22/18 10:00 08/06/18 09:51 Ecotrin - PO 81 mg DAILY [facility] Administration Atorvastatin Calcium 20 mg 07/22/18 22:00 08/05/18 21:53 Lipitor - PO 20 mg HS [facility] Administration Bacitracin 1 applic 07/25/18 22:00 08/06/18 09:50 Bacitracin - TP 1 applic BID [facility] Administration Calcium Acetate 1,334 mg 07/22/18 12:00 08/06/18 13:32 Phoslo - PO 1,334 mg TIDCM [facility] Administration Collagenase 1 applic 07/29/18 16:10 08/06/18 09:51 Santyl - TP 1 applic DAILY [facility] Administration Docusate Sodium 100 mg 07/22/18 10:00 08/06/18 09:50 Colace - PO 100 mg DAILY [facility] Administration Enoxaparin Sodium 30 mg 07/22/18 10:00 08/06/18 09:49 Lovenox - SQ 30 mg DAILY [facility] Administration Daptomycin 1,000 mg/ Sodium 50 mls @ 100 mls/hr 07/31/18 10:00 08/04/18 12:09 Chloride IVPB 100 mls/hr TuTa [facility] Administration Protocol Insulin Aspart 1 vial 07/22/18 11:00 08/06/18 13:29 Novolog Vial Sliding Scale - SQ Not Given ACHS [facility] Protocol Lidocaine 1 patch 07/26/18 10:00 08/06/18 09:51 Lidoderm Patch - TP Not Given DAILY [facility] Melatonin 5 mg 07/27/18 01:41 08/05/18 21:53 Melatonin PO 5 mg HS PRN Administration INSOMNIA Miscellaneous 1 each 07/26/18 22:00 08/05/18 22:20 Lidoderm Patch Removal MC 1 each DAILY@2200 [facility] Administration Oxycodone HCl 10 mg 07/29/18 12:49 08/06/18 13:36 Roxicodone - PO 10 mg Q4H PRN Administration PAIN LEVEL 7 - 10 Pantoprazole Sodium 40 mg 07/22/18 10:00 08/06/18 09:50 Protonix - PO 40 mg BID [facility] Administration Polyethylene Glycol 17 gm 07/28/18 10:00 08/06/18 09:52 Miralax (For Daily Use) - PO 17 gm DAILY [facility] Administration Quetiapine Fumarate 200 mg 07/22/18 22:00 08/05/18 21:54 Seroquel - PO 200 mg HS [facility] Administration Sevelamer Carbonate 800 mg 07/22/18 08:00 08/06/18 13:29 Renvela - PO Not Given TIDCM [facility] Impression 1. ESRD 2. abdominal pain 3. sleep apnea 4. htn 5. dm 6. asthma 7. obesity 8. anxiety 9. hx of acute psychosis/delusions 10. hx hyperkalemia Plan - HD in am - dialyze first shift, spoke to HD nurse - pt has HD set up as outpt - renal diet - will follow
[2018-08-06] MEDS ORDERED: AMOX TR/POT CLAV 500MG/125MG TABLETS (FP) PO SCH (17:30)
[2018-08-06] MEDS ORDERED: ONDANSETRON 4 MG TABLET PO ONE (19:58)
[2018-08-06] MEDS ORDERED: ONDANSETRON 4 MG TABLET PO PRN (19:58)
[2018-08-06] MEDS: ALPRAZolam 0.25 MG TABLET PO PRN (21:16)
[2018-08-06] MEDS: ATORVASTATIN CA 20 MG TABLET (FP) PO SCH (21:17)
[2018-08-06] MEDS: QUEtiapine FUMARATE 200 MG TABLET PO SCH (21:17)
[2018-08-06] MEDS: MELATONIN 5 MG TABLETS PO PRN (21:17)
[2018-08-06] MEDS: LIDOCAINE PATCH REMOVAL MC SCH (21:17)
[2018-08-07] MEDS: INSULIN SLIDING SCALE (NOVOLOG) 1 VIAL SQ SCH ×2 (06:37→12:53)
[2018-08-07] MEDS ORDERED: EPOETIN ALFA 10,000 UNIT/1 ML VIAL IVPUSH ONE (08:15)
[2018-08-07] MEDS ORDERED: HEPARIN NA (PORCINE) 5,000 UNITS/ML 1ML VIAL IVPUSH ONE (08:15)
[2018-08-07] MEDS: CALCIUM ACETATE 667 MG CAPSULE (FP) PO SCH ×2 (08:35→12:42)
[2018-08-07] MEDS: SEVELAMER CARBONATE 800 MG TAB (FP) PO SCH ×2 (08:36→12:42)
[2018-08-07 08:52] VITALS: TEMP 98.1
--- NOTE | 2018-08-07 09:12 | DS ---
Physical Examination Vital Signs: Vital Signs Temperature 98.1 F 08/07/18 08:25 Pulse Rate 78 08/07/18 08:30 Respiratory Rate 18 08/07/18 08:30 Blood Pressure 145/87 08/07/18 08:30 O2 Sat by Pulse Oximetry (%) 95 08/06/18 21:00 Constitutional: Yes: No Distress, Obese Eyes: Yes: Conjunctiva Clear HENT: Yes: Normocephalic Neck: Yes: Trachea Midline Cardiovascular: Yes: Regular Rate and Rhythm Respiratory: Yes: CTA Bilaterally Gastrointestinal: Yes: Normal Bowel Sounds, Soft, Abdomen, Obese Edema: No Wound/Incision: Yes: Clean/Dry (small area of opening is stable, no sign of infection on abdominal wound right arm wound dry based, clean , closing slowly) Psychiatric: Yes: WNL Labs: CBC, BMP 08/04/18 09:05 08/04/18 09:05 Discharge Summary Reason For Visit: FEVER Current Active Problems Fever (Acute) Incisional hernia, without obstruction or gangrene (Acute) Obesity (BMI 30.0-34.9) (Acute) Presence of surgical incision (Acute) Hospital Course: ESRD open surgery removal of infected abdominal mesh approx 6 weeks ago recent bacteremia MRSA+ 6 weeks ago morbid obesity admitted for resolved metabolic encephalopathy due to missed hd, and percocet overuse completed 6 weeks of iv Daptomycin has follow up at [facility] surgical clinic [phone] rescheduled appointment for 08.08.18Monday at 1pm abdominal incision with retention sutures, overall healing well very small spot with skin gap/superficial dehiscence in center keep some gauze tucked into central gap and areas at right sided bolster erosions to manage exudate and keep wounds clean keep area covered daily, but no specific wound care otherwise needed right arm wound dressing - continue Santyl to wound base with 2x2 gauze unfolded and tucked entirely within wound daily, cover with small dry gauze and tape Condition: Guarded - Instructions Diet, Activity, Other Instructions: f/up with or surgical clinic [phone] next appointment for 08.08.18Monday at 1pm id home with vns cont HD Tuesdays, , Saturdays on abdominal wound keep some gauze tucked into central gap and areas at right sided bolster erosions to manage exudate and keep wounds clean keep area covered daily, but no specific wound care otherwise needed also changed right arm wound dressing - continue Santyl to wound base with 2x2 gauze unfolded and tucked entirely within wound daily, cover with small dry gauze and tape Referrals: Elvis Lau MD [Primary Care Provider] - Disposition: [facility] - Home Medications Comprehensive Discharge Medication List: Ambulatory Orders Acetaminophen [Tylenol .Regular Strength -] 650 mg PO Q4H PRN tablet 07/26/18 Amox-Tr/K Cl [Augmentin 875-125mg Tablet -] 1 tab PO HS tablet 07/26/18 Bacitracin - [Bacitracin Topical Ointment -] 1 applic TP BID tube 07/26/18 Collagenase Clostridium Hist. [Santyl -] 1 applic TP DAILY tube 07/26/18 Daptomycin [Cubicin (Restricted To Id) -] 1,000 mg IVPB Q2D vial 07/26/18 Insulin Sliding Scale [Novolog Vial Sliding Scale -] 1 vial SQ ACHS units 07/26 Lidocaine 5% Patch [Lidoderm -] 1 patch TP DAILY patch 07/26/18 oxyCODONE HCL [Roxicodone -] 5 mg PO Q4H PRN #120 tablet MDD 30 mg 07/26/18 Amitriptyline HCl [Elavil -] 100 mg PO DAILY #30 tablet 08/06/18 Aspirin Coated [Ecotrin -] 81 mg PO DAILY #30 tablet.ec 08/06/18 Calcium Acetate 2 cap PO TID #270 tablet 08/06/18 Collagenase Clostridium Hist. [Santyl -] 1 applic TP DAILY #1 tube 08/06/18 Docusate Sodium [Colace] 100 mg PO DAILY #90 capsule 08/06/18 Enoxaparin [Lovenox -] 30 mg SQ DAILY #30 disp.syrin 08/06/18 Esomeprazole Magnesium 40 mg PO BID #60 capsule. 08/06/18 Oxycodone HCl/Acetaminophen [Percocet 10-325 mg Tablet] 1 each PO Q8H PRN #90 tablet MDD 3 08/06/18 Polyethylene Glycol 3350 [Miralax 119 gm Btl -] 17 gm PO DAILY PRN #1 bottle Quetiapine Fumarate [Seroquel -] 200 mg PO HS #30 tablet 08/06/18 Sevelamer Carbonate [Renvela -] 800 mg PO TIDCM #90 tab 08/06/18 Simvastatin 40 mg PO DAILY #30 tablet 08/06/18
[2018-08-07 12:13] VITALS: BP 122/70; PULSE 81
--- NOTE | 2018-08-07 12:28 | PN ---
Progress Note, Physician History of Present Illness: Pt seen and examined at bedside. She is awake and alert. She is tolerating HD. She is eager to go home. - Current Medication List Current Medications: Active Medications Acetaminophen (Tylenol -) 650 mg PO Q4H PRN PRN Reason: PAIN 1-3 Last Admin: 08/06/18 22:09 Dose: 650 mg Alprazolam (Xanax -) 0.25 mg PO BID PRN PRN Reason: ANXIETY Last Admin: 08/06/18 21:16 Dose: 0.25 mg Amitriptyline HCl (Elavil -) 100 mg PO DAILY [facility] Last Admin: 08/06/18 09:50 Dose: 100 mg Amoxicillin/Clavulanate Potassium (Augmentin - 500mg Tablet) 1 tab PO DAILY@ 1730 [facility] Last Admin: 08/06/18 17:42 Dose: 1 tab Aspirin (Ecotrin -) 81 mg PO DAILY [facility] Last Admin: 08/06/18 09:51 Dose: 81 mg Atorvastatin Calcium (Lipitor -) 20 mg PO HS [facility] Last Admin: 08/06/18 21:17 Dose: 20 mg Bacitracin (Bacitracin -) 1 applic TP BID [facility] Last Admin: 08/06/18 21:17 Dose: 1 applic Calcium Acetate (Phoslo -) 1,334 mg PO TIDCM [facility] Last Admin: 08/07/18 08:35 Dose: Not Given Collagenase (Santyl -) 1 applic TP DAILY [facility] Last Admin: 08/06/18 09:51 Dose: 1 applic Docusate Sodium (Colace -) 100 mg PO DAILY [facility] Last Admin: 08/06/18 09:50 Dose: 100 mg Enoxaparin Sodium (Lovenox -) 30 mg SQ DAILY [facility] Last Admin: 08/06/18 09:49 Dose: 30 mg Daptomycin 1,000 mg/ Sodium (Chloride) 50 mls @ 100 mls/hr IVPB TuThSa [facility]; Protocol Last Admin: 08/04/18 12:09 Dose: 100 mls/hr Sodium Chloride (Normal Saline -) 250 mls @ 3,000 mls/hr IV PRN PRN PRN Reason: Hypotension during Dialysis Stop: 08/07/18 17:12 Insulin Aspart (Novolog Vial Sliding Scale -) 1 vial SQ ACHS [facility]; Protocol Last Admin: 08/07/18 06:37 Dose: Not Given Lidocaine (Lidoderm Patch -) 1 patch TP DAILY [facility] Last Admin: 08/06/18 09:51 Dose: Not Given Melatonin (Melatonin) 5 mg PO HS PRN PRN Reason: INSOMNIA Last Admin: 08/06/18 21:17 Dose: 5 mg Miscellaneous (Lidoderm Patch Removal) 1 each MC DAILY@2200 [facility] Last Admin: 08/06/18 21:17 Dose: 1 each Ondansetron HCl (Zofran -) 4 mg PO Q8H PRN PRN Reason: NAUSEA Last Admin: 08/06/18 20:07 Dose: 4 mg Oxycodone HCl (Roxicodone -) 10 mg PO Q4H PRN PRN Reason: PAIN LEVEL 7 - 10 Last Admin: 08/06/18 22:07 Dose: 10 mg Pantoprazole Sodium (Protonix -) 40 mg PO BID [facility] Last Admin: 08/06/18 21:17 Dose: 40 mg Polyethylene Glycol (Miralax (For Daily Use) -) 17 gm PO DAILY [facility] Last Admin: 08/06/18 09:52 Dose: 17 gm Quetiapine Fumarate (Seroquel -) 200 mg PO HS [facility] Last Admin: 08/06/18 21:17 Dose: 200 mg Sevelamer Carbonate (Renvela -) 800 mg PO TIDCM [facility] Last Admin: 08/07/18 08:36 Dose: Not Given - Objective Vital Signs: Vital Signs Temperature 98.1 F 08/07/18 08:25 Pulse Rate 81 08/07/18 12:13 Respiratory Rate 18 08/07/18 12:13 Blood Pressure 122/70 08/07/18 12:13 O2 Sat by Pulse Oximetry (%) 95 08/06/18 21:00 Constitutional: Yes: Calm Eyes: Yes: Conjunctiva Clear HENT: Yes: Atraumatic Cardiovascular: Yes: S1, S2 Respiratory: Yes: CTA Bilaterally Gastrointestinal: Yes: Normal Bowel Sounds, Soft, Other (dressing in place) Genitourinary: Yes: WNL Musculoskeletal: Yes: WNL Edema: No Neurological: Yes: Oriented Psychiatric: Yes: Oriented Labs: CBC, BMP 08/04/18 09:05 08/04/18 09:05 INR, PTT INR 1.16 (0.83-1.09) H 07/21/18 19:45 Problem List - Problems (1) ESRD (end stage renal disease) Code(s): N18.6 - END STAGE RENAL DISEASE Assessment/Plan Current Medications Generic Name Dose Route Start Last Admin Trade Name Amanda PRN Reason Stop Dose Admin Acetaminophen 650 mg 07/22/18 07:47 08/06/18 22:09 Tylenol - PO 650 mg Q4H PRN Administration PAIN 1-3 Alprazolam 0.25 mg 07/31/18 09:14 08/06/18 21:16 Xanax - PO 0.25 mg BID PRN Administration ANXIETY Amitriptyline HCl 100 mg 07/22/18 10:00 08/06/18 09:50 Elavil - PO 100 mg DAILY [facility] Administration Amoxicillin/Clavulanate Potassium 1 tab 08/06/18 17:30 08/06/18 17:42 Augmentin - 500mg Tablet PO 1 tab DAILY@1730 [facility] Administration Aspirin 81 mg 07/22/18 10:00 08/06/18 09:51 Ecotrin - PO 81 mg DAILY [facility] Administration Atorvastatin Calcium 20 mg 07/22/18 22:00 08/06/18 21:17 Lipitor - PO 20 mg HS [facility] Administration Bacitracin 1 applic 07/25/18 22:00 08/06/18 21:17 Bacitracin - TP 1 applic BID [facility] Administration Calcium Acetate 1,334 mg 07/22/18 12:00 08/07/18 08:35 Phoslo - PO Not Given TIDCM [facility] Collagenase 1 applic 07/29/18 16:10 08/06/18 09:51 Santyl - TP 1 applic DAILY [facility] Administration Docusate Sodium 100 mg 07/22/18 10:00 08/06/18 09:50 Colace - PO 100 mg DAILY [facility] Administration Enoxaparin Sodium 30 mg 07/22/18 10:00 08/06/18 09:49 Lovenox - SQ 30 mg DAILY [facility] Administration Daptomycin 1,000 mg/ Sodium 50 mls @ 100 mls/hr 07/31/18 10:00 08/04/18 12:09 Chloride IVPB 100 mls/hr TuThSa [facility] Administration Protocol Sodium Chloride 250 mls @ 3,000 mls/hr 08/06/18 17:12 Normal Saline - IV 08/07/18 17:12 PRN PRN Hypotension during Dialysis Insulin Aspart 1 vial 07/22/18 11:00 08/07/18 06:37 Novolog Vial Sliding Scale - SQ Not Given ACHS [facility] Protocol Lidocaine 1 patch 07/26/18 10:00 08/06/18 09:51 Lidoderm Patch - TP Not Given DAILY [facility] Melatonin 5 mg 07/27/18 01:41 08/06/18 21:17 Melatonin PO 5 mg HS PRN Administration INSOMNIA Miscellaneous 1 each 07/26/18 22:00 08/06/18 21:17 Lidoderm Patch Removal MC 1 each DAILY@2200 [facility] Administration Ondansetron HCl 4 mg 08/06/18 19:58 08/06/18 20:07 Zofran - PO 4 mg Q8H PRN Administration NAUSEA Oxycodone HCl 10 mg 07/29/18 12:49 08/06/18 22:07 Roxicodone - PO 10 mg Q4H PRN Administration PAIN LEVEL 7 - 10 Pantoprazole Sodium 40 mg 07/22/18 10:00 08/06/18 21:17 Protonix - PO 40 mg BID [facility] Administration Polyethylene Glycol 17 gm 07/28/18 10:00 08/06/18 09:52 Miralax (For Daily Use) - PO 17 gm DAILY [facility] Administration Quetiapine Fumarate 200 mg 07/22/18 22:00 08/06/18 21:17 Seroquel - PO 200 mg HS [facility] Administration Sevelamer Carbonate 800 mg 07/22/18 08:00 08/07/18 08:36 Renvela - PO Not Given TIDCM [facility] Impression 1. ESRD 2. abdominal pain 3. sleep apnea 4. htn 5. dm 6. asthma 7. obesity 8. anxiety 9. hx of acute psychosis/delusions 10. hx hyperkalemia Plan - HD today, pt tolerating - she has HD set up as outpt - will follow with her surgeon tomorrow - renal diet - will follow
[2018-08-07] MEDS: AMITRIPTYLINE HCL 25 MG TABLET (FP) PO SCH (12:41)
[2018-08-07] MEDS: PANTOPRAZOLE 40 MG TABLET (FP) PO SCH (12:41)
[2018-08-07] MEDS: ASPIRIN COATED 81 MG TABLET.EC PO SCH (12:42)
[2018-08-07] MEDS: BACITRACIN 15 GM TUBE TOPICAL OINTMENT TP SCH (12:42)
[2018-08-07] MEDS: DOCUSATE SODIUM 100 MG CAPSULE (FP) PO SCH (12:42)
[2018-08-07] MEDS: POLYETHYLENE GLYCOL 3350 119 GM BTL PO SCH (12:43)
[2018-08-07] MEDS: LIDOCAINE 5% TOPICAL PATCH TP SCH (12:43)
[2018-08-07] MEDS: COLLAGENASE CLOSTRIDIUM HIST. 30 GRAMS TUBE TP SCH (12:43)
[2018-08-07] MEDS: ENOXAPARIN NA (PORCINE) 30 MG/0.3 ML DISP.SYRIN SQ SCH (12:43)
[2018-08-07] MEDS: oxyCODONE HCL 5 MG TABLET PO PRN (13:09)
[2018-08-07] MEDS: DAPTOMYCIN 1,000 MG in SODIUM CHLORIDE 50 ML IVPB SCH (13:14)
== END 2018-08-07 13:47 | DRG 70 ==
LOC: JER 18:08 → JERBED 07-22 00:08 → J7W 07-24 04:43
PROVIDERS: ADMIT Internal Medicine; ATTEND Internal Medicine
PROC: 30233N1 Transfusion of Nonautologous Red Blood Cells into Peripheral Vein, Percutaneous Approach (ICD-10-PCS; 2018-07-24)
PROC: 5A1D70Z Performance of Urinary Filtration, Intermittent, Less than 6 Hours Per Day (ICD-10-PCS; principal; 2018-08-07)
DX: G93.41 Metabolic encephalopathy (principal); N18.6 End stage renal disease; I33.0 Acute and subacute infective endocarditis; R78.81 Bacteremia; I12.0 Hypertensive chronic kidney disease with stage 5 chronic kidney disease or end stage renal disease; T39.1X1A Poisoning by 4-Aminophenol derivatives, accidental (unintentional), initial encounter; T40.2X1A Poisoning by other opioids, accidental (unintentional), initial encounter; E66.01 Morbid (severe) obesity due to excess calories; K43.2 Incisional hernia without obstruction or gangrene; E11.40 Type 2 diabetes mellitus with diabetic neuropathy, unspecified; Z99.2 Dependence on renal dialysis; A49.02 Methicillin resistant Staphylococcus aureus infection, unspecified site; J45.909 Unspecified asthma, uncomplicated; F41.9 Anxiety disorder, unspecified; G47.30 Sleep apnea, unspecified; D64.9 Anemia, unspecified
CPT/HCPCS: 36415; 36430; 70450-TC; 71045-TC-FY; 74176-TC; 80048; 80053; 82550; 82553; 82565; 82803; 82962; 83605; 83735; 84100; 84484; 84520; 85025; 85027; 85610; 85730; 86317; 86706; 86803; 86850; 86900; 86901; 86922; 87040; 87340; 87389; 87804; 93005; 93010; 97116-GP; 97161-GP; 99285-25; J0131; J0878; J0885; J1644; P9038; P9058

== ENCOUNTER → 2018-08-14 | Emergency (ER) | payer OTHER ==
[~2018-08-14] MED LIST: PIPERACILLIN/TAZOB 3.375 GM 3.375 GM in DEXTROSE 5%-WATER - 50 ML IVPB ONE; PIPERACILLIN/TAZOB 3.375 GM 3.375 GM/50 ML BAG IVPB ONE; SODIUM CHLORIDE 500 ML IV SCH; VANCOMYCIN HCL 1,500 MG in DEXTROSE 5%-WATER - 500 ML IVPB ONE
[2018-08-14 03:49] VITALS: BMI 31.1
--- NOTE | 2018-08-14 03:49 | PDOC ---
History of Present Illness - General Chief Complaint: Revisit,Wound Recheck Stated Complaint: WOUND PROBLEM, S/P SURGERY Time Seen by Provider: 08/14/18 03:29 - History of Present Illness Initial Comments: 08/14/18 03:48 53 year old Infected hernial mesh removed 2 weeks ago patient noted leaking from the wound tonight surgery done at [facility], Dr. Farrell Past History - Past Medical History Allergies/Adverse Reactions: Allergies Allergy/AdvReac Type Severity Reaction Status Date / Time No Known Allergies Allergy Verified 08/14/18 03:39 Home Medications: Ambulatory Orders Acetaminophen [Tylenol .Regular Strength -] 650 mg PO Q4H PRN tablet 07/26/18 Amox-Tr/K Cl [Augmentin 875-125mg Tablet -] 1 tab PO HS tablet 07/26/18 Bacitracin - [Bacitracin Topical Ointment -] 1 applic TP BID tube 07/26/18 Collagenase Clostridium Hist. [Santyl -] 1 applic TP DAILY tube 07/26/18 Daptomycin [Cubicin (Restricted To Id) -] 1,000 mg IVPB Q2D vial 07/26/18 Insulin Sliding Scale [Novolog Vial Sliding Scale -] 1 vial SQ ACHS units 07/26 Lidocaine 5% Patch [Lidoderm -] 1 patch TP DAILY patch 07/26/18 oxyCODONE HCL [Roxicodone -] 5 mg PO Q4H PRN #120 tablet MDD 30 mg 07/26/18 Amitriptyline HCl [Elavil -] 100 mg PO DAILY #30 tablet 08/06/18 Aspirin Coated [Ecotrin -] 81 mg PO DAILY #30 tablet.ec 08/06/18 Calcium Acetate 2 cap PO TID #270 tablet 08/06/18 Collagenase Clostridium Hist. [Santyl -] 1 applic TP DAILY #1 tube 08/06/18 Docusate Sodium [Colace] 100 mg PO DAILY #90 capsule 08/06/18 Enoxaparin [Lovenox -] 30 mg SQ DAILY #30 disp.syrin 08/06/18 Esomeprazole Magnesium 40 mg PO BID #60 capsule. 08/06/18 Oxycodone HCl/Acetaminophen [Percocet 10-325 mg Tablet] 1 each PO Q8H PRN #90 tablet MDD 3 08/06/18 Polyethylene Glycol 3350 [Miralax 119 gm Btl -] 17 gm PO DAILY PRN #1 bottle Quetiapine Fumarate [Seroquel -] 200 mg PO HS #30 tablet 08/06/18 Sevelamer Carbonate [Renvela -] 800 mg PO TIDCM #90 tab 08/06/18 Simvastatin 40 mg PO DAILY #30 tablet 08/06/18 Anemia: No Asthma: Yes Cancer: No Cardiac Disorders: No CVA: No COPD: No CHF: No Dementia: No Diabetes: Yes (DM) Dialysis: Yes (TUES,THUR,SAT) GI Disorders: Yes (UMBALICAL HERNIA) Disorders: No HTN: Yes Hypercholesterolemia: No Liver Disease: No Psychiatric Problems: Yes (PTSD) Seizures: No Thyroid Disease: No - Surgical History Abdominal Surgery: Yes (UMB.HERNIA X 5 / mesh placement x2 /) Appendectomy: No Cardiac Surgery: No Cholecystectomy: No GI Surgery: Yes Lung Surgery: No Neurologic Surgery: No - Immunization History Immunization Up to Date: Yes - Suicide/Smoking/Psychosocial Hx Smoking Status: Yes Smoking History: Never smoked Have you smoked in the past 12 months: No Number of Cigarettes Smoked Daily: 10 Information on smoking cessation initiated: No 'Breaking Loose' booklet given: 07/24/18 Hx Alcohol Use: No Drug/Substance Use Hx: No Substance Use Type: None Hx Substance Use Treatment: No *Physical Exam - Vital Signs Last Vital Signs Temp Pulse Resp BP Pulse Ox 97.4 F L 96 H 16 88/55 L 97 08/14/18 03:18 08/14/18 03:18 08/14/18 03:18 08/14/18 03:18 08/14/18 03:18 Moderate Sedation - Procedure Monitoring Vital Signs: Procedure Monitoring Vital Signs Temperature 97.4 F L 08/14/18 03:18 Pulse Rate 96 H 08/14/18 03:18 Respiratory Rate 16 08/14/18 03:18 Blood Pressure 88/55 L 08/14/18 03:18 O2 Sat by Pulse Oximetry (%) 97 08/14/18 03:18 ED Treatment Course - RADIOLOGY Radiology Studies Ordered: Category Date Time Status CHEST X-RAY PORTABLE* [RAD] Stat Radiology 08/14/18 03:41 Ordered *DC/Admit/Observation/Transfer - Discharge Dispostion Condition at time of disposition: Fair - Referrals - Patient Instructions - Post Discharge Activity
--- NOTE | 2018-08-14 04:35 | PDOC ---
Attending Attestation - Resident Resident Name: Shelli Bautista - ED Attending Attestation I have performed the following: I have examined & evaluated the patient, The case was reviewed & discussed with the resident, I agree w/resident's findings & plan, Exceptions are as noted - HPI HPI: 08/14/18 04:28 53 yo F with esrd, polycystic kidney disease, htn recent abd mesh removal 6 weeks ago, h/o bactermia. MRSA recently discharged from [facility] 1.29. here wtih drainage from abd wound, fould oder. - Physicial Exam PE: 08/14/18 04:31 pt awake alert lungs clear bilaterally heart rrr no mrg abd soft nt central incision scar wtih stool coming from scar . no other complaints. - Medical Decision Making 08/14/18 04:33 53 yo F s/p infected surgical mesh removal, esrd here with now stool coming from wound. differential is enterocutaneous fistula, obstruction, abscess. plan will call pt surgeon. placed call to dr viveros [phone]. septic workup. broad spectrum abx, and ct a/p 08/14/18 04:42 d/w surgery at [facility], request pt be transferred to ed there, will obtain imaging at [facility]. labs obtained, and pending iv abx, given hydration wtih 500 ml NS ( pt is dialysis). called [facility] transfer [place]. 08/14/18 06:10 pt difficulty access, right IJ attempted. unable to thread wire suspect subclavian stenosis. right femoral line placed. 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 tolerated procedure. well. given vancomycin and zosyn for sepsis, small fluid bolus. d/w transfer center. accepted to ED by DR harden, and DR Viveros surgical attending. Heart Score/ECG Review #1 General ECG Interpretation: Sinus Rhythm (86), Normal Rate, Normal Intervals, No acute ischemic changes (q wave III, no st elevation or depression.) Compared to previous ECG there are: No significant change (comparison 07/21/18)
[2018-08-14 06:22] LABS: INR 1.18 (0.83-1.09)
[2018-08-14 06:25] LABS: ACTIVATED PTT 27.7 SECONDS (25.2-36.5)
[2018-08-14 06:58] VITALS: PULSE 89; TEMP 98.1
[2018-08-14 07:08] VITALS: BP 124/61
[2018-08-14 11:03] LABS: VENOUS PC02 54.9 mmHg (38-52); VENOUS PH 7.21 (7.32-7.42); VENOUS PO2 46.7 mmHg (28-48)
[2018-08-14 11:07] LABS: BASO % 0.2 % (0-2.0); EOS % 0.7 % (0-4.5); HEMATOCRIT 29.8 % (32.4-45.2); HEMOGLOBIN 9.8 GM/dL (10.7-15.3); LYMPH % 18.6 % (8-40); MCH 30.7 pg (25.7-33.7); MCHC 32.9 g/dl (32.0-36.0); MEAN CELL VOLUME 93.3 fl (80-96); MEAN PLT VOLUME 8.7 fl (7.5-11.1); MONO % 7.1 % (3.8-10.2); NEUT % 73.4 % (42.8-82.8); PLATELET COUNT 158 K/MM3 (134-434); RBC 3.19 M/mm3 (3.60-5.2); RDW 17.6 % (11.6-15.6); WHITE BLOOD COUNT 5.8 K/mm3 (4.0-10.0)
[2018-08-14 11:43] LABS: ALBUMIN 2.3 g/dl (3.4-5.0); ALK PHOS 75 U/L (45-117); ANION GAP 11 MMOL/L (8-16); BILIRUBIN,TOTAL 0.3 mg/dL (0.2-1); BLOOD UREA NITROGEN 44 mg/dL (7-18); CHLORIDE 94 mmol/L (98-107); CO2 24 mmol/L (21-32); POTASSIUM 4.5 mmol/L (3.5-5.1); SGOT/AST 9 U/L (15-37); SGPT/ALT 9 U/L (13-61); SODIUM 130 mmol/L (136-145); TOT PROT 7.8 g/dl (6.4-8.2)
[2018-08-14 12:10] LABS: GLUCOSE,RANDOM 49 mg/dL (74-106)
[2018-08-14 12:13] LABS: CREATININE 9.2 mg/dL (0.55-1.3)
--- NOTE | 2018-08-14 12:21 | PDOC ---
*Physical Exam - Vital Signs Last Vital Signs Temp Pulse Resp BP Pulse Ox 98.1 F 89 16 124/61 98 08/14/18 07:05 08/14/18 07:05 08/14/18 07:05 08/14/18 07:05 08/14/18 06:56 ED Treatment Course - LABORATORY CBC & Chemistry Diagram: 08/14/18 05:32 08/14/18 05:32 - ADDITIONAL ORDERS Additional order review: Laboratory Results 08/14/18 08/14/18 08/14/18 05:32 05:32 05:32 PT with INR INR PTT (Actin FS) VBG pH POC VBG pCO2 POC VBG pO2 Mixed VBG HCO3 Sodium 130 L Potassium 4.5 Chloride 94 L Carbon Dioxide 24 Anion Gap 11 BUN 44 H Creat Clearance w eGFR 4.50 Lactic Acid 0.7 Calcium 9.0 Total Bilirubin 0.3 AST 9 L ALT 9 L Alkaline Phosphatase 75 Troponin I < 0.02 Total Protein 7.8 Albumin 2.3 L 08/14/18 08/14/18 05:32 05:32 PT with INR 14.00 H INR 1.18 H PTT (Actin FS) 27.7 VBG pH 7.21 L* POC VBG pCO2 54.9 H POC VBG pO2 46.7 D Mixed VBG HCO3 21.3 Sodium Potassium Chloride Carbon Dioxide Anion Gap BUN Creat Clearance w eGFR Lactic Acid Calcium Total Bilirubin AST ALT Alkaline Phosphatase Troponin I Total Protein Albumin 08/14/18 05:32 RBC 3.19 L MCV 93.3 MCHC 32.9 RDW 17.6 H MPV 8.7 Neutrophils % 73.4 Lymphocytes % 18.6 Monocytes % 7.1 Eosinophils % 0.7 D Basophils % 0.2 - Medications Given in the ED: ED Medications Discontinued Medications Generic Name Dose Route Start Last Admin Trade Name Freq PRN Reason Stop Dose Admin Vancomycin HCl 1,500 mg/ 500 mls @ 250 mls/hr 08/14/18 04:35 08/14/18 06:41 Dextrose IVPB 08/14/18 06:34 250 mls/hr ONCE ONE Administration Protocol Piperacillin Sod/Tazobactam 50 mls @ 100 mls/hr 08/14/18 04:35 08/14/18 05:43 Sod 3.375 gm/ Dextrose IVPB 08/14/18 05:04 100 mls/hr ONCE ONE Administration Protocol Medical Decision Making - Medical Decision Making 08/14/18 12:15 I received a call from the lab about this patient's labs 08/14/18 12:21 Laboratory Tests 08/14/18 05:32 Creatinine 9.2 H* Random Glucose 49 L* This patient was transferred from this hospital to [facility] upon my arrival to the ER (at 7am) *DC/Admit/Observation/Transfer Diagnosis at time of Disposition: Wound dehiscence - Discharge Dispostion Disposition: TRANSFER ACUTE CARE/OTHER HOSP Condition at time of disposition: Fair - Referrals Referrals: Tequila Velazco MD [Primary Care Provider] - - Patient Instructions - Post Discharge Activity
--- NOTE | 2018-08-14 15:05 | EKG ---
Test Reason : Blood Pressure : / mmHG Vent. Rate : 086 BPM Atrial Rate : 086 BPM P-R Int : 188 ms QRS Dur : 118 ms QT Int : 376 ms P-R-T Axes : 061 010 062 degrees QTc Int : 449 ms NORMAL SINUS RHYTHM POSSIBLE LEFT ATRIAL ENLARGEMENT NON-SPECIFIC INTRA-VENTRICULAR CONDUCTION DELAY BORDERLINE ECG Confirmed by Miah Carranza MD ([id number]) on 08/14/2018 3:05:06 PM Referred By: Confirmed By:Miah Carranza MD
== END | disposition short-term general hospital (02) ==
LOC: JER 03:18
DX: T81.31XA Disruption of external operation (surgical) wound, not elsewhere classified, initial encounter (principal); Z98.890 Other specified postprocedural states; Z86.19 Personal history of other infectious and parasitic diseases; Z86.14 Personal history of Methicillin resistant Staphylococcus aureus infection; I12.0 Hypertensive chronic kidney disease with stage 5 chronic kidney disease or end stage renal disease; E11.22 Type 2 diabetes mellitus with diabetic chronic kidney disease; N18.6 End stage renal disease; N17.8 Other acute kidney failure; Z99.2 Dependence on renal dialysis; Z79.4 Long term (current) use of insulin; J45.909 Unspecified asthma, uncomplicated; E28.2 Polycystic ovarian syndrome; F43.10 Post-traumatic stress disorder, unspecified
CPT/HCPCS: 36415; 71045-TC-FY; 80053; 82803; 83605; 84484; 85025; 85610; 85730; 87040; 93005; 93010; 96365; 96366; 96367; 99284-25; J7030

== ENCOUNTER 2018-09-04 16:10 | Emergency (ER) | payer OTHER ==
[2018-09-04 16:39] VITALS: BP 136/78; PULSE 84; TEMP 98.7; BMI 25.8
--- NOTE | 2018-09-04 17:17 | PDOC ---
History of Present Illness - General Chief Complaint: Revisit, Lab Variance Stated Complaint: LOW SODIUM History Source: Patient Exam Limitations: No Limitations - History of Present Illness Initial Comments: 09/04/18 17:14 53 yo F h/o ESRD CHF HT DM followed by dr romano, here because was called and told the sodium was 113. was at [facility] . did receive dialysis today. received full session. no headache, confusion or n/v. no current complaints. no new medications. Past History - Past Medical History Allergies/Adverse Reactions: Allergies Allergy/AdvReac Type Severity Reaction Status Date / Time No Known Allergies Allergy Verified 09/04/18 16:39 Home Medications: Ambulatory Orders Acetaminophen [Tylenol .Regular Strength -] 650 mg PO Q4H PRN tablet 07/26/18 Amox-Tr/K Cl [Augmentin 875-125mg Tablet -] 1 tab PO HS tablet 07/26/18 Bacitracin - [Bacitracin Topical Ointment -] 1 applic TP BID tube 07/26/18 Collagenase Clostridium Hist. [Santyl -] 1 applic TP DAILY tube 07/26/18 Daptomycin [Cubicin (Restricted To Id) -] 1,000 mg IVPB Q2D vial 07/26/18 Insulin Sliding Scale [Novolog Vial Sliding Scale -] 1 vial SQ ACHS units 07/26 Lidocaine 5% Patch [Lidoderm -] 1 patch TP DAILY patch 07/26/18 oxyCODONE HCL [Roxicodone -] 5 mg PO Q4H PRN #120 tablet MDD 30 mg 07/26/18 Amitriptyline HCl [Elavil -] 100 mg PO DAILY #30 tablet 08/06/18 Aspirin Coated [Ecotrin -] 81 mg PO DAILY #30 tablet.ec 08/06/18 Calcium Acetate 2 cap PO TID #270 tablet 08/06/18 Collagenase Clostridium Hist. [Santyl -] 1 applic TP DAILY #1 tube 08/06/18 Docusate Sodium [Colace] 100 mg PO DAILY #90 capsule 08/06/18 Enoxaparin [Lovenox -] 30 mg SQ DAILY #30 disp.syrin 08/06/18 Esomeprazole Magnesium 40 mg PO BID #60 capsule. 08/06/18 Oxycodone HCl/Acetaminophen [Percocet 10-325 mg Tablet] 1 each PO Q8H PRN #90 tablet MDD 3 08/06/18 Polyethylene Glycol 3350 [Miralax 119 gm Btl -] 17 gm PO DAILY PRN #1 bottle Quetiapine Fumarate [Seroquel -] 200 mg PO HS #30 tablet 08/06/18 Sevelamer Carbonate [Renvela -] 800 mg PO TIDCM #90 tab 08/06/18 Simvastatin 40 mg PO DAILY #30 tablet 08/06/18 Anemia: No Asthma: Yes Cancer: No Cardiac Disorders: No CVA: No COPD: No CHF: No Dementia: No Diabetes: Yes (DM) Dialysis: Yes (TUES,THUR,SAT) GI Disorders: Yes (UMBALICAL HERNIA) Disorders: No HTN: Yes Hypercholesterolemia: No Liver Disease: No Psychiatric Problems: Yes (PTSD) Seizures: No Thyroid Disease: No - Surgical History Abdominal Surgery: Yes (UMB.HERNIA X 5 / mesh placement x2 /) Appendectomy: No Cardiac Surgery: No Cholecystectomy: No GI Surgery: Yes Lung Surgery: No Neurologic Surgery: No - Immunization History Immunization Up to Date: Yes - Suicide/Smoking/Psychosocial Hx Smoking Status: Yes Smoking History: Never smoked Have you smoked in the past 12 months: No Number of Cigarettes Smoked Daily: 10 Information on smoking cessation initiated: No 'Breaking Loose' booklet given: 07/24/18 Hx Alcohol Use: No Drug/Substance Use Hx: No Substance Use Type: None Hx Substance Use Treatment: No Review of Systems - Review of Systems Constitutional: No: Chills, Diaphoresis HEENTM: No: Eye Pain, Blurred Vision Respiratory: No: Cough, Orthopnea Cardiac (ROS): No: Chest Pain ABD/GI: No: Nausea, Vomiting Musculoskeletal: No: Gout, Muscle Weakness All Other Systems: Reviewed and Negative *Physical Exam - Vital Signs Last Vital Signs Temp Pulse Resp BP Pulse Ox 98.7 F 84 16 136/78 96 09/04/18 16:37 09/04/18 16:37 09/04/18 16:37 09/04/18 16:37 09/04/18 16:37 Moderate Sedation - Procedure Monitoring Vital Signs: Procedure Monitoring Vital Signs Temperature 98.7 F 09/04/18 16:37 Pulse Rate 84 09/04/18 16:37 Respiratory Rate 16 09/04/18 16:37 Blood Pressure 136/78 09/04/18 16:37 O2 Sat by Pulse Oximetry (%) 96 09/04/18 16:37 ED Treatment Course - LABORATORY CBC & Chemistry Diagram: 09/04/18 18:23 09/04/18 18:23 Medical Decision Making - Medical Decision Making 09/04/18 17:16 53 yo ESRD here for hyponatremia. but no sxs. suspect lab error. will repeat labs. and d/w dr romano. 09/04/18 19:05 *DC/Admit/Observation/Transfer Diagnosis at time of Disposition: ESRD (end stage renal disease) - Referrals Referrals: Tequila Velazco MD [Primary Care Provider] - - Patient Instructions Printed Discharge Instructions: Hemodialysis Additional Instructions: you should follow up with your dialysis per your routine schedule. you can follow up with DR Romano. return for any nausea, vomiting headache or any concerns. - Post Discharge Activity
--- NOTE | 2018-09-04 17:20 | CONSULT ---
Consult Consult Specialty:: Nephrology Reason for Consultation:: ESRD - History of Present Illness Chief Complaint: sent in for abnormal labs History of Present Illness: Pt is a 53 year old female with pmhx of ESRD who was sent in to the ER for abnormal labs. She says that she was called from [facility] and told that her sodium was 113. She does not know when the labs were drawn. She went to HD today and it was uneventful. She says that she feels well. She denies headache or change in vision. She overall feels well. 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 at 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 for pneumatosis with bowel resection; recent mesh removal, bowel resection and primary fascial closure at [facility] 06/26 with retention sutures) - Alcohol/Substance Use Hx Alcohol Use: No History of Substance Use: reports: None, Prescription (Percocet ?how much how often) - Smoking History Smoking history: Never smoked Have you smoked in the past 12 months: No Aproximately how many cigarettes per day: 10 - Social History Usual Living Arrangement: With Child ADL: Support Services (has an aid now, has 2 kids [employer] 5 hrs/ 7 days a week) History of Recent Travel: No Home Medications - Allergies Allergies/Adverse Reactions: Allergies Allergy/AdvReac Type Severity Reaction Status Date / Time No Known Allergies Allergy Verified 09/04/18 16:39 - Home Medications Home Medications: Ambulatory Orders Acetaminophen [Tylenol .Regular Strength -] 650 mg PO Q4H PRN tablet 07/26/18 Amox-Tr/K Cl [Augmentin 875-125mg Tablet -] 1 tab PO HS tablet 07/26/18 Bacitracin - [Bacitracin Topical Ointment -] 1 applic TP BID tube 07/26/18 Collagenase Clostridium Hist. [Santyl -] 1 applic TP DAILY tube 07/26/18 Daptomycin [Cubicin (Restricted To Id) -] 1,000 mg IVPB Q2D vial 07/26/18 Insulin Sliding Scale [Novolog Vial Sliding Scale -] 1 vial SQ ACHS units 07/26 Lidocaine 5% Patch [Lidoderm -] 1 patch TP DAILY patch 07/26/18 oxyCODONE HCL [Roxicodone -] 5 mg PO Q4H PRN #120 tablet MDD 30 mg 07/26/18 Amitriptyline HCl [Elavil -] 100 mg PO DAILY #30 tablet 08/06/18 Aspirin Coated [Ecotrin -] 81 mg PO DAILY #30 tablet.ec 08/06/18 Calcium Acetate 2 cap PO TID #270 tablet 08/06/18 Collagenase Clostridium Hist. [Santyl -] 1 applic TP DAILY #1 tube 08/06/18 Docusate Sodium [Colace] 100 mg PO DAILY #90 capsule 08/06/18 Enoxaparin [Lovenox -] 30 mg SQ DAILY #30 disp.syrin 08/06/18 Esomeprazole Magnesium 40 mg PO BID #60 capsule. 08/06/18 Oxycodone HCl/Acetaminophen [Percocet 10-325 mg Tablet] 1 each PO Q8H PRN #90 tablet MDD 3 08/06/18 Polyethylene Glycol 3350 [Miralax 119 gm Btl -] 17 gm PO DAILY PRN #1 bottle Quetiapine Fumarate [Seroquel -] 200 mg PO HS #30 tablet 08/06/18 Sevelamer Carbonate [Renvela -] 800 mg PO TIDCM #90 tab 08/06/18 Simvastatin 40 mg PO DAILY #30 tablet 08/06/18 Family Disease History - Family Disease History Family Disease History: Other: Mother (polycystic disease, CVA, brain aneurysm) , Son, Daughter Review of Systems - Review of Systems Constitutional: reports: No Symptoms Eyes: reports: No Symptoms HENT: reports: No Symptoms Neck: reports: No Symptoms Cardiovascular: reports: No Symptoms Respiratory: reports: No Symptoms Gastrointestinal: reports: No Symptoms Genitourinary: reports: No Symptoms Musculoskeletal: reports: No Symptoms Integumentary: reports: No Symptoms Neurological: reports: No Symptoms Physical Exam Vital Signs: Vital Signs Temperature 98.7 F 09/04/18 16:37 Pulse Rate 84 09/04/18 16:37 Respiratory Rate 16 09/04/18 16:37 Blood Pressure 136/78 09/04/18 16:37 O2 Sat by Pulse Oximetry (%) 96 09/04/18 16:37 Constitutional: Yes: Calm Eyes: Yes: Conjunctiva Clear HENT: Yes: Atraumatic Cardiovascular: Yes: S1, S2 Respiratory: Yes: CTA Bilaterally Gastrointestinal: Yes: Soft Renal/: Yes: WNL Musculoskeletal: Yes: WNL Edema: LLE: Trace, RLE: Trace Neurological: Yes: Oriented Psychiatric: Yes: Oriented Assessment/Plan Impression 1. ESRD 2. abdominal pain 3. sleep apnea 4. htn 5. dm 6. asthma 7. obesity 8. anxiety 9. hx of acute psychosis/delusions 10. hx hyperkalemia 11. abnormal outpt labs Plan - spoke to ER - repeat bmp - pt did get HD today - will attempt to track down actual labs - per pt, she did get HD today - pts mental status at baseline - call with bmp results Dr Romano
[2018-09-04 19:11] LABS: BASO % 0.2 % (0-2.0); EOS % 2.2 % (0-4.5); HEMATOCRIT 26.6 % (32.4-45.2); HEMOGLOBIN 8.9 GM/dL (10.7-15.3); LYMPH % 6.2 % (8-40); MCH 30.7 pg (25.7-33.7); MCHC 33.5 g/dl (32.0-36.0); MEAN CELL VOLUME 91.5 fl (80-96); MEAN PLT VOLUME 9.2 fl (7.5-11.1); MONO % 4.4 % (3.8-10.2); PLATELET COUNT 143 K/MM3 (134-434); RBC 2.91 M/mm3 (3.60-5.2); RDW 17.6 % (11.6-15.6); WHITE BLOOD COUNT 4.9 K/mm3 (4.0-10.0)
[2018-09-04 19:30] LABS: ALBUMIN 2.5 g/dl (3.4-5.0); ALK PHOS 94 U/L (45-117); ANION GAP 10 MMOL/L (8-16); BILIRUBIN,TOTAL 0.3 mg/dL (0.2-1); BLOOD UREA NITROGEN 33 mg/dL (7-18); CALCIUM 8.2 mg/dL (8.5-10.1); CHLORIDE 97 mmol/L (98-107); CO2 26 mmol/L (21-32); CREATININE 4.1 mg/dL (0.55-1.3); GLUCOSE,RANDOM 81 mg/dL (74-106); SGOT/AST 20 U/L (15-37); SGPT/ALT 18 U/L (13-61); SODIUM 133 mmol/L (136-145); TOT PROT 8.1 g/dl (6.4-8.2)
[2018-09-04 19:32] LABS: POTASSIUM 2.9 mmol/L (3.5-5.1)
== END 2018-09-04 22:10 | disposition home or self-care (01) ==
LOC: JER 16:10
DX: I12.0 Hypertensive chronic kidney disease with stage 5 chronic kidney disease or end stage renal disease (principal); E11.22 Type 2 diabetes mellitus with diabetic chronic kidney disease; N18.6 End stage renal disease; N17.8 Other acute kidney failure; Z99.2 Dependence on renal dialysis; Z79.4 Long term (current) use of insulin; Z87.09 Personal history of other diseases of the respiratory system; F41.9 Anxiety disorder, unspecified; G47.39 Other sleep apnea; Z86.59 Personal history of other mental and behavioral disorders
CPT/HCPCS: 36415; 80053; 85025; 99282-25

== ENCOUNTER 2018-09-22 09:05 | Emergency (ER) | payer OTHER ==
[2018-09-22 09:29] VITALS: BMI 36.6
--- NOTE | 2018-09-22 09:35 | PDOC ---
Attending Attestation - Resident Resident Name: PolobeckyPatelGonzalez - ED Attending Attestation I have performed the following: I have examined & evaluated the patient, The case was reviewed & discussed with the resident, I agree w/resident's findings & plan, Exceptions are as noted - HPI HPI: 09/22/18 09:32 53y F hx of ESRD (, Th, Sa), CHF, HTN, DM, hx of recent abd surgery at [facility] s/p colectomy (? partial) presents with chest pain. The patient notes she had CP upon awakening this morning around 2am that resolved prior to dialysis. Pt notes the pain felt like a 'gas bubble'. The patient denies any associated sob, diaphoresis, n/v, abd pain, back pain, palpitations, lightheadeness, increased leg swelling. Singh any prior history of similar cp in the past. There was no worsening of the discofort when she was ambulating between her apt to the transportation to dialysis. Pt ntoes that the dialysis center noticed her BP was low during dialysis so was sent to [facility] ED for evaluation. The patient had about 1.5 hrs of dialysis today. Notes that her ostomy output is kind of like baby food. pt tolerated oral intake this morning during dialysis w/o any n/v/bad pain PMD:Iveth Nephro: Juan Antonio - Physicial Exam PE: 09/22/18 10:17 GENERAL: The patient is awake, alert, and fully oriented, Nontoxic - in no acute distress. HEAD: Normocephalic, atraumatic. EYES: extraocular movements intact, sclera anicteric, conjunctiva clear. ENT: Normal voice, Moist mucous membranes. NECK: Normal range of motion, supple LUNGS: Breath sounds equal, clear to auscultation bilaterally. No wheezes, no rhonchi, no rales. CHEST: TPN port on R chest, site c/l/i without induration, tenderness, permcath on L chest site c/d/i HEART: Regular rate and rhythm, normal S1 and S2 without murmur, rub or gallop. ABDOMEN: Soft, ostomy bag present. abd nontender, No guarding, no rebound. No CVA tenderness EXTREMITIES: Normal range of motion, trace edema b/l, b/l fistulas on upper arms w/o thrills NEUROLOGICAL: No facial assymetry, Normal speech, PSYCH: Normal mood, normal affect. SKIN: Warm, Dry, normal turgor, - Medical Decision Making 09/22/18 10:16 53y F hx of ESRD, HTN, HL, recnet history of abd surgery (2 months ago) presents with episode of CP this morning that resolved prior to dialysis then noted with asymptomatic hypotensive during dialysis and sent for evaluation. currently asymptmoatic. notes she ate some food during dialysis this morning w/ o vomting differential large and includes but not limited to metabolic derangement, occult infection, acs will ck labs, ekg, cxr will reassess 09/22/18 13:00 The patient's labs are reviewed hemaglobin at baseline (mid 8s) when compared with prior visits pt is currently asypmtomtaic bnp elevated but suspect due to renal failure. she is exhibiting no syptoms suggestive of heart failure will obtain a second trop, if she is asymtoamtic, anticipate dc wiht pmd fu
--- NOTE | 2018-09-22 10:42 | PDOC ---
History of Present Illness - General Chief Complaint: Chest Pain Stated Complaint: CHEST PAIN Time Seen by Provider: 09/22/18 09:19 - History of Present Illness Initial Comments: The pt is a 53F w/ a history of ESRD on iHD, DM, s/p ostomy who presents from HD for evaluation of hypotension s/p iHD and reported chest pain/discomfort this AM at 0200. The chest pain reportedly resolved prior to iHD and has not since returned. Pt noted to by hypotensive to SBP 90s and was only able to receive half session of HD. Pt later noted that she took Ativan 2mg just prior to HD. Currently reports feeling tired because she awoke at 0200. Denies fevers/chills, current chest pain, SOB, abdominal pain, N/V, rash 09/22/18 10:40 Past History - Past Medical History Allergies/Adverse Reactions: Allergies Allergy/AdvReac Type Severity Reaction Status Date / Time No Known Allergies Allergy Verified 09/22/18 09:33 Home Medications: Ambulatory Orders Acetaminophen [Tylenol .Regular Strength -] 650 mg PO Q4H PRN tablet 07/26/18 Insulin Sliding Scale [Novolog Vial Sliding Scale -] 1 vial SQ ACHS units 07/26 Amitriptyline HCl [Elavil -] 100 mg PO DAILY #30 tablet 08/06/18 Aspirin Coated [Ecotrin -] 81 mg PO DAILY #30 tablet.ec 08/06/18 Calcium Acetate 2 cap PO TID #270 tablet 08/06/18 Docusate Sodium [Colace] 100 mg PO DAILY #90 capsule 08/06/18 Enoxaparin [Lovenox -] 30 mg SQ DAILY #30 disp.syrin 08/06/18 Esomeprazole Magnesium 40 mg PO BID #60 capsule. 08/06/18 Quetiapine Fumarate [Seroquel -] 200 mg PO HS #30 tablet 08/06/18 Sevelamer Carbonate [Renvela -] 800 mg PO TIDCM #90 tab 08/06/18 Simvastatin 40 mg PO DAILY #30 tablet 08/06/18 Anemia: No Asthma: Yes Cancer: No Cardiac Disorders: No CVA: No COPD: No CHF: No Dementia: No Diabetes: Yes (DM) Dialysis: Yes (TUES,THUR,SAT) GI Disorders: Yes (UMBALICAL HERNIA) Disorders: No HTN: Yes Hypercholesterolemia: No Liver Disease: No Psychiatric Problems: Yes (PTSD) Seizures: No Thyroid Disease: No - Surgical History Abdominal Surgery: Yes (UMB.HERNIA X 5 / mesh placement x2 /) Appendectomy: No Cardiac Surgery: No Cholecystectomy: No GI Surgery: Yes Lung Surgery: No Neurologic Surgery: No - Immunization History Immunization Up to Date: Yes - Suicide/Smoking/Psychosocial Hx Smoking Status: Yes Smoking History: Current every day smoker Have you smoked in the past 12 months: No Number of Cigarettes Smoked Daily: 10 Information on smoking cessation initiated: No 'Breaking Loose' booklet given: 07/24/18 Hx Alcohol Use: No Drug/Substance Use Hx: No Substance Use Type: None Hx Substance Use Treatment: No Review of Systems - Review of Systems Able to Perform ROS?: Yes Comments:: GENERAL/CONSTITUTIONAL: No fever or chills. No weakness HEAD, EYES, EARS, NOSE AND THROAT: No change in vision or hearing. No sore throat CARDIOVASCULAR: No chest pain or shortness of breath RESPIRATORY: Denies cough, hemoptysis GASTROINTESTINAL: +soft/paste-like ostomy output GENITOURINARY: No dysuria, frequency, or change in urination SKIN: No rash NEUROLOGIC: No headache, loss of consciousness, or change in strength/sensation ENDOCRINE: No increased thirst. No abnormal weight change HEMATOLOGIC/LYMPHATIC: No anemia, easy bleeding, or history of blood clots ALLERGIC/IMMUNOLOGIC: No hives or skin allergy 09/22/18 14:05 Is the patient limited Serbian proficient: No *Physical Exam - Vital Signs Last Vital Signs Temp Pulse Resp BP Pulse Ox 98.5 F 86 18 96/55 L 98 09/22/18 09:10 09/22/18 09:10 09/22/18 09:10 09/22/18 09:10 09/22/18 09:10 - Physical Exam Comments: GENERAL: Awake, alert, and oriented to person/place/time, tired appearing HEAD: No signs of trauma, normocephalic, atraumatic EYES: PERRLA, EOMI, sclera anicteric, conjunctiva clear ENT: Hearing grossly normal, nares patent, oropharynx clear without exudates. Moist mucosa CHEST: R shoulder CVC; L shoulder dialysis catheter both c/d/i LUNGS: No distress, speaks full sentences, clear to auscultation bilaterally HEART: Regular rate and rhythm, normal S1 and S2, no murmurs appreciated, peripheral pulses normal and equal bilaterally ABDOMEN: Soft, protuberant, midline ostomy w/ device in place (no stool or gas in bag) w/o blood, no surrounding erythema; no TTP EXTREMITIES: Normal inspection, Normal range of motion, no edema. No clubbing or cyanosis NEUROLOGICAL: Cranial nerves II through XII grossly intact. Normal speech, no focal sensorimotor deficits SKIN: Warm, Dry 09/22/18 14:01 Moderate Sedation - Procedure Monitoring Vital Signs: Procedure Monitoring Vital Signs Temperature 98.5 F 09/22/18 09:10 Pulse Rate 86 09/22/18 09:10 Respiratory Rate 18 09/22/18 09:10 Blood Pressure 96/55 L 09/22/18 09:10 O2 Sat by Pulse Oximetry (%) 98 09/22/18 09:10 ED Treatment Course - LABORATORY CBC & Chemistry Diagram: 09/22/18 10:49 09/22/18 10:49 Medical Decision Making - Medical Decision Making The pt is a 53F w/ a history of ESRD on iHD, s/p ostomy who presents for evaluation for chest pain at 0200 and hypotension s/p iHD. Pt was only able to undergo 1/2 of her dialysis treatment ED Course CMP, CBC, Trop ECG CXR Cr elevated, but on iHD No leukocytosis Mild anemia, near baseline Trop neg x2 CXR w/o acute pathology K 3.1 BNP elevated, likely 2/2 ESRD BP improved to MAP 70 Plan for D/C home w/ home improvement contractor Discharge instructions and return precautions given Pt in agreement and return precautions given Dispo: home 09/22/18 14:10 *DC/Admit/Observation/Transfer Diagnosis at time of Disposition: Chest pain Qualifiers: Chest pain type: unspecified Qualified Code(s): R07.9 - Chest pain, unspecified - Discharge Dispostion Disposition: HOME Condition at time of disposition: Improved Decision to Admit order: No - Referrals Referrals: Tequila Velazco MD [Primary Care Provider] - Pennie Romano MD [Staff Physician] - - Patient Instructions Printed Discharge Instructions: DI for Chest Pain Additional Instructions: You were seen in the Emergency Department for evaluation of chest pain. Your cardiac markers were unremarkable and your chest x-ray was negative for acute pathology. Review the handout provided at discharge. Follow up with your primary care provider. Return to the Emergency Department if you develop fevers/ chills, chest pain, trouble breathing, vomiting, dizziness/confusion, worsening symptoms, or any new/confusing symptoms. - Post Discharge Activity
[2018-09-22 11:24] LABS: HEMATOCRIT 26.2 % (32.4-45.2); HEMOGLOBIN 8.6 GM/dL (10.7-15.3); MCH 30.2 pg (25.7-33.7); MCHC 32.7 g/dl (32.0-36.0); MEAN CELL VOLUME 92.5 fl (80-96); MEAN PLT VOLUME 9.5 fl (7.5-11.1); PLATELET COUNT 129 K/MM3 (134-434); RBC 2.83 M/mm3 (3.60-5.2); RDW 18.3 % (11.6-15.6); WHITE BLOOD COUNT 4.4 K/mm3 (4.0-10.0)
[2018-09-22 11:43] LABS: ALBUMIN 2.1 g/dl (3.4-5.0); ALK PHOS 61 U/L (45-117); ANION GAP 8 MMOL/L (8-16); BILIRUBIN,TOTAL 0.2 mg/dL (0.2-1); BLOOD UREA NITROGEN 25 mg/dL (7-18); CALCIUM 7.8 mg/dL (8.5-10.1); CHLORIDE 101 mmol/L (98-107); CO2 25 mmol/L (21-32); CREATININE 5.1 mg/dL (0.55-1.3); GLUCOSE,RANDOM 87 mg/dL (74-106); LIPASE 100 U/L (73-393); N-TERMINAL BNP 24736.5 pg/ml (5-125); POTASSIUM 3.1 mmol/L (3.5-5.1); SGOT/AST 10 U/L (15-37); SGPT/ALT 7 U/L (13-61); SODIUM 134 mmol/L (136-145); TOT PROT 7.2 g/dl (6.4-8.2)
[2018-09-22 12:01] LABS: INR 1.17 (0.83-1.09); PROTHROMBIN TIME (PATIENT) 13.8 SEC (9.7-13.0)
[2018-09-22 15:28] VITALS: BP 106/78; PULSE 69; TEMP 98
--- NOTE | 2018-09-23 11:12 | EKG ---
Test Reason : Blood Pressure : / mmHG Vent. Rate : 087 BPM Atrial Rate : 087 BPM P-R Int : 174 ms QRS Dur : 116 ms QT Int : 422 ms P-R-T Axes : 042 009 042 degrees QTc Int : 507 ms NORMAL SINUS RHYTHM POSSIBLE LEFT ATRIAL ENLARGEMENT PROLONGED QT ABNORMAL ECG WHEN COMPARED WITH ECG OF 14-AUG-2018 06:03, T WAVE INVERSION NOW EVIDENT IN ANTERIOR LEADS QT HAS LENGTHENED Confirmed by MD STEPHEN, SHERINE ([id number]) on 09/23/2018 11:12:18 AM Referred By: Confirmed By:SHERINE MITCHELL MD
== END 2018-09-22 15:27 | disposition home or self-care (01) ==
LOC: JER 09:05
DX: R07.9 Chest pain, unspecified (principal); I13.2 Hypertensive heart and chronic kidney disease with heart failure and with stage 5 chronic kidney disease, or end stage renal disease; E11.22 Type 2 diabetes mellitus with diabetic chronic kidney disease; N18.6 End stage renal disease; I50.89 Other heart failure; N17.8 Other acute kidney failure; Z99.2 Dependence on renal dialysis; Z79.4 Long term (current) use of insulin; E78.5 Hyperlipidemia, unspecified; Z90.49 Acquired absence of other specified parts of digestive tract; Z93.3 Colostomy status
CPT/HCPCS: 36415; 71045-TC-FY; 73110-TC-LT-FY; 73130-TC-LT-FY; 80053; 82550; 83690; 83880; 84484; 85027; 85610; 85730; 93005; 93010; 99284-25

== ENCOUNTER 2019-05-16 16:20 | Emergency (ER) | payer OTHER ==
[2019-05-16 16:46] VITALS: BMI 26.4
[2019-05-16 17:10] LABS: BASO % 0.5 % (0-2.0); EOS % 1.3 % (0-4.5); HEMATOCRIT 34.5 % (32.4-45.2); HEMOGLOBIN 10.8 GM/dL (10.7-15.3); LYMPH % 16.6 % (8-40); MCH 31.8 pg (25.7-33.7); MCHC 31.3 g/dl (32.0-36.0); MEAN CELL VOLUME 101.3 fl (80-96); MEAN PLT VOLUME 9.5 fl (7.5-11.1); MONO % 9.6 % (3.8-10.2); PLATELET COUNT 81 K/MM3 (134-434); RDW 20.9 % (11.6-15.6); WHITE BLOOD COUNT 4.7 K/mm3 (4.0-10.0)
[2019-05-16] MEDS ORDERED: ONDANSETRON 4 MG/2 ML VIAL IVPUSH ONE (17:21)
[2019-05-16 17:22] LABS: INR 1.3 (0.83-1.09); PROTHROMBIN TIME (PATIENT) 15.4 SEC (9.7-13.0)
--- NOTE | 2019-05-16 17:26 | PDOC ---
Attending Attestation - Resident Resident Name: Lin Gongora - ED Attending Attestation I have performed the following: I have examined & evaluated the patient, The case was reviewed & discussed with the resident, I agree w/resident's findings & plan, Exceptions are as noted - HPI HPI: 05/16/19 18:24 54yo female with RUE av graft on HD t//mon - Dr. Romano is Nephro presents for eval of low bp prior to receiving HD today. BP was 60systolic. States recent n/v daily up to 2 days ago. Last bm was 2 days ago, but passing gas. Pt recently had infected hernia mesh removal with open wound to distal incision with purulent drainage. Pt states decreased po intake. Appears very dehydrated on exam. - Physicial Exam PE: 05/16/19 18:28 Gen: aaox3, sleepy, weak Heart: +s1s2 reg lungs: cta b/l abd: midline incision with small open wound to distal midline incision - purulent drainage, mild diffuse ttp ext: RUE with av graft with bruit and thrill, no edema LE - Medical Decision Making 05/16/19 18:30 a/p: 54yo female with low bp -denies f/c -mild diffuse ttp and wound to lower abd - will send labs, ct abd/pelvis to eval poss infection vs sbo given n/v -pt with dry mm, tachy mm -will start ivf hydration, abx, labs, ct abd/pelvis -pt will need admission mild asterixis on exam - suspect from uremia 05/16/19 19:08 no elevated wbc, no temp k 3.8 glucose was 53, given iv glucose bp improving with IVF hydration 05/16/19 19:09 pt signed out to the oncoming ED team pending labs and ct abd/pelvis 05/16/19 19:11 perm cath L chest cxr clear, no free air, no pna Heart Score/ECG Review - ECG Intrepretation Comment:: 05/16/19 18:32 sinus at 94, nl axis, low voltage qrs, no acute st/t wave findings, incomplete RBBB
[2019-05-16] MEDS ORDERED: ONDANSETRON 4 MG/2 ML VIAL ONE (17:30)
[2019-05-16] MEDS ORDERED: SODIUM CHLORIDE 1,000 ML IV STA (17:33)
[2019-05-16 17:39] LABS: ALBUMIN 1.5 g/dl (3.4-5.0); ALK PHOS 103 U/L (45-117); ANION GAP 13 MMOL/L (8-16); BILIRUBIN,TOTAL 0.5 mg/dL (0.2-1); BLOOD UREA NITROGEN 26.6 mg/dL (7-18); CALCIUM 8.2 mg/dL (8.5-10.1); CHLORIDE 98 mmol/L (98-107); CO2 22 mmol/L (21-32); GLUCOSE,RANDOM 52 mg/dL (74-106); LIPASE 10 U/L (73-393); MAGNESIUM 1.9 mg/dL (1.8-2.4); PHOSPHOROUS 5.3 mg/dL (2.5-4.9); POTASSIUM 3.6 mmol/L (3.5-5.1); SGOT/AST 19 U/L (15-37); SGPT/ALT 13 U/L (13-61); SODIUM 133 mmol/L (136-145); TOT PROT 6.9 g/dl (6.4-8.2)
[2019-05-16] MEDS ORDERED: DEXTROSE 50%-WATER 25 GM/50 ML DISP.SYRIN ONE (17:42)
[2019-05-16 17:46] LABS: CREATININE 7.4 mg/dL (0.55-1.3)
[2019-05-16] MEDS ORDERED: DEXTROSE 50%-WATER - 25 GM/50 ML VIAL IVPUSH ONE ×2 (18:02→23:41)
--- NOTE | 2019-05-16 18:04 | PDOC ---
History of Present Illness - General Chief Complaint: Blood Pressure Problem Stated Complaint: BLOOD SUGAR PROBLEM Time Seen by Provider: 05/16/19 16:43 History Source: Patient Exam Limitations: No Limitations - History of Present Illness Initial Comments: Pt is a 54 yo F, with PMH of ESRD (polycystic kidney, DM, HD T/R/Sat), asthma, anemia, and multiple abdominal surgeries, is presenting from HD clinic for hypotension. Pt states over the past 3 weeks she has had vomiting once per day, and has had frequent nausea. She has had no BM in the past 4 days, but is passing gas. Her last abdominal surgery was 04/13, for ex-lap 2/2 infected hernia mesh and ostomy repair. Pt denies any fevers/chills, headache, vision changes, syncope, chest pain, palpitations, SOB, urinary symptoms, diarrhea, or leg swelling. Allergies: NKDA PCP: Dr. Lau Renal: Dr. Romano Social: Pt denies any cigarette, alcohol, or drug use. Pt denies any recent travel or sick contacts. Surgical: multiple C-sections, hernia repair x4, ostomy Family: no relevant history. 05/16/19 19:09 Past History - Travel Traveled outside of the country in the last 30 days: No Close contact w/someone who was outside of country & ill: No - Past Medical History Allergies/Adverse Reactions: Allergies Allergy/AdvReac Type Severity Reaction Status Date / Time No Known Allergies Allergy Verified 09/22/18 09:33 Home Medications: Ambulatory Orders Acetaminophen [Tylenol .Regular Strength -] 650 mg PO Q4H PRN tablet 07/26/18 Insulin Sliding Scale [Novolog Vial Sliding Scale -] 1 vial SQ ACHS units 07/26 Amitriptyline HCl [Elavil -] 100 mg PO DAILY #30 tablet 08/06/18 Aspirin Coated [Ecotrin -] 81 mg PO DAILY #30 tablet.ec 08/06/18 Calcium Acetate 2 cap PO TID #270 tablet 08/06/18 Docusate Sodium [Colace] 100 mg PO DAILY #90 capsule 08/06/18 Enoxaparin [Lovenox -] 30 mg SQ DAILY #30 disp.syrin 08/06/18 Esomeprazole Magnesium 40 mg PO BID #60 capsule. 08/06/18 Quetiapine Fumarate [Seroquel -] 200 mg PO HS #30 tablet 08/06/18 Sevelamer Carbonate [Renvela -] 800 mg PO TIDCM #90 tab 08/06/18 Simvastatin 40 mg PO DAILY #30 tablet 08/06/18 Anemia: No Asthma: Yes Cancer: No Cardiac Disorders: No CVA: No COPD: No CHF: No Dementia: No Diabetes: Yes (DM) Dialysis: Yes (TUES,THUR,SAT) GI Disorders: Yes (UMBALICAL HERNIA) Disorders: No HTN: Yes Hypercholesterolemia: No Liver Disease: No Psychiatric Problems: Yes (PTSD) Seizures: No Thyroid Disease: No - Surgical History Abdominal Surgery: Yes (UMB.HERNIA X 5 / mesh placement x2 /) Appendectomy: No Cardiac Surgery: No Cholecystectomy: No GI Surgery: Yes Lung Surgery: No Neurologic Surgery: No - Immunization History Immunization Up to Date: Yes - Psycho Social/Smoking Cessation Hx Smoking Status: Yes Smoking History: Current every day smoker Have you smoked in the past 12 months: Yes Number of Cigarettes Smoked Daily: 20 Information on smoking cessation initiated: No 'Breaking Loose' booklet given: 07/24/18 Hx Alcohol Use: No Drug/Substance Use Hx: No Substance Use Type: None Hx Substance Use Treatment: No Review of Systems - Review of Systems Able to Perform ROS?: Yes Is the patient limited Arabic proficient: No Constitutional: Yes: Loss of Appetite, Malaise, Weakness, Unintentional Wgt. Loss. No: Chills, Diaphoresis, Fever HEENTM: No: Recent change in vision, Nose Congestion, Throat Pain, Throat Swelling, Difficulty Swallowing Respiratory: No: Cough, Orthopnea, Shortness of Breath Cardiac (ROS): No: Chest Pain, Edema, Irregular Heart Rate, Lightheadedness, Palpitations, Syncope, Chest Tightness ABD/GI: Yes: Constipated, Nausea, Poor Appetite, Poor Fluid Intake, Vomiting, Abdominal cramping. No: Abdominal Distended, Abd. Pain w/ defecation, Diarrhea : No: Burning, Dysuria, Frequency, Flank Pain, Pain, Urgency Musculoskeletal: No: Back Pain, Joint Pain, Muscle Pain, Muscle Weakness Integumentary: No: Rash Neurological: No: Paresthesia, Weakness, Dizziness Psychiatric: No: Sleep Pattern Change, Change in Appetite Endocrine: No: Increased Urine, Change in Weight Hematologic/Lymphatic: Yes: Anemia. No: Blood Clots, Easy Bleeding, Easy Bruising All Other Systems: Reviewed and Negative *Physical Exam - Vital Signs Last Vital Signs Temp Pulse Resp BP Pulse Ox 94 H 20 61/33 L 99 05/16/19 16:35 05/16/19 16:35 05/16/19 16:35 05/16/19 16:35 - Physical Exam Comments: Hypotension 70s/40s on exam, not tachycardic, pt afebrile. Pt in NAD, overweight body habitus. Pt alert and oriented x3. visual coordinator generally intact, muscular strength and sensation intact. No midline spinal tenderness, step-offs, or crepitus. Head normocephalic, atraumatic. Eyes PERRLA, EOMI. Oropharynx dry, without erythema or exudates, no LAD b/l. No nasal congestion. Hearing intact. Clear heart sounds, S1/S2, no JVD, b/l pedal edema, or heart murmur. Permacath in L chest wall. Clear lung sounds, no respiratory distress, wheezes, crackles, or accessory muscle use. LUQ abdominal TTP. Ostomy site with purulent drainage. Large midline healing incision. Abdomen protuberant, with normoactive bowel sounds. Skin without jaundice or rash. 05/16/19 19:18 ED Treatment Course - LABORATORY CBC & Chemistry Diagram: 05/16/19 16:54 05/16/19 16:54 - ADDITIONAL ORDERS Additional order review: Laboratory Results 05/16/19 05/16/19 16:54 16:54 PT with INR 15.40 H INR 1.30 H Sodium 133 L Potassium 3.6 Chloride 98 Carbon Dioxide 22 Anion Gap 13 BUN 26.6 H Creatinine 7.4 H* Est GFR (CKD-EPI)AfAm 6.63 Est GFR (CKD-EPI)NonAf 5.72 Random Glucose 52 L Calcium 8.2 L Phosphorus 5.3 H Magnesium 1.9 Total Bilirubin 0.5 AST 19 ALT 13 Alkaline Phosphatase 103 Creatine Kinase 43 Troponin I < 0.02 Total Protein 6.9 Albumin 1.5 L Lipase 10 L 05/16/19 16:54 RBC 3.40 L MCV 101.3 H MCHC 31.3 L RDW 20.9 H MPV 9.5 Neutrophils % 72.0 Lymphocytes % 16.6 D Monocytes % 9.6 D Eosinophils % 1.3 Basophils % 0.5 - RADIOLOGY Radiology Studies Ordered: Category Date Time Status ABDOMEN & PELVIS CT W/O CONTR [CT] Stat CT Scan 05/16/19 17:43 Ordered CHEST X-RAY PORTABLE* [RAD] Stat Radiology 05/16/19 17:43 Ordered - Medications Given in the ED: ED Medications Discontinued Medications Generic Name Dose Route Start Last Admin Trade Name Freq PRN Reason Stop Dose Admin Ondansetron HCl 4 mg 05/16/19 17:21 05/16/19 17:40 Zofran Injection IVPUSH 05/16/19 17:22 4 mg ONCE ONE Administration Medical Decision Making - Medical Decision Making Pt was seen at bedside, also will be seen by attending Dr. Araiza. Pt presenting with hypotension, likely 2/2 hypovolemia, concerning story for obstruction vs re-infected abdominal mesh. Will evaluate for electrolyte imbalances, infection, and abdominal pathology with labs, sepsis w/u, and CT abd/pelvis non-contrast. Provided 1 L IV NS, 1 amp d50, zofran, zosyn, and ofirmev. Will continue to reassess pt and monitor for symptomatic improvement. ECG: NSR, incomplete RBBB (HR 94, UT 172, QRS 114, QTc 452). No TWIs or significant ST segment changes. No significant changes from prior ECG. 05/16/19 19:20 CBC: platelets 89 CMP: Bun/Cr elevated, at baseline for pt Trop <.[address] scan. Pt signed out to night team. 05/16/19 19:23 Discharge - Discharge Information Problems reviewed: Yes Clinical Impression/Diagnosis: Abdominal pain Qualifiers: Abdominal location: generalized Qualified Code(s): R10.84 - Generalized abdominal pain Hypotension Qualifiers: Hypotension type: unspecified hypotension type Qualified Code(s): I95.9 - Hypotension, unspecified Condition: Stable - Follow up/Referral Referrals: Elvis Lau MD [Primary Care Provider] - - Patient Discharge Instructions - Post Discharge Activity
[2019-05-16] MEDS ORDERED: PIPERACILLIN/TAZOB 3.375 GM 2.25 GM in DEXTROSE 5%-WATER - 50 ML IVPB ONE (18:28)
[2019-05-16] MEDS ORDERED: ACETAMINOPHEN 1000 MG/100 ML VIAL (NON FORMULARY) IVPB ONE (18:47)
[2019-05-16] MEDS ORDERED: ACETAMINOPHEN INJECTION 100 ML IVPB ONE (18:47)
[2019-05-16] MEDS ORDERED: PIPERACILLIN/TAZOB 2.25 GM 2.25 GM/50 ML BAG IVPB ONE (18:47)
[2019-05-16 19:11] LABS: ANISOCYTOSIS 2+; MACROCYTOSIS 1+; PLATELET ESTIMATE DECREASED
--- NOTE | 2019-05-16 19:27 | PDOC ---
*Physical Exam - Vital Signs Last Vital Signs Temp Pulse Resp BP Pulse Ox 87 16 87/45 L 95 05/16/19 18:07 05/16/19 18:07 05/16/19 18:07 05/16/19 18:07 - Physical Exam Comments: 05/16/19 19:28 Patient signed out by resident Dr. Gongora In short patient is a 54 yo F, with PMH of ESRD (polycystic kidney, DM, HD T/R/ Sat), asthma, anemia, and multiple abdominal surgeries, who presents with vomiting and abdominal pain. Found to have LUQ abdomain ltenderness, ostomy site with purulent drainage Given ivf, d50, zosyn, zofran Pending CT ED Course: CXR: L permacath, no signs of infiltrate or pleural effusion CTAP with signs of bowel obstruction Plan to transfer to [facility] for surgical eval by her surgeons Discussed case with [facility] [address] Lima ED Treatment Course - LABORATORY CBC & Chemistry Diagram: 05/16/19 16:54 05/16/19 16:54 - ADDITIONAL ORDERS Additional order review: Laboratory Results 05/16/19 05/16/19 05/16/19 17:06 16:54 16:54 PT with INR 15.40 H INR 1.30 H Sodium 133 L Potassium 3.6 Chloride 98 Carbon Dioxide 22 Anion Gap 13 BUN 26.6 H Creatinine 7.4 H* Est GFR (CKD-EPI)AfAm 6.63 Est GFR (CKD-EPI)NonAf 5.72 Random Glucose 52 L Lactic Acid 2.3 H* Calcium 8.2 L Phosphorus 5.3 H Magnesium 1.9 Total Bilirubin 0.5 AST 19 ALT 13 Alkaline Phosphatase 103 Creatine Kinase 43 Troponin I < 0.02 Total Protein 6.9 Albumin 1.5 L Lipase 10 L 05/16/19 16:54 RBC 3.40 L MCV 101.3 H MCHC 31.3 L RDW 20.9 H MPV 9.5 Neutrophils % 72.0 Lymphocytes % 16.6 D Monocytes % 9.6 D Eosinophils % 1.3 Basophils % 0.5 - Medications Given in the ED: ED Medications Discontinued Medications Generic Name Dose Route Start Last Admin Trade Name Freq PRN Reason Stop Dose Admin Acetaminophen 1,000 mg 05/16/19 18:47 05/16/19 18:55 Ofirmev Injection - IVPB 05/16/19 18:48 1,000 mg ONCE ONE Administration Dextrose 25 gm 05/16/19 18:02 05/16/19 17:45 D50w (Vial) - IVPUSH 05/16/19 18:03 25 gm NOW ONE Administration Sodium Chloride 1,000 mls @ 1,000 mls/hr 05/16/19 17:33 05/16/19 17:40 Normal Saline - IV 05/16/19 18:32 1,000 mls/hr ASDIR STA Administration Piperacillin Sod/Tazobactam 50 mls @ 100 mls/hr 05/16/19 18:28 05/16/19 18:55 Sod 2.25 gm/ Dextrose IVPB 05/16/19 18:57 100 mls/hr ONCE ONE Administration Protocol Ondansetron HCl 4 mg 05/16/19 17:21 05/16/19 17:40 Zofran Injection IVPUSH 05/16/19 17:22 4 mg ONCE ONE Administration Discharge - Discharge Information Clinical Impression/Diagnosis: Abdominal pain Qualifiers: Abdominal location: generalized Qualified Code(s): R10.84 - Generalized abdominal pain Hypotension Qualifiers: Hypotension type: unspecified hypotension type Qualified Code(s): I95.9 - Hypotension, unspecified Condition: Stable - Follow up/Referral Referrals: Elvis Lau MD [Primary Care Provider] - - Patient Discharge Instructions - Post Discharge Activity
[2019-05-16] MEDS ORDERED: DEXTROSE 5%-NORMAL SALINE 500 ML IV ONE (20:14)
[2019-05-16 20:15] VITALS: PULSE 88
[2019-05-16] MEDS ORDERED: SODIUM CHLORIDE 500 ML IV SCH ×2 (20:45→23:15)
--- NOTE | 2019-05-16 20:57 | PDOC ---
*Physical Exam - Vital Signs Last Vital Signs Temp Pulse Resp BP Pulse Ox 88 16 88/51 L 94 L 05/16/19 19:40 05/16/19 19:40 05/16/19 19:40 05/16/19 19:40 - Physical Exam General Appearance: Yes: Nourished Respiratory/Chest: positive: Lungs Clear, Normal Breath Sounds Cardiovascular: positive: Regular Rhythm, Regular Rate, S1, S2 Gastrointestinal/Abdominal: positive: Tender (anterior abd wound small drainage inferior aspect. mild left mid quad ttp. no rebound no guarding. ) Musculoskeletal: positive: Normal Inspection ED Treatment Course - LABORATORY CBC & Chemistry Diagram: 05/16/19 16:54 05/16/19 16:54 - ADDITIONAL ORDERS Additional order review: Laboratory Results 05/16/19 05/16/19 05/16/19 19:56 17:06 16:54 PT with INR 15.40 H INR 1.30 H Sodium Potassium Chloride Carbon Dioxide Anion Gap BUN Creatinine Est GFR (CKD-EPI)AfAm Est GFR (CKD-EPI)NonAf POC Glucometer 63 Random Glucose Lactic Acid 2.3 H* Calcium Phosphorus Magnesium Total Bilirubin AST ALT Alkaline Phosphatase Creatine Kinase Troponin I Total Protein Albumin Lipase 05/16/19 16:54 PT with INR INR Sodium 133 L Potassium 3.6 Chloride 98 Carbon Dioxide 22 Anion Gap 13 BUN 26.6 H Creatinine 7.4 H* Est GFR (CKD-EPI)AfAm 6.63 Est GFR (CKD-EPI)NonAf 5.72 POC Glucometer Random Glucose 52 L Lactic Acid Calcium 8.2 L Phosphorus 5.3 H Magnesium 1.9 Total Bilirubin 0.5 AST 19 ALT 13 Alkaline Phosphatase 103 Creatine Kinase 43 Troponin I < 0.02 Total Protein 6.9 Albumin 1.5 L Lipase 10 L 05/16/19 05/16/19 19:56 16:54 RBC 3.40 L MCV 101.3 H MCHC 31.3 L RDW 20.9 H MPV 9.5 Neutrophils % 72.0 Lymphocytes % 16.6 D Monocytes % 9.6 D Eosinophils % 1.3 Basophils % 0.5 POC Glucometer 63 - Medications Given in the ED: ED Medications Discontinued Medications Generic Name Dose Route Start Last Admin Trade Name Freq PRN Reason Stop Dose Admin Acetaminophen 1,000 mg 05/16/19 18:47 05/16/19 18:55 Ofirmev Injection - IVPB 05/16/19 18:48 1,000 mg ONCE ONE Administration Dextrose 25 gm 05/16/19 18:02 05/16/19 17:45 D50w (Vial) - IVPUSH 05/16/19 18:03 25 gm NOW ONE Administration Sodium Chloride 1,000 mls @ 1,000 mls/hr 05/16/19 17:33 05/16/19 17:40 Normal Saline - IV 05/16/19 18:32 1,000 mls/hr ASDIR STA Administration Piperacillin Sod/Tazobactam 50 mls @ 100 mls/hr 05/16/19 18:28 05/16/19 18:55 Sod 2.25 gm/ Dextrose IVPB 05/16/19 18:57 100 mls/hr ONCE ONE Administration Protocol Dextrose/Sodium Chloride 500 mls @ 1,000 mls/hr 05/16/19 20:14 05/16/19 20:33 D5-Ns - IV 05/16/19 20:43 1,000 mls/hr ONCE ONE Administration Ondansetron HCl 4 mg 05/16/19 17:21 05/16/19 17:40 Zofran Injection IVPUSH 05/16/19 17:22 4 mg ONCE ONE Administration Medical Decision Making - Medical Decision Making 05/16/19 20:53 54 yo F with h/o polycystic injury, dialysis ( TRS, last dailysis two days ago ) mult abd surgeries, s/p removal infected mesch recently with chronic healing abd wound. here with n/v and couldn't receive dialysis today. because her blood pressure was 60's systolic. pt states she has been throwing up daily for 3 weeks. does not have appetitie. last bm was 4 days ago, passing flatus. no f/c no cp no sob. states she is not eating or drinking over last 3 weeks. stopped making urine 3 weeks ago. pt signed out to me by day team. assumed care pt at [address] a/p r/o intrabdominal infection. obstruction. awaiting ct. pt will likely require admission due to severity of dehydration, low bp, and intractiable daily vomiting. focused unofficial screening tte, performed, no pericardial effusion. overall normal contractility. 05/17/19 00:12 pt with proximal sbo vs. ileus on ct a/p will transer to [facility] for eval by her prior surgeons. accepted by DR Rudolph. pt agreeable to transfer. Discharge - Discharge Information Problems reviewed: Yes Clinical Impression/Diagnosis: Bowel obstruction Abdominal pain Qualifiers: Abdominal location: generalized Qualified Code(s): R10.84 - Generalized abdominal pain Hypotension Qualifiers: Hypotension type: unspecified hypotension type Qualified Code(s): I95.9 - Hypotension, unspecified Condition: Stable Disposition: TRANSFER ACUTE CARE/OTHER HOSP - Follow up/Referral Referrals: Elvis Lau MD [Primary Care Provider] - - Patient Discharge Instructions - Post Discharge Activity - Transfer to Acute Care Facility Receiving Facility Name: [facility]
[2019-05-16] MEDS ORDERED: DEXTROSE 50%-WATER - 25 GM/50 ML VIAL ONE (23:57)
[2019-05-17] MEDS ORDERED: SODIUM CHLORIDE 0.9% 1000 ML INFUS.BAG IV ONE (00:46)
[2019-05-17 00:48] VITALS: BP 89/59; TEMP 97.9
--- NOTE | 2019-05-17 14:01 | EKG ---
Test Reason : Blood Pressure : / mmHG Vent. Rate : 094 BPM Atrial Rate : 094 BPM P-R Int : 172 ms QRS Dur : 114 ms QT Int : 362 ms P-R-T Axes : 042 005 091 degrees QTc Int : 452 ms NORMAL SINUS RHYTHM POSSIBLE LEFT ATRIAL ENLARGEMENT LOW VOLTAGE QRS INCOMPLETE RIGHT BUNDLE BRANCH BLOCK NONSPECIFIC T WAVE ABNORMALITY ABNORMAL ECG Confirmed by SONYA SNEED MD ([id number]) on 05/17/2019 2:01:00 PM Referred By: Confirmed By:SONYA SNEED MD
== END 2019-05-17 00:53 | disposition short-term general hospital (02) ==
LOC: JER 16:20
PROC: 3E03329 Introduction of Other Anti-infective into Peripheral Vein, Percutaneous Approach (ICD-10-PCS; principal; 2019-05-16)
PROC: 3E033GC Introduction of Other Therapeutic Substance into Peripheral Vein, Percutaneous Approach (ICD-10-PCS; 2019-05-16)
PROC: 3E033NZ Introduction of Analgesics, Hypnotics, Sedatives into Peripheral Vein, Percutaneous Approach (ICD-10-PCS; 2019-05-16)
PROC: 3E0337Z Introduction of Electrolytic and Water Balance Substance into Peripheral Vein, Percutaneous Approach (ICD-10-PCS; 2019-05-16)
PROC: 3E0337Z Introduction of Electrolytic and Water Balance Substance into Peripheral Vein, Percutaneous Approach (ICD-10-PCS; 2019-05-16)
DX: K56.699 Other intestinal obstruction unspecified as to partial versus complete obstruction (principal); R10.84 Generalized abdominal pain; I95.9 Hypotension, unspecified; E11.22 Type 2 diabetes mellitus with diabetic chronic kidney disease; I12.0 Hypertensive chronic kidney disease with stage 5 chronic kidney disease or end stage renal disease; N18.6 End stage renal disease; N17.8 Other acute kidney failure; Z99.2 Dependence on renal dialysis; Z79.4 Long term (current) use of insulin; D64.9 Anemia, unspecified; J45.909 Unspecified asthma, uncomplicated; Z98.890 Other specified postprocedural states; F17.210 Nicotine dependence, cigarettes, uncomplicated
CPT/HCPCS: 36415; 71045-TC-FY; 74176-TC; 80053; 82550; 82962; 83605; 83690; 83735; 84100; 84484; 85025; 85610; 87040; 93005; 93010; 99285-25; J0131; J7030

== ENCOUNTER 2020-09-12 12:03 | Inpatient (IN) | payer BC, OTHER ==
[2020-09-12] MEDS ORDERED: DEXTROSE 50%-WATER - 25 GM/50 ML VIAL IVPUSH ONE ×2 (13:16→22:48)
[2020-09-12] MEDS ORDERED: DEXTROSE 50%-WATER 25 GM/50 ML DISP.SYRIN ONE ×2 (13:18→23:04)
[2020-09-12 13:48] LABS: BASO % 0.8 % (0-2.0); EOS % 0.6 % (0-4.5); HEMATOCRIT 35.6 % (32.4-45.2); HEMOGLOBIN 11.5 GM/dL (10.7-15.3); LYMPH % 19.2 % (8-40); MCH 31.3 pg (25.7-33.7); MCHC 32.2 g/dl (32.0-36.0); MEAN CELL VOLUME 97.1 fl (80-96); MEAN PLT VOLUME 8.8 fl (7.5-11.1); NEUT % 70.4 % (42.8-82.8); PLATELET COUNT 87 K/MM3 (134-434); RBC 3.66 M/mm3 (3.60-5.2); RDW 15.5 % (11.6-15.6); VENOUS BASE EXCESS -0.9 mmol/L (-2-2); VENOUS O2 SATURATION 67.1 % (70-80); VENOUS PCO2 61.1 mmHg (38-52); VENOUS PH 7.264 (7.310-7.410); WHITE BLOOD COUNT 3.6 K/mm3 (4.0-10.0)
[2020-09-12 14:07] LABS: CALCIUM 9.1 mg/dL (8.5-10.1)
[2020-09-12 14:08] LABS: ALBUMIN 3.3 g/dl (3.4-5.0); BLOOD UREA NITROGEN 57.6 mg/dL (7-18); MAGNESIUM 2.2 mg/dL (1.8-2.4)
[2020-09-12 14:11] LABS: PHOSPHOROUS 6.2 mg/dL (2.5-4.9)
[2020-09-12 14:12] LABS: BILIRUBIN,TOTAL 0.7 mg/dL (0.2-1); TOT PROT 8.4 g/dl (6.4-8.2)
[2020-09-12 14:21] LABS: CREATININE 9.3 mg/dL (0.55-1.3)
[2020-09-12] MEDS ORDERED: SODIUM CHLORIDE 250 ML IV PRN (15:58)
[2020-09-12 19:43] VITALS: BMI 31.2
[2020-09-13 06:47] LABS: BASO % 0.7 % (0-2.0); EOS % 1.5 % (0-4.5); HEMATOCRIT 33.1 % (32.4-45.2); HEMOGLOBIN 10.9 GM/dL (10.7-15.3); LYMPH % 24.4 % (8-40); MCH 31.9 pg (25.7-33.7); MCHC 33.1 g/dl (32.0-36.0); MEAN CELL VOLUME 96.4 fl (80-96); MONO % 14.2 % (3.8-10.2); NEUT % 59.2 % (42.8-82.8); PLATELET COUNT 77 K/MM3 (134-434); RBC 3.43 M/mm3 (3.60-5.2); RDW 15.6 % (11.6-15.6); WHITE BLOOD COUNT 3.1 K/mm3 (4.0-10.0)
[2020-09-13 07:11] LABS: POTASSIUM 3.9 mmol/L (3.5-5.1)
[2020-09-13 07:16] LABS: BLOOD UREA NITROGEN 34.1 mg/dL (7-18); CALCIUM 8.6 mg/dL (8.5-10.1)
[2020-09-13 07:21] LABS: BILIRUBIN,TOTAL 1.3 mg/dL (0.2-1); TOT PROT 7.4 g/dl (6.4-8.2)
[2020-09-13] MEDS ORDERED: ALBUTEROL SO4 HFA INHALER IH PRN (08:10)
[2020-09-13] MEDS: CARVEDILOL 12.5 MG TABLET (FP) PO SCH (10:26)
[2020-09-13] MEDS: HEPARIN NA (PORCINE) 5,000 UNITS/ML 1ML VIAL SQ SCH ×2 (10:26→22:05)
[2020-09-13] MEDS: SEVELAMER CARBONATE 800 MG TAB (FP) PO SCH ×2 (12:08→17:24)
[2020-09-13] MEDS ORDERED: PT OWN MED DRAWER 7, Y5N ONE (21:58)
[2020-09-13] MEDS: QUEtiapine FUMARATE 200 MG TABLET PO SCH (22:05)
[2020-09-14] MEDS: SEVELAMER CARBONATE 800 MG TAB (FP) PO SCH ×3 (09:00→16:44)
[2020-09-14 09:02] LABS: BASO % 0.7 % (0-2.0); EOS % 2.4 % (0-4.5); HEMATOCRIT 33.7 % (32.4-45.2); HEMOGLOBIN 10.9 GM/dL (10.7-15.3); MCH 31.6 pg (25.7-33.7); MCHC 32.5 g/dl (32.0-36.0); MEAN CELL VOLUME 97.1 fl (80-96); MEAN PLT VOLUME 8.4 fl (7.5-11.1); MONO % 11.2 % (3.8-10.2); NEUT % 64.7 % (42.8-82.8); PLATELET COUNT 69 K/MM3 (134-434); RBC 3.47 M/mm3 (3.60-5.2); RDW 15.7 % (11.6-15.6); WHITE BLOOD COUNT 2.7 K/mm3 (4.0-10.0)
[2020-09-14] MEDS: HEPARIN NA (PORCINE) 5,000 UNITS/ML 1ML VIAL SQ SCH ×2 (09:17→21:44)
[2020-09-14] MEDS: CARVEDILOL 12.5 MG TABLET (FP) PO SCH (09:17)
[2020-09-14 09:21] LABS: POTASSIUM 4.3 mmol/L (3.5-5.1)
[2020-09-14 09:35] LABS: CALCIUM 8.7 mg/dL (8.5-10.1)
[2020-09-14 09:36] LABS: ALBUMIN 2.8 g/dl (3.4-5.0); BLOOD UREA NITROGEN 39.4 mg/dL (7-18)
[2020-09-14 09:41] LABS: BILIRUBIN,TOTAL 0.6 mg/dL (0.2-1); TOT PROT 7.2 g/dl (6.4-8.2)
[2020-09-14 09:48] LABS: CREATININE 8.2 mg/dL (0.55-1.3)
[2020-09-14] MEDS ORDERED: PT OWN MED DRAWER 7, Y5N ONE (21:18)
[2020-09-14] MEDS: QUEtiapine FUMARATE 200 MG TABLET PO SCH (21:44)
[2020-09-14] MEDS ORDERED: AMITRIPTYLINE HCL 25 MG TABLET PO SCH (22:00)
[2020-09-15] MEDS: SEVELAMER CARBONATE 800 MG TAB (FP) PO SCH ×3 (08:00→17:29)
[2020-09-15] MEDS ORDERED: SODIUM CHLORIDE 250 ML IV PRN (08:56)
[2020-09-15] MEDS ORDERED: HEPARIN NA (PORCINE) 5,000 UNITS/ML 1ML VIAL IVPUSH ONE (09:00)
[2020-09-15] MEDS: HEPARIN NA (PORCINE) 5,000 UNITS/ML 1ML VIAL SQ SCH (10:00)
[2020-09-15 10:31] LABS: HEMATOCRIT 32.1 % (32.4-45.2); HEMOGLOBIN 10.5 GM/dL (10.7-15.3); MCHC 32.8 g/dl (32.0-36.0); MEAN CELL VOLUME 97.6 fl (80-96); MEAN PLT VOLUME 8.6 fl (7.5-11.1); PLATELET COUNT 59 K/MM3 (134-434); RBC 3.29 M/mm3 (3.60-5.2); RDW 15.8 % (11.6-15.6); WHITE BLOOD COUNT 2.8 K/mm3 (4.0-10.0)
[2020-09-15 10:43] LABS: POTASSIUM 4.2 mmol/L (3.5-5.1)
[2020-09-15 10:51] LABS: CALCIUM 7.8 mg/dL (8.5-10.1)
[2020-09-15 10:55] LABS: CREATININE 9.5 mg/dL (0.55-1.3)
[2020-09-15 14:18] VITALS: BP 119/68; PULSE 72; TEMP 98.1
[2020-09-15] MEDS: CARVEDILOL 12.5 MG TABLET (FP) PO SCH (14:21)
== END 2020-09-15 18:29 | disposition home health service (06) | DRG 388 ==
LOC: JER 12:03 → JERBED 15:44 → J4S 19:18
PROVIDERS: ADMIT Family Medicine; ATTEND Internal Medicine
PROC: 5A1D70Z Performance of Urinary Filtration, Intermittent, Less than 6 Hours Per Day (ICD-10-PCS; principal; 2020-09-15)
DX: K56.7 Ileus, unspecified (principal); N18.6 End stage renal disease; G93.41 Metabolic encephalopathy; I12.0 Hypertensive chronic kidney disease with stage 5 chronic kidney disease or end stage renal disease; R10.84 Generalized abdominal pain; G47.33 Obstructive sleep apnea (adult) (pediatric); R07.9 Chest pain, unspecified; F22 Delusional disorders; K21.9 Gastro-esophageal reflux disease without esophagitis; K59.03 Drug induced constipation; F17.210 Nicotine dependence, cigarettes, uncomplicated; K83.8 Other specified diseases of biliary tract; E11.22 Type 2 diabetes mellitus with diabetic chronic kidney disease; F41.8 Other specified anxiety disorders; Z99.2 Dependence on renal dialysis
CPT/HCPCS: 36415; 70450-TC; 71045-TC-FY; 74177-TC; 76705-TC; 80048; 80053; 82140; 82550; 82803; 82962; 83605; 83690; 83735; 84100; 84443; 84484; 85025; 85027; 86803; 87340; 87804; 93005; 93010; 97116-GP; 97161-GP; 99285-25; C9803; J1644; Q9967; U0003

== ENCOUNTER 2021-02-20 14:57 | Inpatient (IN) | payer BC, OTHER ==
[2021-02-20 16:23] LABS: BASO % 0.6 % (0-2.0); EOS % 1.4 % (0-4.5); HEMATOCRIT 26.2 % (32.4-45.2); HEMOGLOBIN 8.7 GM/dL (10.7-15.3); LYMPH % 12.8 % (8-40); MCH 32.1 pg (25.7-33.7); MCHC 33.1 g/dl (32.0-36.0); MEAN CELL VOLUME 96.8 fl (80-96); MEAN PLT VOLUME 7.9 fl (7.5-11.1); MONO % 8.9 % (3.8-10.2); NEUT % 76.3 % (42.8-82.8); PLATELET COUNT 102 10^3/uL (134-434); RBC 2.71 M/mm3 (3.60-5.2); RDW 17.9 % (11.6-15.6); WHITE BLOOD COUNT 3.5 K/mm3 (4.0-10.0)
[2021-02-20] MEDS ORDERED: LACTATED RINGERS SOLUTION 1000 ML INFUS.BAG IV ONE (16:45)
[2021-02-20] MEDS ORDERED: morphine CARPU-JECT 4 MG/1 ML DISP.SYRIN IVPUSH ONE (16:45)
[2021-02-20] MEDS ORDERED: ONDANSETRON 4 MG/2 ML VIAL IVPUSH ONE (16:45)
[2021-02-20 16:47] LABS: CHLORIDE 98 mmol/L (98-107); SODIUM 131 mmol/L (136-145)
[2021-02-20 16:50] LABS: ALBUMIN 2.3 g/dl (3.4-5.0); ANION GAP 14 MMOL/L (8-16); BLOOD UREA NITROGEN 52.1 mg/dL (7-18); CALCIUM 7.9 mg/dL (8.5-10.1); CO2 20 mmol/L (21-32); GLUCOSE,RANDOM 68 mg/dL (74-106)
[2021-02-20] MEDS ORDERED: ACETAMINOPHEN 1000 MG/100 ML VIAL (NON FORMULARY) IVPB ONE (16:51)
[2021-02-20 16:53] LABS: SGOT/AST 14 U/L (15-37); SGPT/ALT 8 U/L (13-61)
[2021-02-20 16:55] LABS: BILIRUBIN,TOTAL 0.5 mg/dL (0.2-1); TOT PROT 7.3 g/dl (6.4-8.2)
[2021-02-20 16:56] LABS: ALK PHOS 84 U/L (45-117)
[2021-02-20 17:11] LABS: CREATININE 7.8 mg/dL (0.55-1.3)
[2021-02-20] MEDS ORDERED: ACETAMINOPHEN INJECTION 100 ML IVPB ONE (17:12)
[2021-02-20] MEDS ORDERED: ONDANSETRON 4 MG/2 ML VIAL ONE (17:12)
[2021-02-20 17:17] LABS: INR 1.2 (0.83-1.09); PROTHROMBIN TIME (PATIENT) 14.4 SEC (9.7-13.0)
[2021-02-20 17:19] LABS: ACTIVATED PTT 36.7 SECONDS (25.2-36.5)
[2021-02-20] MEDS ORDERED: morphine SULFATE 4 MG/ML VIAL ONE (17:42)
[2021-02-20 18:44] LABS: LIPASE 113 U/L (73-393)
[2021-02-20] MEDS ORDERED: KETAMINE HCL 500 MG/10 ML VIAL IVPB ONE (19:35)
[2021-02-20] MEDS ORDERED: KETAMINE HCL 200 MG/20 ML VIAL IVPB ONE (20:00)
[2021-02-20] MEDS ORDERED: PIPERACILLIN/TAZOB 3.375 GM 3.375 GM in DEXTROSE 5%-WATER - 50 ML IVPB ONE (20:20)
[2021-02-20] MEDS ORDERED: KETAMINE HCL 200 MG/20 ML VIAL ONE (20:41)
[2021-02-20] MEDS ORDERED: PIPERACILLIN/TAZOB 3.375 GM 3.375 GM/50 ML BAG IVPB ONE (20:42)
[2021-02-20] MEDS ORDERED: HYDROmorphone HCl 2 MG/ML VIAL IVPUSH PRN (21:44)
[2021-02-20] MEDS ORDERED: LACTATED RINGERS SOLUTION 1,000 ML/1,000 ML INFUS.BAG IV SCH (22:00)
[2021-02-20] MEDS ORDERED: ONDANSETRON 4 MG/2 ML VIAL IVPUSH PRN (22:01)
[2021-02-20] MEDS ORDERED: ACETAMINOPHEN 1000 MG/100 ML VIAL (NON FORMULARY) IVPB PRN (22:01)
[2021-02-20] MEDS ORDERED: SUCCINYLCHOLINE CHLORIDE 200 MG/10 ML SYRINGE ONE (22:12)
[2021-02-20] MEDS ORDERED: PROPOFOL 20 ML ONE (22:12)
[2021-02-20] MEDS ORDERED: ROCURONIUM BROMIDE 100 MG/10 ML VIAL ONE (22:12)
[2021-02-20] MEDS ORDERED: DEXTROSE 5%-LACTATED RINGERS 1,000 ML IV SCH ×3 (22:15→22:42)
[2021-02-20] MEDS: INSULIN SLIDING SCALE (NOVOLOG) 1 VIAL SQ SCH (22:59)
[2021-02-20 23:40] LABS: RETICULOCYTES 2.49 % (0.5-1.5)
[2021-02-21] MEDS ORDERED: PIPERACILLIN/TAZOBACTAM 3.375 GM VIAL IVPB ONE ×2
[2021-02-21] MEDS ORDERED: HEPARIN NA (PORCINE) 5,000 UNITS/ML 1ML VIAL ONE (00:04)
[2021-02-21 00:05] LABS: IRON SERUM 40 ug/dL (50-175); TOTAL IRON BINDING CAPACITY 89 ug/dL (250-450)
[2021-02-21] MEDS ORDERED: DEXAMETHASONE SOD PHOSPHATE 4 MG/1 ML VIAL ONE (00:16)
[2021-02-21] MEDS ORDERED: HYDROmorphone HCl 2 MG/ML VIAL ONE (00:33)
[2021-02-21] MEDS ORDERED: PHENYLEPHRINE HCL 10 MG/1 ML SINGLE DOSE VIAL ONE (02:08)
[2021-02-21] MEDS ORDERED: ONDANSETRON 4 MG/2 ML VIAL ONE (02:46)
[2021-02-21] MEDS ORDERED: NEOSTIGMINE METHYLSULFATE 0.5 MG/ML - 10 ML MDV ONE (02:57)
[2021-02-21] MEDS ORDERED: GLYCOPYRROLATE 0.2 MG/1 ML VIAL ONE (02:57)
[2021-02-21] MEDS ORDERED: SUCCINYLCHOLINE CHLORIDE 200 MG/10 ML SYRINGE ONE (03:07)
[2021-02-21] MEDS ORDERED: ACETAMINOPHEN INJECTION 100 ML IVPB ONE (03:19)
[2021-02-21] MEDS ORDERED: KETOROLAC TROMETHAMINE 30 MG/1 ML VIAL ONE (03:27)
[2021-02-21] MEDS ORDERED: ACETAMINOPHEN 1000 MG/100 ML VIAL (NON FORMULARY) IVPB ONE (03:29)
[2021-02-21] MEDS ORDERED: KETOROLAC TROMETHAMINE 30 MG/1 ML VIAL IVPUSH ONE (03:29)
[2021-02-21] MEDS ORDERED: PIPERACILLIN/TAZOBACTAM 2.25 GM VIAL IVPB ONE ×3 (06:21→17:03)
[2021-02-21] MEDS ORDERED: DEXTROSE 5%-WATER - 50 ML IVPB ONE ×3 (06:22→17:03)
[2021-02-21] MEDS: CHLORHEXIDINE GLUCONATE 4% CLEANSER FOR DECOLONIZATION TP SCH ×2 (06:24→21:37)
[2021-02-21] MEDS: MUPIROCIN 2% TOPICAL OINTMENT FOR DECOLONIZATION NS SCH ×3 (06:24→21:37)
[2021-02-21] MEDS: PIPERACILLIN/TAZOB 2.25 GM 2.25 GM in DEXTROSE 5%-WATER - 50 ML IVPB SCH ×4 (06:25→17:12)
[2021-02-21] MEDS: INSULIN SLIDING SCALE (NOVOLOG) 1 VIAL SQ SCH ×4 (06:55→21:43)
[2021-02-21 12:13] LABS: HEMATOCRIT 30.2 % (32.4-45.2); HEMOGLOBIN 9.9 GM/dL (10.7-15.3); MCHC 32.8 g/dl (32.0-36.0); MEAN CELL VOLUME 97.7 fl (80-96); MEAN PLT VOLUME 8.8 fl (7.5-11.1); PLATELET COUNT 110 10^3/uL (134-434); RBC 3.09 M/mm3 (3.60-5.2); RDW 17.7 % (11.6-15.6); WHITE BLOOD COUNT 7.4 K/mm3 (4.0-10.0)
[2021-02-21 12:33] LABS: CHLORIDE 97 mmol/L (98-107); SODIUM 131 mmol/L (136-145)
[2021-02-21 12:35] LABS: CALCIUM 7.6 mg/dL (8.5-10.1); GLUCOSE,RANDOM 75 mg/dL (74-106)
[2021-02-21 12:36] LABS: ALBUMIN 2.1 g/dl (3.4-5.0); ANION GAP 15 MMOL/L (8-16); BLOOD UREA NITROGEN 60.9 mg/dL (7-18); CO2 19 mmol/L (21-32); MAGNESIUM 1.6 mg/dL (1.8-2.4)
[2021-02-21 12:39] LABS: PHOSPHOROUS 7.6 mg/dL (2.5-4.9); SGOT/AST 10 U/L (15-37); SGPT/ALT 8 U/L (13-61)
[2021-02-21 12:40] LABS: BILIRUBIN,TOTAL 0.5 mg/dL (0.2-1); TOT PROT 6.8 g/dl (6.4-8.2)
[2021-02-21 12:41] LABS: ALK PHOS 76 U/L (45-117)
[2021-02-21] MEDS ORDERED: DEXTROSE 10%-WATER - 1,000 ML IV SCH (13:00)
[2021-02-21 13:08] LABS: ANISOCYTOSIS 1+; MACROCYTOSIS 1+; PLATELET ESTIMATE DECREASED
[2021-02-21] MEDS: DEXTROSE 5%-NORMAL SALINE 1,000 ML IV SCH (13:42)
[2021-02-21] MEDS ORDERED: SODIUM CHLORIDE 250 ML IV PRN (14:38)
[2021-02-21] MEDS ORDERED: VASOPRESSIN 20 UNITS/ML VIAL IV ONE (19:50)
[2021-02-21] MEDS ORDERED: VASOPRESSIN 40 UNITS in SODIUM CHLORIDE 98 ML IVPB SCH (20:00)
[2021-02-21] MEDS: ALBUMIN HUMAN 25% 12.5 GM/50 ML VIAL IVPB PRN ×2 (21:08→21:25)
[2021-02-21] MEDS: ACETAMINOPHEN 1000 MG/100 ML VIAL (NON FORMULARY) IVPB PRN (21:33)
[2021-02-21] MEDS: HEPARIN NA (PORCINE) 5,000 UNITS/ML 1ML VIAL SQ SCH (21:39)
[2021-02-21] MEDS ORDERED: ATROPINE SULFATE 1 MG/10 ML DISP.SYRIN ONE (22:03)
[2021-02-21] MEDS ORDERED: DOPAMINE 400 MG/D5W - 400,000 MCG/250 ML INFUS.BAG IVPB ONE (22:14)
[2021-02-21] MEDS: DOPAMINE 400 MG/D5W - 400,000 MCG/250 ML INFUS.BAG IVPB SCH (22:30)
[2021-02-22] MEDS ORDERED: PIPERACILLIN/TAZOBACTAM 2.25 GM VIAL IVPB ONE ×3 (01:39→17:19)
[2021-02-22] MEDS ORDERED: DEXTROSE 5%-WATER - 50 ML IVPB ONE ×3 (01:39→17:19)
[2021-02-22] MEDS: PIPERACILLIN/TAZOB 2.25 GM 2.25 GM in DEXTROSE 5%-WATER - 50 ML IVPB SCH ×4 (02:20→17:41)
[2021-02-22] MEDS: INSULIN SLIDING SCALE (NOVOLOG) 1 VIAL SQ SCH ×4 (07:08→21:46)
[2021-02-22] MEDS: ACETAMINOPHEN 1000 MG/100 ML VIAL (NON FORMULARY) IVPB PRN ×2 (10:06→17:40)
[2021-02-22] MEDS: MUPIROCIN 2% TOPICAL OINTMENT FOR DECOLONIZATION NS SCH ×2 (10:07→21:39)
[2021-02-22] MEDS: HEPARIN NA (PORCINE) 5,000 UNITS/ML 1ML VIAL SQ SCH ×2 (10:07→21:39)
[2021-02-22] MEDS: DEXTROSE 5%-NORMAL SALINE 1,000 ML IV SCH (10:13)
[2021-02-22] MEDS: PANTOPRAZOLE SODIUM 40 MG VIAL IVPUSH SCH (10:48)
[2021-02-22 11:17] LABS: BASO % 0.2 % (0-2.0); EOS % 0.2 % (0-4.5); HEMOGLOBIN 8.9 GM/dL (10.7-15.3); LYMPH % 5.4 % (8-40); MCH 32.2 pg (25.7-33.7); MEAN CELL VOLUME 97.7 fl (80-96); MEAN PLT VOLUME 8.6 fl (7.5-11.1); MONO % 8.1 % (3.8-10.2); NEUT % 86.1 % (42.8-82.8); PLATELET COUNT 112 10^3/uL (134-434); RBC 2.76 M/mm3 (3.60-5.2); RDW 17.5 % (11.6-15.6); WHITE BLOOD COUNT 7.4 K/mm3 (4.0-10.0)
[2021-02-22 11:35] VITALS: BMI 32.2
[2021-02-22 11:55] LABS: BLOOD UREA NITROGEN 44.2 mg/dL (7-18); CALCIUM 7.7 mg/dL (8.5-10.1)
[2021-02-22 11:56] LABS: ALBUMIN 2.4 g/dl (3.4-5.0); MAGNESIUM 1.8 mg/dL (1.8-2.4)
[2021-02-22 11:59] LABS: CREATININE 6.5 mg/dL (0.55-1.3); PHOSPHOROUS 6.6 mg/dL (2.5-4.9)
[2021-02-22 12:00] LABS: BILIRUBIN,TOTAL 0.5 mg/dL (0.2-1)
[2021-02-22] MEDS: AMINO ACIDS 4.25%/D5W 1,000 ML IV SCH (14:00)
[2021-02-22] MEDS ORDERED: PT OWN MED DRAWER 7, Y5N ONE (14:50)
[2021-02-22] MEDS: CHLORHEXIDINE GLUCONATE 4% CLEANSER FOR DECOLONIZATION TP SCH (21:39)
[2021-02-22] MEDS: DOPAMINE 400 MG/D5W - 400,000 MCG/250 ML INFUS.BAG IVPB SCH (21:50)
[2021-02-23] MEDS ORDERED: DEXTROSE 5%-WATER - 50 ML IVPB ONE ×3 (00:17→17:25)
[2021-02-23] MEDS ORDERED: PIPERACILLIN/TAZOBACTAM 2.25 GM VIAL IVPB ONE ×3 (00:17→17:25)
[2021-02-23] MEDS ORDERED: DEXTROSE 5%-NORMAL SALINE 1,000 ML IV SCH (02:15)
[2021-02-23] MEDS: PIPERACILLIN/TAZOB 2.25 GM 2.25 GM in DEXTROSE 5%-WATER - 50 ML IVPB SCH ×3 (02:18→17:32)
[2021-02-23] MEDS ORDERED: DEXTROSE 50%-WATER - 25 GM/50 ML VIAL IVPUSH ONE ×3 (06:17→22:25)
[2021-02-23] MEDS ORDERED: DEXTROSE 50%-WATER 25 GM/50 ML DISP.SYRIN ONE ×3 (06:19→22:26)
[2021-02-23] MEDS: INSULIN SLIDING SCALE (NOVOLOG) 1 VIAL SQ SCH ×4 (06:52→22:27)
[2021-02-23] MEDS ORDERED: SODIUM CHLORIDE 250 ML IV PRN (07:00)
[2021-02-23 09:38] LABS: CHLORIDE 98 mmol/L (98-107); SODIUM 134 mmol/L (136-145)
[2021-02-23 09:40] LABS: HEMATOCRIT 23.6 % (32.4-45.2); HEMOGLOBIN 7.8 GM/dL (10.7-15.3); MCH 32.3 pg (25.7-33.7); MEAN CELL VOLUME 97.9 fl (80-96); MEAN PLT VOLUME 8.5 fl (7.5-11.1); PLATELET COUNT 96 10^3/uL (134-434); RBC 2.41 M/mm3 (3.60-5.2); RDW 17.4 % (11.6-15.6); WHITE BLOOD COUNT 4.3 K/mm3 (4.0-10.0)
[2021-02-23 09:48] LABS: ANION GAP 10 MMOL/L (8-16); CALCIUM 7.1 mg/dL (8.5-10.1); CO2 26 mmol/L (21-32); GLUCOSE,RANDOM 118 mg/dL (74-106)
[2021-02-23 09:49] LABS: BLOOD UREA NITROGEN 41.7 mg/dL (7-18); MAGNESIUM 1.6 mg/dL (1.8-2.4)
[2021-02-23 09:51] LABS: BILIRUBIN,TOTAL 0.3 mg/dL (0.2-1); SGPT/ALT < 6 U/L (13-61)
[2021-02-23 09:52] LABS: ALK PHOS 55 U/L (45-117); CREATININE 5.9 mg/dL (0.55-1.3); PHOSPHOROUS 5.2 mg/dL (2.5-4.9); SGOT/AST 10 U/L (15-37)
[2021-02-23 09:54] LABS: ALBUMIN 1.9 g/dl (3.4-5.0)
[2021-02-23] MEDS: HEPARIN NA (PORCINE) 5,000 UNITS/ML 1ML VIAL SQ SCH ×2 (10:29→22:27)
[2021-02-23] MEDS: MUPIROCIN 2% TOPICAL OINTMENT FOR DECOLONIZATION NS SCH ×2 (10:29→22:27)
[2021-02-23] MEDS: PANTOPRAZOLE SODIUM 40 MG VIAL IVPUSH SCH (10:29)
[2021-02-23] MEDS: HYDROmorphone HCl 2 MG/ML VIAL IVPUSH PRN (10:30)
[2021-02-23 12:23] LABS: ANISOCYTOSIS 1+; MACROCYTOSIS 0; PLATELET ESTIMATE DECREASED
[2021-02-23] MEDS: ACETAMINOPHEN 1000 MG/100 ML VIAL (NON FORMULARY) IVPB PRN ×2 (12:46→22:05)
[2021-02-23] MEDS ORDERED: AMINO ACIDS 4.25%/D5W 1,000 ML IV SCH (15:15)
[2021-02-23] MEDS ORDERED: DEXTROSE 50%-WATER 25 GM/50 ML DISP.SYRIN IVPUSH ONE (17:29)
[2021-02-23] MEDS: AMINO ACIDS 4.25%/D5W 1,000 ML IV SCH (20:44)
[2021-02-23] MEDS: CHLORHEXIDINE GLUCONATE 4% CLEANSER FOR DECOLONIZATION TP SCH (22:27)
[2021-02-23] MEDS: DOPAMINE 400 MG/D5W - 400,000 MCG/250 ML INFUS.BAG IVPB SCH (22:27)
[2021-02-23] MEDS: DEXTROSE 5%-NORMAL SALINE 1,000 ML IV SCH (23:32)
[2021-02-24] MEDS ORDERED: DEXTROSE 5%-WATER - 50 ML IVPB ONE (00:58)
[2021-02-24] MEDS ORDERED: PIPERACILLIN/TAZOBACTAM 2.25 GM VIAL IVPB ONE (00:58)
[2021-02-24] MEDS: PIPERACILLIN/TAZOB 2.25 GM 2.25 GM in DEXTROSE 5%-WATER - 50 ML IVPB SCH (02:01)
[2021-02-24] MEDS: HYDROmorphone HCl 2 MG/ML VIAL IVPUSH PRN (02:18)
[2021-02-24] MEDS: ACETAMINOPHEN 1000 MG/100 ML VIAL (NON FORMULARY) IVPB PRN (06:28)
[2021-02-24] MEDS: INSULIN SLIDING SCALE (NOVOLOG) 1 VIAL SQ SCH ×4 (06:35→23:59)
[2021-02-24] MEDS ORDERED: DEXTROSE 50%-WATER - 25 GM/50 ML VIAL IVPUSH ONE (06:38)
[2021-02-24] MEDS ORDERED: HYDROmorphone HCl 2 MG/ML VIAL IVPUSH PRN (07:55)
[2021-02-24] MEDS: HEPARIN NA (PORCINE) 5,000 UNITS/ML 1ML VIAL SQ SCH ×2 (09:11→21:11)
[2021-02-24] MEDS: PANTOPRAZOLE SODIUM 40 MG VIAL IVPUSH SCH (09:11)
[2021-02-24] MEDS: MUPIROCIN 2% TOPICAL OINTMENT FOR DECOLONIZATION NS SCH ×2 (09:11→21:11)
[2021-02-24] MEDS ORDERED: HYDROmorphone HCL 2 MG TABLET PO PRN (14:10)
[2021-02-24] MEDS ORDERED: ACETAMINOPHEN 325 MG TABLET (FP) PO PRN ×4 (14:11→22:58)
[2021-02-24] MEDS ORDERED: ONDANSETRON *ODT* 4 MG TABLET SL PRN (14:12)
[2021-02-24 14:38] LABS: BASO % 0.4 % (0-2.0); EOS % 1.1 % (0-4.5); HEMATOCRIT 27.2 % (32.4-45.2); HEMOGLOBIN 8.4 GM/dL (10.7-15.3); LYMPH % 7.4 % (8-40); MCH 31.3 pg (25.7-33.7); MEAN CELL VOLUME 100.7 fl (80-96); MEAN PLT VOLUME 7.6 fl (7.5-11.1); MONO % 6.9 % (3.8-10.2); NEUT % 84.2 % (42.8-82.8); PLATELET COUNT 91 10^3/uL (134-434); RDW 17.9 % (11.6-15.6); WHITE BLOOD COUNT 4.6 K/mm3 (4.0-10.0)
[2021-02-24] MEDS: HYDROmorphone HCL 2 MG TABLET PO PRN ×2 (15:16→19:44)
[2021-02-24 15:50] LABS: ALBUMIN 1.9 g/dl (3.4-5.0); BILIRUBIN,TOTAL 0.4 mg/dL (0.2-1); BLOOD UREA NITROGEN 38.4 mg/dL (7-18); CALCIUM 7.3 mg/dL (8.5-10.1); CREATININE 5.2 mg/dL (0.55-1.3); MAGNESIUM 1.6 mg/dL (1.8-2.4); PHOSPHOROUS 3.9 mg/dL (2.5-4.9); TOT PROT 6.1 g/dl (6.4-8.2)
[2021-02-24] MEDS ORDERED: DEXTROSE 4 GM TAB.CHEW PO ONE (17:47)
[2021-02-24] MEDS ORDERED: MORPHINE SULFATE 2 MG/ML VIAL IVPUSH ONE (18:30)
[2021-02-24] MEDS: CHLORHEXIDINE GLUCONATE 4% CLEANSER FOR DECOLONIZATION TP SCH (21:11)
[2021-02-24] MEDS ORDERED: POLYETHYLENE GLYCOL (HEALTHYLAX) 3350 17 GM PACKET PO ONE (21:32)
[2021-02-24] MEDS ORDERED: SIMETHICONE 80 MG TAB.CHEW (FP) PO ONE (21:32)
[2021-02-24] MEDS ORDERED: ONDANSETRON 4 MG/2 ML VIAL ONE (21:44)
[2021-02-24] MEDS ORDERED: PT OWN MED DRAWER 7, Y5N ONE (23:51)
[2021-02-25] MEDS: HYDROmorphone HCL 2 MG TABLET PO PRN (01:53)
[2021-02-25] MEDS: INSULIN SLIDING SCALE (NOVOLOG) 1 VIAL SQ SCH ×4 (06:30→21:43)
[2021-02-25] MEDS: DEXTROSE 4 GM TAB.CHEW PO PRN ×2 (06:30→16:59)
[2021-02-25] MEDS ORDERED: PT OWN MED DRAWER 7, Y5N ONE ×2 (06:32→13:15)
[2021-02-25 07:52] LABS: MAGNESIUM 1.5 mg/dL (1.8-2.4)
[2021-02-25 07:56] LABS: PHOSPHOROUS 3.9 mg/dL (2.5-4.9)
[2021-02-25] MEDS: PANTOPRAZOLE 40 MG TABLET PO SCH (09:39)
[2021-02-25] MEDS: HEPARIN NA (PORCINE) 5,000 UNITS/ML 1ML VIAL SQ SCH ×2 (09:39→21:28)
[2021-02-25] MEDS: ACETAMINOPHEN 1000 MG/100 ML VIAL (NON FORMULARY) IVPB SCH ×2 (10:43→17:55)
[2021-02-25] MEDS ORDERED: SODIUM CHLORIDE 250 ML IV PRN (11:50)
[2021-02-25] MEDS ORDERED: EPOETIN ALFA-EPBX 10,000 UNIT/ML VIAL IVPUSH ONE (12:15)
[2021-02-25 12:45] LABS: HEMATOCRIT 25.9 % (32.4-45.2); HEMOGLOBIN 8.5 GM/dL (10.7-15.3); MCH 31.8 pg (25.7-33.7); MEAN CELL VOLUME 96.6 fl (80-96); MEAN PLT VOLUME 8.2 fl (7.5-11.1); PLATELET COUNT 111 10^3/uL (134-434); RBC 2.68 M/mm3 (3.60-5.2); WHITE BLOOD COUNT 4.2 K/mm3 (4.0-10.0)
[2021-02-25 13:10] LABS: BLOOD UREA NITROGEN 45.4 mg/dL (7-18)
[2021-02-25 13:14] LABS: CREATININE 5.9 mg/dL (0.55-1.3)
[2021-02-25 13:15] LABS: BILIRUBIN,TOTAL 0.5 mg/dL (0.2-1); TOT PROT 6.8 g/dl (6.4-8.2)
[2021-02-25] MEDS: ACETAMINOPHEN 325 MG TABLET (FP) PO PRN (21:27)
[2021-02-26] MEDS: ACETAMINOPHEN 1000 MG/100 ML VIAL (NON FORMULARY) IVPB SCH ×2 (01:42→10:01)
[2021-02-26] MEDS: ACETAMINOPHEN 325 MG TABLET (FP) PO PRN (05:45)
[2021-02-26] MEDS: INSULIN SLIDING SCALE (NOVOLOG) 1 VIAL SQ SCH ×4 (06:54→21:18)
[2021-02-26 08:16] LABS: BASO % 0.4 % (0-2.0); EOS % 0.6 % (0-4.5); HEMATOCRIT 25.1 % (32.4-45.2); HEMOGLOBIN 8.2 GM/dL (10.7-15.3); LYMPH % 7.8 % (8-40); MCHC 32.6 g/dl (32.0-36.0); MEAN CELL VOLUME 98.1 fl (80-96); MEAN PLT VOLUME 9.3 fl (7.5-11.1); MONO % 7.8 % (3.8-10.2); NEUT % 83.4 % (42.8-82.8); PLATELET COUNT 165 10^3/uL (134-434); RBC 2.55 M/mm3 (3.60-5.2); WHITE BLOOD COUNT 5.3 K/mm3 (4.0-10.0)
[2021-02-26 08:39] LABS: BLOOD UREA NITROGEN 29.2 mg/dL (7-18); CALCIUM 7.9 mg/dL (8.5-10.1)
[2021-02-26 08:42] LABS: CREATININE 4.5 mg/dL (0.55-1.3)
[2021-02-26 08:44] LABS: BILIRUBIN,TOTAL 0.5 mg/dL (0.2-1); TOT PROT 6.5 g/dl (6.4-8.2)
[2021-02-26] MEDS: DEXTROSE 4 GM TAB.CHEW PO PRN ×2 (09:58→21:21)
[2021-02-26] MEDS: PANTOPRAZOLE 40 MG TABLET PO SCH (10:03)
[2021-02-26] MEDS: HEPARIN NA (PORCINE) 5,000 UNITS/ML 1ML VIAL SQ SCH ×2 (10:03→21:17)
[2021-02-27] MEDS: ACETAMINOPHEN 325 MG TABLET (FP) PO PRN ×3 (06:22→17:47)
[2021-02-27] MEDS: INSULIN SLIDING SCALE (NOVOLOG) 1 VIAL SQ SCH ×4 (06:29→22:07)
[2021-02-27] MEDS ORDERED: SODIUM CHLORIDE 250 ML IV PRN (07:32)
[2021-02-27] MEDS ORDERED: EPOETIN ALFA-EPBX 10,000 UNIT/ML VIAL SQ ONE (08:00)
[2021-02-27 10:30] LABS: HEMATOCRIT 25.2 % (32.4-45.2); MCH 31.1 pg (25.7-33.7); MCHC 31.9 g/dl (32.0-36.0); MEAN CELL VOLUME 97.4 fl (80-96); PLATELET COUNT 133 10^3/uL (134-434); RBC 2.58 M/mm3 (3.60-5.2); RDW 16.8 % (11.6-15.6); WHITE BLOOD COUNT 5.4 K/mm3 (4.0-10.0)
[2021-02-27 10:54] LABS: CALCIUM 8.1 mg/dL (8.5-10.1)
[2021-02-27 10:55] LABS: BLOOD UREA NITROGEN 37.1 mg/dL (7-18)
[2021-02-27 10:58] LABS: CREATININE 5.6 mg/dL (0.55-1.3)
[2021-02-27] MEDS ORDERED: morphine CARPU-JECT 2 MG/1 ML DISP.SYRIN IM PRN (14:22)
[2021-02-27] MEDS ORDERED: MORPHINE SULFATE 2 MG/ML VIAL IVPB PRN ×2 (14:31→15:35)
[2021-02-27] MEDS ORDERED: PT OWN MED DRAWER 7, Y5N ONE (15:39)
[2021-02-27] MEDS: HEPARIN NA (PORCINE) 5,000 UNITS/ML 1ML VIAL SQ SCH ×2 (16:48→22:07)
[2021-02-27] MEDS ORDERED: MORPHINE SULFATE 2 MG/ML VIAL IM PRN (17:26)
[2021-02-27] MEDS: PANTOPRAZOLE 40 MG TABLET PO SCH (17:47)
[2021-02-27] MEDS: MORPHINE SULFATE 2 MG/ML VIAL IM PRN (22:38)
[2021-02-28] MEDS: MORPHINE SULFATE 2 MG/ML VIAL IM PRN ×3 (02:49→21:17)
[2021-02-28] MEDS: INSULIN SLIDING SCALE (NOVOLOG) 1 VIAL SQ SCH ×3 (06:09→21:17)
[2021-02-28] MEDS: HEPARIN NA (PORCINE) 5,000 UNITS/ML 1ML VIAL SQ SCH ×2 (09:15→21:16)
[2021-02-28] MEDS: PANTOPRAZOLE 40 MG TABLET PO SCH (09:15)
[2021-02-28] MEDS: oxyCODONE HCL 5 MG TABLET PO PRN (15:01)
[2021-03-01] MEDS: oxyCODONE HCL 5 MG TABLET PO PRN ×2 (00:46→12:28)
[2021-03-01] MEDS: ACETAMINOPHEN 325 MG TABLET (FP) PO PRN (00:47)
[2021-03-01] MEDS: DEXTROSE 4 GM TAB.CHEW PO PRN (05:54)
[2021-03-01] MEDS: MORPHINE SULFATE 2 MG/ML VIAL IM PRN (05:57)
[2021-03-01] MEDS: INSULIN SLIDING SCALE (NOVOLOG) 1 VIAL SQ SCH ×5 (06:06→22:20)
[2021-03-01] MEDS: PANTOPRAZOLE 40 MG TABLET PO SCH (09:09)
[2021-03-01] MEDS: HEPARIN NA (PORCINE) 5,000 UNITS/ML 1ML VIAL SQ SCH ×2 (09:09→22:20)
[2021-03-02] MEDS: INSULIN SLIDING SCALE (NOVOLOG) 1 VIAL SQ SCH ×4 (06:38→21:04)
[2021-03-02] MEDS: DEXTROSE 4 GM TAB.CHEW PO PRN (06:39)
[2021-03-02] MEDS ORDERED: SODIUM CHLORIDE 250 ML IV PRN (07:12)
[2021-03-02] MEDS ORDERED: EPOETIN ALFA-EPBX 10,000 UNIT/ML VIAL SQ ONE (08:00)
[2021-03-02] MEDS: oxyCODONE HCL 5 MG TABLET PO PRN ×2 (09:00→21:04)
[2021-03-02] MEDS: HEPARIN NA (PORCINE) 5,000 UNITS/ML 1ML VIAL SQ SCH ×2 (11:43→21:03)
[2021-03-02] MEDS: PANTOPRAZOLE 40 MG TABLET PO SCH (11:43)
[2021-03-02 12:36] LABS: CALCIUM 8.3 mg/dL (8.5-10.1); HEMATOCRIT 25.8 % (32.4-45.2); HEMOGLOBIN 8.2 GM/dL (10.7-15.3); MCH 31.5 pg (25.7-33.7); MCHC 31.6 g/dl (32.0-36.0); MEAN CELL VOLUME 99.7 fl (80-96); MEAN PLT VOLUME 8.3 fl (7.5-11.1); PLATELET COUNT 155 10^3/uL (134-434); RBC 2.59 M/mm3 (3.60-5.2); RDW 16.8 % (11.6-15.6); WHITE BLOOD COUNT 5.8 K/mm3 (4.0-10.0)
[2021-03-02 12:40] LABS: CREATININE 6.1 mg/dL (0.55-1.3)
[2021-03-02 17:42] LABS: BASO % 0.5 % (0-2.0); EOS % 2.7 % (0-4.5); HEMATOCRIT 25.4 % (32.4-45.2); HEMOGLOBIN 8.4 GM/dL (10.7-15.3); LYMPH % 7.1 % (8-40); MCH 32.6 pg (25.7-33.7); MCHC 32.9 g/dl (32.0-36.0); MEAN CELL VOLUME 99.1 fl (80-96); MONO % 6.2 % (3.8-10.2); NEUT % 83.5 % (42.8-82.8); RBC 2.56 M/mm3 (3.60-5.2); RDW 17.2 % (11.6-15.6); WHITE BLOOD COUNT 6.9 K/mm3 (4.0-10.0)
[2021-03-02 18:04] LABS: CALCIUM 8.1 mg/dL (8.5-10.1)
[2021-03-02 18:05] LABS: BLOOD UREA NITROGEN 20.7 mg/dL (7-18)
[2021-03-02 18:08] LABS: CREATININE 4.1 mg/dL (0.55-1.3)
[2021-03-02 18:09] LABS: BILIRUBIN,TOTAL 0.5 mg/dL (0.2-1)
[2021-03-02 18:10] LABS: TOT PROT 6.6 g/dl (6.4-8.2)
[2021-03-02 19:12] LABS: PLATELET ESTIMATE NORMAL
[2021-03-02 19:13] LABS: MEAN PLT VOLUME 8.6 fl (7.5-11.1); PLATELET COUNT 149 10^3/uL (134-434)
[2021-03-02] MEDS: ACETAMINOPHEN 325 MG TABLET (FP) PO PRN (21:05)
[2021-03-03] MEDS: INSULIN SLIDING SCALE (NOVOLOG) 1 VIAL SQ SCH ×4 (06:00→21:04)
[2021-03-03] MEDS: HEPARIN NA (PORCINE) 5,000 UNITS/ML 1ML VIAL SQ SCH ×2 (09:32→21:03)
[2021-03-03] MEDS: PANTOPRAZOLE 40 MG TABLET PO SCH (09:32)
[2021-03-03] MEDS: ACETAMINOPHEN 325 MG TABLET (FP) PO PRN (21:03)
[2021-03-03] MEDS: oxyCODONE HCL 5 MG TABLET PO PRN (21:04)
[2021-03-04] MEDS: INSULIN SLIDING SCALE (NOVOLOG) 1 VIAL SQ SCH ×3 (06:40→16:51)
[2021-03-04] MEDS ORDERED: EPOETIN ALFA-EPBX 10,000 UNIT/ML VIAL SQ ONE (08:00)
[2021-03-04] MEDS ORDERED: SODIUM CHLORIDE 250 ML IV PRN (08:00)
[2021-03-04 08:12] LABS: HEMATOCRIT 25.6 % (32.4-45.2); HEMOGLOBIN 8.3 GM/dL (10.7-15.3); MCH 31.8 pg (25.7-33.7); MCHC 32.6 g/dl (32.0-36.0); MEAN CELL VOLUME 97.5 fl (80-96); MEAN PLT VOLUME 8.3 fl (7.5-11.1); PLATELET COUNT 145 10^3/uL (134-434); RBC 2.63 M/mm3 (3.60-5.2); RDW 16.7 % (11.6-15.6); WHITE BLOOD COUNT 6.5 K/mm3 (4.0-10.0)
[2021-03-04 08:38] LABS: BLOOD UREA NITROGEN 33.4 mg/dL (7-18)
[2021-03-04 08:42] LABS: CREATININE 5.6 mg/dL (0.55-1.3)
[2021-03-04] MEDS: ACETAMINOPHEN 325 MG TABLET (FP) PO PRN (09:38)
[2021-03-04] MEDS: PANTOPRAZOLE 40 MG TABLET PO SCH (11:10)
[2021-03-04 15:52] VITALS: BP 138/63; PULSE 82; TEMP 98.4
== END 2021-03-04 17:30 | disposition home health service (06) | DRG 329 ==
LOC: JER 14:57 → JERBED 20:38 → JICU 02-21 04:48 → J4S 02-24 23:28
PROVIDERS: ADMIT Internal Medicine Pulmonary Disease; ATTEND Internal Medicine
PROC: 0DN80ZZ Release Small Intestine, Open Approach (ICD-10-PCS; 2021-02-20)
PROC: 0DB80ZZ Excision of Small Intestine, Open Approach (ICD-10-PCS; principal; 2021-02-20 22:00)
PROC: 5A1D70Z Performance of Urinary Filtration, Intermittent, Less than 6 Hours Per Day (ICD-10-PCS; 2021-03-04)
DX: K56.50 Intestinal adhesions [bands], unspecified as to partial versus complete obstruction (principal); K55.019 Acute (reversible) ischemia of small intestine, extent unspecified; N18.6 End stage renal disease; R57.1 Hypovolemic shock; I12.0 Hypertensive chronic kidney disease with stage 5 chronic kidney disease or end stage renal disease; I31.3 Pericardial effusion (noninflammatory); J90 Pleural effusion, not elsewhere classified; E11.22 Type 2 diabetes mellitus with diabetic chronic kidney disease; F17.210 Nicotine dependence, cigarettes, uncomplicated; J45.909 Unspecified asthma, uncomplicated; G47.33 Obstructive sleep apnea (adult) (pediatric); E66.01 Morbid (severe) obesity due to excess calories; Z68.32 Body mass index [BMI] 32.0-32.9, adult; K21.9 Gastro-esophageal reflux disease without esophagitis; F41.9 Anxiety disorder, unspecified; K63.89 Other specified diseases of intestine; R00.1 Bradycardia, unspecified; E11.51 Type 2 diabetes mellitus with diabetic peripheral angiopathy without gangrene; F43.10 Post-traumatic stress disorder, unspecified; D69.6 Thrombocytopenia, unspecified; K56.7 Ileus, unspecified; I95.3 Hypotension of hemodialysis
CPT/HCPCS: 36415; 74018-TC-FY; 74176-TC; 80048; 80053; 82607; 82728; 82746; 82962; 83036; 83540; 83550; 83605; 83690; 83735; 84100; 84484; 85025; 85027; 85045; 85610; 85730; 86803; 86850; 86900; 86901; 87077; 87081; 87340; 88302-TC; 88307-TC; 93005; 93010; 93306-TC; 93970-TC; 94760; 97116-GP; 97163-GP; 99285-25; C9803; J0131; J1644; P9047; Q0162; Q5106; U0003; U0005

== ENCOUNTER 2021-03-27 10:11 | Inpatient (IN) | payer BC ==
[2021-03-27] MEDS ORDERED: SODIUM CHLORIDE 250 ML IV PRN (14:59)
[2021-03-27] MEDS ORDERED: EPOETIN ALFA-EPBX 4,000 UNIT/ML VIAL SQ ONE (14:59)
[2021-03-27 15:28] LABS: BASO % 0.6 % (0-2.0); EOS % 1.7 % (0-4.5); HEMATOCRIT 33.5 % (32.4-45.2); LYMPH % 11.2 % (8-40); MCH 30.7 pg (25.7-33.7); MCHC 32.8 g/dl (32.0-36.0); MEAN CELL VOLUME 93.6 fl (80-96); MEAN PLT VOLUME 7.6 fl (7.5-11.1); MONO % 6.6 % (3.8-10.2); NEUT % 79.9 % (42.8-82.8); RBC 3.58 M/mm3 (3.60-5.2); RDW 18.8 % (11.6-15.6); WHITE BLOOD COUNT 5.3 K/mm3 (4.0-10.0)
[2021-03-27 15:38] LABS: INR 1.03 (0.83-1.09); PROTHROMBIN TIME (PATIENT) 12.7 SEC (9.7-13.0)
[2021-03-27 15:39] LABS: PLATELET COUNT 86 10^3/uL (134-434)
[2021-03-27 15:41] LABS: ACTIVATED PTT 32.6 SECONDS (25.2-36.5); CHLORIDE 96 mmol/L (98-107); SODIUM 133 mmol/L (136-145)
[2021-03-27 15:43] LABS: CALCIUM 7.7 mg/dL (8.5-10.1)
[2021-03-27 15:44] LABS: ALBUMIN 1.6 g/dl (3.4-5.0); ANION GAP 8 MMOL/L (8-16); CO2 30 mmol/L (21-32); GLUCOSE,RANDOM 72 mg/dL (74-106); MAGNESIUM 1.9 mg/dL (1.8-2.4)
[2021-03-27 15:47] LABS: CREATININE 5.7 mg/dL (0.55-1.3); SGOT/AST 7 U/L (15-37); SGPT/ALT < 6 U/L (13-61)
[2021-03-27 15:48] LABS: BILIRUBIN,TOTAL 0.4 mg/dL (0.2-1); TOT PROT 7.1 g/dl (6.4-8.2)
[2021-03-27 15:50] LABS: ALK PHOS 76 U/L (45-117)
[2021-03-27] MEDS: ALBUMIN HUMAN 25% 12.5 GM/50 ML VIAL IVPB SCH ×4 (17:00→18:36)
[2021-03-27] MEDS ORDERED: LORazepam 2 MG TABLET PO PRN (19:49)
[2021-03-27] MEDS: ATORVASTATIN CA 20 MG TABLET (FP) PO SCH (22:45)
[2021-03-27] MEDS: CARVEDILOL 3.125 MG TABLET (FP) PO SCH ×2 (22:45→22:54)
[2021-03-27] MEDS: METOCLOPRAMIDE HCL 10 MG TABLET (FP) PO SCH (22:45)
[2021-03-27] MEDS: HEPARIN NA (PORCINE) 5,000 UNITS/ML 1ML VIAL SQ SCH (22:46)
[2021-03-27] MEDS: INSULIN SLIDING SCALE (NOVOLOG) 1 VIAL SQ SCH (22:51)
[2021-03-27 23:44] VITALS: BMI 27.5
[2021-03-27] MEDS: oxyCODONE HCL 5 MG TABLET PO PRN (23:45)
[2021-03-28] MEDS: MOMETASONE FUROATE 220 MCG/IH INHALER IH SCH ×2 (01:46→23:00)
[2021-03-28] MEDS: HEPARIN NA (PORCINE) 5,000 UNITS/ML 1ML VIAL SQ SCH ×3 (06:25→23:00)
[2021-03-28] MEDS: INSULIN SLIDING SCALE (NOVOLOG) 1 VIAL SQ SCH ×4 (06:25→23:04)
[2021-03-28] MEDS: PANTOPRAZOLE 40 MG TABLET PO SCH (09:46)
[2021-03-28] MEDS: METOCLOPRAMIDE HCL 10 MG TABLET (FP) PO SCH ×2 (09:46→23:00)
[2021-03-28] MEDS: CARVEDILOL 3.125 MG TABLET (FP) PO SCH ×2 (09:47→23:00)
[2021-03-28] MEDS: FUROSEMIDE 40 MG TABLET (FP) PO SCH (09:47)
[2021-03-28] MEDS: CALCIUM ACETATE 667 MG CAPSULE (FP) PO SCH ×3 (09:47→17:21)
[2021-03-28] MEDS: oxyCODONE HCL 5 MG TABLET PO PRN ×2 (09:52→23:16)
[2021-03-28] MEDS: ACETAMINOPHEN 325 MG TABLET (FP) PO PRN (09:53)
[2021-03-28] MEDS ORDERED: PATIENT'S OWN MEDICATION (NON-FORMULARY) (Fluticasone Propionate [Flovent Diskus] 50 MCG B IH SCH (10:00)
[2021-03-28] MEDS: ATORVASTATIN CA 20 MG TABLET (FP) PO SCH (23:00)
[2021-03-29] MEDS: HEPARIN NA (PORCINE) 5,000 UNITS/ML 1ML VIAL SQ SCH ×3 (06:10→22:54)
[2021-03-29] MEDS: INSULIN SLIDING SCALE (NOVOLOG) 1 VIAL SQ SCH ×3 (06:13→22:53)
[2021-03-29] MEDS ORDERED: PIPERACILLIN/TAZOB 2.25 GM 2.25 GM in DEXTROSE 5%-WATER - 50 ML IVPB SCH (10:15)
[2021-03-29] MEDS ORDERED: DEXTROSE 5%-WATER - 50 ML IVPB ONE ×2 (10:57→16:07)
[2021-03-29] MEDS ORDERED: PIPERACILLIN/TAZOBACTAM 2.25 GM VIAL IVPB ONE ×2 (10:57→16:06)
[2021-03-29] MEDS: PANTOPRAZOLE 40 MG TABLET PO SCH (11:11)
[2021-03-29] MEDS: CARVEDILOL 3.125 MG TABLET (FP) PO SCH ×2 (11:12→22:53)
[2021-03-29] MEDS: METOCLOPRAMIDE HCL 10 MG TABLET (FP) PO SCH ×2 (11:12→22:54)
[2021-03-29] MEDS: CALCIUM ACETATE 667 MG CAPSULE (FP) PO SCH ×3 (11:12→18:04)
[2021-03-29] MEDS: FUROSEMIDE 40 MG TABLET (FP) PO SCH (11:12)
[2021-03-29] MEDS: POLYETHYLENE GLYCOL (HEALTHYLAX) 3350 17 GM PACKET PO SCH (11:13)
[2021-03-29 12:02] LABS: BASO % 0.5 % (0-2.0); EOS % 0.7 % (0-4.5); HEMATOCRIT 34.2 % (32.4-45.2); HEMOGLOBIN 11.1 GM/dL (10.7-15.3); MCH 30.9 pg (25.7-33.7); MCHC 32.5 g/dl (32.0-36.0); MEAN PLT VOLUME 8.2 fl (7.5-11.1); MONO % 5.8 % (3.8-10.2); PLATELET COUNT 94 10^3/uL (134-434); RDW 19.3 % (11.6-15.6); WHITE BLOOD COUNT 8.1 K/mm3 (4.0-10.0)
[2021-03-29 12:28] LABS: CHLORIDE 98 mmol/L (98-107); SODIUM 134 mmol/L (136-145)
[2021-03-29 12:30] LABS: CALCIUM 7.7 mg/dL (8.5-10.1)
[2021-03-29 12:31] LABS: ALBUMIN 1.9 g/dl (3.4-5.0); ANION GAP 7 MMOL/L (8-16); BLOOD UREA NITROGEN 21.6 mg/dL (7-18); CO2 29 mmol/L (21-32); GLUCOSE,RANDOM 103 mg/dL (74-106)
[2021-03-29 12:34] LABS: CREATININE 5.3 mg/dL (0.55-1.3); SGOT/AST < 3 U/L (15-37); SGPT/ALT < 6 U/L (13-61)
[2021-03-29 12:35] LABS: BILIRUBIN,TOTAL 0.4 mg/dL (0.2-1)
[2021-03-29 12:37] LABS: ALK PHOS 72 U/L (45-117)
[2021-03-29] MEDS ORDERED: VANCOMYCIN 1 GRAM (PRE-DOCKED) 1,000 MG/250 ML BAG IVPB ONE (13:15)
[2021-03-29] MEDS ORDERED: SODIUM CHLORIDE 250 ML IV PRN (14:36)
[2021-03-29] MEDS: PIPERACILLIN/TAZOB 2.25 GM 2.25 GM in DEXTROSE 5%-WATER - 50 ML IVPB SCH (18:04)
[2021-03-29] MEDS: MOMETASONE FUROATE 220 MCG/IH INHALER IH SCH (22:53)
[2021-03-29] MEDS: ATORVASTATIN CA 20 MG TABLET (FP) PO SCH (22:54)
[2021-03-30] MEDS ORDERED: DEXTROSE 5%-WATER - 50 ML IVPB ONE ×3 (03:08→16:52)
[2021-03-30] MEDS ORDERED: PIPERACILLIN/TAZOBACTAM 2.25 GM VIAL IVPB ONE ×3 (03:08→16:51)
[2021-03-30] MEDS: PIPERACILLIN/TAZOB 2.25 GM 2.25 GM in DEXTROSE 5%-WATER - 50 ML IVPB SCH ×3 (03:14→17:00)
[2021-03-30] MEDS: INSULIN SLIDING SCALE (NOVOLOG) 1 VIAL SQ SCH ×4 (06:44→21:45)
[2021-03-30] MEDS: HEPARIN NA (PORCINE) 5,000 UNITS/ML 1ML VIAL SQ SCH ×3 (06:45→21:44)
[2021-03-30] MEDS: ACETAMINOPHEN 325 MG TABLET (FP) PO PRN ×2 (09:36→18:51)
[2021-03-30] MEDS: oxyCODONE HCL 5 MG TABLET PO PRN ×2 (09:37→18:50)
[2021-03-30] MEDS: METOCLOPRAMIDE HCL 10 MG TABLET (FP) PO SCH ×2 (09:38→21:45)
[2021-03-30] MEDS: PANTOPRAZOLE 40 MG TABLET PO SCH (09:39)
[2021-03-30] MEDS: CARVEDILOL 3.125 MG TABLET (FP) PO SCH ×2 (12:44→21:45)
[2021-03-30] MEDS: CALCIUM ACETATE 667 MG CAPSULE (FP) PO SCH ×2 (12:44→17:01)
[2021-03-30] MEDS: POLYETHYLENE GLYCOL (HEALTHYLAX) 3350 17 GM PACKET PO SCH (12:44)
[2021-03-30] MEDS: FUROSEMIDE 40 MG TABLET (FP) PO SCH (12:44)
[2021-03-30] MEDS: COLLAGENASE CLOSTRIDIUM HIST. 30 GRAMS TUBE TP SCH (15:23)
[2021-03-30] MEDS ORDERED: INSULIN (NOVOLOG) ASPART 100 UNITS/ML 10ML VIAL ONE (18:55)
[2021-03-30] MEDS: ATORVASTATIN CA 20 MG TABLET (FP) PO SCH (21:45)
[2021-03-30] MEDS: MOMETASONE FUROATE 220 MCG/IH INHALER IH SCH (21:45)
[2021-03-31] MEDS ORDERED: DEXTROSE 5%-WATER - 50 ML IVPB ONE ×3 (04:35→16:47)
[2021-03-31] MEDS ORDERED: PIPERACILLIN/TAZOBACTAM 2.25 GM VIAL IVPB ONE ×3 (04:35→16:47)
[2021-03-31] MEDS: PIPERACILLIN/TAZOB 2.25 GM 2.25 GM in DEXTROSE 5%-WATER - 50 ML IVPB SCH ×3 (04:45→17:01)
[2021-03-31] MEDS: LORazepam 1 MG TABLET PO PRN (04:51)
[2021-03-31] MEDS: oxyCODONE HCL 5 MG TABLET PO PRN (04:51)
[2021-03-31] MEDS: HEPARIN NA (PORCINE) 5,000 UNITS/ML 1ML VIAL SQ SCH ×3 (06:33→22:42)
[2021-03-31] MEDS: INSULIN SLIDING SCALE (NOVOLOG) 1 VIAL SQ SCH ×4 (06:35→22:09)
[2021-03-31] MEDS: CALCIUM ACETATE 667 MG CAPSULE (FP) PO SCH ×3 (09:23→17:00)
[2021-03-31] MEDS: CARVEDILOL 3.125 MG TABLET (FP) PO SCH ×2 (09:23→22:42)
[2021-03-31] MEDS: COLLAGENASE CLOSTRIDIUM HIST. 30 GRAMS TUBE TP SCH (09:23)
[2021-03-31] MEDS: FUROSEMIDE 40 MG TABLET (FP) PO SCH (09:23)
[2021-03-31] MEDS: PANTOPRAZOLE 40 MG TABLET PO SCH (09:23)
[2021-03-31] MEDS: METOCLOPRAMIDE HCL 10 MG TABLET (FP) PO SCH ×2 (09:23→22:42)
[2021-03-31] MEDS: POLYETHYLENE GLYCOL (HEALTHYLAX) 3350 17 GM PACKET PO SCH (09:23)
[2021-03-31] MEDS: ATORVASTATIN CA 20 MG TABLET (FP) PO SCH (22:42)
[2021-03-31] MEDS: MOMETASONE FUROATE 220 MCG/IH INHALER IH SCH (22:43)
[2021-04-01] MEDS ORDERED: PIPERACILLIN/TAZOBACTAM 2.25 GM VIAL IVPB ONE (02:22)
[2021-04-01] MEDS ORDERED: DEXTROSE 5%-WATER - 50 ML IVPB ONE (02:23)
[2021-04-01] MEDS: PIPERACILLIN/TAZOB 2.25 GM 2.25 GM in DEXTROSE 5%-WATER - 50 ML IVPB SCH ×2 (02:53→09:15)
[2021-04-01] MEDS: HEPARIN NA (PORCINE) 5,000 UNITS/ML 1ML VIAL SQ SCH ×2 (06:20→14:52)
[2021-04-01] MEDS: INSULIN SLIDING SCALE (NOVOLOG) 1 VIAL SQ SCH ×2 (06:22→10:01)
[2021-04-01] MEDS ORDERED: SODIUM CHLORIDE 250 ML IV PRN (07:28)
[2021-04-01] MEDS ORDERED: HEPARIN NA (PORCINE) 5,000 UNITS/ML 1ML VIAL IVPUSH ONE (07:30)
[2021-04-01] MEDS: CARVEDILOL 3.125 MG TABLET (FP) PO SCH (09:14)
[2021-04-01] MEDS: CALCIUM ACETATE 667 MG CAPSULE (FP) PO SCH ×2 (09:14→11:02)
[2021-04-01] MEDS: POLYETHYLENE GLYCOL (HEALTHYLAX) 3350 17 GM PACKET PO SCH (09:14)
[2021-04-01] MEDS: FUROSEMIDE 40 MG TABLET (FP) PO SCH (09:14)
[2021-04-01 09:18] LABS: HEMATOCRIT 32.9 % (32.4-45.2); HEMOGLOBIN 10.6 GM/dL (10.7-15.3); MCH 30.3 pg (25.7-33.7); MCHC 32.2 g/dl (32.0-36.0); MEAN CELL VOLUME 94.3 fl (80-96); MEAN PLT VOLUME 8.4 fl (7.5-11.1); PLATELET COUNT 66 10^3/uL (134-434); RBC 3.49 M/mm3 (3.60-5.2); RDW 19.2 % (11.6-15.6); WHITE BLOOD COUNT 3.5 K/mm3 (4.0-10.0)
[2021-04-01 09:45] LABS: BLOOD UREA NITROGEN 26.3 mg/dL (7-18)
[2021-04-01 09:48] LABS: CREATININE 5.6 mg/dL (0.55-1.3)
[2021-04-01] MEDS: COLLAGENASE CLOSTRIDIUM HIST. 30 GRAMS TUBE TP SCH (09:51)
[2021-04-01] MEDS: METOCLOPRAMIDE HCL 10 MG TABLET (FP) PO SCH (09:51)
[2021-04-01] MEDS: PANTOPRAZOLE 40 MG TABLET PO SCH (09:51)
[2021-04-01] MEDS ORDERED: VANCOMYCIN 1 GM in D5W (PRE-DOCKED) 1,000 MG/250 ML IVPB ONE (10:00)
[2021-04-01 14:22] VITALS: BP 117/66; PULSE 73; TEMP 98.6
[2021-04-01] MEDS: LORazepam 1 MG TABLET PO PRN (14:52)
== END 2021-04-01 15:39 | disposition home health service (06) | DRG 555 ==
LOC: JER 10:11 → JERBED 14:26 → J7W 20:19
PROVIDERS: ADMIT Internal Medicine; ATTEND Internal Medicine
PROC: 5A1D70Z Performance of Urinary Filtration, Intermittent, Less than 6 Hours Per Day (ICD-10-PCS; principal; 2021-03-27)
PROC: 5A1D70Z Performance of Urinary Filtration, Intermittent, Less than 6 Hours Per Day (ICD-10-PCS; 2021-03-30)
PROC: 0H97XZZ Drainage of Abdomen Skin, External Approach (ICD-10-PCS; 2021-03-30)
PROC: 5A1D70Z Performance of Urinary Filtration, Intermittent, Less than 6 Hours Per Day (ICD-10-PCS; 2021-04-01)
DX: M79.89 Other specified soft tissue disorders (principal); N18.6 End stage renal disease; I12.0 Hypertensive chronic kidney disease with stage 5 chronic kidney disease or end stage renal disease; T81.41XA Infection following a procedure, superficial incisional surgical site, initial encounter; K21.9 Gastro-esophageal reflux disease without esophagitis; K57.90 Diverticulosis of intestine, part unspecified, without perforation or abscess without bleeding; F43.10 Post-traumatic stress disorder, unspecified; J45.909 Unspecified asthma, uncomplicated; E11.42 Type 2 diabetes mellitus with diabetic polyneuropathy; G47.30 Sleep apnea, unspecified; K59.09 Other constipation; E66.9 Obesity, unspecified; Z68.27 Body mass index [BMI] 27.0-27.9, adult; E11.22 Type 2 diabetes mellitus with diabetic chronic kidney disease; E21.3 Hyperparathyroidism, unspecified; M54.5 Low back pain; F41.9 Anxiety disorder, unspecified; E11.43 Type 2 diabetes mellitus with diabetic autonomic (poly)neuropathy; K31.84 Gastroparesis; N63.0 Unspecified lump in unspecified breast; R11.2 Nausea with vomiting, unspecified; G47.00 Insomnia, unspecified; D63.1 Anemia in chronic kidney disease; R22.32 Localized swelling, mass and lump, left upper limb; Y83.8 Other surgical procedures as the cause of abnormal reaction of the patient, or of later complication, without mention of misadventure at the time of the procedure; Z99.2 Dependence on renal dialysis; B95.62 Methicillin resistant Staphylococcus aureus infection as the cause of diseases classified elsewhere
CPT/HCPCS: 36415; 74177-TC; 80048; 80053; 82962; 83735; 84100; 84484; 85025; 85027; 85610; 85730; 86803; 87040; 87070; 87186; 87205; 87340; 93005; 93010; 93970-TC; 93971; 93971-TC; 97116-GP; 97161-GP; 99285-25; C9803; G0480; J1644; P9047; Q5106; Q9967; U0003; U0005

== ENCOUNTER 2021-04-14 10:36 | Observation (INO) | payer BC ==
[2021-04-14] MEDS ORDERED: LORazepam 1 MG TABLET PO ONE (13:42)
[2021-04-14] MEDS ORDERED: LORazepam 1 MG TABLET ONE (13:44)
[2021-04-14 13:47] LABS: BASO % 0.7 % (0-2.0); EOS % 1.8 % (0-4.5); HEMATOCRIT 30.8 % (32.4-45.2); HEMOGLOBIN 10.2 GM/dL (10.7-15.3); LYMPH % 20.9 % (8-40); MCH 31.1 pg (25.7-33.7); MCHC 33.2 g/dl (32.0-36.0); MEAN CELL VOLUME 93.8 fl (80-96); MEAN PLT VOLUME 8.1 fl (7.5-11.1); MONO % 6.4 % (3.8-10.2); NEUT % 70.2 % (42.8-82.8); PLATELET COUNT 105 10^3/uL (134-434); RBC 3.28 M/mm3 (3.60-5.2); RDW 17.4 % (11.6-15.6); WHITE BLOOD COUNT 3.1 K/mm3 (4.0-10.0)
[2021-04-14 14:05] LABS: CHLORIDE 97 mmol/L (98-107); SODIUM 132 mmol/L (136-145)
[2021-04-14 14:07] LABS: ANION GAP 6 MMOL/L (8-16); CO2 30 mmol/L (21-32); MAGNESIUM 2.3 mg/dL (1.8-2.4)
[2021-04-14 14:08] LABS: GLUCOSE,RANDOM 86 mg/dL (74-106)
[2021-04-14 14:10] LABS: SGOT/AST 11 U/L (15-37); SGPT/ALT 6 U/L (13-61)
[2021-04-14 14:11] LABS: CREATININE 5.2 mg/dL (0.55-1.3)
[2021-04-14 14:12] LABS: BILIRUBIN,TOTAL 0.3 mg/dL (0.2-1); TOT PROT 7.1 g/dl (6.4-8.2)
[2021-04-14 14:13] LABS: ALK PHOS 76 U/L (45-117)
[2021-04-14 14:16] LABS: N-TERMINAL BNP 18011.7 pg/ml (5-125)
[2021-04-14 14:33] LABS: BLOOD UREA NITROGEN 51.6 mg/dL (7-18)
[2021-04-14] MEDS ORDERED: SODIUM CHLORIDE 250 ML IV PRN (18:56)
[2021-04-14] MEDS ORDERED: EPOETIN ALFA-EPBX 3,000 UNIT/ML VIAL SQ ONE (19:00)
[2021-04-15] MEDS ORDERED: LORazepam 1 MG TABLET PO PRN (01:13)
[2021-04-15] MEDS ORDERED: oxyCODONE HCL 5 MG TABLET PO PRN (01:20)
[2021-04-15 02:31] VITALS: BMI 29.5
[2021-04-15] MEDS ORDERED: TRIMETHOBENZAMIDE HCL 300 MG CAPSULE PO ONE (03:03)
[2021-04-15] MEDS ORDERED: TRIMETHOBENZAMIDE HCL 200MG/2ML INJ IM ONE (03:21)
[2021-04-15] MEDS ORDERED: METOCLOPRAMIDE HCL 10 MG TABLET (FP) PO ONE (04:13)
[2021-04-15] MEDS: INSULIN SLIDING SCALE (NOVOLOG) 1 VIAL SQ SCH ×3 (06:00→17:24)
[2021-04-15] MEDS ORDERED: SODIUM CHLORIDE 250 ML IV PRN (08:35)
[2021-04-15] MEDS ORDERED: COLLAGENASE CLOSTRIDIUM HIST. 30 GRAMS TUBE TP SCH (10:00)
[2021-04-15 14:17] VITALS: TEMP 98.5
[2021-04-15 14:34] VITALS: BP 146/85; PULSE 97
[2021-04-15] MEDS ORDERED: ATORVASTATIN CA 20 MG TABLET (FP) PO SCH (22:00)
== END 2021-04-15 17:23 | disposition home or self-care (01) ==
LOC: JER 10:36 → INTOOBSV 14:47 → UNDOADMOB 14:47 → JERBED 14:47 → J4S 22:29 → JERBED 22:29 → J4S 04-15 08:12 → JERBED 04-15 08:12
PROVIDERS: ADMIT Internal Medicine; ATTEND Internal Medicine
PROC: 3E023GC Introduction of Other Therapeutic Substance into Muscle, Percutaneous Approach (ICD-10-PCS; principal; 2021-04-15)
DX: I12.0 Hypertensive chronic kidney disease with stage 5 chronic kidney disease or end stage renal disease (principal); N18.6 End stage renal disease; Z99.2 Dependence on renal dialysis; J90 Pleural effusion, not elsewhere classified; E87.79 Other fluid overload; G89.4 Chronic pain syndrome; Z91.15 Patient's noncompliance with renal dialysis; J45.909 Unspecified asthma, uncomplicated; G62.9 Polyneuropathy, unspecified; Z99.81 Dependence on supplemental oxygen; K57.90 Diverticulosis of intestine, part unspecified, without perforation or abscess without bleeding; K59.00 Constipation, unspecified; Z86.14 Personal history of Methicillin resistant Staphylococcus aureus infection; M54.59 Other low back pain; F41.9 Anxiety disorder, unspecified; F17.210 Nicotine dependence, cigarettes, uncomplicated; T78.40XA Allergy, unspecified, initial encounter; E28.2 Polycystic ovarian syndrome
CPT/HCPCS: 36415; 71045-TC-FY; 76937; 80053; 82550; 82962; 83735; 83880; 84484; 85025; 86803; 87340; 93005; 93010; 93308; 96372; 99285-25; C9803; G0378; Q5106; U0003; U0005

== ENCOUNTER 2021-08-27 22:34 | Inpatient (IN) | payer OTHER ==
[2021-08-27 22:38] VITALS: BMI 43.7
[2021-08-28 01:01] LABS: BASO % 0.6 % (0-2.0); EOS % 1.8 % (0-4.5); HEMATOCRIT 25.2 % (32.4-45.2); HEMOGLOBIN 8.1 GM/dL (10.7-15.3); LYMPH % 13.8 % (8-40); MCH 32.7 pg (25.7-33.7); MCHC 32.2 g/dl (32.0-36.0); MEAN CELL VOLUME 101.7 fl (80-96); MEAN PLT VOLUME 8.1 fl (7.5-11.1); MONO % 9.4 % (3.8-10.2); NEUT % 74.4 % (42.8-82.8); PLATELET COUNT 103 10^3/uL (134-434); RBC 2.48 M/mm3 (3.60-5.2); RDW 19.8 % (11.6-15.6); WHITE BLOOD COUNT 3.8 K/mm3 (4.0-10.0)
[2021-08-28] MEDS ORDERED: ACETAMINOPHEN 1000 MG/100 ML BAG IVPB ONE (01:07)
[2021-08-28] MEDS ORDERED: ACETAMINOPHEN INJECTION 100 ML IVPB ONE (01:17)
[2021-08-28 01:23] LABS: CALCIUM 7.9 mg/dL (8.5-10.1)
[2021-08-28 01:24] LABS: ALBUMIN 2.1 g/dl (3.4-5.0); BLOOD UREA NITROGEN 31.4 mg/dL (7-18); MAGNESIUM 1.7 mg/dL (1.8-2.4)
[2021-08-28 01:26] LABS: ACTIVATED PTT 32.4 SECONDS (25.2-36.5)
[2021-08-28 01:27] LABS: CREATININE 3.7 mg/dL (0.55-1.3); PHOSPHOROUS 2.7 mg/dL (2.5-4.9)
[2021-08-28 01:28] LABS: BILIRUBIN,TOTAL 0.9 mg/dL (0.2-1); TOT PROT 5.8 g/dl (6.4-8.2)
[2021-08-28] MEDS ORDERED: MAGNESIUM SULF 50% (8.12 MEQ/2 ML-1 GM VIAL) IVPB ONE (02:06)
[2021-08-28] MEDS ORDERED: MAGNESIUM SULFATE IN WATER 2 GM/50 ML IVPB IVPB ONE (02:14)
[2021-08-28] MEDS ORDERED: SODIUM CHLORIDE 0.9% 500 ML INFUS.BAG IV ONE (03:01)
[2021-08-28 03:41] LABS: BASO % 1.2 % (0-2.0); EOS % 1.9 % (0-4.5); HEMATOCRIT 23.8 % (32.4-45.2); HEMOGLOBIN 7.6 GM/dL (10.7-15.3); LYMPH % 17.5 % (8-40); MCH 32.7 pg (25.7-33.7); MCHC 31.8 g/dl (32.0-36.0); MEAN CELL VOLUME 102.7 fl (80-96); MEAN PLT VOLUME 8.8 fl (7.5-11.1); MONO % 9.7 % (3.8-10.2); NEUT % 69.7 % (42.8-82.8); PLATELET COUNT 134 10^3/uL (134-434); RBC 2.32 M/mm3 (3.60-5.2); WHITE BLOOD COUNT 4.4 K/mm3 (4.0-10.0)
[2021-08-28 04:09] LABS: INR 1.1 (0.83-1.09); PROTHROMBIN TIME (PATIENT) 12.7 SEC (9.7-13.0)
[2021-08-28] MEDS ORDERED: ALBUTEROL SO4 HFA INHALER IH PRN (06:41)
[2021-08-28] MEDS: INSULIN SLIDING SCALE (NOVOLOG) 1 VIAL SQ SCH ×4 (07:40→23:26)
[2021-08-28] MEDS ORDERED: DEXTROSE 5%-WATER 500 ML PVC-FREE INFUS.BAG IV ONE (08:30)
[2021-08-28 08:47] LABS: BASO % 1.3 % (0-2.0); EOS % 2.3 % (0-4.5); HEMATOCRIT 26.6 % (32.4-45.2); HEMOGLOBIN 8.5 GM/dL (10.7-15.3); MCH 31.3 pg (25.7-33.7); MCHC 32.1 g/dl (32.0-36.0); MEAN CELL VOLUME 97.7 fl (80-96); MEAN PLT VOLUME 8.9 fl (7.5-11.1); MONO % 10.2 % (3.8-10.2); NEUT % 67.2 % (42.8-82.8); PLATELET COUNT 111 10^3/uL (134-434); RBC 2.72 M/mm3 (3.60-5.2); RDW 22.1 % (11.6-15.6); WHITE BLOOD COUNT 3.6 K/mm3 (4.0-10.0)
[2021-08-28] MEDS: TIOTROPIUM BROMIDE 2.5 MCG (SPIRIVA) RESPIMAT INHALER IH SCH (09:43)
[2021-08-28] MEDS: FLUTICASONE PROP 0.05% 16 GM NASAL SPRAY NS SCH (09:43)
[2021-08-28] MEDS ORDERED: QUEtiapine FUMARATE 200 MG TABLET PO SCH (22:00)
[2021-08-29] MEDS: INSULIN SLIDING SCALE (NOVOLOG) 1 VIAL SQ SCH ×3 (06:34→17:44)
[2021-08-29] MEDS: ALBUTEROL SO4 0.083% IH SOL 2.5 MG/3 ML VIAL.NEB. NEB SCH ×4 (09:06→20:45)
[2021-08-29] MEDS: CARVEDILOL 3.125 MG TABLET (FP) PO SCH ×2 (09:51→21:44)
[2021-08-29] MEDS: PANTOPRAZOLE 40 MG TABLET PO SCH (09:51)
[2021-08-29] MEDS: POLYETHYLENE GLYCOL (HEALTHYLAX) 3350 17 GM PACKET PO SCH (09:51)
[2021-08-29] MEDS: guaiFENesin 200 MG/10 ML 10 ML UNIT-DOSE CUPS PO PRN ×3 (09:59→21:44)
[2021-08-29] MEDS: ACETAMINOPHEN 325 MG TABLET (FP) PO PRN ×2 (11:32→21:45)
[2021-08-29] MEDS: oxyCODONE HCL 5 MG TABLET PO PRN ×2 (11:33→21:44)
[2021-08-29] MEDS: TIOTROPIUM BROMIDE 2.5 MCG (SPIRIVA) RESPIMAT INHALER IH SCH (11:34)
[2021-08-29] MEDS: FLUTICASONE PROP 0.05% 16 GM NASAL SPRAY NS SCH (11:34)
[2021-08-29] MEDS: CALCIUM ACETATE 667 MG CAPSULE (FP) PO SCH ×2 (13:14→17:14)
[2021-08-29] MEDS ORDERED: DEXAMETHASONE 4 MG TABLET (FP) PO SCH (15:00)
[2021-08-29] MEDS ORDERED: SODIUM CHLORIDE 250 ML IV PRN (20:48)
[2021-08-29] MEDS: ATORVASTATIN CA 20 MG TABLET (FP) PO SCH (21:44)
[2021-08-30] MEDS ORDERED: ONDANSETRON *ODT* 4 MG TABLET SL ONE (00:34)
[2021-08-30] MEDS: INSULIN SLIDING SCALE (NOVOLOG) 1 VIAL SQ SCH ×2 (00:45→05:54)
[2021-08-30] MEDS: ALBUTEROL SO4 0.083% IH SOL 2.5 MG/3 ML VIAL.NEB. NEB SCH ×4 (08:15→20:30)
[2021-08-30] MEDS: CALCIUM ACETATE 667 MG CAPSULE (FP) PO SCH ×3 (08:25→17:37)
[2021-08-30] MEDS: DEXAMETHASONE 4 MG TABLET (FP) PO SCH (08:25)
[2021-08-30] MEDS: POLYETHYLENE GLYCOL (HEALTHYLAX) 3350 17 GM PACKET PO SCH (09:45)
[2021-08-30] MEDS: CARVEDILOL 3.125 MG TABLET (FP) PO SCH ×2 (09:47→21:33)
[2021-08-30] MEDS: FLUTICASONE PROP 0.05% 16 GM NASAL SPRAY NS SCH (09:47)
[2021-08-30] MEDS: PANTOPRAZOLE 40 MG TABLET PO SCH (09:47)
[2021-08-30] MEDS: TIOTROPIUM BROMIDE 2.5 MCG (SPIRIVA) RESPIMAT INHALER IH SCH (09:48)
[2021-08-30] MEDS: ACETAMINOPHEN 325 MG TABLET (FP) PO PRN ×2 (12:52→19:49)
[2021-08-30] MEDS: oxyCODONE HCL 5 MG TABLET PO PRN ×2 (12:54→19:51)
[2021-08-30] MEDS: guaiFENesin 200 MG/10 ML 10 ML UNIT-DOSE CUPS PO PRN ×3 (13:45→22:55)
[2021-08-30 13:46] LABS: HEMATOCRIT 33.6 % (32.4-45.2); HEMOGLOBIN 11.2 GM/dL (10.7-15.3); MCH 31.5 pg (25.7-33.7); MCHC 33.3 g/dl (32.0-36.0); MEAN CELL VOLUME 94.8 fl (80-96); MEAN PLT VOLUME 8.1 fl (7.5-11.1); PLATELET COUNT 137 10^3/uL (134-434); RBC 3.54 M/mm3 (3.60-5.2); WHITE BLOOD COUNT 4.5 K/mm3 (4.0-10.0)
[2021-08-30 14:15] LABS: BLOOD UREA NITROGEN 51.5 mg/dL (7-18)
[2021-08-30 14:18] LABS: CREATININE 4.8 mg/dL (0.55-1.3)
[2021-08-30 17:48] LABS: ALBUMIN 2.4 g/dl (3.4-5.0)
[2021-08-30 17:53] LABS: BILIRUBIN,TOTAL 0.9 mg/dL (0.2-1); TOT PROT 6.8 g/dl (6.4-8.2)
[2021-08-30 18:21] LABS: ANISOCYTOSIS 3+; MACROCYTOSIS 0; OVALOCYTE 1+; TARGET CELLS 0
[2021-08-30] MEDS: ATORVASTATIN CA 20 MG TABLET (FP) PO SCH (21:33)
[2021-08-30] MEDS: NYSTATIN 100,000 UNIT/GM TOPICAL CREAM 15 GM TUBE TP SCH (21:33)
[2021-08-31] MEDS: ALBUTEROL SO4 0.083% IH SOL 2.5 MG/3 ML VIAL.NEB. NEB SCH ×4 (01:00→20:09)
[2021-08-31] MEDS: ACETAMINOPHEN 325 MG TABLET (FP) PO PRN ×3 (01:47→20:41)
[2021-08-31] MEDS: oxyCODONE HCL 5 MG TABLET PO PRN ×3 (01:48→20:40)
[2021-08-31] MEDS: guaiFENesin 200 MG/10 ML 10 ML UNIT-DOSE CUPS PO PRN ×3 (02:12→20:40)
[2021-08-31] MEDS: CALCIUM ACETATE 667 MG CAPSULE (FP) PO SCH ×3 (08:06→17:25)
[2021-08-31] MEDS: POLYETHYLENE GLYCOL (HEALTHYLAX) 3350 17 GM PACKET PO SCH (10:50)
[2021-08-31] MEDS: TIOTROPIUM BROMIDE 2.5 MCG (SPIRIVA) RESPIMAT INHALER IH SCH (10:50)
[2021-08-31] MEDS: PANTOPRAZOLE 40 MG TABLET PO SCH (10:50)
[2021-08-31] MEDS: AMINO ACIDS/PROTEIN HYDROLYS 30 ML LIQUID.PKT PO SCH (10:50)
[2021-08-31] MEDS: FLUTICASONE PROP 0.05% 16 GM NASAL SPRAY NS SCH (10:50)
[2021-08-31] MEDS: CARVEDILOL 3.125 MG TABLET (FP) PO SCH ×2 (10:50→22:45)
[2021-08-31] MEDS: VITAMIN B COMP W-C 1 EA TABLET (NEPHRO-VITE) PO SCH (10:50)
[2021-08-31] MEDS: DEXAMETHASONE 4 MG TABLET (FP) PO SCH (10:50)
[2021-08-31] MEDS: NYSTATIN 100,000 UNIT/GM TOPICAL CREAM 15 GM TUBE TP SCH ×2 (10:50→22:45)
[2021-08-31] MEDS ORDERED: SODIUM CHLORIDE 250 ML IV PRN (14:55)
[2021-08-31] MEDS: ATORVASTATIN CA 20 MG TABLET (FP) PO SCH (22:45)
[2021-09-01] MEDS: oxyCODONE HCL 5 MG TABLET PO PRN (06:12)
[2021-09-01] MEDS: ACETAMINOPHEN 325 MG TABLET (FP) PO PRN ×2 (06:13→18:15)
[2021-09-01] MEDS: guaiFENesin 200 MG/10 ML 10 ML UNIT-DOSE CUPS PO PRN ×2 (06:14→21:16)
[2021-09-01] MEDS: ALBUTEROL SO4 0.083% IH SOL 2.5 MG/3 ML VIAL.NEB. NEB SCH ×4 (07:40→20:31)
[2021-09-01 08:31] LABS: BASO % 0.1 % (0-2.0); EOS % 0.1 % (0-4.5); HEMATOCRIT 34.6 % (32.4-45.2); HEMOGLOBIN 10.8 GM/dL (10.7-15.3); LYMPH % 9.7 % (8-40); MCH 30.7 pg (25.7-33.7); MCHC 31.4 g/dl (32.0-36.0); MEAN CELL VOLUME 97.8 fl (80-96); MEAN PLT VOLUME 8.3 fl (7.5-11.1); NEUT % 81.1 % (42.8-82.8); PLATELET COUNT 154 10^3/uL (134-434); RBC 3.54 M/mm3 (3.60-5.2); RDW 20.2 % (11.6-15.6); WHITE BLOOD COUNT 5.4 K/mm3 (4.0-10.0)
[2021-09-01 08:57] LABS: CALCIUM 8.3 mg/dL (8.5-10.1)
[2021-09-01 08:58] LABS: ALBUMIN 2.4 g/dl (3.4-5.0); BLOOD UREA NITROGEN 46.9 mg/dL (7-18)
[2021-09-01 09:03] LABS: BILIRUBIN,TOTAL 0.8 mg/dL (0.2-1); TOT PROT 6.7 g/dl (6.4-8.2)
[2021-09-01] MEDS: CARVEDILOL 3.125 MG TABLET (FP) PO SCH ×2 (12:00→21:28)
[2021-09-01] MEDS: CALCIUM ACETATE 667 MG CAPSULE (FP) PO SCH ×3 (12:50→18:13)
[2021-09-01] MEDS: DEXAMETHASONE 4 MG TABLET (FP) PO SCH (18:08)
[2021-09-01] MEDS: POLYETHYLENE GLYCOL (HEALTHYLAX) 3350 17 GM PACKET PO SCH (18:10)
[2021-09-01] MEDS: NYSTATIN 100,000 UNIT/GM TOPICAL CREAM 15 GM TUBE TP SCH ×2 (18:10→21:28)
[2021-09-01] MEDS: AMINO ACIDS/PROTEIN HYDROLYS 30 ML LIQUID.PKT PO SCH (18:10)
[2021-09-01] MEDS: FLUTICASONE PROP 0.05% 16 GM NASAL SPRAY NS SCH (18:10)
[2021-09-01] MEDS: TIOTROPIUM BROMIDE 2.5 MCG (SPIRIVA) RESPIMAT INHALER IH SCH (18:11)
[2021-09-01] MEDS: PANTOPRAZOLE 40 MG TABLET PO SCH (18:11)
[2021-09-01] MEDS: VITAMIN B COMP W-C 1 EA TABLET (NEPHRO-VITE) PO SCH (18:11)
[2021-09-01] MEDS: ATORVASTATIN CA 20 MG TABLET (FP) PO SCH (21:15)
[2021-09-02] MEDS: guaiFENesin 200 MG/10 ML 10 ML UNIT-DOSE CUPS PO PRN ×2 (05:29→22:08)
[2021-09-02] MEDS: oxyCODONE HCL 5 MG TABLET PO PRN ×3 (05:57→21:14)
[2021-09-02] MEDS: ALBUTEROL SO4 0.083% IH SOL 2.5 MG/3 ML VIAL.NEB. NEB SCH ×4 (07:50→20:15)
[2021-09-02] MEDS ORDERED: SODIUM CHLORIDE 250 ML IV PRN (09:11)
[2021-09-02] MEDS: VITAMIN B COMP W-C 1 EA TABLET (NEPHRO-VITE) PO SCH (09:49)
[2021-09-02] MEDS: CARVEDILOL 3.125 MG TABLET (FP) PO SCH ×2 (09:49→21:13)
[2021-09-02] MEDS: AMINO ACIDS/PROTEIN HYDROLYS 30 ML LIQUID.PKT PO SCH (09:49)
[2021-09-02] MEDS: POLYETHYLENE GLYCOL (HEALTHYLAX) 3350 17 GM PACKET PO SCH (09:49)
[2021-09-02] MEDS: CALCIUM ACETATE 667 MG CAPSULE (FP) PO SCH ×3 (09:49→16:41)
[2021-09-02] MEDS: PANTOPRAZOLE 40 MG TABLET PO SCH (09:50)
[2021-09-02] MEDS: NYSTATIN 100,000 UNIT/GM TOPICAL CREAM 15 GM TUBE TP SCH ×2 (09:50→21:14)
[2021-09-02] MEDS: FLUTICASONE PROP 0.05% 16 GM NASAL SPRAY NS SCH (09:50)
[2021-09-02] MEDS: TIOTROPIUM BROMIDE 2.5 MCG (SPIRIVA) RESPIMAT INHALER IH SCH (09:51)
[2021-09-02] MEDS: ATORVASTATIN CA 20 MG TABLET (FP) PO SCH (21:13)
[2021-09-03] MEDS ORDERED: guaiFENesin/D-METHORPHAN HB 10 ML UNIT-DOSE CUPS PO PRN (01:26)
[2021-09-03] MEDS: guaiFENesin/CODEINE 10 ML UNIT-DOSE CUPS PO PRN ×2 (05:31→19:42)
[2021-09-03] MEDS: oxyCODONE HCL 5 MG TABLET PO PRN ×2 (06:50→21:43)
[2021-09-03] MEDS: AMINO ACIDS/PROTEIN HYDROLYS 30 ML LIQUID.PKT PO SCH (08:09)
[2021-09-03] MEDS: CALCIUM ACETATE 667 MG CAPSULE (FP) PO SCH ×3 (08:09→16:34)
[2021-09-03] MEDS: ALBUTEROL SO4 0.083% IH SOL 2.5 MG/3 ML VIAL.NEB. NEB SCH ×2 (08:47→12:04)
[2021-09-03 09:07] LABS: HEMATOCRIT 30.3 % (32.4-45.2); HEMOGLOBIN 9.7 GM/dL (10.7-15.3); MCH 31.1 pg (25.7-33.7); MCHC 31.9 g/dl (32.0-36.0); MEAN CELL VOLUME 97.6 fl (80-96); MEAN PLT VOLUME 7.9 fl (7.5-11.1); PLATELET COUNT 126 10^3/uL (134-434); RBC 3.11 M/mm3 (3.60-5.2); RDW 18.9 % (11.6-15.6); WHITE BLOOD COUNT 5.1 K/mm3 (4.0-10.0)
[2021-09-03 09:15] LABS: CALCIUM 7.8 mg/dL (8.5-10.1)
[2021-09-03 09:18] LABS: CREATININE 4.3 mg/dL (0.55-1.3)
[2021-09-03] MEDS: PANTOPRAZOLE 40 MG TABLET PO SCH (10:49)
[2021-09-03] MEDS: VITAMIN B COMP W-C 1 EA TABLET (NEPHRO-VITE) PO SCH (10:49)
[2021-09-03] MEDS: CARVEDILOL 3.125 MG TABLET (FP) PO SCH ×2 (10:49→22:37)
[2021-09-03] MEDS: NYSTATIN 100,000 UNIT/GM TOPICAL CREAM 15 GM TUBE TP SCH ×2 (10:50→22:37)
[2021-09-03] MEDS: POLYETHYLENE GLYCOL (HEALTHYLAX) 3350 17 GM PACKET PO SCH (10:50)
[2021-09-03] MEDS: FLUTICASONE PROP 0.05% 16 GM NASAL SPRAY NS SCH (10:50)
[2021-09-03] MEDS: TIOTROPIUM BROMIDE 2.5 MCG (SPIRIVA) RESPIMAT INHALER IH SCH (10:50)
[2021-09-03 19:54] LABS: HEMATOCRIT 29.7 % (32.4-45.2); HEMOGLOBIN 9.5 GM/dL (10.7-15.3); MCH 31.4 pg (25.7-33.7); MCHC 32.1 g/dl (32.0-36.0); MEAN CELL VOLUME 97.5 fl (80-96); MEAN PLT VOLUME 7.5 fl (7.5-11.1); PLATELET COUNT 112 10^3/uL (134-434); RBC 3.04 M/mm3 (3.60-5.2); RDW 19.1 % (11.6-15.6); WHITE BLOOD COUNT 5.1 K/mm3 (4.0-10.0)
[2021-09-03] MEDS ORDERED: SODIUM CHLORIDE 1,000 ML IV SCH (21:30)
[2021-09-03] MEDS: PANTOPRAZOLE SODIUM 40 MG VIAL IVPUSH SCH ×2 (21:42→22:38)
[2021-09-03] MEDS: ATORVASTATIN CA 20 MG TABLET (FP) PO SCH (22:37)
[2021-09-03 22:44] LABS: BASO % 0.6 % (0-2.0); EOS % 1.6 % (0-4.5); HEMATOCRIT 26.9 % (32.4-45.2); HEMOGLOBIN 8.8 GM/dL (10.7-15.3); LYMPH % 10.5 % (8-40); MCH 31.5 pg (25.7-33.7); MCHC 32.6 g/dl (32.0-36.0); MEAN CELL VOLUME 96.7 fl (80-96); MEAN PLT VOLUME 7.8 fl (7.5-11.1); MONO % 8.7 % (3.8-10.2); NEUT % 78.6 % (42.8-82.8); PLATELET COUNT 128 10^3/uL (134-434); RBC 2.78 M/mm3 (3.60-5.2); RDW 18.7 % (11.6-15.6)
[2021-09-04] MEDS ORDERED: PHENYLEPHRINE HCL 10 MG/1 ML SINGLE DOSE VIAL ONE (00:17)
[2021-09-04] MEDS ORDERED: VASOPRESSIN 20 UNITS/ML VIAL IV ONE (00:17)
[2021-09-04] MEDS ORDERED: ALBUTEROL SO4 0.083% IH SOL 2.5 MG/3 ML VIAL.NEB. NEB ONE (01:06)
[2021-09-04] MEDS ORDERED: FUROSEMIDE 40 MG/4 ML INJECTABLE VIAL IVPUSH ONE (01:08)
[2021-09-04] MEDS: NOREPINEPHRINE BITARTRATE 16,000 MCG in SODIUM CHLORIDE 484 ML IV SCH ×2 (03:30→15:00)
[2021-09-04 07:32] LABS: ALBUMIN 1.9 g/dl (3.4-5.0); CALCIUM 7.3 mg/dL (8.5-10.1); MAGNESIUM 1.6 mg/dL (1.8-2.4)
[2021-09-04 07:36] LABS: CREATININE 3.2 mg/dL (0.55-1.3); PHOSPHOROUS 5.5 mg/dL (2.5-4.9)
[2021-09-04 07:37] LABS: INR 1.18 (0.83-1.09); PROTHROMBIN TIME (PATIENT) 13.6 SEC (9.7-13.0)
[2021-09-04 07:43] LABS: HEMATOCRIT 30.9 % (32.4-45.2); HEMOGLOBIN 10.4 GM/dL (10.7-15.3); MCH 30.1 pg (25.7-33.7); MCHC 33.6 g/dl (32.0-36.0); MEAN CELL VOLUME 89.6 fl (80-96); MEAN PLT VOLUME 7.9 fl (7.5-11.1); PLATELET COUNT 133 10^3/uL (134-434); RBC 3.44 M/mm3 (3.60-5.2); RDW 16.1 % (11.6-15.6)
[2021-09-04 08:12] LABS: TOT PROT 4.6 g/dl (6.4-8.2)
[2021-09-04] MEDS: VASOPRESSIN 40 UNITS/100 ML BAG IV SCH (08:25)
[2021-09-04 09:55] LABS: ANISOCYTOSIS 2+; MACROCYTOSIS 0; OVALOCYTE 2+
[2021-09-04] MEDS: PANTOPRAZOLE SODIUM 40 MG VIAL IVPUSH SCH ×2 (10:32→21:33)
[2021-09-04] MEDS: VITAMIN B COMP W-C 1 EA TABLET (NEPHRO-VITE) PO SCH (10:32)
[2021-09-04] MEDS: CALCIUM ACETATE 667 MG CAPSULE (FP) PO SCH ×4 (10:41→18:39)
[2021-09-04 13:07] LABS: SARS-CoV-2 NAA Not Detected (Not Detected)
[2021-09-04] MEDS ORDERED: SODIUM CHLORIDE 250 ML IV PRN (13:18)
[2021-09-04] MEDS: ALBUMIN HUMAN 25% 12.5 GM/50 ML VIAL IV SCH ×3 (13:20→15:05)
[2021-09-04] MEDS: TIOTROPIUM BROMIDE 2.5 MCG (SPIRIVA) RESPIMAT INHALER IH SCH (15:51)
[2021-09-04] MEDS: POLYETHYLENE GLYCOL (HEALTHYLAX) 3350 17 GM PACKET PO SCH (15:52)
[2021-09-04] MEDS: NYSTATIN 100,000 UNIT/GM TOPICAL CREAM 15 GM TUBE TP SCH ×2 (15:52→21:33)
[2021-09-04] MEDS: FLUTICASONE PROP 0.05% 16 GM NASAL SPRAY NS SCH (15:52)
[2021-09-04 16:14] LABS: HEMATOCRIT 27.9 % (32.4-45.2); HEMOGLOBIN 9.6 GM/dL (10.7-15.3); MCH 30.7 pg (25.7-33.7); MCHC 34.5 g/dl (32.0-36.0); MEAN CELL VOLUME 88.9 fl (80-96); MEAN PLT VOLUME 7.9 fl (7.5-11.1); PLATELET COUNT 114 10^3/uL (134-434); RBC 3.13 M/mm3 (3.60-5.2); RDW 16.7 % (11.6-15.6); WHITE BLOOD COUNT 10.5 K/mm3 (4.0-10.0)
[2021-09-04] MEDS: ATORVASTATIN CA 20 MG TABLET (FP) PO SCH (21:06)
[2021-09-05] MEDS: NOREPINEPHRINE BITARTRATE 16,000 MCG in SODIUM CHLORIDE 484 ML IV SCH (06:02)
[2021-09-05 07:55] LABS: INR 1.15 (0.83-1.09); PROTHROMBIN TIME (PATIENT) 13.2 SEC (9.7-13.0)
[2021-09-05 07:57] LABS: ACTIVATED PTT 28.7 SECONDS (25.2-36.5)
[2021-09-05 08:06] LABS: ALBUMIN 2.3 g/dl (3.4-5.0); MAGNESIUM 1.8 mg/dL (1.8-2.4)
[2021-09-05 08:10] LABS: PHOSPHOROUS 4.8 mg/dL (2.5-4.9)
[2021-09-05 08:11] LABS: HEMATOCRIT 22.9 % (32.4-45.2); HEMOGLOBIN 7.8 GM/dL (10.7-15.3); MCH 30.5 pg (25.7-33.7); MCHC 34.2 g/dl (32.0-36.0); MEAN CELL VOLUME 89.1 fl (80-96); MEAN PLT VOLUME 7.9 fl (7.5-11.1); PLATELET COUNT 111 10^3/uL (134-434); RBC 2.57 M/mm3 (3.60-5.2); RDW 17.4 % (11.6-15.6); WHITE BLOOD COUNT 8.7 K/mm3 (4.0-10.0)
[2021-09-05 08:12] LABS: BILIRUBIN,TOTAL 0.8 mg/dL (0.2-1); TOT PROT 5.1 g/dl (6.4-8.2)
[2021-09-05 08:15] LABS: CALCIUM 8.5 mg/dL (8.5-10.1)
[2021-09-05] MEDS: VASOPRESSIN 40 UNITS/100 ML BAG IV SCH (09:42)
[2021-09-05] MEDS: FLUTICASONE PROP 0.05% 16 GM NASAL SPRAY NS SCH (09:43)
[2021-09-05] MEDS: POLYETHYLENE GLYCOL (HEALTHYLAX) 3350 17 GM PACKET PO SCH (09:43)
[2021-09-05] MEDS: NYSTATIN 100,000 UNIT/GM TOPICAL CREAM 15 GM TUBE TP SCH ×2 (09:43→22:50)
[2021-09-05] MEDS: VITAMIN B COMP W-C 1 EA TABLET (NEPHRO-VITE) PO SCH (09:47)
[2021-09-05] MEDS: PANTOPRAZOLE SODIUM 40 MG VIAL IVPUSH SCH ×2 (09:47→22:45)
[2021-09-05] MEDS: CALCIUM ACETATE 667 MG CAPSULE (FP) PO SCH ×3 (09:47→18:15)
[2021-09-05] MEDS: TIOTROPIUM BROMIDE 2.5 MCG (SPIRIVA) RESPIMAT INHALER IH SCH (10:28)
[2021-09-05 13:21] LABS: HEMATOCRIT 21.5 % (32.4-45.2); HEMOGLOBIN 7.3 GM/dL (10.7-15.3); MCH 30.4 pg (25.7-33.7); MCHC 33.8 g/dl (32.0-36.0); MEAN CELL VOLUME 89.9 fl (80-96); MEAN PLT VOLUME 7.7 fl (7.5-11.1); PLATELET COUNT 103 10^3/uL (134-434); RBC 2.39 M/mm3 (3.60-5.2); RDW 17.2 % (11.6-15.6)
[2021-09-05] MEDS: ATORVASTATIN CA 20 MG TABLET (FP) PO SCH (22:45)
[2021-09-05] MEDS: ACETAMINOPHEN 325 MG TABLET (FP) PO PRN (22:45)
[2021-09-06] MEDS ORDERED: FAMOTIDINE 10 MG TABLET PO ONE (03:15)
[2021-09-06] MEDS ORDERED: MAG HYDROX/AL HYDROX/SIMETH 30 ML UNIT-DOSE CUP PO ONE (03:15)
[2021-09-06] MEDS: ALBUTEROL SO4 0.083% IH SOL 2.5 MG/3 ML VIAL.NEB. NEB PRN ×2 (03:49→20:34)
[2021-09-06] MEDS: guaiFENesin/CODEINE 10 ML UNIT-DOSE CUPS PO PRN (04:37)
[2021-09-06] MEDS ORDERED: ACETAMINOPHEN 1000 MG/100 ML BAG IVPB ONE (04:53)
[2021-09-06 05:36] LABS: MCH 29.9 pg (25.7-33.7); MCHC 32.7 g/dl (32.0-36.0); MEAN CELL VOLUME 91.6 fl (80-96); MEAN PLT VOLUME 7.5 fl (7.5-11.1); PLATELET COUNT 72 10^3/uL (134-434); RBC 1.86 M/mm3 (3.60-5.2); RDW 17.5 % (11.6-15.6); WHITE BLOOD COUNT 3.9 K/mm3 (4.0-10.0)
[2021-09-06] MEDS: NOREPINEPHRINE BITARTRATE 16,000 MCG in SODIUM CHLORIDE 484 ML IV SCH (05:43)
[2021-09-06 05:49] LABS: HEMOGLOBIN 5.6 GM/dL (10.7-15.3)
[2021-09-06 05:53] LABS: INR 1.1 (0.83-1.09); PROTHROMBIN TIME (PATIENT) 12.7 SEC (9.7-13.0)
[2021-09-06 05:55] LABS: ACTIVATED PTT 26.6 SECONDS (25.2-36.5)
[2021-09-06 05:57] LABS: CALCIUM 7.6 mg/dL (8.5-10.1)
[2021-09-06 05:58] LABS: BLOOD UREA NITROGEN 37.5 mg/dL (7-18); MAGNESIUM 1.7 mg/dL (1.8-2.4)
[2021-09-06 06:01] LABS: CREATININE 3.5 mg/dL (0.55-1.3); PHOSPHOROUS 4.6 mg/dL (2.5-4.9)
[2021-09-06] MEDS ORDERED: SODIUM CHLORIDE 250 ML IV PRN (07:00)
[2021-09-06] MEDS ORDERED: EPOETIN ALFA-EPBX 20,000 UNIT/ML VIAL IVPUSH ONE (08:00)
[2021-09-06] MEDS: FLUTICASONE PROP 0.05% 16 GM NASAL SPRAY NS SCH (09:25)
[2021-09-06] MEDS: CALCIUM ACETATE 667 MG CAPSULE (FP) PO SCH ×3 (09:25→18:04)
[2021-09-06] MEDS: VASOPRESSIN 40 UNITS/100 ML BAG IV SCH (09:25)
[2021-09-06] MEDS: VITAMIN B COMP W-C 1 EA TABLET (NEPHRO-VITE) PO SCH (09:26)
[2021-09-06] MEDS: PANTOPRAZOLE SODIUM 40 MG VIAL IVPUSH SCH ×2 (09:26→21:49)
[2021-09-06] MEDS: NYSTATIN 100,000 UNIT/GM TOPICAL CREAM 15 GM TUBE TP SCH ×2 (09:26→21:49)
[2021-09-06] MEDS: POLYETHYLENE GLYCOL (HEALTHYLAX) 3350 17 GM PACKET PO SCH (09:26)
[2021-09-06] MEDS: TIOTROPIUM BROMIDE 2.5 MCG (SPIRIVA) RESPIMAT INHALER IH SCH (09:28)
[2021-09-06 16:53] LABS: HEMATOCRIT 26.1 % (32.4-45.2); HEMOGLOBIN 8.9 GM/dL (10.7-15.3); MCH 30.5 pg (25.7-33.7); MEAN CELL VOLUME 89.7 fl (80-96); MEAN PLT VOLUME 7.7 fl (7.5-11.1); PLATELET COUNT 76 10^3/uL (134-434); RBC 2.91 M/mm3 (3.60-5.2); RDW 16.1 % (11.6-15.6); WHITE BLOOD COUNT 4.9 K/mm3 (4.0-10.0)
[2021-09-06] MEDS: oxyCODONE HCL 5 MG TABLET PO PRN (18:34)
[2021-09-06] MEDS: ATORVASTATIN CA 20 MG TABLET (FP) PO SCH (21:48)
[2021-09-06] MEDS: guaiFENesin 200 MG/10 ML 10 ML UNIT-DOSE CUPS PO PRN (21:49)
[2021-09-07] MEDS: ACETAMINOPHEN 325 MG TABLET (FP) PO PRN (06:44)
[2021-09-07] MEDS: guaiFENesin 200 MG/10 ML 10 ML UNIT-DOSE CUPS PO PRN ×2 (06:53→19:45)
[2021-09-07 07:23] LABS: HEMATOCRIT 27.2 % (32.4-45.2); HEMOGLOBIN 9.3 GM/dL (10.7-15.3); RBC 2.99 M/mm3 (3.60-5.2); WHITE BLOOD COUNT 5.8 K/mm3 (4.0-10.0)
[2021-09-07 07:24] LABS: MCH 31.2 pg (25.7-33.7); MCHC 34.3 g/dl (32.0-36.0); MEAN CELL VOLUME 91.1 fl (80-96); MEAN PLT VOLUME 7.5 fl (7.5-11.1); PLATELET COUNT 92 10^3/uL (134-434)
[2021-09-07 07:44] LABS: CALCIUM 7.1 mg/dL (8.5-10.1)
[2021-09-07 07:45] LABS: BLOOD UREA NITROGEN 21.7 mg/dL (7-18); MAGNESIUM 1.8 mg/dL (1.8-2.4)
[2021-09-07 07:48] LABS: CREATININE 2.6 mg/dL (0.55-1.3); PHOSPHOROUS 3.2 mg/dL (2.5-4.9)
[2021-09-07 08:18] LABS: INR 1.05 (0.83-1.09); PROTHROMBIN TIME (PATIENT) 12.1 SEC (9.7-13.0)
[2021-09-07 08:20] LABS: ACTIVATED PTT 28.8 SECONDS (25.2-36.5)
[2021-09-07] MEDS ORDERED: LABETALOL HCL 5 MG/1 ML (100MG/20 ML VIAL) IVPUSH ONE (09:04)
[2021-09-07] MEDS ORDERED: FUROSEMIDE 40 MG/4 ML INJECTABLE VIAL IVPUSH ONE (09:06)
[2021-09-07] MEDS: PANTOPRAZOLE SODIUM 40 MG VIAL IVPUSH SCH ×2 (10:06→22:28)
[2021-09-07] MEDS: FLUTICASONE PROP 0.05% 16 GM NASAL SPRAY NS SCH (10:06)
[2021-09-07] MEDS: CALCIUM ACETATE 667 MG CAPSULE (FP) PO SCH ×3 (10:06→17:12)
[2021-09-07] MEDS: NYSTATIN 100,000 UNIT/GM TOPICAL CREAM 15 GM TUBE TP SCH ×2 (10:06→22:27)
[2021-09-07] MEDS: POLYETHYLENE GLYCOL (HEALTHYLAX) 3350 17 GM PACKET PO SCH (10:06)
[2021-09-07] MEDS: VITAMIN B COMP W-C 1 EA TABLET (NEPHRO-VITE) PO SCH (10:06)
[2021-09-07] MEDS: TIOTROPIUM BROMIDE 2.5 MCG (SPIRIVA) RESPIMAT INHALER IH SCH (10:07)
[2021-09-07] MEDS: CARVEDILOL 12.5 MG TABLET (FP) PO SCH ×2 (10:27→22:27)
[2021-09-07] MEDS: amLODIPine BESYLATE 10 MG TABLET (FP) PO SCH (10:28)
[2021-09-07] MEDS: oxyCODONE HCL 5 MG TABLET PO PRN ×2 (10:29→19:45)
[2021-09-07] MEDS: ALBUTEROL SO4 2.5/IPRATROPIUM 0.5 INH SOL 3 ML VIAL.NEB. NEB SCH ×3 (11:55→20:02)
[2021-09-07] MEDS ORDERED: SODIUM CHLORIDE 250 ML IV PRN (12:01)
[2021-09-07] MEDS: ATORVASTATIN CA 20 MG TABLET (FP) PO SCH (22:27)
[2021-09-08] MEDS: guaiFENesin 200 MG/10 ML 10 ML UNIT-DOSE CUPS PO PRN (00:56)
[2021-09-08] MEDS: ALBUTEROL SO4 0.083% IH SOL 2.5 MG/3 ML VIAL.NEB. NEB PRN (04:00)
[2021-09-08 07:29] LABS: HEMATOCRIT 27.3 % (32.4-45.2); HEMOGLOBIN 9.1 GM/dL (10.7-15.3); MCHC 33.3 g/dl (32.0-36.0); MEAN CELL VOLUME 93.1 fl (80-96); MEAN PLT VOLUME 8.9 fl (7.5-11.1); PLATELET COUNT 58 10^3/uL (134-434); RBC 2.93 M/mm3 (3.60-5.2); RDW 16.9 % (11.6-15.6); WHITE BLOOD COUNT 6.9 K/mm3 (4.0-10.0)
[2021-09-08] MEDS: ALBUTEROL SO4 2.5/IPRATROPIUM 0.5 INH SOL 3 ML VIAL.NEB. NEB SCH ×4 (08:00→20:40)
[2021-09-08 08:02] LABS: ALBUMIN 2.5 g/dl (3.4-5.0); BLOOD UREA NITROGEN 24.1 mg/dL (7-18); MAGNESIUM 1.8 mg/dL (1.8-2.4)
[2021-09-08 08:05] LABS: PHOSPHOROUS 3.9 mg/dL (2.5-4.9)
[2021-09-08 08:06] LABS: BILIRUBIN,TOTAL 0.7 mg/dL (0.2-1); TOT PROT 5.4 g/dl (6.4-8.2)
[2021-09-08] MEDS: CALCIUM ACETATE 667 MG CAPSULE (FP) PO SCH ×3 (09:05→17:49)
[2021-09-08] MEDS: amLODIPine BESYLATE 10 MG TABLET (FP) PO SCH (09:05)
[2021-09-08] MEDS: CARVEDILOL 12.5 MG TABLET (FP) PO SCH (09:05)
[2021-09-08] MEDS: VITAMIN B COMP W-C 1 EA TABLET (NEPHRO-VITE) PO SCH (09:05)
[2021-09-08] MEDS: PANTOPRAZOLE SODIUM 40 MG VIAL IVPUSH SCH ×2 (09:05→22:07)
[2021-09-08] MEDS: NYSTATIN 100,000 UNIT/GM TOPICAL CREAM 15 GM TUBE TP SCH ×2 (09:06→22:07)
[2021-09-08] MEDS: POLYETHYLENE GLYCOL (HEALTHYLAX) 3350 17 GM PACKET PO SCH (09:06)
[2021-09-08] MEDS: FLUTICASONE PROP 0.05% 16 GM NASAL SPRAY NS SCH (09:06)
[2021-09-08] MEDS: TIOTROPIUM BROMIDE 2.5 MCG (SPIRIVA) RESPIMAT INHALER IH SCH (09:06)
[2021-09-08] MEDS ORDERED: CARVEDILOL 12.5 MG TABLET (FP) PO ONE (10:42)
[2021-09-08] MEDS: NIFEdipine E.R 60 MG TABLET PO SCH (11:11)
[2021-09-08] MEDS: CARVEDILOL 25 MG TABLET (FP) PO SCH ×2 (11:26→22:06)
[2021-09-08] MEDS: oxyCODONE HCL 5 MG TABLET PO PRN ×2 (12:20→22:00)
[2021-09-08] MEDS ORDERED: FUROSEMIDE 100 MG/10 ML INJECTABLE VIAL IVPB ONE (13:19)
[2021-09-08] MEDS ORDERED: LORazepam 2 MG/ML SDV VIAL IVPUSH ONE (15:42)
[2021-09-08] MEDS ORDERED: LORazepam 0.5 MG TABLET PO PRN (15:47)
[2021-09-08] MEDS: ATORVASTATIN CA 20 MG TABLET (FP) PO SCH (22:07)
[2021-09-09] MEDS ORDERED: SODIUM CHLORIDE 250 ML IV PRN (07:23)
[2021-09-09] MEDS: oxyCODONE HCL 5 MG TABLET PO PRN (07:44)
[2021-09-09] MEDS: guaiFENesin 200 MG/10 ML 10 ML UNIT-DOSE CUPS PO PRN (07:44)
[2021-09-09] MEDS: ALBUTEROL SO4 2.5/IPRATROPIUM 0.5 INH SOL 3 ML VIAL.NEB. NEB SCH ×4 (08:10→21:09)
[2021-09-09] MEDS ORDERED: LORazepam 1 MG TABLET PO PRN (08:23)
[2021-09-09 08:53] LABS: BASO % 0.1 % (0-2.0); EOS % 0.6 % (0-4.5); HEMATOCRIT 29.3 % (32.4-45.2); HEMOGLOBIN 9.5 GM/dL (10.7-15.3); LYMPH % 4.4 % (8-40); MCH 30.6 pg (25.7-33.7); MCHC 32.5 g/dl (32.0-36.0); MEAN CELL VOLUME 94.2 fl (80-96); MEAN PLT VOLUME 8.8 fl (7.5-11.1); MONO % 5.1 % (3.8-10.2); NEUT % 89.8 % (42.8-82.8); PLATELET COUNT 100 10^3/uL (134-434); RBC 3.11 M/mm3 (3.60-5.2); RDW 16.7 % (11.6-15.6); WHITE BLOOD COUNT 7.5 K/mm3 (4.0-10.0)
[2021-09-09] MEDS ORDERED: EPOETIN ALFA-EPBX 10,000 UNIT/ML VIAL SQ ONE (09:00)
[2021-09-09 09:08] LABS: BLOOD UREA NITROGEN 30.7 mg/dL (7-18)
[2021-09-09 09:11] LABS: CREATININE 3.6 mg/dL (0.55-1.3); PHOSPHOROUS 4.7 mg/dL (2.5-4.9)
[2021-09-09] MEDS: CALCIUM ACETATE 667 MG CAPSULE (FP) PO SCH ×3 (09:15→17:39)
[2021-09-09 09:29] LABS: CALCIUM 8.1 mg/dL (8.5-10.1)
[2021-09-09] MEDS: FLUTICASONE PROP 0.05% 16 GM NASAL SPRAY NS SCH (10:17)
[2021-09-09] MEDS: CARVEDILOL 25 MG TABLET (FP) PO SCH ×2 (10:17→22:04)
[2021-09-09] MEDS: POLYETHYLENE GLYCOL (HEALTHYLAX) 3350 17 GM PACKET PO SCH (10:18)
[2021-09-09] MEDS: QUEtiapine FUMARATE 100 MG TABLET (FP) PO SCH ×2 (10:18→22:03)
[2021-09-09] MEDS: TIOTROPIUM BROMIDE 2.5 MCG (SPIRIVA) RESPIMAT INHALER IH SCH (10:18)
[2021-09-09] MEDS: PANTOPRAZOLE SODIUM 40 MG VIAL IVPUSH SCH ×2 (10:18→22:03)
[2021-09-09] MEDS: VITAMIN B COMP W-C 1 EA TABLET (NEPHRO-VITE) PO SCH (10:18)
[2021-09-09] MEDS: NYSTATIN 100,000 UNIT/GM TOPICAL CREAM 15 GM TUBE TP SCH ×2 (10:18→22:00)
[2021-09-09] MEDS ORDERED: NIFEdipine E.R 60 MG TABLET PO ONE (11:30)
[2021-09-09] MEDS: NIFEdipine E.R 60 MG TABLET PO SCH (11:42)
[2021-09-09] MEDS ORDERED: SODIUM CHLORIDE 500 ML IV STA (14:33)
[2021-09-09] MEDS: ATORVASTATIN CA 20 MG TABLET (FP) PO SCH (22:03)
[2021-09-10] MEDS: ALBUTEROL SO4 0.083% IH SOL 2.5 MG/3 ML VIAL.NEB. NEB PRN ×3 (05:09→11:10)
[2021-09-10] MEDS: oxyCODONE HCL 5 MG TABLET PO PRN (05:14)
[2021-09-10] MEDS: guaiFENesin 200 MG/10 ML 10 ML UNIT-DOSE CUPS PO PRN (05:15)
[2021-09-10] MEDS: ALBUTEROL SO4 2.5/IPRATROPIUM 0.5 INH SOL 3 ML VIAL.NEB. NEB SCH ×4 (07:25→19:56)
[2021-09-10] MEDS ORDERED: ACETAMINOPHEN 325 MG TABLET (FP) PO PRN (09:12)
[2021-09-10] MEDS ORDERED: oxyCODONE HCL 5 MG TABLET PO PRN (09:12)
[2021-09-10] MEDS ORDERED: NIFEdipine E.R 60 MG TABLET PO SCH (10:00)
[2021-09-10] MEDS: CARVEDILOL 25 MG TABLET (FP) PO SCH ×2 (10:09→21:46)
[2021-09-10] MEDS: POLYETHYLENE GLYCOL (HEALTHYLAX) 3350 17 GM PACKET PO SCH (10:09)
[2021-09-10] MEDS: VITAMIN B COMP W-C 1 EA TABLET (NEPHRO-VITE) PO SCH (10:10)
[2021-09-10] MEDS: PANTOPRAZOLE SODIUM 40 MG VIAL IVPUSH SCH ×2 (10:11→21:45)
[2021-09-10] MEDS: TIOTROPIUM BROMIDE 2.5 MCG (SPIRIVA) RESPIMAT INHALER IH SCH (10:11)
[2021-09-10] MEDS: QUEtiapine FUMARATE 100 MG TABLET (FP) PO SCH ×2 (10:11→21:46)
[2021-09-10] MEDS: FLUTICASONE PROP 0.05% 16 GM NASAL SPRAY NS SCH (10:13)
[2021-09-10] MEDS: NYSTATIN 100,000 UNIT/GM TOPICAL CREAM 15 GM TUBE TP SCH ×2 (10:14→21:47)
[2021-09-10] MEDS: CALCIUM ACETATE 667 MG CAPSULE (FP) PO SCH ×3 (12:37→18:12)
[2021-09-10] MEDS ORDERED: SODIUM CHLORIDE 250 ML IV PRN (16:44)
[2021-09-10] MEDS: ATORVASTATIN CA 20 MG TABLET (FP) PO SCH (21:46)
[2021-09-11] MEDS ORDERED: NALOXONE HCL 0.4 MG/ML VIAL IVPUSH ONE (01:31)
[2021-09-11] MEDS: guaiFENesin 200 MG/10 ML 10 ML UNIT-DOSE CUPS PO PRN ×2 (03:20→21:06)
[2021-09-11] MEDS: ALBUTEROL SO4 2.5/IPRATROPIUM 0.5 INH SOL 3 ML VIAL.NEB. NEB SCH ×4 (07:41→20:10)
[2021-09-11 07:58] LABS: HEMATOCRIT 25.7 % (32.4-45.2); HEMOGLOBIN 8.4 GM/dL (10.7-15.3); MCH 31.2 pg (25.7-33.7); MCHC 32.8 g/dl (32.0-36.0); MEAN CELL VOLUME 95.3 fl (80-96); MEAN PLT VOLUME 8.7 fl (7.5-11.1); PLATELET COUNT 78 10^3/uL (134-434); RBC 2.69 M/mm3 (3.60-5.2); RDW 17.1 % (11.6-15.6); WHITE BLOOD COUNT 7.8 K/mm3 (4.0-10.0)
[2021-09-11 08:08] LABS: CALCIUM 7.9 mg/dL (8.5-10.1)
[2021-09-11 08:09] LABS: MAGNESIUM 1.9 mg/dL (1.8-2.4)
[2021-09-11 08:09] LABS: BLOOD UREA NITROGEN 28.4 mg/dL (7-18)
[2021-09-11 08:12] LABS: CREATININE 3.8 mg/dL (0.55-1.3)
[2021-09-11 08:13] LABS: TOT PROT 5.2 g/dl (6.4-8.2)
[2021-09-11 08:13] LABS: PHOSPHOROUS 4.3 mg/dL (2.5-4.9)
[2021-09-11 08:14] LABS: BILIRUBIN,TOTAL 0.7 mg/dL (0.2-1)
[2021-09-11] MEDS: CALCIUM ACETATE 667 MG CAPSULE (FP) PO SCH ×3 (09:00→17:17)
[2021-09-11 09:36] LABS: ARTERIAL BLD GAS O2 SATURATION 96.5 % (95-98); ARTERIAL BLOOD GAS BASE EXCESS -0.4 mmol/L (-2-2); ARTERIAL BLOOD GAS PO2 100.5 mmHg (80-100); ARTERIAL BLOOD GAS pH 7.255 (7.350-7.450)
[2021-09-11 09:38] LABS: ALLENS TEST POSITIVE
[2021-09-11] MEDS ORDERED: EPOETIN ALFA-EPBX 10,000 UNIT/ML VIAL IVPUSH ONE (10:00)
[2021-09-11 10:03] LABS: ANISOCYTOSIS 0; HELMET CELLS 0; HOWELL-JOLLY BODIES 0; MACROCYTOSIS 0; OVALOCYTE 0; ROULEAU 0; SICKELED CELLS 0; TARGET CELLS 0; TEAR DROP CELLS 0; TOXIC GRANULATION 0
[2021-09-11] MEDS: NYSTATIN 100,000 UNIT/GM TOPICAL CREAM 15 GM TUBE TP SCH ×2 (10:35→23:08)
[2021-09-11] MEDS: FLUTICASONE PROP 0.05% 16 GM NASAL SPRAY NS SCH (10:36)
[2021-09-11] MEDS: TIOTROPIUM BROMIDE 2.5 MCG (SPIRIVA) RESPIMAT INHALER IH SCH (10:37)
[2021-09-11] MEDS ORDERED: LACTATED RINGERS SOLUTION 1000 ML INFUS.BAG IV ONE (16:01)
[2021-09-11] MEDS: CARVEDILOL 25 MG TABLET (FP) PO SCH ×2 (16:08→23:09)
[2021-09-11] MEDS: POLYETHYLENE GLYCOL (HEALTHYLAX) 3350 17 GM PACKET PO SCH (16:11)
[2021-09-11] MEDS: VITAMIN B COMP W-C 1 EA TABLET (NEPHRO-VITE) PO SCH (16:11)
[2021-09-11] MEDS: NIFEdipine E.R 60 MG TABLET PO SCH (16:14)
[2021-09-11] MEDS: QUEtiapine FUMARATE 100 MG TABLET (FP) PO SCH ×2 (16:15→23:10)
[2021-09-11] MEDS: PANTOPRAZOLE SODIUM 40 MG VIAL IVPUSH SCH ×2 (16:19→23:08)
[2021-09-11] MEDS: ATORVASTATIN CA 20 MG TABLET (FP) PO SCH (21:00)
[2021-09-11] MEDS: hydrOXYzine PAMOATE 50 MG CAPSULE (FP) PO SCH (23:50)
[2021-09-12] MEDS: ALBUTEROL SO4 0.083% IH SOL 2.5 MG/3 ML VIAL.NEB. NEB PRN (03:20)
[2021-09-12] MEDS: ALBUTEROL SO4 2.5/IPRATROPIUM 0.5 INH SOL 3 ML VIAL.NEB. NEB SCH ×4 (08:15→20:03)
[2021-09-12] MEDS: CARVEDILOL 25 MG TABLET (FP) PO SCH ×2 (09:17→22:16)
[2021-09-12] MEDS: POLYETHYLENE GLYCOL (HEALTHYLAX) 3350 17 GM PACKET PO SCH (09:17)
[2021-09-12] MEDS: CALCIUM ACETATE 667 MG CAPSULE (FP) PO SCH ×4 (09:17→19:26)
[2021-09-12] MEDS: NIFEdipine E.R 60 MG TABLET PO SCH (09:18)
[2021-09-12] MEDS: hydrOXYzine PAMOATE 50 MG CAPSULE (FP) PO SCH ×5 (09:18→22:15)
[2021-09-12] MEDS: PANTOPRAZOLE SODIUM 40 MG VIAL IVPUSH SCH ×2 (09:18→21:37)
[2021-09-12] MEDS: QUEtiapine FUMARATE 100 MG TABLET (FP) PO SCH ×2 (09:18→22:15)
[2021-09-12] MEDS: TIOTROPIUM BROMIDE 2.5 MCG (SPIRIVA) RESPIMAT INHALER IH SCH (09:18)
[2021-09-12] MEDS: VITAMIN B COMP W-C 1 EA TABLET (NEPHRO-VITE) PO SCH (09:18)
[2021-09-12] MEDS: FLUTICASONE PROP 0.05% 16 GM NASAL SPRAY NS SCH (09:20)
[2021-09-12] MEDS: NYSTATIN 100,000 UNIT/GM TOPICAL CREAM 15 GM TUBE TP SCH ×2 (09:21→21:37)
[2021-09-12] MEDS ORDERED: FUROSEMIDE 40 MG/4 ML INJECTABLE VIAL IVPB ONE (09:45)
[2021-09-12] MEDS: guaiFENesin 200 MG/10 ML 10 ML UNIT-DOSE CUPS PO PRN (09:54)
[2021-09-12] MEDS ORDERED: ACETAMINOPHEN 1000 MG/100 ML BAG IVPB PRN ×3 (10:03→22:29)
[2021-09-12] MEDS: LIDOCAINE 5% TOPICAL PATCH TP SCH (11:27)
[2021-09-12] MEDS ORDERED: SODIUM CHLORIDE 250 ML IV PRN (12:53)
[2021-09-12] MEDS ORDERED: ACETAMINOPHEN 325 MG TABLET (FP) PO PRN (16:32)
[2021-09-12 18:43] LABS: ARTERIAL BLD GAS O2 SATURATION 84.5 % (95-98); ARTERIAL BLOOD GAS BASE EXCESS 1.7 mmol/L (-2-2); ARTERIAL BLOOD GAS PO2 54.1 mmHg (80-100); ARTERIAL BLOOD GAS pH 7.312 (7.350-7.450)
[2021-09-12 18:49] LABS: BASO % 0.2 % (0-2.0); EOS % 2.2 % (0-4.5); HEMATOCRIT 30.3 % (32.4-45.2); HEMOGLOBIN 9.7 GM/dL (10.7-15.3); LYMPH % 4.9 % (8-40); MCH 30.5 pg (25.7-33.7); MEAN CELL VOLUME 95.2 fl (80-96); MEAN PLT VOLUME 9.1 fl (7.5-11.1); MONO % 6.3 % (3.8-10.2); NEUT % 86.4 % (42.8-82.8); PLATELET COUNT 53 10^3/uL (134-434); RBC 3.18 M/mm3 (3.60-5.2); RDW 17.8 % (11.6-15.6); WHITE BLOOD COUNT 3.8 K/mm3 (4.0-10.0)
[2021-09-12 18:49] LABS: ALLENS TEST POSITIVE; VENT MODE S/T
[2021-09-12 18:50] LABS: VENT RATE 16
[2021-09-12 19:22] LABS: ANISOCYTOSIS 0; MACROCYTOSIS 0
[2021-09-12 19:56] LABS: CREATININE 2.9 mg/dL (0.55-1.3)
[2021-09-12 20:11] LABS: BLOOD UREA NITROGEN 19.9 mg/dL (7-18)
[2021-09-12] MEDS: LIDOCAINE PATCH REMOVAL MC SCH (21:37)
[2021-09-12] MEDS: ATORVASTATIN CA 20 MG TABLET (FP) PO SCH (22:16)
[2021-09-13 07:06] LABS: HEMATOCRIT 24.5 % (32.4-45.2); HEMOGLOBIN 7.8 GM/dL (10.7-15.3); MCH 30.4 pg (25.7-33.7); MCHC 31.8 g/dl (32.0-36.0); MEAN CELL VOLUME 95.7 fl (80-96); MEAN PLT VOLUME 8.9 fl (7.5-11.1); PLATELET COUNT 77 10^3/uL (134-434); RBC 2.56 M/mm3 (3.60-5.2); RDW 17.2 % (11.6-15.6); WHITE BLOOD COUNT 4.1 K/mm3 (4.0-10.0)
[2021-09-13] MEDS ORDERED: EPOETIN ALFA-EPBX 10,000 UNIT/ML VIAL IVPUSH ONE (07:15)
[2021-09-13 07:21] LABS: CHLORIDE < 50 mmol/L (98-107); SODIUM < 50 mmol/L (136-145)
[2021-09-13 07:29] LABS: CALCIUM 7.9 mg/dL (8.5-10.1)
[2021-09-13 07:30] LABS: ALBUMIN 2.1 g/dl (3.4-5.0); ANION GAP -30 MMOL/L (8-16); BLOOD UREA NITROGEN 22.7 mg/dL (7-18); CO2 30 mmol/L (21-32); GLUCOSE,RANDOM 73 mg/dL (74-106); MAGNESIUM 1.9 mg/dL (1.8-2.4)
[2021-09-13 07:33] LABS: CREATININE 3.1 mg/dL (0.55-1.3); PHOSPHOROUS 3.1 mg/dL (2.5-4.9); SGOT/AST 8 U/L (15-37); SGPT/ALT 7 U/L (13-61)
[2021-09-13 07:34] LABS: BILIRUBIN,TOTAL 1.1 mg/dL (0.2-1)
[2021-09-13 07:35] LABS: TOT PROT 5.2 g/dl (6.4-8.2)
[2021-09-13] MEDS: ALBUTEROL SO4 2.5/IPRATROPIUM 0.5 INH SOL 3 ML VIAL.NEB. NEB SCH ×4 (07:35→20:42)
[2021-09-13 07:36] LABS: ALK PHOS 46 U/L (45-117)
[2021-09-13] MEDS ORDERED: ACETAMINOPHEN 325 MG TABLET (FP) PO PRN (07:48)
[2021-09-13] MEDS ORDERED: oxyCODONE HCL 5 MG TABLET PO PRN (07:51)
[2021-09-13] MEDS: guaiFENesin 200 MG/10 ML 10 ML UNIT-DOSE CUPS PO PRN (08:22)
[2021-09-13] MEDS: CALCIUM ACETATE 667 MG CAPSULE (FP) PO SCH ×3 (08:24→17:34)
[2021-09-13] MEDS: ALBUMIN HUMAN 25% 12.5 GM/50 ML VIAL IV SCH ×4 (08:44→10:04)
[2021-09-13 09:17] LABS: BLOOD UREA NITROGEN 15.2 mg/dL (7-18); CALCIUM 7.8 mg/dL (8.5-10.1)
[2021-09-13 09:20] LABS: CREATININE 2.2 mg/dL (0.55-1.3)
[2021-09-13] MEDS: CARVEDILOL 25 MG TABLET (FP) PO SCH (10:02)
[2021-09-13] MEDS: POLYETHYLENE GLYCOL (HEALTHYLAX) 3350 17 GM PACKET PO SCH (10:03)
[2021-09-13] MEDS: FLUTICASONE PROP 0.05% 16 GM NASAL SPRAY NS SCH (10:03)
[2021-09-13] MEDS: VITAMIN B COMP W-C 1 EA TABLET (NEPHRO-VITE) PO SCH (10:04)
[2021-09-13] MEDS: NYSTATIN 100,000 UNIT/GM TOPICAL CREAM 15 GM TUBE TP SCH ×2 (10:04→21:46)
[2021-09-13] MEDS: LIDOCAINE 5% TOPICAL PATCH TP SCH (10:04)
[2021-09-13] MEDS: PANTOPRAZOLE SODIUM 40 MG VIAL IVPUSH SCH ×2 (10:06→21:46)
[2021-09-13] MEDS: NIFEdipine E.R 60 MG TABLET PO SCH (10:06)
[2021-09-13] MEDS: hydrOXYzine PAMOATE 50 MG CAPSULE (FP) PO SCH ×4 (10:07→21:45)
[2021-09-13] MEDS: TIOTROPIUM BROMIDE 2.5 MCG (SPIRIVA) RESPIMAT INHALER IH SCH (10:07)
[2021-09-13] MEDS: QUEtiapine FUMARATE 100 MG TABLET (FP) PO SCH ×2 (10:07→21:46)
[2021-09-13] MEDS ORDERED: KCL 10 MEQ IVPB 10 MEQ/100 ML INFUS.BAG IVPB SCH (11:30)
[2021-09-13] MEDS ORDERED: POTASSIUM CHLORIDE TABS 20 MEQ TABLET.ER (FP) PO ONE (11:33)
[2021-09-13] MEDS ORDERED: ONDANSETRON 4 MG/2 ML VIAL IVPUSH ONE (12:25)
[2021-09-13] MEDS ORDERED: LIDOCAINE HCL 1%, 10 MG/ML (20ML VIAL) ONE (12:55)
[2021-09-13] MEDS ORDERED: LIDOCAINE HCL 1%, 10 MG/ML (20ML VIAL) SQ ONE (14:07)
[2021-09-13] MEDS: ATORVASTATIN CA 20 MG TABLET (FP) PO SCH (21:45)
[2021-09-13] MEDS: LIDOCAINE PATCH REMOVAL MC SCH (21:49)
[2021-09-14 07:27] LABS: HEMATOCRIT 24.4 % (32.4-45.2); HEMOGLOBIN 7.8 GM/dL (10.7-15.3); MCH 30.8 pg (25.7-33.7); MCHC 31.7 g/dl (32.0-36.0); MEAN PLT VOLUME 9.2 fl (7.5-11.1); PLATELET COUNT 71 10^3/uL (134-434); RBC 2.52 M/mm3 (3.60-5.2); RDW 17.6 % (11.6-15.6); WHITE BLOOD COUNT 3.4 K/mm3 (4.0-10.0)
[2021-09-14] MEDS: CALCIUM ACETATE 667 MG CAPSULE (FP) PO SCH ×3 (07:58→18:05)
[2021-09-14 08:09] LABS: CALCIUM 8.1 mg/dL (8.5-10.1)
[2021-09-14 08:10] LABS: BLOOD UREA NITROGEN 12.4 mg/dL (7-18); MAGNESIUM 1.8 mg/dL (1.8-2.4)
[2021-09-14 08:13] LABS: CREATININE 2.5 mg/dL (0.55-1.3); PHOSPHOROUS 2.8 mg/dL (2.5-4.9)
[2021-09-14] MEDS: ALBUTEROL SO4 2.5/IPRATROPIUM 0.5 INH SOL 3 ML VIAL.NEB. NEB SCH ×4 (08:20→20:09)
[2021-09-14] MEDS: PANTOPRAZOLE SODIUM 40 MG VIAL IVPUSH SCH ×2 (10:30→22:04)
[2021-09-14] MEDS: LIDOCAINE 5% TOPICAL PATCH TP SCH (11:05)
[2021-09-14] MEDS: FLUTICASONE PROP 0.05% 16 GM NASAL SPRAY NS SCH (11:05)
[2021-09-14] MEDS: POLYETHYLENE GLYCOL (HEALTHYLAX) 3350 17 GM PACKET PO SCH (11:05)
[2021-09-14] MEDS: NYSTATIN 100,000 UNIT/GM TOPICAL CREAM 15 GM TUBE TP SCH ×2 (11:06→22:04)
[2021-09-14] MEDS: QUEtiapine FUMARATE 100 MG TABLET (FP) PO SCH ×2 (11:06→22:04)
[2021-09-14] MEDS: VITAMIN B COMP W-C 1 EA TABLET (NEPHRO-VITE) PO SCH (11:06)
[2021-09-14] MEDS: TIOTROPIUM BROMIDE 2.5 MCG (SPIRIVA) RESPIMAT INHALER IH SCH (11:06)
[2021-09-14] MEDS: hydrOXYzine PAMOATE 50 MG CAPSULE (FP) PO SCH ×4 (11:07→22:05)
[2021-09-14] MEDS ORDERED: SODIUM CHLORIDE 250 ML IV PRN (12:04)
[2021-09-14] MEDS ORDERED: EPOETIN ALFA-EPBX 10,000 UNIT/ML VIAL IVPUSH ONE (13:00)
[2021-09-14] MEDS: oxyCODONE HCL 5 MG TABLET PO PRN ×2 (13:25→22:04)
[2021-09-14] MEDS: ATORVASTATIN CA 20 MG TABLET (FP) PO SCH (22:04)
[2021-09-14] MEDS: LIDOCAINE PATCH REMOVAL MC SCH (22:04)
[2021-09-15 07:20] LABS: BASO % 0.8 % (0-2.0); EOS % 2.1 % (0-4.5); HEMATOCRIT 25.4 % (32.4-45.2); LYMPH % 12.7 % (8-40); MCH 30.4 pg (25.7-33.7); MCHC 31.4 g/dl (32.0-36.0); MEAN CELL VOLUME 96.9 fl (80-96); MEAN PLT VOLUME 9.3 fl (7.5-11.1); MONO % 8.2 % (3.8-10.2); NEUT % 76.2 % (42.8-82.8); PLATELET COUNT 65 10^3/uL (134-434); RBC 2.62 M/mm3 (3.60-5.2); RDW 17.6 % (11.6-15.6); WHITE BLOOD COUNT 3.6 K/mm3 (4.0-10.0)
[2021-09-15 07:29] LABS: BLOOD UREA NITROGEN 9.2 mg/dL (7-18); CALCIUM 7.9 mg/dL (8.5-10.1); MAGNESIUM 1.8 mg/dL (1.8-2.4)
[2021-09-15 07:33] LABS: CREATININE 2.2 mg/dL (0.55-1.3)
[2021-09-15 07:43] LABS: ALBUMIN 2.7 g/dl (3.4-5.0)
[2021-09-15] MEDS: ALBUTEROL SO4 2.5/IPRATROPIUM 0.5 INH SOL 3 ML VIAL.NEB. NEB SCH ×4 (08:00→20:30)
[2021-09-15] MEDS: LIDOCAINE 5% TOPICAL PATCH TP SCH (09:03)
[2021-09-15] MEDS: PANTOPRAZOLE SODIUM 40 MG VIAL IVPUSH SCH ×2 (09:03→21:02)
[2021-09-15] MEDS: KCL 10 MEQ IVPB 10 MEQ/100 ML INFUS.BAG IVPB SCH ×3 (09:03→14:01)
[2021-09-15] MEDS: POLYETHYLENE GLYCOL (HEALTHYLAX) 3350 17 GM PACKET PO SCH (09:03)
[2021-09-15] MEDS: CALCIUM ACETATE 667 MG CAPSULE (FP) PO SCH ×3 (09:04→18:00)
[2021-09-15] MEDS: QUEtiapine FUMARATE 100 MG TABLET (FP) PO SCH ×2 (09:04→21:02)
[2021-09-15] MEDS: oxyCODONE HCL 5 MG TABLET PO PRN ×3 (09:04→21:12)
[2021-09-15] MEDS: FLUTICASONE PROP 0.05% 16 GM NASAL SPRAY NS SCH (09:05)
[2021-09-15] MEDS: NYSTATIN 100,000 UNIT/GM TOPICAL CREAM 15 GM TUBE TP SCH ×2 (09:05→21:02)
[2021-09-15] MEDS: TIOTROPIUM BROMIDE 2.5 MCG (SPIRIVA) RESPIMAT INHALER IH SCH (09:05)
[2021-09-15] MEDS: VITAMIN B COMP W-C 1 EA TABLET (NEPHRO-VITE) PO SCH (09:05)
[2021-09-15] MEDS: hydrOXYzine PAMOATE 50 MG CAPSULE (FP) PO SCH ×4 (09:05→21:02)
[2021-09-15] MEDS ORDERED: SODIUM CHLORIDE 250 ML IV PRN (11:13)
[2021-09-15] MEDS: ATORVASTATIN CA 20 MG TABLET (FP) PO SCH (21:02)
[2021-09-15] MEDS: LIDOCAINE PATCH REMOVAL MC SCH (21:02)
[2021-09-16] MEDS: oxyCODONE HCL 5 MG TABLET PO PRN ×3 (04:39→19:57)
[2021-09-16] MEDS ORDERED: LORazepam 2 MG/ML SDV VIAL IVPB ONE ×2 (05:20→21:07)
[2021-09-16] MEDS: ALBUTEROL SO4 0.083% IH SOL 2.5 MG/3 ML VIAL.NEB. NEB PRN (05:33)
[2021-09-16 06:41] LABS: BASO % 0.7 % (0-2.0); EOS % 2.9 % (0-4.5); HEMATOCRIT 25.5 % (32.4-45.2); HEMOGLOBIN 8.1 GM/dL (10.7-15.3); LYMPH % 9.4 % (8-40); MCH 30.6 pg (25.7-33.7); MCHC 31.9 g/dl (32.0-36.0); MEAN CELL VOLUME 95.9 fl (80-96); MEAN PLT VOLUME 9.8 fl (7.5-11.1); MONO % 5.7 % (3.8-10.2); NEUT % 81.3 % (42.8-82.8); PLATELET COUNT 68 10^3/uL (134-434); RBC 2.65 M/mm3 (3.60-5.2); RDW 17.4 % (11.6-15.6); WHITE BLOOD COUNT 5.2 K/mm3 (4.0-10.0)
[2021-09-16 06:53] LABS: ALBUMIN 2.7 g/dl (3.4-5.0); BLOOD UREA NITROGEN 13.6 mg/dL (7-18); MAGNESIUM 1.7 mg/dL (1.8-2.4)
[2021-09-16 06:56] LABS: PHOSPHOROUS 2.1 mg/dL (2.5-4.9)
[2021-09-16 06:57] LABS: CREATININE 2.9 mg/dL (0.55-1.3)
[2021-09-16 06:58] LABS: BILIRUBIN,TOTAL 0.8 mg/dL (0.2-1)
[2021-09-16] MEDS ORDERED: EPOETIN ALFA-EPBX 10,000 UNIT/ML VIAL SQ ONE (07:00)
[2021-09-16] MEDS: ALBUTEROL SO4 2.5/IPRATROPIUM 0.5 INH SOL 3 ML VIAL.NEB. NEB SCH ×4 (07:20→20:09)
[2021-09-16] MEDS: CALCIUM ACETATE 667 MG CAPSULE (FP) PO SCH ×3 (07:57→18:30)
[2021-09-16] MEDS ORDERED: MIDODRINE HCL 5 MG TABLET PO ONE (08:00)
[2021-09-16] MEDS ORDERED: MAGNESIUM SULF 50% (8.12 MEQ/2 ML-1 GM VIAL) IVPB ONE (09:03)
[2021-09-16] MEDS: LIDOCAINE 5% TOPICAL PATCH TP SCH (09:41)
[2021-09-16] MEDS: VITAMIN B COMP W-C 1 EA TABLET (NEPHRO-VITE) PO SCH (09:41)
[2021-09-16] MEDS: QUEtiapine FUMARATE 100 MG TABLET (FP) PO SCH ×2 (09:41→21:11)
[2021-09-16] MEDS: POLYETHYLENE GLYCOL (HEALTHYLAX) 3350 17 GM PACKET PO SCH (09:41)
[2021-09-16] MEDS: FLUTICASONE PROP 0.05% 16 GM NASAL SPRAY NS SCH (09:41)
[2021-09-16] MEDS: NYSTATIN 100,000 UNIT/GM TOPICAL CREAM 15 GM TUBE TP SCH ×2 (09:41→21:12)
[2021-09-16] MEDS: PANTOPRAZOLE SODIUM 40 MG VIAL IVPUSH SCH ×2 (09:42→21:11)
[2021-09-16] MEDS: hydrOXYzine PAMOATE 50 MG CAPSULE (FP) PO SCH ×4 (09:42→21:14)
[2021-09-16] MEDS: TIOTROPIUM BROMIDE 2.5 MCG (SPIRIVA) RESPIMAT INHALER IH SCH (09:42)
[2021-09-16] MEDS ORDERED: MIDODRINE HCL 5 MG TABLET PO SCH (10:00)
[2021-09-16] MEDS: ACETAMINOPHEN 325 MG TABLET (FP) PO PRN (15:16)
[2021-09-16] MEDS: MIRTAZAPINE 15 MG TABLET (FP) PO SCH (21:11)
[2021-09-16] MEDS: ATORVASTATIN CA 20 MG TABLET (FP) PO SCH (21:11)
[2021-09-16] MEDS: LIDOCAINE PATCH REMOVAL MC SCH (21:12)
[2021-09-17 07:12] LABS: BASO % 0.6 % (0-2.0); EOS % 2.2 % (0-4.5); HEMATOCRIT 26.6 % (32.4-45.2); HEMOGLOBIN 8.4 GM/dL (10.7-15.3); LYMPH % 9.6 % (8-40); MCH 30.4 pg (25.7-33.7); MCHC 31.7 g/dl (32.0-36.0); MEAN CELL VOLUME 95.9 fl (80-96); MEAN PLT VOLUME 9.8 fl (7.5-11.1); MONO % 5.5 % (3.8-10.2); NEUT % 82.1 % (42.8-82.8); PLATELET COUNT 82 10^3/uL (134-434); RBC 2.77 M/mm3 (3.60-5.2); WHITE BLOOD COUNT 4.9 K/mm3 (4.0-10.0)
[2021-09-17 07:34] LABS: ALBUMIN 2.5 g/dl (3.4-5.0); MAGNESIUM 1.9 mg/dL (1.8-2.4)
[2021-09-17 07:37] LABS: CREATININE 2.5 mg/dL (0.55-1.3); PHOSPHOROUS 1.9 mg/dL (2.5-4.9)
[2021-09-17 07:39] LABS: BILIRUBIN,TOTAL 0.6 mg/dL (0.2-1)
[2021-09-17] MEDS: ALBUTEROL SO4 2.5/IPRATROPIUM 0.5 INH SOL 3 ML VIAL.NEB. NEB SCH ×4 (09:38→20:32)
[2021-09-17] MEDS: hydrOXYzine PAMOATE 50 MG CAPSULE (FP) PO SCH ×4 (10:17→21:58)
[2021-09-17] MEDS: CALCIUM ACETATE 667 MG CAPSULE (FP) PO SCH ×3 (10:17→16:56)
[2021-09-17] MEDS: VITAMIN B COMP W-C 1 EA TABLET (NEPHRO-VITE) PO SCH (10:17)
[2021-09-17] MEDS: NYSTATIN 100,000 UNIT/GM TOPICAL CREAM 15 GM TUBE TP SCH ×2 (10:19→21:59)
[2021-09-17] MEDS: POLYETHYLENE GLYCOL (HEALTHYLAX) 3350 17 GM PACKET PO SCH (10:19)
[2021-09-17] MEDS: PANTOPRAZOLE SODIUM 40 MG VIAL IVPUSH SCH ×2 (10:19→21:58)
[2021-09-17] MEDS: LIDOCAINE 5% TOPICAL PATCH TP SCH (10:19)
[2021-09-17] MEDS: QUEtiapine FUMARATE 100 MG TABLET (FP) PO SCH ×2 (10:28→21:58)
[2021-09-17] MEDS: FLUTICASONE PROP 0.05% 16 GM NASAL SPRAY NS SCH (10:32)
[2021-09-17] MEDS: TIOTROPIUM BROMIDE 2.5 MCG (SPIRIVA) RESPIMAT INHALER IH SCH (10:32)
[2021-09-17] MEDS: oxyCODONE HCL 5 MG TABLET PO PRN ×2 (16:55→21:58)
[2021-09-17] MEDS: ACETAMINOPHEN 325 MG TABLET (FP) PO PRN (19:54)
[2021-09-17] MEDS: guaiFENesin 200 MG/10 ML 10 ML UNIT-DOSE CUPS PO PRN (20:05)
[2021-09-17] MEDS: MIRTAZAPINE 15 MG TABLET (FP) PO SCH (21:59)
[2021-09-17] MEDS: LIDOCAINE PATCH REMOVAL MC SCH (21:59)
[2021-09-17] MEDS: ATORVASTATIN CA 20 MG TABLET (FP) PO SCH (21:59)
[2021-09-18] MEDS ORDERED: EPOETIN ALFA-EPBX 10,000 UNIT/ML VIAL IVPUSH ONE (07:00)
[2021-09-18] MEDS ORDERED: SODIUM CHLORIDE 250 ML IV PRN (07:00)
[2021-09-18] MEDS: MIDODRINE HCL 5 MG TABLET PO SCH ×2 (07:20→11:16)
[2021-09-18 07:29] LABS: ALBUMIN 2.5 g/dl (3.4-5.0); BLOOD UREA NITROGEN 17.4 mg/dL (7-18); MAGNESIUM 1.9 mg/dL (1.8-2.4)
[2021-09-18 07:32] LABS: CREATININE 3.1 mg/dL (0.55-1.3); PHOSPHOROUS 2.1 mg/dL (2.5-4.9)
[2021-09-18 07:34] LABS: BILIRUBIN,TOTAL 0.6 mg/dL (0.2-1)
[2021-09-18 07:37] LABS: BASO % 0.4 % (0-2.0); HEMATOCRIT 29.3 % (32.4-45.2); HEMOGLOBIN 9.3 GM/dL (10.7-15.3); LYMPH % 4.8 % (8-40); MCH 30.7 pg (25.7-33.7); MCHC 31.8 g/dl (32.0-36.0); MEAN CELL VOLUME 96.5 fl (80-96); MEAN PLT VOLUME 9.1 fl (7.5-11.1); MONO % 4.4 % (3.8-10.2); NEUT % 88.4 % (42.8-82.8); PLATELET COUNT 95 10^3/uL (134-434); RBC 3.03 M/mm3 (3.60-5.2); RDW 18.2 % (11.6-15.6); WHITE BLOOD COUNT 6.6 K/mm3 (4.0-10.0)
[2021-09-18] MEDS: ALBUMIN HUMAN 25% 100 ML VIAL IV SCH ×2 (08:30→09:00)
[2021-09-18] MEDS: ALBUTEROL SO4 2.5/IPRATROPIUM 0.5 INH SOL 3 ML VIAL.NEB. NEB SCH ×3 (08:35→16:22)
[2021-09-18 08:42] LABS: HEMATOCRIT 29.4 % (32.4-45.2); HEMOGLOBIN 9.4 GM/dL (10.7-15.3); MCH 30.5 pg (25.7-33.7); MCHC 31.8 g/dl (32.0-36.0); MEAN CELL VOLUME 95.7 fl (80-96); MEAN PLT VOLUME 9.3 fl (7.5-11.1); PLATELET COUNT 105 10^3/uL (134-434); RBC 3.07 M/mm3 (3.60-5.2); WHITE BLOOD COUNT 6.3 K/mm3 (4.0-10.0)
[2021-09-18 08:59] LABS: BLOOD UREA NITROGEN 19.4 mg/dL (7-18); CALCIUM 8.4 mg/dL (8.5-10.1)
[2021-09-18 09:03] LABS: CREATININE 3.1 mg/dL (0.55-1.3)
[2021-09-18] MEDS: FLUTICASONE PROP 0.05% 16 GM NASAL SPRAY NS SCH (10:16)
[2021-09-18] MEDS: hydrOXYzine PAMOATE 50 MG CAPSULE (FP) PO SCH ×4 (11:17→21:29)
[2021-09-18] MEDS: POLYETHYLENE GLYCOL (HEALTHYLAX) 3350 17 GM PACKET PO SCH (12:16)
[2021-09-18] MEDS: CALCIUM ACETATE 667 MG CAPSULE (FP) PO SCH ×3 (12:16→19:26)
[2021-09-18] MEDS: LIDOCAINE 5% TOPICAL PATCH TP SCH (12:16)
[2021-09-18] MEDS: TIOTROPIUM BROMIDE 2.5 MCG (SPIRIVA) RESPIMAT INHALER IH SCH (12:17)
[2021-09-18] MEDS: PANTOPRAZOLE SODIUM 40 MG VIAL IVPUSH SCH ×2 (12:17→21:28)
[2021-09-18] MEDS: VITAMIN B COMP W-C 1 EA TABLET (NEPHRO-VITE) PO SCH (12:17)
[2021-09-18] MEDS: NYSTATIN 100,000 UNIT/GM TOPICAL CREAM 15 GM TUBE TP SCH ×2 (12:17→21:28)
[2021-09-18] MEDS: QUEtiapine FUMARATE 100 MG TABLET (FP) PO SCH ×2 (12:17→21:29)
[2021-09-18] MEDS: oxyCODONE HCL 5 MG TABLET PO PRN (20:11)
[2021-09-18] MEDS: guaiFENesin 200 MG/10 ML 10 ML UNIT-DOSE CUPS PO PRN (20:12)
[2021-09-18] MEDS: ALBUTEROL SO4 0.083% IH SOL 2.5 MG/3 ML VIAL.NEB. NEB PRN (20:33)
[2021-09-18] MEDS: LIDOCAINE PATCH REMOVAL MC SCH (21:28)
[2021-09-18] MEDS: ATORVASTATIN CA 20 MG TABLET (FP) PO SCH (21:28)
[2021-09-18] MEDS: MIRTAZAPINE 15 MG TABLET (FP) PO SCH (21:29)
[2021-09-19] MEDS: oxyCODONE HCL 5 MG TABLET PO PRN ×2 (05:42→22:30)
[2021-09-19] MEDS: guaiFENesin 200 MG/10 ML 10 ML UNIT-DOSE CUPS PO PRN ×3 (05:42→21:28)
[2021-09-19] MEDS: ACETAMINOPHEN 325 MG TABLET (FP) PO PRN ×2 (05:42→17:20)
[2021-09-19] MEDS ORDERED: DEXTROSE 50%-WATER 25 GM/50 ML DISP.SYRIN IVPUSH ONE (07:17)
[2021-09-19 07:25] LABS: BASO % 0.7 % (0-2.0); EOS % 1.9 % (0-4.5); HEMATOCRIT 26.6 % (32.4-45.2); HEMOGLOBIN 8.3 GM/dL (10.7-15.3); LYMPH % 14.6 % (8-40); MCHC 31.2 g/dl (32.0-36.0); MEAN CELL VOLUME 96.1 fl (80-96); MEAN PLT VOLUME 9.8 fl (7.5-11.1); MONO % 7.1 % (3.8-10.2); NEUT % 75.7 % (42.8-82.8); PLATELET COUNT 77 10^3/uL (134-434); RBC 2.77 M/mm3 (3.60-5.2); RDW 17.9 % (11.6-15.6)
[2021-09-19 07:49] LABS: ALBUMIN 2.7 g/dl (3.4-5.0); MAGNESIUM 1.9 mg/dL (1.8-2.4)
[2021-09-19 07:50] LABS: BLOOD UREA NITROGEN 12.5 mg/dL (7-18)
[2021-09-19 07:52] LABS: CREATININE 2.4 mg/dL (0.55-1.3); PHOSPHOROUS 1.7 mg/dL (2.5-4.9)
[2021-09-19 07:54] LABS: BILIRUBIN,TOTAL 0.8 mg/dL (0.2-1)
[2021-09-19 07:56] LABS: TOT PROT 5.9 g/dl (6.4-8.2)
[2021-09-19] MEDS ORDERED: DEXTROSE 50%-WATER 25 GM/50 ML DISP.SYRIN ONE ×2 (08:11→08:15)
[2021-09-19] MEDS: CALCIUM ACETATE 667 MG CAPSULE (FP) PO SCH ×3 (09:49→17:04)
[2021-09-19] MEDS: POLYETHYLENE GLYCOL (HEALTHYLAX) 3350 17 GM PACKET PO SCH (09:49)
[2021-09-19] MEDS: MIDODRINE HCL 5 MG TABLET PO SCH ×2 (09:49→10:13)
[2021-09-19] MEDS: LIDOCAINE 5% TOPICAL PATCH TP SCH (09:50)
[2021-09-19] MEDS: TIOTROPIUM BROMIDE 2.5 MCG (SPIRIVA) RESPIMAT INHALER IH SCH (09:50)
[2021-09-19] MEDS: PANTOPRAZOLE SODIUM 40 MG VIAL IVPUSH SCH ×2 (09:50→21:28)
[2021-09-19] MEDS: NYSTATIN 100,000 UNIT/GM TOPICAL CREAM 15 GM TUBE TP SCH ×2 (09:50→21:34)
[2021-09-19] MEDS: QUEtiapine FUMARATE 100 MG TABLET (FP) PO SCH ×2 (09:50→21:28)
[2021-09-19] MEDS: VITAMIN B COMP W-C 1 EA TABLET (NEPHRO-VITE) PO SCH (09:50)
[2021-09-19] MEDS: hydrOXYzine PAMOATE 50 MG CAPSULE (FP) PO SCH ×4 (09:51→22:31)
[2021-09-19] MEDS: FLUTICASONE PROP 0.05% 16 GM NASAL SPRAY NS SCH (10:04)
[2021-09-19] MEDS: ALBUTEROL SO4 0.083% IH SOL 2.5 MG/3 ML VIAL.NEB. NEB PRN (15:43)
[2021-09-19] MEDS: MIRTAZAPINE 15 MG TABLET (FP) PO SCH (21:28)
[2021-09-19] MEDS: ATORVASTATIN CA 20 MG TABLET (FP) PO SCH (21:28)
[2021-09-19] MEDS: LIDOCAINE PATCH REMOVAL MC SCH (21:29)
[2021-09-20] MEDS: ALBUTEROL SO4 0.083% IH SOL 2.5 MG/3 ML VIAL.NEB. NEB PRN ×2 (02:56→20:10)
[2021-09-20] MEDS: oxyCODONE HCL 5 MG TABLET PO PRN (05:19)
[2021-09-20] MEDS: ACETAMINOPHEN 325 MG TABLET (FP) PO PRN (05:20)
[2021-09-20] MEDS: guaiFENesin 200 MG/10 ML 10 ML UNIT-DOSE CUPS PO PRN (05:21)
[2021-09-20 06:41] LABS: ALBUMIN 2.6 g/dl (3.4-5.0); CALCIUM 7.9 mg/dL (8.5-10.1); MAGNESIUM 1.8 mg/dL (1.8-2.4)
[2021-09-20 06:42] LABS: BASO % 0.7 % (0-2.0); BLOOD UREA NITROGEN 17.4 mg/dL (7-18); EOS % 2.5 % (0-4.5); HEMATOCRIT 26.6 % (32.4-45.2); HEMOGLOBIN 8.4 GM/dL (10.7-15.3); LYMPH % 11.4 % (8-40); MCH 30.2 pg (25.7-33.7); MCHC 31.6 g/dl (32.0-36.0); MEAN CELL VOLUME 95.5 fl (80-96); MEAN PLT VOLUME 9.8 fl (7.5-11.1); NEUT % 79.4 % (42.8-82.8); PLATELET COUNT 87 10^3/uL (134-434); RBC 2.79 M/mm3 (3.60-5.2); RDW 18.5 % (11.6-15.6)
[2021-09-20 06:43] LABS: PHOSPHOROUS 1.5 mg/dL (2.5-4.9)
[2021-09-20 06:45] LABS: BILIRUBIN,TOTAL 0.5 mg/dL (0.2-1); TOT PROT 5.9 g/dl (6.4-8.2)
[2021-09-20] MEDS: CALCIUM ACETATE 667 MG CAPSULE (FP) PO SCH ×3 (08:00→18:37)
[2021-09-20] MEDS ORDERED: NAPH,MB-DB/K PH,MBDB POWDER PACKET PO ONE (09:15)
[2021-09-20] MEDS ORDERED: guaiFENesin/D-METHORPHAN TAB.ER.12H PO SCH (10:00)
[2021-09-20] MEDS: FLUTICASONE PROP 0.05% 16 GM NASAL SPRAY NS SCH (11:22)
[2021-09-20] MEDS: VITAMIN B COMP W-C 1 EA TABLET (NEPHRO-VITE) PO SCH (11:23)
[2021-09-20] MEDS: guaiFENesin/D-METHORPHAN TAB.ER.12H PO SCH ×2 (11:23→21:29)
[2021-09-20] MEDS: NYSTATIN 100,000 UNIT/GM TOPICAL CREAM 15 GM TUBE TP SCH ×2 (11:23→21:29)
[2021-09-20] MEDS: MIDODRINE HCL 5 MG TABLET PO SCH (11:23)
[2021-09-20] MEDS: hydrOXYzine PAMOATE 50 MG CAPSULE (FP) PO SCH ×4 (11:23→21:29)
[2021-09-20] MEDS: PANTOPRAZOLE SODIUM 40 MG VIAL IVPUSH SCH ×2 (11:23→21:26)
[2021-09-20] MEDS: POLYETHYLENE GLYCOL (HEALTHYLAX) 3350 17 GM PACKET PO SCH (11:23)
[2021-09-20] MEDS: QUEtiapine FUMARATE 100 MG TABLET (FP) PO SCH ×2 (11:23→21:26)
[2021-09-20] MEDS: LIDOCAINE 5% TOPICAL PATCH TP SCH (11:23)
[2021-09-20] MEDS: TIOTROPIUM BROMIDE 2.5 MCG (SPIRIVA) RESPIMAT INHALER IH SCH (11:23)
[2021-09-20] MEDS ORDERED: ALPRAZolam 0.25 MG TABLET PO ONE (13:28)
[2021-09-20] MEDS: AMINO ACIDS 4.25%/D5W 1,000 ML IV SCH (18:37)
[2021-09-20] MEDS: ATORVASTATIN CA 20 MG TABLET (FP) PO SCH (21:26)
[2021-09-20] MEDS: MIRTAZAPINE 15 MG TABLET (FP) PO SCH (21:26)
[2021-09-20] MEDS: LIDOCAINE PATCH REMOVAL MC SCH (21:29)
[2021-09-21] MEDS: oxyCODONE HCL 5 MG TABLET PO PRN ×3 (05:14→18:30)
[2021-09-21] MEDS: guaiFENesin 200 MG/10 ML 10 ML UNIT-DOSE CUPS PO PRN ×2 (05:14→20:42)
[2021-09-21] MEDS ORDERED: LORazepam 2 MG/ML SDV VIAL IVPB ONE (06:40)
[2021-09-21 07:07] LABS: BASO % 0.9 % (0-2.0); EOS % 1.7 % (0-4.5); HEMATOCRIT 28.6 % (32.4-45.2); HEMOGLOBIN 9.1 GM/dL (10.7-15.3); LYMPH % 10.6 % (8-40); MCH 30.5 pg (25.7-33.7); MEAN CELL VOLUME 95.4 fl (80-96); MEAN PLT VOLUME 10.7 fl (7.5-11.1); MONO % 5.5 % (3.8-10.2); NEUT % 81.3 % (42.8-82.8); PLATELET COUNT 84 10^3/uL (134-434); RDW 18.2 % (11.6-15.6); WHITE BLOOD COUNT 6.1 K/mm3 (4.0-10.0)
[2021-09-21 07:32] LABS: ALBUMIN 2.4 g/dl (3.4-5.0); BLOOD UREA NITROGEN 22.5 mg/dL (7-18); MAGNESIUM 1.9 mg/dL (1.8-2.4)
[2021-09-21 07:35] LABS: CREATININE 3.5 mg/dL (0.55-1.3); PHOSPHOROUS 1.4 mg/dL (2.5-4.9)
[2021-09-21 07:36] LABS: TOT PROT 5.8 g/dl (6.4-8.2)
[2021-09-21 07:37] LABS: BILIRUBIN,TOTAL 0.6 mg/dL (0.2-1)
[2021-09-21] MEDS: ALBUMIN HUMAN 25% 12.5 GM/50 ML VIAL IV SCH ×4 (08:47→10:55)
[2021-09-21] MEDS ORDERED: SODIUM CHLORIDE 250 ML IV PRN (09:00)
[2021-09-21] MEDS ORDERED: EPOETIN ALFA-EPBX 10,000 UNIT/ML VIAL IVPUSH ONE (09:00)
[2021-09-21] MEDS: hydrOXYzine PAMOATE 50 MG CAPSULE (FP) PO SCH ×4 (10:27→22:32)
[2021-09-21] MEDS: MIDODRINE HCL 5 MG TABLET PO SCH (10:28)
[2021-09-21] MEDS: CALCIUM ACETATE 667 MG CAPSULE (FP) PO SCH ×3 (10:29→18:24)
[2021-09-21] MEDS: VITAMIN B COMP W-C 1 EA TABLET (NEPHRO-VITE) PO SCH (10:29)
[2021-09-21] MEDS: LIDOCAINE 5% TOPICAL PATCH TP SCH (10:29)
[2021-09-21] MEDS: POLYETHYLENE GLYCOL (HEALTHYLAX) 3350 17 GM PACKET PO SCH (10:30)
[2021-09-21] MEDS: PANTOPRAZOLE SODIUM 40 MG VIAL IVPUSH SCH ×2 (10:30→22:32)
[2021-09-21] MEDS: guaiFENesin/D-METHORPHAN TAB.ER.12H PO SCH ×2 (10:30→22:32)
[2021-09-21] MEDS: QUEtiapine FUMARATE 100 MG TABLET (FP) PO SCH ×2 (10:34→22:31)
[2021-09-21] MEDS: FLUTICASONE PROP 0.05% 16 GM NASAL SPRAY NS SCH (12:37)
[2021-09-21] MEDS: TIOTROPIUM BROMIDE 2.5 MCG (SPIRIVA) RESPIMAT INHALER IH SCH (12:41)
[2021-09-21] MEDS: NYSTATIN 100,000 UNIT/GM TOPICAL CREAM 15 GM TUBE TP SCH ×2 (12:41→22:32)
[2021-09-21] MEDS: ACETAMINOPHEN 325 MG TABLET (FP) PO PRN (14:12)
[2021-09-21] MEDS: AMINO ACIDS 4.25%/D5W 1,000 ML IV SCH (18:30)
[2021-09-21] MEDS: MIRTAZAPINE 15 MG TABLET (FP) PO SCH (22:31)
[2021-09-21] MEDS: ATORVASTATIN CA 20 MG TABLET (FP) PO SCH (22:31)
[2021-09-21] MEDS: LIDOCAINE PATCH REMOVAL MC SCH (22:32)
[2021-09-22] MEDS: guaiFENesin 200 MG/10 ML 10 ML UNIT-DOSE CUPS PO PRN ×2 (04:41→10:43)
[2021-09-22] MEDS: ACETAMINOPHEN 325 MG TABLET (FP) PO PRN ×3 (04:42→18:34)
[2021-09-22] MEDS: oxyCODONE HCL 5 MG TABLET PO PRN ×3 (04:42→18:34)
[2021-09-22 06:50] LABS: BASO % 0.4 % (0-2.0); EOS % 1.7 % (0-4.5); HEMATOCRIT 26.7 % (32.4-45.2); HEMOGLOBIN 8.1 GM/dL (10.7-15.3); LYMPH % 9.5 % (8-40); MCHC 30.5 g/dl (32.0-36.0); MEAN CELL VOLUME 98.3 fl (80-96); MEAN PLT VOLUME 9.8 fl (7.5-11.1); MONO % 6.1 % (3.8-10.2); NEUT % 82.3 % (42.8-82.8); PLATELET COUNT 72 10^3/uL (134-434); RBC 2.71 M/mm3 (3.60-5.2); WHITE BLOOD COUNT 4.7 K/mm3 (4.0-10.0)
[2021-09-22 07:18] LABS: CHLORIDE 96 mmol/L (98-107); SODIUM 132 mmol/L (136-145)
[2021-09-22 07:21] LABS: ALBUMIN 2.1 g/dl (3.4-5.0); ANION GAP 5 MMOL/L (8-16); BLOOD UREA NITROGEN 16.4 mg/dL (7-18); CALCIUM 7.2 mg/dL (8.5-10.1); CO2 31 mmol/L (21-32); GLUCOSE,RANDOM 228 mg/dL (74-106); MAGNESIUM 1.8 mg/dL (1.8-2.4)
[2021-09-22 07:24] LABS: CREATININE 2.7 mg/dL (0.55-1.3); SGOT/AST 7 U/L (15-37); SGPT/ALT 7 U/L (13-61)
[2021-09-22 07:26] LABS: BILIRUBIN,TOTAL 0.6 mg/dL (0.2-1); TOT PROT 5.5 g/dl (6.4-8.2)
[2021-09-22 07:27] LABS: ALK PHOS 46 U/L (45-117)
[2021-09-22] MEDS: ALBUTEROL SO4 0.083% IH SOL 2.5 MG/3 ML VIAL.NEB. NEB PRN ×4 (09:05→21:20)
[2021-09-22] MEDS ORDERED: NAPH,MB-DB/K PH,MBDB POWDER PACKET PO ONE (10:30)
[2021-09-22] MEDS: LIDOCAINE 5% TOPICAL PATCH TP SCH (10:42)
[2021-09-22] MEDS: POLYETHYLENE GLYCOL (HEALTHYLAX) 3350 17 GM PACKET PO SCH (10:42)
[2021-09-22] MEDS: FLUTICASONE PROP 0.05% 16 GM NASAL SPRAY NS SCH (10:42)
[2021-09-22] MEDS: guaiFENesin/D-METHORPHAN TAB.ER.12H PO SCH ×2 (10:44→22:34)
[2021-09-22] MEDS: NYSTATIN 100,000 UNIT/GM TOPICAL CREAM 15 GM TUBE TP SCH ×2 (10:44→22:34)
[2021-09-22] MEDS: VITAMIN B COMP W-C 1 EA TABLET (NEPHRO-VITE) PO SCH (10:45)
[2021-09-22] MEDS: PANTOPRAZOLE SODIUM 40 MG VIAL IVPUSH SCH ×2 (10:45→22:32)
[2021-09-22] MEDS: MIDODRINE HCL 5 MG TABLET PO SCH (10:45)
[2021-09-22] MEDS: hydrOXYzine PAMOATE 50 MG CAPSULE (FP) PO SCH ×4 (10:46→22:33)
[2021-09-22] MEDS: QUEtiapine FUMARATE 100 MG TABLET (FP) PO SCH ×2 (10:46→22:33)
[2021-09-22] MEDS: TIOTROPIUM BROMIDE 2.5 MCG (SPIRIVA) RESPIMAT INHALER IH SCH (10:47)
[2021-09-22] MEDS ORDERED: SODIUM PHOSPHATE - 20 MM in DEXTROSE 5%-WATER - 250 ML IVPB ONE (11:15)
[2021-09-22] MEDS: AMINO ACIDS 4.25%/D5W 1,000 ML IV SCH (12:30)
[2021-09-22] MEDS: CALCIUM ACETATE 667 MG CAPSULE (FP) PO SCH (13:05)
[2021-09-22] MEDS: AMINO ACIDS/PROTEIN HYDROLYS 30 ML LIQUID.PKT PO SCH (18:00)
[2021-09-22] MEDS: MIRTAZAPINE 15 MG TABLET (FP) PO SCH (22:32)
[2021-09-22] MEDS: LIDOCAINE PATCH REMOVAL MC SCH (22:32)
[2021-09-22] MEDS: ATORVASTATIN CA 20 MG TABLET (FP) PO SCH (22:33)
[2021-09-23] MEDS: ACETAMINOPHEN 325 MG TABLET (FP) PO PRN (03:05)
[2021-09-23] MEDS: oxyCODONE HCL 5 MG TABLET PO PRN (03:05)
[2021-09-23] MEDS: guaiFENesin 200 MG/10 ML 10 ML UNIT-DOSE CUPS PO PRN (03:05)
[2021-09-23] MEDS ORDERED: SODIUM CHLORIDE 250 ML IV PRN (07:00)
[2021-09-23] MEDS ORDERED: EPOETIN ALFA-EPBX 10,000 UNIT/ML VIAL SQ ONE (07:00)
[2021-09-23 09:03] LABS: CALCIUM 7.9 mg/dL (8.5-10.1)
[2021-09-23 09:04] LABS: BLOOD UREA NITROGEN 27.4 mg/dL (7-18)
[2021-09-23 09:06] LABS: CREATININE 3.2 mg/dL (0.55-1.3)
[2021-09-23] MEDS: MIDODRINE HCL 5 MG TABLET PO SCH (11:14)
[2021-09-23] MEDS: hydrOXYzine PAMOATE 50 MG CAPSULE (FP) PO SCH ×4 (11:14→21:31)
[2021-09-23] MEDS: AMINO ACIDS/PROTEIN HYDROLYS 30 ML LIQUID.PKT PO SCH ×2 (11:14→18:35)
[2021-09-23] MEDS: POLYETHYLENE GLYCOL (HEALTHYLAX) 3350 17 GM PACKET PO SCH (11:15)
[2021-09-23] MEDS: LIDOCAINE 5% TOPICAL PATCH TP SCH (11:15)
[2021-09-23] MEDS: FLUTICASONE PROP 0.05% 16 GM NASAL SPRAY NS SCH (11:15)
[2021-09-23] MEDS ORDERED: NAPH,MB-DB/K PH,MBDB POWDER PACKET PO ONE (11:16)
[2021-09-23] MEDS: NYSTATIN 100,000 UNIT/GM TOPICAL CREAM 15 GM TUBE TP SCH ×2 (11:16→21:31)
[2021-09-23] MEDS: guaiFENesin/D-METHORPHAN TAB.ER.12H PO SCH ×2 (11:16→21:31)
[2021-09-23] MEDS: VITAMIN B COMP W-C 1 EA TABLET (NEPHRO-VITE) PO SCH (11:17)
[2021-09-23] MEDS: QUEtiapine FUMARATE 100 MG TABLET (FP) PO SCH ×2 (11:19→21:31)
[2021-09-23] MEDS: PANTOPRAZOLE SODIUM 40 MG VIAL IVPUSH SCH ×2 (11:19→21:31)
[2021-09-23] MEDS: TIOTROPIUM BROMIDE 2.5 MCG (SPIRIVA) RESPIMAT INHALER IH SCH (11:20)
[2021-09-23] MEDS: clonazePAM 0.5 MG TABLET PO PRN (11:20)
[2021-09-23] MEDS: AMINO ACIDS 4.25%/D5W 1,000 ML IV SCH (16:20)
[2021-09-23] MEDS: ATORVASTATIN CA 20 MG TABLET (FP) PO SCH (21:31)
[2021-09-23] MEDS: MIRTAZAPINE 15 MG TABLET (FP) PO SCH (21:31)
[2021-09-23] MEDS: LIDOCAINE PATCH REMOVAL MC SCH (21:31)
[2021-09-24] MEDS ORDERED: DEXTROSE 50%-WATER - 25 GM/50 ML VIAL IVPUSH ONE (06:02)
[2021-09-24 08:09] LABS: BLOOD UREA NITROGEN 27.6 mg/dL (7-18); PHOSPHOROUS 1.7 mg/dL (2.5-4.9)
[2021-09-24 08:11] LABS: BILIRUBIN,TOTAL 0.7 mg/dL (0.2-1); CALCIUM 8.2 mg/dL (8.5-10.1)
[2021-09-24 08:12] LABS: CREATININE 2.6 mg/dL (0.55-1.3)
[2021-09-24 08:23] LABS: ALBUMIN 2.6 g/dl (3.4-5.0)
[2021-09-24] MEDS: ALBUTEROL SO4 0.083% IH SOL 2.5 MG/3 ML VIAL.NEB. NEB PRN ×2 (08:30→20:40)
[2021-09-24] MEDS: LIDOCAINE 5% TOPICAL PATCH TP SCH (10:42)
[2021-09-24] MEDS: AMINO ACIDS/PROTEIN HYDROLYS 30 ML LIQUID.PKT PO SCH ×2 (10:42→17:53)
[2021-09-24] MEDS: MIDODRINE HCL 5 MG TABLET PO SCH (10:43)
[2021-09-24] MEDS: PANTOPRAZOLE SODIUM 40 MG VIAL IVPUSH SCH ×2 (10:43→21:58)
[2021-09-24] MEDS: QUEtiapine FUMARATE 100 MG TABLET (FP) PO SCH ×2 (10:43→21:58)
[2021-09-24] MEDS: hydrOXYzine PAMOATE 50 MG CAPSULE (FP) PO SCH ×4 (10:43→21:59)
[2021-09-24] MEDS: POLYETHYLENE GLYCOL (HEALTHYLAX) 3350 17 GM PACKET PO SCH (10:43)
[2021-09-24] MEDS: VITAMIN B COMP W-C 1 EA TABLET (NEPHRO-VITE) PO SCH (10:44)
[2021-09-24] MEDS: guaiFENesin/D-METHORPHAN TAB.ER.12H PO SCH ×2 (10:45→21:59)
[2021-09-24] MEDS: FLUTICASONE PROP 0.05% 16 GM NASAL SPRAY NS SCH (10:45)
[2021-09-24] MEDS: TIOTROPIUM BROMIDE 2.5 MCG (SPIRIVA) RESPIMAT INHALER IH SCH (10:46)
[2021-09-24] MEDS: NYSTATIN 100,000 UNIT/GM TOPICAL CREAM 15 GM TUBE TP SCH ×2 (10:46→21:59)
[2021-09-24] MEDS ORDERED: SODIUM CHLORIDE 250 ML IV PRN (12:20)
[2021-09-24] MEDS: NAPH,MB-DB/K PH,MBDB POWDER PACKET PO SCH ×2 (15:44→17:53)
[2021-09-24] MEDS: AMINO ACIDS 4.25%/D5W 1,000 ML IV SCH (16:26)
[2021-09-24] MEDS: ACETAMINOPHEN 325 MG TABLET (FP) PO PRN (20:02)
[2021-09-24] MEDS: ATORVASTATIN CA 20 MG TABLET (FP) PO SCH (21:58)
[2021-09-24] MEDS: clonazePAM 0.5 MG TABLET PO PRN (21:58)
[2021-09-24] MEDS: MIRTAZAPINE 15 MG TABLET (FP) PO SCH (21:59)
[2021-09-24] MEDS: LIDOCAINE PATCH REMOVAL MC SCH (21:59)
[2021-09-25 06:41] LABS: HEMATOCRIT 29.4 % (32.4-45.2); HEMOGLOBIN 9.2 GM/dL (10.7-15.3); MCH 30.3 pg (25.7-33.7); MCHC 31.1 g/dl (32.0-36.0); MEAN CELL VOLUME 97.5 fl (80-96); MEAN PLT VOLUME 9.2 fl (7.5-11.1); PLATELET COUNT 98 10^3/uL (134-434); RBC 3.02 M/mm3 (3.60-5.2); RDW 19.3 % (11.6-15.6); WHITE BLOOD COUNT 4.7 K/mm3 (4.0-10.0)
[2021-09-25 07:03] LABS: BLOOD UREA NITROGEN 39.7 mg/dL (7-18); CALCIUM 8.1 mg/dL (8.5-10.1)
[2021-09-25] MEDS ORDERED: MIDODRINE HCL 5 MG TABLET PO ONE (07:08)
[2021-09-25] MEDS: MIDODRINE HCL 5 MG TABLET PO SCH (07:09)
[2021-09-25] MEDS: ALBUTEROL SO4 0.083% IH SOL 2.5 MG/3 ML VIAL.NEB. NEB PRN (07:20)
[2021-09-25] MEDS ORDERED: EPOETIN ALFA-EPBX 10,000 UNIT/ML VIAL IVPUSH ONE (08:45)
[2021-09-25] MEDS: NAPH,MB-DB/K PH,MBDB POWDER PACKET PO SCH ×2 (08:59→11:58)
[2021-09-25] MEDS: AMINO ACIDS/PROTEIN HYDROLYS 30 ML LIQUID.PKT PO SCH ×2 (08:59→18:42)
[2021-09-25] MEDS: FLUTICASONE PROP 0.05% 16 GM NASAL SPRAY NS SCH (09:02)
[2021-09-25] MEDS: TIOTROPIUM BROMIDE 2.5 MCG (SPIRIVA) RESPIMAT INHALER IH SCH (09:03)
[2021-09-25] MEDS: LIDOCAINE 5% TOPICAL PATCH TP SCH (09:51)
[2021-09-25] MEDS: POLYETHYLENE GLYCOL (HEALTHYLAX) 3350 17 GM PACKET PO SCH (09:51)
[2021-09-25] MEDS: VITAMIN B COMP W-C 1 EA TABLET (NEPHRO-VITE) PO SCH (09:52)
[2021-09-25] MEDS: guaiFENesin/D-METHORPHAN TAB.ER.12H PO SCH ×2 (09:52→21:23)
[2021-09-25] MEDS: PANTOPRAZOLE SODIUM 40 MG VIAL IVPUSH SCH ×2 (09:53→21:21)
[2021-09-25] MEDS: QUEtiapine FUMARATE 100 MG TABLET (FP) PO SCH ×2 (09:53→21:22)
[2021-09-25] MEDS: hydrOXYzine PAMOATE 50 MG CAPSULE (FP) PO SCH ×4 (09:53→21:22)
[2021-09-25] MEDS: NYSTATIN 100,000 UNIT/GM TOPICAL CREAM 15 GM TUBE TP SCH ×2 (09:59→21:23)
[2021-09-25 11:15] LABS: VENOUS O2 SATURATION 94.4 % (70-80)
[2021-09-25 11:17] LABS: VENOUS PH 7.192 (7.310-7.410)
[2021-09-25 11:18] LABS: VENOUS PCO2 81.1 mmHg (38-52)
[2021-09-25] MEDS: guaiFENesin 200 MG/10 ML 10 ML UNIT-DOSE CUPS PO PRN (11:54)
[2021-09-25] MEDS: AMINO ACIDS 4.25%/D5W 1,000 ML IV SCH (15:00)
[2021-09-25 19:08] LABS: FREE KAPPA,SERUM 272.1 mg/L (3.3-19.4)
[2021-09-25] MEDS ORDERED: MIDODRINE HCL 5 MG TABLET PO PRN (20:32)
[2021-09-25] MEDS: ACETAMINOPHEN 325 MG TABLET (FP) PO PRN (21:21)
[2021-09-25] MEDS: MIRTAZAPINE 15 MG TABLET (FP) PO SCH (21:22)
[2021-09-25] MEDS: ATORVASTATIN CA 20 MG TABLET (FP) PO SCH (21:22)
[2021-09-25] MEDS: LIDOCAINE PATCH REMOVAL MC SCH (21:23)
[2021-09-26] MEDS: ALBUTEROL SO4 0.083% IH SOL 2.5 MG/3 ML VIAL.NEB. NEB PRN
[2021-09-26] MEDS ORDERED: SODIUM CHLORIDE 250 ML IV STA (03:12)
[2021-09-26] MEDS: ACETAMINOPHEN 325 MG TABLET (FP) PO PRN ×2 (06:25→21:45)
[2021-09-26] MEDS: AMINO ACIDS/PROTEIN HYDROLYS 30 ML LIQUID.PKT PO SCH ×2 (08:54→18:27)
[2021-09-26] MEDS: LIDOCAINE 5% TOPICAL PATCH TP SCH (09:05)
[2021-09-26] MEDS: guaiFENesin/D-METHORPHAN TAB.ER.12H PO SCH ×2 (09:05→21:48)
[2021-09-26] MEDS: POLYETHYLENE GLYCOL (HEALTHYLAX) 3350 17 GM PACKET PO SCH (09:05)
[2021-09-26] MEDS: NYSTATIN 100,000 UNIT/GM TOPICAL CREAM 15 GM TUBE TP SCH ×2 (09:05→21:44)
[2021-09-26] MEDS: VITAMIN B COMP W-C 1 EA TABLET (NEPHRO-VITE) PO SCH (09:05)
[2021-09-26] MEDS: FLUTICASONE PROP 0.05% 16 GM NASAL SPRAY NS SCH (09:05)
[2021-09-26] MEDS: PANTOPRAZOLE SODIUM 40 MG VIAL IVPUSH SCH ×2 (09:06→21:45)
[2021-09-26] MEDS: QUEtiapine FUMARATE 100 MG TABLET (FP) PO SCH ×2 (09:06→21:45)
[2021-09-26] MEDS: TIOTROPIUM BROMIDE 2.5 MCG (SPIRIVA) RESPIMAT INHALER IH SCH (09:06)
[2021-09-26] MEDS: MIDODRINE HCL 5 MG TABLET PO SCH (09:06)
[2021-09-26] MEDS: hydrOXYzine PAMOATE 50 MG CAPSULE (FP) PO SCH ×4 (09:07→21:47)
[2021-09-26] MEDS: AMINO ACIDS 4.25%/D5W 1,000 ML IV SCH (12:02)
[2021-09-26] MEDS ORDERED: MIDODRINE HCL 5 MG TABLET PO ONE (18:44)
[2021-09-26] MEDS: LIDOCAINE PATCH REMOVAL MC SCH (21:44)
[2021-09-26] MEDS: ATORVASTATIN CA 20 MG TABLET (FP) PO SCH (21:44)
[2021-09-26] MEDS: MIRTAZAPINE 15 MG TABLET (FP) PO SCH (21:45)
[2021-09-26] MEDS: guaiFENesin 200 MG/10 ML 10 ML UNIT-DOSE CUPS PO PRN (21:46)
[2021-09-27] MEDS: AMINO ACIDS/PROTEIN HYDROLYS 30 ML LIQUID.PKT PO SCH ×2 (08:10→17:10)
[2021-09-27] MEDS: POLYETHYLENE GLYCOL (HEALTHYLAX) 3350 17 GM PACKET PO SCH (10:20)
[2021-09-27] MEDS: FLUTICASONE PROP 0.05% 16 GM NASAL SPRAY NS SCH (10:20)
[2021-09-27] MEDS: LIDOCAINE 5% TOPICAL PATCH TP SCH (10:20)
[2021-09-27] MEDS: guaiFENesin/D-METHORPHAN TAB.ER.12H PO SCH ×2 (10:21→21:53)
[2021-09-27] MEDS: NYSTATIN 100,000 UNIT/GM TOPICAL CREAM 15 GM TUBE TP SCH ×2 (10:21→21:53)
[2021-09-27] MEDS: QUEtiapine FUMARATE 100 MG TABLET (FP) PO SCH ×2 (10:21→21:53)
[2021-09-27] MEDS: hydrOXYzine PAMOATE 50 MG CAPSULE (FP) PO SCH ×4 (10:21→21:54)
[2021-09-27] MEDS: VITAMIN B COMP W-C 1 EA TABLET (NEPHRO-VITE) PO SCH (10:21)
[2021-09-27] MEDS: PANTOPRAZOLE SODIUM 40 MG VIAL IVPUSH SCH ×2 (10:21→21:53)
[2021-09-27] MEDS: TIOTROPIUM BROMIDE 2.5 MCG (SPIRIVA) RESPIMAT INHALER IH SCH (10:21)
[2021-09-27] MEDS: MIDODRINE HCL 5 MG TABLET PO SCH (10:21)
[2021-09-27] MEDS: ACETAMINOPHEN 325 MG TABLET (FP) PO PRN ×2 (10:22→21:54)
[2021-09-27] MEDS: AMINO ACIDS 4.25%/D5W 1,000 ML IV SCH (12:31)
[2021-09-27] MEDS: LIDOCAINE PATCH REMOVAL MC SCH (21:52)
[2021-09-27] MEDS: ATORVASTATIN CA 20 MG TABLET (FP) PO SCH (21:53)
[2021-09-27] MEDS: MIRTAZAPINE 15 MG TABLET (FP) PO SCH (21:53)
[2021-09-27] MEDS ORDERED: FAT EMULSION/OLIVE/SOY (CLINOLIPID) 250 ML EMULSION IV SCH (22:00)
[2021-09-27] MEDS: FAT EMUL/SOY/MCT/OLIV/FISH OIL 250 ML IV SCH (22:03)
[2021-09-28] MEDS: AMINO ACIDS 4.25%/D5W 1,000 ML IV SCH ×2 (06:26→18:22)
[2021-09-28] MEDS: MIDODRINE HCL 5 MG TABLET PO SCH ×2 (06:50→10:00)
[2021-09-28] MEDS: ALBUMIN HUMAN 25% 12.5 GM/50 ML VIAL IV SCH ×4 (07:15→09:00)
[2021-09-28] MEDS ORDERED: SODIUM CHLORIDE 250 ML IV PRN (08:00)
[2021-09-28] MEDS ORDERED: EPOETIN ALFA-EPBX 10,000 UNIT/ML VIAL SQ ONE (08:00)
[2021-09-28 08:24] LABS: HEMATOCRIT 27.5 % (32.4-45.2); HEMOGLOBIN 8.7 GM/dL (10.7-15.3); MCH 30.6 pg (25.7-33.7); MCHC 31.7 g/dl (32.0-36.0); MEAN CELL VOLUME 96.6 fl (80-96); MEAN PLT VOLUME 9.4 fl (7.5-11.1); PLATELET COUNT 73 10^3/uL (134-434); RBC 2.85 M/mm3 (3.60-5.2); RDW 19.3 % (11.6-15.6)
[2021-09-28 08:49] LABS: BLOOD UREA NITROGEN 48.4 mg/dL (7-18)
[2021-09-28 08:54] LABS: CREATININE 3.2 mg/dL (0.55-1.3); PHOSPHOROUS 2.2 mg/dL (2.5-4.9)
[2021-09-28 08:58] LABS: CHOLESTEROL < 50 mg/dL (50-200)
[2021-09-28 09:00] LABS: LDL CHOLESTEROL (ONLY SJRH) 9 mg/dL (5-100); TRIGLYCERIDES 105 mg/dL (0-150)
[2021-09-28 09:02] LABS: HDL CHOLESTEROL 17 mg/dL (40-60)
[2021-09-28] MEDS: AMINO ACIDS/PROTEIN HYDROLYS 30 ML LIQUID.PKT PO SCH ×2 (09:58→17:54)
[2021-09-28] MEDS: LIDOCAINE 5% TOPICAL PATCH TP SCH (09:59)
[2021-09-28] MEDS: POLYETHYLENE GLYCOL (HEALTHYLAX) 3350 17 GM PACKET PO SCH (09:59)
[2021-09-28] MEDS: NYSTATIN 100,000 UNIT/GM TOPICAL CREAM 15 GM TUBE TP SCH ×2 (10:04→23:00)
[2021-09-28] MEDS: VITAMIN B COMP W-C 1 EA TABLET (NEPHRO-VITE) PO SCH (10:05)
[2021-09-28] MEDS: PANTOPRAZOLE SODIUM 40 MG VIAL IVPUSH SCH ×2 (10:06→22:41)
[2021-09-28] MEDS: guaiFENesin/D-METHORPHAN TAB.ER.12H PO SCH ×2 (10:06→22:42)
[2021-09-28] MEDS: QUEtiapine FUMARATE 100 MG TABLET (FP) PO SCH ×2 (10:07→22:41)
[2021-09-28] MEDS: TIOTROPIUM BROMIDE 2.5 MCG (SPIRIVA) RESPIMAT INHALER IH SCH (10:07)
[2021-09-28] MEDS: hydrOXYzine PAMOATE 50 MG CAPSULE (FP) PO SCH ×4 (10:09→22:41)
[2021-09-28] MEDS: FLUTICASONE PROP 0.05% 16 GM NASAL SPRAY NS SCH (10:10)
[2021-09-28] MEDS: ACETAMINOPHEN 325 MG TABLET (FP) PO PRN ×2 (11:30→17:54)
[2021-09-28] MEDS: MIRTAZAPINE 15 MG TABLET (FP) PO SCH (22:41)
[2021-09-28] MEDS: FAT EMUL/SOY/MCT/OLIV/FISH OIL 250 ML IV SCH (22:41)
[2021-09-28] MEDS: ATORVASTATIN CA 20 MG TABLET (FP) PO SCH (22:41)
[2021-09-28] MEDS: LIDOCAINE PATCH REMOVAL MC SCH (22:42)
[2021-09-29] MEDS ORDERED: ALBUTEROL SO4 0.083% IH SOL 2.5 MG/3 ML VIAL.NEB. NEB ONE (01:30)
[2021-09-29] MEDS ORDERED: RAPID SEQUENCE INTUBATION KIT NR ONE (01:48)
[2021-09-29] MEDS ORDERED: ATROPINE SULFATE 1 MG/10 ML DISP.SYRIN ONE (01:54)
[2021-09-29] MEDS ORDERED: FENTANYL NS IVPB 500 MCG/100 ML BAG IVPB SCH (02:30)
[2021-09-29 03:05] LABS: ARTERIAL BLD GAS O2 SATURATION 27.7 % (95-98); ARTERIAL BLOOD GAS BASE EXCESS -8.5 mmol/L (-2-2)
[2021-09-29 03:19] LABS: ALLENS TEST POSITIVE; VENT MODE A/C; VENT RATE 18
[2021-09-29 04:00] LABS: HEMATOCRIT 28.9 % (32.4-45.2); MCH 30.3 pg (25.7-33.7); MCHC 31.3 g/dl (32.0-36.0); MEAN CELL VOLUME 96.6 fl (80-96); MEAN PLT VOLUME 10.3 fl (7.5-11.1); PLATELET COUNT 71 10^3/uL (134-434); RBC 2.99 M/mm3 (3.60-5.2); RDW 20.1 % (11.6-15.6)
[2021-09-29 04:09] LABS: ADD RBC MORPHOLOGY YES
[2021-09-29 04:21] LABS: CALCIUM 8.4 mg/dL (8.5-10.1)
[2021-09-29 04:22] LABS: ALBUMIN 2.6 g/dl (3.4-5.0); MAGNESIUM 1.6 mg/dL (1.8-2.4)
[2021-09-29 04:25] LABS: CREATININE 2.6 mg/dL (0.55-1.3); PHOSPHOROUS 2.1 mg/dL (2.5-4.9)
[2021-09-29 04:26] LABS: BILIRUBIN,TOTAL 0.9 mg/dL (0.2-1); TOT PROT 5.6 g/dl (6.4-8.2)
[2021-09-29 04:37] LABS: ANISOCYTOSIS 2+; MACROCYTOSIS 0; OVALOCYTE 2+; TARGET CELLS 1+; TEAR DROP CELLS 1+
[2021-09-29] MEDS ORDERED: SODIUM BICARBONATE 8.4% - 50 ML ONE (05:20)
[2021-09-29] MEDS ORDERED: SODIUM BICARBONATE 8.4% 50 MEQ/50 ML DISP.SYRIN IVPUSH ONE (05:43)
[2021-09-29] MEDS ORDERED: MAGNESIUM SULF 50% (8.12 MEQ/2 ML-1 GM VIAL) IVPB ONE (05:55)
[2021-09-29 06:13] LABS: ARTERIAL BLD GAS O2 SATURATION 96.7 % (95-98); ARTERIAL BLOOD GAS BASE EXCESS 0.2 mmol/L (-2-2); ARTERIAL BLOOD GAS pH 7.449 (7.350-7.450)
[2021-09-29 06:14] LABS: ALLENS TEST POSITIVE; VENT MODE A/C; VENT RATE 20
[2021-09-29] MEDS: KCL 10 MEQ IVPB 10 MEQ/100 ML INFUS.BAG IVPB SCH ×3 (06:32→09:04)
[2021-09-29] MEDS ORDERED: LORazepam 2 MG/ML SDV VIAL IVPUSH STA (07:55)
[2021-09-29] MEDS ORDERED: POTASSIUM PHOSPHATE 30 MM in SODIUM CHLORIDE 250 ML IVPB ONE (08:00)
[2021-09-29] MEDS: PANTOPRAZOLE SODIUM 40 MG VIAL IVPUSH SCH ×2 (09:01→21:40)
[2021-09-29] MEDS: TIOTROPIUM BROMIDE 2.5 MCG (SPIRIVA) RESPIMAT INHALER IH SCH (09:05)
[2021-09-29] MEDS: hydrOXYzine PAMOATE 50 MG CAPSULE (FP) PO SCH ×4 (09:32→21:42)
[2021-09-29] MEDS: AMINO ACIDS/PROTEIN HYDROLYS 30 ML LIQUID.PKT PO SCH ×2 (09:32→16:30)
[2021-09-29] MEDS: guaiFENesin/D-METHORPHAN TAB.ER.12H PO SCH ×2 (09:32→21:41)
[2021-09-29] MEDS: QUEtiapine FUMARATE 100 MG TABLET (FP) PO SCH ×2 (09:32→21:41)
[2021-09-29] MEDS: POLYETHYLENE GLYCOL (HEALTHYLAX) 3350 17 GM PACKET PO SCH (09:32)
[2021-09-29] MEDS: MIDODRINE HCL 5 MG TABLET PO SCH (09:32)
[2021-09-29] MEDS: VITAMIN B COMP W-C 1 EA TABLET (NEPHRO-VITE) PO SCH (09:32)
[2021-09-29] MEDS: FLUTICASONE PROP 0.05% 16 GM NASAL SPRAY NS SCH (09:33)
[2021-09-29] MEDS: LIDOCAINE 5% TOPICAL PATCH TP SCH (10:02)
[2021-09-29] MEDS: NOREPINEPHRINE BITARTRATE 16,000 MCG in DEXTROSE 5%-WATER - 16,000 MCG/500 ML INFUS.BAG IVPB SCH (10:18)
[2021-09-29] MEDS ORDERED: DEXTROSE 50%-WATER 25 GM/50 ML DISP.SYRIN ONE (10:23)
[2021-09-29] MEDS ORDERED: DEXTROSE 50%-WATER - 25 GM/50 ML VIAL IVPUSH ONE (10:26)
[2021-09-29] MEDS: NYSTATIN 100,000 UNIT/GM TOPICAL CREAM 15 GM TUBE TP SCH ×2 (10:29→21:41)
[2021-09-29] MEDS: MIDAZOLAM IN 0.9 % SOD.CHLORID 100 MG/100 ML PLAST..BAG IVPB SCH ×2 (10:47→15:59)
[2021-09-29] MEDS: MUPIROCIN 2% TOPICAL OINTMENT FOR DECOLONIZATION NS SCH ×2 (11:00→21:40)
[2021-09-29] MEDS: AMINO ACIDS 4.25%/D5W 1,000 ML IV SCH (15:20)
[2021-09-29] MEDS: CHLORHEXIDINE GLUCONATE 4% CLEANSER FOR DECOLONIZATION TP SCH (21:41)
[2021-09-29] MEDS: ATORVASTATIN CA 20 MG TABLET (FP) PO SCH (21:41)
[2021-09-29] MEDS: MIRTAZAPINE 15 MG TABLET (FP) PO SCH (21:41)
[2021-09-29] MEDS: LIDOCAINE PATCH REMOVAL MC SCH (21:41)
[2021-09-29] MEDS: FAT EMUL/SOY/MCT/OLIV/FISH OIL 250 ML IV SCH (23:28)
[2021-09-30] MEDS: AMINO ACIDS 4.25%/D5W 1,000 ML IV SCH ×2 (00:04→11:54)
[2021-09-30] MEDS: MIDAZOLAM IN 0.9 % SOD.CHLORID 100 MG/100 ML PLAST..BAG IVPB SCH ×3 (02:45→16:51)
[2021-09-30 07:08] LABS: HEMATOCRIT 26.3 % (32.4-45.2); HEMOGLOBIN 8.7 GM/dL (10.7-15.3); MCH 30.7 pg (25.7-33.7); MCHC 33.1 g/dl (32.0-36.0); MEAN CELL VOLUME 92.7 fl (80-96); MEAN PLT VOLUME 9.8 fl (7.5-11.1); PLATELET COUNT 76 10^3/uL (134-434); RBC 2.84 M/mm3 (3.60-5.2); RDW 19.8 % (11.6-15.6); WHITE BLOOD COUNT 6.8 K/mm3 (4.0-10.0)
[2021-09-30 07:17] LABS: CALCIUM 8.3 mg/dL (8.5-10.1)
[2021-09-30 07:18] LABS: ALBUMIN 2.5 g/dl (3.4-5.0); BLOOD UREA NITROGEN 45.8 mg/dL (7-18); MAGNESIUM 1.6 mg/dL (1.8-2.4)
[2021-09-30 07:21] LABS: CREATININE 2.8 mg/dL (0.55-1.3); PHOSPHOROUS 1.8 mg/dL (2.5-4.9)
[2021-09-30 07:22] LABS: TOT PROT 5.5 g/dl (6.4-8.2)
[2021-09-30 07:23] LABS: BILIRUBIN,TOTAL 1.2 mg/dL (0.2-1)
[2021-09-30] MEDS ORDERED: POTASSIUM PHOSPHATE 30 MM in SODIUM CHLORIDE 250 ML IVPB ONE (07:56)
[2021-09-30] MEDS ORDERED: MAGNESIUM 2GM/50ML STERILE WATER IVPB IVPB ONE (08:15)
[2021-09-30] MEDS: FLUTICASONE PROP 0.05% 16 GM NASAL SPRAY NS SCH (09:44)
[2021-09-30] MEDS: LIDOCAINE 5% TOPICAL PATCH TP SCH (09:44)
[2021-09-30] MEDS: MUPIROCIN 2% TOPICAL OINTMENT FOR DECOLONIZATION NS SCH ×2 (09:45→21:36)
[2021-09-30] MEDS: PANTOPRAZOLE SODIUM 40 MG VIAL IVPUSH SCH ×2 (09:46→21:36)
[2021-09-30] MEDS: MIDODRINE HCL 5 MG TABLET PO SCH (09:46)
[2021-09-30] MEDS: TIOTROPIUM BROMIDE 2.5 MCG (SPIRIVA) RESPIMAT INHALER IH SCH (09:47)
[2021-09-30] MEDS ORDERED: POTASSIUM PHOSPHATE 15 MM in SODIUM CHLORIDE 250 ML IVPB ONE (10:15)
[2021-09-30] MEDS: NOREPINEPHRINE BITARTRATE 16,000 MCG in DEXTROSE 5%-WATER - 16,000 MCG/500 ML INFUS.BAG IVPB SCH (10:15)
[2021-09-30] MEDS: NYSTATIN 100,000 UNIT/GM TOPICAL CREAM 15 GM TUBE TP SCH ×2 (10:28→21:36)
[2021-09-30 10:45] LABS: ANISOCYTOSIS 2+; MACROCYTOSIS 0; OVALOCYTE 2+; TEAR DROP CELLS 1+; TOXIC GRANULATION 2+
[2021-09-30] MEDS ORDERED: SODIUM CHLORIDE 250 ML IV PRN (13:48)
[2021-09-30] MEDS ORDERED: EPOETIN ALFA-EPBX 10,000 UNIT/ML VIAL SQ ONE (15:00)
[2021-09-30] MEDS: AMINO ACIDS/PROTEIN HYDROLYS 30 ML LIQUID.PKT PO SCH (16:55)
[2021-09-30] MEDS: LIDOCAINE PATCH REMOVAL MC SCH (21:36)
[2021-09-30] MEDS: CHLORHEXIDINE GLUCONATE 4% CLEANSER FOR DECOLONIZATION TP SCH (21:36)
[2021-09-30] MEDS: FAT EMUL/SOY/MCT/OLIV/FISH OIL 250 ML IV SCH (23:46)
[2021-10-01] MEDS: MIDAZOLAM IN 0.9 % SOD.CHLORID 100 MG/100 ML PLAST..BAG IVPB SCH ×2 (00:32→10:40)
[2021-10-01] MEDS: AMINO ACIDS 4.25%/D5W 1,000 ML IV SCH ×2 (05:17→06:53)
[2021-10-01] MEDS: NOREPINEPHRINE BITARTRATE 16,000 MCG in DEXTROSE 5%-WATER - 16,000 MCG/500 ML INFUS.BAG IVPB SCH ×2 (07:10→10:40)
[2021-10-01] MEDS ORDERED: MINERAL OIL/PETROLATUM,WHITE 3.5 GM TUBE OU SCH (10:00)
[2021-10-01] MEDS: PANTOPRAZOLE SODIUM 40 MG VIAL IVPUSH SCH (10:37)
[2021-10-01] MEDS: FLUTICASONE PROP 0.05% 16 GM NASAL SPRAY NS SCH (10:38)
[2021-10-01] MEDS: MIDODRINE HCL 5 MG TABLET PO SCH (10:38)
[2021-10-01] MEDS: TIOTROPIUM BROMIDE 2.5 MCG (SPIRIVA) RESPIMAT INHALER IH SCH (10:39)
[2021-10-01] MEDS: MUPIROCIN 2% TOPICAL OINTMENT FOR DECOLONIZATION NS SCH (10:39)
[2021-10-01] MEDS: NYSTATIN 100,000 UNIT/GM TOPICAL CREAM 15 GM TUBE TP SCH (10:39)
[2021-10-01] MEDS ORDERED: VASOPRESSIN 20 UNITS/ML VIAL IV ONE ×2 (11:19→17:19)
[2021-10-01] MEDS ORDERED: SODIUM CHLORIDE 250 ML IV PRN (15:16)
[2021-10-01] MEDS ORDERED: VASOPRESSIN 40 UNITS/100 ML BAG IV SCH (17:15)
[2021-10-01 18:47] VITALS: TEMP 98.2
[2021-10-01 20:11] VITALS: BP 65/52; PULSE 95
[2021-10-01] MEDS ORDERED: PHENYLEPHRINE NS PREMIX 50,000 MCG/500 ML BAG IVPB SCH ×2 (21:15)
[2021-10-02] MEDS ORDERED: EPOETIN ALFA-EPBX 10,000 UNIT/ML VIAL IVPUSH ONE (15:16)
[2021-10-02] MEDS ORDERED: ALBUMIN HUMAN 25% 12.5 GM/50 ML VIAL IV SCH (15:30)
== END 2021-10-01 23:34 | disposition expired | DRG 377 ==
LOC: JER 22:34 → JERBED 08-28 05:00 → J4S 08-28 18:39 → JICU 09-03 23:09 → J8W 09-09 19:18 → JICU 09-11 15:23 → J2W 09-21 06:18 → JICU 09-29 06:21
PROVIDERS: ADMIT Hospitalist; ATTEND Internal Medicine
PROC: 30233N1 Transfusion of Nonautologous Red Blood Cells into Peripheral Vein, Percutaneous Approach (ICD-10-PCS; 2021-09-04)
PROC: 30233L1 Transfusion of Nonautologous Fresh Plasma into Peripheral Vein, Percutaneous Approach (ICD-10-PCS; 2021-09-04)
PROC: 30233K1 Transfusion of Nonautologous Frozen Plasma into Peripheral Vein, Percutaneous Approach (ICD-10-PCS; 2021-09-04)
PROC: 30233R1 Transfusion of Nonautologous Platelets into Peripheral Vein, Percutaneous Approach (ICD-10-PCS; 2021-09-04)
PROC: 05HN33Z Insertion of Infusion Device into Left Internal Jugular Vein, Percutaneous Approach (ICD-10-PCS; 2021-09-04)
PROC: B544ZZA Ultrasonography of Left Jugular Veins, Guidance (ICD-10-PCS; 2021-09-04)
PROC: 05HM33Z Insertion of Infusion Device into Right Internal Jugular Vein, Percutaneous Approach (ICD-10-PCS; 2021-09-04)
PROC: B543ZZA Ultrasonography of Right Jugular Veins, Guidance (ICD-10-PCS; 2021-09-04)
PROC: 05HM33Z Insertion of Infusion Device into Right Internal Jugular Vein, Percutaneous Approach (ICD-10-PCS; 2021-09-13)
PROC: B543ZZA Ultrasonography of Right Jugular Veins, Guidance (ICD-10-PCS; 2021-09-13)
PROC: 05HC33Z Insertion of Infusion Device into Left Basilic Vein, Percutaneous Approach (ICD-10-PCS; 2021-09-15)
PROC: B51NZZZ Fluoroscopy of Left Upper Extremity Veins (ICD-10-PCS; 2021-09-15)
PROC: 0BH17EZ Insertion of Endotracheal Airway into Trachea, Via Natural or Artificial Opening (ICD-10-PCS; principal; 2021-09-29)
PROC: 5A1945Z Respiratory Ventilation, 24-96 Consecutive Hours (ICD-10-PCS; 2021-09-29)
PROC: 5A12012 Performance of Cardiac Output, Single, Manual (ICD-10-PCS; 2021-09-29)
PROC: 05HM33Z Insertion of Infusion Device into Right Internal Jugular Vein, Percutaneous Approach (ICD-10-PCS; 2021-09-29)
PROC: B543ZZA Ultrasonography of Right Jugular Veins, Guidance (ICD-10-PCS; 2021-09-29)
DX: K57.91 Diverticulosis of intestine, part unspecified, without perforation or abscess with bleeding (principal); N18.6 End stage renal disease; J81.0 Acute pulmonary edema; I50.33 Acute on chronic diastolic (congestive) heart failure; J96.21 Acute and chronic respiratory failure with hypoxia; J96.22 Acute and chronic respiratory failure with hypercapnia; I13.2 Hypertensive heart and chronic kidney disease with heart failure and with stage 5 chronic kidney disease, or end stage renal disease; Q61.3 Polycystic kidney, unspecified; Z68.41 Body mass index [BMI] 40.0-44.9, adult; J90 Pleural effusion, not elsewhere classified; J98.11 Atelectasis; J96.11 Chronic respiratory failure with hypoxia; D62 Acute posthemorrhagic anemia; J96.12 Chronic respiratory failure with hypercapnia; G93.1 Anoxic brain damage, not elsewhere classified; R57.8 Other shock; E11.22 Type 2 diabetes mellitus with diabetic chronic kidney disease; J45.909 Unspecified asthma, uncomplicated; Z99.2 Dependence on renal dialysis; J44.9 Chronic obstructive pulmonary disease, unspecified; E11.36 Type 2 diabetes mellitus with diabetic cataract; K21.9 Gastro-esophageal reflux disease without esophagitis; E21.3 Hyperparathyroidism, unspecified; R62.7 Adult failure to thrive; D69.6 Thrombocytopenia, unspecified; I46.9 Cardiac arrest, cause unspecified; E11.42 Type 2 diabetes mellitus with diabetic polyneuropathy; F17.210 Nicotine dependence, cigarettes, uncomplicated; G25.3 Myoclonus; R63.0 Anorexia; F41.9 Anxiety disorder, unspecified
CPT/HCPCS: 36415; 36430; 36511; 36569; 36600; 70450-TC; 71045-TC-FY; 71250-TC; 72170-TC-FY; 72191-TC; 74175-TC; 80048; 80053; 80061; 82784; 82803; 82962; 83605; 83690; 83735; 83880; 83883; 84100; 84155; 84165; 84484; 85025; 85027; 85610; 85730; 86334; 86803; 86850; 86900; 86901; 86922; 87040; 87070; 87077; 87081; 87186; 87205; 87340; 87804; 93005; 93010; 93306-TC; 93970-TC; 94002; 94640; 94660; 97116-GP; 97161-GP; 99285-25; C9803-CS; J3490; P9017; P9034; P9038; P9047; P9058; Q5106; Q9967; U0003; U0005